=== PATIENT | male | born 1950 | race American Indian/Alaskan Native ===

== ENCOUNTER 2018-11-20 16:27 | Inpatient (IN) | payer MEDICARE ==
[2018-11-20] MEDS ORDERED: NACL 0.9% 500 ML 500 ML IV ONE (16:31)
--- NOTE | 2018-11-20 16:32 | Emergency Department Report ---
ED Neuro Deficit HPI - General Chief Complaint: Neuro Symptoms/Deficit Stated Complaint: NEURO ISSUES Time Seen by Provider: 11/20/18 16:29 Source: patient, EMS (verbal report received from EMS.EMS notes not available at time of chart dictation), RN notes reviewed Mode of arrival: Stretcher Limitations: No Limitations - History of Present Illness Initial Comments: This is a 68-year-old gentleman. This patient is not known to this provider previously. The patient does not know who his primary care doctor is. He does not know if he takes any long-term medications. The patient is brought to the hospital by emergency medical services as a possible code stroke. As per verbal report from EMS, they were contacted because the patient had altered mental status and lateralizing weakness. Symptoms included altered mental status, left-sided weakness. In addition, the patient was reportedly hypotensive with a blood pressure of the 90s in the fiel d. They report normal Accu-Chek. Upon arrival to the emergency room, the symptoms are resolved. The patient has no complaints at this time. He denies physical pain. He has no recollection of any these symptoms occurring. At this point in time, his is not available for collateral information or additional history. The patient does not recall the event -: Sudden Location: speech, left arm, left leg, altered Presenting Symptoms: Present: Altered Mental Status History of same: No Place: home Quality: other Improves With: other Worsens With: other Context: sudden onset, other (patient has no recollection of the symptoms, therefore, no exacerbating or relieving factors, radiation, or qualitative descriptors that he is able to recall) Associated Symptoms: confusion - Related Data Allergies/Adverse Reactions: Allergies Allergy/AdvReac Type Severity Reaction Status Date / Time No Known Allergies Allergy Unverified 11/20/18 16:31 ED Review of Systems ROS: Stated complaint: NEURO ISSUES Other details as noted in HPI Comment: Unobtainable due to pts medical conditions (patient has no recollection of the event) Constitutional: denies: fever Eyes: denies: eye discharge ENT: denies: epistaxis Respiratory: denies: cough Cardiovascular: denies: chest pain Gastrointestinal: denies: abdominal pain Genitourinary: denies: urgency Neurological: confusion ED Past Medical Hx - Past Medical History Previous Medical History?: No - Surgical History Past Surgical History?: No ED Neuro Physical Exam - General Limitations: No Limitations General appearance: alert, anxious Suspected Stroke: No - Head Head exam: Present: atraumatic, normocephalic - Eye Eye exam: Present: normal appearance, EOMI. Absent: nystagmus - ENT ENT exam: Present: normal exam, normal orophraynx, mucous membranes moist, normal external ear exam - Neck Neck exam: Present: normal inspection, full ROM. Absent: tenderness, meningismus - Respiratory Respiratory exam: Present: normal lung sounds bilaterally. Absent: respiratory distress - Cardiovascular Cardiovascular Exam: Present: regular rate, normal rhythm, normal heart sounds. Absent: bradycardia, tachycardia, irregular rhythm, systolic murmur, diastolic murmur, rubs, gallop - GI/Abdominal GI/Abdominal exam: Present: soft. Absent: distended, tenderness, guarding, rebound, rigid, pulsatile mass - Rectal Rectal exam: Present: deferred - Extremities Exam Extremities exam: Present: normal inspection, full ROM, other (2+ pulses noted in the bilateral upper, lower extremities. There is no long bony tenderness. The pelvis is stable. Muscular compartments are soft. There is no redness, pus, streaking or crepitus noted.). Absent: pedal edema, joint swelling, calf tenderness - Back Exam Back exam: Present: normal inspection, full ROM. Absent: tenderness, CVA tenderness (R), CVA tenderness (L), paraspinal tenderness, vertebral tenderness - Neurological Exam Neurological exam: Present: alert, other (Extraocular movements are intact bilaterally. There is no facial droop. The tongue is midline. Patient speaking in full complete sentences. There is no dysphonia. Hearing is grossly intact bilaterally. Shoulder shrug is intact bilaterally. 5/5 strength bilateral upper, lower extremities. Sensation is intact to light touch bilateral upper, lower extremities.). Absent: motor sensory deficit - NIHSS Assessment Interval: Baseline 1a. Level of Consciousness: alert/keenly responsive 1b. LOC Questions: answers both correctly 1c. LOC Commands: performs tasks correctly 2. Best Gaze: normal 3. Visual: no visual loss 4. Facial Palsy: normal symmetrical movement 5b. Motor Arm Right: no drift 5a. Motor Arm Left: no drift 6a. Motor Leg Left: no drift 6b. Motor Leg Right: no drift 7. Limb Ataxia: absent 8. Sensory: normal 9. Best Language: no aphasia 10. Dysarthria: normal 11. Extinction/Inattention: no abnormality Total Score: 0 Stroke Severity: No Stroke Symptoms - Psychiatric Psychiatric exam: Present: anxious - Skin Skin exam: Present: warm, dry, intact, normal color. Absent: rash ED Course Vital Signs 11/20/18 11/20/18 11/20/18 17:49 18:26 18:31 Temperature 98.0 F Pulse Rate 71 81 Respiratory 20 15 Rate Blood Pressure 113/54 Blood Pressure 127/62 [Right] O2 Sat by Pulse 100 100 100 Oximetry - Reevaluation(s) Reevaluation #1: 11/20/18 18:36 Differential diagnosis, including not limited to: Toxic encephalopathy, metabolic encephalopathy, stroke, TIA, dehydration, pneumonia, urinary tract infection Assessment and plan: 68-year-old gentleman, presenting with resolved left-sided weakness, resolved confusion, alert to name and location, follows commands, with a nonfocal neurologic examination. Does not meet TPa criteria at this time. P atient seen and evaluated by myself and stroke neurologist, Dr. Watson who also agrees independently. The patient's examination at this time is not consistent with a large vessel occlusion. He is awake and protecting his airway, and moving 4 extremities without difficulty. In addition, the patient is found to have renal insufficiency, of unknown chronicity. Elevated troponin reviewed and a ppreciated, the patient is not having chest pain, this is likely a type II troponin leak, likely secondary to renal insufficiency. Patient will be admitted to the medical service for expedited stroke workup, and further evaluation of renal insufficiency. Discussed with nephrology, Dr. Brito, who will follow in consultation. Extremities to the patient, who verbalized understanding, and is amenable to this plan of care. 11/20/18 18:38 11/20/18 18:39 Reevaluation #2: 11/20/18 18:41 Dr Deisy Arauz to admit - Lab Data Result diagrams: 11/20/18 17:17 11/20/18 17:17 Lab Results 11/20/18 11/20/18 11/20/18 Range/Units 17:17 17:17 17:17 WBC 6.9 (4.5-11.0) K/mm3 RBC 3.24 L (3.65-5.03) M/mm3 Hgb 10.2 L (11.8-15.2) gm/dl Hct 29.7 L (35.5-45.6) % MCV 92 (84-94) fl MCH 31 (28-32) pg MCHC 34 (32-34) % RDW 16.7 H (13.2-15.2) % Plt Count 190 (140-440) K/mm3 Lymph % (Auto) 18.2 (13.4-35.0) % [place] % (Auto) 6.0 (0.0-7.3) % Eos % (Auto) 7.2 H (0.0-4.3) % Baso % (Auto) 0.7 (0.0-1.8) % Lymph # 1.3 (1.2-5.4) K/mm3 Furnas # 0.4 (0.0-0.8) K/mm3 Eos # 0.5 H (0.0-0.4) K/mm3 Baso # 0.0 (0.0-0.1) K/mm3 Seg Neutrophils % 67.9 (40.0-70.0) % Seg Neutrophils # 4.7 (1.8-7.7) K/mm3 PT 13.6 (12.2-14.9) Sec. INR 1.07 (0.87-1.13) APTT 29.9 (24.2-36.6) Sec. Thrombin Time 15.3 (15.1-19.6) Sec. Sodium 138 (137-145) mmol/L Potassium 4.6 (3.6-5.0) mmol/L Chloride 107.6 H (98-107) mmol/L Carbon Dioxide 17 L (22-30) mmol/L Anion Gap 18 mmol/L BUN 47 H (9-20) mg/dL Creatinine 7.4 H (0.8-1.5) mg/dL Estimated GFR 9 ml/min BUN/Creatinine Ratio 6 % Glucose 130 H (75-100) mg/dL POC Glucose (70-105) Lactic Acid (0.7-2.0) mmol/L Calcium 9.4 (8.4-10.2) mg/dL Total Bilirubin 0.30 (0.1-1.2) mg/dL AST 9 (5-40) units/L ALT 6 L (7-56) units/L Alkaline Phosphatase 60 (35-129) units/L Total Creatine Kinase 100 (55-170) units/L CK-MB (CK-2) 4.9 H (0.0-4.0) ng/mL CK-MB (CK-2) Rel Index 4.9 H (0-4) Troponin T 0.079 H (0.00-0.029) ng/mL Total Protein 7.0 (6.3-8.2) g/dL Albumin 3.9 (3.9-5) g/dL Albumin/Globulin Ratio 1.3 % Salicylates (2.8-20.0) mg/dL Acetaminophen (10.0-30.0) ug/mL Plasma/Serum Alcohol (0-0.07) % 11/20/18 11/20/18 11/20/18 Range/Units 17:17 17:17 17:17 WBC (4.5-11.0) K/mm3 RBC (3.65-5.03) M/mm3 Hgb (11.8-15.2) gm/dl Hct (35.5-45.6) % MCV (84-94) fl MCH (28-32) pg MCHC (32-34) % RDW (13.2-15.2) % Plt Count (140-440) K/mm3 Lymph % (Auto) (13.4-35.0) % Furn[place] % (Auto) (0.0-7.3) % Eos % (Auto) (0.0-4.3) % Baso % (Auto) (0.0-1.8) % Lymph # (1.2-5.4) K/mm3 Furn[place] # (0.0-0.8) K/mm3 Eos # (0.0-0.4) K/mm3 Baso # (0.0-0.1) K/mm3 Seg Neutrophils % (40.0-70.0) % Seg Neutrophils # (1.8-7.7) K/mm3 PT (12.2-14.9) Sec. INR (0.87-1.13) APTT (24.2-36.6) Sec. Thrombin Time (15.1-19.6) Sec. Sodium (137-145) mmol/L Potassium (3.6-5.0) mmol/L Chloride (98-107) mmol/L Carbon Dioxide (22-30) mmol/L Anion Gap mmol/L BUN (9-20) mg/dL Creatinine (0.8-1.5) mg/dL Estimated GFR ml/min BUN/Creatinine Ratio % Glucose (75-100) mg/dL POC Glucose (70-105) Lactic Acid 1.10 (0.7-2.0) mmol/L Calcium (8.4-10.2) mg/dL Total Bilirubin (0.1-1.2) mg/dL AST (5-40) units/L ALT (7-56) units/L Alkaline Phosphatase (35-129) units/L Total Creatine Kinase (55-170) units/L CK-MB (CK-2) (0.0-4.0) ng/mL CK-MB (CK-2) Rel Index (0-4) Troponin T (0.00-0.029) ng/mL Total Protein (6.3-8.2) g/dL Albumin (3.9-5) g/dL Albumin/Globulin Ratio % Salicylates < 0.3 L (2.8-20.0) mg/dL Acetaminophen < 5.0 L (10.0-30.0) ug/mL Plasma/Serum Alcohol (0-0.07) % 11/20/18 11/20/18 Range/Units 17:17 17:37 WBC (4.5-11.0) K/mm3 RBC (3.65-5.03) M/mm3 Hgb (11.8-15.2) gm/dl Hct (35.5-45.6) % MCV (84-94) fl MCH (28-32) pg MCHC (32-34) % RDW (13.2-15.2) % Plt Count (140-440) K/mm3 Lymph % (Auto) (13.4-35.0) % [place] % (Auto) (0.0-7.3) % Eos % (Auto) (0.0-4.3) % Baso % (Auto) (0.0-1.8) % Lymph # (1.2-5.4) K/mm3 Furn[place] # (0.0-0.8) K/mm3 Eos # (0.0-0.4) K/mm3 Baso # (0.0-0.1) K/mm3 Seg Neutrophils % (40.0-70.0) % Seg Neutrophils # (1.8-7.7) K/mm3 PT (12.2-14.9) Sec. INR (0.87-1.13) APTT (24.2-36.6) Sec. Thrombin Time (15.1-19.6) Sec. Sodium (137-145) mmol/L Potassium (3.6-5.0) mmol/L Chloride (98-107) mmol/L Carbon Dioxide (22-30) mmol/L Anion Gap mmol/L BUN (9-20) mg/dL Creatinine (0.8-1.5) mg/dL Estimated GFR ml/min BUN/Creatinine Ratio % Glucose (75-100) mg/dL POC Glucose 136 H (70-105) Lactic Acid (0.7-2.0) mmol/L Calcium (8.4-10.2) mg/dL Total Bilirubin (0.1-1.2) mg/dL AST (5-40) units/L ALT (7-56) units/L Alkaline Phosphatase (35-129) units/L Total Creatine Kinase (55-170) units/L CK-MB (CK-2) (0.0-4.0) ng/mL CK-MB (CK-2) Rel Index (0-4) Troponin T (0.00-0.029) ng/mL Total Protein (6.3-8.2) g/dL Albumin (3.9-5) g/dL Albumin/Globulin Ratio % Salicylates (2.8-20.0) mg/dL Acetaminophen (10.0-30.0) ug/mL Plasma/Serum Alcohol < 0.01 (0-0.07) % - EKG Data -: EKG Interpreted by Sc EKG shows normal: sinus rhythm Rate: normal When compared to previous EKG there are: previous EKG unavailable 11/20/18 18:38 There is no prior EKG available for comparison. This is a normal sinus rhythm, 70 bpm, GA interval prolonged, QTC prolonged, left ventricular hypertrophy, poor R progression, left axis deviation, left anterior fascicular block, the EKG is abnormal, the EKG is not consistent with ST elevation myocardial infarction. - Radiology Data Radiology results: report reviewed, image reviewed X-ray of the chest is negative for acute traumatic disease. Noncontrast CT scan of the brain is negative for acute disease. - Core Measures Measure Exclusions: not indicated - Thrombolytic Inclusion/Exclusion Thrombolytic Contraindications: Rapidily Improving s/s Critical Care Time: No Critical care attestation.: If time is entered above; I have spent that time in minutes in the direct care of this critically ill patient, excluding procedure time. ED Disposition Clinical Impression: Stroke (cerebrum) Qualifiers: CVA mechanism: unspecified Qualified Code(s): I63.9 - Cerebral infarction, unspecified Renal failure Qualifiers: Renal failure chronicity: unspecified chronicity Qualified Code(s): N19 - Unspecified kidney failure Disposition: OP ADMIT IP TO THIS HOSP Is pt being admited?: Yes Does the pt Need Aspirin: Yes Condition: Serious
--- NOTE | 2018-11-20 16:58 | Cat Scan Report ---
CT head/brain wo con INDICATION: Stroke symptoms. TECHNIQUE: Routine CT head without contrast. All CT scans at this location are performed using CT dos e reduction for ALARA by means of automated exposure control. COMPARISON: None. FINDINGS: BRAIN / INTRACRANIAL CONTENTS: No acute hemorrhage, mass effect, midline shift, or hydrocephalus. No appreciable acute large territorial or lacunar infarct. There are multiple small chronic-appearing in farcts in the bilateral basal ganglia as well as moderate microvascular angiopathic change in the jaime p cerebral white matter. ORBITS: No significant abnormality of visualized orbits. SINUSES / MASTOIDS: No significant abnormality of visualized sinuses and mastoid air cells. ADDITIONAL FINDINGS: None. IMPRESSION: 1. No acute intracranial abnormality. 2. Multiple chronic appearing lacunar infarcts in the basal ganglia. CRITICAL RESULT: Time of Discovery: 3:52 PM Time of Communication: 3:53 PM Central time Licensed Practitioner Receiving Report: Dr. Romero Read Back Performed: Yes. Signer Name: Jaylen Abbasi MD Signed: 11/20/2018 4:53 PM Workstation Name: [id number]
--- NOTE | 2018-11-20 17:12 | Emergency Department Report ---
ED Neuro Deficit HPI - General Chief Complaint: Neuro Symptoms/Deficit Stated Complaint: NEURO ISSUES Time Seen by Provider: 11/20/18 16:29 Source: patient, EMS Mode of arrival: Stretcher Limitations: No Limitations - History of Present Illness Initial Comments: [facility] Tele[facility]urology [facility] The patient was informed the neurology consult would happen via TeleHealth by way of interactive audio and visual telecommunications and consented to receiving care in this manner for acute stroke protocol. DATE: Nov 20 2018 Impression: Left sided hemiparesis confusion Not a tpa candidate due to: Minor nondisabling symptoms at this point Symptoms (not) consistent with LVO therefore no role for KAYA at the moment, however with rapidly improving symptoms that were so drastic to recommend CTA head and neck to exclude unlikely possibility of large vessel occlusion if no large vessel occlusion is seen of course recommend aspirin admission for stroke/seizure workup. It is unusual that his blood pressure was somewhat low in the 90s systolic range on arrival. He is not complaining of any chest pain and has intact pulses however Differential Diagnosis: 1. Cardioembolic stroke 2. Small vessel disease/lacune 3. Thromboembolic, [id number] mechanism 4. Hypercoagulable state-related infarct 5. Transient ischemic attack 6. Thrombotic mechanism, large artery disease Comments: Last known normal 15:50 per initial report family not yet arrived Door time 16:27 [facility] contacted: 16:29 [facility] at bedside: 16:37 NIHSS assessment time:16:41 Recommendations: - stroke /seizure workup - given rapid resolution of severe symptoms recommend cta h/n to exclude good collateral flow with LVO given still subtle left sided arm drift Inpatient neurology consultation Inpatient stroke evaluation as per Neurology/ Internal Medicine Discussed with ED MD Please call with questions CC left-sided weakness History of Present Illness Patient is a 68-year-old gentleman with a history of high blood pressure no other health issues who today per report was in his usual state of health until approximately 15:50. Apparently someone at his house called 911 because he seemed confused with left-sided weakness of the arm and leg. When EMS arrived they said he was completely flaccid on the left side and that his blood pressure was 90/40. There was no report of loss of consciousness. He takes no blood thinners and has no history of other conditions. The patient himself was not really aware of much in the way of symptoms. Unfortunately family has not yet arrived at bedside. But pressures now somewhat improved at 110 systolic with most of his symptoms resolved. He denies any headache chest pain or shortness of breath Diagnostic: CT head without contrast no acute changes Exam: 1a- LOC: Keenly responsive - =0 1b- LOC questions: Answers both questions correctly - 0 1c- LOC commands- Performs both tasks correctly- 0 2- Gaze: Normal; no gaze paresis or gaze deviation - 0 3- Visual [place]: normal, no Visual field deficit - 0 4- Facial movements: no facial palsy - 0 5- Upper limb motor -trace L upper extremity drift but no weakness on formal manual testing=1 6- Lower limb motor - no drift - 0 7- Limb Coordination: absent ataxia - 0 8- Sensory : no sensory loss - 0 9- Language - No aphasia - 0 10- Speech - No dysarthria -0 11- Neglect / Extinction - none found -0 NIHSS score 1 Medical Decision Making: - Extensive number of diagnosis or management options are considered above. - Extensive amount of complex data reviewed. - High risk of complication and/or morbidity or mortality are associated with differential diagnostic considerations above. - There may be Uncertain outcome and increased probability of prolonged fu nctional impairment or high probability of severe prolonged functional impairment associated with some of these differential diagnosis. Medical Data Reviewed: 1.Data reviewed include clinical labs, radiology, Medical Tests; 2.Tests results discussed w/performing or interpreting physician; 3.Obtaining/reviewing old medical records; 4.Obtaining case history from another source; 5.Independent review of image, tracing or specimen. Patient was informed the Neurology Consult would happen via telehealth (remote video) and consented to receiving care in this manner. -: Sudden - Related Data Allergies/Adverse Reactions: Allergies Allergy/AdvReac Type Severity Reaction Status Date / Time No Known Allergies Allergy Unverified 11/20/18 16:31 ED Review of Systems ROS: Stated complaint: NEURO ISSUES Other details as noted in HPI ED Past Medical Hx - Past Medical History Previous Medical History?: No - Surgical History Past Surgical History?: No ED Neuro Physical Exam - General Limitations: No Limitations Suspected Stroke: Yes - NIHSS Assessment Interval: Baseline 1a. Level of Consciousness: alert/keenly responsive 1b. LOC Questions: answers both correctly 1c. LOC Commands: performs tasks correctly 2. Best Gaze: normal 3. Visual: no visual loss 4. Facial Palsy: normal symmetrical movement 5b. Motor Arm Right: no drift 5a. Motor Arm Left: drift 6a. Motor Leg Left: no drift 6b. Motor Leg Right: no drift 7. Limb Ataxia: absent 8. Sensory: normal 9. Best Language: no aphasia 10. Dysarthria: normal 11. Extinction/Inattention: no abnormality Total Score: 1 Stroke Severity: Minor Stroke Critical care attestation.: If time is entered above; I have spent that time in minutes in the direct care of this critically ill patient, excluding procedure time. ED Disposition Clinical Impression: Stroke (cerebrum) Qualifiers: CVA mechanism: unspecified Qualified Code(s): I63.9 - Cerebral infarction, unspecified Disposition: DC-09 OP ADMIT IP TO THIS HOSP Is pt being admited?: Yes Does the pt Need Aspirin: Yes Condition: Stable
[2018-11-20 17:39] LABS: Basophils % (Auto) 0.7 % (0.0-1.8); Eosinophils # (Auto) 0.5 K/mm3 (0.0-0.4); Eosinophils % (Auto) 7.2 % (0.0-4.3); Hematocrit 29.7 % (35.5-45.6); Hemoglobin 10.2 gm/dl (11.8-15.2); Lymphocytes # (Auto) 1.3 K/mm3 (1.2-5.4); Lymphocytes % (Auto) 18.2 % (13.4-35.0); Mean Corpuscular HGB Conc 34 % (32-34); Mean Corpuscular Volume 92 fl (84-94); Monocytes # (Auto) 0.4 K/mm3 (0.0-0.8); Platelet Count 190 K/mm3 (140-440); Red Blood Count 3.24 M/mm3 (3.65-5.03); Red Cell Distribution Width 16.7 % (13.2-15.2)
--- NOTE | 2018-11-20 17:46 | XRay Report ---
CHEST 1 VIEW INDICATION / CLINICAL INFORMATION: weak ams hypotension. COMPARISON: None available. FINDINGS: SUPPORT DEVICES: None. HEART / MEDIASTINUM: Cardiomegaly LUNGS / PLEURA: Nodule in the right lower thorax laterally No pneumothorax. ADDITIONAL FINDINGS: No significant additional findings. IMPRESSION: Cardiomegaly. There is a small nodule in the right lower lung laterally Signer Name: Karel Mata MD FACDeisy Signed: 11/20/2018 5:41 PM Workstation Name: [id number]
[2018-11-20 18:04] LABS: Creatine Kinase MB 4.9 ng/mL (0.0-4.0)
[2018-11-20 18:05] LABS: Albumin 3.9 g/dL (3.9-5); Calcium 9.4 mg/dL (8.4-10.2)
[2018-11-20 18:13] LABS: INR 1.07 (0.87-1.13); Partial Thromboplastin Time 29.9 Sec. (24.2-36.6); Thrombin Time 15.3 Sec. (15.1-19.6)
[2018-11-20] MEDS ORDERED: BABY ASPIRIN PO ONE (18:40)
[2018-11-20 19:06] LABS: Chol/HDL Ratio 3.03 %
[2018-11-20] MEDS ORDERED: DULCOLAX PR PRN (20:41)
[2018-11-20] MEDS ORDERED: ZOFRAN IV PRN (20:41)
[2018-11-20] MEDS ORDERED: PROVENTIL IH PRN (20:41)
[2018-11-20] MEDS ORDERED: PHENERGAN PR PRN (20:41)
[2018-11-20] MEDS ORDERED: MILK OF MAGNESIA PO PRN (20:41)
[2018-11-20] MEDS ORDERED: TYLENOL PO PRN (20:41)
--- NOTE | 2018-11-20 20:41 | History and Physical Report ---
History of Present Illness Chief complaint: I felt funny History of present illness: 68 YO Male with No PMH presents to ED for evaluation. Pt is confused and unable to provide detailed history. Pt history taken from EMS, ED staff, and . As per , the patient was in his usual state on health today. Pt was found by his to have confusion, difficulty speaking, and Left sided weakness. EMS notified,and upon arrival the patient was found to have a neurologic deficit. A code stroke was called and the patient was transported to [facility]. Pt seen and evaluated in ED and found to have symptoms consistent with CVA. Teleneurology consulted. Pt deemed not to be a candidate for TPA. Pt admitted to telemetry and initiated on CVA protocol. Pt also found to have RUTH and Nephrology team consulted in ED. No prior admission for review. No medication listed for reconciliation at time of admission. No further history obtainable. Pt is confused at time of exam, but has positive gag reflex, and is able to protect his airway. Past History Past Medical History: No medical history, other (reviewed) Past Surgical History: No surgical history, Other (reviewed) Social history: , lives with family. denies: smoking, alcohol abuse, prescription drug abuse Family history: no significant family history (reviewed) Medications and Allergies Allergies Allergy/AdvReac Type Severity Reaction Status Date / Time No Known Allergies Allergy Unverified 11/20/18 16:31 Home Medications Medication Instructions Recorded Confirmed Last Taken Type No Known Home Medications [No 11/20/18 11/20/18 Unknown History Reported Home Medications] Review of Systems ROS unobtainable: due to mental status Exam - Constitutional Vitals: Temp Pulse Resp BP Pulse Ox 97.9 F 86 14 101/58 98 11/20/18 19:10 11/20/18 19:10 11/20/18 19:10 11/20/18 19:10 11/20/18 19:10 General appearance: Present: mild distress - EENT Eyes: Present: PERRL ENT: hearing intact, clear oral mucosa - Neck Neck: Present: supple, normal ROM - Respiratory Respiratory effort: normal Respiratory: bilateral: CTA - Cardiovascular Heart Sounds: Present: S1 & S2. Absent: rub, click - Extremities Extremities: pulses symmetrical, No edema Peripheral Pulses: within normal limits - Abdominal General gastrointestinal: Present: soft, non-tender, non-distended, normal bowel sounds Male genitourinary: Present: normal - Integumentary Integumentary: Present: clear, warm, dry - Musculoskeletal Musculoskeletal: left sided weakness - Psychiatric Psychiatric: no appropriate mood/affect, no intact judgment & insight, no memory intact - Neurologic Neurologic: CNII-XII intact, moves all extremities Results - Labs CBC & Chem 7: 11/20/18 17:17 11/20/18 17:17 Labs: Abnormal lab results 11/20/18 11/20/18 11/20/18 Range/Units 17:17 17:17 17:17 RBC 3.24 L (3.65-5.03) M/mm3 Hgb 10.2 L (11.8-15.2) gm/dl Hct 29.7 L (35.5-45.6) % RDW 16.7 H (13.2-15.2) % Eos % (Auto) 7.2 H (0.0-4.3) % Eos # 0.5 H (0.0-0.4) K/mm3 Chloride 107.6 H (98-107) mmol/L Carbon Dioxide 17 L (22-30) mmol/L BUN 47 H (9-20) mg/dL Creatinine 7.4 H (0.8-1.5) mg/dL Glucose 130 H (75-100) mg/dL POC Glucose (70-105) ALT 6 L (7-56) units/L CK-MB (CK-2) 4.9 H (0.0-4.0) ng/mL CK-MB (CK-2) Rel Index 4.9 H (0-4) Troponin T 0.079 H (0.00-0.029) ng/mL Salicylates < 0.3 L (2.8-20.0) mg/dL Acetaminophen (10.0-30.0) ug/mL 11/20/18 11/20/18 Range/Units 17:17 17:37 RBC (3.65-5.03) M/mm3 Hgb (11.8-15.2) gm/dl Hct (35.5-45.6) % RDW (13.2-15.2) % Eos % (Auto) (0.0-4.3) % Eos # (0.0-0.4) K/mm3 Chloride (98-107) mmol/L Carbon Dioxide (22-30) mmol/L BUN (9-20) mg/dL Creatinine (0.8-1.5) mg/dL Glucose (75-100) mg/dL POC Glucose 136 H (70-105) ALT (7-56) units/L CK-MB (CK-2) (0.0-4.0) ng/mL CK-MB (CK-2) Rel Index (0-4) Troponin T (0.00-0.029) ng/mL Salicylates (2.8-20.0) mg/dL Acetaminophen < 5.0 L (10.0-30.0) ug/mL Assessment and Plan - Patient Problems (1) CVA (cerebral vascular accident) Status: Acute Plan to address problem: CT Head,Neuro check, PT/OT/Speech therapy, Neuro Check, Seizure precautions, lipid panel, statin therapy, antiplatelet therapy, Echo, Carotid Doppler, neurol ogy consulted. (2) RTUH (acute kidney injury) Status: Acute Plan to address problem: nephrology consulted, urine electrolytes, monitor uop q shift, renal ultrasound (3) Encephalopathy Status: Acute Plan to address problem: CT Head, neuro check, seizure precautions, thyroid panel (4) DVT prophylaxis Status: Acute Plan to address problem: SCD to BLE while in bed,
[2018-11-21 00:37] LABS: Bacteria,Urine 1+ /HPF (Negative); Bilirubin,Urine NEG (Negative); Blood,Urine NEG (Negative); Color,Urine Yellow (Yellow); Mucus,Urine FEW /HPF; Urobilinogen,Urine < 2.0 mg/dL (<2.0); WBC,Urine < 1.0 /HPF (0.0-6.0)
[2018-11-21 00:39] LABS: Creatinine,Urine 167.3 mg/dL (0.1-20.0)
--- NOTE | 2018-11-21 08:08 | Consultation ---
History of Present Illness - Reason for Consult Consult date: 11/21/18 acute renal failure Requesting physician: EDITA ZARATE - History of Present Illness This is a 68 yo AAM with no significant PMH who BIBEMS to [facility] ED for evaluation of confusion and difficulty speaking. As per , the patient was in his usual state on health until yesterday AM, however in PM noticed change of pt's mental status and slurred speech along with left sided weakness. EMS not ified,and upon arrival the patient was found to have a neurologic deficit. A code stroke was called and the patient was transported to [facility]. Pt seen and evaluated in ED and found to have symptoms consistent with CVA. Teleneurology wasconsulted. Pt deemed not to be a candidate for TPA. Pt admitted to telemetry and initiated on CVA protocol. labs showed significantly elevated BUN/Cr at 47/7.4mg/dl for which renal consult is requested. Pt seen and examined this AM at bedside, he is more awake, alert, denies CP, palpitations, SOB, fever, chills, n/v/d, dysuria, abd pain. pt is not aware of any previous renal disease, denies recent NSAIDs use or IV contrast exposure. Past History Past Medical History: No medical history, other (reviewed) Past Surgical History: No surgical history, Other (reviewed) Social history: , lives with family. denies: smoking, alcohol abuse, prescription drug abuse Family history: no significant family history (reviewed) Medications and Allergies Allergies Allergy/AdvReac Type Severity Reaction Status Date / Time No Known Allergies Allergy Unverified 11/20/18 16:31 Home Medications Medication Instructions Recorded Confirmed Last Taken Type No Known Home Medications [No 11/20/18 11/20/18 Unknown History Reported Home Medications] Active Meds: Active Medications Acetaminophen (Tylenol) 650 mg PO Q4H PRN PRN Reason: Pain, Mild (1-3) Albuterol (Proventil) 2.5 mg IH Q3HRT PRN PRN Reason: Shortness Of Breath Aspirin (Aspirin) 325 mg PO QDAY BECKIE Atorvastatin Calcium (Lipitor) 40 mg PO QHS [facility] Last Admin: 11/21/18 01:07 Dose: 40 mg Documented by: Bisacodyl (Dulcolax) 10 mg [place] QDAY PRN PRN Reason: Constipation Magnesium Hydroxide (Milk Of Magnesia) 30 ml PO Q4H PRN PRN Reason: Constipation Metoclopramide HCl (Reglan) 10 mg PO Q6H PRN PRN Reason: Nausea And Vomiting Ondansetron HCl (Zofran) 4 mg IV Q8H PRN PRN Reason: Nausea And Vomiting Pneumococcal Polyvalent Vaccine (Pneumovax 23) 0.5 ml IM .ONCE ONE Stop: 11/21/18 12:01 Promethazine HCl (Phenergan) 25 mg [place] Q6H PRN PRN Reason: Nausea And Vomiting Sodium Chloride (Sodium Chloride Flush Syringe 10 Ml) 10 ml IV PRN PRN PRN Reason: LINE FLUSH Review of Systems All systems: negative Constitutional: fatigue, weakness Neurological: weakness, change in speech, change in mentation Exam - Vital Signs Vital signs: Vital Signs Pulse Resp BP Pulse Ox 71 20 113/54 100 11/20/18 17:49 11/20/18 17:49 11/20/18 17:49 11/20/18 17:49 - General Appearance General appearance: well-developed, well-nourished, appears stated age EENT: ATNC, PERRL, mucous membranes moist Neck: Present: neck supple Respiratory: Clear to Ascultation Heart: regular, S1S2 Gastrointestinal: Present: normoactive bowel sounds Integumentary: no rash, other (no edema ) Neurologic: no focal deficit, alert and oriented x3, strength 5/5, CN 3-12 intact Psychiatric: mood/affect appropriate, cooperative Results - Lab Results 11/20/18 17:17 11/20/18 17:17 Most recent lab results Calcium 9.4 mg/dL (8.4-10.2) 11/20/18 17:17 167.3 mg/dL (0.1-20.0) H 11/20/18 23:48 36 mmol/L 11/20/18 23:48 Laboratory Tests 11/20/18 11/20/18 11/20/18 17:17 17:17 17:17 Triglycerides 63 Cholesterol 161 LDL Cholesterol Direct 104 HDL Cholesterol 53 Cholesterol/HDL Ratio 3.03 Urine Color Urine Turbidity Urine pH Ur Specific [place] Urine Protein Urine Glucose (UA) Urine Ketones Urine Blood Urine Nitrite Urine Bilirubin Urine Urobilinogen Ur Leukocyte Esterase Urine WBC (Auto) Urine RBC (Auto) U Epithel Cells (Auto) Urine Bacteria (Auto) Urine Mucus Urine Creatinine Urine Sodium Salicylates < 0.3 L Acetaminophen < 5.0 L Plasma/Serum Alcohol 11/20/18 11/20/18 11/20/18 17:17 23:48 23:48 Triglycerides Cholesterol LDL Cholesterol Direct HDL Cholesterol Cholesterol/HDL Ratio Urine Color Yellow Urine Turbidity Clear Urine pH 5.0 Ur Specific [place] 1.012 Urine Protein 30 mg/dl Urine Glucose (UA) 50 Urine Ketones Neg Urine Blood Neg Urine Nitrite Neg Urine Bilirubin Neg Urine Urobilinogen < 2.0 Ur Leukocyte Esterase Neg Urine WBC (Auto) < 1.0 Urine RBC (Auto) 3.0 U Epithel Cells (Auto) < 1.0 Urine Bacteria (Auto) 1+ Urine Mucus Few Urine Creatinine 167.3 H Urine Sodium 36 Salicylates Acetaminophen Plasma/Serum Alcohol < 0.01 Assessment and Plan - Patient Problems (1) RUTH (acute kidney injury) Current Visit: No Status: Acute Plan to address problem: suspect acute pre-renal azotemia, UA shows no evidence of hematuria, only mild proteinuria. check urine protein/cr ratio. unclear whether patient has underlying CKD. Obtain renal US to assess kidney size, structural abnormalities. avoid nephrotoxins, NSAIDs, IV contrast. pt remains non-oliguric, currently without acute indication for renal replacement therapy. (2) CVA (cerebral vascular accident) Current Visit: No Status: Acute Plan to address problem: initial CT head showed no acute findings, however multiple chronic appearing lacunar infarcts in the basal ganglia reported. (3) Encephalopathy Current Visit: No Status: Acute Plan to address problem: improving
[2018-11-21] MEDS: ASPIRIN PO SCH ×2 (11:29→12:16)
[2018-11-21] MEDS ORDERED: PNEUMOVAX 23 IM ONE (12:00)
--- NOTE | 2018-11-21 12:57 | Progress Note ---
Subjective Date of service: 11/21/18 Interval history: patient seen and evaluated she is very confused suspect metablic factors prwesently has memory loss and VT shows severe atrohpy Objective - Vital Sign Vital Signs - 12hr 11/21/18 11/21/18 11/21/18 04:18 04:20 07:50 Temperature 98.5 F 98.4 F Pulse Rate 71 71 Respiratory 18 16 Rate Blood Pressure 146/73 151/78 O2 Sat by Pulse 99 100 Oximetry 11/21/18 10:00 Temperature Pulse Rate 76 Respiratory Rate Blood Pressure O2 Sat by Pulse Oximetry - Laboratory Findings CBC and BMP: 11/20/18 17:17 11/20/18 17:17 Abnormal Lab Findings: Abnormal Labs 11/20/18 11/20/18 11/20/18 17:17 17:17 17:17 RBC 3.24 L Hgb 10.2 L Hct 29.7 L RDW 16.7 H Eos % (Auto) 7.2 H Eos # 0.5 H Chloride 107.6 H Carbon Dioxide 17 L BUN 47 H Creatinine 7.4 H Glucose 130 H POC Glucose ALT 6 L CK-MB (CK-2) 4.9 H CK-MB (CK-2) Rel Index 4.9 H Troponin T 0.079 H Urine Creatinine Salicylates < 0.3 L Acetaminophen 11/20/18 11/20/18 11/20/18 17:17 17:37 23:48 RBC Hgb Hct RDW Eos % (Auto) Eos # Chloride Carbon Dioxide BUN Creatinine Glucose POC Glucose 136 H ALT CK-MB (CK-2) CK-MB (CK-2) Rel Index Troponin T Urine Creatinine 167.3 H Salicylates Acetaminophen < 5.0 L
--- NOTE | 2018-11-21 13:06 | Progress Note ---
Assessment and Plan Assessment and plan: Patient is 68 yo man without chronic known medical problems who presents to [facility] ED with AMS. As per , the patient had confusion, difficulty speaking, and Left sided weakness. EMS notified,and upon arrival the patient was found to have a neurologic deficit. A code stroke was called and the patient was transported to [facility]. Pt seen and evaluated in ED and found to have symptoms consistent with CVA. Teleneurology consulted. Pt deemed not to be a candidate for TPA. Pt admitted to telemetry and initiated on CVA protocol. Pt also found to have RUTH and Nephrology team consulted in ED. No prior admission for review. No medication listed for reconciliation at time of admission. No further history obtainable. Pt is confused at time of exam, but has positive gag reflex, and is able to protect his airway. -CVA (cerebral vascular accident) Status: Acute Plan to address problem: CT Head,Neuro check, PT/OT/Speech therapy, Neuro Check, Seizure precautions, lipid panel, statin therapy, antiplatelet therapy, Echo, Carotid Doppler, neurology consulted. - RUTH (acute kidney injury) Status: Acute Plan to address problem: vasomotor nephropathy+atn nephrology consulted, urine electrolytes, monitor uop q shift, renal ultrasound -Acute metabolic Encephalopathy Status: Acute Plan to address problem: CT Head, neuro check, seizure precautions, thyroid panel -Elevated troponin repeat, suspect related to Cr of 7.4 -DVT prophylaxis Status: Acute Plan to address problem: SCD to BLE while in bed, renal u/s pending MRI ordered follow up repeat troponin History Interval history: Patient was seen and examined. Follow-up on current diagnosis of AMS. No overnight events reported to me. Patient denies any chest pain, shortness breath, nausea/vomiting or severe headaches. Imaging, nursing note, chart, labs and old chart reviewed. Discussed with patient. Hospitalist Physical - Physical exam Narrative exam: Gen: WDWN, NAD, Awake, Alert, Orientated x 1 HEENT: NCAT, EOMI, PERRL, OP Clear Neck: supple, no adenopathy, no thyromegaly, no JVD CVS/Heart: RRR, normal S1S2, pulses present bilaterally Chest/Lungs: CTA B, Symmetrical chest expansion, good air entry bilaterally GI/Abdomen: soft, NTND, good bowel sounds, no guarding or rebound /Bladder: no suprapubic tenderness, no CVA or paraspinal tenderness Extermity/Skin: no c/c/e, no obvious rash MSK: FROM x 4 Neuro: CN 2-12 grossly intact, no new focal deficits Psych: calm - Constitutional Vitals: Temp Pulse Resp BP Pulse Ox 98.4 F 76 16 151/78 100 11/21/18 07:50 11/21/18 10:00 11/21/18 07:50 11/21/18 07:50 11/21/18 07:50 Results - Labs CBC & Chem 7: 11/20/18 17:17 11/20/18 17:17 Labs: Laboratory Last Values WBC 6.9 K/mm3 (4.5-11.0) 11/20/18 17:17 RBC 3.24 M/mm3 (3.65-5.03) L 11/20/18 17:17 Hgb 10.2 gm/dl (11.8-15.2) L 11/20/18 17:17 Hct 29.7 % (35.5-45.6) L 11/20/18 17:17 MCV 92 fl (84-94) 11/20/18 17:17 MCH 31 pg (28-32) 11/20/18 17:17 MCHC 34 % (32-34) 11/20/18 17:17 RDW 16.7 % (13.2-15.2) H 11/20/18 17:17 Plt Count 190 K/mm3 (140-440) 11/20/18 17:17 Lymph % (Auto) 18.2 % (13.4-35.0) 11/20/18 17:17 [place] % (Auto) 6.0 % (0.0-7.3) 11/20/18 17:17 Eos % (Auto) 7.2 % (0.0-4.3) H 11/20/18 17:17 Baso % (Auto) 0.7 % (0.0-1.8) 11/20/18 17:17 Lymph # 1.3 K/mm3 (1.2-5.4) 11/20/18 17:17 [place] # 0.4 K/mm3 (0.0-0.8) 11/20/18 17:17 Eos # 0.5 K/mm3 (0.0-0.4) H 11/20/18 17:17 Baso # 0.0 K/mm3 (0.0-0.1) 11/20/18 17:17 Seg Neutrophils % 67.9 % (40.0-70.0) 11/20/18 17:17 Seg Neutrophils # 4.7 K/mm3 (1.8-7.7) 11/20/18 17:17 PT 13.6 Sec. (12.2-14.9) 11/20/18 17:17 INR 1.07 (0.87-1.13) 11/20/18 17:17 APTT 29.9 Sec. (24.2-36.6) 11/20/18 17:17 15.3 Sec. (15.1-19.6) 11/20/18 17:17 Sodium 138 mmol/L (137-145) 11/20/18 17:17 Potassium 4.6 mmol/L (3.6-5.0) 11/20/18 17:17 Chloride 107.6 mmol/L (98-107) H 11/20/18 17:17 Carbon Dioxide 17 mmol/L (22-30) L 11/20/18 17:17 18 mmol/L 11/20/18 17:17 BUN 47 mg/dL (9-20) H 11/20/18 17:17 7.4 mg/dL (0.8-1.5) H 11/20/18 17:17 Estimated GFR 9 ml/min 11/20/18 17:17 6 % 11/20/18 17:17 Glucose 130 mg/dL (75-100) H 11/20/18 17:17 POC Glucose 136 (70-105) H 11/20/18 17:37 Lactic Acid 1.10 mmol/L (0.7-2.0) 11/20/18 17:17 Calcium 9.4 mg/dL (8.4-10.2) 11/20/18 17:17 0.30 mg/dL (0.1-1.2) 11/20/18 17:17 AST 9 units/L (5-40) 11/20/18 17:17 ALT 6 units/L (7-56) L 11/20/18 17:17 60 units/L (35-129) 11/20/18 17:17 100 units/L (55-170) 11/20/18 17:17 CK-MB (CK-2) 4.9 ng/mL (0.0-4.0) H 11/20/18 17:17 CK-MB (CK-2) Rel Index 4.9 (0-4) H 11/20/18 17:17 0.079 ng/mL (0.00-0.029) H 11/20/18 17:17 7.0 g/dL (6.3-8.2) 11/20/18 17:17 3.9 g/dL (3.9-5) 11/20/18 17:17 1.3 % 11/20/18 17:17 Triglycerides 63 mg/dL (2-149) 11/20/18 17:17 Cholesterol 161 mg/dL (50-199) 11/20/18 17:17 104 mg/dL (50-130) 11/20/18 17:17 53 mg/dL (40-59) 11/20/18 17:17 3.03 % 11/20/18 17:17 TSH 2.960 mlU/mL (0.270-4.200) 11/20/18 Unknown Yellow (Yellow) 11/20/18 23:48 Clear (Clear) 11/20/18 23:48 5.0 (5.0-7.0) 11/20/18 23:48 Ur Specific [place] 1.012 (1.003-1.030) 11/20/18 23:48 30 mg/dl mg/dL (Negative) 11/20/18 23:48 50 mg/dL (Negative) 11/20/18 23:48 Neg mg/dL (Negative) 11/20/18 23:48 Neg (Negative) 11/20/18 23:48 Neg (Negative) 11/20/18 23:48 Neg (Negative) 11/20/18 23:48 < 2.0 mg/dL (<2.0) 11/20/18 23:48 Ur Leukocyte Esterase Neg (Negative) 11/20/18 23:48 < 1.0 /HPF (0.0-6.0) 11/20/18 23:48 3.0 /HPF (0.0-6.0) 11/20/18 23:48 U Epithel Cells (Auto) < 1.0 /HPF (0-13.0) 11/20/18 23:48 1+ /HPF (Negative) 11/20/18 23:48 Few /HPF 11/20/18 23:48 167.3 mg/dL (0.1-20.0) H 11/20/18 23:48 36 mmol/L 11/20/18 23:48 Salicylates < 0.3 mg/dL (2.8-20.0) L 11/20/18 17:17 Acetaminophen < 5.0 ug/mL (10.0-30.0) L 11/20/18 17:17 Plasma/Serum Alcohol < 0.01 % (0-0.07) 11/20/18 17:17 Active Medications - Current Medications Current Medications: Generic Name Dose Route Start Last Admin Trade Name Freq PRN Reason Stop Dose Admin Acetaminophen 650 mg 11/20/18 20:41 Tylenol PO Q4H PRN Pain, Mild (1-3) Albuterol 2.5 mg 11/20/18 20:41 Proventil IH Q3HRT PRN Shortness Of Breath Aspirin 325 mg 11/21/18 10:00 11/21/18 12:16 Aspirin PO 325 mg QDAY BECKIE Administration Atorvastatin Calcium 40 mg 11/20/18 22:00 11/21/18 01:07 Lipitor PO 40 mg QHS BECKIE Administration Bisacodyl 10 mg 11/20/18 20:41 Dulcolax MD QDAY PRN Constipation Magnesium Hydroxide 30 ml 11/20/18 20:41 Milk Of Magnesia PO Q4H PRN Constipation Metoclopramide HCl 10 mg 11/20/18 20:41 Reglan PO Q6H PRN Nausea And Vomiting Ondansetron HCl 4 mg 11/20/18 20:41 Zofran IV Q8H PRN Nausea And Vomiting Promethazine HCl 25 mg 11/20/18 20:41 Phenergan MD Q6H PRN Nausea And Vomiting Sodium Chloride 10 ml 11/20/18 20:41 Sodium Chloride Flush Syringe 10 Ml IV PRN PRN LINE FLUSH
--- NOTE | 2018-11-21 13:07 | Vascular Lab Report ---
VL carotid duplex BILAT INDICATION / CLINICAL INFORMATION: stroke. Doppler ultrasound and spectral analysis was performed on both carotid arteries COMPARISON: None available. FINDINGS: Minimal plaque is seen bilaterally. Peak systolic velocity is 88 on the right and 102 on the left. En d-diastolic velocity is 27 on the right and 25 on the left. Systolic velocity ratio is 1.1 on the rig ht and 1.0 on the left. Antegrade flow is seen in both vertebral arteries. IMPRESSION: 20-30% stenosis of both internal carotid arteries based on velocity criteria similar to the NASCET cr iteria. No hemodynamically significant stenosis. Signer Name: Karel Mata MD FACR Signed: 11/21/2018 1:03 PM Workstation Name: [id number]
--- NOTE | 2018-11-21 13:33 | Ultrasound Report ---
ULTRASOUND RENAL INDICATION / CLINICAL INFORMATION: Acute renal failure. COMPARISON: None available. FINDINGS: RIGHT KIDNEY: Length = 9 cm. LEFT KIDNEY: Length = 9 cm. URINARY BLADDER: No significant abnormality. FREE FLUID: None. Echogenic kidneys. IMPRESSION: Echogenic kidneys consistent with medical renal disease. No hydronephrosis. Signer Name: Tyson Wan MD Signed: 11/21/2018 1:29 PM Workstation Name: [id number]
[2018-11-21 20:23] LABS: Creatinine,Urine 96.4 mg/dL (0.1-20.0)
--- NOTE | 2018-11-22 11:02 | Progress Note ---
Assessment and Plan Assessment and plan: Patient is 68 yo man without chronic known medical problems who presents to [facility] ED with AMS. As per , the patient had confusion, difficulty speaking, and Left sided weakness. EMS notified,and upon arrival the patient was found to have a neurologic deficit. A code stroke was called and the patient was transported to [facility]. Pt seen and evaluated in ED and found to have symptoms consistent with CVA. Teleneurology consulted. Pt deemed not to be a candidate for TPA. Pt admitted to telemetry and initiated on CVA protocol. Pt also found to have RUTH and Nephrology team consulted in ED. No prior admission for review. No medication listed for reconciliation at time of admission. No further history obtainable. Pt is confused at time of exam, but has positive gag reflex, and is able to protect his airway. MRI: 1. Evidence of multiple remote hypertensive microhemorrhages. 2. Evidence of multiple remote small deep infarctions. 3. Evidence of remote hemorrhagic infarction involving the left occipital lobe. 4. 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 5. No indication of acute infarction or recent hemorrhage is identified. -CVA (cerebral vascular accident) CT Head,Neuro check, PT/OT/Speech therapy, Neuro Check, Seizure precautions, lipid panel, statin therapy, antiplatelet therapy, Echo, Carotid Doppler, neurology consulted. workup including MRI-No acute stroke but multiple remote hypertensive microhemorrhages, and remote hemorrhagic Infarction involving the left occipital lobe Neurology is of opinion that this is metabolic in nature - RUTH (acute kidney injury) secondary to vasomotor nephropathy+atn nephrology consulted, urine electrolytes, monitor uop q shift, renal ultrasound -Metabolic Acidosis likely progression of disease. -Acute metabolic Encephalopathy CT Head, neuro check, seizure precautions, thyroid panel -[place] type 2 repeat, suspect related to Cr of 7.4 -DVT prophylaxis SCD to BLE while in bed, History Interval history: Patient seen and examined. No complaints at this time. Hospitalist Physical - Physical exam Narrative exam: Gen: WDWN, NAD, Awake, Alert, Orientated x 2 HEENT: NCAT, EOMI, PERRL, OP Clear Neck: supple, no adenopathy, no thyromegaly, no JVD CVS/Heart: RRR, normal S1S2, pulses present bilaterally Chest/Lungs: CTA B, Symmetrical chest expansion, good air entry bilaterally GI/Abdomen: soft, NTND, good bowel sounds, no guarding or rebound /Bladder: no suprapubic tenderness, no CVA or paraspinal tenderness Extermity/Skin: no c/c/e, no obvious rash MSK: FROM x 4 Neuro: CN 2-12 grossly intact, no new focal deficits Psych: calm - Constitutional Vitals: Temp Pulse Resp BP Pulse Ox 98.6 F 83 18 163/92 99 11/22/18 05:26 11/22/18 05:25 11/22/18 05:25 11/22/18 05:25 11/22/18 05:25 General appearance: Present: mild distress Results - Labs CBC & Chem 7: 11/23/18 04:57 11/23/18 04:57 Labs: Laboratory Last Values WBC 6.9 K/mm3 (4.5-11.0) 11/20/18 17:17 RBC 3.24 M/mm3 (3.65-5.03) L 11/20/18 17:17 Hgb 10.2 gm/dl (11.8-15.2) L 11/20/18 17:17 Hct 29.7 % (35.5-45.6) L 11/20/18 17:17 MCV 92 fl (84-94) 11/20/18 17:17 MCH 31 pg (28-32) 11/20/18 17:17 MCHC 34 % (32-34) 11/20/18 17:17 RDW 16.7 % (13.2-15.2) H 11/20/18 17:17 Plt Count 190 K/mm3 (140-440) 11/20/18 17:17 Lymph % (Auto) 18.2 % (13.4-35.0) 11/20/18 17:17 [place] % (Auto) 6.0 % (0.0-7.3) 11/20/18 17:17 Eos % (Auto) 7.2 % (0.0-4.3) H 11/20/18 17:17 Baso % (Auto) 0.7 % (0.0-1.8) 11/20/18 17:17 Lymph # 1.3 K/mm3 (1.2-5.4) 11/20/18 17:17 [place] # 0.4 K/mm3 (0.0-0.8) 11/20/18 17:17 Eos # 0.5 K/mm3 (0.0-0.4) H 11/20/18 17:17 Baso # 0.0 K/mm3 (0.0-0.1) 11/20/18 17:17 Seg Neutrophils % 67.9 % (40.0-70.0) 11/20/18 17:17 Seg Neutrophils # 4.7 K/mm3 (1.8-7.7) 11/20/18 17:17 PT 13.6 Sec. (12.2-14.9) 11/20/18 17:17 INR 1.07 (0.87-1.13) 11/20/18 17:17 APTT 29.9 Sec. (24.2-36.6) 11/20/18 17:17 15.3 Sec. (15.1-19.6) 11/20/18 17:17 Sodium 138 mmol/L (137-145) 11/20/18 17:17 Potassium 4.6 mmol/L (3.6-5.0) 11/20/18 17:17 Chloride 107.6 mmol/L (98-107) H 11/20/18 17:17 Carbon Dioxide 17 mmol/L (22-30) L 11/20/18 17:17 18 mmol/L 11/20/18 17:17 BUN 47 mg/dL (9-20) H 11/20/18 17:17 7.4 mg/dL (0.8-1.5) H 11/20/18 17:17 Estimated GFR 9 ml/min 11/20/18 17:17 6 % 11/20/18 17:17 Glucose 130 mg/dL (75-100) H 11/20/18 17:17 POC Glucose 136 (70-105) H 11/20/18 17:37 Lactic Acid 1.10 mmol/L (0.7-2.0) 11/20/18 17:17 Calcium 9.4 mg/dL (8.4-10.2) 11/20/18 17:17 0.30 mg/dL (0.1-1.2) 11/20/18 17:17 AST 9 units/L (5-40) 11/20/18 17:17 ALT 6 units/L (7-56) L 11/20/18 17:17 60 units/L (35-129) 11/20/18 17:17 100 units/L (55-170) 11/20/18 17:17 CK-MB (CK-2) 4.9 ng/mL (0.0-4.0) H 11/20/18 17:17 CK-MB (CK-2) Rel Index 4.9 (0-4) H 11/20/18 17:17 0.072 ng/mL (0.00-0.029) H 11/22/18 00:59 7.0 g/dL (6.3-8.2) 11/20/18 17:17 3.9 g/dL (3.9-5) 11/20/18 17:17 1.3 % 11/20/18 17:17 Triglycerides 63 mg/dL (2-149) 11/20/18 17:17 Cholesterol 161 mg/dL (50-199) 11/20/18 17:17 104 mg/dL (50-130) 11/20/18 17:17 53 mg/dL (40-59) 11/20/18 17:17 3.03 % 11/20/18 17:17 TSH 2.960 mlU/mL (0.270-4.200) 11/20/18 Unknown Yellow (Yellow) 11/20/18 23:48 Clear (Clear) 11/20/18 23:48 5.0 (5.0-7.0) 11/20/18 23:48 Ur Specific [place] 1.012 (1.003-1.030) 11/20/18 23:48 30 mg/dl mg/dL (Negative) 11/20/18 23:48 50 mg/dL (Negative) 11/20/18 23:48 Neg mg/dL (Negative) 11/20/18 23:48 Neg (Negative) 11/20/18 23:48 Neg (Negative) 11/20/18 23:48 Neg (Negative) 11/20/18 23:48 < 2.0 mg/dL (<2.0) 11/20/18 23:48 Ur Leukocyte Esterase Neg (Negative) 11/20/18 23:48 < 1.0 /HPF (0.0-6.0) 11/20/18 23:48 3.0 /HPF (0.0-6.0) 11/20/18 23:48 U Epithel Cells (Auto) < 1.0 /HPF (0-13.0) 11/20/18 23:48 1+ /HPF (Negative) 11/20/18 23:48 Few /HPF 11/20/18 23:48 96.4 mg/dL (0.1-20.0) H 11/21/18 19:30 36 mmol/L 11/20/18 23:48 < 4 mg/dL (5-11.8) L 11/21/18 19:30 Salicylates < 0.3 mg/dL (2.8-20.0) L 11/20/18 17:17 Acetaminophen < 5.0 ug/mL (10.0-30.0) L 11/20/18 17:17 Plasma/Serum Alcohol < 0.01 % (0-0.07) 11/20/18 17:17 Active Medications - Current Medications Current Medications: Generic Name Dose Route Start Last Admin Trade Name Freq PRN Reason Stop Dose Admin Acetaminophen 650 mg 11/20/18 20:41 Tylenol PO Q4H PRN Pain, Mild (1-3) Albuterol 2.5 mg 11/20/18 20:41 Proventil IH Q3HRT PRN Shortness Of Breath Aspirin 325 mg 11/21/18 10:00 11/21/18 12:16 Aspirin PO 325 mg QDAY [facility] Administration Atorvastatin Calcium 40 mg 11/20/18 22:00 11/21/18 21:50 Lipitor PO Not Given QHS [facility] Bisacodyl 10 mg 11/20/18 20:41 Dulcolax [place] QDAY PRN Constipation Magnesium Hydroxide 30 ml 11/20/18 20:41 Milk Of Magnesia PO Q4H PRN Constipation Metoclopramide HCl 10 mg 11/20/18 20:41 Reglan PO Q6H PRN Nausea And Vomiting Ondansetron HCl 4 mg 11/20/18 20:41 Zofran IV Q8H PRN Nausea And Vomiting Promethazine HCl 25 mg 11/20/18 20:41 Phenergan LA Q6H PRN Nausea And Vomiting Sodium Chloride 10 ml 11/20/18 20:41 Sodium Chloride Flush Syringe 10 Ml IV PRN PRN LINE FLUSH
--- NOTE | 2018-11-22 11:24 | Magnetic Resonance Report ---
MRI BRAIN WITHOUT CONTRAST INDICATION / CLINICAL INFORMATION: Cerebrovascular accident with right-sided weakness and altered mental status. TECHNIQUE: Multiplanar, multisequence MR images of the brain were obtained. COMPARISON: Head CT 11/20/2018. FINDINGS: BRAIN / INTRACRANIAL CONTENTS: Age-related parenchymal volume loss is demonstrated. Dilatation of the cortical sulci and ventricular system is noted. These changes are greater than expected for the cayla ent's age of 68 years. Multiple remote small deep infarctions are identified. These are present withi n the billy left thalamus and bilateral gangliocapsular regions. There is evidence of remote cortical infarction involving the inferior surface of the left occipital lobe. Multiple remote microhemorrhage s are observed in a pattern consistent with hypertensive microhemorrhage. Periventricular and deep wh ite matter hyperintensities noted consistent with age-related microvascular ischemic changes. Dilated perivascular spaces are observed in a bilateral gangliocapsular distribution. There is no mass effec t. No evidence of recent intracranial hemorrhage or extra-axial fluid collection is seen. There is no indication of remote cortical infarction. Diffusion weighted scans are negative. There is no indicat ion of acute ischemic injury. The brainstem and cerebellum have an unremarkable appearance. CRANIOCERVICAL JUNCTION: No abnormalities are identified at the craniocervical junction. VASCULAR FLOW-VOIDS: Flow voids are present within the major intracranial vessels. There is marked di latation of the supraclinoid segment of the left internal carotid artery. This may be secondary to do lichoectasia versus fusiform aneurysm. ORBITS: The orbits have an unremarkable appearance. SINUSES / MASTOIDS: There is no indication of inflammatory disease in the paranasal sinuses or mastoi d air cells. IMPRESSION: 1. Evidence of multiple remote hypertensive microhemorrhages. 2. Evidence of multiple remote small deep infarctions. 3. Evidence of remote hemorrhagic infarction involving the left occipital lobe. 4. 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 5. No indication of acute infarction or recent hemorrhage is identified. Signer Name: Boom Gong MD Signed: 11/22/2018 11:20 AM Workstation Name: [id number]
[2018-11-22] MEDS: ASPIRIN PO SCH (11:38)
[2018-11-22 12:00] LABS: Albumin 4.1 g/dL (3.9-5); Calcium 9.6 mg/dL (8.4-10.2)
[2018-11-22] MEDS ORDERED: APRESOLINE IV PRN (12:26)
--- NOTE | 2018-11-22 12:42 | Progress Note ---
Assessment and Plan - Patient Problems (1) RUTH (acute kidney injury) Current Visit: No Status: Acute Plan to address problem: suspect acute pre-renal azotemia, UA shows no evidence of hematuria, only mild proteinuria. urine protein/cr ratio was only < 40mg/g. Renal US showed significant b/l echogenic kidneys consistent with medical renal disease, suspect underlying CKD. avoid nephrotoxins, NSAIDs, IV contrast. pt remains non- oliguric, currently without acute indication for renal replacement therapy, however if no significant renal recovery seen, will need preparation for future HD. (2) CVA (cerebral vascular accident) Current Visit: No Status: Acute Plan to address problem: initial CT head showed no acute findings, however multiple chronic appearing lacunar infarcts in the basal ganglia reported. (3) Encephalopathy Current Visit: No Status: Acute Plan to address problem: improving (4) Anemia in chronic illness Current Visit: Yes Status: Acute Plan to address problem: check iron store/ferritin. Hb at target. Subjective Date of service: 11/22/18 Principal diagnosis: RUTH on CKD Interval history: Patient awake, alert, denies n/v/d, SOB, CP, palpitations, dysuria, abd pain. Objective - Vital Signs Vital signs: Vital Signs - 12hr 11/22/18 11/22/18 11/22/18 00:42 00:44 01:00 Temperature 98.2 F Pulse Rate 77 77 Respiratory 18 Rate Blood Pressure 159/67 O2 Sat by Pulse 100 Oximetry 11/22/18 11/22/18 05:25 05:26 Temperature 98.6 F Pulse Rate 83 Respiratory 18 Rate Blood Pressure 163/92 O2 Sat by Pulse 99 Oximetry - General Appearance General appearance: well-developed, well-nourished, appears stated age EENT: ATNC, PERRL, mucous membranes moist Neck: no JVD Respiratory: Present: Clear to Ascultation Cardiology: regular, S1S2 Gastrointestinal: normoactive bowel sounds Integumentary: no rash, other (no edema ) Neurologic: no focal deficit, alert and oriented x3, strength 5/5, CN 3-12 intact Psychiatric: mood/affect appropriate, cooperative - Lab 11/20/18 17:17 11/22/18 11:04 Most recent lab results Calcium 9.6 mg/dL (8.4-10.2) 11/22/18 11:04 96.4 mg/dL (0.1-20.0) H 11/21/18 19:30 36 mmol/L 11/20/18 23:48 < 4 mg/dL (5-11.8) L 11/21/18 19:30 Medications & Allergies - Medications Allergies/Adverse Reactions: Allergies No Known Allergies Allergy (Unverified 11/20/18 16:31) Home Medications: Home Medications Medication Instructions Recorded Confirmed Last Taken Type No Known Home Medications [No 11/20/18 11/20/18 Unknown History Reported Home Medications] Active Medications: Generic Name Dose Route Start Last Admin Trade Name Freq PRN Reason Stop Dose Admin Acetaminophen 650 mg 11/20/18 20:41 Tylenol PO Q4H PRN Pain, Mild (1-3) Albuterol 2.5 mg 11/20/18 20:41 Proventil IH Q3HRT PRN Shortness Of Breath Aspirin 325 mg 11/21/18 10:00 11/22/18 11:38 Aspirin PO 325 mg QDAY [facility] Administration Atorvastatin Calcium 40 mg 11/20/18 22:00 11/21/18 21:50 Lipitor PO Not Given QHS [facility] Bisacodyl 10 mg 11/20/18 20:41 Dulcolax ND QDAY PRN Constipation Hydralazine HCl 10 mg 11/22/18 12:26 Apresoline IV Q4HR PRN Hypertension Hydralazine HCl 50 mg 11/22/18 14:00 Apresoline PO Q8HR [facility] Magnesium Hydroxide 30 ml 11/20/18 20:41 Milk Of Magnesia PO Q4H PRN Constipation Metoclopramide HCl 10 mg 11/20/18 20:41 Reglan PO Q6H PRN Nausea And Vomiting Ondansetron HCl 4 mg 11/20/18 20:41 Zofran IV Q8H PRN Nausea And Vomiting Promethazine HCl 25 mg 11/20/18 20:41 Phenergan ND Q6H PRN Nausea And Vomiting Sodium Chloride 10 ml 11/20/18 20:41 Sodium Chloride Flush Syringe 10 Ml IV PRN PRN LINE FLUSH
[2018-11-22] MEDS: APRESOLINE PO SCH ×2 (16:00→21:28)
--- NOTE | 2018-11-22 17:23 | Progress Note ---
Subjective Date of service: 11/22/18 Principal diagnosis: RUTH on CKD Interval history: i checked the report of the MRI and as well reviewed the study myself there are no acute strokes however multiple old strokes are noted the vascular changes are chronic and not acute the other finding I will review further patien can not get contrast due to renal disorder Objective - Vital Sign Vital Signs - 12hr 11/22/18 11/22/18 11/22/18 05:25 05:26 10:00 Temperature 98.6 F Pulse Rate 83 62 Pulse Rate [ Apical] Pulse Rate [ Left Radial] Pulse Rate [ Right Radial] Respiratory 18 Rate Blood Pressure 163/92 Blood Pressure [Right] O2 Sat by Pulse 99 Oximetry 11/22/18 11/22/18 11/22/18 11:30 12:00 16:00 Temperature 98.2 F Pulse Rate 82 62 Pulse Rate [ 62 Apical] Pulse Rate [ 62 Left Radial] Pulse Rate [ 62 Right Radial] Respiratory 18 18 Rate Blood Pressure 161/76 Blood Pressure 131/64 [Right] O2 Sat by Pulse Oximetry - Laboratory Findings CBC and BMP: 11/20/18 17:17 11/22/18 11:04 Abnormal Lab Findings: Abnormal Labs 11/20/18 11/20/18 11/20/18 17:17 17:17 17:17 RBC 3.24 L Hgb 10.2 L Hct 29.7 L RDW 16.7 H Eos % (Auto) 7.2 H Eos # 0.5 H Chloride 107.6 H Carbon Dioxide 17 L BUN 47 H Creatinine 7.4 H Glucose 130 H POC Glucose ALT 6 L CK-MB (CK-2) 4.9 H CK-MB (CK-2) Rel Index 4.9 H Troponin T 0.079 H Urine Creatinine Urine Total Protein Salicylates < 0.3 L Acetaminophen 11/20/18 11/20/18 11/20/18 17:17 17:37 23:48 RBC Hgb Hct RDW Eos % (Auto) Eos # Chloride Carbon Dioxide BUN Creatinine Glucose POC Glucose 136 H ALT CK-MB (CK-2) CK-MB (CK-2) Rel Index Troponin T Urine Creatinine 167.3 H Urine Total Protein Salicylates Acetaminophen < 5.0 L 11/21/18 11/21/18 11/22/18 19:30 19:36 00:59 RBC Hgb Hct RDW Eos % (Auto) Eos # Chloride Carbon Dioxide BUN Creatinine Glucose POC Glucose ALT CK-MB (CK-2) CK-MB (CK-2) Rel Index Troponin T 0.077 H 0.072 H Urine Creatinine 96.4 H Urine Total Protein < 4 L Salicylates Acetaminophen 11/22/18 11:04 RBC Hgb Hct RDW Eos % (Auto) Eos # Chloride 107.9 H Carbon Dioxide 19 L BUN 45 H Creatinine 7.1 H Glucose 110 H POC Glucose ALT CK-MB (CK-2) CK-MB (CK-2) Rel Index Troponin T Urine Creatinine Urine Total Protein Salicylates Acetaminophen
[2018-11-22] MEDS: REGLAN PO PRN (21:28)
[2018-11-22] MEDS: SODIUM CHLORIDE FLUSH SYRINGE 10 ML IV PRN (21:29)
[2018-11-23] MEDS: APRESOLINE PO SCH ×3 (05:19→21:11)
[2018-11-23 05:49] LABS: Hematocrit 28.5 % (35.5-45.6); Hemoglobin 9.6 gm/dl (11.8-15.2); Mean Corpuscular HGB Conc 34 % (32-34); Mean Corpuscular Volume 93 fl (84-94); Platelet Count 187 K/mm3 (140-440); Red Blood Count 3.05 M/mm3 (3.65-5.03); Red Cell Distribution Width 16.6 % (13.2-15.2)
[2018-11-23 06:11] LABS: Calcium 8.9 mg/dL (8.4-10.2)
[2018-11-23] MEDS: ASPIRIN PO SCH (10:30)
[2018-11-23] MEDS ORDERED: NACL 0.9% 100 ML IV PRN (11:00)
[2018-11-23] MEDS ORDERED: PROCRIT SUB-Q SCH (11:00)
--- NOTE | 2018-11-23 11:07 | Progress Note ---
Assessment and Plan - Patient Problems (1) RUTH (acute kidney injury) Current Visit: No Status: Acute Plan to address problem: suspect acute pre-renal azotemia, UA shows no evidence of hematuria, only mild proteinuria. urine protein/cr ratio was only < 40mg/g. Renal US showed significant b/l echogenic kidneys consistent with medical renal disease, suspect underlying CKD. avoid nephrotoxins, NSAIDs, IV contrast. pt remains non- oliguric, however now developing worsening metabolic acidosis and mild uremic symptoms. discussed indication, benefits and risks of HD, patient understands and agrees to temporary HD. IR consulted for vascath placement. will arrange for HD today, tomorrow AM for correction of metabolic acidosis and solute clearance. (2) CVA (cerebral vascular accident) Current Visit: No Status: Acute Plan to address problem: initial CT head showed no acute findings, however multiple chronic appearing lacunar infarcts in the basal ganglia reported. (3) Encephalopathy Current Visit: No Status: Acute Plan to address problem: improving (4) Anemia in chronic illness Current Visit: Yes Status: Acute Plan to address problem: start EPO Subjective Date of service: 11/23/18 Principal diagnosis: RUTH on CKD Interval history: Patient awake, alert,denies SOB, CP, palpitations, dysuria, abd pain. however reporting generalized weakness, nausea Objective - Vital Signs Vital signs: Vital Signs - 12hr 11/23/18 11/23/18 11/23/18 01:07 01:08 04:00 Temperature 98.2 F Pulse Rate 99 H 45 L Respiratory 18 Rate Blood Pressure 151/70 O2 Sat by Pulse 100 Oximetry 11/23/18 11/23/18 11/23/18 05:03 05:05 05:19 Temperature 98.7 F Pulse Rate 88 45 L Respiratory 18 Rate Blood Pressure 144/80 158/82 O2 Sat by Pulse 100 Oximetry - General Appearance General appearance: well-developed, well-nourished, appears stated age EENT: ATNC, PERRL, mucous membranes moist Neck: no JVD Respiratory: Present: Clear to Ascultation Cardiology: regular, S1S2 Gastrointestinal: normoactive bowel sounds Integumentary: no rash, other (no edema ) Neurologic: no focal deficit, alert and oriented x3, strength 5/5, CN 3-12 intact Psychiatric: mood/affect appropriate, cooperative - Lab 11/23/18 04:57 11/23/18 04:57 Most recent lab results Calcium 8.9 mg/dL (8.4-10.2) 11/23/18 04:57 96.4 mg/dL (0.1-20.0) H 11/21/18 19:30 36 mmol/L 11/20/18 23:48 < 4 mg/dL (5-11.8) L 11/21/18 19:30 Medications & Allergies - Medications Allergies/Adverse Reactions: Allergies No Known Allergies Allergy (Unverified 11/20/18 16:31) Home Medications: Home Medications Medication Instructions Recorded Confirmed Last Taken Type No Known Home Medications [No 11/20/18 11/20/18 Unknown History Reported Home Medications] Active Medications: Generic Name Dose Route Start Last Admin Trade Name Freq PRN Reason Stop Dose Admin Acetaminophen 650 mg 11/20/18 20:41 Tylenol PO Q4H PRN Pain, Mild (1-3) Albuterol 2.5 mg 11/20/18 20:41 Proventil IH Q3HRT PRN Shortness Of Breath Aspirin 325 mg 11/21/18 10:00 11/23/18 10:30 Aspirin PO 325 mg QDAY [facility] Administration Atorvastatin Calcium 40 mg 11/20/18 22:00 11/22/18 21:28 Lipitor PO 40 mg QHS [facility] Administration Bisacodyl 10 mg 11/20/18 20:41 Dulcolax [place] QDAY PRN Constipation Epoetin Blayne 10,000 unit 11/23/18 11:00 Procrit SUB-Q NINO BEC[facility] Hydralazine HCl 10 mg 11/22/18 12:26 Apresoline IV Q4HR PRN Hypertension Hydralazine HCl 50 mg 11/22/18 14:00 11/23/18 05:19 Apresoline PO 50 mg Q8HR [facility] Administration Sodium Chloride 100 mls @ 999 mls/hr 11/23/18 11:00 Nacl 0.9% IV NINO PRN Hypotension Magnesium Hydroxide 30 ml 11/20/18 20:41 Milk Of Magnesia PO Q4H PRN Constipation Metoclopramide HCl 10 mg 11/20/18 20:41 11/22/18 21:28 Reglan PO 10 mg Q6H PRN Administration Nausea And Vomiting Ondansetron HCl 4 mg 11/20/18 20:41 Zofran IV Q8H PRN Nausea And Vomiting Promethazine HCl 25 mg 11/20/18 20:41 Phenergan [place] Q6H PRN Nausea And Vomiting Sodium Chloride 10 ml 11/20/18 20:41 11/22/18 21:29 Sodium Chloride Flush Syringe 10 Ml IV 10 ml PRN PRN Administration LINE FLUSH
--- NOTE | 2018-11-23 11:57 | Progress Note ---
Subjective Date of service: 11/23/18 Principal diagnosis: RUTH on CKD Interval history: see prior notye on the CY and MRI review repeat opinion recommend no contrast MRI ie renal problems Objective - Vital Sign Vital Signs - 12hr 11/23/18 11/23/18 11/23/18 01:07 01:08 04:00 Temperature 98.2 F Pulse Rate 99 H 45 L Respiratory 18 Rate Blood Pressure 151/70 O2 Sat by Pulse 100 Oximetry 11/23/18 11/23/18 11/23/18 05:03 05:05 05:19 Temperature 98.7 F Pulse Rate 88 45 L Respiratory 18 Rate Blood Pressure 144/80 158/82 O2 Sat by Pulse 100 Oximetry 11/23/18 09:42 Temperature 98.7 F Pulse Rate 93 H Respiratory 16 Rate Blood Pressure 140/83 O2 Sat by Pulse 100 Oximetry - Laboratory Findings CBC and BMP: 11/23/18 04:57 11/23/18 04:57 Abnormal Lab Findings: Abnormal Labs 11/20/18 11/20/18 11/20/18 17:17 17:17 17:17 RBC 3.24 L Hgb 10.2 L Hct 29.7 L RDW 16.7 H Eos % (Auto) 7.2 H Eos # 0.5 H Chloride 107.6 H Carbon Dioxide 17 L BUN 47 H Creatinine 7.4 H Glucose 130 H POC Glucose ALT 6 L CK-MB (CK-2) 4.9 H CK-MB (CK-2) Rel Index 4.9 H Troponin T 0.079 H Urine Creatinine Urine Total Protein Salicylates < 0.3 L Acetaminophen 11/20/18 11/20/18 11/20/18 17:17 17:37 23:48 RBC Hgb Hct RDW Eos % (Auto) Eos # Chloride Carbon Dioxide BUN Creatinine Glucose POC Glucose 136 H ALT CK-MB (CK-2) CK-MB (CK-2) Rel Index Troponin T Urine Creatinine 167.3 H Urine Total Protein Salicylates Acetaminophen < 5.0 L 11/21/18 11/21/18 11/22/18 19:30 19:36 00:59 RBC Hgb Hct RDW Eos % (Auto) Eos # Chloride Carbon Dioxide BUN Creatinine Glucose POC Glucose ALT CK-MB (CK-2) CK-MB (CK-2) Rel Index Troponin T 0.077 H 0.072 H Urine Creatinine 96.4 H Urine Total Protein < 4 L Salicylates Acetaminophen 11/22/18 11/23/18 11/23/18 11:04 04:57 04:57 RBC 3.05 L Hgb 9.6 L Hct 28.5 L RDW 16.6 H Eos % (Auto) Eos # Chloride 107.9 H 108.1 H Carbon Dioxide 19 L 16 L BUN 45 H 46 H Creatinine 7.1 H 6.7 H Glucose 110 H 102 H POC Glucose ALT CK-MB (CK-2) CK-MB (CK-2) Rel Index Troponin T Urine Creatinine Urine Total Protein Salicylates Acetaminophen
[2018-11-23 13:13] LABS: Hepatitis B Surface Antigen Non-Reactive (Negative); Hepatitis C Virus Antibody Non-Reactive (NonReactive)
[2018-11-23] MEDS ORDERED: NACL 0.9% 250ML 250 ML ONE (14:38)
[2018-11-23] MEDS ORDERED: HEPARIN/NS 5000 UNIT/500ML(CATH LAB) 500 ML IR ONE (14:38)
[2018-11-23] MEDS: SUBLIMAZE ONE ×2 (14:58→15:03)
[2018-11-23] MEDS: VERSED ONE ×2 (14:59→15:03)
[2018-11-23] MEDS: XYLOCAINE 1%/ EPI 1:100,000 INFILTRATI ONE ×2 (14:59→15:04)
[2018-11-23] MEDS: HEPARIN 10,000 UNITS/10 ML ONE ×4 (15:04→15:16)
--- NOTE | 2018-11-23 15:57 | Progress Note ---
Assessment and Plan Assessment and plan: Patient is 68 yo man without chronic known medical problems who presents to [facility] ED with AMS. As per , the patient had confusion, difficulty speaking, and Left sided weakness. EMS notified,and upon arrival the patient was found to have a neurologic deficit. A code stroke was called and the patient was transported to [facility]. Pt seen and evaluated in ED and found to have symptoms consistent with CVA. Teleneurology consulted. Pt deemed not to be a candidate for TPA. Pt admitted to telemetry and initiated on CVA protocol. Pt also found to have RUTH and Nephrology team consulted in ED. No prior admission for review. No medication listed for reconciliation at time of admission. No further history obtainable. Pt is confused at time of exam, but has positive gag reflex, and is able to protect his airway. MRI: 1. Evidence of multiple remote hypertensive microhemorrhages. 2. Evidence of multiple remote small deep infarctions. 3. Evidence of remote hemorrhagic infarction involving the left occipital lobe. 4. 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 5. No indication of acute infarction or recent hemorrhage is identified. -CVA (cerebral vascular accident) CT Head,Neuro check, PT/OT/Speech therapy, Neuro Check, Seizure precautions, lipid panel, statin therapy, antiplatelet therapy, Echo, Carotid Doppler, neurology consulted. workup including MRI-No acute stroke but multiple remote hypertensive microhemorrhages, and remote hemorrhagic Infarction involving the left occipital lobe Neurology is of opinion that this is metabolic in nature ASA and Statin - RUTH (acute kidney injury) secondary to vasomotor nephropathy+atn nephrology consulted, urine electrolytes, monitor uop q shift, renal ultrasound vascular consulted and patient to get vascath then dialysis today -Hypertension Continue management. -Metabolic Acidosis likely progression of disease. -Acute metabolic Encephalopathy CT Head, neuro check, seizure precautions, thyroid panel -ND type 2 repeat, suspect related to Cr of 7.4 -DVT prophylaxis SCD to BLE while in bed, Discussed with Vascular and Methods And Procedures Analyst. History Interval history: Patient seen and examined. No complaints at this time. Hospitalist Physical - Physical exam Narrative exam: Gen: WDWN, NAD, Awake, Alert, Orientated x 3 HEENT: NCAT, EOMI, PERRL, OP Clear Neck: supple, no adenopathy, no thyromegaly, no JVD CVS/Heart: RRR, normal S1S2, pulses present bilaterally Chest/Lungs: CTA B, Symmetrical chest expansion, good air entry bilaterally GI/Abdomen: soft, NTND, good bowel sounds, no guarding or rebound /Bladder: no suprapubic tenderness, no CVA or paraspinal tenderness Extermity/Skin: no c/c/e, no obvious rash MSK: FROM x 4 Neuro: CN 2-12 grossly intact, no new focal deficits Psych: calm - Constitutional Vitals: Temp Pulse Resp BP Pulse Ox 98.7 F 93 H 16 140/83 100 11/23/18 09:42 11/23/18 12:00 11/23/18 09:42 11/23/18 09:42 11/23/18 09:42 General appearance: Present: mild distress Results - Labs CBC & Chem 7: 11/23/18 04:57 11/23/18 04:57 Labs: Laboratory Last Values WBC 5.9 K/mm3 (4.5-11.0) 11/23/18 04:57 RBC 3.05 M/mm3 (3.65-5.03) L 11/23/18 04:57 Hgb 9.6 gm/dl (11.8-15.2) L 11/23/18 04:57 Hct 28.5 % (35.5-45.6) L 11/23/18 04:57 MCV 93 fl (84-94) 11/23/18 04:57 MCH 32 pg (28-32) 11/23/18 04:57 MCHC 34 % (32-34) 11/23/18 04:57 RDW 16.6 % (13.2-15.2) H 11/23/18 04:57 Plt Count 187 K/mm3 (140-440) 11/23/18 04:57 Lymph % (Auto) 18.2 % (13.4-35.0) 11/20/18 17:17 [place] % (Auto) 6.0 % (0.0-7.3) 11/20/18 17:17 Eos % (Auto) 7.2 % (0.0-4.3) H 11/20/18 17:17 Baso % (Auto) 0.7 % (0.0-1.8) 11/20/18 17:17 Lymph # 1.3 K/mm3 (1.2-5.4) 11/20/18 17:17 [place] # 0.4 K/mm3 (0.0-0.8) 11/20/18 17:17 Eos # 0.5 K/mm3 (0.0-0.4) H 11/20/18 17:17 Baso # 0.0 K/mm3 (0.0-0.1) 11/20/18 17:17 Seg Neutrophils % 67.9 % (40.0-70.0) 11/20/18 17:17 Seg Neutrophils # 4.7 K/mm3 (1.8-7.7) 11/20/18 17:17 PT 13.6 Sec. (12.2-14.9) 11/20/18 17:17 INR 1.07 (0.87-1.13) 11/20/18 17:17 APTT 29.9 Sec. (24.2-36.6) 11/20/18 17:17 15.3 Sec. (15.1-19.6) 11/20/18 17:17 Sodium 139 mmol/L (137-145) 11/23/18 04:57 Potassium 4.2 mmol/L (3.6-5.0) 11/23/18 04:57 Chloride 108.1 mmol/L (98-107) H 11/23/18 04:57 Carbon Dioxide 16 mmol/L (22-30) L 11/23/18 04:57 19 mmol/L 11/23/18 04:57 BUN 46 mg/dL (9-20) H 11/23/18 04:57 6.7 mg/dL (0.8-1.5) H 11/23/18 04:57 Estimated GFR 10 ml/min 11/23/18 04:57 7 % 11/23/18 04:57 Glucose 102 mg/dL (75-100) H 11/23/18 04:57 POC Glucose 136 (70-105) H 11/20/18 17:37 Lactic Acid 1.10 mmol/L (0.7-2.0) 11/20/18 17:17 Calcium 8.9 mg/dL (8.4-10.2) 11/23/18 04:57 0.30 mg/dL (0.1-1.2) 11/22/18 11:04 AST 12 units/L (5-40) 11/22/18 11:04 ALT 7 units/L (7-56) 11/22/18 11:04 63 units/L (35-129) 11/22/18 11:04 100 units/L (55-170) 11/20/18 17:17 CK-MB (CK-2) 4.9 ng/mL (0.0-4.0) H 11/20/18 17:17 CK-MB (CK-2) Rel Index 4.9 (0-4) H 11/20/18 17:17 0.072 ng/mL (0.00-0.029) H 11/22/18 00:59 7.2 g/dL (6.3-8.2) 11/22/18 11:04 4.1 g/dL (3.9-5) 11/22/18 11:04 1.3 % 11/22/18 11:04 Triglycerides 63 mg/dL (2-149) 11/20/18 17:17 Cholesterol 161 mg/dL (50-199) 11/20/18 17:17 104 mg/dL (50-130) 11/20/18 17:17 53 mg/dL (40-59) 11/20/18 17:17 3.03 % 11/20/18 17:17 TSH 2.960 mlU/mL (0.270-4.200) 11/20/18 Unknown Yellow (Yellow) 11/20/18 23:48 Clear (Clear) 11/20/18 23:48 5.0 (5.0-7.0) 11/20/18 23:48 Ur Specific [place] 1.012 (1.003-1.030) 11/20/18 23:48 30 mg/dl mg/dL (Negative) 11/20/18 23:48 50 mg/dL (Negative) 11/20/18 23:48 Neg mg/dL (Negative) 11/20/18 23:48 Neg (Negative) 11/20/18 23:48 Neg (Negative) 11/20/18 23:48 Neg (Negative) 11/20/18 23:48 < 2.0 mg/dL (<2.0) 11/20/18 23:48 Ur Leukocyte Esterase Neg (Negative) 11/20/18 23:48 < 1.0 /HPF (0.0-6.0) 11/20/18 23:48 3.0 /HPF (0.0-6.0) 11/20/18 23:48 U Epithel Cells (Auto) < 1.0 /HPF (0-13.0) 11/20/18 23:48 1+ /HPF (Negative) 11/20/18 23:48 Few /HPF 11/20/18 23:48 96.4 mg/dL (0.1-20.0) H 11/21/18 19:30 36 mmol/L 11/20/18 23:48 < 4 mg/dL (5-11.8) L 11/21/18 19:30 Salicylates < 0.3 mg/dL (2.8-20.0) L 11/20/18 17:17 Acetaminophen < 5.0 ug/mL (10.0-30.0) L 11/20/18 17:17 Plasma/Serum Alcohol < 0.01 % (0-0.07) 11/20/18 17:17 Hepatitis A IgM Ab Non-reactive (NonReactive) 11/23/18 11:24 Hep Bs Antigen Non-reactive (Negative) 11/23/18 11:24 Hep B Core IgM Ab Non-reactive (NonReactive) 11/23/18 11:24 Non-reactive (NonReactive) 11/23/18 11:24 Active Medications - Current Medications Current Medications: Generic Name Dose Route Start Last Admin Trade Name Freq PRN Reason Stop Dose Admin Acetaminophen 650 mg 11/20/18 20:41 Tylenol PO Q4H PRN Pain, Mild (1-3) Albuterol 2.5 mg 11/20/18 20:41 Proventil IH Q3HRT PRN Shortness Of Breath Aspirin 325 mg 11/21/18 10:00 11/23/18 10:30 Aspirin PO 325 mg QDAY BECKIE Administration Atorvastatin Calcium 40 mg 11/20/18 22:00 11/22/18 21:28 Lipitor PO 40 mg QHS BECKIE Administration Bisacodyl 10 mg 11/20/18 20:41 Dulcolax AL QDAY PRN Constipation Epoetin Blayne 10,000 unit 11/23/18 11:00 Procrit SUB-Q NINO BECKIE Hydralazine HCl 10 mg 11/22/18 12:26 Apresoline IV Q4HR PRN Hypertension Hydralazine HCl 50 mg 11/22/18 14:00 11/23/18 05:19 Apresoline PO 50 mg Q8HR BECKIE Administration Sodium Chloride 100 mls @ 999 mls/hr 11/23/18 11:00 Nacl 0.9% IV NINO PRN Hypotension Magnesium Hydroxide 30 ml 11/20/18 20:41 Milk Of Magnesia PO Q4H PRN Constipation Metoclopramide HCl 10 mg 11/20/18 20:41 11/22/18 21:28 Reglan PO 10 mg Q6H PRN Administration Nausea And Vomiting Ondansetron HCl 4 mg 11/20/18 20:41 Zofran IV Q8H PRN Nausea And Vomiting Promethazine HCl 25 mg 11/20/18 20:41 Phenergan AL Q6H PRN Nausea And Vomiting Sodium Chloride 10 ml 11/20/18 20:41 11/22/18 21:29 Sodium Chloride Flush Syringe 10 Ml IV 10 ml PRN PRN Administration LINE FLUSH
--- NOTE | 2018-11-23 16:36 | Consultation ---
History of Present Illness - Reason for Consult Consult date: 11/23/18 Vas-Cath placement Requesting physician: TENZIN BENITEZ - History of Present Illness The patient is a 68-year-old male who presented to the emergency department with an acute CVA and renal failure. It is felt that his renal failure is a result of prerenal azotemia and that he will likely require hemodialysis for short period of time. His neurologic symptoms have resolved and he is now in need of a Vas-Cath for treatment of his renal failure. He has no other complaints at this time. Past History Past Medical History: No medical history, other (reviewed) Past Surgical History: No surgical history, Other (reviewed) Social history: , lives with family. denies: smoking, alcohol abuse, prescription drug abuse Family history: no significant family history (reviewed) Medications and Allergies Allergies Allergy/AdvReac Type Severity Reaction Status Date / Time No Known Allergies Allergy Unverified 11/20/18 16:31 Home Medications Medication Instructions Recorded Confirmed Last Taken Type No Known Home Medications [No 11/20/18 11/20/18 Unknown History Reported Home Medications] Active Meds: Active Medications Acetaminophen (Tylenol) 650 mg PO Q4H PRN PRN Reason: Pain, Mild (1-3) Albuterol (Proventil) 2.5 mg IH Q3HRT PRN PRN Reason: Shortness Of Breath Aspirin (Aspirin) 325 mg PO QDAY [facility] Last Admin: 11/23/18 10:30 Dose: 325 mg Documented by: Atorvastatin Calcium (Lipitor) 40 mg PO QHS [facility] Last Admin: 11/22/18 21:28 Dose: 40 mg Documented by: Bisacodyl (Dulcolax) 10 mg OK QDAY PRN PRN Reason: Constipation Epoetin Blayne (Procrit) 10,000 unit SUB-Q NINO [facility] Hydralazine HCl (Apresoline) 10 mg IV Q4HR PRN PRN Reason: Hypertension Hydralazine HCl (Apresoline) 50 mg PO Q8HR [facility] Last Admin: 11/23/18 05:19 Dose: 50 mg Documented by: Sodium Chloride (Nacl 0.9%) 100 mls @ 999 mls/hr IV NINO PRN PRN Reason: Hypotension Magnesium Hydroxide (Milk Of Magnesia) 30 ml PO Q4H PRN PRN Reason: Constipation Metoclopramide HCl (Reglan) 10 mg PO Q6H PRN PRN Reason: Nausea And Vomiting Last Admin: 11/22/18 21:28 Dose: 10 mg Documented by: Ondansetron HCl (Zofran) 4 mg IV Q8H PRN PRN Reason: Nausea And Vomiting Promethazine HCl (Phenergan) 25 mg OK Q6H PRN PRN Reason: Nausea And Vomiting Sodium Chloride (Sodium Chloride Flush Syringe 10 Ml) 10 ml IV PRN PRN PRN Reason: LINE FLUSH Last Admin: 11/22/18 21:29 Dose: 10 ml Documented by: Exam - Constitutional Vitals: Temp Pulse Resp BP Pulse Ox 98.7 F 93 H 16 140/83 100 11/23/18 09:42 11/23/18 12:00 11/23/18 09:42 11/23/18 09:42 11/23/18 09:42 General appearance: Present: no acute distress - EENT Eyes: Present: PERRL - Neck Neck: Present: supple - Respiratory Respiratory effort: normal - Cardiovascular Rhythm: regular - Extremities Extremities: no ischemia - Abdominal General gastrointestinal: Present: soft, non-tender - Psychiatric Psychiatric: appropriate mood/affect Results - Labs CBC & Chem 7: 11/23/18 04:57 11/23/18 04:57 Labs: Abnormal lab results 11/23/18 11/23/18 Range/Units 04:57 04:57 RBC 3.05 L (3.65-5.03) M/mm3 Hgb 9.6 L (11.8-15.2) gm/dl Hct 28.5 L (35.5-45.6) % RDW 16.6 H (13.2-15.2) % Chloride 108.1 H (98-107) mmol/L Carbon Dioxide 16 L (22-30) mmol/L BUN 46 H (9-20) mg/dL Creatinine 6.7 H (0.8-1.5) mg/dL Glucose 102 H (75-100) mg/dL Assessment and Plan 68-year-old male with renal failure believed to be secondary to prerenal azotemia in need of short-term hemodialysis. He needs a Vas-Cath for short-term dialysis. As discussed the risks, benefits, and alternative procedures for Vas- Cath placement. Will place a Vas-Cath today.
--- NOTE | 2018-11-23 16:42 | Operative Report ---
Operative Report Operative Report: Date of Procedure: 11/23/2018 Pre-operative Diagnosis: Renal Failure Post-operative Diagnosis: Same Procedure(s): 1. Ultrasound-Guided Access Right Internal Jugular Vein 2. Placement of 16 Cm Pre-Curved Vas-Cath 3. Radiologic Supervision with Interpretation Surgeon: Walter Parmar M.D. Promotion Writer: None Anesthesia: Local and IV sedation EBL: Minimal Counts: Correct Complications: None Condition: Stable Findings: Successful placement of right internal jugular Vas-Cath Specimen: None Indication: The patient is a 68-year-old male with history of renal failure who is in need of a Vas-Cath for temporary dialysis access. He has been given the risks, benefits, and alternative procedures and has consented to the procedure. Description of Procedure: The patient was brought to the hatchery laborer and laid in supine position. After timeout was performed he was sedated and his right neck and chest were prepped and draped in normal sterile fashion. Ultrasound was used to identify the right internal jugular vein and confirm patency. Once pain was confirmed overlying skin and soft tissue was anesthetized with lidocaine. A micropuncture needle was used ultrasound guidance and of the right internal jugular vein and a 0.018 wire was advanced into the inferior vena cava under fluoroscopy. The needle was removed and the micropuncture sheath was advanced over the wire by Seldinger technique. The inner dilator and wire were removed and a 0.035 J-wire was advanced into the inferior vena cava. The tract was serially dilated and the Vas-Cath was placed by Seldinger technique. Both ports were aspirated and flushed and primed with the appropriate amount of heparin. The catheter was s ecured in place with a 2-0 Ethilon in interrupted fashion. The catheter was then dressed with a sterile dressing. The final fluoroscopy demonstrated no evidence of pneumothorax and the tip of the catheter was in the right atrium. The patient tolerated the procedure well and was transported to the dialysis unit in stable condition.
[2018-11-23] MEDS ORDERED: NACL 0.9 (PRIMING MACHINE ONLY DIALYSIS) MC ONE (18:02)
[2018-11-23] MEDS: REGLAN PO PRN (21:12)
[2018-11-23] MEDS: SODIUM CHLORIDE FLUSH SYRINGE 10 ML IV PRN (21:12)
[2018-11-24] MEDS: APRESOLINE PO SCH ×3 (05:29→21:28)
--- NOTE | 2018-11-24 05:47 | Consultation ---
HISTORY OF PRESENT ILLNESS: This is a 68-year-old black ____ that presents to the Emergency Room of [facility] on 11/20/2018. On presentation to the Emergency Room, the patient initially complained of neurological problems with confusion, periods of disorientation, and alteration in mental status and left-sided weakness. The patient was reportedly hypotensive when the patient presented with a blood pressure of 90/____ in the field. Accu-Cheks were also obtained. The patient has a prior history of stroke and also from my understanding, had had problems with hypertension, which was poorly managed and the patient stated to me that they thought that they were developing kidney failure. When the patient initially was evaluated in the Emergency Department, the patient was alert, may have been having TIAs, toxic encephalopathy, and also had a creatinine, which is 7.6. The patient's examination was not compatible with large vessel occlusion. Initial creatinine was 7.4, hematocrit was 29.7, and the CT scan obtained in the ED showed evidence of a lacunar infarct, bilateral in the billy on the right side, also deep white matter infarcts, predominantly on the right and left side adjacent to the frontal horns of the anterior ventricle, the deep white matter of both occipital lobes, also the medial putamen on the left side, and also evidence of diffuse white matter disease over the hemispheres with primarily on inspection of the CT of strokes within the billy, which would be associated with the patient's symptoms of dizziness, as well the patient does also have moderate atrophy. Examination reveals the patient to be very confused, difficult to obtain history from, not terribly cooperative in terms of explaining the basis of symptoms. The patient is very slow to respond to questions, not very oriented, and somewhat confused when I speak to them. I did have the opportunity to review over the MRI scan. I do not see any marked abnormalities, except the chronic white matter disease, I do not see any acute strokes. There are large areas of loss of the deep white matter in the right and left cerebral hemisphere and the pontine lesions are quite noticeable and large in diameter, especially in the right mid billy, which would be certainly responsible for the patient's leg weakness. I otherwise see no other abnormalities that I would comment on, although from reviewing the report of the radiologist indicated that there is an enlargement of the internal carotid. I do not appreciate this so much myself and feel that this is not really worth pursuing with any imaging studies. It simply looks like an ectatic vessel from my direct review and certainly, I do not think the patient could have contrast. I believe we are dealing here with the pattern of acute stroke, cerebral atrophy, also multiple old strokes superimposed on a metabolic encephalopathy. JOB# [id number] GILL/VINAY
[2018-11-24] MEDS: ASPIRIN PO SCH (09:43)
[2018-11-24 10:16] LABS: Calcium 8.9 mg/dL (8.4-10.2)
[2018-11-24] MEDS ORDERED: ROCALTROL PO SCH (12:00)
[2018-11-24] MEDS ORDERED: NACL 0.9% 100 ML IV PRN (12:47)
--- NOTE | 2018-11-24 13:41 | Discharge Summary ---
Providers - Providers Date of Admission: 11/20/18 20:41 Attending physician: JACKSON DAN MD 11/20/18 Consult to Physician [CONS] Stat Comment: Consulting Provider: LEANN OAKES Physician Instructions: Reason For Exam: suspected stroke 11/20/18 18:12 Consult to Physician [CONS] Urgent Comment: Consulting Provider: TENZIN BENITEZ Physician Instructions: Reason For Exam: arf 11/20/18 20:41 Occupational Therapy Evaluate and Treat [CONS] Routine Comment: Reason For Exam: Neuro deficits Physical Therapy Evaluation and Treat [CONS] Routine Comment: Reason For Exam: Neuro deficits 11/21/18 07:52 Consult to Physician [CONS] Routine Comment: Consulting Provider: MIKEL BARRAZA Physician Instructions: Reason For Exam: cva 11/23/18 10:44 Consult to Interventional Radiology [CONS] Routine Consulting Provider: REJI BENITEZ Reason For Exam: vascath placement for initiation of HD Place consult to:: Dr. Benitez Notified:: Nelda FITZPATRICK Phone number called:: Was contact made?: Yes If yes, spoke with:: Richard-office Time called:: 11:22 11/23/18 10:57 Consult to Case Management [CONS] Routine Services Needed at Discharge: Spa Director/Finance Notified:: case management Additional Physician Instructions: outpatient dialysis 11/24/18 08:00 Consult to Physician [CONS] Stat Comment: Consulting Provider: RAMILA GAO Physician Instructions: PATIENT HAD 18 BEATS V-TACH Reason For Exam: ABNORMAL RHYTHMS Primary care physician: GENERATOR SWITCHBOARD OPERATOR Hospitalization Reason for admission: ams Condition: Stable Hospital course: Patient is 68 yo man without chronic known medical problems who presents to [facility] ED with AMS. As per , the patient had confusion, difficulty speaking, and Left sided weakness. EMS notified,and upon arrival the patient was found to have a neurologic deficit. A code stroke was called and the patient was transported to [facility]. Pt seen and evaluated in ED and found to have symptoms consistent with CVA. Teleneurology consulted. Pt deemed not to be a candidate for TPA. Pt admitted to telemetry and initiated on CVA protocol. Pt also found to have RUTH and Nephrology team consulted in ED. No prior admission for review. No medication listed for reconciliation at time of admission. No further history obtainable. Pt is confused at time of exam, but has positive gag reflex, and is able to protect his airway. MRI: 1. Evidence of multiple remote hypertensive microhemorrhages. 2. Evidence of multiple remote small deep infarctions. 3. Evidence of remote hemorrhagic infarction involving the left occipital lobe. 4. 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 5. No indication of acute infarction or recent hemorrhage is identified. Acute metabolic encephalopathy secondary to azotemia CVA (cerebral vascular accident) ruled out workup including MRI-No acute stroke but multiple remote hypertensive microhemorrhages, and remote hemorrhagic Infarction involving the left occipital lobe Neurology is of opinion that this is metabolic in nature ASA and Statin - RUTH (acute kidney injury) secondary to vasomotor nephropathy+atn Patient some temporally dialysis and is to follow with nephrology outpatient, vascath discontinued per Nephrology request -Hypertension -Metabolic Acidosis likely progression of disease. -TN type 2 r Disposition: DC-01 TO HOME OR SELFCARE Time spent for discharge: 35 mins Core Measure Documentation - Palliative Care Palliative Care/ Comfort Measures: Not Applicable - Core Measures Any of the following diagnoses?: none Exam - Physical Exam Narrative exam: Gen: WDWN, NAD, Awake, Alert, Orientated x 3 HEENT: NCAT, EOMI, PERRL, OP Clear Neck: supple, no adenopathy, no thyromegaly, no JVD CVS/Heart: RRR, normal S1S2, pulses present bilaterally Chest/Lungs: CTA B, Symmetrical chest expansion, good air entry bilaterally GI/Abdomen: soft, NTND, good bowel sounds, no guarding or rebound /Bladder: no suprapubic tenderness, no CVA or paraspinal tenderness Extermity/Skin: no c/c/e, no obvious rash MSK: FROM x 4 Neuro: CN 2-12 grossly intact, no new focal deficits Psych: calm - Constitutional Vitals: Temp Pulse Resp BP Pulse Ox 99.1 F 95 H 18 121/78 98 11/24/18 03:30 11/24/18 07:19 11/24/18 03:30 11/24/18 05:29 11/24/18 04:38 Plan Activity: advance as tolerated, fall precautions Diet: renal Special Instructions: record daily weights, record daily BP diary Follow up with: TENZIN BENITEZ MD [Staff Physician] - 7 Days PRIMARY CAREMD [Primary Care Provider] - 7 Days GROVER LOUIE MD [Staff Physician] - 7 Days MIKEL BARRAZA MD [Staff Physician] - 7 Days Forms: Discharge Signature Page Prescriptions: AtorvaSTATin [Lipitor] 40 mg PO QHS #30 tablet hydrALAZINE [Apresoline TAB] 50 mg PO Q8HR #120 tablet Aspirin 325 mg PO QDAY #30 tablet
--- NOTE | 2018-11-24 15:32 | Progress Note ---
Assessment and Plan - Patient Problems (1) RUTH (acute kidney injury) Current Visit: No Status: Acute Plan to address problem: suspect acute pre-renal azotemia, UA shows no evidence of hematuria, only mild proteinuria. urine protein/cr ratio was only < 40mg/g. Renal US showed significant b/l echogenic kidneys consistent with medical renal disease, suspect underlying CKD. avoid nephrotoxins, NSAIDs, IV contrast. pt remains non- oliguric, however now developing worsening metabolic acidosis and mild uremic symptoms. discussed indication, benefits and risks of HD, patient understands and agreed to temporary HD. First HD yesterday well tolerated, met acidosis corrected. 2nd HD today. pt is non-oliguric at present. Pt would be cleared for discharge from renal d stand point after HD today, with close outpatient RUTH/CKD follow up with me in 1 week. (2) CVA (cerebral vascular accident) Current Visit: No Status: Acute Plan to address problem: initial CT head showed no acute findings, however multiple chronic appearing lacunar infarcts in the basal ganglia reported. (3) Encephalopathy Current Visit: No Status: Acute Plan to address problem: improving (4) Anemia in chronic illness Current Visit: Yes Status: Acute Subjective Date of service: 11/24/18 Principal diagnosis: RUTH on CKD Interval history: Patient awake, alert,denies SOB, CP, palpitations, dysuria, abd pain, nausea, vomiting. Objective - Vital Signs Vital signs: Vital Signs - 12hr 11/24/18 11/24/18 11/24/18 04:38 05:29 07:19 Pulse Rate 99 H 99 H 95 H Blood Pressure 121/78 O2 Sat by Pulse 98 Oximetry - General Appearance General appearance: well-developed, well-nourished, appears stated age EENT: ATNC, PERRL, mucous membranes moist Neck: no JVD, other (no edema ) Respiratory: Present: Clear to Ascultation Cardiology: regular, S1S2 Gastrointestinal: normoactive bowel sounds Integumentary: no rash, other (no edema ) Neurologic: no focal deficit, alert and oriented x3, strength 5/5, CN 3-12 intact Psychiatric: mood/affect appropriate, cooperative - Lab 11/23/18 04:57 11/24/18 09:31 Most recent lab results Calcium 8.9 mg/dL (8.4-10.2) 11/24/18 09:31 96.4 mg/dL (0.1-20.0) H 11/21/18 19:30 36 mmol/L 11/20/18 23:48 < 4 mg/dL (5-11.8) L 11/21/18 19:30 Medications & Allergies - Medications Allergies/Adverse Reactions: Allergies No Known Allergies Allergy (Unverified 11/20/18 16:31) Home Medications: Home Medications Medication Instructions Recorded Confirmed Last Taken Type Aspirin 325 mg PO QDAY #30 tablet 11/24/18 Unknown Rx AtorvaSTATin [Lipitor] 40 mg PO QHS #30 tablet 11/24/18 Unknown Rx hydrALAZINE [Apresoline TAB] 50 mg PO Q8HR #120 tablet 11/24/18 Unknown Rx Active Medications: Generic Name Dose Route Start Last Admin Trade Name Freq PRN Reason Stop Dose Admin Acetaminophen 650 mg 11/20/18 20:41 Tylenol PO Q4H PRN Pain, Mild (1-3) Albuterol 2.5 mg 11/20/18 20:41 Proventil IH Q3HRT PRN Shortness Of Breath Aspirin 325 mg 11/21/18 10:00 11/24/18 09:43 Aspirin PO 325 mg QDAY BECKIE Administration Atorvastatin Calcium 40 mg 11/20/18 22:00 11/23/18 21:12 Lipitor PO 40 mg QHS BECKIE Administration Bisacodyl 10 mg 11/20/18 20:41 Dulcolax [place] QDAY PRN Constipation Calcitriol 0.25 mcg 11/24/18 12:00 11/24/18 13:59 Rocaltrol PO 0.25 mcg QDAY BECKIE Administration Epoetin Blayne 10,000 unit 11/23/18 11:00 Procrit SUB-Q NINO BECKIE Hydralazine HCl 10 mg 11/22/18 12:26 Apresoline IV Q4HR PRN Hypertension Hydralazine HCl 50 mg 11/22/18 14:00 11/24/18 13:59 Apresoline PO 50 mg Q8HR BECKIE Administration Sodium Chloride 100 mls @ 999 mls/hr 11/23/18 11:00 Nacl 0.9% IV NINO PRN Hypotension Sodium Chloride 100 mls @ 999 mls/hr 11/24/18 12:47 Nacl 0.9% IV NINO PRN Hypotension Magnesium Hydroxide 30 ml 11/20/18 20:41 Milk Of Magnesia PO Q4H PRN Constipation Metoclopramide HCl 10 mg 11/20/18 20:41 11/23/18 21:12 Reglan PO 10 mg Q6H PRN Administration Nausea And Vomiting Ondansetron HCl 4 mg 11/20/18 20:41 Zofran IV Q8H PRN Nausea And Vomiting Promethazine HCl 25 mg 11/20/18 20:41 Phenergan [place] Q6H PRN Nausea And Vomiting Sodium Chloride 10 ml 11/20/18 20:41 11/23/18 21:12 Sodium Chloride Flush Syringe 10 Ml IV 10 ml PRN PRN Administration LINE FLUSH
[2018-11-24] MEDS ORDERED: TRIPLE ANTIBIOTIC TP ONE ×2 (16:00→16:54)
[2018-11-24 17:29] VITALS: BP 129/71
[2018-11-24] MEDS: SODIUM CHLORIDE FLUSH SYRINGE 10 ML IV PRN (21:29)
== END 2018-11-25 00:17 | disposition home or self-care (01) | DRG 70 ==
LOC: ED 16:27 → 4A 20:41
PROVIDERS: ADMIT Internal Medicine; ATTEND Internal Medicine
PROC: 3E0234Z Introduction of Serum, Toxoid and Vaccine into Muscle, Percutaneous Approach (ICD-10-PCS; 2018-11-21)
PROC: 02H633Z Insertion of Infusion Device into Right Atrium, Percutaneous Approach (ICD-10-PCS; principal; 2018-11-23)
PROC: B2141ZZ Fluoroscopy of Right Heart using Low Osmolar Contrast (ICD-10-PCS; 2018-11-23)
PROC: B244YZZ Ultrasonography of Right Heart using Other Contrast (ICD-10-PCS; 2018-11-23)
PROC: 5A1D70Z Performance of Urinary Filtration, Intermittent, Less than 6 Hours Per Day (ICD-10-PCS; 2018-11-23)
PROC: 5A1D70Z Performance of Urinary Filtration, Intermittent, Less than 6 Hours Per Day (ICD-10-PCS; 2018-11-24)
DX: G93.41 Metabolic encephalopathy (principal); N17.0 Acute kidney failure with tubular necrosis; I21.A1 Myocardial infarction type 2; E87.2 Acidosis; D63.8 Anemia in other chronic diseases classified elsewhere; I10 Essential (primary) hypertension; Z23 Encounter for immunization
CPT/HCPCS: 36415; 36556; 70450; 70551; 71045; 76770; 80048; 80053; 80061; 80074; 80320; 81001; 82140; 82550; 82553; 82570; 82962; 83970; 84156; 84300; 84443; 84484; 85025; 85027; 85610; 85670; 85730; 87040; 90732; 93005; 93010; 93306; 93880; 96374; G0378; A6250; A9270-GY; C1752; G0480; J0885; J1644; J2250; J3010; J7030; J7040; J7050

== ENCOUNTER 2018-11-25 16:03 | Inpatient (IN) | payer MEDICARE ==
--- NOTE | 2018-11-25 16:40 | Emergency Department Report ---
ED Altered Mental Status HPI - General Chief Complaint: Altered Mental Status Stated Complaint: AMS Time Seen by Provider: 11/25/18 16:33 Source: EMS Mode of arrival: Stretcher Limitations: Altered Mental Status - History of Present Illness Initial Comments: pt is a 68-year-old male patient presents emergency room for altered mental status. Patient brought in by EMS. Report received from EMS. EMS states that the patient's family called EMS because he was not talking and not responding. When EMS arrived, EMS was able to get the patient talking but the patient was still somewhat lethargic. Patient's blood sugar 221 by EMS. Patient was just in the hospital and released this morning. Patient does not have a history of diabetes. At this time the patient is oriented to self and time and is oriented to situation and place MD Complaint: altered mental status, confusion, decreased responsiveness -: Sudden Severity: severe Consistency of Symptoms: waxing and waning, constant Associated Symptoms: denies other symptoms - Related Data Previous Rx's Medication Instructions Recorded Last Taken Type Aspirin 325 mg PO QDAY #30 tablet 11/24/18 Unknown Rx AtorvaSTATin [Lipitor] 40 mg PO QHS #30 tablet 11/24/18 Unknown Rx hydrALAZINE [Apresoline TAB] 50 mg PO Q8HR #120 tablet 11/24/18 Unknown Rx Allergies Allergy/AdvReac Type Severity Reaction Status Date / Time No Known Allergies Allergy Unverified 11/20/18 16:31 ED Review of Systems ROS: Stated complaint: AMS Other details as noted in HPI Comment: Unobtainable due to pts medical conditions ED Past Medical Hx - Past Medical History Previous Medical History?: Yes Hx Hypertension: Yes Hx Congestive Heart Failure: No Hx Diabetes: No Hx Renal Disease: No Hx Asthma: No Hx COPD: No - Surgical History Past Surgical History?: No - Family History Family history: no significant - Social History Smoking Status: Never Smoker Substance Use Type: None - Medications Home Medications: Home Medications Medication Instructions Recorded Confirmed Last Taken Type Aspirin 325 mg PO QDAY #30 tablet 11/24/18 Unknown Rx AtorvaSTATin [Lipitor] 40 mg PO QHS #30 tablet 11/24/18 Unknown Rx hydrALAZINE [Apresoline TAB] 50 mg PO Q8HR #120 tablet 11/24/18 Unknown Rx ED Physical Exam - General Limitations: Altered Mental Status General appearance: alert, in no apparent distress - Head Head exam: Present: atraumatic, normocephalic - Eye Eye exam: Present: normal appearance - ENT ENT exam: Present: mucous membranes moist - Neck Neck exam: Present: normal inspection - Respiratory Respiratory exam: Present: normal lung sounds bilaterally. Absent: respiratory distress - Cardiovascular Cardiovascular Exam: Present: regular rate, normal rhythm. Absent: systolic murmur, diastolic murmur, rubs, gallop - GI/Abdominal GI/Abdominal exam: Present: soft, normal bowel sounds - Rectal Rectal exam: Present: deferred - Extremities Exam Extremities exam: Present: normal inspection - Back Exam Back exam: Present: normal inspection - Neurological Exam Neurological exam: Present: alert, altered - Psychiatric Psychiatric exam: Present: normal affect, normal mood - Skin Skin exam: Present: warm, dry, intact, normal color. Absent: rash - Assessment Assessment Interval: Baseline - Level of Consciousness 1a. Level of Consciousness: alert/keenly responsive - LOC Questions 1b. LOC Questions: answers 1 question correctly - LOC Command 1c. LOC Commands: performs tasks correctly - Best Gaze 2. Best Gaze: normal - Visual 3. Visual: no visual loss - Facial Palsy 4. Facial Palsy: normal symmetrical movement - Motor Arm 5a. Motor Arm Left: no drift 5b. Motor Arm Right: no drift - Motor Leg 6a. Motor Leg Left: no drift 6b. Motor Leg Right: no drift - Limb Ataxia 7. Limb Ataxia: absent - Sensory 8. Sensory: normal - Best Language 9. Best Language: no aphasia - Dysarthria 10. Dysarthria: normal - Extinction and Inattention 11. Extinction/Inattention: no abnormality - Scoring Total Score: 1 Stroke Severity: Minor Stroke ED Course Vital Signs 11/25/18 11/25/18 11/25/18 16:17 16:29 16:30 Temperature 97.7 F Pulse Rate 86 82 82 Respiratory 15 16 13 Rate Blood Pressure 106/54 Blood Pressure 98/54 [Left] O2 Sat by Pulse 99 99 97 Oximetry 11/25/18 11/25/18 11/25/18 16:45 17:00 17:30 Temperature 97.9 F Pulse Rate 82 83 81 Respiratory 16 16 18 Rate Blood Pressure 98/54 106/54 98/54 Blood Pressure [Left] O2 Sat by Pulse 99 99 100 Oximetry 11/25/18 11/25/18 11/25/18 18:00 18:30 19:00 Temperature Pulse Rate 84 76 74 Respiratory 13 13 13 Rate Blood Pressure 98/54 98/54 98/54 Blood Pressure [Left] O2 Sat by Pulse 100 99 100 Oximetry 11/25/18 11/25/18 11/25/18 19:30 20:00 20:30 Temperature Pulse Rate 80 77 88 Respiratory 15 16 17 Rate Blood Pressure 98/54 109/56 128/56 Blood Pressure [Left] O2 Sat by Pulse 99 97 Oximetry 11/25/18 11/25/18 11/25/18 21:00 21:30 22:00 Temperature Pulse Rate 87 90 79 Respiratory 15 13 12 Rate Blood Pressure 128/56 125/75 126/67 Blood Pressure [Left] O2 Sat by Pulse 98 98 100 Oximetry 11/25/18 11/25/18 22:30 23:00 Temperature Pulse Rate 79 86 Respiratory 14 14 Rate Blood Pressure 123/70 111/72 Blood Pressure [Left] O2 Sat by Pulse 100 98 Oximetry - Reevaluation(s) Reevaluation #1: She admitted to the hospitalist service. 11/25/18 18:49 - Consultations Consultation #1: Hospitalist consultation for admission. Hospitalist to admit patient 11/25/18 18:49 - Lab Data Result diagrams: 11/25/18 17:05 11/25/18 17:05 Lab Results 11/25/18 11/25/18 11/25/18 Range/Units 17:05 17:05 17:05 WBC 6.4 (4.5-11.0) K/mm3 RBC 3.38 L (3.65-5.03) M/mm3 Hgb 10.4 L (11.8-15.2) gm/dl Hct 31.2 L (35.5-45.6) % MCV 92 (84-94) fl MCH 31 (28-32) pg MCHC 33 (32-34) % RDW 16.3 H (13.2-15.2) % Plt Count 166 (140-440) K/mm3 Lymph % (Auto) 14.0 (13.4-35.0) % [place] % (Auto) 4.7 (0.0-7.3) % Eos % (Auto) 7.4 H (0.0-4.3) % Baso % (Auto) 0.4 (0.0-1.8) % Lymph # 0.9 L (1.2-5.4) K/mm3 [place] # 0.3 (0.0-0.8) K/mm3 Eos # 0.5 H (0.0-0.4) K/mm3 Baso # 0.0 (0.0-0.1) K/mm3 Seg Neutrophils % 73.5 H (40.0-70.0) % Seg Neutrophils # 4.7 (1.8-7.7) K/mm3 VBG pH (7.320-7.420) Sodium 134 L (137-145) mmol/L Potassium 3.9 (3.6-5.0) mmol/L Chloride 98.4 (98-107) mmol/L Carbon Dioxide 23 (22-30) mmol/L Anion Gap 17 mmol/L BUN 30 H (9-20) mg/dL Creatinine 5.2 H (0.8-1.5) mg/dL Estimated GFR 13 ml/min BUN/Creatinine Ratio 6 % Glucose 233 H (75-100) mg/dL Lactic Acid 1.50 (0.7-2.0) mmol/L Calcium 8.8 (8.4-10.2) mg/dL Total Bilirubin 0.30 (0.1-1.2) mg/dL AST 16 (5-40) units/L ALT 7 (7-56) units/L Alkaline Phosphatase 56 (35-129) units/L Total Creatine Kinase 185 H (55-170) units/L Troponin T 0.151 H* D (0.00-0.029) ng/mL Total Protein 6.8 (6.3-8.2) g/dL Albumin 3.6 L (3.9-5) g/dL Albumin/Globulin Ratio 1.1 % Salicylates (2.8-20.0) mg/dL Acetaminophen (10.0-30.0) ug/mL Plasma/Serum Alcohol (0-0.07) % 11/25/18 11/25/18 11/25/18 Range/Units 17:05 17:05 17:05 WBC (4.5-11.0) K/mm3 RBC (3.65-5.03) M/mm3 Hgb (11.8-15.2) gm/dl Hct (35.5-45.6) % MCV (84-94) fl MCH (28-32) pg MCHC (32-34) % RDW (13.2-15.2) % Plt Count (140-440) K/mm3 Lymph % (Auto) (13.4-35.0) % [place] % (Auto) (0.0-7.3) % Eos % (Auto) (0.0-4.3) % Baso % (Auto) (0.0-1.8) % Lymph # (1.2-5.4) K/mm3 [place] # (0.0-0.8) K/mm3 Eos # (0.0-0.4) K/mm3 Baso # (0.0-0.1) K/mm3 Seg Neutrophils % (40.0-70.0) % Seg Neutrophils # (1.8-7.7) K/mm3 VBG pH (7.320-7.420) Sodium (137-145) mmol/L Potassium (3.6-5.0) mmol/L Chloride (98-107) mmol/L Carbon Dioxide (22-30) mmol/L Anion Gap mmol/L BUN (9-20) mg/dL Creatinine (0.8-1.5) mg/dL Estimated GFR ml/min BUN/Creatinine Ratio % Glucose (75-100) mg/dL Lactic Acid (0.7-2.0) mmol/L Calcium (8.4-10.2) mg/dL Total Bilirubin (0.1-1.2) mg/dL AST (5-40) units/L ALT (7-56) units/L Alkaline Phosphatase (35-129) units/L Total Creatine Kinase (55-170) units/L Troponin T (0.00-0.029) ng/mL Total Protein (6.3-8.2) g/dL Albumin (3.9-5) g/dL Albumin/Globulin Ratio % Salicylates < 0.3 L (2.8-20.0) mg/dL Acetaminophen < 5.0 L (10.0-30.0) ug/mL Plasma/Serum Alcohol < 0.01 (0-0.07) % 11/25/18 Range/Units 17:05 WBC (4.5-11.0) K/mm3 RBC (3.65-5.03) M/mm3 Hgb (11.8-15.2) gm/dl Hct (35.5-45.6) % MCV (84-94) fl MCH (28-32) pg MCHC (32-34) % RDW (13.2-15.2) % Plt Count (140-440) K/mm3 Lymph % (Auto) (13.4-35.0) % [place] % (Auto) (0.0-7.3) % Eos % (Auto) (0.0-4.3) % Baso % (Auto) (0.0-1.8) % Lymph # (1.2-5.4) K/mm3 [place] # (0.0-0.8) K/mm3 Eos # (0.0-0.4) K/mm3 Baso # (0.0-0.1) K/mm3 Seg Neutrophils % (40.0-70.0) % Seg Neutrophils # (1.8-7.7) K/mm3 VBG pH 7.374 (7.320-7.420) Sodium (137-145) mmol/L Potassium (3.6-5.0) mmol/L Chloride (98-107) mmol/L Carbon Dioxide (22-30) mmol/L Anion Gap mmol/L BUN (9-20) mg/dL Creatinine (0.8-1.5) mg/dL Estimated GFR ml/min BUN/Creatinine Ratio % Glucose (75-100) mg/dL Lactic Acid (0.7-2.0) mmol/L Calcium (8.4-10.2) mg/dL Total Bilirubin (0.1-1.2) mg/dL AST (5-40) units/L ALT (7-56) units/L Alkaline Phosphatase (35-129) units/L Total Creatine Kinase (55-170) units/L Troponin T (0.00-0.029) ng/mL Total Protein (6.3-8.2) g/dL Albumin (3.9-5) g/dL Albumin/Globulin Ratio % Salicylates (2.8-20.0) mg/dL Acetaminophen (10.0-30.0) ug/mL Plasma/Serum Alcohol (0-0.07) % - EKG Data -: EKG Interpreted by Ar EKG shows normal: sinus rhythm, axis, intervals, QRS complexes, ST-T waves Rate: normal - Radiology Data Radiology results: report reviewed CT head/brain wo con INDICATION: Altered Mental Status. TECHNIQUE: Routine CT head without contrast. Sagittal and coronal reformatted images were obtained. All CT scans at this location are performed using CT dose reduction for ALARA by means of automated exposure control. COMPARISON: MR scan of the brain from 11/22/[address] scan of the brain from November 20. FINDINGS: BRAIN / INTRACRANIAL CONTENTS: No acute hemorrhage, mass effect, midline shift, hydrocephalus, or acute, large territorial infarct. As seen in the previous imaging studies, periventricular low density areas are seen in both cerebral hemispheres probably due to subcortical arteriosclerosis. Chronic lacunae are seen in the basal ganglia bilaterally more on the left side. Chronic ischemic changes are seen in the right side of billy. I do not see focal lesion in the cerebellar hemispheres. 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 CRANIOCERVICAL JUNCTION: No significant abnormality. ORBITS: No significant abnormality of visualized orbits. SINUSES / MASTOIDS: No significant abnormality of the visualized paranasal sinuses or mastoid air cells. ADDITIONAL FINDINGS: None. IMPRESSION: I do not not see an acute parenchymal lesion in the brain. CT findings remain unchanged. - Medical Decision Making Patient is a 68-year-old male that presents to the ER with complaints of confusion, altered mental status and decreased responsiveness. Patient family called EMS. Patient is disoriented on exam. Patient's labs unremarkable except for anemia and abnormal chemistry and elevated troponin - Differential Diagnosis altered mental status, confusion, decreased responsiveness. Critical Care Time: Yes Critical care attestation.: If time is entered above; I have spent that time in minutes in the direct care of this critically ill patient, excluding procedure time. Critical Care Time: 35 minutes ED Disposition Clinical Impression: Decreased responsiveness, Confusion, Elevated troponin I level, Anemia in chronic illness Altered mental state Qualifiers: Altered mental status type: unspecified Qualified Code(s): R41.82 - Altered mental status, unspecified Renal failure Qualifiers: Renal failure chronicity: acute Acute renal failure type: unspecified Qualified Code(s): N17.9 - Acute kidney failure, unspecified Disposition: -09 OP ADMIT IP TO THIS HOSP Is pt being admited?: Yes Does the pt Need Aspirin: No Condition: Critical Time of Disposition: 18:49
[2018-11-25 17:35] LABS: Basophils % (Auto) 0.4 % (0.0-1.8); Eosinophils # (Auto) 0.5 K/mm3 (0.0-0.4); Eosinophils % (Auto) 7.4 % (0.0-4.3); Hematocrit 31.2 % (35.5-45.6); Hemoglobin 10.4 gm/dl (11.8-15.2); Lymphocytes # (Auto) 0.9 K/mm3 (1.2-5.4); Mean Corpuscular HGB Conc 33 % (32-34); Mean Corpuscular Volume 92 fl (84-94); Monocytes # (Auto) 0.3 K/mm3 (0.0-0.8); Monocytes % (Auto) 4.7 % (0.0-7.3); Platelet Count 166 K/mm3 (140-440); Red Blood Count 3.38 M/mm3 (3.65-5.03); Red Cell Distribution Width 16.3 % (13.2-15.2)
--- NOTE | 2018-11-25 17:45 | Cat Scan Report ---
CT head/brain wo con INDICATION: Altered Mental Status. TECHNIQUE: Routine CT head without contrast. Sagittal and coronal reformatted images were obtained. A ll CT scans at this location are performed using CT dose reduction for ALARA by means of automated ex posure control. COMPARISON: MR scan of the brain from 11/22/[address] scan of the brain from November 20 2018. FINDINGS: BRAIN / INTRACRANIAL CONTENTS: No acute hemorrhage, mass effect, midline shift, hydrocephalus, or acu te, large territorial infarct. As seen in the previous imaging studies, periventricular low density a reas are seen in both cerebral hemispheres probably due to subcortical arteriosclerosis. Chronic lacu efrem are seen in the basal ganglia bilaterally more on the left side. Chronic ischemic changes are seen in the right side of billy. I do not see focal lesion in the cerebel lar hemispheres. 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 CRANIOCERVICAL JUNCTION: No significant abnormality. ORBITS: No significant abnormality of visualized orbits. SINUSES / MASTOIDS: No significant abnormality of the visualized paranasal sinuses or mastoid air mike ls. ADDITIONAL FINDINGS: None. IMPRESSION: I do not not see an acute parenchymal lesion in the brain. CT findings remain unchanged. Signer Name: Isabelle Chowdhury MD Signed: 11/25/2018 5:40 PM Workstation Name: [id number]
[2018-11-25 18:56] LABS: Albumin 3.6 g/dL (3.9-5); Calcium 8.8 mg/dL (8.4-10.2)
[2018-11-25] MEDS ORDERED: D50W (25GM) Syringe IV PRN (23:02)
[2018-11-25 23:17] LABS: Bilirubin,Urine NEG (Negative); Blood,Urine NEG (Negative); Color,Urine Yellow (Yellow); RBC,Urine < 1.0 /HPF (0.0-6.0); Urobilinogen,Urine < 2.0 mg/dL (<2.0); WBC,Urine < 1.0 /HPF (0.0-6.0)
[2018-11-25] MEDS: HEPARIN SUB-Q SCH (23:21)
[2018-11-25 23:24] LABS: Amphetamine Screen,Urine PRESUMPTIVE NEGATIVE; Benzodiazepines Screen,Urine PRESUMPTIVE NEGATIVE; Cannabinoid Screen,Urine PRESUMPTIVE NEGATIVE; Cocaine Screen,Urine PRESUMPTIVE NEGATIVE; Methadone Screen,Urine PRESUMPTIVE NEGATIVE; Opiate Screen,Urine PRESUMPTIVE NEGATIVE
--- NOTE | 2018-11-26 04:13 | History and Physical Report ---
CHIEF COMPLAINT: Altered mental status. HISTORY OF PRESENTING ILLNESS: The patient is a 68-year-old male brought in by Emergency Room after family found him not to be responding and talking the way he usually behave . When EMS got to the patient's house, they got him to be talking with some lethargy. The patient's blood sugar was checked and was found to be 221. [facility] and then developed this change in mental status. There is no history of shortness of breath or cough. No history of chest pain, fever, chills, nausea or vomiting and the patient was not known to be diabetic before. PAST MEDICAL HISTORY: Pertinent for hypertension. Also, the patient said he has past history of end-stage renal disease. PAST SURGICAL HISTORY: Unremarkable. FAMILY HISTORY: Noncontributory. SOCIAL HISTORY: The patient does not smoke, does not drink alcohol and does not use illicit drugs. MEDICATIONS: The patient is on aspirin 325 mg by mouth daily, atorvastatin 40 mg by mouth at bedtime, hydralazine 50 mg by mouth every 8 hours. ALLERGIES: There are no known drug allergies. REVIEW OF SYSTEMS: CONSTITUTIONAL: There is no fever, no chills, no diaphoresis. HEENT: There is no headache or sore throat. CARDIOVASCULAR SYSTEM: There is no chest pain or orthopnea. RESPIRATORY SYSTEM: There is no shortness of breath or cough. GASTROINTESTINAL SYSTEM: There is no nausea, no vomiting, no abdominal pain, diarrhea or constipation. NEUROLOGICAL SYSTEM: Change in mental status noted, lethargy noted. MUSCULOSKELETAL SYSTEM: There is no joint pain or swelling. DERMATOLOGICAL SYSTEM: There is no skin rash or itching. GENITOURINARY SYSTEM: There is history of dysuria, but no hematuria or flank pain. Rest of system review is normal. PHYSICAL EXAMINATION: GENERAL: At the time of exam, the patient was found to be alert, oriented x 3 and not in acute distress. VITAL SIGNS: At the initial time of presentation showed temperature of 97.7 degrees Fahrenheit, pulse of 86, respirations 15, blood pressure 98/54, O2 sat of 99% on room air. HEENT: Showed pupils to be equal, round, reactive to light and accommodating. Extraocular muscles are intact. NECK: Supple with no JVD or carotid bruit. The patient has dressing on the right side of the neck. CARDIOVASCULAR SYSTEM: Showed normal first and second heart sounds with grade 3/6 systolic murmur at the apex. RESPIRATORY SYSTEM: Showed good air entry on both sides of the lungs with no abnormal breath sounds. GASTROINTESTINAL SYSTEM: Showed abdomen to be full, soft, nontender with no organomegaly or rigidity. NEUROLOGIC: Showed no focal deficit. MUSCULOSKELETAL SYSTEM: Showed no joint swelling or tenderness. DERMATOLOGICAL SKIN: Showed no skin rash. GENITOURINARY SYSTEM: Showed no costovertebral angle tenderness. PERTINENT LABORATORY DATA AND IMAGING STUDIES: The patient had CT of the head done without contrast that showed no acute intracranial abnormality. The patient's lab result shows CBC with normal white count, low hemoglobin of 10.4 and low hematocrit of 31.2 with normal MCV and CBC differential showing elevated eosinophil count of 7.4. The patient's chemistry showed low sodium of 134 with elevated BUN level of 30 and elevated creatinine level of 5.2 and high glucose level of 233. The patient's cardiac enzymes show elevated total CPK of 185 with elevated troponin level of 0.151. The patient's urinalysis showed yellow clear urine with elevated pH of 8.0, otherwise unremarkable. The patient's toxicology screen came back unremarkable. DIAGNOSES: 1. Altered mental status. 2. End-stage renal disease, on dialysis. 3. Elevated troponin level. 4. Hyperglycemia PLAN OF CARE: 1. The patient will be admitted to remote to medical/surgical [facility] on remote telemetry. 2. The patient will have serial cardiac enzymes involving troponin, total CK, and CK-MB checked every 6 hours x 2 more levels. 3. The patient will have Nephrology consult with Dr. Mckeon this morning because of renal failure. 4. The patient will be on Accu-Chek a.c. and at bedtime followed by low-dose sliding scale using regular insulin coverage. 5. The patient's diet will be consistent carbohydrate, low sodium diet. 6. The patient will be on aspirin 325 mg by mouth daily and will be on his home medications as shown in the medication reconciliation section. 7. The patient will have arterial blood gas done. 8. The patient will have Cardiology consult with Dr. Sheryl Paz because of elevated troponin. 9. The patient will be on his home medications as shown in the medication reconciliation section. JOB# [id number] [facility]
[2018-11-26] MEDS: APRESOLINE PO SCH ×3 (06:10→23:08)
[2018-11-26] MEDS: HumuLIN R SUB-Q SCH ×4 (08:08→23:08)
[2018-11-26] MEDS: ASPIRIN PO SCH (10:05)
[2018-11-26] MEDS: HEPARIN SUB-Q SCH ×2 (10:05→21:01)
--- NOTE | 2018-11-26 14:13 | Consultation ---
History of Present Illness Consult date: 11/26/18 Medications and Allergies Allergies Allergy/AdvReac Type Severity Reaction Status Date / Time No Known Allergies Allergy Unverified 11/20/18 16:31 Home Medications Medication Instructions Recorded Confirmed Last Taken Type Aspirin 325 mg PO QDAY #30 tablet 11/24/18 Unknown Rx AtorvaSTATin [Lipitor] 40 mg PO QHS #30 tablet 11/24/18 Unknown Rx hydrALAZINE [Apresoline TAB] 50 mg PO Q8HR #120 tablet 11/24/18 Unknown Rx Active Meds: Active Medications Aspirin (Aspirin) 325 mg PO QDAY [facility] Last Admin: 11/26/18 10:05 Dose: 325 mg Documented by: Atorvastatin Calcium (Lipitor) 40 mg PO QHS [facility] Dextrose (D50w (25gm) Syringe) 50 ml IV PRN PRN PRN Reason: Hypoglycemia Heparin Sodium (Porcine) (Heparin) 5,000 unit SUB-Q Q12HR [facility] Last Admin: 11/26/18 10:05 Dose: 5,000 unit Documented by: Hydralazine HCl (Apresoline) 50 mg PO Q8HR [facility] Last Admin: 11/26/18 06:10 Dose: 50 mg Documented by: Insulin Human Regular (Humulin R) 0 units SUB-Q [facility]; Protocol Last Admin: 11/26/18 08:08 Dose: Not Given Documented by: Insulin Human Regular [facility] R) [facility]; Protocol Physical Examination Vital Signs Pulse Resp Pulse Ox 86 15 99 11/25/18 16:17 11/25/18 16:17 11/25/18 16:17 Results 11/25/18 17:05 11/25/18 17:05 Cardiac Enzymes 11/25/18 11/26/18 Range/Units 17:05 08:42 AST 16 (5-40) units/L CK-MB (CK-2) 5.0 H (0.0-4.0) ng/mL CBC 11/25/18 Range/Units 17:05 WBC 6.4 (4.5-11.0) K/mm3 RBC 3.38 L (3.65-5.03) M/mm3 Hgb 10.4 L (11.8-15.2) gm/dl Hct 31.2 L (35.5-45.6) % Plt Count 166 (140-440) K/mm3 Lymph # 0.9 L (1.2-5.4) K/mm3 [place] # 0.3 (0.0-0.8) K/mm3 Eos # 0.5 H (0.0-0.4) K/mm3 Baso # 0.0 (0.0-0.1) K/mm3 Comprehensive Metabolic Panel 11/25/18 Range/Units 17:05 Sodium 134 L (137-145) mmol/L Potassium 3.9 (3.6-5.0) mmol/L Chloride 98.4 (98-107) mmol/L Carbon Dioxide 23 (22-30) mmol/L BUN 30 H (9-20) mg/dL Creatinine 5.2 H (0.8-1.5) mg/dL Glucose 233 H (75-100) mg/dL Calcium 8.8 (8.4-10.2) mg/dL AST 16 (5-40) units/L ALT 7 (7-56) units/L Alkaline Phosphatase 56 (35-129) units/L Total Protein 6.8 (6.3-8.2) g/dL Albumin 3.6 L (3.9-5) g/dL Assessment and Plan Detailed Cardiology consult dictated.
--- NOTE | 2018-11-26 14:43 | Consultation ---
History of Present Illness - Reason for Consult Consult date: 11/26/18 acute renal failure, chronic renal failure Requesting physician: SAM SANCHEZ - History of Present Illness 68-year-old male known to our group as he was seen by my colleague Dr. Brito during last admission. Patient was just discharged a couple of days ago. He was admitted with altered mental status. Was found confused at home. Blood sugar was 221 mg/dL. CT of the head did not show any acute stroke but he does have evidence of old cerebrovascular accidents. BUN/Creatinine were found to be quite elevated at 47/7.4 mg/dL. Patient received a couple of dialysis treatments and was discharged home without a dialysis catheter with plan for early follow-up in the office. Patient presents now because of confusion again at home. He has no recollection of what happened or how he got to the hospital. He felt he was doing well but does not know how he ended up back in the hospital. Apparently his friend found him confused and called the ambulance. BUN/creatinine are 30/5.2 mg/dL not significantly changed from his numbers on discharge. Past History Past Medical History: anemia, diabetes, hypertension, renal failure Past Surgical History: Other (Dialysis catheter placement) Social history: single, lives with family (lives with a lady friend), alcohol abuse (social), other (originally from [facility]. 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 denies: smoking, prescription drug abuse, IV drug use Family history: no significant family history, other (does not know the cause of of his parents 3 brothers and 2 sisters. One sibling is alive and he believes is in good health) Medications and Allergies Allergies Allergy/AdvReac Type Severity Reaction Status Date / Time No Known Allergies Allergy Unverified 11/20/18 16:31 Home Medications Medication Instructions Recorded Confirmed Last Taken Type Aspirin 325 mg PO QDAY #30 tablet 11/24/18 Unknown Rx AtorvaSTATin [Lipitor] 40 mg PO QHS #30 tablet 11/24/18 Unknown Rx hydrALAZINE [Apresoline TAB] 50 mg PO Q8HR #120 tablet 11/24/18 Unknown Rx Active Meds: Active Medications Aspirin (Aspirin) 325 mg PO QDAY [facility] Last Admin: 11/26/18 10:05 Dose: 325 mg Documented by: Atorvastatin Calcium (Lipitor) 40 mg PO QHS [facility] Dextrose (D50w (25gm) Syringe) 50 ml IV PRN PRN PRN Reason: Hypoglycemia Heparin Sodium (Porcine) (Heparin) 5,000 unit SUB-Q Q12HR [facility] Last Admin: 11/26/18 10:05 Dose: 5,000 unit Documented by: Hydralazine HCl (Apresoline) 50 mg PO Q8HR [facility] Last Admin: 11/26/18 14:32 Dose: 50 mg Documented by: Insulin Human Regular (Humulin R) 0 units SUB-Q [facility]; Protocol Last Admin: 11/26/18 12:30 Dose: Not Given Documented by: Insulin Human Regular (Humulin R) 0 units SUB-Q QHS [facility]; Protocol Review of Systems All systems: negative (Constitutional: no fever or chills. No anorexia or weight loss. HEENT: No sore throat or sinus drainage no hearing or vision impairment . Cardiovascular: No chest pain, shortness of breath, palpitations, lower extremity swelling or dizziness. Respiratory: No cough, sputum, shortness of breath, hemoptysis or wheezing. Gastrointestinal: No nausea, vomiting, diarrhea, abdominal pain, hematemesis or melena. Genitourinary: admits to urinary hesitancy and straining.No frequency urgency dysuria or hematuria. hematologic: No abnormal bleeding or bruising. Integumentary: Admits to itching but no rash. Neurological: No headache no focal weakness or numbness, no syncope or seizures. He has felt dizzy and has been sleeping a lot Musculoskeletal: No joint pains no stiffness. Psychiatry: no anxiety or depression) Exam - Vital Signs Vital signs: Vital Signs Pulse Resp Pulse Ox 86 15 99 11/25/18 16:17 11/25/18 16:17 11/25/18 16:17 - Physical Exam Narrative exam: Elderly male lying in bed in no acute distress HEENT: NCAT, pink oral mucous membrane Neck: Supple, no venous distention CVS: S1S2 RRR with systolic murmur, rub or gallop Chest: Clear to auscultation Abdomen: Protuberant, soft, nontender, no organomegaly, bowel sounds are present Extremities: No edema Genitourinary deferred Skin warm and dry, no rash Neuro: Awake, alert no focal deficits Results - Lab Results 11/25/18 17:05 11/25/18 17:05 Most recent lab results Calcium 8.8 mg/dL (8.4-10.2) 11/25/18 17:05 Assessment and Plan - Patient Problems (1) RUTH (acute kidney injury) Current Visit: No Status: Acute Plan to address problem: Unclear if patient has acute kidney injury or chronic kidney disease that has progressed to end-stage renal disease. Follow-up renal indices. If kidney function remains stable, will discharge tomorrow and follow up in the office. If however worsening, we need to resume dialysis on Wednesday and arrange for placement at the outpatient dialysis clinic. (2) Chronic kidney disease, unspecified Current Visit: Yes Status: Acute Plan to address problem: Chronic kidney disease presumably secondary to hypertensive nephrosclerosis. Stage unknown. Still unclear if patient has actually progressed to stage V. (3) Hypertensive chronic kidney disease with stage 1 through stage 4 chronic kidney disease, or unspecified chronic kidney disease Current Visit: Yes Status: Acute Plan to address problem: Follow blood pressure on current medications (4) Anemia in chronic kidney disease Current Visit: Yes Status: Acute Plan to address problem: Follow-up hemoglobin (5) CVA (cerebral vascular accident) Current Visit: No Status: Acute Plan to address problem: Old cerebrovascular accidents. Needs good blood pressure control (6) Encephalopathy Current Visit: No Status: Acute Plan to address problem: Mental status has improved back to baseline. (7) Type 2 diabetes mellitus with diabetic nephropathy Current Visit: Yes Status: Acute Plan to address problem: Follow-up blood sugar off of medications
--- NOTE | 2018-11-26 15:41 | Progress Note ---
Assessment and Plan Assessment and plan: 68-year-old man with known stage V chronic kidney disease who was brought to the hospital for decreased responsiveness. CKD stage V progressing to end-stage renal disease Nephrology input appreciated, patient will most likely need dialysis, we'll continue to monitor kidney function Acute metabolic encephalopathy due to uremia Patient is planned for dialysis, improving IV fluids Senile dementia Patient is forgetful, and does not remember previous admission for the same indication. Continue supportive care DVT prophylaxis heparin . History Interval history: Denies chest pain denies shortness of breath. Complaining of generalized weakness. Dizziness is resolving. He states that his head feels foggy. Denies abdominal pain nausea or vomiting Hospitalist Physical - Physical exam Narrative exam: 68-year-old man with history of dementia, chronic kidney disease stage V general.: Appears well, no distress, nontoxic HEENT: Moist mucous membranes, extraocular muscles intact, no lymphadenopathy Neck: supple Cardiac: S1-S2 heard Lungs: clear to auscultation bilaterally Abdomen: soft , nontender, nondistended, bowel sounds positive Extremities: no edema clubbing or cyanosis Skin: no rash or lesions Neurologic: no gross focal deficits patient seems to have forgotten about previous admission for same problem with his kidneys. But when probed further he states that he believes that he did have kidney problems. This is consistent with forgetfulness and senile dementia which was previously reported Psych: calm, and cooperative - Constitutional Vitals: Temp Pulse Resp BP Pulse Ox 98.8 F 76 18 138/78 98 11/26/18 13:24 11/26/18 14:32 11/26/18 13:24 11/26/18 14:32 11/26/18 13:24 Results - Labs CBC & Chem 7: 11/25/18 17:05 11/27/18 04:20 Labs: Laboratory Last Values WBC 6.4 K/mm3 (4.5-11.0) 11/25/18 17:05 RBC 3.38 M/mm3 (3.65-5.03) L 11/25/18 17:05 Hgb 10.4 gm/dl (11.8-15.2) L 11/25/18 17:05 Hct 31.2 % (35.5-45.6) L 11/25/18 17:05 MCV 92 fl (84-94) 11/25/18 17:05 MCH 31 pg (28-32) 11/25/18 17:05 MCHC 33 % (32-34) 11/25/18 17:05 RDW 16.3 % (13.2-15.2) H 11/25/18 17:05 Plt Count 166 K/mm3 (140-440) 11/25/18 17:05 Lymph % (Auto) 14.0 % (13.4-35.0) 11/25/18 17:05 [place] % (Auto) 4.7 % (0.0-7.3) 11/25/18 17:05 Eos % (Auto) 7.4 % (0.0-4.3) H 11/25/18 17:05 Baso % (Auto) 0.4 % (0.0-1.8) 11/25/18 17:05 Lymph # 0.9 K/mm3 (1.2-5.4) L 11/25/18 17:05 [place] # 0.3 K/mm3 (0.0-0.8) 11/25/18 17:05 Eos # 0.5 K/mm3 (0.0-0.4) H 11/25/18 17:05 Baso # 0.0 K/mm3 (0.0-0.1) 11/25/18 17:05 Seg Neutrophils % 73.5 % (40.0-70.0) H 11/25/18 17:05 Seg Neutrophils # 4.7 K/mm3 (1.8-7.7) 11/25/18 17:05 VBG pH 7.374 (7.320-7.420) 11/25/18 17:05 Sodium 134 mmol/L (137-145) L 11/25/18 17:05 Potassium 3.9 mmol/L (3.6-5.0) 11/25/18 17:05 Chloride 98.4 mmol/L (98-107) 11/25/18 17:05 Carbon Dioxide 23 mmol/L (22-30) 11/25/18 17:05 17 mmol/L 11/25/18 17:05 BUN 30 mg/dL (9-20) H 11/25/18 17:05 5.2 mg/dL (0.8-1.5) H 11/25/18 17:05 Estimated GFR 13 ml/min 09/06/19 17:05 6 % 11/25/18 17:05 Glucose 233 mg/dL (75-100) H 11/25/18 17:05 POC Glucose 116 (70-105) H 11/26/18 12:11 Lactic Acid 1.50 mmol/L (0.7-2.0) 11/25/18 17:05 Calcium 8.8 mg/dL (8.4-10.2) 11/25/18 17:05 0.30 mg/dL (0.1-1.2) 11/25/18 17:05 AST 16 units/L (5-40) 11/25/18 17:05 ALT 7 units/L (7-56) 11/25/18 17:05 56 units/L (35-129) 11/25/18 17:05 164 units/L (55-170) 11/26/18 08:42 CK-MB (CK-2) 5.0 ng/mL (0.0-4.0) H 11/26/18 08:42 CK-MB (CK-2) Rel Index 3.0 (0-4) 11/26/18 08:42 0.167 ng/mL (0.00-0.029) H* 11/26/18 08:42 6.8 g/dL (6.3-8.2) 11/25/18 17:05 3.6 g/dL (3.9-5) L 11/25/18 17:05 1.1 % 11/25/18 17:05 Yellow (Yellow) 11/25/18 23:00 Clear (Clear) 11/25/18 23:00 8.0 (5.0-7.0) H 11/25/18 23:00 Ur Specific [place] 1.010 (1.003-1.030) 11/25/18 23:00 100 mg/dl mg/dL (Negative) 11/25/18 23:00 50 mg/dL (Negative) 11/25/18 23:00 Neg mg/dL (Negative) 11/25/18 23:00 Neg (Negative) 11/25/18 23:00 Neg (Negative) 11/25/18 23:00 Neg (Negative) 11/25/18 23:00 < 2.0 mg/dL (<2.0) 11/25/18 23:00 Ur Leukocyte Esterase Neg (Negative) 11/25/18 23:00 < 1.0 /HPF (0.0-6.0) 11/25/18 23:00 < 1.0 /HPF (0.0-6.0) 11/25/18 23:00 Salicylates < 0.3 mg/dL (2.8-20.0) L 11/25/18 17:05 Presumptive negative 11/25/18 23:00 Presumptive negative 11/25/18 23:00 Acetaminophen < 5.0 ug/mL (10.0-30.0) L 11/25/18 17:05 Ur Barbiturates Screen Presumptive negative 11/25/18 23:00 Ur Phencyclidine Scrn Presumptive negative 11/25/18 23:00 Ur Amphetamines Screen Presumptive negative 11/25/18 23:00 U Benzodiazepines Scrn Presumptive negative 11/25/18 23:00 Presumptive negative 11/25/18 23:00 U Marijuana (THC) Screen Presumptive negative 11/25/18 23:00 Disclamer 11/25/18 23:00 Plasma/Serum Alcohol < 0.01 % (0-0.07) 11/25/18 17:05 Active Medications - Current Medications Current Medications: Generic Name Dose Route Start Last Admin Trade Name Freq PRN Reason Stop Dose Admin Aspirin 325 mg 11/26/18 10:00 11/26/18 10:05 Aspirin PO 325 mg QDAY [facility] Administration Atorvastatin Calcium 40 mg 11/26/18 22:00 Lipitor PO QHS [facility] Dextrose 50 ml 11/25/18 23:02 D50w (25gm) Syringe IV PRN PRN Hypoglycemia Heparin Sodium (Porcine) 5,000 unit 11/25/18 23:00 11/26/18 10:05 Heparin SUB-Q 5,000 unit Q12HR [facility] Administration Hydralazine HCl 50 mg 11/26/18 06:00 11/26/18 14:32 Apresoline PO 50 mg Q8HR [facility] Administration Insulin Human Regular 0 units 11/26/18 07:30 11/26/18 12:30 Humulin R SUB-Q Not Given [facility] Protocol Insulin Human Regular 0 units 11/26/18 22:00 [facility] Nutrition/Malnutrition Assess - Dietary Evaluation Nutrition/Malnutrition Findings: Nutrition Notes Start: 11/26/18 10:13 Freq: Status: Active Protocol: Document 11/26/18 10:13 LM (Rec: 11/26/18 10:48 LM [id number]) Nutrition Notes Need for Assessment 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 Noticed pt did not eat breakfast. Pt stated he was going to eat his breakfast. Pt stated he has noticed he has lost wt but did not know how much or time frame of wt loss. Pt also did not know his UBW. Burn Absent Trauma Absent Minimum of two criteria No #1 Nutrition Diagnosis Predicted suboptimal energy intake Etiology Chronic illness, AMS As Evidenced by Signs and Symptoms Pt statement of having wt loss , pt not eating breakfast, BMI of 21.7 Is patient on ventilator? No Is Patient Ambulatory and/or Out of Bed Yes REE-([place]-ambulatory/OOB) [ 2000.375 NUTR.MSJOOB] Kcal/Kg value to use for calculation 35 Approximate Energy Requirements Using 2540 kcal/Kg Calculation Used for Recommendations Kcal/kg Additional Notes Protein needs: 73-94g (1-1.3 g /kg) Fluids: 1 ml/kcal or per MD Nutrition Intervention Change Diet Order: Consistent CHO/renal Goal #1 Meet at least 75% of energy and protein needs Anticipated Discharge Needs: Renal diet Follow-Up By: 11/28/18 Additional Comments F/U for PO intakes, need for ONS
--- NOTE | 2018-11-26 16:46 | XRay Report ---
CHEST 1 VIEW, 11/26/2018 4:06 PM INDICATION: Confusion. Altered mental status. COMPARISON: Chest radiograph, 11/20/2018 FINDINGS: SUPPORT DEVICES: None HEART: The cardiac silhouette is moderately enlarged. Pulmonary vascularity appears within normal house its. LUNGS/PLEURA: There is no focal airspace disease or significant pleural effusion. The previously note d nodule in the right midlung is not well visualized on today's study. ADDITIONAL FINDINGS: No additional acute findings. IMPRESSION: 1. Stable enlargement of the cardiac silhouette. Signer Name: Ema Barcenas MD Signed: 11/26/2018 4:41 PM Workstation Name: [id number]
[2018-11-26] MEDS: NACL 0.9% 1000 ML 1,000 ML IV SCH (17:52)
--- NOTE | 2018-11-27 05:37 | Consultation ---
CARDIOLOGY CONSULTATION REPORT REFERRING PHYSICIAN: Iván Montana MD, hospitalist. SE[facility] Dear Dr. Montana, Thanks for this consult. HISTORY OF PRESENT ILLNESS: A 68-year-old pleasant -[place] gentleman with a history of multiple medical problems of hypertension, hypercholesterolemia, end-stage renal disease who was admitted with a history of altered mental status yesterday evening. The patient was apparently found unresponsive at home. When EMS went there, he started talking, but he was confused. He did not have any weakness of the arm or leg. He did not have any difficulty in swallowing or difficulty in speaking. Gradually, his mental status improved and when I was talking to him, he was totally alert and oriented x 3. His troponins were minimally increased to 0.151 and 0.167. This is most likely secondary to his chronic kidney disease. He also had hyperglycemia with a glucose of 221 and most recent glucose level is 116 (he is not a known diabetic). Internal jugular Perm-A-Cath was placed by Vascular Surgery for hemodialysis. The patient did not have any chest pain or shortness of breath. No history of nausea, vomiting or palpitations. The patient was discharged to home after detailed neurological workup yesterday morning. His carotid Doppler done on 11/20/2018 revealed mild disease (20-30%) bilaterally. His echocardiogram done on 11/20/2018 revealed LVEF of 50-55%, grade 1 diastolic left ventricular dysfunction, severe left atrial enlargement, [id number] aortic stenosis with mean gradient of 27 mmHg and aortic valve area of 1.73 cm2 and [id number] aortic regurgitation. Mild mitral regurgitation was also seen. His urine drug screen was negative. His chest x-ray revealed small nodule in the right lower lobe region. 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 PAST MEDICAL HISTORY: History of multiple medical problems as described above, history of recent admission in this hospital, discharged on 11/25/2018. No history of CAD or myocardial infarction in the past. SOCIAL HISTORY: Not a smoker, not an alcoholic, no history of drug abuse. FAMILY HISTORY: Negative for premature coronary artery disease. ADDENDUM: The patient was diagnosed as having had a minor stroke. MEDICATIONS: Aspirin 325 mg p.o. daily, atorvastatin 40 mg p.o. daily, subcutaneous heparin 5000 units b.i.d., hydralazine 50 mg p.o. 3 times daily, regular human insulin as per sliding scale. REVIEW OF SYSTEMS: CARDIOVASCULAR: As described in the history. RENAL: As described in the history. PULMONARY: Negative. NEUROLOGICAL: As described in the history. BONE AND JOINTS: Negative. HEMATOPOIETIC SYSTEM: Mild anemia. METABOLISM AND ENDOCRINOLOGY: Hyperglycemia during this admission. Review of rest of the 10 systems is negative. PHYSICAL EXAMINATION: GENERAL: A 68-year-old pleasant -[place] gentleman, alert and oriented x 3. VITAL SIGNS: He is afebrile, pulse 80 per minute and regular, respirations 16 per minute, blood pressure 129/75 mmHg. NECK: Supple, no JVD, no bruit, no thyromegaly. HEART: PMI shifted laterally and is heaving in nature, no palpable thrills. Auscultation of heart reveals S1, S2 heard. Grade 3/6 harsh ejection systolic murmur is heard, more prominently over the base and also close to the left lower border of the sternum. Same murmur is heard over the apex and also over the carotids. No gallops. No rub. EXTREMITIES: Peripheral pulses felt. No edema. LUNGS: Bilateral air entry good and equal. No bronchial breathing. No wheezing. ABDOMEN: Soft, benign. No organomegaly. SKIN: Negative. BONE AND JOINTS: Negative. LABORATORY DATA: WBC, platelet count normal. Hemoglobin and hematocrit 10.4 and 31.2 respectively. BUN 30, creatinine 5.2, sodium 134, potassium 3.9, chloride 98, CO2 23. Serum troponins mildly increased at 0.151 and 0.167. Chest x-ray findings as described above. EKG, normal sinus rhythm, left ventricular hypertrophy with repolarization changes, possible inferolateral ischemia. Echocardiogram findings as described in the history. IMPRESSION: 1. Altered mental status that is improved now -- the patient has had a minor stroke. 2. History of hypertension and hypercholesterolemia. 3. [id number] aortic stenosis and [id number]-vj-brhioryh aortic regurgitation by echocardiogram with low normal left ventricular systolic function and evidence of grade 1 diastolic left ventricular dysfunction. 4. End-stage renal disease, awaiting hemodialysis. 5. Mild hyperglycemia of new onset that is improving. 6. Mild anemia. RECOMMENDATIONS: 1. To continue present management. 2. Follow up with contract loader. 3. We will continue to follow. Thanking again. Yours Sincerely, JOB# [id number] STEPHANIE/VINAY KEMP
[2018-11-27 06:09] LABS: Calcium 8.9 mg/dL (8.4-10.2)
[2018-11-27] MEDS: NACL 0.9% 1000 ML 1,000 ML IV SCH (06:47)
[2018-11-27] MEDS: APRESOLINE PO SCH ×3 (06:49→22:32)
[2018-11-27] MEDS: HumuLIN R SUB-Q SCH ×4 (08:30→21:17)
--- NOTE | 2018-11-27 10:52 | Progress Note ---
Assessment and Plan - Patient Problems (1) RUTH (acute kidney injury) Current Visit: No Status: Acute Plan to address problem: Patient may well have chronic kidney disease that has progressed to end-stage renal disease. Kidney indices are worsening. We need to resume dialysis on Wednesday and arrange for placement at the outpatient dialysis clinic. Consult vascular for permacath placement tomorrow (2) Chronic kidney disease, unspecified Current Visit: Yes Status: Acute Plan to address problem: Chronic kidney disease presumably secondary to hypertensive nephrosclerosis. Stage unknown. It appears patient may well have chronic kidney disease which santiago s progressed to stage V. (3) Hypertensive chronic kidney disease with stage 1 through stage 4 chronic kidney disease, or unspecified chronic kidney disease Current Visit: Yes Status: Acute Plan to address problem: Follow blood pressure on current medications (4) Anemia in chronic kidney disease Current Visit: Yes Status: Acute Plan to address problem: Follow-up hemoglobin (5) CVA (cerebral vascular accident) Current Visit: No Status: Acute Plan to address problem: Old cerebrovascular accidents. Needs good blood pressure control (6) Encephalopathy Current Visit: No Status: Acute Plan to address problem: Mental status has improved back to baseline. (7) Type 2 diabetes mellitus with diabetic nephropathy Current Visit: Yes Status: Acute Plan to address problem: Follow-up blood sugar off of medications Subjective Date of service: 11/27/18 Principal diagnosis: ? CKD progressing to end-stage renal disease Interval history: Patient seen lying in bed. He has no complaints. No nausea or vomiting. No shortness of breath or chest pain Objective - Exam Narrative Exam: Elderly male lying in bed in no acute distress HEENT: NCAT, pink oral mucous membrane Neck: Supple, no venous distention CVS: S1S2 RRR with systolic murmur, No rub or gallop Chest: Clear to auscultation Abdomen: Protuberant, soft, nontender, no organomegaly, bowel sounds are present Extremities: No edema Genitourinary deferred Skin warm and dry, no rash Neuro: Awake, alert no focal deficits - Vital Signs Vital signs: Vital Signs - 12hr 11/26/18 11/27/18 11/27/18 23:08 02:23 06:49 Temperature 98.8 F Pulse Rate 89 41 L 41 L Respiratory 18 Rate Blood Pressure 112/61 149/64 148/64 O2 Sat by Pulse 98 Oximetry 11/27/18 11/27/18 07:46 08:03 Temperature 97.9 F Pulse Rate 74 Respiratory 18 20 Rate Blood Pressure 148/51 O2 Sat by Pulse 100 Oximetry - Lab 11/25/18 17:05 11/27/18 04:20 Most recent lab results Calcium 8.9 mg/dL (8.4-10.2) 11/27/18 04:20 Medications & Allergies - Medications Allergies/Adverse Reactions: Allergies No Known Allergies Allergy (Unverified 11/20/18 16:31) Home Medications: Home Medications Medication Instructions Recorded Confirmed Last Taken Type Aspirin 325 mg PO QDAY #30 tablet 11/24/18 Unknown Rx AtorvaSTATin [Lipitor] 40 mg PO QHS #30 tablet 11/24/18 Unknown Rx hydrALAZINE [Apresoline TAB] 50 mg PO Q8HR #120 tablet 11/24/18 Unknown Rx Active Medications: Generic Name Dose Route Start Last Admin Trade Name Freq PRN Reason Stop Dose Admin Aspirin 325 mg 11/26/18 10:00 11/26/18 10:05 Aspirin PO 325 mg QDAY BECKIE Administration Atorvastatin Calcium 40 mg 11/26/18 22:00 11/26/18 21:01 Lipitor PO 40 mg QHS BECKIE Administration Dextrose 50 ml 11/25/18 23:02 D50w (25gm) Syringe IV PRN PRN Hypoglycemia Heparin Sodium (Porcine) 5,000 unit 11/25/18 23:00 11/26/18 21:01 Heparin SUB-Q 5,000 unit Q12HR BECKIE Administration Hydralazine HCl 50 mg 11/26/18 06:00 11/27/18 06:49 Apresoline PO Not Given Q8HR BECKIE Sodium Chloride 1,000 mls @ 75 mls/hr 11/26/18 17:00 11/27/18 06:47 Nacl 0.9% 1000 Ml IV 75 mls/hr DIRECT BECKIE Administration Insulin Human Regular 0 units 11/26/18 07:30 11/26/18 17:00 Humulin R SUB-Q Not Given AC [facility] Protocol Insulin Human Regular 0 units 11/26/18 22:00 11/26/18 23:08 Humulin R SUB-Q Not Given QHS [facility] Protocol
[2018-11-27] MEDS: HEPARIN SUB-Q SCH ×2 (10:53→22:32)
[2018-11-27] MEDS: ASPIRIN PO SCH (10:53)
[2018-11-27] MEDS ORDERED: NACL 0.9% 100 ML IV PRN (10:57)
--- NOTE | 2018-11-27 12:15 | Event Note ---
Date: 11/27/[address] Mar for permcath placement. NPO after MN. Plan for permcath tomorrow.
--- NOTE | 2018-11-27 13:30 | Consultation ---
History of Present Illness - Reason for Consult Consult date: 11/28/18 Permcath - History of Present Illness 68-year-old male just discharged a couple of days ago. He was admitted with altered mental status. Was found confused at home. Blood sugar was 221 mg/dL. CT of the head did not show any acute stroke but he does have evidence of old cerebrovascular accidents. BUN/Creatinine were found to be quite elevated at 47/7.4 mg/dL. Patient received a couple of dialysis treatments and was discharged home without a dialysis catheter with plan for early follow-up in the office. Patient presents now because of confusion again at home. He has no recollection of what happened or how he got to the hospital. He felt he was doing well but does not know how he ended up back in the hospital. Apparently his friend found him confused and called the ambulance. BUN/creatinine are 30/5.2 mg/dL not significantly changed from his numbers on discharge. Vascular consultation for PermCath placement. Explained differences between peritoneal and hemodialysis. Explained difference between fistula graft. Discussed avoiding venipuncture, IV, or blood pressure cuff of left upper extremity. Past History Past Medical History: anemia, diabetes, hypertension, renal failure Past Surgical History: Other (Dialysis catheter placement) Social history: single, lives with family (lives with a lady friend), alcohol abuse (social), other (originally from [facility]. 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 denies: smoking, prescription drug abuse, IV drug use Family history: no significant family history, other (does not know the cause of of his parents 3 brothers and 2 sisters. One sibling is alive and he believes is in good health) Medications and Allergies Allergies Allergy/AdvReac Type Severity Reaction Status Date / Time No Known Allergies Allergy Unverified 11/20/18 16:31 Home Medications Medication Instructions Recorded Confirmed Last Taken Type Aspirin 325 mg PO QDAY #30 tablet 11/24/18 Unknown Rx AtorvaSTATin [Lipitor] 40 mg PO QHS #30 tablet 11/24/18 Unknown Rx hydrALAZINE [Apresoline TAB] 50 mg PO Q8HR #120 tablet 11/24/18 Unknown Rx Active Meds: Active Medications Aspirin (Aspirin) 325 mg PO QDAY BECKIE Last Admin: 11/27/18 10:53 Dose: 325 mg Documented by: Atorvastatin Calcium (Lipitor) 40 mg PO QHS BECKIE Last Admin: 11/26/18 21:01 Dose: 40 mg Documented by: Dextrose (D50w (25gm) Syringe) 50 ml IV PRN PRN PRN Reason: Hypoglycemia Epoetin Blayne (Procrit) 10,000 unit IV NINO PRN PRN Reason: hemodialysis Heparin Sodium (Porcine) (Heparin) 5,000 unit SUB-Q Q12HR BECKIE Last Admin: 11/27/18 10:53 Dose: 5,000 unit Documented by: Hydralazine HCl (Apresoline) 50 mg PO Q8HR BECKIE Last Admin: 11/27/18 06:49 Dose: Not Given Documented by: Sodium Chloride (Nacl 0.9% 1000 Ml) 1,000 mls @ 75 mls/hr IV DIRECT BECKIE Last Admin: 11/27/18 06:47 Dose: 75 mls/hr Documented by: Sodium Chloride (Nacl 0.9%) 100 mls @ 999 mls/hr IV NINO PRN PRN Reason: Hypotension Insulin Human Regular (Humulin R) 0 units SUB-Q [facility]; Protocol Last Admin: 11/27/18 08:30 Dose: Not Given Documented by: [facility]ulin Human Regular ([facility]) [facility]; Protocol Last Admin: 11/26/18 23:08 Dose: Not Given Documented by: Review of Systems All systems: negative (see HPI) Exam - Constitutional Vitals: Temp Pulse Resp BP Pulse Ox 97.9 F 74 20 148/51 100 11/27/18 07:46 11/27/18 07:46 11/27/18 08:03 11/27/18 07:46 11/27/18 07:46 General appearance: Present: no acute distress - EENT Eyes: Present: EOM intact ENT: hearing intact - Respiratory Respiratory effort: normal - Extremities Extremities: normal temperature, normal color - Psychiatric Psychiatric: appropriate mood/affect, cooperative Results - Labs CBC & Chem 7: 11/25/18 17:05 11/27/18 04:20 Labs: Abnormal lab results 11/26/18 11/27/18 Range/Units 16:41 04:20 BUN 37 H (9-20) mg/dL Creatinine 6.4 H (0.8-1.5) mg/dL POC Glucose 122 H (70-105) Assessment and Plan 68-year-old male with end-stage renal seeing who requires hemodialysis access. Ordered vein mapping. Avoid left upper extremity for IVs, venipunctures, and blood pressure cuff. Discussed with patient. Plan for PermCath placement tomorrow.
--- NOTE | 2018-11-27 15:34 | Progress Note ---
Assessment and Plan The patient's cardiac status is stable. Continue current management. Nephrology recommendations noted. Patient to undergo permanent dialysis catheter placement on 11/28/18 f/b dialysis as managed by nephrology. The patient has been seen in conjunction with Dr. Dickson, who agrees with the assessment and plan. - Patient Problems (1) ESRD (end stage renal disease) Current Visit: Yes Status: Acute Plan to address problem: Dialysis to be initiated this week (2) Anemia in chronic kidney disease Current Visit: Yes Status: Chronic (3) Altered mental state Current Visit: Yes Status: Resolved Qualifiers: Altered mental status type: unspecified Qualified Code(s): R41.82 - Altered mental status, unspecified (4) Elevated troponin I level Current Visit: Yes Status: Acute Plan to address problem: Type II (5) Type 2 diabetes mellitus with diabetic nephropathy Current Visit: Yes Status: Chronic (6) Hypertension Current Visit: Yes Status: Chronic Subjective Date of service: 11/27/18 Principal diagnosis: ? CKD progressing to end-stage renal disease Interval history: Patient is lying in bed in NAD. No cardiac complaints. Telemetry reviewed - SR in 80s. Objective Last Vital Signs Temp 97.9 F 11/27/18 07:46 Pulse 81 11/27/18 13:52 Resp 20 11/27/18 08:03 BP 135/81 11/27/18 13:52 Pulse Ox 98 11/27/18 13:52 - Physical Examination General: No Apparent Distress HEENT: Positive: PERRL Neck: Positive: neck supple Cardiac: Positive: Reg Rate and Rhythm Lungs: Positive: Normal Exam Neuro: Positive: Grossly Intact Abdomen: Positive: Unremarkable /Rectal: Other (deferred) Skin: Positive: Clear Musculoskeletal: No Pain Extremities: Present: normal - Labs and Meds Comprehensive Metabolic Panel 11/27/18 Range/Units 04:20 Sodium 138 (137-145) mmol/L Potassium 3.6 (3.6-5.0) mmol/L Chloride 101.8 (98-107) mmol/L Carbon Dioxide 25 (22-30) mmol/L BUN 37 H (9-20) mg/dL Creatinine 6.4 H (0.8-1.5) mg/dL Glucose 83 (75-100) mg/dL Calcium 8.9 (8.4-10.2) mg/dL - Imaging and Cardiology Echo: report reviewed (11/20/18: EF 50-55%, grade 1 LV diastolic dysfunction, severe LAE, mild-mod , mild-mod TR, mild MR) - Telemetry EKG Rhythm: Sinus Rhythm
[2018-11-27] MEDS: TYLENOL PO PRN (17:14)
--- NOTE | 2018-11-27 17:54 | Progress Note ---
Assessment and Plan Assessment and plan: 68-year-old man with known stage V chronic kidney disease who was brought to the hospital for decreased responsiveness. CKD stage V progressing to end-stage renal disease Nephrology input appreciated,Kidney function is worsening. For Vas-Cath tomorrow followed by dialysis. Acute metabolic encephalopathy due to uremia Patient is planned for dialysis, Mentation is improving Senile dementia Patient is forgetful, and does not remember previous admission for the same indication. Continue supportive care DVT prophylaxis heparin . History Interval history: Denies chest pain denies shortness of breath. Complaining of generalized w eakness. Dizziness is resolving. He states that his head feels foggy. Denies abdominal pain nausea or vomiting Hospitalist Physical - Physical exam Narrative exam: 68-year-old man with history of dementia, chronic kidney disease stage V general.: Appears well, no distress, nontoxic HEENT: Moist mucous membranes, extraocular muscles intact, no lymphadenopathy Neck: supple Cardiac: S1-S2 heard Lungs: clear to auscultation bilaterally Abdomen: soft , nontender, nondistended, bowel sounds positive Extremities: no edema clubbing or cyanosis Skin: no rash or lesions Neurologic: no gross focal deficits patient seems to have forgotten about previous admission for same problem with his kidneys. But when probed further he states that he believes that he did have kidney problems. This is consistent with forgetfulness and senile dementia which was previously reported Psych: calm, and cooperative - Constitutional Vitals: Temp Pulse Resp BP Pulse Ox 97.9 F 81 20 135/81 98 11/27/18 07:46 11/27/18 15:00 11/27/18 17:14 11/27/18 15:00 11/27/18 13:52 Results - Labs CBC & Chem 7: 11/25/18 17:05 11/27/18 04:20 Labs: Laboratory Last Values WBC 6.4 K/mm3 (4.5-11.0) 11/25/18 17:05 RBC 3.38 M/mm3 (3.65-5.03) L 11/25/18 17:05 Hgb 10.4 gm/dl (11.8-15.2) L 11/25/18 17:05 Hct 31.2 % (35.5-45.6) L 11/25/18 17:05 MCV 92 fl (84-94) 11/25/18 17:05 MCH 31 pg (28-32) 11/25/18 17:05 MCHC 33 % (32-34) 11/25/18 17:05 RDW 16.3 % (13.2-15.2) H 11/25/18 17:05 Plt Count 166 K/mm3 (140-440) 11/25/18 17:05 Lymph % (Auto) 14.0 % (13.4-35.0) 11/25/18 17:05 [place] % (Auto) 4.7 % (0.0-7.3) 11/25/18 17:05 Eos % (Auto) 7.4 % (0.0-4.3) H 11/25/18 17:05 Baso % (Auto) 0.4 % (0.0-1.8) 11/25/18 17:05 Lymph # 0.9 K/mm3 (1.2-5.4) L 11/25/18 17:05 [place] # 0.3 K/mm3 (0.0-0.8) 11/25/18 17:05 Eos # 0.5 K/mm3 (0.0-0.4) H 11/25/18 17:05 Baso # 0.0 K/mm3 (0.0-0.1) 11/25/18 17:05 Seg Neutrophils % 73.5 % (40.0-70.0) H 11/25/18 17:05 Seg Neutrophils # 4.7 K/mm3 (1.8-7.7) 11/25/18 17:05 VBG pH 7.374 (7.320-7.420) 11/25/18 17:05 Sodium 138 mmol/L (137-145) 11/27/18 04:20 Potassium 3.6 mmol/L (3.6-5.0) 11/27/18 04:20 Chloride 101.8 mmol/L (98-107) 11/27/18 04:20 Carbon Dioxide 25 mmol/L (22-30) 11/27/18 04:20 15 mmol/L 11/27/18 04:20 BUN 37 mg/dL (9-20) H 11/27/18 04:20 6.4 mg/dL (0.8-1.5) H 11/27/18 04:20 Estimated GFR 11 ml/min 11/27/18 04:20 6 % 11/27/18 04:20 Glucose 83 mg/dL (75-100) 11/27/18 04:20 POC Glucose 106 (70-105) H 11/27/18 16:31 4.7 % (4-6) 11/26/18 15:55 Lactic Acid 1.50 mmol/L (0.7-2.0) 11/25/18 17:05 Calcium 8.9 mg/dL (8.4-10.2) 11/27/18 04:20 0.30 mg/dL (0.1-1.2) 11/25/18 17:05 AST 16 units/L (5-40) 11/25/18 17:05 ALT 7 units/L (7-56) 11/25/18 17:05 56 units/L (35-129) 11/25/18 17:05 164 units/L (55-170) 11/26/18 08:42 CK-MB (CK-2) 5.0 ng/mL (0.0-4.0) H 11/26/18 08:42 CK-MB (CK-2) Rel Index 3.0 (0-4) 11/26/18 08:42 0.167 ng/mL (0.00-0.029) H* 11/26/18 08:42 6.8 g/dL (6.3-8.2) 11/25/18 17:05 3.6 g/dL (3.9-5) L 11/25/18 17:05 1.1 % 11/25/18 17:05 Yellow (Yellow) 11/25/18 23:00 Clear (Clear) 11/25/18 23:00 8.0 (5.0-7.0) H 11/25/18 23:00 Ur Specific [place] 1.010 (1.003-1.030) 11/25/18 23:00 100 mg/dl mg/dL (Negative) 11/25/18 23:00 50 mg/dL (Negative) 11/25/18 23:00 Neg mg/dL (Negative) 11/25/18 23:00 Neg (Negative) 11/25/18 23:00 Neg (Negative) 11/25/18 23:00 Neg (Negative) 11/25/18 23:00 < 2.0 mg/dL (<2.0) 11/25/18 23:00 Ur Leukocyte Esterase Neg (Negative) 11/25/18 23:00 < 1.0 /HPF (0.0-6.0) 11/25/18 23:00 < 1.0 /HPF (0.0-6.0) 11/25/18 23:00 Salicylates < 0.3 mg/dL (2.8-20.0) L 11/25/18 17:05 Presumptive negative 11/25/18 23:00 Presumptive negative 11/25/18 23:00 Acetaminophen < 5.0 ug/mL (10.0-30.0) L 11/25/18 17:05 Ur Barbiturates Screen Presumptive negative 11/25/18 23:00 Ur Phencyclidine Scrn Presumptive negative 11/25/18 23:00 Ur Amphetamines Screen Presumptive negative 11/25/18 23:00 U Benzodiazepines Scrn Presumptive negative 11/25/18 23:00 Presumptive negative 11/25/18 23:00 U Marijuana (THC) Screen Presumptive negative 11/25/18 23:00 Disclamer 11/25/18 23:00 Plasma/Serum Alcohol < 0.01 % (0-0.07) 11/25/18 17:05 Active Medications - Current Medications Current Medications: Generic Name Dose Route Start Last Admin Trade Name Freq PRN Reason Stop Dose Admin Acetaminophen 650 mg 11/27/18 16:36 11/27/18 17:14 Tylenol PO 650 mg Q4H PRN Administration Pain, Mild (1-3) Aspirin 325 mg 11/26/18 10:00 11/27/18 10:53 Aspirin PO 325 mg QDAY BECKIE Administration Atorvastatin Calcium 40 mg 11/26/18 22:00 11/26/18 21:01 Lipitor PO 40 mg QHS BECKIE Administration Dextrose 50 ml 11/25/18 23:02 D50w (25gm) Syringe IV PRN PRN Hypoglycemia Epoetin Blayne 10,000 unit 11/27/18 10:57 Procrit IV NINO PRN hemodialysis Heparin Sodium (Porcine) 5,000 unit 11/25/18 23:00 11/27/18 10:53 Heparin SUB-Q 5,000 unit Q12HR BECKIE Administration Hydralazine HCl 50 mg 11/26/18 06:00 11/27/18 15:00 Apresoline PO 50 mg Q8HR BECKIE Administration Sodium Chloride 1,000 mls @ 75 mls/hr 11/26/18 17:00 11/27/18 06:47 Nacl 0.9% 1000 Ml IV 75 mls/hr DIRECT BECKIE Administration Sodium Chloride 100 mls @ 999 mls/hr 11/27/18 10:57 Nacl 0.9% IV NINO PRN Hypotension Insulin Human Regular 0 units 11/26/18 07:30 11/27/18 17:16 Humulin R SUB-Q Not Given AC [facility] Protocol Insulin Human Regular 0 units 11/26/18 22:00 11/26/18 23:08 Humulin R SUB-Q Not Given QHS [facility] Protocol Nutrition/Malnutrition Assess - Dietary Evaluation Nutrition/Malnutrition Findings: Nutrition Notes Start: 11/26/18 10:13 Freq: Status: Active Protocol: Document 11/26/18 10:13 LM (Rec: 11/26/18 10:48 LM [email or web address]) Nutrition Notes Need for Assessment generated from: cyber incident analyst,MST Initial or Follow up Assessment Current Diagnosis Acute Kidney Injury, Hypertension,Stroke Other Pertinent Diagnosis AMS Current Diet Consistent CHO/low sodium Labs/Tests Na 134 BUN 30 Cr 4.2 BG 233 Pertinent Medications Reviewed Height 6 ft Weight 72.575 kg [place] Body Weight (kg) 80.90 BMI 21.7 Subjective/Other Information RN screen for MST. 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 Noticed pt did not eat breakfast. Pt stated he was going to eat his breakfast. Pt stated he has noticed he has lost wt but did not know how much or time frame of wt loss. Pt also did not know his UBW. Burn Absent Trauma Absent Minimum of two criteria No #1 Nutrition Diagnosis Predicted suboptimal energy intake Etiology Chronic illness, AMS As Evidenced by Signs and Symptoms Pt statement of having wt loss , pt not eating breakfast, BMI of 21.7 Is patient on ventilator? No Is Patient Ambulatory and/or Out of Bed Yes REE-([place]-ambulatory/OOB) [ 2000.375 NUTR.[id number]] Kcal/Kg value to use for calculation 35 Approximate Energy Requirements Using 2540 kcal/Kg Calculation Used for Recommendations Kcal/kg Additional Notes Protein needs: 73-94g (1-1.3 g /kg) Fluids: 1 ml/kcal or per MD Nutrition Intervention Change Diet Order: Consistent CHO/renal Goal #1 Meet at least 75% of energy and protein needs Anticipated Discharge Needs: Renal diet Follow-Up By: 11/28/18 Additional Comments F/U for PO intakes, need for ONS
[2018-11-27] MEDS ORDERED: SENOKOT S PO PRN (19:04)
[2018-11-27] MEDS ORDERED: GLYCERIN ADULT 2 GM PR PRN (19:04)
[2018-11-27] MEDS ORDERED: MIRALAX 3350 PO PRN (19:04)
[2018-11-28] MEDS: APRESOLINE PO SCH ×3 (05:36→22:19)
[2018-11-28] MEDS: HumuLIN R SUB-Q SCH ×4 (07:30→22:11)
--- NOTE | 2018-11-28 07:36 | Progress Note ---
Assessment and Plan Assessment and plan: 68-year-old man with known stage V chronic kidney disease who was brought to the hospital for decreased responsiveness. CKD stage V progressing to end-stage renal disease Nephrology input appreciated,Kidney function is worsening. For Vas-Cath Today followed by dialysis. Acute metabolic encephalopathy due to uremia Patient is planned for dialysis, Mentation is improving Senile dementia Patient is forgetful, and does not remember previous admission for the same indication. Continue supportive care DVT prophylaxis heparin .Disposition will need dialysis chair time set up prior to discharge History Interval history: Denies chest pain denies shortness of breath. Complaining of generalized weakness. Dizziness is resolving. He states that his head feels foggy. Denies abdominal pain nausea or vomiting Hospitalist Physical - Physical exam Narrative exam: 68-year-old man with history of dementia, chronic kidney disease stage V general.: Appears well, no distress, nontoxic HEENT: Moist mucous membranes, extraocular muscles intact, no lymphadenopathy Neck: supple Cardiac: S1-S2 heard Lungs: clear to auscultation bilaterally Abdomen: soft , nontender, nondistended, bowel sounds positive Extremities: no edema clubbing or cyanosis Skin: no rash or lesions Neurologic: no gross focal deficits patient seems to have forgotten about previous admission for same problem with his kidneys. But when probed further he states that he believes that he did have kidney problems. This is consistent with forgetfulness and senile dementia which was previously reported Psych: calm, and cooperative - Constitutional Vitals: Temp Pulse Resp BP Pulse Ox 98.1 F 73 20 136/73 98 11/28/18 07:08 11/28/18 07:08 11/28/18 07:08 11/28/18 07:08 11/28/18 07:08 Results - Labs CBC & Chem 7: 11/25/18 17:05 11/27/18 04:20 Labs: Laboratory Last Values WBC 6.4 K/mm3 (4.5-11.0) 11/25/18 17:05 RBC 3.38 M/mm3 (3.65-5.03) L 11/25/18 17:05 Hgb 10.4 gm/dl (11.8-15.2) L 11/25/18 17:05 Hct 31.2 % (35.5-45.6) L 11/25/18 17:05 MCV 92 fl (84-94) 11/25/18 17:05 MCH 31 pg (28-32) 11/25/18 17:05 MCHC 33 % (32-34) 11/25/18 17:05 RDW 16.3 % (13.2-15.2) H 11/25/18 17:05 Plt Count 166 K/mm3 (140-440) 11/25/18 17:05 Lymph % (Auto) 14.0 % (13.4-35.0) 11/25/18 17:05 Ogle % (Auto) 4.7 % (0.0-7.3) 11/25/18 17:05 Eos % (Auto) 7.4 % (0.0-4.3) H 11/25/18 17:05 Baso % (Auto) 0.4 % (0.0-1.8) 11/25/18 17:05 Lymph # 0.9 K/mm3 (1.2-5.4) L 11/25/18 17:05 Ogle # 0.3 K/mm3 (0.0-0.8) 11/25/18 17:05 Eos # 0.5 K/mm3 (0.0-0.4) H 11/25/18 17:05 Baso # 0.0 K/mm3 (0.0-0.1) 11/25/18 17:05 Seg Neutrophils % 73.5 % (40.0-70.0) H 11/25/18 17:05 Seg Neutrophils # 4.7 K/mm3 (1.8-7.7) 11/25/18 17:05 VBG pH 7.374 (7.320-7.420) 11/25/18 17:05 Sodium 138 mmol/L (137-145) 11/27/18 04:20 Potassium 3.6 mmol/L (3.6-5.0) 11/27/18 04:20 Chloride 101.8 mmol/L (98-107) 11/27/18 04:20 Carbon Dioxide 25 mmol/L (22-30) 11/27/18 04:20 15 mmol/L 11/27/18 04:20 BUN 37 mg/dL (9-20) H 11/27/18 04:20 6.4 mg/dL (0.8-1.5) H 11/27/18 04:20 Estimated GFR 11 ml/min 11/27/18 04:20 6 % 11/27/18 04:20 Glucose 83 mg/dL (75-100) 11/27/18 04:20 POC Glucose 83 (70-105) 11/28/18 07:17 4.7 % (4-6) 11/26/18 15:55 Lactic Acid 1.50 mmol/L (0.7-2.0) 11/25/18 17:05 Calcium 8.9 mg/dL (8.4-10.2) 11/27/18 04:20 0.30 mg/dL (0.1-1.2) 11/25/18 17:05 AST 16 units/L (5-40) 11/25/18 17:05 ALT 7 units/L (7-56) 11/25/18 17:05 56 units/L (35-129) 11/25/18 17:05 164 units/L (55-170) 11/26/18 08:42 CK-MB (CK-2) 5.0 ng/mL (0.0-4.0) H 11/26/18 08:42 CK-MB (CK-2) Rel Index 3.0 (0-4) 11/26/18 08:42 0.167 ng/mL (0.00-0.029) H* 11/26/18 08:42 6.8 g/dL (6.3-8.2) 11/25/18 17:05 3.6 g/dL (3.9-5) L 11/25/18 17:05 1.1 % 11/25/18 17:05 Yellow (Yellow) 11/25/18 23:00 Clear (Clear) 11/25/18 23:00 8.0 (5.0-7.0) H 11/25/18 23:00 Ur Specific [place] 1.010 (1.003-1.030) 11/25/18 23:00 100 mg/dl mg/dL (Negative) 11/25/18 23:00 50 mg/dL (Negative) 11/25/18 23:00 Neg mg/dL (Negative) 11/25/18 23:00 Neg (Negative) 11/25/18 23:00 Neg (Negative) 11/25/18 23:00 Neg (Negative) 11/25/18 23:00 < 2.0 mg/dL (<2.0) 11/25/18 23:00 Ur Leukocyte Esterase Neg (Negative) 11/25/18 23:00 < 1.0 /HPF (0.0-6.0) 11/25/18 23:00 < 1.0 /HPF (0.0-6.0) 11/25/18 23:00 Salicylates < 0.3 mg/dL (2.8-20.0) L 11/25/18 17:05 Presumptive negative 11/25/18 23:00 Presumptive negative 11/25/18 23:00 Acetaminophen < 5.0 ug/mL (10.0-30.0) L 11/25/18 17:05 Ur Barbiturates Screen Presumptive negative 11/25/18 23:00 Ur Phencyclidine Scrn Presumptive negative 11/25/18 23:00 Ur Amphetamines Screen Presumptive negative 11/25/18 23:00 U Benzodiazepines Scrn Presumptive negative 11/25/18 23:00 Presumptive negative 11/25/18 23:00 U Marijuana (THC) Screen Presumptive negative 11/25/18 23:00 Disclamer 11/25/18 23:00 Plasma/Serum Alcohol < 0.01 % (0-0.07) 11/25/18 17:05 Active Medications - Current Medications Current Medications: Generic Name Dose Route Start Last Admin Trade Name Freq PRN Reason Stop Dose Admin Acetaminophen 650 mg 11/27/18 16:36 11/27/18 17:14 Tylenol PO 650 mg Q4H PRN Administration Pain, Mild (1-3) Aspirin 325 mg 11/26/18 10:00 11/27/18 10:53 Aspirin PO 325 mg QDAY BECKIE Administration Atorvastatin Calcium 40 mg 11/26/18 22:00 11/27/18 22:32 Lipitor PO 40 mg QHS BECKIE Administration Dextrose 50 ml 11/25/18 23:02 D50w (25gm) Syringe IV PRN PRN Hypoglycemia Epoetin Blayne 10,000 unit 11/27/18 10:57 Procrit IV NINO PRN hemodialysis Glycerin 1 supp 11/27/18 19:04 Glycerin Adult 2 Gm [place] QDAY PRN Constipation Heparin Sodium (Porcine) 5,000 unit 11/25/18 23:00 11/27/18 22:32 Heparin SUB-Q 5,000 unit Q12HR BECKIE Administration Hydralazine HCl 50 mg 11/26/18 06:00 11/28/18 05:36 Apresoline PO Not Given Q8HR BECKIE Sodium Chloride 1,000 mls @ 75 mls/hr 11/26/18 17:00 11/27/18 06:47 Nacl 0.9% 1000 Ml IV 75 mls/hr DIRECT BECKIE Administration Sodium Chloride 100 mls @ 999 mls/hr 11/27/18 10:57 Nacl 0.9% IV NINO PRN Hypotension Insulin Human Regular 0 units 11/26/18 07:30 11/27/18 17:16 Humulin R SUB-Q Not Given AC [facility] Protocol Insulin Human Regular 0 units 11/26/18 22:00 11/27/18 21:17 Humulin R SUB-Q Not Given QHS [facility] Protocol Polyethylene Glycol 17 gm 11/27/18 19:04 11/27/18 20:14 Miralax 3350 PO 17 gm BID PRN Administration Constipation Senna/Docusate Sodium 2 tab 11/27/18 19:04 Senokot S PO Q12H PRN Laxative Effect Nutrition/Malnutrition Assess - Dietary Evaluation Nutrition/Malnutrition Findings: Nutrition Notes Start: 11/26/18 10:13 Freq: Status: Active Protocol: Document 11/26/18 10:13 LM (Rec: 11/26/18 10:48 LM [id number]) Nutrition Notes 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 Noticed pt did not eat breakfast. Pt stated he was going to eat his breakfast. Pt stated he has noticed he has lost wt but did not know how much or time frame of wt loss. Pt also did not know his UBW. Burn Absent Trauma Absent Minimum of two criteria No #1 Nutrition Diagnosis Predicted suboptimal energy intake Etiology Chronic illness, AMS As Evidenced by Signs and Symptoms Pt statement of having wt loss , pt not eating breakfast, BMI of 21.7 Is patient on ventilator? No Is Patient Ambulatory and/or Out of Bed Yes REE-([place]-St. Jeor-ambulatory/OOB) [ 2000.375 NUTR.MSJOOB] Kcal/Kg value to use for calculation 35 Approximate Energy Requirements Using 2540 kcal/Kg Calculation Used for Recommendations Kcal/kg Additional Notes Protein needs: 73-94g (1-1.3 g /kg) Fluids: 1 ml/kcal or per MD Nutrition Intervention Change Diet Order: Consistent CHO/renal Goal #1 Meet at least 75% of energy and protein needs Anticipated Discharge Needs: Renal diet Follow-Up By: 11/28/18 Additional Comments F/U for PO intakes, need for ONS
--- NOTE | 2018-11-28 07:53 | Progress Note ---
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 Will plan for permcath placement at this time, and also work on outpatient HD placement. (2) Hypertensive chronic kidney disease with stage 1 through stage 4 chronic kidney disease, or unspecified chronic kidney disease Current Visit: Yes Status: Chronic Plan to address problem: Continue on current regimen and closely monitor. (3) Type 2 diabetes mellitus with diabetic nephropathy Current Visit: Yes Status: Chronic Plan to address problem: DM management per primary attending. (4) Anemia in chronic illness Current Visit: Yes Status: Acute Plan to address problem: Monitor [facility] with HD to maintain within goal of 10-11.5. (5) Encephalopathy Current Visit: No Status: Acute Plan to address problem: Improved at this time back to baseline. Subjective Date of service: 11/28/18 Principal diagnosis: ? CKD progressing to end-stage renal disease Interval history: Pending permcath placement today. Plan for HD after procedure. Will work on outpatient placement. Objective - Vital Signs Vital signs: Vital Signs - 12hr 11/27/18 11/28/18 11/28/18 23:00 02:15 06:38 Temperature 98.8 F Pulse Rate 77 79 Pulse Rate [ 54 L Right Brachial] Respiratory 18 18 Rate Blood Pressure 136/65 O2 Sat by Pulse 94 96 Oximetry 11/28/18 07:08 Temperature 98.1 F Pulse Rate 73 Pulse Rate [ Right Brachial] Respiratory 20 Rate Blood Pressure 136/73 O2 Sat by Pulse 98 Oximetry - General Appearance General appearance: well-developed, well-nourished, appears stated age EENT: ATNC, PERRL Neck: no JVD, no thyromegaly Respiratory: Present: Clear to Ascultation, Normal Exam Cardiology: regular, S1S2 Gastrointestinal: normal, normoactive bowel sounds Integumentary: no rash, warm and dry Neurologic: no focal deficit, no asterixis, alert and oriented x3 Musculoskeletal: other (-edema ) Psychiatric: mood/affect appropriate, cooperative - Lab 11/25/18 17:05 11/27/18 04:20 Most recent lab results Calcium 8.9 mg/dL (8.4-10.2) 11/27/18 04:20 - Allied health notes Allied health notes reviewed: nursing Medications & Allergies - Medications Allergies/Adverse Reactions: Allergies No Known Allergies Allergy (Unverified 11/20/18 16:31) Home Medications: Home Medications Medication Instructions Recorded Confirmed Last Taken Type Aspirin 325 mg PO QDAY #30 tablet 11/24/18 Unknown Rx AtorvaSTATin [Lipitor] 40 mg PO QHS #30 tablet 11/24/18 Unknown Rx hydrALAZINE [Apresoline TAB] 50 mg PO Q8HR #120 tablet 11/24/18 Unknown Rx Active Medications: Generic Name Dose Route Start Last Admin Trade Name Freq PRN Reason Stop Dose Admin Acetaminophen 650 mg 11/27/18 16:36 11/27/18 17:14 Tylenol PO 650 mg Q4H PRN Administration Pain, Mild (1-3) Aspirin 325 mg 11/26/18 10:00 11/27/18 10:53 Aspirin PO 325 mg QDAY BECKIE Administration Atorvastatin Calcium 40 mg 11/26/18 22:00 11/27/18 22:32 Lipitor PO 40 mg QHS BECKIE Administration Dextrose 50 ml 11/25/18 23:02 D50w (25gm) Syringe IV PRN PRN Hypoglycemia Epoetin Blayne 10,000 unit 11/27/18 10:57 Procrit IV NINO PRN hemodialysis Glycerin 1 supp 11/27/18 19:04 Glycerin Adult 2 Gm [place] QDAY PRN Constipation Heparin Sodium (Porcine) 5,000 unit 11/25/18 23:00 11/27/18 22:32 Heparin SUB-Q 5,000 unit Q12HR BECKIE Administration Hydralazine HCl 50 mg 11/26/18 06:00 11/28/18 05:36 Apresoline PO Not Given Q8HR [facility] Sodium Chloride 1,000 mls @ 75 mls/hr 11/26/18 17:00 11/27/18 06:47 Nacl 0.9% 1000 Ml IV 75 mls/hr DIRECT BECKIE Administration Sodium Chloride 100 mls @ 999 mls/hr 11/27/18 10:57 Nacl 0.9% IV NINO PRN Hypotension Insulin Human Regular 0 units 11/26/18 07:30 11/27/18 17:16 Humulin R SUB-Q Not Given AC [facility] Protocol Insulin Human Regular 0 units 11/26/18 22:00 11/27/18 21:17 Humulin R SUB-Q Not Given QHS [facility] Protocol Polyethylene Glycol 17 gm 11/27/18 19:04 11/27/18 20:14 Miralax 3350 PO 17 gm BID PRN Administration Constipation Senna/Docusate Sodium 2 tab 11/27/18 19:04 Senokot S PO Q12H PRN Laxative Effect
[2018-11-28] MEDS ORDERED: HEPARIN/NS 5000 UNIT/500ML(CATH LAB) 500 ML IR ONE (08:16)
[2018-11-28] MEDS ORDERED: NACL 0.9% 250ML 250 ML ONE (08:17)
[2018-11-28] MEDS: VERSED ONE ×2 (08:54→09:08)
[2018-11-28] MEDS: SUBLIMAZE ONE ×2 (08:55→09:08)
[2018-11-28] MEDS: XYLOCAINE 2% INFILTRATI ONE ×2 (08:55→09:11)
[2018-11-28] MEDS: HEPARIN 10,000 UNITS/10 ML ONE ×4 (09:01→09:24)
[2018-11-28] MEDS: HEPARIN SUB-Q SCH ×2 (10:00→22:19)
--- NOTE | 2018-11-28 10:05 | Vascular Lab Report ---
DOPPLER ULTRASOUND UPPER EXTREMITY VENOUS MAPPING, BILATERAL INDICATION / CLINICAL INFORMATION: Bilateral upper extremity vein mapping for AV access, history of diabetes, end-stage renal disease, h ypertension. TECHNIQUE: Grayscale, color and spectral Doppler imaging of the venous system of the right and left upper extrem ities was performed. COMPARISON: None available. FINDINGS: RIGHT UPPER EXTREMITY: Subclavian Vein: Patent. Axillary Vein: Patent. Cephalic Vein (Diameter, in mm): - Upper Arm: 2.7 - Mid Arm: 2.2 - Antecubital: 1.9. Superficial venous thrombosis is noted in the right cephalic vein at the antecubi re fossa. - Upper Forearm: 2.9 - Mid Forearm: 1.3 - Wrist: 1.0 Basilic Vein (Diameter, in mm): - Upper Arm: 5.8 - Mid Arm: 3.3 - Antecubital: 2.6 - Upper Forearm: 2.2 - Mid Forearm: 1.4 - Wrist: 1.4 Brachial Artery PSV: 96 cm/s Radial Artery (Diameter, in mm): 3.6 LEFT UPPER EXTREMITY: Subclavian Vein: Patent. Axillary Vein: Patent. Cephalic Vein (Diameter, in mm): - Upper Arm: 2.5. Thrombosed. - Mid Arm: 3.0. Thrombosed. - Antecubital: 4.7. Thrombosed. - Upper Forearm: 0.9 - Mid Forearm: 1.3 - Wrist: 0.9 Basilic Vein (Diameter, in mm): - Upper Arm: 3.9 - Mid Arm: 2.8 - Antecubital: 2.3 - Upper Forearm: 2.0 - Mid Forearm: 1.5 - Wrist: 1.4 Brachial Artery PSV : 75 cm/s Radial Artery (Diameter, in mm): 3.2 Additional Findings: None. IMPRESSION: 1. Superficial venous thrombosis is noted in the right cephalic vein at the antecubital fossa and in the left cephalic vein from the proximal biceps to the antecubital fossa. 2. Upper extremity venous mapping as above. Signer Name: Brandon Walker Jr, MD Signed: 11/28/2018 10:00 AM Workstation Name: [id number]
--- NOTE | 2018-11-28 11:28 | Post Operative Note ---
Date of procedure: 11/28/18 Pre-op diagnosis: ESRD Post-op diagnosis: same Procedure: Permcath placement Anesthesia: local (w/ conscious sedation) Surgeon: REJI VÁZQUEZ Estimated blood loss: minimal Condition: stable Disposition: floor
[2018-11-28] MEDS: PROCRIT IV PRN (12:45)
[2018-11-28] MEDS ORDERED: NACL 0.9 (PRIMING MACHINE ONLY DIALYSIS) MC ONE ×2 (12:45→23:25)
--- NOTE | 2018-11-28 15:16 | Operative Report ---
Operative Report Operative Report: EXAM: 1. Ultrasound-guided puncture of the right internal jugular vein 2. Fluoroscopic-guided placement of a right internal jugular tunneled cuffed hemodialysis catheter. DATE: 11/28/18 INDICATION: ESRD requiring hemodialysis access. MEDICATIONS: Please see nursing report for full details. DEVICES: 27 cm tip to cuff 15 Fr dual lumen hemodialysis catheter HOUSE BUILDER: REJI VÁZQUEZ MD CONTRAST: None PROCEDURE: The risks, benefits, and alternatives were discussed and informed consent was obtained. The patient was transported to the angiography suite in satisfactory/stable condition and was transported onto the angiography table. The patient's right internal jugular vein was assessed with ultrasound and determined to be patent prior to procedure. The patient was prepped and draped in a sterile fashion. The puncture site was anesthetized. Under sonographic guidance, the right internal jugular vein was punctured with a 21-gauge micropuncture needle and a 0.018 inch wire was advanced into the inferior vena cava. The micropuncture needle was exchanged for a transitional dilator and the wire was retracted into the right atrium to santiago intravascular distance. The wire and inner dilator were removed. 0.035 inch wire was advanced through the transitional dilator into the inferior vena cava. A suitable exit site was identified on the patient's chest inferior and lateral to the venotomy. The site was anesthetized with local anesthetic and the track was anesthetized. Dermatotomy was made. The PermCath was attached to the tunneling device and tunneled between the dermatotomy to the venotomy. Over the 0.035 inch wire, serial dilatation was performed with ultimate placement of a peel-away sheath. The catheter was advanced through the peel- away sheath after the wire was removed and positioned centrally under fluoroscopic guidance. The peel-away sheath was removed. 4-0 Vicryl suture was used to close the venotomy and Dermabond was then applied. 2-0 Ethilon suture was used to secure the catheter at the dermatotomy. The catheter was charged with heparin 1000 units per mL of space. Sterile dressing and Biopatch applied. The patient was transferred from the angiography suite back to the floor in stable condition. FINDINGS: 1. Excellent flow was obtained through the dialysis catheter with 20 mL syringes. 2. The catheter tip is in the right atrium. IMPRESSION: 1. Successful ultrasound and fluoroscopically guided placement of a right internal jugular tunneled cuffed hemodialysis catheter.
[2018-11-28] MEDS: ASPIRIN PO SCH (15:17)
[2018-11-28] MEDS: TYLENOL PO PRN ×2 (15:17→22:19)
[2018-11-29] MEDS: APRESOLINE PO SCH ×3 (06:35→21:04)
[2018-11-29] MEDS: HumuLIN R SUB-Q SCH ×4 (07:30→22:38)
--- NOTE | 2018-11-29 08:18 | Progress Note ---
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 s/p permcath placement at this time and will continue on MWF HD schedule as an inpatient;need to have CM work on outpatient HD placement. (2) Hypertensive chronic kidney disease with stage 1 through stage 4 chronic kidney disease, or unspecified chronic kidney disease Current Visit: Yes Status: Chronic Plan to address problem: Continue on current regimen and closely monitor. (3) Type 2 diabetes mellitus with diabetic nephropathy Current Visit: Yes Status: Chronic Plan to address problem: DM management per primary attending. (4) Anemia in chronic illness Current Visit: Yes Status: Acute Plan to address problem: Monitor H/[facility] with HD to maintain within goal of 10-11.5. (5) Encephalopathy Current Visit: No Status: Acute Plan to address problem: Improved at this time back to baseline. Subjective Date of service: 11/29/18 Principal diagnosis: ? CKD progressing to end-stage renal disease Interval history: s/p permcath placement. Tolerated HD well without any issues. Objective - Vital Signs Vital signs: Vital Signs - 12hr 11/28/18 11/28/18 11/29/18 22:03 22:19 01:09 Temperature Pulse Rate 78 87 Respiratory 20 Rate Blood Pressure 152/82 O2 Sat by Pulse Oximetry 11/29/18 11/29/18 11/29/18 02:26 06:35 07:22 Temperature 98.5 F 98.8 F Pulse Rate 82 79 Respiratory 18 20 Rate Blood Pressure 138/74 138/74 138/72 O2 Sat by Pulse 98 96 Oximetry - General Appearance General appearance: well-developed, well-nourished, appears stated age EENT: ATNC, PERRL Neck: no JVD, no thyromegaly, no carotid bruit Respiratory: Present: Clear to Ascultation, Normal Exam Cardiology: regular, S1S2 Gastrointestinal: normal, normoactive bowel sounds Integumentary: no rash, warm and dry Neurologic: no focal deficit, no asterixis, alert and oriented x3 Musculoskeletal: deferred Psychiatric: mood/affect appropriate, cooperative - Lab 11/25/18 17:05 11/27/18 04:20 Most recent lab results Calcium 8.9 mg/dL (8.4-10.2) 11/27/18 04:20 - Allied health notes Allied health notes reviewed: nursing Medications & Allergies - Medications Allergies/Adverse Reactions: Allergies No Known Allergies Allergy (Unverified 11/20/18 16:31) Home Medications: Home Medications Medication Instructions Recorded Confirmed Last Taken Type Aspirin 325 mg PO QDAY #30 tablet 11/24/18 11/28/18 Unknown Rx AtorvaSTATin [Lipitor] 40 mg PO QHS #30 tablet 11/24/18 11/28/18 Unknown Rx hydrALAZINE [Apresoline TAB] 50 mg PO Q8HR #120 tablet 11/24/18 11/28/18 Unknown Rx Active Medications: Generic Name Dose Route Start Last Admin Trade Name Freq PRN Reason Stop Dose Admin Acetaminophen 650 mg 11/27/18 16:36 11/28/18 22:19 Tylenol PO 650 mg Q4H PRN Administration Pain, Mild (1-3) Aspirin 325 mg 11/26/18 10:00 11/28/18 15:17 Aspirin PO 325 mg QDAY BECKIE Administration Atorvastatin Calcium 40 mg 11/26/18 22:00 11/28/18 22:19 Lipitor PO 40 mg QHS BECKIE Administration Dextrose 50 ml 11/25/18 23:02 D50w (25gm) Syringe IV PRN PRN Hypoglycemia Epoetin Blayne 10,000 unit 11/27/18 10:57 11/28/18 12:45 Procrit IV 10,000 unit NINO PRN Administration hemodialysis Glycerin 1 supp 11/27/18 19:04 Glycerin Adult 2 Gm [place] QDAY PRN Constipation Heparin Sodium (Porcine) 5,000 unit 11/25/18 23:00 11/28/18 22:19 Heparin SUB-Q 5,000 unit Q12HR [facility] Administration Hydralazine HCl 50 mg 11/26/18 06:00 11/29/18 06:35 Apresoline PO 50 mg Q8HR [facility] Administration Sodium Chloride 1,000 mls @ 75 mls/hr 11/26/18 17:00 11/27/18 06:47 Nacl 0.9% 1000 Ml IV 75 mls/hr DIRECT BECKIE Administration Sodium Chloride 100 mls @ 999 mls/hr 11/27/18 10:57 Nacl 0.9% IV NINO PRN Hypotension Insulin Human Regular 0 units 11/26/18 07:30 11/28/18 18:03 Humulin R SUB-Q Not Given AC [facility] Protocol Insulin Human Regular 0 units 11/26/18 22:00 11/28/18 22:11 [facility] Polyethylene Glycol 17 gm 11/27/18 19:04 11/27/18 20:14 Miralax 3350 PO 17 gm BID PRN Administration Constipation Senna/Docusate Sodium 2 tab 11/27/18 19:04 Senokot S PO Q12H PRN Laxative Effect
[2018-11-29] MEDS: ASPIRIN PO SCH (09:27)
[2018-11-29] MEDS: HEPARIN SUB-Q SCH ×2 (09:28→21:04)
--- NOTE | 2018-11-29 12:05 | Progress Note ---
Assessment and Plan Pt denies any occurrence of chest pain, ECG with no acute ischemic changes, elevated Maycol appear c/w NSTEMI type II. ECG is abnormal. No prior ischemic evaluation. Will plan for lexiscan MPI stress test in AM. NPO after MN. Pt noted to have mild-mod and AR. Will plan to monitor closely as OP. The patient has been seen in conjunction with Dr. Eliot Friedman who agrees with the assessment and plan of care. - Patient Problems (1) NSTEMI (non-ST elevated myocardial infarction) Current Visit: Yes Status: Acute Plan to address problem: suspect type II (2) ESRD (end stage renal disease) Current Visit: Yes Status: Chronic (3) Altered mental state Current Visit: Yes Status: Resolved Qualifiers: Altered mental status type: unspecified Qualified Code(s): R41.82 - Altered mental status, unspecified (4) Anemia Current Visit: Yes Status: Acute (5) Hypertension Current Visit: Yes Status: Chronic (6) Diabetes Current Visit: Yes Status: Chronic (7) Aortic stenosis Current Visit: Yes Status: Chronic Plan to address problem: mild to moderate (8) Aortic regurgitation Current Visit: Yes Status: Chronic Plan to address problem: mild to moderate Subjective Date of service: 11/29/18 Principal diagnosis: ? CKD progressing to end-stage renal disease Interval history: pt resting in bed, no current cardiac complaints. in SR on tele. Objective Last Vital Signs Temp 98.8 F 11/29/18 07:22 Pulse 79 11/29/18 10:00 Resp 20 11/29/18 07:22 BP 138/72 11/29/18 07:22 Pulse Ox 96 11/29/18 07:22 - Physical Examination General: No Apparent Distress HEENT: Positive: PERRL Neck: Positive: neck supple Cardiac: Positive: Reg Rate and Rhythm, S1/S2 Lungs: Positive: Decreased Breath Sounds Neuro: Positive: Grossly Intact Abdomen: Positive: Unremarkable /Rectal: Other (deferred) Skin: Positive: Clear Musculoskeletal: No Pain Extremities: Present: normal - Imaging and Cardiology Echo: report reviewed (11/20/18: EF 50-55%, grade 1 LV diastolic dysfunction, severe LAE, mild-mod , mild-mod TR, mild MR) - Telemetry EKG Rhythm: Sinus Rhythm - Allied health notes Allied health notes reviewed: nursing
--- NOTE | 2018-11-29 14:07 | Vascular Lab Report ---
RIGHT UPPER EXTREMITY VENOUS DOPPLER ULTRASOUND HISTORY: Neck pain COMPARISON: None. TECHNIQUE: Grayscale, color and spectral Doppler imaging of the venous system of the right upper extr emity was performed. FINDINGS: Internal Jugular Vein: Normal grayscale appearance and flow. Subclavian Vein: Normal grayscale appearance and flow. Axillary Vein: Normal venous flow, compressibility and augmentation. Brachial vein: Normal venous flow, compressibility and augmentation. Basilic vein: Normal venous flow, compressibility and augmentation. Cephalic vein: Partially occluding superficial venous thrombosis is noted cephalic vein at the level of the antecubital fossa. Additional Findings: None. IMPRESSION: No evidence for DVT. Partially occluding superficial venous thrombosis in the cephalic vein. Signer Name: Brandon Walkre Jr, MD Signed: 11/29/2018 2:02 PM Workstation Name: [id number]
--- NOTE | 2018-11-29 15:44 | Progress Note ---
Assessment and Plan Assessment and plan: Patient is a 68-year-old man with known stage V chronic kidney disease who was brought to the hospital for decreased responsiveness. Acute metabolic encephalopathy due to uremia-Patient is planned for dialysis, Mentation is improving CKD stage V progressing to ESRD-Nephrology input appreciated,Kidney function is worsening. s/p VasCath followed by dialysis. Senile dementia-Patient is forgetful, and does not remember previous admission for the same indication. Continue supportive care NSTEMI (non-ST elevated myocardial infarction) type 2: stress test in Am AOCD: monitor CBC closely DVT prophylaxis heparin Disposition, will need dialysis chair time set up prior to discharge History Interval history: Patient was seen and examined. Follow-up on current diagnosis of AMS. No overnig ht events reported to me. Patient denies any chest pain, shortness breath, nausea/vomiting or severe headaches. Imaging, nursing note, chart, labs and old chart reviewed. Discussed with patient. His only compliant is that the right vas-cath is causing neck pains Hospitalist Physical - Physical exam Narrative exam: Gen: WDWN, NAD, Awake, Alert, Orientated x 2 HEENT: NCAT, EOMI, PERRL, OP Clear Neck: supple, no adenopathy, no thyromegaly, no JVD CVS/Heart: RRR, normal S1S2, pulses present bilaterally Chest/Lungs: CTA B, Symmetrical chest expansion, good air entry bilaterally GI/Abdomen: soft, NTND, good bowel sounds, no guarding or rebound /Bladder: no suprapubic tenderness, no CVA or paraspinal tenderness Extermity/Skin: no c/c/e, no obvious rash MSK: FROM x 4 Neuro: CN 2-12 grossly intact, no new focal deficits Psych: calm - Constitutional Vitals: Temp Pulse Resp BP Pulse Ox 98.8 F 78 20 145/77 99 11/29/18 13:30 11/29/18 13:30 11/29/18 13:30 11/29/18 13:30 11/29/18 13:30 General appearance: Present: no acute distress Results - Labs CBC & Chem 7: 11/25/18 17:05 11/27/18 04:20 Labs: Laboratory Last Values WBC 6.4 K/mm3 (4.5-11.0) 11/25/18 17:05 RBC 3.38 M/mm3 (3.65-5.03) L 11/25/18 17:05 Hgb 10.4 gm/dl (11.8-15.2) L 11/25/18 17:05 Hct 31.2 % (35.5-45.6) L 11/25/18 17:05 MCV 92 fl (84-94) 11/25/18 17:05 MCH 31 pg (28-32) 11/25/18 17:05 MCHC 33 % (32-34) 11/25/18 17:05 RDW 16.3 % (13.2-15.2) H 11/25/18 17:05 Plt Count 166 K/mm3 (140-440) 11/25/18 17:05 Lymph % (Auto) 14.0 % (13.4-35.0) 11/25/18 17:05 [place] % (Auto) 4.7 % (0.0-7.3) 11/25/18 17:05 Eos % (Auto) 7.4 % (0.0-4.3) H 11/25/18 17:05 Baso % (Auto) 0.4 % (0.0-1.8) 11/25/18 17:05 Lymph # 0.9 K/mm3 (1.2-5.4) L 11/25/18 17:05 [place] # 0.3 K/mm3 (0.0-0.8) 11/25/18 17:05 Eos # 0.5 K/mm3 (0.0-0.4) H 11/25/18 17:05 Baso # 0.0 K/mm3 (0.0-0.1) 11/25/18 17:05 Seg Neutrophils % 73.5 % (40.0-70.0) H 11/25/18 17:05 Seg Neutrophils # 4.7 K/mm3 (1.8-7.7) 11/25/18 17:05 VBG pH 7.374 (7.320-7.420) 11/25/18 17:05 Sodium 138 mmol/L (137-145) 11/27/18 04:20 Potassium 3.6 mmol/L (3.6-5.0) 11/27/18 04:20 Chloride 101.8 mmol/L (98-107) 11/27/18 04:20 Carbon Dioxide 25 mmol/L (22-30) 11/27/18 04:20 15 mmol/L 11/27/18 04:20 BUN 37 mg/dL (9-20) H 11/27/18 04:20 6.4 mg/dL (0.8-1.5) H 11/27/18 04:20 Estimated GFR 11 ml/min 11/27/18 04:20 6 % 11/27/18 04:20 Glucose 83 mg/dL (75-100) 11/27/18 04:20 POC Glucose 80 (70-105) 11/29/18 11:25 4.7 % (4-6) 11/26/18 15:55 Lactic Acid 1.50 mmol/L (0.7-2.0) 11/25/18 17:05 Calcium 8.9 mg/dL (8.4-10.2) 11/27/18 04:20 0.30 mg/dL (0.1-1.2) 11/25/18 17:05 AST 16 units/L (5-40) 11/25/18 17:05 ALT 7 units/L (7-56) 11/25/18 17:05 56 units/L (35-129) 11/25/18 17:05 164 units/L (55-170) 11/26/18 08:42 CK-MB (CK-2) 5.0 ng/mL (0.0-4.0) H 11/26/18 08:42 CK-MB (CK-2) Rel Index 3.0 (0-4) 11/26/18 08:42 0.167 ng/mL (0.00-0.029) H* 11/26/18 08:42 6.8 g/dL (6.3-8.2) 11/25/18 17:05 3.6 g/dL (3.9-5) L 11/25/18 17:05 1.1 % 11/25/18 17:05 Yellow (Yellow) 11/25/18 23:00 Clear (Clear) 11/25/18 23:00 8.0 (5.0-7.0) H 11/25/18 23:00 Ur Specific [place] 1.010 (1.003-1.030) 11/25/18 23:00 100 mg/dl mg/dL (Negative) 11/25/18 23:00 50 mg/dL (Negative) 11/25/18 23:00 Neg mg/dL (Negative) 11/25/18 23:00 Neg (Negative) 11/25/18 23:00 Neg (Negative) 11/25/18 23:00 Neg (Negative) 11/25/18 23:00 < 2.0 mg/dL (<2.0) 11/25/18 23:00 Ur Leukocyte Esterase Neg (Negative) 11/25/18 23:00 < 1.0 /HPF (0.0-6.0) 11/25/18 23:00 < 1.0 /HPF (0.0-6.0) 11/25/18 23:00 Salicylates < 0.3 mg/dL (2.8-20.0) L 11/25/18 17:05 Presumptive negative 11/25/18 23:00 Presumptive negative 11/25/18 23:00 Acetaminophen < 5.0 ug/mL (10.0-30.0) L 11/25/18 17:05 Ur Barbiturates Screen Presumptive negative 11/25/18 23:00 Ur Phencyclidine Scrn Presumptive negative 11/25/18 23:00 Ur Amphetamines Screen Presumptive negative 11/25/18 23:00 U Benzodiazepines Scrn Presumptive negative 11/25/18 23:00 Presumptive negative 11/25/18 23:00 U Marijuana (THC) Screen Presumptive negative 11/25/18 23:00 Disclamer 11/25/18 23:00 Plasma/Serum Alcohol < 0.01 % (0-0.07) 11/25/18 17:05 Active Medications - Current Medications Current Medications: Generic Name Dose Route Start Last Admin Trade Name Freq PRN Reason Stop Dose Admin Acetaminophen 650 mg 11/27/18 16:36 11/28/18 22:19 Tylenol PO 650 mg Q4H PRN Administration Pain, Mild (1-3) Aspirin 325 mg 11/26/18 10:00 11/29/18 09:27 Aspirin PO 325 mg QDAY BECKIE Administration Atorvastatin Calcium 40 mg 11/26/18 22:00 11/28/18 22:19 Lipitor PO 40 mg QHS BECKIE Administration Dextrose 50 ml 11/25/18 23:02 D50w (25gm) Syringe IV PRN PRN Hypoglycemia Epoetin Blayne 10,000 unit 11/27/18 10:57 11/28/18 12:45 Procrit IV 10,000 unit NINO PRN Administration hemodialysis Glycerin 1 supp 11/27/18 19:04 Glycerin Adult 2 Gm MN QDAY PRN Constipation Heparin Sodium (Porcine) 5,000 unit 11/25/18 23:00 11/29/18 09:28 Heparin SUB-Q 5,000 unit Q12HR BECKIE Administration Hydralazine HCl 50 mg 11/26/18 06:00 11/29/18 13:52 Apresoline PO 50 mg Q8HR BECKIE Administration Sodium Chloride 1,000 mls @ 75 mls/hr 11/26/18 17:00 11/27/18 06:47 Nacl 0.9% 1000 Ml IV 75 mls/hr DIRECT BECKIE Administration Sodium Chloride 100 mls @ 999 mls/hr 11/27/18 10:57 Nacl 0.9% IV NINO PRN Hypotension Insulin Human Regular 0 units 11/26/18 07:30 11/29/18 11:43 Humulin R SUB-Q Not Given AC [facility] Protocol Insulin Human Regular 0 units 11/26/18 22:00 11/28/18 22:11 [facility] Polyethylene Glycol 17 gm 11/27/18 19:04 11/27/18 20:14 Miralax 3350 PO 17 gm BID PRN Administration Constipation Senna/Docusate Sodium 2 tab 11/27/18 19:04 Senokot S PO Q12H PRN Laxative Effect Nutrition/Malnutrition Assess - Dietary Evaluation Nutrition/Malnutrition Findings: Nutrition Notes Start: 11/26/18 10:13 Freq: Status: Active Protocol: Document 11/29/18 10:15 DW (Rec: 11/29/18 10:53 DW [id number]) Co-Sign 11/29/18 10:15 LP Nutrition Notes Initial or Follow up Reassessment Current Diagnosis Acute Kidney Injury, Hypertension,Stroke Other Pertinent Diagnosis AMS Current Diet Renal Labs/Tests Reviewed Pertinent Medications Reviewed Height 6 ft Weight 72.575 kg [place] Body Weight (kg) 80.90 BMI 21.7 Subjective/Other Information Pt stated he has been eating good and appetite is better. Pt he is eating 100% of his meals. Breakfast had not eaten before visit but pt stated he would eat it later when he was hungry. Percent of energy/protein needs met: 84%/100% Burn Absent Trauma Absent #1 Nutrition Diagnosis Predicted suboptimal energy intake As Evidenced by Signs and Symptoms Pt is consuming 100% of his meals and improved appetite Diagnosis Progress(for reassessment Resolved documentation) Is patient on ventilator? No Is Patient Ambulatory and/or Out of Bed Yes REE-([place]-[facility]-ambulatory/OOB) [ 2000.375 NUTR.MSJOOB] Kcal/Kg value to use for calculation 35 Approximate Energy Requirements Using 2540 kcal/Kg Calculation Used for Recommendations Kcal/kg Additional Notes Protein needs: 73-94g (1-1.3 g /kg) Fluids: 1 ml/kcal or per MD Nutrition Intervention Change Diet Order: Renal Goal #1 Continue to meet atleast 75% of energy and PRO needs Anticipated Discharge Needs: Renal diet Follow-Up By: 12/06/18 Additional Comments FU for stable intake
[2018-11-29] MEDS ORDERED: NORCO 5/325 PO PRN (17:30)
--- NOTE | 2018-11-29 17:30 | Event Note ---
Date: 11/29/18 Mild right posterior neck and anterior neck pain. DVT study negative for IJ DVT. Pain improving. No issues with movement of neck. Should improve over next 2-4 days. Recommend [place].
[2018-11-30 06:13] LABS: Hemoglobin 9.5 gm/dl (11.8-15.2); Mean Corpuscular HGB Conc 34 % (32-34); Mean Corpuscular Volume 92 fl (84-94); Platelet Count 185 K/mm3 (140-440); Red Blood Count 3.03 M/mm3 (3.65-5.03); Red Cell Distribution Width 15.8 % (13.2-15.2)
[2018-11-30 06:36] LABS: Calcium 8.9 mg/dL (8.4-10.2)
[2018-11-30] MEDS: APRESOLINE PO SCH ×3 (06:36→21:27)
[2018-11-30] MEDS ORDERED: LEXISCAN IV ONE (07:00)
[2018-11-30] MEDS: NACL 0.9% 1000 ML 1,000 ML IV SCH ×2 (07:30→18:25)
[2018-11-30] MEDS: HumuLIN R SUB-Q SCH ×4 (08:37→21:27)
--- NOTE | 2018-11-30 10:18 | Progress Note ---
Assessment and Plan S/p lexiscan MPI stress test this AM which was negative. Pt noted to have mild-mod and AR. Will plan to monitor closely as OP. Currently stable cardiac status. Pt may discharge home from cardiology standpoint. Follow up in our [place] office with Dr. Dickson on 12/21/2018 @ 10:30AM. The patient has been seen in conjunction with Dr. Eliot Friedman who agrees with the assessment and plan of care. - Patient Problems (1) NSTEMI (non-ST elevated myocardial infarction) Current Visit: Yes Status: Acute Plan to address problem: type II (2) ESRD (end stage renal disease) Current Visit: Yes Status: Chronic (3) Altered mental state Current Visit: Yes Status: Resolved Qualifiers: Altered mental status type: unspecified Qualified Code(s): R41.82 - Altered mental status, unspecified (4) Anemia Current Visit: Yes Status: Acute (5) Hypertension Current Visit: Yes Status: Chronic (6) Diabetes Current Visit: Yes Status: Chronic (7) Aortic stenosis Current Visit: Yes Status: Chronic (8) Aortic regurgitation Current Visit: Yes Status: Chronic Subjective Date of service: 11/30/18 Principal diagnosis: ? CKD progressing to end-stage renal disease Interval history: pt for stress test, no current cardiac complaints. in SR on tele. Objective Last Vital Signs Temp 98.9 F 11/30/18 07:23 Pulse 91 H 11/30/18 07:23 Resp 18 11/30/18 07:23 BP 145/76 11/30/18 09:02 Pulse Ox 98 11/30/18 07:23 - Physical Examination General: No Apparent Distress HEENT: Positive: PERRL Neck: Positive: neck supple Cardiac: Positive: Reg Rate and Rhythm, S1/S2, Systolic Murmur Lungs: Positive: Decreased Breath Sounds Neuro: Positive: Grossly Intact Abdomen: Positive: Unremarkable /Rectal: Other (deferred) Skin: Positive: Clear Musculoskeletal: No Pain Extremities: Present: normal - Labs and Meds CBC 11/30/18 Range/Units 05:32 WBC 5.6 (4.5-11.0) K/mm3 RBC 3.03 L (3.65-5.03) M/mm3 Hgb 9.5 L (11.8-15.2) gm/dl Hct 28.0 L (35.5-45.6) % Plt Count 185 (140-440) K/mm3 Comprehensive Metabolic Panel 11/30/18 Range/Units 05:32 Sodium 138 (137-145) mmol/L Potassium 3.7 (3.6-5.0) mmol/L Chloride 101.0 (98-107) mmol/L Carbon Dioxide 24 (22-30) mmol/L BUN 26 H (9-20) mg/dL Creatinine 5.7 H (0.8-1.5) mg/dL Glucose 84 (75-100) mg/dL Calcium 8.9 (8.4-10.2) mg/dL - Imaging and Cardiology Echo: report reviewed (11/20/18: EF 50-55%, grade 1 LV diastolic dysfunction, severe LAE, mild-mod , mild-mod TR, mild MR) - Allied health notes Allied health notes reviewed: nursing
[2018-11-30] MEDS ORDERED: NACL 0.9 (PRIMING MACHINE ONLY DIALYSIS) MC ONE (13:29)
[2018-11-30] MEDS: HEPARIN SUB-Q SCH ×2 (13:30→21:27)
[2018-11-30] MEDS: PROCRIT IV PRN (13:30)
--- NOTE | 2018-11-30 14:03 | Progress Note ---
Assessment and Plan Assessment and plan: Patient is a 68-year-old man with known stage V chronic kidney disease who was brought to the hospital for decreased responsiveness. Acute metabolic encephalopathy due to uremia-Patient is planned for dialysis, Mentation is improving CKD stage V progressing to ESRD-Nephrology input appreciated,Kidney function is worsening. s/p VasCath followed by dialysis. Senile dementia-Patient is forgetful, and does not remember previous admission for the same indication. Continue supportive care NSTEMI (non-ST elevated myocardial infarction) type 2: stress test negative 11/30/18 AOCD: monitor CBC closely DVT prophylaxis heparin Disposition, continue inpatient care, awaiting hemodialysis chair time set up History Interval history: Patient was seen and examined. Follow-up on current diagnosis of AMS. No overnight events reported to me. Patient denies any chest pain, shortness breath, nausea/vomiting or severe headaches. Imaging, nursing note, chart, labs and old chart reviewed. Discussed with patient. His only compliant is that the right vas-cath is causing neck pains Hospitalist Physical - Physical exam Narrative exam: Gen: WDWN, NAD, Awake, Alert, Orientated x 3 HEENT: NCAT, EOMI, PERRL, OP Clear Neck: supple, no adenopathy, no thyromegaly, no JVD CVS/Heart: RRR, normal S1S2, pulses present bilaterally Chest/Lungs: CTA B, Symmetrical chest expansion, good air entry bilaterally GI/Abdomen: soft, NTND, good bowel sounds, no guarding or rebound /Bladder: no suprapubic tenderness, no CVA or paraspinal tenderness Extermity/Skin: no c/c/e, no obvious rash MSK: FROM x 4 Neuro: CN 2-12 grossly intact, no new focal deficits Psych: calm - Constitutional Vitals: Temp Pulse Resp BP Pulse Ox 98.9 F 91 H 18 145/76 98 11/30/18 07:23 11/30/18 07:23 11/30/18 07:23 11/30/18 09:02 11/30/18 07:23 General appearance: Present: no acute distress Results - Labs CBC & Chem 7: 11/30/18 05:32 11/30/18 05:32 Labs: Laboratory Last Values WBC 5.6 K/mm3 (4.5-11.0) 11/30/18 05:32 RBC 3.03 M/mm3 (3.65-5.03) L 11/30/18 05:32 Hgb 9.5 gm/dl (11.8-15.2) L 11/30/18 05:32 Hct 28.0 % (35.5-45.6) L 11/30/18 05:32 MCV 92 fl (84-94) 11/30/18 05:32 MCH 31 pg (28-32) 11/30/18 05:32 MCHC 34 % (32-34) 11/30/18 05:32 RDW 15.8 % (13.2-15.2) H 11/30/18 05:32 Plt Count 185 K/mm3 (140-440) 11/30/18 05:32 Lymph % (Auto) 14.0 % (13.4-35.0) 11/25/18 17:05 [place] % (Auto) 4.7 % (0.0-7.3) 11/25/18 17:05 Eos % (Auto) 7.4 % (0.0-4.3) H 11/25/18 17:05 Baso % (Auto) 0.4 % (0.0-1.8) 11/25/18 17:05 Lymph # 0.9 K/mm3 (1.2-5.4) L 11/25/18 17:05 [place] # 0.3 K/mm3 (0.0-0.8) 11/25/18 17:05 Eos # 0.5 K/mm3 (0.0-0.4) H 11/25/18 17:05 Baso # 0.0 K/mm3 (0.0-0.1) 11/25/18 17:05 Seg Neutrophils % 73.5 % (40.0-70.0) H 11/25/18 17:05 Seg Neutrophils # 4.7 K/mm3 (1.8-7.7) 11/25/18 17:05 VBG pH 7.374 (7.320-7.420) 11/25/18 17:05 Sodium 138 mmol/L (137-145) 11/30/18 05:32 Potassium 3.7 mmol/L (3.6-5.0) 11/30/18 05:32 Chloride 101.0 mmol/L (98-107) 11/30/18 05:32 Carbon Dioxide 24 mmol/L (22-30) 11/30/18 05:32 17 mmol/L 11/30/18 05:32 BUN 26 mg/dL (9-20) H 11/30/18 05:32 5.7 mg/dL (0.8-1.5) H 11/30/18 05:32 Estimated GFR 12 ml/min 11/30/18 05:32 5 % 11/30/18 05:32 Glucose 84 mg/dL (75-100) 11/30/18 05:32 POC Glucose 80 (70-105) 11/30/18 07:33 4.7 % (4-6) 11/26/18 15:55 Lactic Acid 1.50 mmol/L (0.7-2.0) 11/25/18 17:05 Calcium 8.9 mg/dL (8.4-10.2) 11/30/18 05:32 0.30 mg/dL (0.1-1.2) 11/25/18 17:05 AST 16 units/L (5-40) 11/25/18 17:05 ALT 7 units/L (7-56) 11/25/18 17:05 56 units/L (35-129) 11/25/18 17:05 164 units/L (55-170) 11/26/18 08:42 CK-MB (CK-2) 5.0 ng/mL (0.0-4.0) H 11/26/18 08:42 CK-MB (CK-2) Rel Index 3.0 (0-4) 11/26/18 08:42 0.167 ng/mL (0.00-0.029) H* 11/26/18 08:42 6.8 g/dL (6.3-8.2) 11/25/18 17:05 3.6 g/dL (3.9-5) L 11/25/18 17:05 1.1 % 11/25/18 17:05 Yellow (Yellow) 11/25/18 23:00 Clear (Clear) 11/25/18 23:00 8.0 (5.0-7.0) H 11/25/18 23:00 Ur Specific [place] 1.010 (1.003-1.030) 11/25/18 23:00 100 mg/dl mg/dL (Negative) 11/25/18 23:00 50 mg/dL (Negative) 11/25/18 23:00 Neg mg/dL (Negative) 11/25/18 23:00 Neg (Negative) 11/25/18 23:00 Neg (Negative) 11/25/18 23:00 Neg (Negative) 11/25/18 23:00 < 2.0 mg/dL (<2.0) 11/25/18 23:00 Ur Leukocyte Esterase Neg (Negative) 11/25/18 23:00 < 1.0 /HPF (0.0-6.0) 11/25/18 23:00 < 1.0 /HPF (0.0-6.0) 11/25/18 23:00 Salicylates < 0.3 mg/dL (2.8-20.0) L 11/25/18 17:05 Presumptive negative 11/25/18 23:00 Presumptive negative 11/25/18 23:00 Acetaminophen < 5.0 ug/mL (10.0-30.0) L 11/25/18 17:05 Ur Barbiturates Screen Presumptive negative 11/25/18 23:00 Ur Phencyclidine Scrn Presumptive negative 11/25/18 23:00 Ur Amphetamines Screen Presumptive negative 11/25/18 23:00 U Benzodiazepines Scrn Presumptive negative 11/25/18 23:00 Presumptive negative 11/25/18 23:00 U Marijuana (THC) Screen Presumptive negative 11/25/18 23:00 Disclamer 11/25/18 23:00 Plasma/Serum Alcohol < 0.01 % (0-0.07) 11/25/18 17:05 Active Medications - Current Medications Current Medications: Generic Name Dose Route Start Last Admin Trade Name Freq PRN Reason Stop Dose Admin Acetaminophen 650 mg 11/27/18 16:36 11/28/18 22:19 Tylenol PO 650 mg Q4H PRN Administration Pain, Mild (1-3) Acetaminophen/Hydrocodone Bitart 1 each 11/29/18 17:30 [place] 5/325 PO Q6H PRN Pain, Moderate (4-6) Aspirin 325 mg 11/26/18 10:00 11/29/18 09:27 Aspirin PO 325 mg QDAY BECKIE Administration Atorvastatin Calcium 40 mg 11/26/18 22:00 11/29/18 21:04 Lipitor PO 40 mg QHS BECKIE Administration Dextrose 50 ml 11/25/18 23:02 D50w (25gm) Syringe IV PRN PRN Hypoglycemia Epoetin Blayne 10,000 unit 11/27/18 10:57 11/28/18 12:45 Procrit IV 10,000 unit NINO PRN Administration hemodialysis Glycerin 1 supp 11/27/18 19:04 Glycerin Adult 2 Gm CO QDAY PRN Constipation Heparin Sodium (Porcine) 5,000 unit 11/25/18 23:00 11/30/18 13:30 Heparin SUB-Q Not Given Q12HR BECKIE Hydralazine HCl 50 mg 11/26/18 06:00 11/30/18 06:36 Apresoline PO 50 mg Q8HR BECKIE Administration Sodium Chloride 1,000 mls @ 75 mls/hr 11/26/18 17:00 11/27/18 06:47 Nacl 0.9% 1000 Ml IV 75 mls/hr DIRECT BECKIE Administration Sodium Chloride 100 mls @ 999 mls/hr 11/27/18 10:57 Nacl 0.9% IV NINO PRN Hypotension Insulin Human Regular 0 units 11/26/18 07:30 11/30/18 13:29 Humulin R SUB-Q Not Given AC [facility] Protocol Insulin Human Regular 0 units 11/26/18 22:00 11/29/18 22:38 Humulin R SUB-Q Not Given QHS [facility] Protocol Polyethylene Glycol 17 gm 11/27/18 19:04 11/27/18 20:14 Miralax 3350 PO 17 gm BID PRN Administration Constipation Senna/Docusate Sodium 2 tab 11/27/18 19:04 Senokot S PO Q12H PRN Laxative Effect Nutrition/Malnutrition Assess - Dietary Evaluation Nutrition/Malnutrition Findings: Nutrition Notes Start: 11/26/18 10:13 Freq: Status: Active Protocol: Document 11/29/18 10:15 DW (Rec: 11/29/18 10:53 DW [id number]) Co-Sign 11/29/18 10:15 LP Nutrition Notes Initial or Follow up Reassessment Current Diagnosis Acute Kidney Injury, Hypertension,Stroke Other Pertinent Diagnosis AMS Current Diet Renal Labs/Tests Reviewed Pertinent Medications Reviewed Height 6 ft Weight 72.575 kg [place] Body Weight (kg) 80.90 BMI 21.7 Subjective/Other Information Pt stated he has been eating good and appetite is better. Pt he is eating 100% of his meals. Breakfast had not eaten before visit but pt stated he would eat it later when he was hungry. Percent of energy/protein needs met: 84%/100% Burn Absent Trauma Absent #1 Nutrition Diagnosis Predicted suboptimal energy intake As Evidenced by Signs and Symptoms Pt is consuming 100% of his meals and improved appetite Diagnosis Progress(for reassessment Resolved documentation) Is patient on ventilator? No Is Patient Ambulatory and/or Out of Bed Yes REE-([facility]-ambulatory/OOB) [ 2000.375 NUTR.MSJOOB] Kcal/Kg value to use for calculation 35 Approximate Energy Requirements Using 2540 kcal/Kg Calculation Used for Recommendations Kcal/kg Additional Notes Protein needs: 73-94g (1-1.3 g /kg) Fluids: 1 ml/kcal or per MD Nutrition Intervention Change Diet Order: Renal Goal #1 Continue to meet atleast 75% of energy and PRO needs Anticipated Discharge Needs: Renal diet Follow-Up By: 12/06/18 Additional Comments FU for stable intake
[2018-11-30] MEDS: ASPIRIN PO SCH (14:04)
--- NOTE | 2018-12-01 02:40 | Treadmill Report ---
NUCLEAR STRESS TEST PROTOCOL: The patient was brought to the stress lab in a postabsorptive state, given 10 mCi of technetium-99m at rest. The patient underwent rest imaging. The patient underwent Lexiscan stress test. At peak stress, the patient was given 26 mCi of technetium 99m. Shortly thereafter, the patient underwent stress imaging. Raw imaging reveals mild GI artifact, no significant motion artifact. SPECT imaging examined carefully in horizontal long axis, vertical long axis, and short axis views. There is normal homogeneous uptake of radioisotope in all reported segments. No evidence of significant fixed or reversible perfusion defects suggestive of prior infarction or ischemia. Gated wall motion grossly reveals normal systolic thickening, estimated ejection fraction of 50%. No TID. CONCLUSIONS: 1. Normal myocardial perfusion scan without evidence of active ischemia or prior infarction. 2. Normal left ventricular systolic performance without evidence of transient ischemic dilatation or stress-induced segmental wall motion abnormalities. 3. Normal Lexiscan stress test without evidence of diagnostic ST changes, arrhythmias or chest pain during stress or recovery. JOB# [id number]
[2018-12-01] MEDS: APRESOLINE PO SCH ×3 (06:14→21:25)
[2018-12-01] MEDS: NACL 0.9% 1000 ML 1,000 ML IV SCH ×2 (06:14→19:38)
[2018-12-01] MEDS: HEPARIN SUB-Q SCH ×2 (10:20→21:28)
[2018-12-01] MEDS: ASPIRIN PO SCH (10:20)
[2018-12-01] MEDS: HumuLIN R SUB-Q SCH ×4 (10:23→21:34)
--- NOTE | 2018-12-01 14:02 | Progress Note ---
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 s/p permcath placement at this time and will continue on MWF HD schedule as an inpatient; per CM notes, he has been set up for outpatient HD at [facility] with first session on Wednesday. From a nephrology standpoint patient is stable for DC. (2) Hypertensive chronic kidney disease with stage 1 through stage 4 chronic kidney disease, or unspecified chronic kidney disease Current Visit: Yes Status: Chronic Plan to address problem: Continue on current regimen and closely monitor. (3) Type 2 diabetes mellitus with diabetic nephropathy Current Visit: Yes Status: Chronic Plan to address problem: DM management per primary attending. (4) Anemia in chronic illness Current Visit: Yes Status: Acute Plan to address problem: Monitor H/H. BRIDGET with HD to maintain within goal of 10-11.5. (5) Encephalopathy Current Visit: No Status: Acute Plan to address problem: Improved at this time back to baseline. Subjective Date of service: 12/01/18 Principal diagnosis: ? CKD progressing to end-stage renal disease Interval history: No acute issues, stress test was negative per cardiology note. CM has confirmed per their notes that patient will be starting at [facility] on Wednesday. Patient tolerated HD well yesterday without any significant issues. Objective - Vital Signs Vital signs: Vital Signs - 12hr 12/01/18 12/01/18 12/01/18 02:09 06:14 07:34 Temperature 98.3 F Pulse Rate 81 83 Pulse Rate [ 90 Right Brachial] Respiratory 18 Rate Blood Pressure 161/84 146/78 O2 Sat by Pulse 99 Oximetry - General Appearance General appearance: well-developed, well-nourished, appears stated age EENT: ATNC, PERRL Neck: no JVD, no thyromegaly Respiratory: Present: Clear to Ascultation Cardiology: regular, S1S2 Gastrointestinal: normal, normoactive bowel sounds Integumentary: no rash, warm and dry Neurologic: no focal deficit, no asterixis, alert and oriented x3 Psychiatric: mood/affect appropriate, cooperative - Lab 11/30/18 05:32 11/30/18 05:32 Most recent lab results Calcium 8.9 mg/dL (8.4-10.2) 11/30/18 05:32 Medications & Allergies - Medications Allergies/Adverse Reactions: Allergies No Known Allergies Allergy (Unverified 11/20/18 16:31) Home Medications: Home Medications Medication Instructions Recorded Confirmed Last Taken Type Aspirin 325 mg PO QDAY #30 tablet 11/24/18 11/28/18 Unknown Rx AtorvaSTATin [Lipitor] 40 mg PO QHS #30 tablet 11/24/18 11/28/18 Unknown Rx hydrALAZINE [Apresoline TAB] 50 mg PO Q8HR #120 tablet 11/24/18 11/28/18 Unknown Rx Active Medications: Generic Name Dose Route Start Last Admin Trade Name Freq PRN Reason Stop Dose Admin Acetaminophen 650 mg 11/27/18 16:36 11/28/18 22:19 Tylenol PO 650 mg Q4H PRN Administration Pain, Mild (1-3) Acetaminophen/Hydrocodone Bitart 1 each 11/29/18 17:30 [place] 5/325 PO Q6H PRN Pain, Moderate (4-6) Aspirin 325 mg 11/26/18 10:00 12/01/18 10:20 Aspirin PO 325 mg QDAY BECKIE Administration Atorvastatin Calcium 40 mg 11/26/18 22:00 11/30/18 21:27 Lipitor PO 40 mg QHS BECKIE Administration Dextrose 50 ml 11/25/18 23:02 D50w (25gm) Syringe IV PRN PRN Hypoglycemia Epoetin Blayne 10,000 unit 11/27/18 10:57 11/30/18 13:30 Procrit IV 10,000 unit NINO PRN Administration hemodialysis Glycerin 1 supp 11/27/18 19:04 Glycerin Adult 2 Gm VT QDAY PRN Constipation Heparin Sodium (Porcine) 5,000 unit 11/25/18 23:00 12/01/18 10:20 Heparin SUB-Q 5,000 unit Q12HR BECKIE Administration Hydralazine HCl 50 mg 11/26/18 06:00 12/01/18 06:14 Apresoline PO 50 mg Q8HR BECKIE Administration Sodium Chloride 1,000 mls @ 75 mls/hr 11/26/18 17:00 12/01/18 06:14 Nacl 0.9% 1000 Ml IV 75 mls/hr DIRECT BECKIE Administration Sodium Chloride 100 mls @ 999 mls/hr 11/27/18 10:57 Nacl 0.9% IV NINO PRN Hypotension Insulin Human Regular 0 units 11/26/18 07:30 12/01/18 10:23 Humulin R SUB-Q Not Given AC [facility] Protocol Insulin Human Regular 0 units 11/26/18 22:00 11/30/18 21:27 [facility]Q [facility] Polyethylene Glycol 17 gm 11/27/18 19:04 11/27/18 20:14 Miralax 3350 PO 17 gm BID PRN Administration Constipation Senna/Docusate Sodium 2 tab 11/27/18 19:04 Senokot S PO Q12H PRN Laxative Effect
--- NOTE | 2018-12-01 15:50 | Progress Note ---
Assessment and Plan Assessment and plan: Patient is a 68-year-old man with known stage V chronic kidney disease who was brought to the hospital for decreased responsiveness. Acute metabolic encephalopathy due to uremia-Patient is planned for dialysis, Mentation is improving CKD stage V progressing to ESRD-Nephrology input appreciated,Kidney function is worsening. s/p PermaCath followed by hemodialysis. Senile dementia-Patient is forgetful, and does not remember previous admission for the same indication. Continue supportive care NSTEMI (non-ST elevated myocardial infarction) type 2: stress test negative 11/30/18 AOCD: monitor CBC closely DVT prophylaxis heparin Neck pains at insertation for Permacath: I had Dr. Field come and evaluated at bedside Disposition, continue inpatient care, awaiting hemodialysis chair time set up==>Chair time at [facility] on Wednesday at 11:15am, will discharge tomorrow after hemodialysis History Interval history: Patient was seen and examined. Follow-up on current diagnosis of AMS. No overnight events reported to me. Patient denies any chest pain, shortness breath, nausea/vomiting or severe headaches. Imaging, nursing note, chart, labs and old chart reviewed. Discussed with patient. His only compliant is that the right vas-cath is causing neck pains Hospitalist Physical - Physical exam Narrative exam: Gen: WDWN, NAD, Awake, Alert, Orientated x 3 HEENT: NCAT, EOMI, PERRL, OP Clear Neck: supple, no adenopathy, no thyromegaly, no JVD CVS/Heart: RRR, normal S1S2, pulses present bilaterally Chest/Lungs: CTA B, Symmetrical chest expansion, good air entry bilaterally GI/Abdomen: soft, NTND, good bowel sounds, no guarding or rebound /Bladder: no suprapubic tenderness, no CVA or paraspinal tenderness Extermity/Skin: no c/c/e, no obvious rash MSK: FROM x 4 Neuro: CN 2-12 grossly intact, no new focal deficits Psych: calm - Constitutional Vitals: Temp Pulse Resp BP Pulse Ox 98.6 F 80 20 151/78 99 12/01/18 13:25 12/01/18 13:25 12/01/18 13:25 12/01/18 13:25 12/01/18 13:25 General appearance: Present: no acute distress Results - Labs CBC & Chem 7: 11/30/18 05:32 11/30/18 05:32 Labs: Laboratory Last Values WBC 5.6 K/mm3 (4.5-11.0) 11/30/18 05:32 RBC 3.03 M/mm3 (3.65-5.03) L 11/30/18 05:32 Hgb 9.5 gm/dl (11.8-15.2) L 11/30/18 05:32 Hct 28.0 % (35.5-45.6) L 11/30/18 05:32 MCV 92 fl (84-94) 11/30/18 05:32 MCH 31 pg (28-32) 11/30/18 05:32 MCHC 34 % (32-34) 11/30/18 05:32 RDW 15.8 % (13.2-15.2) H 11/30/18 05:32 Plt Count 185 K/mm3 (140-440) 11/30/18 05:32 Lymph % (Auto) 14.0 % (13.4-35.0) 11/25/18 17:05 [place] % (Auto) 4.7 % (0.0-7.3) 11/25/18 17:05 Eos % (Auto) 7.4 % (0.0-4.3) H 11/25/18 17:05 Baso % (Auto) 0.4 % (0.0-1.8) 11/25/18 17:05 Lymph # 0.9 K/mm3 (1.2-5.4) L 11/25/18 17:05 [place] # 0.3 K/mm3 (0.0-0.8) 11/25/18 17:05 Eos # 0.5 K/mm3 (0.0-0.4) H 11/25/18 17:05 Baso # 0.0 K/mm3 (0.0-0.1) 11/25/18 17:05 Seg Neutrophils % 73.5 % (40.0-70.0) H 11/25/18 17:05 Seg Neutrophils # 4.7 K/mm3 (1.8-7.7) 11/25/18 17:05 VBG pH 7.374 (7.320-7.420) 11/25/18 17:05 Sodium 138 mmol/L (137-145) 11/30/18 05:32 Potassium 3.7 mmol/L (3.6-5.0) 11/30/18 05:32 Chloride 101.0 mmol/L (98-107) 11/30/18 05:32 Carbon Dioxide 24 mmol/L (22-30) 11/30/18 05:32 17 mmol/L 11/30/18 05:32 BUN 26 mg/dL (9-20) H 11/30/18 05:32 5.7 mg/dL (0.8-1.5) H 11/30/18 05:32 Estimated GFR 12 ml/min 11/30/18 05:32 5 % 11/30/18 05:32 Glucose 84 mg/dL (75-100) 11/30/18 05:32 POC Glucose 106 (70-105) H 12/01/18 11:41 4.7 % (4-6) 11/26/18 15:55 Lactic Acid 1.50 mmol/L (0.7-2.0) 11/25/18 17:05 Calcium 8.9 mg/dL (8.4-10.2) 11/30/18 05:32 0.30 mg/dL (0.1-1.2) 11/25/18 17:05 AST 16 units/L (5-40) 11/25/18 17:05 ALT 7 units/L (7-56) 11/25/18 17:05 56 units/L (35-129) 11/25/18 17:05 164 units/L (55-170) 11/26/18 08:42 CK-MB (CK-2) 5.0 ng/mL (0.0-4.0) H 11/26/18 08:42 CK-MB (CK-2) Rel Index 3.0 (0-4) 11/26/18 08:42 0.167 ng/mL (0.00-0.029) H* 11/26/18 08:42 6.8 g/dL (6.3-8.2) 11/25/18 17:05 3.6 g/dL (3.9-5) L 11/25/18 17:05 1.1 % 11/25/18 17:05 Yellow (Yellow) 11/25/18 23:00 Clear (Clear) 11/25/18 23:00 8.0 (5.0-7.0) H 11/25/18 23:00 Ur Specific [place] 1.010 (1.003-1.030) 11/25/18 23:00 100 mg/dl mg/dL (Negative) 11/25/18 23:00 50 mg/dL (Negative) 11/25/18 23:00 Neg mg/dL (Negative) 11/25/18 23:00 Neg (Negative) 11/25/18 23:00 Neg (Negative) 11/25/18 23:00 Neg (Negative) 11/25/18 23:00 < 2.0 mg/dL (<2.0) 11/25/18 23:00 Ur Leukocyte Esterase Neg (Negative) 11/25/18 23:00 < 1.0 /HPF (0.0-6.0) 11/25/18 23:00 < 1.0 /HPF (0.0-6.0) 11/25/18 23:00 Salicylates < 0.3 mg/dL (2.8-20.0) L 11/25/18 17:05 Presumptive negative 11/25/18 23:00 Presumptive negative 11/25/18 23:00 Acetaminophen < 5.0 ug/mL (10.0-30.0) L 11/25/18 17:05 Ur Barbiturates Screen Presumptive negative 11/25/18 23:00 Ur Phencyclidine Scrn Presumptive negative 11/25/18 23:00 Ur Amphetamines Screen Presumptive negative 11/25/18 23:00 U Benzodiazepines Scrn Presumptive negative 11/25/18 23:00 Presumptive negative 11/25/18 23:00 U Marijuana (THC) Screen Presumptive negative 11/25/18 23:00 Disclamer 11/25/18 23:00 Plasma/Serum Alcohol < 0.01 % (0-0.07) 11/25/18 17:05 Active Medications - Current Medications Current Medications: Generic Name Dose Route Start Last Admin Trade Name Freq PRN Reason Stop Dose Admin Acetaminophen 650 mg 11/27/18 16:36 11/28/18 22:19 Tylenol PO 650 mg Q4H PRN Administration Pain, Mild (1-3) Acetaminophen/Hydrocodone Bitart 1 each 11/29/18 17:30 [place] 5/325 PO Q6H PRN Pain, Moderate (4-6) Aspirin 325 mg 11/26/18 10:00 12/01/18 10:20 Aspirin PO 325 mg QDAY BECKIE Administration Atorvastatin Calcium 40 mg 11/26/18 22:00 11/30/18 21:27 Lipitor PO 40 mg QHS BECKIE Administration Dextrose 50 ml 11/25/18 23:02 D50w (25gm) Syringe IV PRN PRN Hypoglycemia Epoetin Blayne 10,000 unit 11/27/18 10:57 11/30/18 13:30 Procrit IV 10,000 unit NINO PRN Administration hemodialysis Glycerin 1 supp 11/27/18 19:04 Glycerin Adult 2 Gm TX QDAY PRN Constipation Heparin Sodium (Porcine) 5,000 unit 11/25/18 23:00 12/01/18 10:20 Heparin SUB-Q 5,000 unit Q12HR BECKIE Administration Hydralazine HCl 50 mg 11/26/18 06:00 12/01/18 15:07 Apresoline PO 50 mg Q8HR BECKIE Administration Sodium Chloride 1,000 mls @ 75 mls/hr 11/26/18 17:00 12/01/18 06:14 Nacl 0.9% 1000 Ml IV 75 mls/hr DIRECT BECKIE Administration Sodium Chloride 100 mls @ 999 mls/hr 11/27/18 10:57 Nacl 0.9% IV NINO PRN Hypotension Insulin Human Regular 0 units 11/26/18 07:30 12/01/18 15:09 Humulin R SUB-Q Not Given AC [facility] Protocol Insulin Human Regular 0 units 11/26/18 22:00 11/30/18 21:27 Humulin R SUB-Q Not Given QHS [facility] Protocol Polyethylene Glycol 17 gm 11/27/18 19:04 11/27/18 20:14 Miralax 3350 PO 17 gm BID PRN Administration Constipation Senna/Docusate Sodium 2 tab 11/27/18 19:04 Senokot S PO Q12H PRN Laxative Effect Nutrition/Malnutrition Assess - Dietary Evaluation Nutrition/Malnutrition Findings: Nutrition Notes Start: 11/26/18 10:13 Freq: Status: Active Protocol: Document 11/29/18 10:15 DW (Rec: 11/29/18 10:53 DW [id number]) Co-Sign 11/29/18 10:15 LP Nutrition Notes Initial or Follow up Reassessment Current Diagnosis Acute Kidney Injury, Hypertension,Stroke Other Pertinent Diagnosis AMS Current Diet Renal Labs/Tests Reviewed Pertinent Medications Reviewed Height 6 ft Weight 72.575 kg [place] Body Weight (kg) 80.90 BMI 21.7 Subjective/Other Information Pt stated he has been eating good and appetite is better. Pt he is eating 100% of his meals. Breakfast had not eaten before visit but pt stated he would eat it later when he was hungry. Percent of energy/protein needs met: 84%/100% Burn Absent Trauma Absent #1 Nutrition Diagnosis Predicted suboptimal energy intake As Evidenced by Signs and Symptoms Pt is consuming 100% of his meals and improved appetite Diagnosis Progress(for reassessment Resolved documentation) Is patient on ventilator? No Is Patient Ambulatory and/or Out of Bed Yes REE-([place]-ambulatory/OOB) [ 2000.375 NUTR.[id number]] Kcal/Kg value to use for calculation 35 Approximate Energy Requirements Using 2540 kcal/Kg Calculation Used for Recommendations Kcal/kg Additional Notes Protein needs: 73-94g (1-1.3 g /kg) Fluids: 1 ml/kcal or per MD Nutrition Intervention Change Diet Order: Renal Goal #1 Continue to meet atleast 75% of energy and PRO needs Anticipated Discharge Needs: Renal diet Follow-Up By: 12/06/18 Additional Comments FU for stable intake
[2018-12-02] MEDS: APRESOLINE PO SCH ×2 (05:34→13:22)
[2018-12-02] MEDS: NACL 0.9% 1000 ML 1,000 ML IV SCH (07:29)
[2018-12-02] MEDS: HumuLIN R SUB-Q SCH ×3 (07:41→17:22)
[2018-12-02] MEDS: HEPARIN SUB-Q SCH (10:00)
[2018-12-02] MEDS: PROCRIT IV PRN (11:53)
[2018-12-02 13:20] VITALS: BP 141/80
[2018-12-02] MEDS: ASPIRIN PO SCH (13:21)
--- NOTE | 2018-12-02 13:46 | Discharge Summary ---
Providers - Providers Date of Admission: 11/25/18 22:52 Date of discharge: 12/02/18 Attending physician: JAGDEEP MCKINNEY 11/26/18 10:40 Consult to Physician [CONS] Routine Comment: Consulting Provider: TENZIN BNEITEZ Physician Instructions: Reason For Exam: ESRD ON DIALYSIS 11/26/18 11:25 Consult to Physician [CONS] Routine Comment: Consulting Provider: GROVER LOUIE Physician Instructions: Reason For Exam: elevated trop 11/27/18 10:56 Consult to Case Management [CONS] Routine Services Needed at Discharge: Other Notified:: ESTEFANIA Comment:: arrange outpatient dialysis at [facility] Consult to Physician [CONS] Routine Comment: Consulting Provider: REJI VÁZQUEZ Physician Instructions: Reason For Exam: CKD progressing to ESRD. Needs Permacath Primary care physician: STEEL SASH ERECTOR Hospitalization Condition: Stable Hospital course: Patient is a 68-year-old man with known stage V chronic kidney disease who was brought to the hospital for decreased responsiveness. Acute metabolic encephalopathy due to uremia-Patient is planned for dialysis, Mentation is improving CKD stage V progressing to ESRD-Nephrology input appreciated,Kidney function is worsening. s/p PermaCath followed by hemodialysis. Senile dementia-mild NSTEMI (non-ST elevated myocardial infarction) type 2: stress test negative 11/30/18 AOCD: monitor CBC closely DVT prophylaxis heparin Neck pains at insertation for Permacath: I had Dr. Field come and evaluated at bedside Disposition, continue inpatient care, awaiting hemodialysis chair time set up==>Chair time at [facility] on Wednesday at 11:15am, will discharge tomorrow after hemodialysis Disposition: CA-01 TO HOME OR SELFCARE Time spent for discharge: 35 minutes Core Measure Documentation - Palliative Care Palliative Care/ Comfort Measures: Not Applicable - Core Measures Any of the following diagnoses?: none - VTE Discharge Requirements Deep Vein Thrombosis/Pulmonary Embolism Present on Admission: No Has pt received <5 days of overlap therapy or INR<2.0: No Anticoagulant overlap therapy prescribed at discharge: No Contraindication No Overlap Therapy order at DC: Not Indicated Exam - Physical Exam Narrative exam: Gen: WDWN, NAD, Awake, Alert, Orientated x 3 HEENT: NCAT, EOMI, PERRL, OP Clear Neck: supple, no adenopathy, no thyromegaly, no JVD CVS/Heart: RRR, normal S1S2, pulses present bilaterally Chest/Lungs: CTA B, Symmetrical chest expansion, good air entry bilaterally GI/Abdomen: soft, NTND, good bowel sounds, no guarding or rebound /Bladder: no suprapubic tenderness, no CVA or paraspinal tenderness Extermity/Skin: no c/c/e, no obvious rash MSK: FROM x 4 Neuro: CN 2-12 grossly intact, no new focal deficits Psych: calm - Constitutional Vitals: Temp Pulse Resp BP Pulse Ox 98.8 F 91 H 18 141/80 100 12/02/18 13:18 12/02/18 13:18 12/02/18 13:18 12/02/18 13:18 12/02/18 13:18 Plan Activity: up only with assistance, fall precautions, other (no strenous activity unless cleared by PCP or Principal Systems Engineer) Diet: renal Special Instructions: record daily weights Additional Instructions: Report to [facility] on Wednesday at 11:15am Follow up with: LUIS SWARTZ MD [Staff Physician] - 7 Days (Follow up in our [place] office with Dr. Dickson on 12/21/2018 @ 10:30AM. ) [facility] MD RAI [Referring] - 3-5 Days TENZIN BENITEZ MD [Staff Physician] - 7 Days REJI VÁZQUEZ MD [Staff Physician] - 7 Days Prescriptions: AtorvaSTATin [Lipitor] 40 mg PO QHS #30 tablet hydrALAZINE [Apresoline TAB] 2 tab PO TID #120 tablet Aspirin 325 mg PO QDAY #30 tablet Polyethylene Glycol 3350 [Miralax 3350] 17 gm PO QDAY PRN #30 powd.pack PRN Reason: Constipation HYDROcodone/APAP 5-325 [[place] 5-325 mg TAB] 1 each PO Q6H PRN #8 tablet PRN Reason: Pain , Severe (7-10)
--- NOTE | 2018-12-02 14:42 | Progress Note ---
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 s/p permcath placement at this time and will continue on MWF HD schedule as an inpatient; per CM notes, he has been set up for outpatient HD at [facility] with first session on Wednesday. From a nephrology standpoint patient is stable for DC. (2) Hypertensive chronic kidney disease with stage 1 through stage 4 chronic kidney disease, or unspecified chronic kidney disease Current Visit: Yes Status: Chronic Plan to address problem: Continue on current regimen and closely monitor. (3) Type 2 diabetes mellitus with diabetic nephropathy Current Visit: Yes Status: Chronic Plan to address problem: DM management per primary attending. (4) Anemia in chronic illness Current Visit: Yes Status: Acute Plan to address problem: Monitor H/H. BRIDGET with HD to maintain within goal of 10-11.5. (5) Encephalopathy Current Visit: No Status: Acute Plan to address problem: Improved at this time back to baseline. Subjective Date of service: 12/02/18 Principal diagnosis: ? CKD progressing to end-stage renal disease Interval history: Tolerated HD today without any issues. Pending transportation for discharge today. Will follow up at [facility] on Wednesday. Objective - Vital Signs Vital signs: Vital Signs - 12hr 12/02/18 12/02/18 12/02/18 05:34 07:13 08:06 Temperature 98.6 F Pulse Rate 85 94 H Respiratory 18 16 Rate Blood Pressure 155/79 142/59 O2 Sat by Pulse 98 Oximetry 12/02/18 12/02/18 12/02/18 09:10 09:13 09:15 Temperature 98.6 F Pulse Rate 101 H 77 78 Respiratory 16 Rate Blood Pressure 143/80 150/78 151/80 O2 Sat by Pulse Oximetry 12/02/18 12/02/18 12/02/18 09:30 09:45 10:00 Temperature Pulse Rate 98 H 94 H 95 H Respiratory Rate Blood Pressure 134/76 142/79 151/81 O2 Sat by Pulse Oximetry 12/02/18 12/02/18 12/02/18 10:15 10:30 10:45 Temperature Pulse Rate 90 90 90 Respiratory Rate Blood Pressure 142/79 147/78 154/83 O2 Sat by Pulse Oximetry 12/02/18 12/02/18 12/02/18 11:00 11:15 11:30 Temperature Pulse Rate 90 83 84 Respiratory Rate Blood Pressure 141/73 142/78 141/80 O2 Sat by Pulse Oximetry 12/02/18 12/02/18 12/02/18 11:45 12:00 13:18 Temperature 98.8 F Pulse Rate 81 84 91 H Respiratory 18 Rate Blood Pressure 157/85 165/90 141/80 O2 Sat by Pulse 100 Oximetry - General Appearance General appearance: well-developed, well-nourished, appears stated age EENT: ATNC, PERRL Neck: no JVD, no thyromegaly Respiratory: Present: Clear to Ascultation Cardiology: regular, S1S2 Gastrointestinal: normal, normoactive bowel sounds Integumentary: no rash, warm and dry Neurologic: no focal deficit, no asterixis, alert and oriented x3 Musculoskeletal: other (-edema ) Psychiatric: mood/affect appropriate, cooperative - Lab 11/30/18 05:32 11/30/18 05:32 Most recent lab results Calcium 8.9 mg/dL (8.4-10.2) 11/30/18 05:32 - Allied health notes Allied health notes reviewed: nursing Medications & Allergies - Medications Allergies/Adverse Reactions: Allergies No Known Allergies Allergy (Unverified 11/20/18 16:31) Home Medications: Home Medications Medication Instructions Recorded Confirmed Last Taken Type Acetaminophen [Acetaminophen TAB] 1 tab PO Q4H PRN #15 tablet 12/02/18 Unknown Rx Aspirin 325 mg PO QDAY #30 tablet 12/02/18 Unknown Rx AtorvaSTATin [Lipitor] 40 mg PO QHS #30 tablet 12/02/18 Unknown Rx Epoetin Blayne 10,000 Unit [Procrit] 10,000 unit IV NINO PRN #1 vial 12/02/18 U nknown Rx HYDROcodone/APAP 5-325 [[place] 1 each PO Q6H PRN #8 tablet 12/02/18 Unknown Rx 5-325 mg TAB] Polyethylene Glycol 3350 [Miralax 17 gm PO QDAY PRN #30 powd.pack 12/02/18 Unknown Rx 3350] hydrALAZINE [Apresoline TAB] 2 tab PO TID #120 tablet 12/02/18 Unknown Rx Active Medications: Generic Name Dose Route Start Last Admin Trade Name Freq PRN Reason Stop Dose Admin Acetaminophen 650 mg 11/27/18 16:36 11/28/18 22:19 Tylenol PO 650 mg Q4H PRN Administration Pain, Mild (1-3) Acetaminophen/Hydrocodone Bitart 1 each 11/29/18 17:30 [place] 5/325 PO Q6H PRN Pain, Moderate (4-6) Aspirin 325 mg 11/26/18 10:00 12/02/18 13:21 Aspirin PO 325 mg QDAY BECKIE Administration Atorvastatin Calcium 40 mg 11/26/18 22:00 12/01/18 21:15 Lipitor PO 40 mg QHS BECKIE Administration Dextrose 50 ml 11/25/18 23:02 D50w (25gm) Syringe IV PRN PRN Hypoglycemia Epoetin Blay[place] 10,000 unit 11/27/18 10:57 12/02/18 11:53 Procrit IV 10,000 unit NINO PRN Administration hemodialysis Glycerin 1 supp 11/27/18 19:04 Glycerin Adult 2 Gm MT QDAY PRN Constipation Heparin Sodium (Porcine) 5,000 unit 11/25/18 23:00 12/02/18 10:00 Heparin SUB-Q Not Given Q12HR BECKIE Hydralazine HCl 50 mg 11/26/18 06:00 12/02/18 13:22 Apresoline PO 50 mg Q8HR BECKIE Administration Sodium Chloride 1,000 mls @ 75 mls/hr 11/26/18 17:00 12/02/18 07:29 Nacl 0.9% 1000 Ml IV 75 mls/hr DIRECT BECKIE Administration Sodium Chloride 100 mls @ 999 mls/hr 11/27/18 10:57 Nacl 0.9% IV NINO PRN Hypotension Insulin Human Regular 0 units 11/26/18 07:30 12/02/18 13:14 Humulin R SUB-Q Not Given AC [facility] Protocol Insulin Human Regular 0 units 11/26/18 22:00 12/01/18 21:34 Humulin R SUB-Q Not Given QHS [facility] Protocol Polyethylene Glycol 17 gm 11/27/18 19:04 11/27/18 20:14 Miralax 3350 PO 17 gm BID PRN Administration Constipation Senna/Docusate Sodium 2 tab 11/27/18 19:04 Senokot S PO Q12H PRN Laxative Effect
[2018-12-02] MEDS ORDERED: NACL 0.9 (PRIMING MACHINE ONLY DIALYSIS) MC ONE (21:39)
== END 2018-12-02 19:40 | disposition home or self-care (01) | DRG 673 ==
LOC: ED 16:03 → 2B-ACE 22:52
PROVIDERS: ADMIT Internal Medicine; ATTEND Internal Medicine
PROC: 0JH63XZ Insertion of Tunneled Vascular Access Device into Chest Subcutaneous Tissue and Fascia, Percutaneous Approach (ICD-10-PCS; principal; 2018-11-28)
PROC: 02H633Z Insertion of Infusion Device into Right Atrium, Percutaneous Approach (ICD-10-PCS; 2018-11-28)
PROC: B2141ZZ Fluoroscopy of Right Heart using Low Osmolar Contrast (ICD-10-PCS; 2018-11-28)
PROC: B244ZZZ Ultrasonography of Right Heart (ICD-10-PCS; 2018-11-28)
PROC: 5A1D70Z Performance of Urinary Filtration, Intermittent, Less than 6 Hours Per Day (ICD-10-PCS; 2018-11-28)
PROC: 5A1D70Z Performance of Urinary Filtration, Intermittent, Less than 6 Hours Per Day (ICD-10-PCS; 2018-11-30)
PROC: 5A1D70Z Performance of Urinary Filtration, Intermittent, Less than 6 Hours Per Day (ICD-10-PCS; 2018-12-02)
DX: N17.9 Acute kidney failure, unspecified (principal); G93.41 Metabolic encephalopathy; I21.A1 Myocardial infarction type 2; I12.0 Hypertensive chronic kidney disease with stage 5 chronic kidney disease or end stage renal disease; N18.6 End stage renal disease; F10.10 Alcohol abuse, uncomplicated; Y90.9 Presence of alcohol in blood, level not specified; E78.00 Pure hypercholesterolemia, unspecified; I35.1 Nonrheumatic aortic (valve) insufficiency; F03.90 Unspecified dementia, unspecified severity, without behavioral disturbance, psychotic disturbance, mood disturbance, and anxiety; E11.22 Type 2 diabetes mellitus with diabetic chronic kidney disease; D63.1 Anemia in chronic kidney disease; E11.21 Type 2 diabetes mellitus with diabetic nephropathy; E11.65 Type 2 diabetes mellitus with hyperglycemia; Z99.2 Dependence on renal dialysis; Z79.82 Long term (current) use of aspirin; Z86.73 Personal history of transient ischemic attack (TIA), and cerebral infarction without residual deficits; M54.2 Cervicalgia; Z79.84 Long term (current) use of oral hypoglycemic drugs
CPT/HCPCS: 36415; 36558; 70450; 71045; 77001; 78452; 80048; 80053; 80307; 80320; 81001; 82140; 82550; 82553; 82805; 82962; 83036; 84484; 85025; 85027; 93005; 93010; 93017; 93970; G0378; A9270-GY; A9502; C1750; G0480; J0885; J1644; J1815; J2250; J2785; J3010; J7030; J7050

== ENCOUNTER 2020-01-08 15:38 | Emergency (ER) | payer MEDICARE ==
[2020-01-08 16:19] VITALS: BP 149/77
[2020-01-08] MEDS ORDERED: DEXTROSE 50% IN WATER (25GM) 50 ML VIAL IV PRN (16:38)
--- NOTE | 2020-01-08 16:39 | Emergency Department Report ---
ED General Adult HPI - General Chief complaint: Hypoglycemia Stated complaint: HYPERGYLCEMIA PUI?: No Time Seen by Provider: 01/08/20 16:14 Source: patient, EMS (EMS documentation not available at time of chart dictation), RN notes reviewed, old records reviewed Mode of arrival: Stretcher Limitations: Other (Patient is a poor historian) - History of Present Illness Initial comments: The patient was evaluated in the emergency department for symptoms described in the history of present illness. He/she was evaluated in the context of the global COVID-19 pandemic, which necessitated consideration that the patient might be at risk for infection with the virus that causes COVID-19. Institutional protocols and algorithms that pertain to the evaluation of patients at risk for COVID-19 are in a state of rapid change based on information released by regulatory bodies including the CDC and federal and state organizations. These policies and algorithms were followed during the patient's care in the emergency department. Please note that these policies, procedures and recommendations changed on a rapid basis. This is a 69-year-old gentleman. 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 It is not known if this was symptomatic, and he was thus referred to the emergency room. The patient himself denies physical pain. He denies headache, neck pain, chest pain, abdominal pain, shortness of breath, nausea, vomiting and diarrhea. He endorses chronic dysuria. He denies testicular pain. He has no complaints at this time. He is asking to be discharged. 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 Simmons. -: Sudden Severity scale (0 -10): 0 Consistency: now resolved Improves with: none Worsens with: none - Related Data Home Medications Medication Instructions Recorded Confirmed Last Taken Ferric Citrate (Nf) [Auryxia] 420 mg PO TID 01/08/20 01/08/20 01/08/20 Previous Rx's Medication Instructions Recorded Last Taken Type Aspirin 325 mg PO QDAY #30 tablet 12/02/18 01/08/20 Rx AtorvaSTATin [Lipitor] 40 mg PO QHS #30 tablet 12/02/18 01/07/20 Rx Epoetin Blayne 10,000 Unit [Procrit] 10,000 unit IV NINO PRN #1 vial 12/02/18 11/20/19 10:00 Rx hydrALAZINE [Apresoline TAB] 2 tab PO TID #120 tablet 12/02/18 11/20/19 14:00 Rx HYDROcodone/APAP 5-325 [[place] 1 each PO Q6H PRN tablet 11/22/19 Unknown Rx 5-325 mg TAB] polyethylene glycoL 3350 [Miralax 17 gm PO QDAY PRN #30 powd.pack 11/22/19 Unknown Rx 3350] Allergies Allergy/AdvReac Type Severity Reaction Status Date / Time No Known Allergies Allergy Unverified 11/20/18 16:31 ED Review of Systems ROS: Stated complaint: HYPERGYLCEMIA Other details as noted in HPI Constitutional: denies: fever Eyes: denies: eye discharge ENT: denies: epistaxis Respiratory: denies: cough Cardiovascular: denies: chest pain Gastrointestinal: denies: abdominal pain Genitourinary: dysuria Musculoskeletal: denies: back pain Neurological: denies: weakness ED Past Medical Hx - Past Medical History Previous Medical History?: Yes Hx Hypertension: Yes Hx Congestive Heart Failure: No Hx Diabetes: No Hx Renal Disease: Yes (MWF) Hx Asthma: No Hx COPD: No - Surgical History Past Surgical History?: Yes Additional Surgical History: Left upper arm fistula. - Social History Smoking Status: Unknown if ever smoked Substance Use Type: None - Medications Home Medications: Home Medications Medication Instructions Recorded Confirmed Last Taken Type Aspirin 325 mg PO QDAY #30 tablet 12/02/18 01/08/20 01/08/20 Rx AtorvaSTATin [Lipitor] 40 mg PO QHS #30 tablet 12/02/18 01/08/20 01/07/20 Rx Epoetin Blayne 10,000 Unit [Procrit] 10,000 unit IV NINO PRN #1 vial 12/02/18 01/08/20 11/20/19 10:00 Rx hydrALAZINE [Apresoline TAB] 2 tab PO TID #120 tablet 12/02/18 01/08/20 11/20/19 14:00 Rx HYDROcodone/APAP 5-325 [[place] 1 each PO Q6H PRN tablet 11/22/19 01/08/20 Unknown Rx 5-325 mg TAB] polyethylene glycoL 3350 [Miralax 17 gm PO QDAY PRN #30 powd.pack 11/22/1912/20 Unknown Rx 3350] Ferric Citrate (Nf) [Auryxia] 420 mg PO TID 01/08/20 01/08/20 01/08/20 History ED Physical Exam - General Limitations: Other (Patient is a poor historian) General appearance: alert, in no apparent distress - Head Head exam: Present: atraumatic, normocephalic - Eye Eye exam: Present: normal appearance, EOMI. Absent: nystagmus - ENT ENT exam: Present: normal exam, normal orophraynx, mucous membranes moist, normal external ear exam - Neck Neck exam: Present: normal inspection, full ROM. Absent: tenderness, meningism us - Respiratory Respiratory exam: Present: normal lung sounds bilaterally. Absent: respiratory distress, wheezes, rales, rhonchi, stridor, decreased breath sounds - Cardiovascular Cardiovascular Exam: Present: regular rate, normal rhythm, systolic murmur (2 out of 6 systolic murmur, heard best at right and left second intercostal space). Absent: bradycardia, tachycardia, irregular rhythm, diastolic murmur, rubs, gallop - GI/Abdominal GI/Abdominal exam: Present: soft. Absent: distended, tenderness, guarding, rebound, rigid, pulsatile mass - Rectal Rectal exam: Present: deferred - Extremities Exam Extremities exam: Present: normal inspection (There is a left upper extremity fistula, without redness, pus or streaking), full ROM, other (2+ pulses noted in the bilateral upper and lower extremities. There is no palpable cord. negative Homans sign. Muscular compartments are soft. The pelvis is stable.). Absent: pedal edema, calf tenderness - Back Exam Back exam: Present: normal inspection, full ROM. Absent: tenderness, CVA tenderness (R), CVA tenderness (L), paraspinal tenderness, vertebral tenderness - Neurological Exam Neurological exam: Present: altered, other (No facial droop. Tongue midline. Extraocular movements intact bilaterally. Facial sensation intact to light touch in V1, V2, V3 distribution bilaterally. 5 and a 5 strength in 4 extremities. Sensation intact to light touch in 4 extremities.) - Psychiatric Psychiatric exam: Present: flat affect - Skin Skin exam: Present: warm, dry, intact, normal color. Absent: rash ED Course Vital Signs 01/08/20 01/08/20 16:19 17:16 Temperature 98.7 F 98.7 F Pulse Rate 91 H Respiratory 16 Rate Blood Pressure 149/77 [Right] O2 Sat by Pulse 97 Oximetry - Reevaluation(s) Reevaluation #1: 01/08/20 17:05 Differential diagnosis, including but limited to: Hypoglycemia, now resolved, pneumonia, urinary tract infection, thyroid derangement, electrolyte randell angement, machine error Assessment and plan: 69-year-old gentleman, with no acute complaints, who as per review of prior medications, does not appear to be in any diabetic medications, presenting with resolved hypoglycemia. Check appropriate laboratory studies, urinalysis, x-ray the chest, EKG, we have requested that nursing team reconcile medications, reassess. Place patient on Accu-Cheks, administer glucose as needed. Reassess after data points have resulted Reevaluation #2: 01/08/20 18:26 Patient reassessed multiple times. He is in no acute distress. Patient is refusing/requiring straight catheterization for urinalysis. He has not been able to produce a urine sample on his own. He is asking to go home. I explained to the patient multiple times that a urinalysis is recommended to assess for urinary tract infection/bacteriuria, though which may be potentially causative factor in his history of hypoglycemia. He is adamantly refusing catheterization. At this moment, patient presents as alert and oriented, clinically sober, exhibiting decision-making capacity and free from distracting injury. Risks of leaving without a complete evaluation/urinalysis are discussed with the patient, with nurse Gloria Leiva present. Specifically explained to the patient that he risks , disability, paralysis, permanent loss of quality of life/recurrent hypoglycemia. Patient understands that he may return to the emergency room right away if and when he changes his mind 01/08/20 18:27 ED Medical Decision Making - Lab Data Result diagrams: 01/08/20 16:47 01/08/20 16:47 Vital Signs 01/08/20 16:19 Temperature 98.7 F Pulse Rate 91 H Respiratory 16 Rate Blood Pressure 149/77 [Right] O2 Sat by Pulse 97 Oximetry - EKG Data -: EKG Interpreted by Ga EKG shows normal: sinus rhythm Rate: normal - EKG Data 01/08/20 17:25 Sinus rhythm, 92 bpm, there is a left axis deviation, there are premature atrial complexes. There is a first-degree AV block, borderline prolonged QRS, left anterior fascicular block, motion artifact, no endorsement of chest pain. The EKG is abnormal. The EKG is not a STEMI. The EKG today is unchanged from prior EKG from October 2019 - Radiology Data Radiology results: pending, report reviewed Print Report Referring Physician: EDITA ZARATE Patient Name: WILLY RUTH Date of : 1950 Sex: Male Report Date: 2020-01-08 Report Status: Finalized Findings [facility] [address] [place] [address] XRay Report Signed Patient: WILLY RUTH MR#: [id number] : 1950 Acct:[id number] Age/Sex: 69 / M ADM Date: 01/08/20 Loc: ED Attending Dr: Ordering Physician: EDITA ZARATE MD Date of Service: 01/08/20 Procedure(s): XR chest 1V ap Accession Number(s): [id number] cc: EDITA ZARATE MD Fluoro Time In Minutes: CHEST 1 VIEW 01/08/2020 3:54 PM INDICATION / CLINICAL INFORMATION: Hypoglycemia. Evaluate for pneumonia/infiltrate. COMPARISON: Chest one view from 11/20/2019. FINDINGS: SUPPORT DEVICES: None. HEART / MEDIASTINUM: The cardiac silhouette is larger with similar aortic atherosclerosis. LUNGS / PLEURA: No significant pulmonary or pleural abnormality. No pneumothorax. ADDITIONAL FINDINGS: No significant additional findings. IMPRESSION: 1. No radiographic evidence of pneumonia/other acute infiltrative process. 2. Interval enlargement of the cardiac silhouette. Signer Name: Timmy Mccann MD Signed: 01/08/2020 4:59 PM Workstation Name: [id number] Transcribed By: [place] Dictated By: Timmy Mccann MD Electronically Authenticated By: Timmy Mccann MD Signed Date/Time: 01/08/201658 DD/ 57 Critical care attestation.: If time is entered above; I have spent that time in minutes in the direct care of this critically ill patient, excluding procedure time. ED Disposition Clinical Impression: ESRD (end stage renal disease), History of hypoglycemia Disposition: DC-07 LEFT AGAINST MED ADVICE Is pt being admited?: No Does the pt Need Aspirin: No Condition: Stable Additional Instructions: As we discussed, you have left the hospital/emergency room AGAINST MEDICAL ADVICE. By leaving, you risked , disability, paralysis, permanent loss of quality of life. The ER is open 24 hours a day, 7 days a week. It never closes. Please return to the emergency room right away if and when you change your mind. If you decide not to return to the emergency room, please follow-up with the listed physician referrals as soon as possible. Recommend that patient avoid medications that would lower blood sugar level. Please make certain to eat at least 3-5 meals every day, in accordance with a diabetic appropriate salt limited diet. Referrals: PRIMARY CARE, [Primary Care Provider] - 3-5 Days ALETHA SIMMONS DO [Staff Physician] - [facility]
[2020-01-08 17:04] LABS: Hematocrit 32.8 % (35.5-45.6); Hemoglobin 11.2 gm/dl (11.8-15.2); Mean Corpuscular HGB Conc 34 % (32-34); Mean Corpuscular Volume 99 fl (84-94); Platelet Count 225 K/mm3 (140-440); Red Blood Count 3.32 M/mm3 (3.65-5.03); Red Cell Distribution Width 17.6 % (13.2-15.2)
--- NOTE | 2020-01-08 17:05 | XRay Report ---
CHEST 1 VIEW 01/08/2020 3:54 PM INDICATION / CLINICAL INFORMATION: Hypoglycemia. Evaluate for pneumonia/infiltrate. COMPARISON: Chest one view from 11/20/2019. FINDINGS: SUPPORT DEVICES: None. HEART / MEDIASTINUM: The cardiac silhouette is larger with similar aortic atherosclerosis. LUNGS / PLEURA: No significant pulmonary or pleural abnormality. No pneumothorax. ADDITIONAL FINDINGS: No significant additional findings. IMPRESSION: 1. No radiographic evidence of pneumonia/other acute infiltrative process. 2. Interval enlargement of the cardiac silhouette. Signer Name: Timmy Mccann MD Signed: 01/08/2020 4:59 PM Workstation Name: [id number]
[2020-01-08 17:22] LABS: Calcium 9.6 mg/dL (8.4-10.2)
[2020-01-08 18:47] LABS: Color,Urine TNR (Yellow)
[2020-01-08 18:48] LABS: Bilirubin,Urine TNR (Negative); Blood,Urine TNR (Negative); Ictotest,Urine TNR (Negative); PH,Urine TNR (5.0-7.0); Protein,Urine TNR mg/dL (Negative); RBC,Urine TNR /HPF (0.0-6.0); Urobilinogen,Urine TNR mg/dL (<2.0)
[2020-01-08 18:49] LABS: Amorphous Crystals,Urine TNR; Bacteria,Urine TNR /HPF (Negative); Broad Casts,Urine TNR /LPF; Calcium Carbonate Crystals,Ur TNR; Calcium Oxalate Crystals,Urine TNR; Calcium Phosphate Crystals,Ur TNR; Cystine Crystals,Urine TNR; Epithelial Casts,Urine TNR /HPF; Fatty Casts,Urine TNR /LPF; Granular Casts,Urine TNR /LPF; Hyaline Casts,Urine TNR /LPF; Mucus,Urine TNR /HPF; Other Casts,Urine TNR /LPF; Other Crystals,Urine TNR; Red Blood Cell Casts,Urine TNR /LPF; Renal Epithelial Cells,Urine TNR /LPF; Sperm,Urine TNR /HPF (NP); Trichomonas,Urine TNR /HPF; Triple Phosphate Crystal,Urine TNR; Tyrosine Crystal,Urine TNR; WBC,Urine TNR /HPF (0.0-6.0); White Blood Cell Casts,Urine TNR /LPF
== END 2020-01-08 20:35 | disposition left against medical advice (07) ==
LOC: ED 15:38
DX: I12.0 Hypertensive chronic kidney disease with stage 5 chronic kidney disease or end stage renal disease (principal); N18.6 End stage renal disease; Z79.899 Other long term (current) drug therapy; Z98.890 Other specified postprocedural states; Z86.39 Personal history of other endocrine, nutritional and metabolic disease
CPT/HCPCS: 36415; 71045; 80048; 80320; 81001; 82550; 82962; 83735; 84443; 85027; 93005; G0480

== ENCOUNTER 2020-07-12 16:06 | Inpatient (IN) | payer MEDICARE ==
--- NOTE | 2020-07-12 21:08 | Emergency Department Report ---
ED General Adult HPI - General Chief complaint: Altered Mental Status Stated complaint: AMS Time Seen by Provider: 07/12/20 19:56 Source: EMS Mode of arrival: Stretcher Limitations: No Limitations - History of Present Illness Initial comments: Patient presents to the emergency department via EMS after dialysis. The patient presents to the emergency department for altered mental status. The patient is very pleasant and conversational on initial evaluation but is confused to person, place, time. -: Sudden Severity scale (0 -10): 0 Consistency: constant Improves with: none Worsens with: none Associated Symptoms: denies other symptoms Treatments Prior to Arrival: none - Related Data Previous Rx's Medication Instructions Recorded Last Taken Type Epoetin Blayne 10,000 Unit [Procrit] 10,000 unit IV NINO PRN #1 vial 12/02/18 11/20/19 10:00 Rx HYDROcodone/APAP 5-325 [[place] 1 each PO Q6H PRN tablet 11/22/19 Unknown Rx 5-325 mg TAB] polyethylene glycoL 3350 [Miralax 17 gm PO QDAY PRN #30 powd.pack 11/22/19 Unknown Rx 3350] Acetaminophen [Acetaminophen TAB] 650 mg PO Q4H PRN tablet 02/08/20 Unknown Rx Aspirin 325 mg PO QDAY #30 tablet 02/08/20 Unknown Rx AtorvaSTATin [Lipitor] 40 mg PO QHS #30 tablet 02/08/20 Unknown Rx Ferric Citrate (Nf) [Auryxia] 420 mg PO TID #90 tab 02/08/20 Unknown Rx Metoprolol [Lopressor TAB] 100 mg PO BID #120 tablet 02/08/20 Unknown Rx amLODIPine 5 mg PO QDAY #30 tablet 02/08/20 Unknown Rx hydrALAZINE [Apresoline TAB] 50 tab PO TID #180 tablet 02/08/20 Unknown Rx Allergies Allergy/AdvReac Type Severity Reaction Status Date / Time No Known Allergies Allergy Unverified 11/20/18 16:31 ED Review of Systems ROS: Stated complaint: AMS Other details as noted in HPI Comment: Unobtainable due to pts medical conditions ED Past Medical Hx - Past Medical History Previous Medical History?: Yes Hx Hypertension: Yes Hx Renal Disease: Yes (MWF) - Surgical History Past Surgical History?: Yes Additional Surgical History: Left upper arm fistula. - Social History Smoking Status: Never Smoker - Medications Home Medications: Home Medications Medication Instructions Recorded Confirmed Last Taken Type Epoetin Blayne 10,000 Unit [Procrit] 10,000 unit IV NINO PRN #1 vial 12/02/18 02/05/20 11/20/19 10:00 Rx HYDROcodone/APAP 5-325 [[place] 1 each PO Q6H PRN tablet 11/22/19 02/05/20 Unknown Rx 5-325 mg TAB] polyethylene glycoL 3350 [Miralax 17 gm PO QDAY PRN #30 powd.pack 11/22/19 02/05/20 Unknown Rx 3350] Acetaminophen [Acetaminophen TAB] 650 mg PO Q4H PRN tablet 02/08/20 Unknown Rx Aspirin 325 mg PO QDAY #30 tablet 02/08/20 Unknown Rx AtorvaSTATin [Lipitor] 40 mg PO QHS #30 tablet 02/08/20 Unknown Rx Ferric Citrate (Nf) [Auryxia] 420 mg PO TID #90 tab 02/08/20 Unknown Rx Metoprolol [Lopressor TAB] 100 mg PO BID #120 tablet 02/08/20 Unknown Rx amLODIPine 5 mg PO QDAY #30 tablet 02/08/20 Unknown Rx hydrALAZINE [Apresoline TAB] 50 tab PO TID #180 tablet 02/08/20 Unknown Rx ED Physical Exam - General Limitations: No Limitations General appearance: alert, in no apparent distress, other (Confused/altered) - Head Head exam: Present: atraumatic, normocephalic - Eye Eye exam: Present: normal appearance - ENT ENT exam: Present: mucous membranes moist - Neck Neck exam: Present: normal inspection - Respiratory Respiratory exam: Present: normal lung sounds bilaterally. Absent: respiratory distress - Cardiovascular Cardiovascular Exam: Present: normal rhythm, tachycardia. Absent: systolic murmur, diastolic murmur, rubs, gallop - GI/Abdominal GI/Abdominal exam: Present: soft, normal bowel sounds. Absent: distended, tenderness - Rectal Rectal exam: Present: deferred - Extremities Exam Extremities exam: Present: normal inspection - Back Exam Back exam: Present: normal inspection - Neurological Exam Neurological exam: Present: altered - Psychiatric Psychiatric exam: Present: other (Not able to assess due to the patient's condition) - Skin Skin exam: Present: warm, dry, intact, normal color. Absent: rash ED Course Vital Signs 04/23/21 04/23/21 04/23/21 19:26 19:29 19:30 Temperature 98 F Pulse Rate 99 H 115 H 106 H Respiratory 25 H 18 17 Rate Blood Pressure 168/111 168/111 O2 Sat by Pulse 96 99 95 Oximetry 07/12/20 07/12/20 07/12/20 20:00 20:30 21:00 Temperature Pulse Rate 107 H 102 H 99 H Respiratory 22 17 19 Rate Blood Pressure 175/106 164/112 168/104 O2 Sat by Pulse 97 97 99 Oximetry 07/12/20 07/12/20 07/12/20 21:34 22:00 22:30 Temperature Pulse Rate 104 H 98 H 101 H Respiratory 23 21 20 Rate Blood Pressure O2 Sat by Pulse 96 96 96 Oximetry 07/12/20 07/13/20 07/13/20 23:30 00:30 01:30 Temperature Pulse Rate 101 H 121 H 128 H Respiratory 25 H 22 24 Rate Blood Pressure O2 Sat by Pulse 94 96 97 Oximetry ED Medical Decision Making - Lab Data Result diagrams: 07/12/20 21:14 07/12/20 21:14 Lab Results 07/12/20 07/12/20 07/12/20 Range/Units 21:14 21:14 21:14 WBC 4.0 L (4.5-11.0) K/mm3 RBC 3.62 L (3.65-5.03) M/mm3 Hgb 12.7 (11.8-15.2) gm/dl Hct 37.4 (35.5-45.6) % MCV 103 H (84-94) fl MCH 35 H (28-32) pg MCHC 34 (32-34) % RDW 17.2 H (13.2-15.2) % Plt Count 114 L (140-440) K/mm3 Lymph % (Auto) 37.5 H (13.4-35.0) % [place] % (Auto) 8.9 H (0.0-7.3) % Eos % (Auto) 9.6 H (0.0-4.3) % Baso % (Auto) 0.7 (0.0-1.8) % Lymph # (Auto) 1.5 (1.2-5.4) K/mm3 [place] # (Auto) 0.4 (0.0-0.8) K/mm3 Eos # (Auto) 0.4 (0.0-0.4) K/mm3 Baso # (Auto) 0.0 (0.0-0.1) K/mm3 Seg Neutrophils % 43.3 (40.0-70.0) % Seg Neutrophils # 1.8 (1.8-7.7) K/mm3 PT 13.9 (12.2-14.9) Sec. INR 1.09 (0.87-1.13) APTT 28.9 (24.2-36.6) Sec. Sodium 134 L (137-145) mmol/L Potassium 3.6 (3.6-5.0) mmol/L Chloride 92.7 L (98-107) mmol/L Carbon Dioxide 32 H (22-30) mmol/L Anion Gap 13 mmol/L BUN 18 (9-20) mg/dL Creatinine 5.3 H (0.8-1.3) mg/dL Estimated GFR 13 ml/min BUN/Creatinine Ratio 3 % Glucose 101 H (75-100) mg/dL Lactic Acid (0.7-2.0) mmol/L Calcium 9.1 (8.4-10.2) mg/dL Total Bilirubin 0.50 (0.1-1.2) mg/dL AST 12 (5-40) units/L ALT 12 (7-56) units/L Alkaline Phosphatase 42 (35-129) units/L Ammonia (25-60) umol/L Troponin T 0.169 H* (0.00-0.029) ng/mL Total Protein 7.2 (6.3-8.2) g/dL Albumin 3.9 (3.9-5) g/dL Albumin/Globulin Ratio 1.2 % Triglycerides 56 (2-149) mg/dL Cholesterol 128 (50-199) mg/dL LDL Cholesterol Direct 64 (50-130) mg/dL HDL Cholesterol 54 (40-59) mg/dL Cholesterol/HDL Ratio 2.37 % Salicylates (2.8-20.0) mg/dL Acetaminophen (10.0-30.0) ug/mL Plasma/Serum Alcohol (0-0.07) % 07/12/20 07/12/20 07/12/20 Range/Units 21:14 21:14 21:14 WBC (4.5-11.0) K/mm3 RBC (3.65-5.03) M/mm3 Hgb (11.8-15.2) gm/dl Hct (35.5-45.6) % MCV (84-94) fl MCH (28-32) pg MCHC (32-34) % RDW (13.2-15.2) % Plt Count (140-440) K/mm3 Lymph % (Auto) (13.4-35.0) % [place] % (Auto) (0.0-7.3) % Eos % (Auto) (0.0-4.3) % Baso % (Auto) (0.0-1.8) % Lymph # (Auto) (1.2-5.4) K/mm3 [place] # (Auto) (0.0-0.8) K/mm3 Eos # (Auto) (0.0-0.4) K/mm3 Baso # (Auto) (0.0-0.1) K/mm3 Seg Neutrophils % (40.0-70.0) % Seg Neutrophils # (1.8-7.7) K/mm3 PT (12.2-14.9) Sec. INR (0.87-1.13) APTT (24.2-36.6) Sec. Sodium (137-145) mmol/L Potassium (3.6-5.0) mmol/L Chloride (98-107) mmol/L Carbon Dioxide (22-30) mmol/L Anion Gap mmol/L BUN (9-20) mg/dL Creatinine (0.8-1.3) mg/dL Estimated GFR ml/min BUN/Creatinine Ratio % Glucose (75-100) mg/dL Lactic Acid 0.90 (0.7-2.0) mmol/L Calcium (8.4-10.2) mg/dL Total Bilirubin (0.1-1.2) mg/dL AST (5-40) units/L ALT (7-56) units/L Alkaline Phosphatase (35-129) units/L Ammonia 14.0 L (25-60) umol/L Troponin T (0.00-0.029) ng/mL Total Protein (6.3-8.2) g/dL Albumin (3.9-5) g/dL Albumin/Globulin Ratio % Triglycerides (2-149) mg/dL Cholesterol (50-199) mg/dL LDL Cholesterol Direct (50-130) mg/dL HDL Cholesterol (40-59) mg/dL Cholesterol/HDL Ratio % Salicylates < 0.3 L (2.8-20.0) mg/dL Acetaminophen (10.0-30.0) ug/mL Plasma/Serum Alcohol (0-0.07) % 07/12/20 07/12/20 07/12/20 Range/Units 21:14 21:14 23:20 WBC (4.5-11.0) K/mm3 RBC (3.65-5.03) M/mm3 Hgb (11.8-15.2) gm/dl Hct (35.5-45.6) % MCV (84-94) fl MCH (28-32) pg MCHC (32-34) % RDW (13.2-15.2) % Plt Count (140-440) K/mm3 Lymph % (Auto) (13.4-35.0) % [place] % (Auto) (0.0-7.3) % Eos % (Auto) (0.0-4.3) % Baso % (Auto) (0.0-1.8) % Lymph # (Auto) (1.2-5.4) K/mm3 [place] # (Auto) (0.0-0.8) K/mm3 Eos # (Auto) (0.0-0.4) K/mm3 Baso # (Auto) (0.0-0.1) K/mm3 Seg Neutrophils % (40.0-70.0) % Seg Neutrophils # (1.8-7.7) K/mm3 PT (12.2-14.9) Sec. INR (0.87-1.13) APTT (24.2-36.6) Sec. Sodium (137-145) mmol/L Potassium (3.6-5.0) mmol/L Chloride (98-107) mmol/L Carbon Dioxide (22-30) mmol/L Anion Gap mmol/L BUN (9-20) mg/dL Creatinine (0.8-1.3) mg/dL Estimated GFR ml/min BUN/Creatinine Ratio % Glucose (75-100) mg/dL Lactic Acid (0.7-2.0) mmol/L Calcium (8.4-10.2) mg/dL Total Bilirubin (0.1-1.2) mg/dL AST (5-40) units/L ALT (7-56) units/L Alkaline Phosphatase (35-129) units/L Ammonia (25-60) umol/L Troponin T 0.185 H* (0.00-0.029) ng/mL Total Protein (6.3-8.2) g/dL Albumin (3.9-5) g/dL Albumin/Globulin Ratio % Triglycerides (2-149) mg/dL Cholesterol (50-199) mg/dL LDL Cholesterol Direct (50-130) mg/dL HDL Cholesterol (40-59) mg/dL Cholesterol/HDL Ratio % Salicylates (2.8-20.0) mg/dL Acetaminophen 5.0 L (10.0-30.0) ug/mL Plasma/Serum Alcohol < 0.01 (0-0.07) % - EKG Data -: EKG Interpreted by Me Rate: tachycardia - EKG Data Interpretation: other (afib) - Radiology Data Radiology results: report reviewed - Medical Decision Making Patient's troponin is slightly elevated. Troponins from prior visits are consistent with the troponin today. Elevated troponin level secondary to the patient's end-stage renal disease and decreased clearance of troponin secondary to renal disease. Multiple repeat evaluations of the patient is unable to oriented self to person, place, time and is severely confused and speaking to other people in the room that are present. Critical care attestation.: If time is entered above; I have spent that time in minutes in the direct care of this critically ill patient, excluding procedure time. ED Disposition Clinical Impression: Altered mental status, Elevated troponin Disposition: DC-09 OP ADMIT IP TO THIS HOSP Is pt being admited?: Yes Does the pt Need Aspirin: Yes Condition: Fair Referrals: PRIMARY CARE, [Primary Care Provider] - 3-5 Days
--- NOTE | 2020-07-12 21:30 | XRay Report ---
XR chest 1V ap INDICATION / CLINICAL INFORMATION: Altered Mental Status COMPARISON: 02/07/2020 FINDINGS: SUPPORT DEVICES: None. HEART / MEDIASTINUM: Cardiac silhouette is enlarged. LUNGS / PLEURA: Blunting the costophrenic sulci with pleural stripe thickening. Interlobular septal t hickening. Left greater than right basilar opacities most likely atelectasis. No pneumothorax. ADDITIONAL FINDINGS: No significant additional findings. IMPRESSION: 1. Cardiomegaly with interstitial edema and pleural effusions. Signer Name: Corky Espinoza MD Signed: 07/12/2020 9:26 PM Workstation Name: [id number]
[2020-07-12 21:31] LABS: Basophils % (Auto) 0.7 % (0.0-1.8); Eosinophils # (Auto) 0.4 K/mm3 (0.0-0.4); Eosinophils % (Auto) 9.6 % (0.0-4.3); Hematocrit 37.4 % (35.5-45.6); Hemoglobin 12.7 gm/dl (11.8-15.2); Lymphocytes # (Auto) 1.5 K/mm3 (1.2-5.4); Lymphocytes % (Auto) 37.5 % (13.4-35.0); Mean Corpuscular HGB Conc 34 % (32-34); Mean Corpuscular Volume 103 fl (84-94); Monocytes # (Auto) 0.4 K/mm3 (0.0-0.8); Monocytes % (Auto) 8.9 % (0.0-7.3); Platelet Count 114 K/mm3 (140-440); Red Blood Count 3.62 M/mm3 (3.65-5.03); Red Cell Distribution Width 17.2 % (13.2-15.2)
[2020-07-12 21:42] LABS: INR 1.09 (0.87-1.13); Partial Thromboplastin Time 28.9 Sec. (24.2-36.6)
[2020-07-12 21:50] LABS: Albumin 3.9 g/dL (3.9-5); Calcium 9.1 mg/dL (8.4-10.2)
--- NOTE | 2020-07-12 21:52 | Cat Scan Report ---
NONENHANCED CT SCAN OF THE HEAD: INDICATION / CLINICAL INFORMATION: 70 years Male; Altered Mental Status. TECHNIQUE: Routine CT head without contrast. All CT scans at this location are performed using CT dos e reduction for ALARA by means of automated exposure control. COMPARISON: CT scan of the head from 02/08/2020 FINDINGS: BRAIN / INTRACRANIAL CONTENTS: No acute hemorrhage, mass effect, midline shift, hydrocephalus, or acu te, large territorial infarct. Periventricular confluent white matter low attenuation due to chronic small vessel disease; chronic lacunae in the left thalamus and both corpus stratum; chronic changes i n the billy due to chronic small vessel disease in the colon mild cortical involution; moderate volume loss in the hippocampi CRANIOCERVICAL JUNCTION: No significant abnormality. ORBITS: No significant abnormality of visualized orbits. SINUSES / MASTOIDS: No significant abnormality of the visualized paranasal sinuses or mastoid air mike ls. 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
[2020-07-12 22:06] LABS: Chol/HDL Ratio 2.37 %
[2020-07-13] MEDS ORDERED: ASPIRIN 81 MG TAB CHEW PO ONE (00:50)
[2020-07-13] MEDS ORDERED: ACETAMINOPHEN 325 MG TAB PO PRN ×2 (02:19→02:20)
[2020-07-13] MEDS ORDERED: EPOETIN ALFA IV PRN (02:19)
[2020-07-13] MEDS ORDERED: POLYETHYLENE GLYCOL 3350 17 GM POWDER PO PRN (02:19)
[2020-07-13] MEDS ORDERED: ONDANSETRON 4 MG/2 ML INJ IV PRN (02:20)
[2020-07-13] MEDS ORDERED: hydrALAZINE 20 MG/1 ML INJ IV PRN ×2 (02:21→14:40)
--- NOTE | 2020-07-13 02:26 | History and Physical Report ---
History of Present Illness Date of examination: 07/13/20 Date of admission: 07/13/20 01:51 Chief complaint: Altered mental status History of present illness: 70 years old male with history of hypertension and decisional disease on hemodialysis Wednesday and Wednesday was brought to the emergency department via EMS after dialysis for altered mental status. The patient is very pleasant and conversational on initial evaluation but is confused to person, place, time. Initial CT scan shows no acute intracranial abnormality. Patient ammonia is 14.2 and troponin is 0.169 Past History Past Medical History: hypertension, renal failure Medications and Allergies Allergies Allergy/AdvReac Type Severity Reaction Status Date / Time No Known Allergies Allergy Unverified 11/20/18 16:31 Home Medications Medication Instructions Recorded Confirmed Last Taken Type Epoetin Blayne 10,000 Unit [Procrit] 10,000 unit IV NINO PRN #1 vial 12/02/18 02/05/20 11/20/19 10:00 Rx HYDROcodone/APAP 5-325 [[place] 1 each PO Q6H PRN tablet 11/22/19 02/05/20 Unknown Rx 5-325 mg TAB] polyethylene glycoL 3350 [Miralax 17 gm PO QDAY PRN #30 powd.pack 11/22/19 02/05/20 Unknown Rx 3350] Acetaminophen [Acetaminophen TAB] 650 mg PO Q4H PRN tablet 02/08/20 Unknown Rx Aspirin 325 mg PO QDAY #30 tablet 02/08/20 Unknown Rx AtorvaSTATin [Lipitor] 40 mg PO QHS #30 tablet 02/08/20 Unknown Rx Ferric Citrate (Nf) [Auryxia] 420 mg PO TID #90 tab 02/08/20 Unknown Rx Metoprolol [Lopressor TAB] 100 mg PO BID #120 tablet 02/08/20 Unknown Rx amLODIPine 5 mg PO QDAY #30 tablet 02/08/20 Unknown Rx hydrALAZINE [Apresoline TAB] 50 tab PO TID #180 tablet 02/08/20 Unknown Rx Review of Systems Constitutional: other (Altered mental status) Neurological: change in mentation Exam - Constitutional Vitals: Temp Pulse Resp BP Pulse Ox 98 F 128 H 24 168/104 97 07/12/20 19:29 07/13/20 01:30 07/13/20 01:30 07/12/20 21:00 07/13/20 01:30 General appearance: Present: no acute distress, well-nourished - EENT Eyes: Present: PERRL ENT: hearing intact, clear oral mucosa - Neck Neck: Present: supple, normal ROM - Respiratory Respiratory effort: normal Respiratory: bilateral: CTA - Cardiovascular Heart Sounds: Present: S1 & S2. Absent: rub, click - Extremities Extremities: pulses symmetrical, No edema Peripheral Pulses: within normal limits - Abdominal General gastrointestinal: Present: soft, non-tender, non-distended, normal bowel sounds Male genitourinary: Present: normal - Integumentary Integumentary: Present: clear, warm, dry - Musculoskeletal Musculoskeletal: gait normal, strength equal bilaterally - Psychiatric Psychiatric: appropriate mood/affect, intact judgment & insight - Neurologic Neurologic: CNII-XII intact, moves all extremities, other (Patient is awake but not oriented. Confused) HEART Score - HEART Score Age: > 65 Risk factors: 1-2 risk factors Troponin: Troponin T 0.185 ng/mL (0.00-0.029) H* 07/12/20 23:20 Troponin: 1-3x normal limit Results - Labs CBC & Chem 7: 07/12/20 21:14 07/12/20 21:14 Labs: Laboratory Last Values WBC 4.0 K/mm3 (4.5-11.0) L 07/12/20 21:14 RBC 3.62 M/mm3 (3.65-5.03) L 07/12/20 21:14 Hgb 12.7 gm/dl (11.8-15.2) 07/12/20 21:14 Hct 37.4 % (35.5-45.6) 07/12/20 21:14 MCV 103 fl (84-94) H 07/12/20 21:14 MCH 35 pg (28-32) H 07/12/20 21:14 MCHC 34 % (32-34) 07/12/20 21:14 RDW 17.2 % (13.2-15.2) H 07/12/20 21:14 Plt Count 114 K/mm3 (140-440) L 07/12/20 21:14 Lymph % (Auto) 37.5 % (13.4-35.0) H 07/12/20 21:14 [place] % (Auto) 8.9 % (0.0-7.3) H 07/12/20 21:14 Eos % (Auto) 9.6 % (0.0-4.3) H 07/12/20 21:14 Baso % (Auto) 0.7 % (0.0-1.8) 07/12/20 21:14 Lymph # (Auto) 1.5 K/mm3 (1.2-5.4) 07/12/20 21:14 [place] # (Auto) 0.4 K/mm3 (0.0-0.8) 07/12/20 21:14 Eos # (Auto) 0.4 K/mm3 (0.0-0.4) 07/12/20 21:14 Baso # (Auto) 0.0 K/mm3 (0.0-0.1) 07/12/20 21:14 Seg Neutrophils % 43.3 % (40.0-70.0) 07/12/20 21:14 Seg Neutrophils # 1.8 K/mm3 (1.8-7.7) 07/12/20 21:14 PT 13.9 Sec. (12.2-14.9) 07/12/20 21:14 INR 1.09 (0.87-1.13) 07/12/20 21:14 APTT 28.9 Sec. (24.2-36.6) 07/12/20 21:14 Sodium 134 mmol/L (137-145) L 07/12/20 21:14 Potassium 3.6 mmol/L (3.6-5.0) 07/12/20 21:14 Chloride 92.7 mmol/L (98-107) L 07/12/20 21:14 Carbon Dioxide 32 mmol/L (22-30) H 07/12/20 21:14 Anion Gap 13 mmol/L 07/12/20 21:14 BUN 18 mg/dL (9-20) 07/12/20 21:14 Creatinine 5.3 mg/dL (0.8-1.3) H 07/12/20 21:14 Estimated GFR 13 ml/min 07/12/20 21:14 BUN/Creatinine Ratio 3 % 07/12/20 21:14 Glucose 101 mg/dL (75-100) H 07/12/20 21:14 Lactic Acid 0.90 mmol/L (0.7-2.0) 07/12/20 21:14 Calcium 9.1 mg/dL (8.4-10.2) 07/12/20 21:14 Total Bilirubin 0.50 mg/dL (0.1-1.2) 07/12/20 21:14 AST 12 units/L (5-40) 07/12/20 21:14 ALT 12 units/L (7-56) 07/12/20 21:14 Alkaline Phosphatase 42 units/L (35-129) 07/12/20 21:14 Ammonia 14.0 umol/L (25-60) L 07/12/20 21:14 Troponin T 0.185 ng/mL (0.00-0.029) H* 07/12/20 23:20 Total Protein 7.2 g/dL (6.3-8.2) 07/12/20 21:14 Albumin 3.9 g/dL (3.9-5) 07/12/20 21:14 Albumin/Globulin Ratio 1.2 % 07/12/20 21:14 Triglycerides 56 mg/dL (2-149) 07/12/20 21:14 Cholesterol 128 mg/dL (50-199) 07/12/20 21:14 LDL Cholesterol Direct 64 mg/dL (50-130) 07/12/20 21:14 HDL Cholesterol 54 mg/dL (40-59) 07/12/20 21:14 Cholesterol/HDL Ratio 2.37 % 07/12/20 21:14 Salicylates < 0.3 mg/dL (2.8-20.0) L 07/12/20 21:14 Acetaminophen 5.0 ug/mL (10.0-30.0) L 07/12/20 21:14 Plasma/Serum Alcohol < 0.01 % (0-0.07) 07/12/20 21:14 - Imaging and Cardiology Chest x-ray: image reviewed CT Scan - head: image reviewed Assessment and Plan VTE prophylaxis?: Chemical Plan of care discussed with patient/family: Yes - Patient Problems (1) Acute metabolic encephalopathy Current Visit: Yes Status: Acute Plan to address problem: Admit the patient to the medical floor telemetry. Oxygen via nasal cannula 3 L/min. MRI of the brain without contrast. We will recheck CBC BMP in the morning. We will monitor the patient closely. If needed will consult neurology (2) NSTEMI (non-ST elevated myocardial infarction) Current Visit: No Status: Acute Plan to address problem: Aspirin 325 mg p.o. daily. Lipitor 40 mg p.o. daily. We will do the serial cardiac enzyme. Echocardiogram. Elevated troponin could be secondary to renal failure. If needed will consult cardiology (3) ESRD on dialysis Current Visit: No Status: Chronic Plan to address problem: Patient had just finished dialysis today. We will continue the hemodialysis. Will consult nephrology for evaluation (4) Hypertension Current Visit: No Status: Chronic Plan to address problem: Amlodipine 5 mg p.o. daily, hydralazine 10 mg IV every 6 hours as needed. We will monitor the blood pressure closely (5) DVT prophylaxis Current Visit: No Status: Acute Plan to address problem: Heparin 5000 units subcu every 8 hours. Protonix 40 mg p.o. daily. Patient is a full code
[2020-07-13] MEDS ORDERED: EPOETIN ALFA-EPBX 10,000 UNIT/1 ML VIAL IV PRN (02:29)
[2020-07-13] MEDS: HEPARIN 5,000 UNIT/1 ML VIAL SUB-Q SCH ×5 (05:01→22:15)
[2020-07-13] MEDS ORDERED: IRON PO SCH (08:00)
[2020-07-13] MEDS ORDERED: FERRIC CITRATE 210 MG PO SCH (08:00)
[2020-07-13] MEDS: hydrALAZINE 25 MG TAB PO SCH ×3 (09:06→22:15)
[2020-07-13] MEDS ORDERED: FAMOTIDINE 20 MG TAB PO SCH (10:00)
--- NOTE | 2020-07-13 10:32 | Event Note ---
Date: 07/13/20 Patient with significant past medical history of hypertension ,dyslipidemia , end-stage renal disease on hemodialysis was admitted early this morning with altered level of consciousness. Patient's work-up is in progress. Also has chronic elevated troponins, secondary to non-ST elevation NE type II due to ESRD Continue current management, will follow pending work-up. Plan of care reviewed with the patient and his nurse
[2020-07-13] MEDS: amLODIPine 5 MG TAB PO SCH (10:33)
[2020-07-13] MEDS: ASPIRIN 325 MG TAB PO SCH (10:33)
[2020-07-13] MEDS: METOPROLOL TARTRATE 100 MG TAB PO SCH ×2 (10:33→21:11)
[2020-07-13] MEDS: FAMOTIDINE 10 MG TAB PO SCH ×3 (10:33→22:15)
[2020-07-13] MEDS: IPRATROPIUM/ALBUTEROL SULFATE 3 ML AMPUL.NEB IH SCH ×2 (11:08→20:56)
--- NOTE | 2020-07-13 17:44 | Consultation ---
History of Present Illness - Reason for Consult Consult date: 07/13/20 acute renal failure Past History Past Medical History: hypertension, renal failure Medications and Allergies Allergies Allergy/AdvReac Type Severity Reaction Status Date / Time No Known Allergies Allergy Unverified 11/20/18 16:31 Home Medications Medication Instructions Recorded Confirmed Last Taken Type Epoetin Blayne 10,000 Unit [Procrit] 10,000 unit IV NINO PRN #1 vial 12/02/18 02/05/20 11/20/19 10:00 Rx HYDROcodone/APAP 5-325 [[place] 1 each PO Q6H PRN tablet 11/22/19 02/05/20 Unknown Rx 5-325 mg TAB] polyethylene glycoL 3350 [Miralax 17 gm PO QDAY PRN #30 powd.pack 11/22/19 02/05/20 Unknown Rx 3350] Acetaminophen [Acetaminophen TAB] 650 mg PO Q4H PRN tablet 02/08/20 Unknown Rx Aspirin 325 mg PO QDAY #30 tablet 02/08/20 Unknown Rx AtorvaSTATin [Lipitor] 40 mg PO QHS #30 tablet 02/08/20 Unknown Rx Ferric Citrate (Nf) [Auryxia] 420 mg PO TID #90 tab 02/08/20 Unknown Rx Metoprolol [Lopressor TAB] 100 mg PO BID #120 tablet 02/08/20 Unknown Rx amLODIPine 5 mg PO QDAY #30 tablet 02/08/20 Unknown Rx hydrALAZINE [Apresoline TAB] 50 tab PO TID #180 tablet 02/08/20 Unknown Rx Active Meds: Active Medications Acetaminophen (Acetaminophen 325 Mg Tab) 650 mg PO Q4H PRN PRN Reason: Pain MILD(1-3)/Fever >100.5/RUIZ Albuterol/Ipratropium (Ipratropium/Albuterol Sulfate 3 Ml Ampul.Neb) 1 ampul IH Q6HRT [facility] Last Admin: 07/13/20 11:08 Dose: 1 ampul Documented by: Amlodipine Besylate (Amlodipine 5 Mg Tab) 5 mg PO QDAY [facility] Last Admin: 07/13/20 10:33 Dose: 5 mg Documented by: Aspirin (Aspirin 325 Mg Tab) 325 mg PO QDAY [facility] Last Admin: 07/13/20 10:33 Dose: 325 mg Documented by: Atorvastatin Calcium (Atorvastatin 40 Mg Tab) 40 mg PO QHS [facility] Famotidine (Famotidine 10 Mg Tab) 10 mg PO BID [facility] Last Admin: 07/13/20 10:33 Dose: 10 mg Documented by: Heparin Sodium (Porcine) (Heparin 5,000 Unit/1 Ml Vial) 5,000 unit SUB-Q Q8HR [facility] Last Admin: 07/13/20 15:38 Dose: Not Given Documented by: Hydralazine HCl (Hydralazine 25 Mg Tab) 50 mg PO TID [facility] Last Admin: 07/13/20 15:21 Dose: 50 mg Documented by: Hydralazine HCl (Hydralazine 20 Mg/1 Ml Inj) 10 mg IV Q4H PRN PRN Reason: ELEVATED BP Metoprolol Tartrate (Metoprolol Tartrate 100 Mg Tab) 100 mg PO BID [facility] Last Admin: 07/13/20 10:33 Dose: 100 mg Documented by: Miscellaneous Medication (Ferric Citrate (Nf)) 420 mg PO TID [facility] Ondansetron HCl (Ondansetron 4 Mg/2 Ml Inj) 4 mg IV Q8H PRN PRN Reason: Nausea And Vomiting Polyethylene Glycol (Polyethylene Glycol 3350 17 Gm Powder) 17 gm PO QDAY PRN PRN Reason: Constipation Sodium Chloride (Sodium Chloride 0.9% 10 Ml Flush Syringe) 10 ml IV BID [facility] Last Admin: 07/13/20 10:33 Dose: 10 ml Documented by: Sodium Chloride (Sodium Chloride 0.9% 10 Ml Flush Syringe) 10 ml IV PRN PRN PRN Reason: LINE FLUSH Exam - Vital Signs Vital signs: Vital Signs Pulse Resp Pulse Ox 99 H 25 H 96 07/12/20 19:26 07/12/20 19:26 07/12/20 19:26 Results - Lab Results 07/12/20 21:14 07/12/20 21:14 Most recent lab results Calcium 9.1 mg/dL (8.4-10.2) 07/12/20 21:14
--- NOTE | 2020-07-13 17:50 | Event Note ---
Date: 07/13/20 Per reviewe of records, patient is followed by Dr. Maravilla/Dr. Brito. Will reassign consult.
[2020-07-14 05:43] LABS: Eosinophils # (Auto) 0.5 K/mm3 (0.0-0.4); Eosinophils % (Auto) 11.6 % (0.0-4.3); Hematocrit 38.7 % (35.5-45.6); Hemoglobin 12.8 gm/dl (11.8-15.2); Lymphocytes # (Auto) 1.6 K/mm3 (1.2-5.4); Lymphocytes % (Auto) 34.1 % (13.4-35.0); Mean Corpuscular HGB Conc 33 % (32-34); Mean Corpuscular Volume 104 fl (84-94); Monocytes # (Auto) 0.5 K/mm3 (0.0-0.8); Monocytes % (Auto) 11.8 % (0.0-7.3); Platelet Count 118 K/mm3 (140-440); Red Blood Count 3.72 M/mm3 (3.65-5.03); Red Cell Distribution Width 17.3 % (13.2-15.2)
[2020-07-14] MEDS: HEPARIN 5,000 UNIT/1 ML VIAL SUB-Q SCH ×3 (05:58→21:00)
[2020-07-14 06:00] LABS: Calcium 9.8 mg/dL (8.4-10.2)
[2020-07-14] MEDS: ASPIRIN 325 MG TAB PO SCH (09:43)
[2020-07-14] MEDS: METOPROLOL TARTRATE 100 MG TAB PO SCH (09:43)
[2020-07-14] MEDS: amLODIPine 5 MG TAB PO SCH (09:43)
[2020-07-14] MEDS: FAMOTIDINE 10 MG TAB PO SCH ×2 (09:43→21:00)
[2020-07-14] MEDS: hydrALAZINE 25 MG TAB PO SCH ×3 (09:43→19:40)
[2020-07-14] MEDS: IPRATROPIUM/ALBUTEROL SULFATE 3 ML AMPUL.NEB IH SCH ×5 (10:43→21:10)
--- NOTE | 2020-07-14 11:27 | Consultation ---
History of Present Illness - Reason for Consult Consult date: 07/14/20 end stage renal disease - History of Present Illness 70 y/o male with PMHx significant for ESRD in the setting of HTN, on MWF HD schedule as an outpatient at [facility], presented to the ED secondary to worsening mentation post dialysis treatment. Patient remains confused this am and is a poor historian. Per charts, it seems that he had been post HD treatment on Wednesday. A different nephrology group was inadvertently consulted, however has been changed at this time. Had CT head done without any acute abnormalities. Pending MRI of the brain. Had ECHO done last night per nursing staff. Pending report at this time. Nephrology consulted for chronic HD needs. Past History Past Medical History: hypertension, renal failure Medications and Allergies Allergies Allergy/AdvReac Type Severity Reaction Status Date / Time No Known Allergies Allergy Unverified 11/20/18 16:31 Home Medications Medication Instructions Recorded Confirmed Last Taken Type Epoetin Blayne 10,000 Unit [Procrit] 10,000 unit IV NINO PRN #1 vial 12/02/18 02/05/20 11/20/19 10:00 Rx HYDROcodone/APAP 5-325 [[place] 1 each PO Q6H PRN tablet 11/22/19 02/05/20 Unknown Rx 5-325 mg TAB] polyethylene glycoL 3350 [Miralax 17 gm PO QDAY PRN #30 powd.pack 11/22/19 02/05/20 Unknown Rx 3350] Acetaminophen [Acetaminophen TAB] 650 mg PO Q4H PRN tablet 02/08/20 Unknown Rx Aspirin 325 mg PO QDAY #30 tablet 02/08/20 Unknown Rx AtorvaSTATin [Lipitor] 40 mg PO QHS #30 tablet 02/08/20 Unknown Rx Ferric Citrate (Nf) [Auryxia] 420 mg PO TID #90 tab 02/08/20 Unknown Rx Metoprolol [Lopressor TAB] 100 mg PO BID #120 tablet 02/08/20 Unknown Rx amLODIPine 5 mg PO QDAY #30 tablet 02/08/20 Unknown Rx hydrALAZINE [Apresoline TAB] 50 tab PO TID #180 tablet 02/08/20 Unknown Rx Active Meds: Active Medications Acetaminophen (Acetaminophen 325 Mg Tab) 650 mg PO Q4H PRN PRN Reason: Pain MILD(1-3)/Fever >100.5/RUIZ Albuterol/Ipratropium (Ipratropium/Albuterol Sulfate 3 Ml Ampul.Neb) 1 ampul IH Q6HRT [facility] Last Admin: 07/14/20 10:43 Dose: 1 ampul Documented by: Amlodipine Besylate (Amlodipine 5 Mg Tab) 5 mg PO QDAY [facility] Last Admin: 07/14/20 09:43 Dose: 5 mg Documented by: Aspirin (Aspirin 325 Mg Tab) 325 mg PO QDAY [facility] Last Admin: 07/14/20 09:43 Dose: 325 mg Documented by: Atorvastatin Calcium (Atorvastatin 40 Mg Tab) 40 mg PO QHS [facility] Last Admin: 07/13/20 22:12 Dose: 40 mg Documented by: Famotidine (Famotidine 10 Mg Tab) 10 mg PO BID [facility] Last Admin: 07/14/20 09:43 Dose: 10 mg Documented by: Heparin Sodium (Porcine) (Heparin 5,000 Unit/1 Ml Vial) 5,000 unit SUB-Q Q8HR [facility] Last Admin: 07/14/20 05:58 Dose: Not Given Documented by: Hydralazine HCl (Hydralazine 25 Mg Tab) 50 mg PO TID [facility] Last Admin: 07/14/20 09:43 Dose: 50 mg Documented by: Hydralazine HCl (Hydralazine 20 Mg/1 Ml Inj) 10 mg IV Q4H PRN PRN Reason: ELEVATED BP Last Admin: 07/14/20 06:13 Dose: 10 mg Documented by: Metoprolol Tartrate (Metoprolol Tartrate 100 Mg Tab) 100 mg PO BID [facility] Last Admin: 07/14/20 09:43 Dose: Not Given Documented by: Miscellaneous Medication (Ferric Citrate (Nf)) 420 mg PO TID [facility] Ondansetron HCl (Ondansetron 4 Mg/2 Ml Inj) 4 mg IV Q8H PRN PRN Reason: Nausea And Vomiting Polyethylene Glycol (Polyethylene Glycol 3350 17 Gm Powder) 17 gm PO QDAY PRN PRN Reason: Constipation Sodium Chloride (Sodium Chloride 0.9% 10 Ml Flush Syringe) 10 ml IV BID [facility] Last Admin: 07/14/20 09:44 Dose: 10 ml Documented by: Sodium Chloride (Sodium Chloride 0.9% 10 Ml Flush Syringe) 10 ml IV PRN PRN PRN Reason: LINE FLUSH Review of Systems ROS unobtainable: due to mental status Exam - Vital Signs Vital signs: Vital Signs Pulse Resp Pulse Ox 99 H 25 H 96 07/12/20 19:26 07/12/20 19:26 07/12/20 19:26 - General Appearance General appearance: well-developed, appears stated age EENT: ATNC Neck: Present: neck supple Respiratory: Wheezes Heart: regular Gastrointestinal: Present: normal Integumentary: warm and dry Neurologic: other (flat affect, not answering questions or engaging in conversation. ) Psychiatric: cooperative Results - Lab Results 07/14/20 04:23 07/14/20 04:23 Most recent lab results Calcium 9.8 mg/dL (8.4-10.2) 07/14/20 04:23 Assessment and Plan - Patient Problems (1) Acute metabolic encephalopathy Current Visit: Yes Status: Acute Plan to address problem: Unclear etiology at this point. Don't believe its related to uremia as he seems to have been appropriately dialyzed as an outpatient. Pending MRI of the brain and possible neurological workup. Will monitor closely. (2) ESRD (end stage renal disease) Current Visit: No Status: Chronic Plan to address problem: Will place on MWF HD schedule. No acute indications for hemodialysis today. (3) Hypertensive chronic kidney disease with stage 5 chronic kidney disease or end stage renal disease Current Visit: No Status: Chronic Plan to address problem: Monitor with current regimen. Secondary to increased agitation, he had refused medications last night. More calm and pleasant this am despite being confused. Anticipate improvement in blood pressure readings with administration of oral regimen. (4) Other fluid overload Current Visit: No Status: Chronic Plan to address problem: Plan for optimization of fluid status with HD. He has been on room air however, and has been having adequate O2 saturation. Chest Xray was concerning for mild pulmonary edema. (5) Anemia in chronic kidney disease Current Visit: No Status: Chronic Plan to address problem: No acute indications for BRIDGET therapy as his H/H levels are at goal.
[2020-07-14] MEDS ORDERED: POTASSIUM CHLORIDE ER 10 MEQ TAB PO NR (12:15)
--- NOTE | 2020-07-14 12:21 | Progress Note ---
Assessment and Plan Assessment and plan: -- Acute metabolic encephalopathy Current Visit: Yes Status: Acute Plan to address problem: CT head without contrast no acute abnormality MRI another neuro work-up is in progress Neurochecks and supportive care Neurology consult if needed --NSTEMI (non-ST elevated myocardial infarction) type II Current Visit: No Status: Acute Plan to address problem: In the setting of end-stage renal disease Chronic elevation of troponins Echo; EF 40 to 45% -- ESRD on dialysis Current Visit: No Status: Chronic Plan to address problem: Hemodialysis per schedule --Hypertension Current Visit: No Status: Chronic Plan to address problem: Continue current antihypertensives As needed hydralazine --GERD; Current Visit: No Status: Chronic Plan to address problem: Protonix 40 mg p.o. daily. --Full CODE STATUS -- DVT prophylaxis Current Visit: No Status: Acute Plan to address problem: Heparin 5000 units subcu every 8 hours. Closely monitor the patient and adjust management as needed Plan of care reviewed with the patient and his nurse Follow pending neuro work-up 07/14; patient still lethargic and confused, sometimes Responds to simple questions appropriately Neuro work-up in progress Consult neurology when service available tomorrow History Interval history: I have seen and examined the patient at the bedside today Patient is slightly lethargic, confused, minimal communication Denies any chest pain or shortness of breath Vital signs reviewed Hospitalist Physical - Constitutional Vitals: Temp Pulse Resp BP Pulse Ox 97.9 F 89 18 160/100 100 07/14/20 03:30 07/14/20 08:00 07/14/20 08:00 07/14/20 06:13 07/14/20 03:30 General appearance: Present: no acute distress, well-nourished - EENT Eyes: Present: PERRL, EOM intact - Neck Neck: Present: supple, normal ROM - Respiratory Respiratory effort: normal Respiratory: bilateral: diminished, negative: rales, rhonchi, wheezing - Cardiovascular Rhythm: regular Heart Sounds: Present: S1 & S2 - Extremities Extremities: no ischemia, No edema - Abdominal General gastrointestinal: soft, non-tender, non-distended, normal bowel sounds - Integumentary Integumentary: Present: clear, warm - Psychiatric Psychiatric: appropriate mood/affect, other (Confused) - Neurologic Neurologic: CNII-XII intact, moves all extremities HEART Score - HEART Score Age: > 65 Risk factors: 1-2 risk factors Troponin: Troponin T 0.185 ng/mL (0.00-0.029) H* 07/12/20 23:20 Troponin: 1-3x normal limit Results - Labs CBC & Chem 7: 07/14/20 04:23 07/14/20 04:23 Labs: Laboratory Last Values WBC 4.6 K/mm3 (4.5-11.0) 07/14/20 04:23 RBC 3.72 M/mm3 (3.65-5.03) 07/14/20 04:23 Hgb 12.8 gm/dl (11.8-15.2) 07/14/20 04:23 Hct 38.7 % (35.5-45.6) 07/14/20 04:23 MCV 104 fl (84-94) H 07/14/20 04:23 MCH 35 pg (28-32) H 07/14/20 04:23 MCHC 33 % (32-34) 07/14/20 04:23 RDW 17.3 % (13.2-15.2) H 07/14/20 04:23 Plt Count 118 K/mm3 (140-440) L 07/14/20 04:23 Lymph % (Auto) 34.1 % (13.4-35.0) 07/14/20 04:23 [place] % (Auto) 11.8 % (0.0-7.3) H 07/14/20 04:23 Eos % (Auto) 11.6 % (0.0-4.3) H 07/14/20 04:23 Baso % (Auto) 1.0 % (0.0-1.8) 07/14/20 04:23 Lymph # (Auto) 1.6 K/mm3 (1.2-5.4) 07/14/20 04:23 [place] # (Auto) 0.5 K/mm3 (0.0-0.8) 07/14/20 04:23 Eos # (Auto) 0.5 K/mm3 (0.0-0.4) H 07/14/20 04:23 Baso # (Auto) 0.0 K/mm3 (0.0-0.1) 07/14/20 04:23 Seg Neutrophils % 41.5 % (40.0-70.0) 07/14/20 04:23 Seg Neutrophils # 1.9 K/mm3 (1.8-7.7) 07/14/20 04:23 PT 13.9 Sec. (12.2-14.9) 07/12/20 21:14 INR 1.09 (0.87-1.13) 07/12/20 21:14 APTT 28.9 Sec. (24.2-36.6) 07/12/20 21:14 Sodium 139 mmol/L (137-145) 07/14/20 04:23 Potassium 3.5 mmol/L (3.6-5.0) L 07/14/20 04:23 Chloride 96.5 mmol/L (98-107) L 07/14/20 04:23 Carbon Dioxide 29 mmol/L (22-30) 07/14/20 04:23 Anion Gap 17 mmol/L 07/14/20 04:23 BUN 29 mg/dL (9-20) H 07/14/20 04:23 Creatinine 7.2 mg/dL (0.8-1.3) H 07/14/20 04:23 Estimated GFR 9 ml/min 07/14/20 04:23 BUN/Creatinine Ratio 4 % 07/14/20 04:23 Glucose 69 mg/dL (75-100) L 07/14/20 04:23 Lactic Acid 0.90 mmol/L (0.7-2.0) 07/12/20 21:14 Calcium 9.8 mg/dL (8.4-10.2) 07/14/20 04:23 Total Bilirubin 0.50 mg/dL (0.1-1.2) 07/12/20 21:14 AST 12 units/L (5-40) 07/12/20 21:14 ALT 12 units/L (7-56) 07/12/20 21:14 Alkaline Phosphatase 42 units/L (35-129) 07/12/20 21:14 Ammonia 14.0 umol/L (25-60) L 07/12/20 21:14 Troponin T 0.185 ng/mL (0.00-0.029) H* 07/12/20 23:20 Total Protein 7.2 g/dL (6.3-8.2) 07/12/20 21:14 Albumin 3.9 g/dL (3.9-5) 07/12/20 21:14 Albumin/Globulin Ratio 1.2 % 07/12/20 21:14 Triglycerides 56 mg/dL (2-149) 07/12/20 21:14 Cholesterol 128 mg/dL (50-199) 07/12/20 21:14 LDL Cholesterol Direct 64 mg/dL (50-130) 07/12/20 21:14 HDL Cholesterol 54 mg/dL (40-59) 07/12/20 21:14 Cholesterol/HDL Ratio 2.37 % 07/12/20 21:14 Salicylates < 0.3 mg/dL (2.8-20.0) L 07/12/20 21:14 Acetaminophen 5.0 ug/mL (10.0-30.0) L 07/12/20 21:14 Plasma/Serum Alcohol < 0.01 % (0-0.07) 07/12/20 21:14 David/IV: Voiding Method Toilet Active Medications - Current Medications Current Medications: Generic Name Dose Route Start Last Admin Trade Name Freq PRN Reason Stop Dose Admin Acetaminophen 650 mg 07/13/20 02:20 Acetaminophen 325 Mg Tab PO Q4H PRN Pain MILD(1-3)/Fever >100.5/RUIZ Albuterol/Ipratropium 1 ampul 07/13/20 08:00 07/14/20 10:43 Ipratropium/Albuterol Sulfate 3 Ml Ampul.Neb IH 1 ampul Q6HRT [facility] Administration Amlodipine Besylate 5 mg 07/13/20 10:00 07/14/20 09:43 Amlodipine 5 Mg Tab PO 5 mg QDAY [facility] Administration Aspirin 325 mg 07/13/20 10:00 07/14/20 09:43 Aspirin 325 Mg Tab PO 325 mg QDAY [facility] Administration Atorvastatin Calcium 40 mg 07/13/20 22:00 07/13/20 22:12 Atorvastatin 40 Mg Tab PO 40 mg QHS [facility] Administration Famotidine 10 mg 07/13/20 10:00 07/14/20 09:43 Famotidine 10 Mg Tab PO 10 mg BID [facility] Administration Heparin Sodium (Porcine) 5,000 unit 07/13/20 06:00 07/14/20 05:58 Heparin 5,000 Unit/1 Ml Vial SUB-Q Not Given Q8HR [facility] Hydralazine HCl 50 mg 07/13/20 08:00 07/14/20 09:43 Hydralazine 25 Mg Tab PO 50 mg TID [facility] Administration Hydralazine HCl 10 mg 07/13/20 14:40 07/14/20 06:13 Hydralazine 20 Mg/1 Ml Inj IV 10 mg Q4H PRN Administration ELEVATED BP Metoprolol Tartrate 25 mg 07/14/20 22:00 Metoprolol Tartrate 25 Mg Tab PO BID [facility] Miscellaneous Medication 420 mg 07/13/20 08:00 Ferric Citrate (Nf) PO TID [facility] Ondansetron HCl 4 mg 07/13/20 02:20 Ondansetron 4 Mg/2 Ml Inj IV Q8H PRN Nausea And Vomiting Polyethylene Glycol 17 gm 07/13/20 02:19 Polyethylene Glycol 3350 17 Gm Powder PO QDAY PRN Constipation Sodium Chloride 10 ml 07/13/20 10:00 07/14/20 09:44 Sodium Chloride 0.9% 10 Ml Flush Syringe IV 10 ml BID [facility] Administration Sodium Chloride 10 ml 07/13/20 02:20 Sodium Chloride 0.9% 10 Ml Flush Syringe IV PRN PRN LINE FLUSH
[2020-07-14] MEDS: METOPROLOL TARTRATE 25 MG TAB PO SCH (21:00)
[2020-07-15] MEDS: IPRATROPIUM/ALBUTEROL SULFATE 3 ML AMPUL.NEB IH SCH ×5 (02:01→21:56)
[2020-07-15] MEDS: HEPARIN 5,000 UNIT/1 ML VIAL SUB-Q SCH ×3 (05:11→22:54)
[2020-07-15 06:47] LABS: Hepatitis B Surface Antigen Non-Reactive (Negative); Hepatitis C Virus Antibody Non-Reactive (NonReactive)
[2020-07-15] MEDS: amLODIPine 5 MG TAB PO SCH (10:19)
[2020-07-15] MEDS: METOPROLOL TARTRATE 25 MG TAB PO SCH ×2 (10:19→22:53)
[2020-07-15] MEDS: ASPIRIN 325 MG TAB PO SCH (10:19)
[2020-07-15] MEDS: FAMOTIDINE 10 MG TAB PO SCH ×2 (10:19→22:54)
[2020-07-15] MEDS: hydrALAZINE 25 MG TAB PO SCH ×3 (10:19→22:54)
--- NOTE | 2020-07-15 10:31 | Electrocardiograph Report ---
[facility] Test Date: 2020-07-13 Test Time: 01:24:25 Pat Name: WILLY RUTH Department: Room: [facility] Gender: M Data Management Manager: ALISON : 1950 Requested By: BREA ORO Order Number: [id number] Reading MD: Saul Watts Measurements Intervals [place] Rate: 104 P: VT: QRS: 46 QRSD: 117 T: 243 QT: 377 QTc: 496 Interpretive Statements Atrial flutter/afib LVH with secondary repolarization abnormality No previous ECG available for comparison Electronically Signed On 07-15-2020 10:31:11 EDT by Saul Watts
--- NOTE | 2020-07-15 10:31 | Progress Note ---
Assessment and Plan - Patient Problems (1) Altered mental state Current Visit: Yes Status: Acute Plan to address problem: Mental status is altered. This is of recent onset. CT head was nondiagnostic. Will get MRI of the brain. Consider neurology evaluation (2) ESRD (end stage renal disease) Current Visit: No Status: Chronic Plan to address problem: Hemodialysis on a Wednesday, Wednesday and Wednesday schedule. (3) Hypertensive chronic kidney disease with stage 5 chronic kidney disease or end stage renal disease Current Visit: No Status: Chronic Plan to address problem: Follow-up blood pressure on current medications (4) Other fluid overload Current Visit: No Status: Chronic Plan to address problem: Fluid removal on dialysis and then reevaluate Subjective Date of service: 07/15/20 Principal diagnosis: End-stage renal disease with altered mental status Interval history: Patient seen lying in bed. He has no new complaints. He knows he is in the hospital but not sure which one. He does not know the month, date or year. Objective - Exam Narrative Exam: Elderly -[place]ian male lying in bed in no acute distress HEENT: NCAT, Neck: Supple, no venous distention CVS: S1S2 RRR with no murmur, rub or gallop Chest: Clear to auscultation Abdomen: Protuberant, soft, nontender, no organomegaly, bowel sounds are present Extremities: No edema Neuro: Awake, alert no focal deficits, memory impairment - Vital Signs Vital signs: Vital Signs - 12hr 07/15/20 05:54 Temperature 98.6 F Pulse Rate 104 H Respiratory 20 Rate Blood Pressure 156/92 O2 Sat by Pulse 99 Oximetry - Lab 07/14/20 04:23 07/14/20 04:23 Most recent lab results Calcium 9.8 mg/dL (8.4-10.2) 07/14/20 04:23 Medications & Allergies - Medications Allergies/Adverse Reactions: Allergies No Known Allergies Allergy (Unverified 11/20/18 16:31) Home Medications: Home Medications Medication Instructions Recorded Confirmed Last Taken Type Epoetin Blayne 10,000 Unit [Procrit] 10,000 unit IV NINO PRN #1 vial 12/02/18 02/05/20 11/20/19 10:00 Rx HYDROcodone/APAP 5-325 [[place]cdon[place] 1 each PO Q6H PRN tablet 11/22/19 02/05/20 Unknown Rx 5-325 mg TAB] polyethylene glycoL 3350 [Miralax 17 gm PO QDAY PRN #30 powd.pack 11/22/19 02/05/20 Unknown Rx 3350] Acetaminophen [Acetaminophen TAB] 650 mg PO Q4H PRN tablet 02/08/20 Unknown Rx Aspirin 325 mg PO QDAY #30 tablet 02/08/20 Unknown Rx AtorvaSTATin [Lipitor] 40 mg PO QHS #30 tablet 02/08/20 Unknown Rx Ferric Citrate (Nf) [Auryxia] 420 mg PO TID #90 tab 02/08/20 Unknown Rx Metoprolol [Lopressor TAB] 100 mg PO BID #120 tablet 02/08/20 Unknown Rx amLODIPine 5 mg PO QDAY #30 tablet 02/08/20 Unknown Rx hydrALAZINE [Apresoline TAB] 50 tab PO TID #180 tablet 02/08/20 Unknown Rx Active Medications: Generic Name Dose Route Start Last Admin Trade Name Freq PRN Reason Stop Dose Admin Acetaminophen 650 mg 07/13/20 02:20 Acetaminophen 325 Mg Tab PO Q4H PRN Pain MILD(1-3)/Fever >100.5/RUIZ Albuterol/Ipratropium 1 ampul 07/15/20 08:00 07/15/20 10:15 Ipratropium/Albuterol Sulfate 3 Ml Ampul.Neb IH Not Given TIDRT [facility] Amlodipine Besylate 5 mg 07/13/20 10:00 07/15/20 10:19 Amlodipine 5 Mg Tab PO Not Given QDAY [facility] Aspirin 325 mg 07/13/20 10:00 07/15/20 10:19 Aspirin 325 Mg Tab PO Not Given QDAY [facility] Atorvastatin Calcium 40 mg 07/13/20 22:00 07/14/20 21:00 Atorvastatin 40 Mg Tab PO 40 mg QHS [facility] Administration Famotidine 10 mg 07/13/20 10:00 07/15/20 10:19 Famotidine 10 Mg Tab PO Not Given BID [facility] Heparin Sodium (Porcine) 5,000 unit 07/13/20 06:00 07/15/20 05:11 Heparin 5,000 Unit/1 Ml Vial SUB-Q 5,000 unit Q8HR [facility] Administration Hydralazine HCl 50 mg 07/13/20 08:00 07/15/20 10:19 Hydralazine 25 Mg Tab PO Not Given TID [facility] Hydralazine HCl 10 mg 07/13/20 14:40 07/14/20 06:13 Hydralazine 20 Mg/1 Ml Inj IV 10 mg Q4H PRN Administration ELEVATED BP Metoprolol Tartrate 25 mg 07/14/20 22:00 07/15/20 10:19 Metoprolol Tartrate 25 Mg Tab PO Not Given BID [facility] Miscellaneous Medication 420 mg 07/13/20 08:00 Ferric Citrate (Nf) PO TID [facility] Ondansetron HCl 4 mg 07/13/20 02:20 Ondansetron 4 Mg/2 Ml Inj IV Q8H PRN Nausea And Vomiting Polyethylene Glycol 17 gm 07/13/20 02:19 Polyethylene Glycol 3350 17 Gm Powder PO QDAY PRN Constipation Sodium Chloride 10 ml 07/13/20 10:00 07/15/20 10:19 Sodium Chloride 0.9% 10 Ml Flush Syringe IV Not Given BID [facility] Sodium Chloride 10 ml 07/13/20 02:20 Sodium Chloride 0.9% 10 Ml Flush Syringe IV PRN PRN LINE FLUSH
--- NOTE | 2020-07-15 13:39 | Progress Note ---
Assessment and Plan Assessment and plan: -- Acute metabolic encephalopathy/rule out CVA Current Visit: Yes Status: Acute Plan to address problem: CT head without contrast no acute abnormality MRI anD other neuro work-up is in progress Carotid Doppler no hemodynamically significant stenosis Neurochecks and supportive care Continue aspirin and statin Neurology consulted --NSTEMI (non-ST elevated myocardial infarction) type II Current Visit: No Status: Acute Plan to address problem: In the setting of end-stage renal disease Chronic elevation of troponins Echo; EF 40 to 45% -- ESRD on dialysis Current Visit: No Status: Chronic Plan to address problem: Hemodialysis per schedule --Hypertension Current Visit: No Status: Chronic Plan to address problem: Continue current antihypertensives As needed hydralazine --GERD; Current Visit: No Status: Chronic Plan to address problem: Protonix 40 mg p.o. daily. --Full CODE STATUS -- DVT prophylaxis Current Visit: No Status: Acute Plan to address problem: Heparin 5000 units subcu every 8 hours. Closely monitor the patient and adjust management as needed Plan of care reviewed with the patient and his nurse Follow pending neuro work-up 07/14; patient still lethargic and confused, sometimes Responds to simple questions appropriately Neuro work-up in progress Consult neurology when service available tomorrow 07/15; patient received hemodialysis today, confused Slow speech, neuro work-up is in progress Pending MRI, carotid Doppler no hemodynamically significant stenosis Follow neuro consult Disposition physical therapy occupational therapy Discharge when medically stable History Interval history: I have seen and Seen and examined the patient at the bedside Patient's chart and medications reviewed No new events reported by the nursing staff Patient remains confused intermittently Vital signs noted Received hemodialysis today Hospitalist Physical - Constitutional Vitals: Temp Pulse Resp BP Pulse Ox 98.2 F 104 H 18 133/74 99 07/15/20 10:20 07/15/20 11:30 07/15/20 10:20 07/15/20 11:30 07/15/20 05:54 General appearance: Present: no acute distress, well-nourished - EENT Eyes: Present: PERRL, EOM intact - Neck Neck: Present: supple, normal ROM - Respiratory Respiratory effort: normal Respiratory: bilateral: diminished, negative: rales, rhonchi, wheezing - Cardiovascular Rhythm: regular Heart Sounds: Present: S1 & S2 - Extremities Extremities: no ischemia, No edema - Abdominal General gastrointestinal: soft, non-tender, non-distended, normal bowel sounds - Integumentary Integumentary: Present: clear, warm - Psychiatric Psychiatric: appropriate mood/affect, cooperative - Neurologic Neurologic: CNII-XII intact, moves all extremities HEART Score - HEART Score Age: > 65 Risk factors: 1-2 risk factors Troponin: Troponin T 0.185 ng/mL (0.00-0.029) H* 07/12/20 23:20 Troponin: 1-3x normal limit Results - Labs CBC & Chem 7: 07/14/20 04:23 07/14/20 04:23 Labs: Laboratory Last Values WBC 4.6 K/mm3 (4.5-11.0) 07/14/20 04:23 RBC 3.72 M/mm3 (3.65-5.03) 07/14/20 04:23 Hgb 12.8 gm/dl (11.8-15.2) 07/14/20 04:23 Hct 38.7 % (35.5-45.6) 07/14/20 04:23 MCV 104 fl (84-94) H 07/14/20 04:23 MCH 35 pg (28-32) H 07/14/20 04:23 MCHC 33 % (32-34) 07/14/20 04:23 RDW 17.3 % (13.2-15.2) H 07/14/20 04:23 Plt Count 118 K/mm3 (140-440) L 07/14/20 04:23 Lymph % (Auto) 34.1 % (13.4-35.0) 07/14/20 04:23 [place] % (Auto) 11.8 % (0.0-7.3) H 07/14/20 04:23 Eos % (Auto) 11.6 % (0.0-4.3) H 07/14/20 04:23 Baso % (Auto) 1.0 % (0.0-1.8) 07/14/20 04:23 Lymph # (Auto) 1.6 K/mm3 (1.2-5.4) 07/14/20 04:23 [place] # (Auto) 0.5 K/mm3 (0.0-0.8) 07/14/20 04:23 Eos # (Auto) 0.5 K/mm3 (0.0-0.4) H 07/14/20 04:23 Baso # (Auto) 0.0 K/mm3 (0.0-0.1) 07/14/20 04:23 Seg Neutrophils % 41.5 % (40.0-70.0) 07/14/20 04:23 Seg Neutrophils # 1.9 K/mm3 (1.8-7.7) 07/14/20 04:23 PT 13.9 Sec. (12.2-14.9) 07/12/20 21:14 INR 1.09 (0.87-1.13) 07/12/20 21:14 APTT 28.9 Sec. (24.2-36.6) 07/12/20 21:14 Sodium 139 mmol/L (137-145) 07/14/20 04:23 Potassium 3.5 mmol/L (3.6-5.0) L 07/14/20 04:23 Chloride 96.5 mmol/L (98-107) L 07/14/20 04:23 Carbon Dioxide 29 mmol/L (22-30) 07/14/20 04:23 Anion Gap 17 mmol/L 07/14/20 04:23 BUN 29 mg/dL (9-20) H 07/14/20 04:23 Creatinine 7.2 mg/dL (0.8-1.3) H 07/14/20 04:23 Estimated GFR 9 ml/min 07/14/20 04:23 BUN/Creatinine Ratio 4 % 07/14/20 04:23 Glucose 69 mg/dL (75-100) L 07/14/20 04:23 POC Glucose 122 mg/dL (70-105) H 07/14/20 22:07 Lactic Acid 0.90 mmol/L (0.7-2.0) 07/12/20 21:14 Calcium 9.8 mg/dL (8.4-10.2) 07/14/20 04:23 Total Bilirubin 0.50 mg/dL (0.1-1.2) 07/12/20 21:14 AST 12 units/L (5-40) 07/12/20 21:14 ALT 12 units/L (7-56) 07/12/20 21:14 Alkaline Phosphatase 42 units/L (35-129) 07/12/20 21:14 Ammonia 14.0 umol/L (25-60) L 07/12/20 21:14 Troponin T 0.185 ng/mL (0.00-0.029) H* 07/12/20 23:20 Total Protein 7.2 g/dL (6.3-8.2) 07/12/20 21:14 Albumin 3.9 g/dL (3.9-5) 07/12/20 21:14 Albumin/Globulin Ratio 1.2 % 07/12/20 21:14 Triglycerides 56 mg/dL (2-149) 07/12/20 21:14 Cholesterol 128 mg/dL (50-199) 07/12/20 21:14 LDL Cholesterol Direct 64 mg/dL (50-130) 07/12/20 21:14 HDL Cholesterol 54 mg/dL (40-59) 07/12/20 21:14 Cholesterol/HDL Ratio 2.37 % 07/12/20 21:14 Salicylates < 0.3 mg/dL (2.8-20.0) L 07/12/20 21:14 Acetaminophen 5.0 ug/mL (10.0-30.0) L 07/12/20 21:14 Plasma/Serum Alcohol < 0.01 % (0-0.07) 07/12/20 21:14 Hepatitis A IgM Ab Non-reactive (NonReactive) 07/15/20 04:22 Hep Bs Antigen Non-reactive (Negative) 07/15/20 04:22 Hep B Core IgM Ab Non-reactive (NonReactive) 07/15/20 04:22 Hepatitis C Antibody Non-reactive (NonReactive) 07/15/20 04:22 David/IV: Voiding Method Toilet Active Medications - Current Medications Current Medications: Generic Name Dose Route Start Last Admin Trade Name Freq PRN Reason Stop Dose Admin Acetaminophen 650 mg 07/13/20 02:20 Acetaminophen 325 Mg Tab PO Q4H PRN Pain MILD(1-3)/Fever >100.5/RUIZ Albuterol/Ipratropium 1 ampul 07/15/20 08:00 07/15/20 10:15 Ipratropium/Albuterol Sulfate 3 Ml Ampul.Neb IH Not Given TIDRT [facility] Amlodipine Besylate 5 mg 07/13/20 10:00 07/15/20 10:19 Amlodipine 5 Mg Tab PO Not Given QDAY [facility] Aspirin 325 mg 07/13/20 10:00 07/15/20 10:19 Aspirin 325 Mg Tab PO Not Given QDAY [facility] Atorvastatin Calcium 40 mg 07/13/20 22:00 07/14/20 21:00 Atorvastatin 40 Mg Tab PO 40 mg QHS [facility] Administration Famotidine 10 mg 07/13/20 10:00 07/15/20 10:19 Famotidine 10 Mg Tab PO Not Given BID [facility] Heparin Sodium (Porcine) 5,000 unit 07/13/20 06:00 07/15/20 05:11 Heparin 5,000 Unit/1 Ml Vial SUB-Q 5,000 unit Q8HR [facility] Administration Hydralazine HCl 50 mg 07/13/20 08:00 07/15/20 10:19 Hydralazine 25 Mg Tab PO Not Given TID [facility] Hydralazine HCl 10 mg 07/13/20 14:40 07/14/20 06:13 Hydralazine 20 Mg/1 Ml Inj IV 10 mg Q4H PRN Administration ELEVATED BP Metoprolol Tartrate 25 mg 07/14/20 22:00 07/15/20 10:19 Metoprolol Tartrate 25 Mg Tab PO Not Given BID [facility] Miscellaneous Medication 420 mg 07/13/20 08:00 Ferric Citrate (Nf) PO TID [facility] Ondansetron HCl 4 mg 07/13/20 02:20 Ondansetron 4 Mg/2 Ml Inj IV Q8H PRN Nausea And Vomiting Polyethylene Glycol 17 gm 07/13/20 02:19 Polyethylene Glycol 3350 17 Gm Powder PO QDAY PRN Constipation Sodium Chloride 10 ml 07/13/20 10:00 07/15/20 10:19 Sodium Chloride 0.9% 10 Ml Flush Syringe IV Not Given BID [facility] Sodium Chloride 10 ml 07/13/20 02:20 Sodium Chloride 0.9% 10 Ml Flush Syringe IV PRN PRN LINE FLUSH
--- NOTE | 2020-07-15 14:21 | Consultation ---
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 The patient is very pleasant and conversational on initial evaluation but is confused to person, place, time. Initial CT scan shows no acute intracranial abnormality. Patient ammonia is 14.2 and troponin is 0.169 Past History Past Medical History: hypertension, renal failure Past History Past Medical History: hypertension, renal failure Medications and Allergies Allergies Allergy/AdvReac Type Severity Reaction Status Date / Time No Known Allergies Allergy Unverified 11/20/18 16:31 Home Medications Medication Instructions Recorded Confirmed Last Taken Type Epoetin Blayne 10,000 Unit [Procrit] 10,000 unit IV NINO PRN #1 vial 12/02/18 02/05/20 11/20/19 10:00 Rx HYDROcodone/APAP 5-325 [[place] 1 each PO Q6H PRN tablet 11/22/19 02/05/20 Unknown Rx 5-325 mg TAB] polyethylene glycoL 3350 [Miralax 17 gm PO QDAY PRN #30 powd.pack 11/22/19 02/05/20 Unknown Rx 3350] Acetaminophen [Acetaminophen TAB] 650 mg PO Q4H PRN tablet 02/08/20 Unknown Rx Aspirin 325 mg PO QDAY #30 tablet 02/08/20 Unknown Rx AtorvaSTATin [Lipitor] 40 mg PO QHS #30 tablet 02/08/20 Unknown Rx Ferric Citrate (Nf) [Auryxia] 420 mg PO TID #90 tab 02/08/20 Unknown Rx Metoprolol [Lopressor TAB] 100 mg PO BID #120 tablet 02/08/20 Unknown Rx amLODIPine 5 mg PO QDAY #30 tablet 02/08/20 Unknown Rx hydrALAZINE [Apresoline TAB] 50 tab PO TID #180 tablet 02/08/20 Unknown Rx Active Meds: Active Medications Acetaminophen (Acetaminophen 325 Mg Tab) 650 mg PO Q4H PRN PRN Reason: Pain MILD(1-3)/Fever >100.5/RUIZ Albuterol/Ipratropium (Ipratropium/Albuterol Sulfate 3 Ml Ampul.Neb) 1 ampul IH TIDRT BECKIE Last Admin: 07/15/20 13:51 Dose: Not Given Documented by: Amlodipine Besylate (Amlodipine 5 Mg Tab) 5 mg PO QDAY [facility] Last Admin: 07/15/20 10:19 Dose: Not Given Documented by: Aspirin (Aspirin 325 Mg Tab) 325 mg PO QDAY [facility] Last Admin: 07/15/20 10:19 Dose: Not Given Documented by: Atorvastatin Calcium (Atorvastatin 40 Mg Tab) 40 mg PO QHS [facility] Last Admin: 07/14/20 21:00 Dose: 40 mg Documented by: Famotidine (Famotidine 10 Mg Tab) 10 mg PO BID [facility] Last Admin: 07/15/20 10:19 Dose: Not Given Documented by: Heparin Sodium (Porcine) (Heparin 5,000 Unit/1 Ml Vial) 5,000 unit SUB-Q Q8HR [facility] Last Admin: 07/15/20 05:11 Dose: 5,000 unit Documented by: Hydralazine HCl (Hydralazine 25 Mg Tab) 50 mg PO TID [facility] Last Admin: 07/15/20 10:19 Dose: Not Given Documented by: Hydralazine HCl (Hydralazine 20 Mg/1 Ml Inj) 10 mg IV Q4H PRN PRN Reason: ELEVATED BP Last Admin: 07/14/20 06:13 Dose: 10 mg Documented by: Metoprolol Tartrate (Metoprolol Tartrate 25 Mg Tab) 25 mg PO BID [facility] Last Admin: 07/15/20 10:19 Dose: Not Given Documented by: Miscellaneous Medication (Ferric Citrate (Nf)) 420 mg PO TID [facility] Ondansetron HCl (Ondansetron 4 Mg/2 Ml Inj) 4 mg IV Q8H PRN PRN Reason: Nausea And Vomiting Polyethylene Glycol (Polyethylene Glycol 3350 17 Gm Powder) 17 gm PO QDAY PRN PRN Reason: Constipation Sodium Chloride (Sodium Chloride 0.9% 10 Ml Flush Syringe) 10 ml IV BID [facility] Last Admin: 07/15/20 10:19 Dose: Not Given Documented by: Sodium Chloride (Sodium Chloride 0.9% 10 Ml Flush Syringe) 10 ml IV PRN PRN PRN Reason: LINE FLUSH Review of Systems ROS unobtainable: due to mental status Physical Examination - Vital Signs Vital Signs: Vital Signs Pulse Resp Pulse Ox 99 H 25 H 96 07/12/20 19:26 07/12/20 19:26 07/12/20 19:26 - Constitutional General appearance: comfortable - EENT EENT: Present: PERRL, mucous membranes moist, hearing intact - Respiratory Respiratory: Present: chest non-tender, lungs clear, rhonchi - Cardiovascular Cardiovascular: Present: normal S1, normal S2 Extremities: Present: no peripheral edema bilatateraly - Gastrointestinal Gastrointestinal: Present: soft, non-tender - Integumentary Integumentary: Present: normal - Neurologic Cranial nerve examination: PERRL, EOMI Speech examination: intact Sensorimotor examination: intact Detailed motor examination: grossly full strength in Reflexes: 1+: ankle, bicep, knee, tricep - Additional Exam Additional Exam: he is alert pleasant . disorioented to place and date , knows his name and birthdate , knows his original country from [place] but does not knows why he is here in hospital he follows simple command Results - Laboratory Findings CBC and BMP: 07/14/20 04:23 07/14/20 04:23 Abnormal Lab Findings: Abnormal Labs 07/12/20 07/12/20 07/12/20 21:14 21:14 21:14 WBC 4.0 L RBC 3.62 L MCV 103 H MCH 35 H RDW 17.2 H Plt Count 114 L Lymph % (Auto) 37.5 H [place] % (Auto) 8.9 H Eos % (Auto) 9.6 H Eos # (Auto) Sodium 134 L Potassium Chloride 92.7 L Carbon Dioxide 32 H BUN Creatinine 5.3 H Glucose 101 H POC Glucose Ammonia 14.0 L Troponin T 0.169 H* Salicylates Acetaminophen 07/12/20 07/12/20 07/12/20 21:14 21:14 23:20 WBC RBC MCV MCH RDW Plt Count Lymph % (Auto) [place] % (Auto) Eos % (Auto) Eos # (Auto) Sodium Potassium Chloride Carbon Dioxide BUN Creatinine Glucose POC Glucose Ammonia Troponin T 0.185 H* Salicylates < 0.3 L Acetaminophen 5.0 L 07/14/20 07/14/20 07/14/20 04:23 04:23 22:07 WBC RBC MCV 104 H MCH 35 H RDW 17.3 H Plt Count 118 L Lymph % (Auto) [place] % (Auto) 11.8 H Eos % (Auto) 11.6 H Eos # (Auto) 0.5 H Sodium Potassium 3.5 L Chloride 96.5 L Carbon Dioxide BUN 29 H Creatinine 7.2 H Glucose 69 L POC Glucose 122 H Ammonia Troponin T Salicylates Acetaminophen Assessment and Plan Assessment and Plan - Patient Problems (1) Acute metabolic encephalopathy - pt. is with possible underlying dementia base line is unknown no family is around -he is some what confused / and or with strange affect -Mri brain is pending -Ct brain is unremarkable -EEG ordered (2) NSTEMI (non-ST elevated myocardial infarction) -Aspirin 325 mg p.o. daily - Lipitor 40 mg p.o. daily. - Echocardiogram. - Elevated troponin could be secondary to renal failure. (3) ESRD on dialysis -Patient is on dialysis today. (4) Hypertension -Amlodipine 5 mg p.o. daily, - hydralazine 10 mg IV every 6 hours as needed. (5) DVT prophylaxis -Heparin 5000 units subcu every 8 hours. - Protonix 40 mg p.o. daily. --Patient is a full code will follow
--- NOTE | 2020-07-15 16:49 | Vascular Lab Report ---
DUPLEX DOPPLER ULTRASOUND CAROTID, BILATERAL INDICATION / CLINICAL INFORMATION: CVA work-up. COMPARISON: None available. FINDINGS: RIGHT CAROTID: Moderate plaque is seen in the carotid bulb - PLAQUE ESTIMATE (%): < 50% - CCA velocity: 54 cm/sec. - ICA peak systolic velocity: 59 cm/sec. - ICA/CCA PSV Ratio: 1.1 Right Vertebral Artery: Antegrade flow. LEFT CAROTID: [id number] plaque in the CCA - PLAQUE ESTIMATE: < 50% - CCA velocity: 59 cm/sec. - ICA peak systolic velocity: 58 cm/sec. - ICA/CCA PSV Ratio: 1. Left Vertebral Artery: Antegrade flow. IMPRESSION: 1. Right Internal Carotid Artery: Less than 50% diameter stenosis. 2. Left Internal Carotid Artery: Less than 50% diameter stenosis. Velocity criteria are extrapolated from diameter data as defined by the Society of Radiologists in [facility] Consensus Conference, Radiology 2003; 229;340-346. NO STENOSIS (NORMAL) * Plaque = none; ICA PSV < 125 cm/sec; ICA/CCA PSV Ratio < 2.0 <50% STENOSIS * Plaque < 50%; ICA PSV < 125 cm/sec; ICA/CCA PSV Ratio < 2.0 50-69% STENOSIS * Plaque > 50%; ICA PSV = 125-230 cm/sec; ICA/CCA PSV Ratio = 2.0-4.0 >70% BUT <100% STENOSIS * Plaque > 50%; ICA PSV > 230 cm/sec; ICA/CCA PSV Ratio > 4.0 NEAR OCCLUSION * Plaque = visible lumen; ICA PSV = high/low/none; ICA/CCA PSV Ratio = variable TOTAL OCCLUSION * Plaque = no lumen; ICA PSV = none; ICA/CCA PSV Ratio = N/A Signer Name: Randall Mills MD Signed: 07/15/2020 4:45 PM Workstation Name: [id number]
[2020-07-16] MEDS: HEPARIN 5,000 UNIT/1 ML VIAL SUB-Q SCH ×3 (06:04→23:06)
[2020-07-16] MEDS: IPRATROPIUM/ALBUTEROL SULFATE 3 ML AMPUL.NEB IH SCH ×3 (09:29→22:27)
[2020-07-16] MEDS: hydrALAZINE 25 MG TAB PO SCH ×3 (10:03→23:10)
[2020-07-16] MEDS: amLODIPine 5 MG TAB PO SCH (10:09)
[2020-07-16] MEDS: METOPROLOL TARTRATE 25 MG TAB PO SCH ×2 (10:09→23:05)
[2020-07-16] MEDS: FAMOTIDINE 10 MG TAB PO SCH ×2 (10:09→23:05)
[2020-07-16] MEDS: ASPIRIN 325 MG TAB PO SCH (10:09)
--- NOTE | 2020-07-16 11:25 | Progress Note ---
Assessment and Plan Assessment and Plan - Patient Problems (1) Acute metabolic encephalopathy - pt. is with possible underlying dementia base line is unknown no family is around pt. is getting slightly agitated , no sign of encephalopathy he is alert interactive -he is some what confused / and or with strange affect -Mri brain is pending -Ct brain is unremarkable -EEG diffuse slowing -- full report to follow -Carotid US is <50% bilateral (2) NSTEMI (non-ST elevated myocardial infarction) -Aspirin 325 mg p.o. daily - Lipitor 40 mg p.o. daily. - Echocardiogram. - Elevated troponin could be secondary to renal failure. (3) ESRD on dialysis -Patient is on dialysis today. (4) Hypertension -Amlodipine 5 mg p.o. daily, - hydralazine 10 mg IV every 6 hours as needed. (5) DVT prophylaxis -Heparin 5000 units subcu every 8 hours. - Protonix 40 mg p.o. daily. --Patient is a full code will follow as needed Subjective Date of service: 07/16/20 Principal diagnosis: End-stage renal disease with altered mental status Interval history: pt. slightly more awake responsive still with memory difficulty ,and is asking why I am here in the hospital Objective - Vital Sign Vital Signs - 12hr 07/16/20 07/16/20 07/16/20 05:36 09:30 09:33 Temperature 98.2 F Pulse Rate 105 H Pulse Rate [ 100 H Bilateral Throughout] Respiratory 18 Rate Respiratory 16 Rate [Bilateral Throughout] Blood Pressure 157/98 Blood Pressure [Right] O2 Sat by Pulse 96 97 Oximetry 07/16/20 07/16/20 10:09 10:11 Temperature 99.1 F Pulse Rate 130 H 130 H Pulse Rate [ Bilateral Throughout] Respiratory 20 Rate Respiratory Rate [Bilateral Throughout] Blood Pressure 141/92 Blood Pressure 141/92 [Right] O2 Sat by Pulse 96 Oximetry - General Apperance Constitutional: comfortable, other (getting slightly agitated ) - EENT EENT: PERRL, mucous membranes moist - Respiratory Respiratory: lungs clear, normal breath sounds, no respiratory distress - Cardiovascular Cardiovascular: regular rate, normal S1, normal S2 Extremities: no peripheral edema bilat, no clubbing, cyanosis - Gastrointestinal Gastrointestinal: normoactive bowel sounds - Integumentary Integumentary: normal - Neurologic Cranial nerve examination: PERRL, EOMI, V1/V2/V3 grossly intact, face symmetric, intact Speech examination: intact Detailed motor examination: grossly full strength in, other Detailed sensory examination: intact Reflex and gait examination: other (gait is not done) Reflexes: 1+: ankle, bicep, knee, tricep - Laboratory Findings CBC and BMP: 07/14/20 04:23 07/14/20 04:23 Abnormal Lab Findings: Abnormal Labs 07/12/20 07/12/20 07/12/20 21:14 21:14 21:14 WBC 4.0 L RBC 3.62 L MCV 103 H MCH 35 H RDW 17.2 H Plt Count 114 L Lymph % (Auto) 37.5 H [place] % (Auto) 8.9 H Eos % (Auto) 9.6 H Eos # (Auto) Sodium 134 L Potassium Chloride 92.7 L Carbon Dioxide 32 H BUN Creatinine 5.3 H Glucose 101 H POC Glucose Ammonia 14.0 L Troponin T 0.169 H* Salicylates Acetaminophen 07/12/20 07/12/20 07/12/20 21:14 21:14 23:20 WBC RBC MCV MCH RDW Plt Count Lymph % (Auto) [place] % (Auto) Eos % (Auto) Eos # (Auto) Sodium Potassium Chloride Carbon Dioxide BUN Creatinine Glucose POC Glucose Ammonia Troponin T 0.185 H* Salicylates < 0.3 L Acetaminophen 5.0 L 07/14/20 07/14/20 07/14/20 04:23 04:23 22:07 WBC RBC MCV 104 H MCH 35 H RDW 17.3 H Plt Count 118 L Lymph % (Auto) [place] % (Auto) 11.8 H Eos % (Auto) 11.6 H Eos # (Auto) 0.5 H Sodium Potassium 3.5 L Chloride 96.5 L Carbon Dioxide BUN 29 H Creatinine 7.2 H Glucose 69 L POC Glucose 122 H Ammonia Troponin T Salicylates Acetaminophen
[2020-07-16 11:46] LABS: Calcium 9.4 mg/dL (8.4-10.2)
--- NOTE | 2020-07-16 16:10 | Progress Note ---
Assessment and Plan -- Acute metabolic encephalopathy/rule out CVA CT head without contrast no acute abnormality MRI anD other neuro work-up is in progress Carotid Doppler no hemodynamically significant stenosis Neurochecks and supportive care Continue aspirin and statin Neurology consulted --NSTEMI (non-ST elevated myocardial infarction) type II In the setting of end-stage renal disease Chronic elevation of troponins Echo; EF 40 to 45%, continue aspirin And statin -- ESRD on dialysis Hemodialysis per schedule --Hypertension Continue current antihypertensives As needed hydralazine --GERD; Protonix 40 mg p.o. daily. --Full CODE STATUS -- DVT prophylaxis: Heparin 5000 units subcu every 8 hours. Closely monitor the patient and adjust management as needed Plan of care reviewed with the patient and his nurse Follow pending neuro work-up Daily clinical course: 07/14; patient still lethargic and confused, sometimes Responds to simple questions appropriately Neuro work-up in progress Consult neurology when service available tomorrow 07/15; patient received hemodialysis today, confused Slow speech, neuro work-up is in progress Pending MRI, carotid Doppler no hemodynamically significant stenosis Follow neuro consult 07/16: Pending brain MRI, patient tolerating diet. Pending PT recommendation. Neurology following, remains confused Disposition physical therapy occupational therapy Discharge when medically stable Hospitalist Physical General appearance: Present: no acute distress, well-nourished - EENT Eyes: Present: PERRL, EOM intact - Neck Neck: Present: supple, normal ROM - Respiratory Respiratory effort: normal Respiratory: bilateral: diminished, negative: rales, rhonchi, wheezing - Cardiovascular Rhythm: regular Heart Sounds: Present: S1 & S2 - Extremities Extremities: no ischemia, No edema - Abdominal General gastrointestinal: soft, non-tender, non-distended, normal bowel sounds - Integumentary Integumentary: Present: clear, warm - Psychiatric Psychiatric: appropriate mood/affect, cooperative - Neurologic Neurologic: CNII-XII intact, moves all extremities Subjective Date of service: 07/16/20 Principal diagnosis: End-stage renal disease with altered mental status Interval history: Patient seen and examined. Medical records and medication list reviewed. No acute event overnight noted by the RN. Patient denies any chest pain or difficulty breathing. Patient is tolerating diet. Patient remains pleasantly confused, vitals noted and discussed plan of care with nursing staff Pending MRI Objective - Constitutional Vitals: Vital Signs - 12hr 07/16/20 07/16/20 07/16/20 05:36 09:30 09:33 Temperature 98.2 F Pulse Rate 105 H Pulse Rate [ 100 H Bilateral Throughout] Respiratory 18 Rate Respiratory 16 Rate [Bilateral Throughout] Blood Pressure 157/98 Blood Pressure [Right] O2 Sat by Pulse 96 97 Oximetry 07/16/20 07/16/20 07/16/20 10:09 10:11 14:00 Temperature 99.1 F Pulse Rate 130 H 130 H Pulse Rate [ 94 H Bilateral Throughout] Respiratory 20 Rate Respiratory 20 Rate [Bilateral Throughout] Blood Pressure 141/92 Blood Pressure 141/92 [Right] O2 Sat by Pulse 96 Oximetry 07/16/20 15:06 Temperature Pulse Rate Pulse Rate [ Bilateral Throughout] Respiratory Rate Respiratory Rate [Bilateral Throughout] Blood Pressure 127/88 Blood Pressure [Right] O2 Sat by Pulse Oximetry - Labs CBC & Chem 7: 07/14/20 04:23 07/16/20 10:08 Labs: Abnormal lab results 07/16/20 Range/Units 10:08 Chloride 97.3 L (98-107) mmol/L BUN 25 H (9-20) mg/dL Creatinine 7.8 H (0.8-1.3) mg/dL Glucose 113 H (75-100) mg/dL HEART Score - HEART Score Age: > 65 Risk factors: 1-2 risk factors Troponin: Troponin T 0.185 ng/mL (0.00-0.029) H* 07/12/20 23:20 Troponin: 1-3x normal limit
--- NOTE | 2020-07-16 20:09 | Progress Note ---
Assessment and Plan - Patient Problems (1) Altered mental state Current Visit: Yes Status: Acute Plan to address problem: Mental status is altered. This is of recent onset. CT head was nondiagnostic. MRI of the brain is pending. Neurology input appreciated (2) ESRD (end stage renal disease) Current Visit: No Status: Chronic Plan to address problem: Hemodialysis on a Wednesday, Wednesday and Wednesday schedule. (3) Hypertensive chronic kidney disease with stage 5 chronic kidney disease or end stage renal disease Current Visit: No Status: Chronic Plan to address problem: Follow-up blood pressure on current medications (4) Other fluid overload Current Visit: No Status: Chronic Plan to address problem: Fluid removal on dialysis and then reevaluate Subjective Date of service: 07/16/20 Principal diagnosis: End-stage renal disease with altered mental status Interval history: Patient seen lying in bed. He has no new complaints. He knows he is in the hospital but still not sure which one. He still does not know the month, date or year. Objective - Exam Narrative Exam: Elderly -[place] male lying in bed in no acute distress HEENT: NCAT, Neck: Supple, no venous distention CVS: S1S2 RRR with no murmur, rub or gallop Chest: Clear to auscultation Abdomen: Protuberant, soft, nontender, no organomegaly, bowel sounds are present Extremities: No edema Neuro: Awake, alert no focal deficits, memory impairment - Vital Signs Vital signs: Vital Signs - 12hr 07/16/20 07/16/20 07/16/20 09:30 09:33 10:09 Temperature Pulse Rate 130 H Pulse Rate [ 100 H Bilateral Throughout] Respiratory Rate Respiratory 16 Rate [Bilateral Throughout] Blood Pressure 141/92 Blood Pressure [Right] O2 Sat by Pulse 97 Oximetry 07/16/20 07/16/20 07/16/20 10:11 14:00 15:06 Temperature 99.1 F Pulse Rate 130 H Pulse Rate [ 94 H Bilateral Throughout] Respiratory 20 Rate Respiratory 20 Rate [Bilateral Throughout] Blood Pressure 127/88 Blood Pressure 141/92 [Right] O2 Sat by Pulse 96 Oximetry - Lab 07/14/20 04:23 07/16/20 10:08 Most recent lab results Calcium 9.4 mg/dL (8.4-10.2) 07/16/20 10:08 Medications & Allergies - Medications Allergies/Adverse Reactions: Allergies No Known Allergies Allergy (Unverified 11/20/18 16:31) Home Medications: Home Medications Medication Instructions Recorded Confirmed Last Taken Type Epoetin Blayne 10,000 Unit [Procrit] 10,000 unit IV NINO PRN #1 vial 12/02/18 02/05/20 11/20/19 10:00 Rx HYDROcodone/APAP 5-325 [[place] 1 each PO Q6H PRN tablet 11/22/19 02/05/20 Unknown Rx 5-325 mg TAB] polyethylene glycoL 3350 [Miralax 17 gm PO QDAY PRN #30 powd.pack 11/22/19 02/05/20 Unknown Rx 3350] Acetaminophen [Acetaminophen TAB] 650 mg PO Q4H PRN tablet 02/08/20 Unknown Rx Aspirin 325 mg PO QDAY #30 tablet 02/08/20 Unknown Rx AtorvaSTATin [Lipitor] 40 mg PO QHS #30 tablet 02/08/20 Unknown Rx Ferric Citrate (Nf) [Auryxia] 420 mg PO TID #90 tab 02/08/20 Unknown Rx Metoprolol [Lopressor TAB] 100 mg PO BID #120 tablet 02/08/20 Unknown Rx amLODIPine 5 mg PO QDAY #30 tablet 02/08/20 Unknown Rx hydrALAZINE [Apresoline TAB] 50 tab PO TID #180 tablet 02/08/20 Unknown Rx Active Medications: Generic Name Dose Route Start Last Admin Trade Name Freq PRN Reason Stop Dose Admin Acetaminophen 650 mg 07/13/20 02:20 Acetaminophen 325 Mg Tab PO Q4H PRN Pain MILD(1-3)/Fever >100.5/RUIZ Albuterol/Ipratropium 1 ampul 07/15/20 08:00 07/16/20 15:18 Ipratropium/Albuterol Sulfate 3 Ml Ampul.Neb IH 1 ampul TIDRT BECKIE Administration Amlodipine Besylate 5 mg 07/13/20 10:00 07/16/20 10:09 Amlodipine 5 Mg Tab PO 5 mg QDAY BECKIE Administration Aspirin 325 mg 07/13/20 10:00 07/16/20 10:09 Aspirin 325 Mg Tab PO 325 mg QDAY BECKIE Administration Atorvastatin Calcium 40 mg 07/13/20 22:00 07/15/20 22:53 Atorvastatin 40 Mg Tab PO 40 mg QHS BECKIE Administration Famotidine 10 mg 07/13/20 10:00 07/16/20 10:09 Famotidine 10 Mg Tab PO 10 mg BID BECKIE Administration Heparin Sodium (Porcine) 5,000 unit 07/13/20 06:00 07/16/20 15:34 Heparin 5,000 Unit/1 Ml Vial SUB-Q 5,000 unit Q8HR BEC[facility]IE Administration Hydralazine HCl 50 mg 07/13/20 08:00 07/16/20 15:06 Hydralazine 25 Mg Tab PO Not Given TID BECKIE Hydralazine HCl 10 mg 07/13/20 14:40 07/14/20 06:13 Hydralazine 20 Mg/1 Ml Inj IV 10 mg Q4H PRN Administration ELEVATED BP Metoprolol Tartrate 25 mg 07/14/20 22:00 07/16/20 10:09 Metoprolol Tartrate 25 Mg Tab PO 25 mg BID [facility]EC[facility]IE Administration Miscellaneous Medication 420 mg 07/13/20 08:00 Ferric Citrate (Nf) PO TID [facility] Ondansetron HCl 4 mg 07/13/20 02:20 Ondansetron 4 Mg/2 Ml Inj IV Q8H PRN Nausea And Vomiting Polyethylene Glycol 17 gm 07/13/20 02:19 Polyethylene Glycol 3350 17 Gm Powder PO QDAY PRN Constipation Sodium Chloride 10 ml 07/13/20 10:00 07/16/20 13:41 Sodium Chloride 0.9% 10 Ml Flush Syringe IV Not Given BID BECKIE Sodium Chloride 10 ml 07/13/20 02:20 Sodium Chloride 0.9% 10 Ml Flush Syringe IV PRN PRN LINE FLUSH
[2020-07-17] MEDS: IPRATROPIUM/ALBUTEROL SULFATE 3 ML AMPUL.NEB IH SCH ×3 (08:05→21:13)
--- NOTE | 2020-07-17 08:58 | Electroencephalogram Report ---
Electroencephalogram EEG Date of exam: 07/16/20 History: confusion intermittent and or possible underlying dementia R/O Seizure Description: The waking background shows a poorly organization back ground 5-6 Hz with anterior rhythm is 3-4 low voltage no drowsiness or sleep is noted there is frequent eye opening and closure and musle artifact through out the recording No sleep is noted Throughout, the recording there are no epileptiform abnormalities, focal or lateralizing features, or significant interhemispheric findings. Interpretation: this is mildly abnormal record with diffuse back ground slowing in 5-6 Hznoted through out the awake record this finding is suggestive of encephalopathic process , toximetabolic and or drug effect can not be excluded Neuro degenerative disorder is a possibility Clincal correlation is in order
[2020-07-17] MEDS: HEPARIN 5,000 UNIT/1 ML VIAL SUB-Q SCH ×3 (09:47→22:11)
[2020-07-17] MEDS: FAMOTIDINE 10 MG TAB PO SCH ×2 (09:48→22:10)
[2020-07-17] MEDS: ASPIRIN 325 MG TAB PO SCH (09:49)
[2020-07-17] MEDS: METOPROLOL TARTRATE 25 MG TAB PO SCH (09:51)
[2020-07-17] MEDS: hydrALAZINE 25 MG TAB PO SCH ×3 (09:51→22:10)
[2020-07-17] MEDS: amLODIPine 5 MG TAB PO SCH (09:51)
[2020-07-17] MEDS ORDERED: METOPROLOL TARTRATE 25 MG TAB PO SCH (10:25)
--- NOTE | 2020-07-17 11:06 | Progress Note ---
Assessment and Plan - Patient Problems (1) Altered mental state Current Visit: Yes Status: Acute Plan to address problem: Mental status is altered. This is of recent onset. CT head was nondiagnostic. MRI of the brain could not be done. Consider doing contrast CT of the head if unable to verify history from family - they are in [facility]. (2) ESRD (end stage renal disease) Current Visit: No Status: Chronic Plan to address problem: Hemodialysis on a Wednesday, Wednesday and Wednesday schedule. (3) Hypertensive chronic kidney disease with stage 5 chronic kidney disease or end stage renal disease Current Visit: No Status: Chronic Plan to address problem: Follow-up blood pressure on current medications (4) Other fluid overload Current Visit: No Status: Chronic Plan to address problem: Fluid removal on dialysis and then reevaluate Subjective Date of service: 07/17/20 Principal diagnosis: End-stage renal disease with altered mental status Interval history: Patient seen lying in bed. He has no new complaints. He knows he is in the hospital but still not sure which one. He still does not know the month, date or year. I wrote on board in his room. MRI could not be done as she could not be verified. Patient's family is in [facility] Objective - Exam Narrative Exam: Elderly -[place] male lying in bed in no acute distress HEENT: NCAT, Neck: Supple, no venous distention CVS: S1S2 RRR with no murmur, rub or gallop Chest: Clear to auscultation Abdomen: Protuberant, soft, nontender, no organomegaly, bowel sounds are present Extremities: No edema Neuro: Awake, alert no focal deficits, memory impairment - Vital Signs Vital signs: Vital Signs - 12hr 07/16/20 07/17/20 07/17/20 23:45 05:45 09:51 Temperature 98.0 F 97.8 F Pulse Rate 98 H 99 H 99 H Respiratory 20 20 Rate Blood Pressure 142/100 168/102 168/102 O2 Sat by Pulse 97 98 Oximetry - Lab 07/14/20 04:23 07/16/20 10:08 Most recent lab results Calcium 9.4 mg/dL (8.4-10.2) 07/16/20 10:08 Medications & Allergies - Medications Allergies/Adverse Reactions: Allergies No Known Allergies Allergy (Unverified 11/20/18 16:31) Home Medications: Home Medications Medication Instructions Recorded Confirmed Last Taken Type Epoetin Blayne 10,000 Unit [Procrit] 10,000 unit IV NINO PRN #1 vial 12/02/1811/20/19 10:00 Rx HYDROcodone/APAP 5-325 [[place] 1 each PO Q6H PRN tablet 11/22/19 02/05/20 Unknown Rx 5-325 mg TAB] polyethylene glycoL 3350 [Miralax 17 gm PO QDAY PRN #30 powd.pack 11/22/19 02/05/20 Unknown Rx 3350] Acetaminophen [Acetaminophen TAB] 650 mg PO Q4H PRN tablet 02/08/20 Unknown Rx Aspirin 325 mg PO QDAY #30 tablet 02/08/20 Unknown Rx AtorvaSTATin [Lipitor] 40 mg PO QHS #30 tablet 02/08/20 Unknown Rx Ferric Citrate (Nf) [Auryxia] 420 mg PO TID #90 tab 02/08/20 Unknown Rx Metoprolol [Lopressor TAB] 100 mg PO BID #120 tablet 02/08/20 Unknown Rx amLODIPine 5 mg PO QDAY #30 tablet 02/08/20 Unknown Rx hydrALAZINE [Apresoline TAB] 50 tab PO TID #180 tablet 02/08/20 Unknown Rx Active Medications: Generic Name Dose Route Start Last Admin Trade Name Freq PRN Reason Stop Dose Admin Acetaminophen 650 mg 07/13/20 02:20 Acetaminophen 325 Mg Tab PO Q4H PRN Pain MILD(1-3)/Fever >100.5/RUIZ Albuterol/Ipratropium 1 ampul 07/15/20 08:00 07/17/20 08:05 Ipratropium/Albuterol Sulfate 3 Ml Ampul.Neb IH 1 ampul TIDRT BECKIE Administration Amlodipine Besylate 5 mg 07/13/20 10:00 07/17/20 09:51 Amlodipine 5 Mg Tab PO 5 mg QDAY BECKIE Administration Aspirin 325 mg 07/13/20 10:00 07/17/20 09:49 Aspirin 325 Mg Tab PO 325 mg QDAY BECKIE Administration Atorvastatin Calcium 40 mg 07/13/20 22:00 07/16/20 23:05 Atorvastatin 40 Mg Tab PO 40 mg QHS BECKIE Administration Famotidine 10 mg 07/13/20 10:00 07/17/20 09:48 Famotidine 10 Mg Tab PO 10 mg BID [facility] Administration Heparin Sodium (Porcine) 5,000 unit 07/13/20 06:00 07/17/20 09:47 Heparin 5,000 Unit/1 Ml Vial SUB-Q Not Given Q8HR [facility] Hydralazine HCl 50 mg 07/13/20 08:00 07/17/20 09:51 Hydralazine 25 Mg Tab PO 50 mg TID BECKIE Administration Hydralazine HCl 10 mg 07/13/20 14:40 07/14/20 06:13 Hydralazine 20 Mg/1 Ml Inj IV 10 mg Q4H PRN Administration ELEVATED BP Metoprolol Tartrate 50 mg 07/17/20 10:25 Metoprolol Tartrate 25 Mg Tab PO BID [facility] Miscellaneous Medication 420 mg 07/13/20 08:00 Ferric Citrate (Nf) PO TID [facility] Ondansetron HCl 4 mg 07/13/20 02:20 Ondansetron 4 Mg/2 Ml Inj IV Q8H PRN Nausea And Vomiting Polyethylene Glycol 17 gm 07/13/20 02:19 Polyethylene Glycol 3350 17 Gm Powder PO QDAY PRN Constipation Sodium Chloride 10 ml 07/13/20 10:00 07/16/20 23:06 Sodium Chloride 0.9% 10 Ml Flush Syringe IV 10 ml BID BECKIE Administration Sodium Chloride 10 ml 07/13/20 02:20 Sodium Chloride 0.9% 10 Ml Flush Syringe IV PRN PRN LINE FLUSH
[2020-07-17] MEDS ORDERED: METOPROLOL TARTRATE 25 MG TAB PO NR (11:15)
--- NOTE | 2020-07-17 14:48 | Progress Note ---
Assessment and Plan -- Acute metabolic encephalopathy CT head without contrast no acute abnormality MRI could not be done as history could not be verified Carotid Doppler no hemodynamically significant stenosis Neurochecks and supportive care Continue aspirin and statin Neurology consulted, EEG suggestive of diffuse encephalopathy Continue to provide supportive care and follow clinically --Dementia, history of Discussed with patient caregiver Ms. Melendez Patient does have history of dementia and apparently is becoming progressive Patient will need 12/10 supervision employment case manager consulted for placement --NSTEMI (non-ST elevated myocardial infarction) type II In the setting of end-stage renal disease Chronic elevation of troponins Echo; EF 40 to 45%, continue aspirin And statin -- ESRD on dialysis Hemodialysis per schedule --Hypertension Continue current antihypertensives As needed hydralazine --GERD; Protonix 40 mg p.o. daily. --Full CODE STATUS -- DVT prophylaxis: Heparin 5000 units subcu every 8 hours. Closely monitor the patient and adjust management as needed Plan of care reviewed with the patient and his nurse Follow pending neuro work-up Daily clinical course: 07/14; patient still lethargic and confused, sometimes Responds to simple questions appropriately Neuro work-up in progress Consult neurology when service available tomorrow 07/15; patient received hemodialysis today, confused Slow speech, neuro work-up is in progress Pending MRI, carotid Doppler no hemodynamically significant stenosis Follow neuro consult 07/16: Pending brain MRI, patient tolerating diet. Pending PT recommendation. Neurology following, remains confused 07/17: Canceled because history could not find. Called patient caregiver Mrs. Melendez phone #[phone]. According to the caregiver she is unable to take care of the patient as his dementia becoming progressive. Ms. Melendez requested placement for the patient for better care. Put a consult for the supportive employment case manager for placement. Disposition physical therapy occupational therapy Discharge when medically stable Hospitalist Physical General appearance: Present: no acute distress, well-nourished - EENT Eyes: Present: PERRL, EOM intact - Neck Neck: Present: supple, normal ROM - Respiratory Respiratory effort: normal Respiratory: bilateral: diminished, negative: rales, rhonchi, wheezing - Cardiovascular Rhythm: regular Heart Sounds: Present: S1 & S2 - Extremities Extremities: no ischemia, No edema - Abdominal General gastrointestinal: soft, non-tender, non-distended, normal bowel sounds - Integumentary Integumentary: Present: clear, warm - Psychiatric Psychiatric: appropriate mood/affect, cooperative - Neurologic Neurologic: CNII-XII intact, moves all extremities, oriented to person and place only Subjective Date of service: 07/17/20 Principal diagnosis: End-stage renal disease with altered mental status Interval history: Patient seen and examined. Medical records and medication list reviewed. No acute event overnight noted by the RN. Patient denies any chest pain or difficulty breathing. Patient is tolerating diet. Patient remains pleasantly confused, vitals noted and discussed plan of care with nursing staff Objective - Constitutional Vitals: Vital Signs - 12hr 07/17/20 07/17/20 07/17/20 05:45 08:10 09:51 Temperature 97.8 F Pulse Rate 99 H 99 H Pulse Rate [ 88 Bilateral Throughout] Respiratory 20 Rate Respiratory 18 Rate [Bilateral Throughout] Blood Pressure 168/102 168/102 O2 Sat by Pulse 98 Oximetry 07/17/20 07/17/20 07/17/20 10:00 13:10 13:55 Temperature Pulse Rate 99 H 99 H Pulse Rate [ Bilateral Throughout] Respiratory Rate Respiratory Rate [Bilateral Throughout] Blood Pressure 168/102 168/102 O2 Sat by Pulse 100 Oximetry - Labs CBC & Chem 7: 07/14/20 04:23 07/16/20 10:08 HEART Score - HEART Score Age: > 65 Risk factors: 1-2 risk factors Troponin: Troponin T 0.185 ng/mL (0.00-0.029) H* 07/12/20 23:20 Troponin: 1-3x normal limit
[2020-07-17] MEDS: METOPROLOL TARTRATE 50 MG TAB PO SCH (22:10)
[2020-07-18] MEDS: HEPARIN 5,000 UNIT/1 ML VIAL SUB-Q SCH ×2 (06:42→13:20)
--- NOTE | 2020-07-18 08:41 | Progress Note ---
Assessment and Plan - Patient Problems (1) Altered mental state Current Visit: Yes Status: Acute Plan to address problem: Mental status is altered. This is of recent onset. CT head was nondiagnostic. MRI of the brain could not be done. Consider doing contrast CT of the head if unable to verify history from family - they are in [facility]. (2) ESRD (end stage renal disease) Current Visit: No Status: Chronic Plan to address problem: Hemodialysis on a Wednesday, Wednesday and Wednesday schedule. (3) Hypertensive chronic kidney disease with stage 5 chronic kidney disease or end stage renal disease Current Visit: No Status: Chronic Plan to address problem: Follow-up blood pressure on current medications (4) Other fluid overload Current Visit: No Status: Chronic Plan to address problem: Improved with fluid removal on dialysis. Subjective Date of service: 07/18/20 Principal diagnosis: End-stage renal disease with altered mental status Interval history: Patient seen lying in bed. He has no new complaints. He knows he is in the hospital but still not sure which one. He still does not know the month, date or year. I wrote on board in his room yesterday but even then, today he still thought it was September and was unsure of the year. MRI could not be done as hi story could not be verified. Patient's family is in [place] [facility] Objective - Exam Narrative Exam: Elderly -[place]icar[place] male lying in bed in no acute distress HEENT: NCAT, Neck: Supple, no venous distention CVS: S1S2 RRR with no murmur, rub or gallop Chest: Clear to auscultation Abdomen: Protuberant, soft, nontender, no organomegaly, bowel sounds are present Extremities: No edema Neuro: Awake, alert no focal deficits, memory impairment - Vital Signs Vital signs: Vital Signs - 12hr 07/17/20 07/17/20 07/17/20 21:15 21:29 22:10 Temperature 97.9 F Pulse Rate 89 89 Pulse Rate [ 93 H Bilateral Throughout] Respiratory 20 Rate Respiratory 20 Rate [Bilateral Throughout] Blood Pressure 138/85 138/85 O2 Sat by Pulse 98 Oximetry - Lab 07/14/20 04:23 07/16/20 10:08 Most recent lab results Calcium 9.4 mg/dL (8.4-10.2) 07/16/20 10:08 Medications & Allergies - Medications Allergies/Adverse Reactions: Allergies No Known Allergies Allergy (Unverified 11/20/18 16:31) Home Medications: Home Medications Medication Instructions Recorded Confirmed Last Taken Type Epoetin Blayne 10,000 Unit [Procrit] 10,000 unit IV NINO PRN #1 vial 12/02/18 02/05/20 11/20/19 10:00 Rx HYDROcodone/APAP 5-325 [[place] 1 each PO Q6H PRN tablet 11/22/19 02/05/20 Unknown Rx 5-325 mg TAB] polyethylene glycoL 3350 [Miralax 17 gm PO QDAY PRN #30 powd.pack 11/22/19 02/05/20 Unknown Rx 3350] Acetaminophen [Acetaminophen TAB] 650 mg PO Q4H PRN tablet 02/08/20 Unknown Rx Aspirin 325 mg PO QDAY #30 tablet 02/08/20 Unknown Rx AtorvaSTATin [Lipitor] 40 mg PO QHS #30 tablet 02/08/20 Unknown Rx Ferric Citrate (Nf) [Auryxia] 420 mg PO TID #90 tab 02/08/20 Unknown Rx Metoprolol [Lopressor TAB] 100 mg PO BID #120 tablet 02/08/20 Unknown Rx amLODIPine 5 mg PO QDAY #30 tablet 02/08/20 Unknown Rx hydrALAZINE [Apresoline TAB] 50 tab PO TID #180 tablet 02/08/20 Unknown Rx Active Medications: Generic Name Dose Route Start Last Admin Trade Name Freq PRN Reason Stop Dose Admin Acetaminophen 650 mg 07/13/20 02:20 Acetaminophen 325 Mg Tab PO Q4H PRN Pain MILD(1-3)/Fever >100.5/RUIZ Albuterol/Ipratropium 1 ampul 07/15/20 08:00 07/17/20 21:13 Ipratropium/Albuterol Sulfate 3 Ml Ampul.Neb IH 1 ampul TIDRT BECKIE Administration Amlodipine Besylate 5 mg 07/13/20 10:00 07/17/20 09:51 Amlodipine 5 Mg Tab PO 5 mg QDAY BECKIE Administration Aspirin 325 mg 07/13/20 10:00 07/17/20 09:49 Aspirin 325 Mg Tab PO 325 mg QDAY BECKIE Administration Atorvastatin Calcium 40 mg 07/13/20 22:00 07/17/20 22:10 Atorvastatin 40 Mg Tab PO 40 mg QHS BECKIE Administration Famotidine 10 mg 07/13/20 10:00 07/17/20 22:10 Famotidine 10 Mg Tab PO 10 mg BID BECKIE Administration Heparin Sodium (Porcine) 5,000 unit 07/13/20 06:00 07/18/20 06:42 Heparin 5,000 Unit/1 Ml Vial SUB-Q Not Given Q8HR [facility] Hydralazine HCl 50 mg 07/13/20 08:00 07/17/20 22:10 Hydralazine 25 Mg Tab PO 50 mg TID BECKIE Administration Hydralazine HCl 10 mg 07/13/20 14:40 07/14/20 06:13 Hydralazine 20 Mg/1 Ml Inj IV 10 mg Q4H PRN Administration ELEVATED BP Metoprolol Tartrate 50 mg 07/17/20 22:00 07/17/20 22:10 Metoprolol Tartrate 50 Mg Tab PO 50 mg BID [facility] Administration Miscellaneous Medication 420 mg 07/13/20 08:00 Ferric Citrate (Nf) PO TID [facility] Ondansetron HCl 4 mg 07/13/20 02:20 Ondansetron 4 Mg/2 Ml Inj IV Q8H PRN Nausea And Vomiting Polyethylene Glycol 17 gm 07/13/20 02:19 Polyethylene Glycol 3350 17 Gm Powder PO QDAY PRN Constipation Sodium Chloride 10 ml 07/13/20 10:00 07/17/20 22:11 Sodium Chloride 0.9% 10 Ml Flush Syringe IV 10 ml BID BECKIE Administration Sodium Chloride 10 ml 07/13/20 02:20 Sodium Chloride 0.9% 10 Ml Flush Syringe IV PRN PRN LINE FLUSH
[2020-07-18] MEDS: IPRATROPIUM/ALBUTEROL SULFATE 3 ML AMPUL.NEB IH SCH ×2 (08:50→14:06)
[2020-07-18] MEDS: ASPIRIN 325 MG TAB PO SCH (09:49)
[2020-07-18] MEDS: hydrALAZINE 25 MG TAB PO SCH ×2 (09:49→13:19)
[2020-07-18] MEDS: FAMOTIDINE 10 MG TAB PO SCH (09:49)
[2020-07-18] MEDS: METOPROLOL TARTRATE 50 MG TAB PO SCH (09:50)
[2020-07-18] MEDS: amLODIPine 5 MG TAB PO SCH (09:50)
[2020-07-18 13:10] VITALS: BP 125/78
--- NOTE | 2020-07-18 14:51 | Discharge Summary ---
Providers - Providers Date of Admission: 07/15/20 13:38 Date of discharge: 07/18/20 Attending physician: VINAYAK CHESTER 07/13/20 02:29 Consult to Physician [CONS] Routine Comment: Consulting Provider: JOSELYN ESTRADA Physician Instructions: Reason For Exam: esrd 07/13/20 17:50 Consult to Physician [CONS] Routine Comment: Consulting Provider: ZACH FORMAN Physician Instructions: Reason For Exam: ESRD - established patient 07/15/20 11:11 Consult to Physician [CONS] Routine Comment: Consulting Provider: KALANI LEY Physician Instructions: Reason For Exam: Encephalopathy/neuro symptoms 07/16/20 07:57 Physical Therapy Evaluation and Treat [CONS] Routine Comment: Reason For Exam: Debility 07/16/20 11:09 Occupational Therapy Evaluate and Treat [CONS] Routine Comment: Reason For Exam: eval and treat 07/17/20 14:44 Consult to Case Management [CONS] Routine Services Needed at Discharge: Other Notified:: cm Additional Physician Instructions: placement Primary care physician: TECHNICAL SUPPORT COORDINATOR Hospitalization Condition: Fair Pertinent studies: Chest x-ray, head CT, carotid Doppler, 2D echo Hospital course: 70 y/o male with PMHx significant for ESRD in the setting of HTN, on MWF HD schedule as an outpatient at [facility], presented to the ED secondary to worsening mentation post dialysis treatment. Patient remains confused and is a poor historian. Per charts, it seems that he had been post HD treatment on Wednesday. Had CT head done without any acute abnormalities. Nephrology consulted for chronic HD needs. Neurology was consulted and recommended MRI brain and EEG. MRI could not be obtained as patient's history could not be verified, EEG showed findings for diffuse encephalopathy. Carotid Doppler showed less than 50% stenosis bilaterally, 2D echocardiogram showed EF 40 to 45%. Patient mental status improved to baseline. Had long discussion wi th the caregiver about patient's overall prognosis. Apparently patient is experiencing dementia for at least about a year now and it seems like his dementia might be progressing. Patient was evaluated by PT OT and recommended home health. Patient was discharged home with home health and [facility] nursing under supervision of his caregiver. Daily clinical course: 07/14; patient still lethargic and confused, sometimes Responds to simple questions appropriately Neuro work-up in progress Consult neurology when service available tomorrow 07/15; patient received hemodialysis today, confused Slow speech, neuro work-up is in progress Pending MRI, carotid Doppler no hemodynamically significant stenosis Follow neuro consult 07/16: Pending brain MRI, patient tolerating diet. Pending PT recommendation. Neurology following, remains confused 07/17: MRI Canceled because history could not be verified. Called patient caregiver Mrs. Melendez phone #[phone]. According to the caregiver she is unable to take care of the patient as his dementia becoming progressive. Ms. Melendez requested placement for the patient for better care. Put a consult for the bilingual case manager for placement. 07/18: Discussed with neuro and CM. Per neuro no additional workup needed. Patient at his baseline with progressive dementia. CM had further discussion with child care provider and patient will be discharge home with and half-way nursing for further assistance at home. Mx per problem list: -- Acute metabolic encephalopathy CT head without contrast no acute abnormality MRI could not be done as history could not be verified Carotid Doppler no hemodynamically significant stenosis Neurochecks and supportive care Continue aspirin and statin Neurology consulted, EEG suggestive of diffuse encephalopathy Continue to provide supportive care --Dementia, history of Discussed with patient caregiver Ms. Melendez Patient does have history of dementia and apparently is becoming progressive Patient will need 12/10 supervision --NSTEMI (non-ST elevated myocardial infarction) type II In the setting of end-stage renal disease Chronic elevation of troponins Echo; EF 40 to 45%, continue aspirin And statin --Chronic systolic CHF, EF 40 to 45% Continue aspirin and statin, volume control with hemodialysis -- ESRD on dialysis Hemodialysis per schedule --Hypertension Continue current antihypertensives --GERD; Protonix 40 mg p.o. daily. --Full CODE STATUS -- DVT prophylaxis: s/p Heparin 5000 units subcu every 8 hours. Disposition: - TO HOME OR SELFCARE Final Discharge Diagnosis (Prints w/discharge instructions): Acute metabolic encephalopathy, dementia, NSTEMI type II, end-stage renal disease on hemo dialysis, hypertension, GERD. Time spent for discharge: 34 minutes Core Measure Documentation - Palliative Care Palliative Care/ Comfort Measures: Not Applicable - Core Measures Any of the following diagnoses?: history only Exam - Physical Exam Narrative exam: General appearance: Present: no acute distress, well-nourished - EENT Eyes: Present: PERRL, EOM intact - Neck Neck: Present: supple, normal ROM - Respiratory Respiratory effort: normal Respiratory: bilateral: diminished, negative: rales, rhonchi, wheezing - Cardiovascular Rhythm: regular Heart Sounds: Present: S1 & S2 - Extremities Extremities: no ischemia, No edema - Abdominal General gastrointestinal: soft, non-tender, non-distended, normal bowel sounds - Integumentary Integumentary: Present: clear, warm - Psychiatric Psychiatric: appropriate mood/affect, cooperative - Neurologic Neurologic: CNII-XII intact, moves all extremities, oriented to person and place only - Constitutional Vitals: Temp Pulse Resp BP Pulse Ox 98.2 F 85 19 125/78 99 07/18/20 12:49 07/18/20 13:19 07/18/20 12:49 07/18/20 13:19 07/18/20 12:49 Plan Activity: fall precautions Weight Bearing Status: Weight Bear as Tolerated Diet: renal Special Instructions: restrict fluid intake to (1.2L per day), physical therapy, home health RN Follow up with: PRIMARY MD SHEILA [Primary Care Provider] - 3-5 Days JEFRY TY MD [Staff Physician] - 7 Days
== END 2020-07-18 20:25 | disposition home or self-care (01) | DRG 70 ==
LOC: ED 16:06 → 3A 07-13 01:51 → OBSVTOIN 07-15 13:38 → 3A 07-16 17:39
PROVIDERS: ADMIT Hospitalist; ATTEND Internal Medicine
PROC: 5A1D70Z Performance of Urinary Filtration, Intermittent, Less than 6 Hours Per Day (ICD-10-PCS; principal; 2020-07-15)
PROC: 5A1D70Z Performance of Urinary Filtration, Intermittent, Less than 6 Hours Per Day (ICD-10-PCS; 2020-07-17)
DX: G93.41 Metabolic encephalopathy (principal); I21.A1 Myocardial infarction type 2; N18.6 End stage renal disease; I12.0 Hypertensive chronic kidney disease with stage 5 chronic kidney disease or end stage renal disease; E78.5 Hyperlipidemia, unspecified; E87.70 Fluid overload, unspecified; K21.9 Gastro-esophageal reflux disease without esophagitis; F03.90 Unspecified dementia, unspecified severity, without behavioral disturbance, psychotic disturbance, mood disturbance, and anxiety; Z20.822 Contact with and (suspected) exposure to COVID-19; Z99.2 Dependence on renal dialysis
CPT/HCPCS: 36415; 70450; 71045; 80048; 80053; 80061; 80074; 80320; 82140; 82962; 84484; 85025; 85610; 85730; 93005; 93306; 93880; 94640; 95819; 96374; G0378; A9270-GY; G0480; J0360; J0885; J1644

== ENCOUNTER 2020-07-19 18:05 | Emergency (ER) | payer MEDICARE ==
--- NOTE | 2020-07-19 19:08 | Event Note ---
ED Screening Note ED Screening Note: hx of dementia advised by nursing staff that brought in by for AMS he has been evaluated several times for AMS he is able to tell me his name he denies any pain anywhere he denies any CP, SOB, abd pain pt is poor historian This initial assessment/diagnostic orders/clinical plan/treatment(s) is/are s ubject to change based on patients health status, clinical progression and re- assessment by fellow clinical providers in the ED. Further treatment and workup at subsequent clinical providers discretion. Patient/guardian urged not to elope from the ED as their condition may be serious if not clinically assessed and managed. Initial orders include: labs, EKG, UA
[2020-07-19 19:42] LABS: Basophils % (Auto) 0.6 % (0.0-1.8); Eosinophils # (Auto) 0.4 K/mm3 (0.0-0.4); Eosinophils % (Auto) 7.2 % (0.0-4.3); Hematocrit 37.5 % (35.5-45.6); Hemoglobin 12.4 gm/dl (11.8-15.2); Lymphocytes # (Auto) 1.2 K/mm3 (1.2-5.4); Lymphocytes % (Auto) 22.5 % (13.4-35.0); Mean Corpuscular HGB Conc 33 % (32-34); Mean Corpuscular Volume 106 fl (84-94); Monocytes # (Auto) 0.9 K/mm3 (0.0-0.8); Platelet Count 138 K/mm3 (140-440); Red Blood Count 3.53 M/mm3 (3.65-5.03); Red Cell Distribution Width 17.5 % (13.2-15.2)
[2020-07-19 20:05] LABS: Albumin 3.3 g/dL (3.9-5); Calcium 8.8 mg/dL (8.4-10.2)
--- NOTE | 2020-07-19 22:39 | Emergency Department Report ---
ED Altered Mental Status HPI - General Chief Complaint: Altered Mental Status Stated Complaint: NOT RESPONSIVE Time Seen by Provider: 07/19/20 19:06 Source: family Mode of arrival: Wheelchair Limitations: Physical Limitation - History of Present Illness Initial Comments: 70-year-old male, history of dementia, CVA, ESRD, diabetes, hypertension, CHF, presents to ED with altered mental status. Spoke with patient's caregiver, Nora, over the phone. She states patient was his normal self when she dropped him off for dialysis this morning. Ms. Melendez states that when she picked the patient up from dialysis, he would not speak to her. States he would only shake his head yes or no to her questions. She states he kept nodding off and falling asleep, so she decided to bring him to the ER. Ms. Melendez states this has happened multiple times in the past. Patient was just discharged on yesterday following an admission for altered mental status where he received a full work- up. Patient is currently awake and alert. I asked the patient if he knows where he is, patient responds, "I am in the hospital." When asked if he knows why he is here he states he does not know. When asked who the president is, patient responds Trump. At times but this is incorrect patient responds, "Why? Are you the president? Uh oh, are you mad because you are the president?" Discharge summary from yesterday shows that patient has progressing dementia. MD Complaint: decreased responsiveness -: This evening Severity: mild Associated Symptoms: denies: chest pain, headaches, nausea/vomiting, shortness of breath - Related Data Previous Rx's Medication Instructions Recorded Last Taken Type Epoetin Blayne 10,000 Unit [Procrit] 10,000 unit IV NINO PRN #1 vial 12/02/18 11/20/19 10:00 Rx HYDROcodone/APAP 5-325 [[place] 1 each PO Q6H PRN tablet 11/22/19 Unknown Rx 5-325 mg TAB] polyethylene glycoL 3350 [Miralax 17 gm PO QDAY PRN #30 powd.pack 11/22/19 Unknown Rx 3350] Acetaminophen [Acetaminophen TAB] 650 mg PO Q4H PRN tablet 02/08/20 Unknown Rx Aspirin 325 mg PO QDAY #30 tablet 02/08/20 Unknown Rx AtorvaSTATin [Lipitor] 40 mg PO QHS #30 tablet 02/08/20 Unknown Rx Ferric Citrate (Nf) [Auryxia] 420 mg PO TID #90 tab 02/08/20 Unknown Rx amLODIPine 5 mg PO QDAY #30 tablet 02/08/20 Unknown Rx hydrALAZINE [Apresoline TAB] 50 tab PO TID #180 tablet 02/08/20 Unknown Rx Metoprolol [Lopressor TAB] 50 mg PO BID tablet 07/18/20 Unknown Rx Allergies Allergy/AdvReac Type Severity Reaction Status Date / Time No Known Allergies Allergy Unverified 11/20/18 16:31 ED Review of Systems ROS: Stated complaint: NOT RESPONSIVE Other details as noted in HPI Comment: All other systems reviewed and negative Cardiovascular: denies: chest pain Gastrointestinal: denies: abdominal pain, vomiting Neurological: denies: headache ED Past Medical Hx - Past Medical History Previous Medical History?: Yes Hx Hypertension: Yes Hx Renal Disease: Yes (MWF) - Surgical History Past Surgical History?: Yes Additional Surgical History: Left upper arm fistula. - Social History Smoking Status: Never Smoker - Medications Home Medications: Home Medications Medication Instructions Recorded Confirmed Last Taken Type Epoetin Blayne 10,000 Unit [Procrit] 10,000 unit IV NINO PRN #1 vial 12/02/18 02/05/20 11/20/19 10:00 Rx HYDROcodone/APAP 5-325 [[place] 1 each PO Q6H PRN tablet 11/22/19 02/05/20 Unknown Rx 5-325 mg TAB] polyethylene glycoL 3350 [Miralax 17 gm PO QDAY PRN #30 powd.pack 11/22/19 02/05/20 Unknown Rx 3350] Acetaminophen [Acetaminophen TAB] 650 mg PO Q4H PRN tablet 02/08/20 Unknown Rx Aspirin 325 mg PO QDAY #30 tablet 02/08/20 Unknown Rx AtorvaSTATin [Lipitor] 40 mg PO QHS #30 tablet 02/08/20 Unknown Rx Ferric Citrate (Nf) [Auryxia] 420 mg PO TID #90 tab 02/08/20 Unknown Rx amLODIPine 5 mg PO QDAY #30 tablet 02/08/20 Unknown Rx hydrALAZINE [Apresoline TAB] 50 tab PO TID #180 tablet 02/08/20 Unknown Rx Metoprolol [Lopressor TAB] 50 mg PO BID tablet 07/18/20 Unknown Rx ED Physical Exam - General Limitations: Physical Limitation General appearance: alert, in no apparent distress - Head Head exam: Present: atraumatic, normocephalic - Eye Eye exam: Present: normal appearance, EOMI - ENT ENT exam: Present: mucous membranes moist - Neck Neck exam: Present: normal inspection - Respiratory Respiratory exam: Present: normal lung sounds bilaterally. Absent: respiratory distress - Cardiovascular Cardiovascular Exam: Present: regular rate, normal rhythm - GI/Abdominal GI/Abdominal exam: Present: soft. Absent: distended, tenderness - Extremities Exam Extremities exam: Present: normal inspection - Neurological Exam Neurological exam: Present: alert, CN II-XII intact. Absent: oriented X3 (oriented to person and self), motor sensory deficit - Psychiatric Psychiatric exam: Present: normal affect, normal mood - Skin Skin exam: Present: warm, dry, intact, normal color ED Course Vital Signs 07/19/20 07/19/20 07/19/20 18:37 22:16 22:17 Temperature 98.1 F Pulse Rate 99 H 90 109 H Respiratory 17 17 17 Rate Blood Pressure Blood Pressure 106/72 [Right] O2 Sat by Pulse 100 97 95 Oximetry 07/19/20 07/19/20 07/19/20 22:18 22:19 22:21 Temperature Pulse Rate 113 H 93 H 98 H Respiratory 15 19 15 Rate Blood Pressure 121/79 121/79 121/79 Blood Pressure [Right] O2 Sat by Pulse 98 97 97 Oximetry 07/19/20 07/19/20 07/19/20 22:23 22:25 22:27 Temperature Pulse Rate 105 H 93 H 92 H Respiratory 19 19 11 L Rate Blood Pressure 121/79 121/79 121/79 Blood Pressure [Right] O2 Sat by Pulse 97 97 96 Oximetry 07/19/20 07/19/20 07/19/20 22:29 22:30 22:31 Temperature Pulse Rate 89 106 H 87 Respiratory 17 18 18 Rate Blood Pressure 121/79 127/81 127/81 Blood Pressure [Right] O2 Sat by Pulse 97 99 96 Oximetry 07/19/20 07/19/20 07/19/20 22:33 22:35 22:37 Temperature Pulse Rate 93 H 105 H 87 Respiratory 21 18 18 Rate Blood Pressure 127/81 127/81 127/81 Blood Pressure [Right] O2 Sat by Pulse 96 95 97 Oximetry 07/19/20 07/19/20 07/19/20 22:39 22:41 22:43 Temperature Pulse Rate 97 H 112 H 107 H Respiratory 17 13 14 Rate Blood Pressure 127/81 127/81 127/81 Blood Pressure [Right] O2 Sat by Pulse 97 96 97 Oximetry 07/19/20 07/19/20 07/19/20 22:45 22:46 22:47 Temperature Pulse Rate 89 96 H 96 H Respiratory 15 12 16 Rate Blood Pressure 127/81 152/87 152/87 Blood Pressure [Right] O2 Sat by Pulse 97 98 97 Oximetry 07/19/20 07/19/20 07/19/20 22:49 22:51 22:53 Temperature Pulse Rate 97 H 92 H Respiratory 15 17 13 Rate Blood Pressure 152/87 152/87 152/87 Blood Pressure [Right] O2 Sat by Pulse 97 97 96 Oximetry 07/19/20 07/19/20 07/19/20 22:55 22:57 22:59 Temperature Pulse Rate 87 98 H Respiratory 16 17 15 Rate Blood Pressure 152/87 152/87 152/87 Blood Pressure [Right] O2 Sat by Pulse 96 97 96 Oximetry 07/19/20 07/19/20 07/19/20 23:00 23:01 23:03 Temperature Pulse Rate 93 H 86 88 Respiratory 16 15 17 Rate Blood Pressure 131/84 131/84 131/84 Blood Pressure [Right] O2 Sat by Pulse 97 97 97 Oximetry 07/19/20 07/19/20 07/19/20 23:05 23:07 23:09 Temperature Pulse Rate 90 93 H 86 Respiratory 16 17 16 Rate Blood Pressure 131/84 131/84 131/84 Blood Pressure [Right] O2 Sat by Pulse 97 97 96 Oximetry 07/19/20 07/19/20 07/19/20 23:11 23:13 23:15 Temperature Pulse Rate 91 H 91 H 86 Respiratory 15 12 18 Rate Blood Pressure 131/84 131/84 138/81 Blood Pressure [Right] O2 Sat by Pulse 97 98 97 Oximetry 07/19/20 07/19/20 07/19/20 23:17 23:19 23:21 Temperature Pulse Rate 87 87 92 H Respiratory 15 15 17 Rate Blood Pressure 138/81 138/81 138/81 Blood Pressure [Right] O2 Sat by Pulse 96 97 97 Oximetry 07/19/20 07/19/20 07/19/20 23:23 23:25 23:27 Temperature Pulse Rate 99 H 86 126 H Respiratory 22 16 22 Rate Blood Pressure 138/81 138/81 138/81 Blood Pressure [Right] O2 Sat by Pulse 95 99 95 Oximetry 07/19/20 07/19/20 07/19/20 23:29 23:30 23:31 Temperature Pulse Rate 119 H 129 H 86 Respiratory 24 18 19 Rate Blood Pressure 138/81 144/100 144/100 Blood Pressure [Right] O2 Sat by Pulse 97 100 98 Oximetry 07/19/20 07/19/20 07/19/20 23:33 23:35 23:37 Temperature Pulse Rate 96 H 107 H 89 Respiratory 18 23 15 Rate Blood Pressure 144/100 144/100 144/100 Blood Pressure [Right] O2 Sat by Pulse 97 93 98 Oximetry 07/19/20 07/19/20 07/19/20 23:39 23:41 23:43 Temperature Pulse Rate 99 H 93 H 95 H Respiratory 21 14 18 Rate Blood Pressure 144/100 144/100 144/100 Blood Pressure [Right] O2 Sat by Pulse 95 99 98 Oximetry 07/19/20 07/19/20 07/19/20 23:45 23:47 23:49 Temperature Pulse Rate 107 H 84 98 H Respiratory 25 H 13 21 Rate Blood Pressure 148/93 148/93 148/93 Blood Pressure [Right] O2 Sat by Pulse 95 99 94 Oximetry 07/19/20 07/19/20 07/19/20 23:51 23:53 23:55 Temperature Pulse Rate 86 93 H 105 H Respiratory 21 17 22 Rate Blood Pressure 148/93 148/93 148/93 Blood Pressure [Right] O2 Sat by Pulse 99 94 95 Oximetry - Lab Data Result diagrams: 07/19/20 19:16 07/19/20 22:39 Lab Results 07/19/20 07/19/20 07/19/20 Range/Units 19:16 19:16 22:39 WBC 5.5 (4.5-11.0) K/mm3 RBC 3.53 L (3.65-5.03) M/mm3 Hgb 12.4 (11.8-15.2) gm/dl Hct 37.5 (35.5-45.6) % MCV 106 H (84-94) fl MCH 35 H (28-32) pg MCHC 33 (32-34) % RDW 17.5 H (13.2-15.2) % Plt Count 138 L (140-440) K/mm3 Lymph % (Auto) 22.5 (13.4-35.0) % [place] % (Auto) 16.0 H (0.0-7.3) % Eos % (Auto) 7.2 H (0.0-4.3) % Baso % (Auto) 0.6 (0.0-1.8) % Lymph # (Auto) 1.2 (1.2-5.4) K/mm3 [place] # (Auto) 0.9 H (0.0-0.8) K/mm3 Eos # (Auto) 0.4 (0.0-0.4) K/mm3 Baso # (Auto) 0.0 (0.0-0.1) K/mm3 Seg Neutrophils % 53.7 (40.0-70.0) % Seg Neutrophils # 3.0 (1.8-7.7) K/mm3 Sodium 131 L D 140 D (137-145) mmol/L Potassium 3.9 (3.6-5.0) mmol/L Chloride 93.0 L (98-107) mmol/L Carbon Dioxide 27 (22-30) mmol/L Anion Gap 15 mmol/L BUN 17 (9-20) mg/dL Creatinine 5.6 H (0.8-1.3) mg/dL Estimated GFR 12 ml/min BUN/Creatinine Ratio 3 % Glucose 146 H (75-100) mg/dL Calcium 8.8 (8.4-10.2) mg/dL Magnesium 1.80 (1.7-2.3) mg/dL Total Bilirubin 0.30 (0.1-1.2) mg/dL AST 16 (5-40) units/L ALT 14 (7-56) units/L Alkaline Phosphatase 38 (35-129) units/L Total Creatine Kinase 69 (55-170) units/L Troponin T 0.175 H* (0.00-0.029) ng/mL Total Protein 6.7 (6.3-8.2) g/dL Albumin 3.3 L (3.9-5) g/dL Albumin/Globulin Ratio 1.0 % Plasma/Serum Alcohol (0-0.07) % 04/30/ Range/Units 22:39 WBC (4.5-11.0) K/mm3 RBC (3.65-5.03) M/mm3 Hgb (11.8-15.2) gm/dl Hct (35.5-45.6) % MCV (84-94) fl MCH (28-32) pg MCHC (32-34) % RDW (13.2-15.2) % Plt Count (140-440) K/mm3 Lymph % (Auto) (13.4-35.0) % [place] % (Auto) (0.0-7.3) % Eos % (Auto) (0.0-4.3) % Baso % (Auto) (0.0-1.8) % Lymph # (Auto) (1.2-5.4) K/mm3 [place] # (Auto) (0.0-0.8) K/mm3 Eos # (Auto) (0.0-0.4) K/mm3 Baso # (Auto) (0.0-0.1) K/mm3 Seg Neutrophils % (40.0-70.0) % Seg Neutrophils # (1.8-7.7) K/mm3 Sodium (137-145) mmol/L Potassium (3.6-5.0) mmol/L Chloride (98-107) mmol/L Carbon Dioxide (22-30) mmol/L Anion Gap mmol/L BUN (9-20) mg/dL Creatinine (0.8-1.3) mg/dL Estimated GFR ml/min BUN/Creatinine Ratio % Glucose (75-100) mg/dL Calcium (8.4-10.2) mg/dL Magnesium (1.7-2.3) mg/dL Total Bilirubin (0.1-1.2) mg/dL AST (5-40) units/L ALT (7-56) units/L Alkaline Phosphatase (35-129) units/L Total Creatine Kinase (55-170) units/L Troponin T (0.00-0.029) ng/mL Total Protein (6.3-8.2) g/dL Albumin (3.9-5) g/dL Albumin/Globulin Ratio % Plasma/Serum Alcohol < 0.01 (0-0.07) % - EKG Data -: EKG Interpreted by Me EKG shows normal: axis, QRS complexes, ST-T waves Rate: normal Interpretation: other (Atrial flutter) - Medical Decision Making 70-year-old male presents to ED with altered mental status per caregiver. Here in the ED, patient has been responsive. He is somewhat confused as far as the year and who is the current president, however patient apparently has a history of dementia. Patient was just discharged on yesterday following an admission for altered mental status. He had a complete work-up, including evaluation by neurology. Discharge summary states: "Apparently patient is experiencing dementia for at least about a year now and it seems like his dementia might be progressing. Patient was evaluated by PT OT and recommended home health. Patient was discharged home with home health and [facility] nursing under supervision of his caregiver." Work-up is unremarkable. Troponin is elevated, however patient has had chronically elevated troponins during all of his admissions. This is likely secondary to his renal failure. Initial chemistry had a sodium of 131, however this was repeated and found to be 140. Vital signs are stable. Patient will be discharged home at this time. Critical care attestation.: If time is entered above; I have spent that time in minutes in the direct care of this critically ill patient, excluding procedure time. ED Disposition Clinical Impression: Mental status change resolved, Dementia Disposition: DC-01 TO HOME OR SELFCARE Is pt being admited?: No Condition: Stable Instructions: Dementia Caregiver Guide, Dementia, [id number] Referrals: PRIMARY CARE, [Primary Care Provider] - 3-5 Days Time of Disposition: 00:17
[2020-07-20 01:04] VITALS: BP 146/86
== END 2020-07-20 01:11 | disposition home or self-care (01) ==
LOC: ED 18:05
DX: F03.90 Unspecified dementia, unspecified severity, without behavioral disturbance, psychotic disturbance, mood disturbance, and anxiety (principal); I10 Essential (primary) hypertension; Z98.890 Other specified postprocedural states; Z79.899 Other long term (current) drug therapy
CPT/HCPCS: 36415; 80053; 80320; 82550; 83735; 84295; 84484; 85025; 93005; G0480

== ENCOUNTER 2020-09-13 16:04 | Emergency (ER) | payer MEDICARE ==
--- NOTE | 2020-09-13 16:48 | Emergency Department Report ---
ED General Adult HPI - General Chief complaint: Fall Stated complaint: BACK AND HIP PAIN PUI?: No Time Seen by Provider: 09/13/20 16:30 Source: patient, EMS Mode of arrival: Stretcher Limitations: No Limitations - History of Present Illness Initial comments: Patient is a 70-year-old male who presents emergency room for a fall. Patient was at dialysis and slipped out of his wheelchair. Patient landed on his left side. Patient did not hit his head. Patient had no loss of consciousness. The dialysis nurse then called the family and the family wants the patient evaluated in the ER. EMS states the patient was ambulatory to the ambulance from the dialysis center. EMS states the patient has baseline mentation and did not hit his head. Patient's been acting normal. Patient's vital signs are stable. Patient denies pain. Patient is alert and oriented x2. Patient is disoriented to time. Patient answers some questions appropriately. Patient has history of dementia. Patient had full dialysis and tolerated dialysis without difficulty. Patient states he is feeling fine. Patient is ambulatory at this time. -: Sudden Severity scale (0 -10): 0 Consistency: constant Improves with: none Worsens with: none Associated Symptoms: denies other symptoms Treatments Prior to Arrival: none - Related Data Previous Rx's Medication Instructions Recorded Last Taken Type Epoetin Blayne 10,000 Unit [Procrit] 10,000 unit IV NINO PRN #1 vial 12/02/18 11/20/19 10:00 Rx HYDROcodone/APAP 5-325 [[place] 1 each PO Q6H PRN tablet 11/22/19 Unknown Rx 5-325 mg TAB] polyethylene glycoL 3350 [Miralax 17 gm PO QDAY PRN #30 powd.pack 11/22/19 Unknown Rx 3350] Acetaminophen [Acetaminophen TAB] 650 mg PO Q4H PRN tablet 02/08/20 Unknown Rx Aspirin 325 mg PO QDAY #30 tablet 02/08/20 Unknown Rx AtorvaSTATin [Lipitor] 40 mg PO QHS #30 tablet 02/08/20 Unknown Rx Ferric Citrate (Nf) [Auryxia] 420 mg PO TID #90 tab 02/08/20 Unknown Rx amLODIPine 5 mg PO QDAY #30 tablet 02/08/20 Unknown Rx hydrALAZINE [Apresoline TAB] 50 tab PO TID #180 tablet 02/08/20 Unknown Rx Metoprolol [Lopressor TAB] 50 mg PO BID tablet 07/18/20 Unknown Rx Allergies Allergy/AdvReac Type Severity Reaction Status Date / Time No Known Allergies Allergy Unverified 11/20/18 16:31 ED Review of Systems ROS: Stated complaint: BACK AND HIP PAIN Other details as noted in HPI Constitutional: denies: chills, fever Eyes: denies: eye pain, eye discharge, vision change ENT: denies: ear pain, throat pain Respiratory: denies: cough, shortness of breath, wheezing Cardiovascular: denies: chest pain, palpitations Endocrine: no symptoms reported Gastrointestinal: denies: abdominal pain, nausea, diarrhea Genitourinary: denies: urgency, dysuria Musculoskeletal: denies: back pain, joint swelling, arthralgia Skin: denies: rash, lesions Neurological: denies: headache, weakness, paresthesias Psychiatric: denies: anxiety, depression Hematological/Lymphatic: denies: easy bleeding, easy bruising ED Past Medical Hx - Past Medical History Previous Medical History?: Yes Hx Hypertension: Yes Hx Renal Disease: Yes (MWF) Hx Dementia: Yes - Surgical History Past Surgical History?: Yes Additional Surgical History: Left upper arm fistula. - Family History Family history: no significant - Social History Smoking Status: Never Smoker Substance Use Type: Alcohol - Medications Home Medications: Home Medications Medication Instructions Recorded Confirmed Last Taken Type Epoetin Blayne 10,000 Unit [Procrit] 10,000 unit IV NINO PRN #1 vial 12/02/18 02/05/20 11/20/19 10:00 Rx HYDROcodone/APAP 5-325 [[place] 1 each PO Q6H PRN tablet 11/22/19 02/05/20 Unknown Rx 5-325 mg TAB] polyethylene glycoL 3350 [Miralax 17 gm PO QDAY PRN #30 powd.pack 11/22/19 02/05/20 Unknown Rx 3350] Acetaminophen [Acetaminophen TAB] 650 mg PO Q4H PRN tablet 02/08/20 Unknown Rx Aspirin 325 mg PO QDAY #30 tablet 02/08/20 Unknown Rx AtorvaSTATin [Lipitor] 40 mg PO QHS #30 tablet 02/08/20 Unknown Rx Ferric Citrate (Nf) [Auryxia] 420 mg PO TID #90 tab 02/08/20 Unknown Rx amLODIPine 5 mg PO QDAY #30 tablet 02/08/20 Unknown Rx hydrALAZINE [Apresoline TAB] 50 tab PO TID #180 tablet 02/08/20 Unknown Rx Metoprolol [Lopressor TAB] 50 mg PO BID tablet 07/18/20 Unknown Rx ED Physical Exam - General Limitations: No Limitations General appearance: alert, in no apparent distress - Head Head exam: Present: atraumatic, normocephalic - Eye Eye exam: Present: normal appearance, PERRL Pupils: Present: normal accommodation - ENT ENT exam: Present: mucous membranes moist - Neck Neck exam: Present: normal inspection, full ROM. Absent: tenderness, meningismus - Respiratory Respiratory exam: Present: normal lung sounds bilaterally. Absent: respiratory distress, wheezes, rales - Cardiovascular Cardiovascular Exam: Present: regular rate, normal rhythm. Absent: systolic murmur, diastolic murmur, rubs, gallop - GI/Abdominal GI/Abdominal exam: Present: soft, normal bowel sounds. Absent: distended, tenderness, guarding - Rectal Rectal exam: Present: deferred - Extremities Exam Extremities exam: Present: normal inspection, full ROM, normal capillary refill. Absent: tenderness, calf tenderness - Back Exam Back exam: Present: normal inspection, full ROM. Absent: tenderness, CVA tenderness (R), CVA tenderness (L), muscle spasm, paraspinal tenderness, vertebral tenderness - Neurological Exam Neurological exam: Present: alert, oriented X3, CN II-XII intact, normal gait - Psychiatric Psychiatric exam: Present: normal affect, normal mood - Skin Skin exam: Present: warm, dry, intact, normal color. Absent: rash ED Course - Reevaluation(s) Reevaluation #1: Patient is medically cleared. Patient does not have any complaints nor neurologic findings. Patient is stable for discharge. Patient's family will be contacted by the nurse to pick the patient up. I discussed all results and clinical findings with patient. I discussed plan of care with patient. Patient agrees with plan of care. Patient is stable for discharge. Patient will be discharged home. Patient given discharge instructions. Patient voiced understanding of discharge instructions. 09/13/20 16:46 ED Medical Decision Making - Medical Decision Making Patient is a 70-year-old male who presents emergency room for a fall at dialysis. Patient received a full treatment. Patient slipped out of his wheelchair and fell to the left side of his body. Patient did not have any complaints. Patient was amatory at dialysis. Patient ambulated to the ambulance. Patient was brought in by EMS. Patient patient denying complaints. Patient denying pain. Patient had full medical exam. Patient's neurological exam is intact. Patient is a baseline mental status with his dementia. Patient answers most questions properly. Patient's not require any further emergency medical service. Patient does not require any further diagnostic. Patient not require any inpatient services. Patient is stable for discharge. Patient will be discharged home. Patient will be contacted to the patient. - Differential Diagnosis Fall, Critical care attestation.: If time is entered above; I have spent that time in minutes in the direct care of this critically ill patient, excluding procedure time. ED Disposition Clinical Impression: ESRD on dialysis Fall Qualifiers: Encounter type: initial encounter Qualified Code(s): W19.XXXA - Unspecified fall, initial encounter Disposition: DC-01 TO HOME OR SELFCARE Is pt being admited?: No Does the pt Need Aspirin: No Condition: Stable Instructions: Dialysis, Fall Prevention in the Home, Adult, [id number] Additional Instructions: Patient to follow-up with primary care in 2 to 3 days. Patient to follow-up with fan balancer in 2 to 3 days. Patient to continue dialysis schedule as directed by fan balancer. Patient to rest. Patient continue all medications. Patient to return to the ER if condition worsens, changes or new symptoms arise. Time of Disposition: 16:50
== END 2020-09-13 18:13 | disposition home or self-care (01) ==
LOC: ED 16:04
DX: I12.0 Hypertensive chronic kidney disease with stage 5 chronic kidney disease or end stage renal disease (principal); N18.6 End stage renal disease; F03.90 Unspecified dementia, unspecified severity, without behavioral disturbance, psychotic disturbance, mood disturbance, and anxiety; Z99.2 Dependence on renal dialysis; Z98.890 Other specified postprocedural states; Z79.899 Other long term (current) drug therapy; W19.XXXA Unspecified fall, initial encounter; Y93.89 Activity, other specified; Y92.89 Other specified places as the place of occurrence of the external cause; Y99.8 Other external cause status

== ENCOUNTER 2020-09-18 12:09 | Observation (INO) | payer MEDICARE ==
--- NOTE | 2020-09-18 12:40 | Emergency Department Report ---
HPI - General Chief Complaint: Extremity Problem,Nontraumatic Time Seen by Provider: 09/18/20 12:31 - HPI HPI: This is a 70-year-old male who presents to the emergency department via EMS from dialysis with concern for swelling of the left arm and possible infection around the access site of his fistula. The patient did not receive dialysis today because of this. Patient has a past medical history of hypertension, end-stage renal disease on hemodialysis on Wednesday/Wednesday/Wednesday, diabetes, and some history of dementia/encephalopathy. Patient is currently AAO x2 to person and place but not time. He denies any pain or any other physical complaints. 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 Simmons. Patient denies any fever, shortness of breath, chest pain. He denies any pain to the affected left arm. The patient did not take anything, nor receive anything, for his symptoms prior to presentation today. ED Past Medical Hx - Past Medical History Previous Medical History?: Yes Hx Hypertension: Yes Hx Renal Disease: Yes (MWF) Hx Dementia: Yes - Surgical History Additional Surgical History: Left upper arm fistula. - Social History Smoking Status: Never Smoker Substance Use Type: Alcohol - Medications Home Medications: Home Medications Medication Instructions Recorded Confirmed Last Taken Type Epoetin Blayne 10,000 Unit [Procrit] 10,000 unit IV NINO PRN #1 vial 12/02/18 02/05/20 11/20/19 10:00 Rx HYDROcodone/APAP 5-325 [[place] 1 each PO Q6H PRN tablet 11/22/19 02/05/20 Unknown Rx 5-325 mg TAB] polyethylene glycoL 3350 [Miralax 17 gm PO QDAY PRN #30 powd.pack 11/22/19 02/05/20 Unknown Rx 3350] Acetaminophen [Acetaminophen TAB] 650 mg PO Q4H PRN tablet 02/08/20 Unknown Rx Aspirin 325 mg PO QDAY #30 tablet 02/08/20 Unknown Rx AtorvaSTATin [Lipitor] 40 mg PO QHS #30 tablet 02/08/20 Unknown Rx Ferric Citrate (Nf) [Auryxia] 420 mg PO TID #90 tab 02/08/20 Unknown Rx amLODIPine 5 mg PO QDAY #30 tablet 02/08/20 Unknown Rx hydrALAZINE [Apresoline TAB] 50 tab PO TID #180 tablet 02/08/20 Unknown Rx Metoprolol [Lopressor TAB] 50 mg PO BID tablet 07/18/20 Unknown Rx ED Review of Systems ROS: Stated complaint: LEFT ARM INFECTION Other details as noted in HPI Comment: All other systems reviewed and negative Constitutional: denies: chills, fever Eyes: denies: eye pain, vision change ENT: denies: ear pain, throat pain Respiratory: denies: cough, shortness of breath Cardiovascular: denies: chest pain, palpitations Gastrointestinal: denies: abdominal pain, vomiting Musculoskeletal: joint swelling. denies: back pain Skin: other (ulcerations to the LUE around fistula). denies: rash Neurological: denies: headache, weakness Physical Exam - Physical Exam Vital Signs: Vital Signs 09/18/20 12:19 Temperature 98.2 F Pulse Rate 92 H Respiratory 16 Rate Blood Pressure 138/92 [Right] O2 Sat by Pulse 99 Oximetry Physical Exam: GENERAL: The patient is well-developed well-nourished. HENT: Normocephalic. Atraumatic. Patient has moist mucous membranes. EYES: Extraocular motions are intact. NECK: Supple. Trachea is midline. CHEST/LUNGS: Clear to auscultation. There is no respiratory distress noted. HEART/CARDIOVASCULAR: Regular. There is no tachycardia. There is no murmur. ABDOMEN: Abdomen is soft, nontender. Patient has normal bowel sounds. There is no abdominal distention. SKIN: Skin is warm and dry. There are some circular ulcerations and/or skin avulsions to the left upper arm, over the patient's fistula. NEURO: The patient is awake, alert, and cooperative. Normal speech. MUSCULOSKELETAL: There is no tenderness or deformity. There is no limitation range of motion. ED Course Vital Signs 09/18/20 12:19 Temperature 98.2 F Pulse Rate 92 H Respiratory 16 Rate Blood Pressure 138/92 [Right] O2 Sat by Pulse 99 Oximetry - Consultations Consultation #1: 09/18/20 18:[address] Maravilla, from the patient's nephrology service, regarding the patient's presentation from the dialysis clinic. Although Dr. Maravilla has not seen the patient yet, based on my description he is concerned that the ulcerations could be covering too much surface area for them to appropriately perform dialysis. However, after receiving the Doppler results showing concern for inflow stenosis of the fistula, he agrees that the patient should be admitted for further evaluation and they will consult on the patient. The patient does not require emergent dialysis this evening. ED Medical Decision Making - Lab Data Result diagrams: 09/18/20 12:59 09/18/20 12:59 Lab Results 09/18/20 09/18/20 Range/Units 12:59 12:59 WBC 5.3 (4.5-11.0) K/mm3 RBC 3.12 L (3.65-5.03) M/mm3 Hgb 11.4 L (11.8-15.2) gm/dl Hct 33.9 L (35.5-45.6) % MCV 109 H (84-94) fl MCH 36 H (28-32) pg MCHC 34 (32-34) % RDW 22.6 H (13.2-15.2) % Plt Count 174 (140-440) K/mm3 Lymph % (Auto) 27.6 (13.4-35.0) % [place] % (Auto) 11.7 H (0.0-7.3) % Eos % (Auto) 7.0 H (0.0-4.3) % Baso % (Auto) 0.7 (0.0-1.8) % Lymph # (Auto) 1.5 (1.2-5.4) K/mm3 [place] # (Auto) 0.6 (0.0-0.8) K/mm3 Eos # (Auto) 0.4 (0.0-0.4) K/mm3 Baso # (Auto) 0.0 (0.0-0.1) K/mm3 Seg Neutrophils % 53.0 (40.0-70.0) % Seg Neutrophils # 2.8 (1.8-7.7) K/mm3 Sodium 140 (137-145) mmol/L Potassium 4.3 (3.6-5.0) mmol/L Chloride 97.5 L (98-107) mmol/L Carbon Dioxide 32 H (22-30) mmol/L Anion Gap 15 mmol/L BUN 35 H (9-20) mg/dL Creatinine 7.8 H (0.8-1.3) mg/dL Estimated GFR 8 ml/min BUN/Creatinine Ratio 4 % Glucose 80 (75-100) mg/dL Calcium 10.2 (8.4-10.2) mg/dL Phosphorus 2.90 (2.5-4.5) mg/dL - Radiology Data Radiology results: report reviewed LEFT UPPER EXTREMITY VENOUS DOPPLER HISTORY: Upper extremity swelling. FINDINGS: Duplex Doppler evaluation of the venous system of the left upper extremity was performed with spectral waveform analysis. There is appropriate flow and compressibility without visualized thrombus. A left upper extremity AV fistula was patent. Elevated velocities are noted close to the inflow ranging from 4 92- 9 30 mL/min. IMPRESSION: 1. Negative for DVT. 2. Possible inflow stenosis at AV graft. - Medical Decision Making This patient presents to the emergency department from dialysis, without receiving dialysis, secondary to some ulceration seen to the left upper arm over the patient's AV fistula and they did not feel that they can perform dialysis because of this. The patient also presents with some swelling to the distal left upper extremity. On examination the patient does have some areas of skin avulsion versus ulceration over the fistula. Patient was sent for a venous Doppler ultrasound of the left upper extremity which did not show any evidence of DVT, but did show concern for some inflow stenosis of the fistula. Labs have been mostly unremarkable except for the renal insufficiency is consistent with his end-stage renal disease on hemodialysis. Nephrology has been contacted and consulted. The patient has been accepted for admission by the hospitalist, Dr. Fabian. Dr. Fabian says that he will potentially consult the vascular team regarding the Doppler findings of inflow stenosis of the fistula. Critical Care Time: No Critical care attestation.: If time is entered above; I have spent that time in minutes in the direct care of this critically ill patient, excluding procedure time. ED Disposition Clinical Impression: ESRD on hemodialysis Wound of left upper extremity Qualifiers: Encounter type: initial encounter Qualified Code(s): S41.102A - Unspecified open wound of left upper arm, initial encounter AV fistula stenosis Qualifiers: Encounter type: initial encounter Qualified Code(s): T82.858A - Stenosis of other vascular prosthetic devices, implants and grafts, initial encounter Hypertension Qualifiers: Hypertension type: essential hypertension Qualified Code(s): I10 - Essential (primary) hypertension Disposition: OP ADMIT IP TO THIS HOSP Is pt being admited?: Yes Condition: Fair Time of Disposition: 15:09
[2020-09-18 13:41] LABS: Basophils % (Auto) 0.7 % (0.0-1.8); Eosinophils # (Auto) 0.4 K/mm3 (0.0-0.4); Hematocrit 33.9 % (35.5-45.6); Hemoglobin 11.4 gm/dl (11.8-15.2); Lymphocytes # (Auto) 1.5 K/mm3 (1.2-5.4); Lymphocytes % (Auto) 27.6 % (13.4-35.0); Mean Corpuscular HGB Conc 34 % (32-34); Mean Corpuscular Volume 109 fl (84-94); Monocytes # (Auto) 0.6 K/mm3 (0.0-0.8); Monocytes % (Auto) 11.7 % (0.0-7.3); Platelet Count 174 K/mm3 (140-440); Red Blood Count 3.12 M/mm3 (3.65-5.03)
[2020-09-18 13:44] LABS: Calcium 10.2 mg/dL (8.4-10.2); Red Cell Distribution Width 22.6 % (13.2-15.2)
--- NOTE | 2020-09-18 14:29 | Vascular Lab Report ---
LEFT UPPER EXTREMITY VENOUS DOPPLER HISTORY: Upper extremity swelling. FINDINGS: Duplex Doppler evaluation of the venous system of the left upper extremity was performed wi th spectral waveform analysis. There is appropriate flow and compressibility without visualized thrombus. A left upper extremity AV fistula was patent. Elevated velocities are noted close to the inflow ranging from 4 92-9 30 mL/min. IMPRESSION: 1. Negative for DVT. 2. Possible inflow stenosis at AV graft. Signer Name: Binh Carrasco MD Signed: 09/18/2020 2:24 PM Workstation Name: [id number]
[2020-09-18 17:55] LABS: Hepatitis B Surface Antigen Non-Reactive (Negative); Hepatitis C Virus Antibody Non-Reactive (NonReactive)
[2020-09-18] MEDS ORDERED: POLYETHYLENE GLYCOL 3350 17 GM POWDER PO PRN (20:41)
[2020-09-18] MEDS ORDERED: ACETAMINOPHEN 325 MG TAB PO PRN ×2 (20:41)
[2020-09-18] MEDS ORDERED: METOCLOPRAMIDE 10 MG/2 ML INJ IV PRN (20:41)
[2020-09-18] MEDS ORDERED: ONDANSETRON 4 MG/2 ML INJ IV PRN (20:41)
[2020-09-18] MEDS ORDERED: MORPHINE 2 MG/1 ML INJ IV PRN (20:41)
[2020-09-18] MEDS ORDERED: HYDROcodone/ACETAMINOPHEN 5-325 MG TAB PO PRN (20:41)
--- NOTE | 2020-09-18 20:45 | History and Physical Report ---
History of Present Illness Date of examination: 09/18/20 Date of admission: 09/18/20 15:09 Chief complaint: Malfunctioning AV axis on the left arm History of present illness: 70-year-old male sent from the dialysis center for possible infection of the left AV fistula and malfunction. Patient did not receive his dialysis today. Patient is not short of breath. Patient follows with Dr. Simmons. No fever or chills. Pain in the left affected. No exposure to coronavirus. No shortness of breath or orthopnea. No chest pain. - Past Medical History Previous Medical History?: Yes --Hypertension: Yes --Renal Disease: Yes ([facility]) --Dementia: Yes - Surgical History Additional Surgical History: Left upper arm fistula. - Social History Smoking Status: Never Smoker Substance Use Type: Alcohol - Medications Home Medications: Home Medications Medication Instructions Recorded Confirmed Last Taken Type Epoetin Blayne 10,000 Unit [Procrit] 10,000 unit IV NINO PRN #1 vial 12/02/18 02/05/20 11/20/19 10:00 Rx HYDROcodone/APAP 5-325 [[place] 1 each PO Q6H PRN tablet 11/22/19 02/05/20 Unknown Rx 5-325 mg TAB] polyethylene glycoL 3350 [Miralax 17 gm PO QDAY PRN #30 powd.pack 11/22/19 02/05/20 Unknown Rx 3350] Acetaminophen [Acetaminophen TAB] 650 mg PO Q4H PRN tablet 02/08/20 Unknown Rx Aspirin 325 mg PO QDAY #30 tablet 02/08/20 Unknown Rx AtorvaSTATin [Lipitor] 40 mg PO QHS #30 tablet 02/08/20 Unknown Rx Ferric Citrate (Nf) [Auryxia] 420 mg PO TID #90 tab 02/08/20 Unknown Rx amLODIPine 5 mg PO QDAY #30 tablet 02/08/20 Unknown Rx hydrALAZINE [Apresoline TAB] 50 tab PO TID #180 tablet 02/08/20 Unknown Rx Metoprolol [Lopressor TAB] 50 mg PO BID tablet 07/18/20 Unknown Rx Review of Systems ROS: Stated complaint: LEFT ARM INFECTION Other details as noted in HPI Comment: All other systems reviewed and negative Constitutional: denies: chills, fever Eyes: denies: eye pain, vision change ENT: denies: ear pain, throat pain Respiratory: denies: cough, shortness of breath Cardiovascular: denies: chest pain, palpitations Gastrointestinal: denies: abdominal pain, vomiting Musculoskeletal: joint swelling. denies: back pain Skin: other (ulcerations to the LUE around fistula). denies: rash Neurological: denies: headache, weakness Medications and Allergies Allergies Allergy/AdvReac Type Severity Reaction Status Date / Time No Known Allergies Allergy Unverified 11/20/18 16:31 Home Medications Medication Instructions Recorded Confirmed Last Taken Type Epoetin Blayne 10,000 Unit [Procrit] 10,000 unit IV NINO PRN #1 vial 12/02/18 02/05/20 11/20/19 10:00 Rx HYDROcodone/APAP 5-325 [[place] 1 each PO Q6H PRN tablet 11/22/19 02/05/20 Unknown Rx 5-325 mg TAB] polyethylene glycoL 3350 [Miralax 17 gm PO QDAY PRN #30 powd.pack 11/22/19 02/05/20 Unknown Rx 3350] Acetaminophen [Acetaminophen TAB] 650 mg PO Q4H PRN tablet 02/08/20 Unknown Rx Aspirin 325 mg PO QDAY #30 tablet 02/08/20 Unknown Rx AtorvaSTATin [Lipitor] 40 mg PO QHS #30 tablet 02/08/20 Unknown Rx Ferric Citrate (Nf) [Auryxia] 420 mg PO TID #90 tab 02/08/20 Unknown Rx amLODIPine 5 mg PO QDAY #30 tablet 02/08/20 Unknown Rx hydrALAZINE [Apresoline TAB] 50 tab PO TID #180 tablet 02/08/20 Unknown Rx Metoprolol [Lopressor TAB] 50 mg PO BID tablet 07/18/20 Unknown Rx Exam - Constitutional Vitals: Temp Pulse Resp BP Pulse Ox 98.2 F 90 17 155/103 98 09/18/20 12:19 09/18/20 18:31 09/18/20 18:31 09/18/20 18:31 09/18/20 18:01 General appearance: Present: no acute distress, well-nourished - EENT Eyes: Present: PERRL ENT: hearing intact, clear oral mucosa - Neck Neck: Present: supple, normal ROM - Respiratory Respiratory effort: normal Respiratory: bilateral: CTA - Cardiovascular Heart rate: 78 Rhythm: regular Heart Sounds: Present: S1 & S2. Absent: rub, click - Extremities Extremities: no ischemia, pulses intact, pulses symmetrical, No edema, abnormal (Left AV fistula site warm to touch. Thrill present.) Extremity abnormal: other (Left AV fistula warm to touch. Thrill present.) Peripheral Pulses: within normal limits - Abdominal General gastrointestinal: Present: soft, non-tender, non-distended, normal bowel sounds Male genitourinary: Present: normal - Integumentary Integumentary: Present: clear, warm, dry - Musculoskeletal Musculoskeletal: gait normal, strength equal bilaterally - Psychiatric Psychiatric: appropriate mood/affect, intact judgment & insight - Neurologic Neurologic: CNII-XII intact, moves all extremities Results - Labs CBC & Chem 7: 09/18/20 12:59 09/18/20 12:59 Labs: Laboratory Last Values WBC 5.3 K/mm3 (4.5-11.0) 09/18/20 12:59 RBC 3.12 M/mm3 (3.65-5.03) L 09/18/20 12:59 Hgb 11.4 gm/dl (11.8-15.2) L 09/18/20 12:59 Hct 33.9 % (35.5-45.6) L 09/18/20 12:59 MCV 109 fl (84-94) H 09/18/20 12:59 MCH 36 pg (28-32) H 09/18/20 12:59 MCHC 34 % (32-34) 09/18/20 12:59 RDW 22.6 % (13.2-15.2) H 09/18/20 12:59 Plt Count 174 K/mm3 (140-440) 09/18/20 12:59 Lymph % (Auto) 27.6 % (13.4-35.0) 09/18/20 12:59 [place] % (Auto) 11.7 % (0.0-7.3) H 09/18/20 12:59 Eos % (Auto) 7.0 % (0.0-4.3) H 09/18/20 12:59 Baso % (Auto) 0.7 % (0.0-1.8) 09/18/20 12:59 Lymph # (Auto) 1.5 K/mm3 (1.2-5.4) 09/18/20 12:59 [place] # (Auto) 0.6 K/mm3 (0.0-0.8) 09/18/20 12:59 Eos # (Auto) 0.4 K/mm3 (0.0-0.4) 09/18/20 12:59 Baso # (Auto) 0.0 K/mm3 (0.0-0.1) 09/18/20 12:59 Seg Neutrophils % 53.0 % (40.0-70.0) 09/18/20 12:59 Seg Neutrophils # 2.8 K/mm3 (1.8-7.7) 09/18/20 12:59 Sodium 140 mmol/L (137-145) 09/18/20 12:59 Potassium 4.3 mmol/L (3.6-5.0) 09/18/20 12:59 Chloride 97.5 mmol/L (98-107) L 09/18/20 12:59 Carbon Dioxide 32 mmol/L (22-30) H 09/18/20 12:59 Anion Gap 15 mmol/L 09/18/20 12:59 BUN 35 mg/dL (9-20) H 09/18/20 12:59 Creatinine 7.8 mg/dL (0.8-1.3) H 09/18/20 12:59 Estimated GFR 8 ml/min 09/18/20 12:59 BUN/Creatinine Ratio 4 % 09/18/20 12:59 Glucose 80 mg/dL (75-100) 09/18/20 12:59 Calcium 10.2 mg/dL (8.4-10.2) 09/18/20 12:59 Phosphorus 2.90 mg/dL (2.5-4.5) 09/18/20 12:59 Hepatitis A IgM Ab Non-reactive (NonReactive) 09/18/20 17:19 Hep Bs Antigen Non-reactive (Negative) 09/18/20 17:19 Hep B Core IgM Ab Non-reactive (NonReactive) 09/18/20 17:19 Hepatitis C Antibody Non-reactive (NonReactive) 09/18/20 17:19 - Imaging and Cardiology EKG: report reviewed (Sinus rhythm no acute ST-T wave changes) Imaging and Cardiology: left upper extremity venous duplex scan Negative for DVT Possible inflow stenosis at AV graft Assessment and Plan Advance Directives: Yes (Full code) VTE prophylaxis?: Chemical Plan of care discussed with patient/family: Yes - Patient Problems (1) AV fistula stenosis Current Visit: Yes Status: Acute Qualifiers: Encounter type: initial encounter Qualified Code(s): T82.858A - Stenosis of other vascular prosthetic devices, implants and grafts, initial encounter Plan to address problem: Vascular surgery consulted Patient started on IV Unasyn (2) ESRD on hemodialysis Current Visit: Yes Status: Chronic Plan to address problem: Continue hemodialysis as per schedule (3) Hypertension Current Visit: Yes Status: Chronic Qualifiers: Hypertension type: essential hypertension Qualified Code(s): I10 - Essential (primary) hypertension Plan to address problem: Continue antihypertensives (4) Hyperlipidemia Current Visit: Yes Status: Chronic Qualifiers: Hyperlipidemia type: mixed hyperlipidemia Qualified Code(s): E78.2 - Mixed hyperlipidemia Plan to address problem: On statins (5) Anemia Current Visit: Yes Status: Chronic Qualifiers: Anemia type: unspecified type Qualified Code(s): D64.9 - Anemia, unspecified Plan to address problem: Anemia secondary to chronic kidney disease (6) DVT prophylaxis Current Visit: Yes Status: Acute Plan to address problem: On heparin and GI prophylaxis
[2020-09-18] MEDS: METOPROLOL TARTRATE 50 MG TAB PO SCH (21:56)
[2020-09-18] MEDS: FAMOTIDINE 10 MG TAB PO SCH (21:56)
[2020-09-18] MEDS: ASPIRIN 325 MG TAB PO SCH (21:56)
[2020-09-19] MEDS ORDERED: AMPICILLIN/SULBACTA 1.5GM/50ML 1.5 GM/50 ML BAG IV SCH (07:00)
[2020-09-19 07:54] LABS: Basophils % (Auto) 0.9 % (0.0-1.8); Eosinophils # (Auto) 0.5 K/mm3 (0.0-0.4); Eosinophils % (Auto) 9.7 % (0.0-4.3); Hematocrit 37.9 % (35.5-45.6); Hemoglobin 12.7 gm/dl (11.8-15.2); Lymphocytes # (Auto) 1.6 K/mm3 (1.2-5.4); Lymphocytes % (Auto) 30.2 % (13.4-35.0); Mean Corpuscular HGB Conc 33 % (32-34); Mean Corpuscular Volume 110 fl (84-94); Monocytes # (Auto) 0.5 K/mm3 (0.0-0.8); Monocytes % (Auto) 9.6 % (0.0-7.3); Red Blood Count 3.46 M/mm3 (3.65-5.03)
[2020-09-19 07:56] LABS: Red Cell Distribution Width 22.7 % (13.2-15.2)
[2020-09-19] MEDS ORDERED: FERRIC CITRATE 210 MG PO SCH (08:00)
[2020-09-19] MEDS ORDERED: IRON PO SCH (08:00)
[2020-09-19 08:17] LABS: Alanine Aminotransferase 34 units/L (7-56); Albumin 3.5 g/dL (3.9-5); Blood Urea Nitrogen 40 mg/dL (9-20)
[2020-09-19 08:28] LABS: BUN/Creatinine Ratio 5
[2020-09-19] MEDS ORDERED: MIDAZOLAM 2 MG/2 ML INJ ONE (08:30)
[2020-09-19] MEDS ORDERED: fentaNYL 100 MCG/2 ML INJ ONE (08:30)
--- NOTE | 2020-09-19 08:30 | Consultation ---
History of Present Illness - Reason for Consult Consult date: 09/19/20 Malfunctioning AV fistula - History of Present Illness Patient with a history of end-stage renal disease on hemodialysis currently through a left arm brachiocephalic fistula. Sent from dialysis for unknown reason. On examination, patient has some dry skin overlying the middle portion of the fistula with what appears to be areas of excoriation at the cannulation sites. No erythema or exudates. A palpable thrill is present. Patient has no complaints of any pain. He does however have left arm swelling. Past History Past Medical History: dialysis, ESRD Past Surgical History: Other (Left arm brachiocephalic fistula) Medications and Allergies Allergies Allergy/AdvReac Type Severity Reaction Status Date / Time No Known Allergies Allergy Unverified 11/20/18 16:31 Home Medications Medication Instructions Recorded Confirmed Last Taken Type Epoetin Blayne 10,000 Unit [Procrit] 10,000 unit IV NINO PRN #1 vial 12/02/18 02/05/20 11/20/19 10:00 Rx HYDROcodone/APAP 5-325 [[place] 1 each PO Q6H PRN tablet 11/22/19 02/05/20 Unknown Rx 5-325 mg TAB] polyethylene glycoL 3350 [Miralax 17 gm PO QDAY PRN #30 powd.pack 11/22/19 02/05/20 Unknown Rx 3350] Acetaminophen [Acetaminophen TAB] 650 mg PO Q4H PRN tablet 02/08/20 Unknown Rx Aspirin 325 mg PO QDAY #30 tablet 02/08/20 Unknown Rx AtorvaSTATin [Lipitor] 40 mg PO QHS #30 tablet 02/08/20 Unknown Rx Ferric Citrate (Nf) [Auryxia] 420 mg PO TID #90 tab 02/08/20 Unknown Rx amLODIPine 5 mg PO QDAY #30 tablet 02/08/20 Unknown Rx hydrALAZINE [Apresoline TAB] 50 tab PO TID #180 tablet 02/08/20 Unknown Rx Metoprolol [Lopressor TAB] 50 mg PO BID tablet 07/18/20 Unknown Rx Active Meds: Active Medications Acetaminophen (Acetaminophen 325 Mg Tab) 650 mg PO Q4H PRN PRN Reason: Pain MILD(1-3)/Fever >100.5/RUIZ Hydrocodone Bitart/Acetaminophen (Hydrocodone/Acetaminophen 5-325 Mg Tab) 1 each PO Q6H PRN PRN Reason: Pain , Severe (7-10) Amlodipine Besylate (Amlodipine 5 Mg Tab) 5 mg PO QDAY [facility] Aspirin (Aspirin 325 Mg Tab) 325 mg PO QDAY [facility] Last Admin: 09/18/20 21:56 Dose: 325 mg Documented by: Atorvastatin Calcium (Atorvastatin 40 Mg Tab) 40 mg PO QHS [facility] Last Admin: 09/18/20 21:56 Dose: 40 mg Documented by: Famotidine (Famotidine 10 Mg Tab) 10 mg PO BID [facility] Last Admin: 09/18/20 21:56 Dose: 10 mg Documented by: Hydralazine HCl (Hydralazine 25 Mg Tab) 50 mg PO TID [facility] Ampicillin Sodium/Sulbactam Sodium (Unasyn/Ns 3 Gm/100 Ml) 3 gm in 100 mls @ 200 mls/hr IV Q24H [facility] Ampicillin Sodium/Sulbactam Sodium (Unasyn/Ns 3 Gm/100 Ml) 3 gm in 100 mls @ 200 mls/hr IV ONCE ONE Stop: 09/19/20 09:29 Metoclopramide HCl (Metoclopramide 10 Mg/2 Ml Inj) 5 mg IV Q6H PRN PRN Reason: Nausea And Vomiting Metoprolol Tartrate (Metoprolol Tartrate 50 Mg Tab) 50 mg PO BID [facility] Last Admin: 09/18/20 21:56 Dose: 50 mg Documented by: Miscellaneous Medication (Ferric Citrate (Nf)) 420 mg PO TID [facility] Morphine Sulfate (Morphine 2 Mg/1 Ml Inj) 2 mg IV Q4H PRN PRN Reason: Pain, Moderate (4-6) Ondansetron HCl (Ondansetron 4 Mg/2 Ml Inj) 4 mg IV Q8H PRN PRN Reason: Nausea And Vomiting Polyethylene Glycol (Polyethylene Glycol 3350 17 Gm Powder) 17 gm PO QDAY PRN PRN Reason: Constipation Sodium Chloride (Sodium Chloride 0.9% 10 Ml Flush Syringe) 10 ml IV BID [facility] Last Admin: 09/18/20 21:56 Dose: 10 ml Documented by: Sodium Chloride (Sodium Chloride 0.9% 10 Ml Flush Syringe) 10 ml IV PRN PRN PRN Reason: LINE FLUSH Review of Systems ROS unobtainable: due to mental status Exam - Constitutional Vitals: Temp Pulse Resp BP Pulse Ox 97.3 F L 79 18 156/98 95 07/01/21 04:10 09/19/20 04:10 09/19/20 04:10 09/19/20 04:10 09/19/20 04:10 General appearance: Present: no acute distress - EENT Eyes: Present: EOM intact ENT: hearing intact - Neck Neck: Present: supple, normal ROM - Respiratory Respiratory effort: normal - Extremities Extremities: abnormal Extremity abnormal: edema (Left arm extending to hand) - Abdominal General gastrointestinal: Present: deferred Male genitourinary: Present: deferred - Rectal Rectal Exam: deferred - Psychiatric Psychiatric: cooperative Results - Labs CBC & Chem 7: 09/19/20 07:00 09/19/20 07:00 Labs: Abnormal lab results 09/18/20 09/18/20 09/19/20 Range/Units 12:59 12:59 07:00 RBC 3.12 L 3.46 L (3.65-5.03) M/mm3 Hgb 11.4 L (11.8-15.2) gm/dl Hct 33.9 L (35.5-45.6) % MCV 109 H 110 H (84-94) fl MCH 36 H 37 H (28-32) pg RDW 22.6 H 22.7 H (13.2-15.2) % [place] % (Auto) 11.7 H 9.6 H (0.0-7.3) % Eos % (Auto) 7.0 H 9.7 H (0.0-4.3) % Eos # (Auto) 0.5 H (0.0-0.4) K/mm3 Chloride 97.5 L (98-107) mmol/L Carbon Dioxide 32 H (22-30) mmol/L BUN 35 H (9-20) mg/dL Creatinine 7.8 H (0.8-1.3) mg/dL Glucose (75-100) mg/dL AST (5-40) units/L Albumin (3.9-5) g/dL 09/19/20 Range/Units 07:00 RBC (3.65-5.03) M/mm3 Hgb (11.8-15.2) gm/dl Hct (35.5-45.6) % MCV (84-94) fl MCH (28-32) pg RDW (13.2-15.2) % [place] % (Auto) (0.0-7.3) % Eos % (Auto) (0.0-4.3) % Eos # (Auto) (0.0-0.4) K/mm3 Chloride (98-107) mmol/L Carbon Dioxide (22-30) mmol/L BUN 40 H (9-20) mg/dL Creatinine (0.8-1.3) mg/dL Glucose 65 L (75-100) mg/dL AST 46 H (5-40) units/L Albumin 3.5 L (3.9-5) g/dL - Imaging and Cardiology Venous US: report reviewed, image reviewed Assessment and Plan Patient will be brought down to the Pharmacy Technician Assistant for a fistulogram. On his ult rasound there is a suggestion of inflow stenosis however, given his arm swelling would suspect more outflow stenosis. The patient's area of excoriation overlying the access site may require a cannulation at other sites. No overt signs of infection however.
[2020-09-19] MEDS ORDERED: HEPARIN 10,000 UNITS/10 ML VIAL ONE (08:31)
[2020-09-19] MEDS ORDERED: LIDOCAINE (2%) 20 MG/1 ML VIAL 20 ML MDV INFILTRATI ONE (08:31)
[2020-09-19] MEDS ORDERED: HEPARIN/NS 5000 UNIT/500ML 500 ML IR ONE (08:31)
[2020-09-19] MEDS ORDERED: SODIUM CHLORIDE 0.9% 100 ML IV PRN (08:48)
--- NOTE | 2020-09-19 08:55 | Consultation ---
History of Present Illness - Reason for Consult Consult date: 09/19/20 end stage renal disease Requesting physician: RDE MEJIA - History of Present Illness 70-year-old male who is known to me with history of hypertension, complicated by end-stage renal disease on hemodialysis on a Wednesday, Wednesday and Wednesday schedule. Patient has recently been diagnosed with dementia. He lives at an assisted living facility. Patient was taken to dialysis yesterday and they were unable to stick his AV fistula apparently because of rash over the site. Patient however had an ultrasound in ER which suggested inflow stenosis and so he was admitted for further management. He also has swelling of the left arm. He did not receive dialysis yesterday. Patient states he is here because "I am sick". He is really not able to give much of a history due to memory impairment. He has been seen by interventional radiologist this morning and is scheduled for fistulogram Past History Past Medical History: anemia, diabetes, dialysis, ESRD, hypertension Past Surgical History: Other (Left arm brachiocephalic fistula) Social history: other (Staying at an assisted living facility). denies: smoking, alcohol abuse, prescription drug abuse Family history: hypertension Medications and Allergies Allergies Allergy/AdvReac Type Severity Reaction Status Date / Time No Known Allergies Allergy Unverified 11/20/18 16:31 Home Medications Medication Instructions Recorded Confirmed Last Taken Type Epoetin Blayne 10,000 Unit [Procrit] 10,000 unit IV NINO PRN #1 vial 12/02/18 02/05/20 11/20/19 10:00 Rx HYDROcodone/APAP 5-325 [[place] 1 each PO Q6H PRN tablet 11/22/19 02/05/20 Unknown Rx 5-325 mg TAB] polyethylene glycoL 3350 [Miralax 17 gm PO QDAY PRN #30 powd.pack 11/22/19 02/05/20 Unknown Rx 3350] Acetaminophen [Acetaminophen TAB] 650 mg PO Q4H PRN tablet 02/08/20 Unknown Rx Aspirin 325 mg PO QDAY #30 tablet 02/08/20 Unknown Rx AtorvaSTATin [Lipitor] 40 mg PO QHS #30 tablet 02/08/20 Unknown Rx Ferric Citrate (Nf) [Auryxia] 420 mg PO TID #90 tab 02/08/20 Unknown Rx amLODIPine 5 mg PO QDAY #30 tablet 02/08/20 Unknown Rx hydrALAZINE [Apresoline TAB] 50 tab PO TID #180 tablet 02/08/20 Unknown Rx Metoprolol [Lopressor TAB] 50 mg PO BID tablet 07/18/20 Unknown Rx Active Meds: Active Medications Acetaminophen (Acetaminophen 325 Mg Tab) 650 mg PO Q4H PRN PRN Reason: Pain MILD(1-3)/Fever >100.5/RUIZ Hydrocodone Bitart/Acetaminophen (Hydrocodone/Acetaminophen 5-325 Mg Tab) 1 each PO Q6H PRN PRN Reason: Pain , Severe (7-10) Amlodipine Besylate (Amlodipine 5 Mg Tab) 5 mg PO QDAY [facility] Aspirin (Aspirin 325 Mg Tab) 325 mg PO QDAY [facility] Last Admin: 09/18/20 21:56 Dose: 325 mg Documented by: Atorvastatin Calcium (Atorvastatin 40 Mg Tab) 40 mg PO QHS [facility] Last Admin: 09/18/20 21:56 Dose: 40 mg Documented by: Famotidine (Famotidine 10 Mg Tab) 10 mg PO BID [facility] Last Admin: 09/18/20 21:56 Dose: 10 mg Documented by: Hydralazine HCl (Hydralazine 25 Mg Tab) 50 mg PO TID [facility] Ampicillin Sodium/Sulbactam Sodium (Unasyn/Ns 3 Gm/100 Ml) 3 gm in 100 mls @ 200 mls/hr IV Q24H [facility] Ampicillin Sodium/Sulbactam Sodium (Unasyn/Ns 3 Gm/100 Ml) 3 gm in 100 mls @ 200 mls/hr IV ONCE ONE Stop: 09/19/20 09:29 Sodium Chloride (Nacl 0.9%) 100 mls @ 999 mls/hr IV NINO PRN PRN Reason: Hypotension Metoclopramide HCl (Metoclopramide 10 Mg/2 Ml Inj) 5 mg IV Q6H PRN PRN Reason: Nausea And Vomiting Metoprolol Tartrate (Metoprolol Tartrate 50 Mg Tab) 50 mg PO BID [facility] Last Admin: 09/18/20 21:56 Dose: 50 mg Documented by: Miscellaneous Medication (Ferric Citrate (Nf)) 420 mg PO TID [facility] Morphine Sulfate (Morphine 2 Mg/1 Ml Inj) 2 mg IV Q4H PRN PRN Reason: Pain, Moderate (4-6) Ondansetron HCl (Ondansetron 4 Mg/2 Ml Inj) 4 mg IV Q8H PRN PRN Reason: Nausea And Vomiting Polyethylene Glycol (Polyethylene Glycol 3350 17 Gm Powder) 17 gm PO QDAY PRN PRN Reason: Constipation Sodium Chloride (Sodium Chloride 0.9% 10 Ml Flush Syringe) 10 ml IV BID [facility] Last Admin: 09/18/20 21:56 Dose: 10 ml Documented by: Sodium Chloride (Sodium Chloride 0.9% 10 Ml Flush Syringe) 10 ml IV PRN PRN PRN Reason: LINE FLUSH Review of Systems ROS unobtainable: due to mental status Exam - Vital Signs Vital signs: Vital Signs Temp Pulse Resp BP Pulse Ox 98.2 F 92 H 16 138/92 99 09/18/20 12:19 09/18/20 12:19 09/18/20 12:19 09/18/20 12:19 09/18/20 12:19 - Physical Exam Narrative exam: Middle-aged -Macedonian male lying in bed in no acute distress HEENT: NCAT, bilateral corneal opacities with arcus senilis Neck: Supple, no venous distention CVS: S1S2 RRR with no murmur, rub or gallop Chest: Clear to auscultation Abdomen: Protuberant, soft, nontender, no organomegaly, bowel sounds are present Extremities: No edema, mild swelling of his left upper extremity, left upper extremity AV fistula with overlying dry skin with lichenification and thickening of the skin with excoriations around previous puncture sites Neuro: Awake, alert no focal deficits Results - Lab Results 09/19/20 07:00 09/19/20 07:00 Most recent lab results Calcium 10.0 mg/dL (8.4-10.2) 09/19/20 07:00 Phosphorus 2.90 mg/dL (2.5-4.5) 09/18/20 12:59 Assessment and Plan - Patient Problems (1) AV fistula stenosis Current Visit: Yes Status: Acute Qualifiers: Encounter type: initial encounter Qualified Code(s): T82.858A - Stenosis of other vascular prosthetic devices, implants and grafts, initial encounter Plan to address problem: Patient is scheduled for a fistulogram this morning with possible angioplasty by interventional radiologist. (2) Wound of left upper extremity Current Visit: Yes Status: Acute Qualifiers: Encounter type: initial encounter Qualified Code(s): S41.102A - Unspecified open wound of left upper arm, initial encounter Plan to address problem: Dermatitis over the left upper extremity AV fistula with excoriations. Will discuss with interventional radiologist if it is okay to stick fistula with the overlying rash or to treat and rest the area which unfortunately would mean temporarily using a permacath. (3) ESRD on hemodialysis Current Visit: Yes Status: Chronic Plan to address problem: End-stage renal disease on hemodialysis on a Wednesday, Wednesday and Wednesday schedule. Did not receive dialysis yesterday. Electrolytes are stable. We will dialyze today after fistulogram. (4) Anemia in chronic kidney disease (CKD) Current Visit: No Status: Acute Plan to address problem: Hemoglobin at goal. Continue erythropoiesis stimulating agent per protocol at the outpatient dialysis clinic (5) Hypertensive chronic kidney disease with stage 5 chronic kidney disease or end stage renal disease Current Visit: No Status: Chronic Plan to address problem: Follow-up blood pressure on current medications (6) Dementia Current Visit: Yes Status: Acute Plan to address problem: Continue treatment (7) Type 2 diabetes mellitus with diabetic nephropathy Current Visit: No Status: Chronic Plan to address problem: Follow-up blood sugar on no medications. Blood sugar management by primary attending
[2020-09-19] MEDS ORDERED: SODIUM CHLORIDE 0.9% 500 ML 500 ML ONE (08:58)
[2020-09-19] MEDS ORDERED: AMPICILLIN/SULBACTA 3GM/100ML 3 GM/100 ML BAG IV ONE (09:00)
--- NOTE | 2020-09-19 09:34 | Operative Report ---
Operative Report Operative Report: Exam: Left upper extremity fistulogram with venoplasty Clinical indication: Patient with a history of a left arm brachiocephalic fistula with left arm swelling and areas of excoriation at the prior access sites. Date: 09/19/2020 Procedure: Following an explanation of the risks, benefits and alternatives; belgica baxter informed consent was obtained. The patient was brought to the angiographic suite and placed in supine position on the examination table. The patient had had a previous ultrasound which suggested some inflow stenosis. Ultrasound evaluation was also performed in the room. This demonstrates that the fistula maintains a distance of greater than 3 mm from the skin surface from the arterial anastomosis to the axilla. Some subcutaneous edema is present which may represent infiltration. The fistula has a easily palpable thrill. The patient's left upper arm was prepped and draped in the usual sterile fashion. 1% lidocaine was used for anesthesia. The fistula was cannulated just distal to the arterial anastomosis using a 7 cm 21-gauge needle. A 0.018 guidewire was advanced centrally. The needle was removed and a 7 [place] sheath and a microsheath placed over the guidewire and advanced into the fistula. The micro sheath and trocar were removed as well as the 018 guidewire. Contrast was injected through the sheath and imaging obtained at multiple locations throughout the peripheral and central veins. The cephalic arch demonstrates approximately 50% stenosis with collateral formation. The remaining imaged vessels appear to be widely patent. There is mild dilatation of the body of the fistula at the prior access sites. Venoplasty of the cephalic arch was then performed using an 8 mm x 40 mm balloon insufflated to nominal atmospheres of multiple locations. The balloon was then withdrawn proximally and attempts were made to evaluate the arterial inflow however, the inflow was so brisk that adequate imaging could not be obtained. There are several areas of small branch vessels that arise off the fistula however they do not appear to be significantly decreasing the fistula volume. At this point, the catheters, guidewires and sheaths were removed and hemostasis achieved using 3-0 Vicryl suture and manual compression. Dermabond and a sterile dressing were applied. The patient tolerated the procedure well. There were no immediate postprocedure complications. Only a minimal amount of sedation was utilized. Continuous cardiopulmonary monitoring was utilized. Impression: 1) Left upper extremity fistulogram demonstrating 50% stenosis in the cephalic arch. Ultrasound-guided evaluation of the fistula demonstrated that the fistula maintains a depth of 3 mm from the skin surface throughout the fistula from the arterial anastomosis to the axilla. 2) Venoplasty of the cephalic arch as described. 3) The patient has a significant amount of accessible fistula below the areas of prior access which have resulted in some skin excoriation. Would recommend cannulation below prior cannulation sites.
[2020-09-19 10:27] LABS: Platelet Count 159 K/mm3 (140-440)
--- NOTE | 2020-09-19 11:51 | Progress Note ---
Subjective Date of service: 09/19/20 Interval history: History of present illness: 70-year-old male sent from the dialysis center for possible infection of the left AV fistula and malfunction. Patient did not receive his dialysis today. Patient is not short of breath. Patient follows with Dr. Simmons. No fever or chills. Pain in the left affected. No exposure to coronavirus. No shortness of breath or orthopnea. No chest pain. 09/19 patient is awake and alert, poor historian, poor memory, no specific complaints, nephrology and vascular surgery notes reviewed. Lab results reviewed Assessment and plan: AV Fistula stenosis Vascular surgery note and operative findings reviewed End-stage renal disease Nephrology note reviewed Likely for hemodialysis today Dermatitis over the fistula site Observation Dementia-not on any medications Follow-up with PCP Hypertension Fair Continue amlodipine, hydralazine and beta-pam Anemia of chronic kidney disease No overt bleed Monitor H&H Hyperkalemia Mild Serum potassium increased to 5.2 this morning Nephrology following On examination Middle-aged -Maldivian male lying in bed in no acute distress HEENT: NCAT, bilateral corneal opacities with arcus senilis Neck: Supple, no venous distention CVS: S1S2 RRR with no murmur, rub or gallop Chest: Clear to auscultation Abdomen: Protuberant, soft, nontender Extremities: No edema, mild swelling of left upper extremity, left upper extremity AV fistula with overlying dry skin with lichenification and thickening of the skin with excoriations around previous puncture sites Neuro: Awake, alert no focal deficits Objective - Constitutional Vitals: Vital Signs - 12hr 09/19/20 04:10 Temperature 97.3 F L Pulse Rate 79 Respiratory 18 Rate Blood Pressure 156/98 O2 Sat by Pulse 95 Oximetry - Labs CBC & Chem 7: 09/19/20 07:00 09/19/20 07:00 Labs: Abnormal lab results 09/18/20 09/18/20 09/19/20 Range/Units 12:59 12:59 07:00 RBC 3.12 L 3.46 L (3.65-5.03) M/mm3 Hgb 11.4 L (11.8-15.2) gm/dl Hct 33.9 L (35.5-45.6) % MCV 109 H 110 H (84-94) fl MCH 36 H 37 H (28-32) pg RDW 22.6 H 22.7 H (13.2-15.2) % [place] % (Auto) 11.7 H 9.6 H (0.0-7.3) % Eos % (Auto) 7.0 H 9.7 H (0.0-4.3) % Eos # (Auto) 0.5 H (0.0-0.4) K/mm3 Potassium (3.6-5.0) mmol/L Chloride 97.5 L (98-107) mmol/L Carbon Dioxide 32 H (22-30) mmol/L BUN 35 H (9-20) mg/dL Creatinine 7.8 H (0.8-1.3) mg/dL Glucose (75-100) mg/dL AST (5-40) units/L Albumin (3.9-5) g/dL 09/19/20 Range/Units 07:00 RBC (3.65-5.03) M/mm3 Hgb (11.8-15.2) gm/dl Hct (35.5-45.6) % MCV (84-94) fl MCH (28-32) pg RDW (13.2-15.2) % [place] % (Auto) (0.0-7.3) % Eos % (Auto) (0.0-4.3) % Eos # (Auto) (0.0-0.4) K/mm3 Potassium 5.2 H D (3.6-5.0) mmol/L Chloride (98-107) mmol/L Carbon Dioxide (22-30) mmol/L BUN 40 H (9-20) mg/dL Creatinine 8.6 H (0.8-1.3) mg/dL Glucose 65 L (75-100) mg/dL AST 46 H (5-40) units/L Albumin 3.5 L (3.9-5) g/dL
[2020-09-19] MEDS: hydrALAZINE 25 MG TAB PO SCH ×3 (12:26→22:04)
[2020-09-19] MEDS: FAMOTIDINE 10 MG TAB PO SCH ×2 (12:29→22:05)
[2020-09-19] MEDS: METOPROLOL TARTRATE 50 MG TAB PO SCH ×2 (12:29→22:05)
[2020-09-19] MEDS: ASPIRIN 325 MG TAB PO SCH (12:29)
[2020-09-19] MEDS: amLODIPine 5 MG TAB PO SCH (16:05)
--- NOTE | 2020-09-20 08:28 | Progress Note ---
Assessment and Plan - Patient Problems (1) AV fistula stenosis Current Visit: Yes Status: Acute Qualifiers: Encounter type: initial encounter Qualified Code(s): T82.858A - Stenosis of other vascular prosthetic devices, implants and grafts, initial encounter Plan to address problem: Patient is status post fistulogram with angioplasty by interventional radiologist. Tolerated dialysis yesterday with no complications. Okay to discharge from renal standpoint (2) Wound of left upper extremity Current Visit: Yes Status: Acute Qualifiers: Encounter type: initial encounter Qualified Code(s): S41.102A - Unspecified open wound of left upper arm, initial encounter Plan to address problem: Dermatitis over the left upper extremity AV fistula with excoriations. I discussed with interventional radiology yesterday. We will stick below the current sites. I will discuss with the dialysis clinic to use an alternative cleaning agent over the AV fistula and also change the type of dressing being used as it appears there is a contact dermatitis. (3) ESRD on hemodialysis Current Visit: Yes Status: Chronic Plan to address problem: End-stage renal disease on hemodialysis on a Wednesday, Wednesday and Wednesday schedule. Patient was dialyzed yesterday with no complications. Will arrange dialysis tomorrow as an outpatient if patient is discharged today. (4) Anemia in chronic kidney disease (CKD) Current Visit: No Status: Acute Plan to address problem: Hemoglobin at goal. Continue erythropoiesis stimulating agent per protocol at the outpatient dialysis clinic (5) Hypertensive chronic kidney disease with stage 5 chronic kidney disease or end stage renal disease Current Visit: No Status: Chronic Plan to address problem: Follow-up blood pressure on current medications (6) Dementia Current Visit: Yes Status: Acute Plan to address problem: Continue treatment (7) Type 2 diabetes mellitus with diabetic nephropathy Current Visit: No Status: Chronic Plan to address problem: Follow-up blood sugar on no medications. Blood sugar management by primary attending Subjective Date of service: 09/20/20 Principal diagnosis: End-stage renal disease with AV fistula stenosis Interval history: Patient seen lying in bed. He has no complaints. He is confused Objective - Exam Narrative Exam: Middle-aged -Martiniquais male lying in bed in no acute distress HEENT: NCAT, bilateral corneal opacities with arcus senilis Neck: Supple, no venous distention CVS: S1S2 RRR with no murmur, rub or gallop Chest: Clear to auscultation Abdomen: Protuberant, soft, nontender, no organomegaly, bowel sounds are present Extremities: No edema, mild swelling of his left upper extremity, left upper extremity AV fistula with overlying dry skin with lichenification and thickening of the skin with excoriations around previous puncture sites Neuro: Awake, alert no focal deficits - Vital Signs Vital signs: Vital Signs - 12hr 09/19/20 09/20/20 21:50 03:47 Temperature 97.7 F 98.4 F Pulse Rate 106 H 87 Respiratory 18 18 Rate Blood Pressure 137/89 148/96 O2 Sat by Pulse 97 95 Oximetry - Lab 09/19/20 07:00 09/19/20 07:00 Most recent lab results Calcium 10.0 mg/dL (8.4-10.2) 09/19/20 07:00 Phosphorus 2.90 mg/dL (2.5-4.5) 09/18/20 12:59 Medications & Allergies - Medications Allergies/Adverse Reactions: Allergies No Known Allergies Allergy (Unverified 11/20/18 16:31) Home Medications: Home Medications Medication Instructions Recorded Confirmed Last Taken Type Epoetin Blayne 10,000 Unit [Procrit] 10,000 unit IV NINO PRN #1 vial 12/02/18 02/05/20 11/20/19 10:00 Rx HYDROcodone/APAP 5-325 [[place] 1 each PO Q6H PRN tablet 11/22/19 02/05/20 Unknown Rx 5-325 mg TAB] polyethylene glycoL 3350 [Miralax 17 gm PO QDAY PRN #30 powd.pack 11/22/19 02/05/20 Unknown Rx 3350] Acetaminophen [Acetaminophen TAB] 650 mg PO Q4H PRN tablet 02/08/20 Unknown Rx Aspirin 325 mg PO QDAY #30 tablet 02/08/20 Unknown Rx AtorvaSTATin [Lipitor] 40 mg PO QHS #30 tablet 02/08/20 Unknown Rx Ferric Citrate (Nf) [Auryxia] 420 mg PO TID #90 tab 02/08/20 Unknown Rx amLODIPine 5 mg PO QDAY #30 tablet 02/08/20 Unknown Rx hydrALAZINE [Apresoline TAB] 50 tab PO TID #180 tablet 02/08/20 Unknown Rx Metoprolol [Lopressor TAB] 50 mg PO BID tablet 07/18/20 Unknown Rx Active Medications: Generic Name Dose Route Start Last Admin Trade Name Freq PRN Reason Stop Dose Admin Acetaminophen 650 mg 09/18/20 20:41 Acetaminophen 325 Mg Tab PO Q4H PRN Pain MILD(1-3)/Fever >100.5/RUIZ Hydrocodone Bitart/Acetaminophen 1 each 09/18/20 20:41 Hydrocodone/Acetaminophen 5-325 Mg Tab PO Q6H PRN Pain , Severe (7-10) Amlodipine Besylate 5 mg 09/19/20 10:00 09/19/20 16:05 Amlodipine 5 Mg Tab PO 5 mg QDAY [facility] Administration Aspirin 325 mg 09/18/20 21:00 09/19/20 12:29 Aspirin 325 Mg Tab PO Not Given QDAY [facility] Atorvastatin Calcium 40 mg 09/18/20 22:00 09/19/20 22:04 Atorvastatin 40 Mg Tab PO 40 mg QHS [facility] Administration Famotidine 10 mg 09/18/20 22:00 09/19/20 22:05 Famotidine 10 Mg Tab PO 10 mg BID [facility] Administration Hydralazine HCl 50 mg 09/19/20 08:00 09/19/20 22:04 Hydralazine 25 Mg Tab PO 50 mg TID [facility] Administration Sodium Chloride 100 mls @ 999 mls/hr 09/19/20 08:48 Nacl 0.9% IV NINO PRN Hypotension Metoclopramide HCl 5 mg 09/18/20 20:41 Metoclopramide 10 Mg/2 Ml Inj IV Q6H PRN Nausea And Vomiting Metoprolol Tartrate 50 mg 09/18/20 22:00 09/19/20 22:05 Metoprolol Tartrate 50 Mg Tab PO 50 mg BID [facility] Administration Miscellaneous Medication 420 mg 09/19/20 08:00 Ferric Citrate (Nf) PO TID [facility] Morphine Sulfate 2 mg 09/18/20 20:41 Morphine 2 Mg/1 Ml Inj IV Q4H PRN Pain, Moderate (4-6) Ondansetron HCl 4 mg 09/18/20 20:41 Ondansetron 4 Mg/2 Ml Inj IV Q8H PRN Nausea And Vomiting Polyethylene Glycol 17 gm 09/18/20 20:41 Polyethylene Glycol 3350 17 Gm Powder PO QDAY PRN Constipation Sodium Chloride 10 ml 09/18/20 22:00 09/19/20 22:05 Sodium Chloride 0.9% 10 Ml Flush Syringe IV 10 ml BID [facility] Administration Sodium Chloride 10 ml 09/18/20 20:41 Sodium Chloride 0.9% 10 Ml Flush Syringe IV PRN PRN LINE FLUSH
[2020-09-20] MEDS: METOPROLOL TARTRATE 50 MG TAB PO SCH (09:11)
[2020-09-20] MEDS: FAMOTIDINE 10 MG TAB PO SCH (09:11)
[2020-09-20] MEDS: hydrALAZINE 25 MG TAB PO SCH ×2 (09:11→13:37)
[2020-09-20] MEDS: ASPIRIN 325 MG TAB PO SCH (09:11)
[2020-09-20] MEDS: amLODIPine 5 MG TAB PO SCH (09:11)
--- NOTE | 2020-09-20 10:55 | Discharge Summary ---
Providers - Providers Date of Admission: 09/18/20 15:09 Date of discharge: 09/20/20 Attending physician: GEREMIAS MCKINNON 09/18/20 14:13 Consult to Physician [CONS] Routine Comment: Consulting Provider: ZACH FORMAN Physician Instructions: Reason For Exam: ESRD needing dialysis 09/18/20 20:41 Consult to Physician [CONS] Routine Comment: Consulting Provider: REJI NEVES Physician Instructions: Reason For Exam: Malfunctioning AV fistula Primary care physician: [facility] Hospitalization Reason for admission: AV fistula stenosis Condition: Fair Pertinent studies: Fistulogram with angioplasty Hospital course: 70-year-old male sent from the dialysis center for possible infection of the left AV fistula and malfunction. Patient did not receive his dialysis today. Patient is not short of breath. Patient follows with Dr. Simmons. No fever or chills. Pain in the left affected. No exposure to coronavirus. No shortness of breath or orthopnea. No chest pain. 09/19 patient is awake and alert, poor historian, poor memory, no specific complaints, nephrology and vascular surgery notes reviewed. Lab results reviewed Assessment and plan: AV Fistula stenosis Vascular surgery note and operative findings reviewed DVT ruled out with venous Doppler End-stage renal disease Nephrology note reviewed Patient underwent hemodialysis yesterday and patient has been cleared by nephrology for discharge Follow-up with the outpatient hemodialysis center Dermatitis over the fistula site/left arm Dementia-not on any medications Follow-up with PCP/neurology Hypertension Fair Continue amlodipine, hydralazine and beta-pam Anemia of chronic kidney disease No overt bleed Hyperkalemia Mild Nephrology consulted On examination Middle-aged -Algerian male lying in bed in no acute distress/confused. HEENT: NCAT, bilateral corneal opacities with arcus senilis Neck: Supple, no venous distention CVS: S1S2 RRR with no murmur, rub or gallop Chest: Clear to auscultation Abdomen: soft, nontender Extremities: No edema, mild swelling of left upper extremity, left upper extremity AV fistula with overlying dry skin with lichenification and thickening of the skin with excoriations around previous puncture sites. Will prescribe triamcinolone cream for topical use Neuro: Awake, alert no focal deficits, poor memory Objective Disposition: [id number] ANOTHER TYPE [facility] Final Discharge Diagnosis (Prints w/discharge instructions): AV fistula stenosis Time spent for discharge: 34 min Core Measure Documentation - Palliative Care Palliative Care/ Comfort Measures: Not Applicable - Core Measures Any of the following diagnoses?: none Exam - Constitutional Vitals: Temp Pulse Resp BP Pulse Ox 98.4 F 87 18 148/96 95 09/20/20 03:47 09/20/20 03:47 09/20/20 03:47 09/20/20 03:47 09/20/20 03:47 Plan Activity: advance as tolerated, fall precautions Weight Bearing Status: Weight Bear as Tolerated Diet: regular, low fat, low cholesterol, low salt Special Instructions: restrict fluid intake to (1500 ml/day) Follow up with: PRIMARY MD SHEILA [Primary Care Provider] - 7 Days ZACH FORMAN MD [Staff Physician] - 7 Days Prescriptions: amLODIPine 5 mg PO QDAY #30 tablet hydrALAZINE [Apresoline TAB] 50 tab PO TID #180 tablet Aspirin 325 mg PO QDAY #30 tablet Ferric Citrate (Nf) [Auryxia] 420 mg PO TID #90 tab AtorvaSTATin [Lipitor] 40 mg PO QHS #30 tablet Metoprolol [Lopressor TAB] 50 mg PO BID #60 tablet Famotidine [Pepcid] 10 mg PO BID #60 tablet
[2020-09-20 13:08] VITALS: BP 134/75
[2020-09-20] MEDS ORDERED: AMPICILLIN/SULBACTA 3GM/100ML 3 GM/100 ML BAG IV SCH (18:00)
== END 2020-09-20 16:31 | disposition other institution (70) ==
LOC: ED 12:09 → 3A 15:09
PROVIDERS: ADMIT Internal Medicine; ATTEND Internal Medicine
DX: T82.858A Stenosis of other vascular prosthetic devices, implants and grafts, initial encounter (principal); S41.102A Unspecified open wound of left upper arm, initial encounter; I12.0 Hypertensive chronic kidney disease with stage 5 chronic kidney disease or end stage renal disease; N18.6 End stage renal disease; E78.2 Mixed hyperlipidemia; E87.5 Hyperkalemia; F03.90 Unspecified dementia, unspecified severity, without behavioral disturbance, psychotic disturbance, mood disturbance, and anxiety; Z99.2 Dependence on renal dialysis; Z79.82 Long term (current) use of aspirin
CPT/HCPCS: 36415; 36902; 80048; 80053; 80074; 83036; 84100; 85025; 93971; 99284; A9270; C1725; C1769; C1894; G0257; G0378; J1644; J2250; J3010; J7040; Q9967

== ENCOUNTER 2020-09-28 19:06 | Inpatient (IN) | payer MEDICARE ==
--- NOTE | 2020-09-28 19:22 | Emergency Department Report ---
ED Altered Mental Status HPI - General Stated Complaint: STROKE PUI?: No Time Seen by Provider: 09/28/20 19:10 Source: patient, EMS Mode of arrival: Stretcher Limitations: Altered Mental Status - History of Present Illness Initial Comments: Chief complaint: Altered mental status, shortness of breath HPI: This is a 70-year-old male with history of end-stage renal disease on hemodialysis Wednesday, CVA, encephalopathy, anemia chronic dise ase, diabetes mellitus, hypertension, aortic stenosis, diastolic heart failure, dyslipidemia, dementia, atrial fibrillation/flutter who presents with altered mental status, vomiting and shortness of breath. Patient was last known well 10 AM yesterday. Family member noticed that he was confused. He was unable to be transported to dialysis due to vomiting. Patient is altered. Only answers yes/no questions. MD Complaint: altered mental status, confusion, decreased responsiveness -: Gradual, days(s) (1 day on yesterday) Severity: severe Consistency of Symptoms: constant Context: diabetes, other (end stage renal disease, history of CVA) - Related Data Previous Rx's Medication Instructions Recorded Last Taken Type Epoetin Blayne 10,000 Unit [Procrit] 10,000 unit IV NINO PRN #1 vial 12/02/18 11/20/19 10:00 Rx HYDROcodone/APAP 5-325 [[place] 1 each PO Q6H PRN tablet 11/22/19 Unknown Rx 5-325 mg TAB] polyethylene glycoL 3350 [Miralax 17 gm PO QDAY PRN #30 powd.pack 11/22/19 Unknown Rx 3350] Acetaminophen [Acetaminophen TAB] 650 mg PO Q4H PRN tablet 02/08/20 Unknown Rx Aspirin 325 mg PO QDAY #30 tablet 09/20/20 Unknown Rx AtorvaSTATin [Lipitor] 40 mg PO QHS #30 tablet 09/20/20 Unknown Rx Famotidine [Pepcid] 10 mg PO BID #60 tablet 09/20/20 Unknown Rx Ferric Citrate (Nf) [Auryxia] 420 mg PO TID #90 tab 09/20/20 Unknown Rx Metoprolol [Lopressor TAB] 50 mg PO BID #60 tablet 09/20/20 Unknown Rx amLODIPine 5 mg PO QDAY #30 tablet 09/20/20 Unknown Rx hydrALAZINE [Apresoline TAB] 50 tab PO TID #180 tablet 09/20/20 Unknown Rx Allergies Allergy/AdvReac Type Severity Reaction Status Date / Time No Known Allergies Allergy Verified 09/28/20 20:06 ED Review of Systems ROS: Stated complaint: STROKE Other details as noted in HPI Comment: Unobtainable due to pts medical conditions (altered, shortness of breath, critically ill) ED Past Medical Hx - Past Medical History Previous Medical History?: Yes Hx Hypertension: Yes Hx Renal Disease: Yes (MWF) Hx Dementia: Yes - Surgical History Past Surgical History?: Yes Additional Surgical History: Left upper arm fistula. - Social History Smoking Status: Never Smoker Substance Use Type: Alcohol - Medications Home Medications: Home Medications Medication Instructions Recorded Confirmed Last Taken Type Epoetin Blayne 10,000 Unit [Procrit] 10,000 unit IV NINO PRN #1 vial 12/02/18 02/05/20 11/20/19 10:00 Rx HYDROcodone/APAP 5-325 [[place] 1 each PO Q6H PRN tablet 11/22/19 02/05/20 Unknown Rx 5-325 mg TAB] polyethylene glycoL 3350 [Miralax 17 gm PO QDAY PRN #30 powd.pack 11/22/19 02/05/20 Unknown Rx 3350] Acetaminophen [Acetaminophen TAB] 650 mg PO Q4H PRN tablet 02/08/20 Unknown Rx Aspirin 325 mg PO QDAY #30 tablet 09/20/20 Unknown Rx AtorvaSTATin [Lipitor] 40 mg PO QHS #30 tablet 09/20/20 Unknown Rx Famotidine [Pepcid] 10 mg PO BID #60 tablet 09/20/20 Unknown Rx Ferric Citrate (Nf) [Auryxia] 420 mg PO TID #90 tab 09/20/20 Unknown Rx Metoprolol [Lopressor TAB] 50 mg PO BID #60 tablet 09/20/20 Unknown Rx amLODIPine 5 mg PO QDAY #30 tablet 09/20/20 Unknown Rx hydrALAZINE [Apresoline TAB] 50 tab PO TID #180 tablet 09/20/20 Unknown Rx ED Physical Exam - General General appearance: lethargic, in distress, other - Head Head exam: Present: atraumatic, normocephalic - Eye Eye exam: Present: normal appearance - ENT ENT exam: Present: mucous membranes moist - Neck Neck exam: Present: normal inspection, full ROM - Respiratory Respiratory exam: Present: respiratory distress, accessory muscle use (Sternal abdominal retractions), decreased breath sounds. Absent: wheezes, rales, rhonchi, prolonged expiratory - Cardiovascular Cardiovascular Exam: Present: tachycardia, irregular rhythm. Absent: systolic murmur, diastolic murmur, rubs, gallop - GI/Abdominal GI/Abdominal exam: Present: soft, normal bowel sounds, other (Abdominal retractions). Absent: distended, tenderness, guarding, rebound - Rectal Rectal exam: Present: deferred - Extremities Exam Extremities exam: Present: pedal edema - Neurological Exam Neurological exam: Present: altered - Psychiatric Psychiatric exam: Present: flat affect - Skin Skin exam: Present: warm, dry, intact, normal color. Absent: rash ED Course Vital Signs 09/28/20 09/28/20 09/28/20 19:30 19:31 19:45 Temperature 98.2 F Pulse Rate 142 H 136 H 143 H Respiratory 36 H 40 H 37 H Rate Blood Pressure 158/106 158/101 Blood Pressure 158/106 [Left] O2 Sat by Pulse 83 L 96 95 Oximetry 09/28/20 09/28/20 09/28/20 19:59 20:01 20:15 Temperature Pulse Rate 140 H 77 92 H Respiratory 36 H 35 H Rate Blood Pressure 159/108 159/108 149/94 Blood Pressure [Left] O2 Sat by Pulse 98 96 Oximetry 09/28/20 09/28/20 09/28/20 20:31 21:01 21:15 Temperature Pulse Rate 87 112 H 118 H Respiratory 36 H 38 H 36 H Rate Blood Pressure 147/87 160/106 147/87 Blood Pressure [Left] O2 Sat by Pulse 99 96 96 Oximetry - Lab Data Result diagrams: 09/28/20 19:16 09/28/20 19:16 Lab Results 09/28/20 09/28/20 09/28/20 Range/Units 19:12 19:16 19:16 WBC 6.2 (4.5-11.0) K/mm3 RBC 3.26 L (3.65-5.03) M/mm3 Hgb 11.8 (11.8-15.2) gm/dl Hct 35.2 L (35.5-45.6) % MCV 108 H (84-94) fl MCH 36 H (28-32) pg MCHC 34 (32-34) % RDW 21.0 H (13.2-15.2) % Plt Count 117 L (140-440) K/mm3 Lymph % (Auto) 27.8 (13.4-35.0) % [place] % (Auto) 8.3 H (0.0-7.3) % Eos % (Auto) 0.4 (0.0-4.3) % Baso % (Auto) 0.6 (0.0-1.8) % Lymph # (Auto) 1.7 (1.2-5.4) K/mm3 [place] # (Auto) 0.5 (0.0-0.8) K/mm3 Eos # (Auto) 0.0 (0.0-0.4) K/mm3 Baso # (Auto) 0.0 (0.0-0.1) K/mm3 Seg Neutrophils % 62.9 (40.0-70.0) % Seg Neutrophils # 3.9 (1.8-7.7) K/mm3 Sodium 138 (137-145) mmol/L Potassium 4.8 (3.6-5.0) mmol/L Chloride 97.9 L (98-107) mmol/L Carbon Dioxide 24 (22-30) mmol/L Anion Gap 21 mmol/L BUN 69 H (9-20) mg/dL Creatinine 10.3 H (0.8-1.3) mg/dL Estimated GFR 6 ml/min BUN/Creatinine Ratio 7 % Glucose 153 H (75-100) mg/dL POC Glucose 148 H (70-105) mg/dL Lactic Acid (0.7-2.0) mmol/L Calcium 9.8 (8.4-10.2) mg/dL Total Bilirubin 0.60 (0.1-1.2) mg/dL AST 165 H (5-40) units/L ALT 153 H (7-56) units/L Alkaline Phosphatase 91 (35-129) units/L Ammonia (25-60) umol/L Total Protein 7.0 (6.3-8.2) g/dL Albumin 3.6 L (3.9-5) g/dL Albumin/Globulin Ratio 1.1 % TSH (0.270-4.200) mlU/mL 07/10/21 07/10/21 07/10/21 Range/Units 19:16 19:16 19:16 WBC (4.5-11.0) K/mm3 RBC (3.65-5.03) M/mm3 Hgb (11.8-15.2) gm/dl Hct (35.5-45.6) % MCV (84-94) fl MCH (28-32) pg MCHC (32-34) % RDW (13.2-15.2) % Plt Count (140-440) K/mm3 Lymph % (Auto) (13.4-35.0) % [place] % (Auto) (0.0-7.3) % Eos % (Auto) (0.0-4.3) % Baso % (Auto) (0.0-1.8) % Lymph # (Auto) (1.2-5.4) K/mm3 [place] # (Auto) (0.0-0.8) K/mm3 Eos # (Auto) (0.0-0.4) K/mm3 Baso # (Auto) (0.0-0.1) K/mm3 Seg Neutrophils % (40.0-70.0) % Seg Neutrophils # (1.8-7.7) K/mm3 Sodium (137-145) mmol/L Potassium (3.6-5.0) mmol/L Chloride (98-107) mmol/L Carbon Dioxide (22-30) mmol/L Anion Gap mmol/L BUN (9-20) mg/dL Creatinine (0.8-1.3) mg/dL Estimated GFR ml/min BUN/Creatinine Ratio % Glucose (75-100) mg/dL POC Glucose (70-105) mg/dL Lactic Acid 1.30 (0.7-2.0) mmol/L Calcium (8.4-10.2) mg/dL Total Bilirubin (0.1-1.2) mg/dL AST (5-40) units/L ALT (7-56) units/L Alkaline Phosphatase (35-129) units/L Ammonia 27.0 (25-60) umol/L Total Protein (6.3-8.2) g/dL Albumin (3.9-5) g/dL Albumin/Globulin Ratio % TSH 5.790 H (0.270-4.200) mlU/mL - EKG Data -: EKG Interpreted by Me 09/28/20 19:54 EKG obtained 1950 EKG interpreted by me Atrial fibrillation RVR 130 bpm nl axis nl QTC no ST elevation nonspecific t wave pattern - Radiology Data Radiology results: report reviewed [facility] [address] [place] [address] XRay Report Signed Patient: WILLY RUTH MR#: [id number] : 1950 Acct:[id number] Age/Sex: 70 / M ADM Date: 09/28/20 Loc: ED Attending Dr: Ordering Physician: Lou Fishman MD Date of Service: 09/28/20 Procedure(s): XR chest 1V ap Accession Number(s): [id number] cc: Lou Fishman MD Fluoro Time In Minutes: CHEST 1 VIEW INDICATION: Altered Mental Status. COMPARISON: 07/12/2020 FINDINGS: SUPPORT DEVICES: None. HEART: Stable mild cardiomegaly. LUNGS/PLEURA: Mild interstitial edema with moderate-sized layering effusion on the left. ADDITIONAL FINDINGS: None. IMPRESSION: 1. Pulmonary findings as above. Signer Name: Les Larkin MD Signed: 09/28/2020 7:40 PM Workstation Name: [id number] Transcribed By: JW Dictated By: Les Larkin MD Electronically Authenticated By: Les Larkin MD Signed Date/Time: 09/28/201939 DD/ 39 TD/TT: - Medical Decision Making 1. Acute respiratory failure hypoxia: Attributed to hypovolemia, pulmonary edema, uremic complications of end-stage renal disease. I consulted Dr. Simmons aquaculture and fisheries professor for emergent dialysis. Differential diagnosis also includes acute systolic diastolic heart failure, hospital associated pneumonia. Patient will receive emergent dialysis and will need further treatment evaluation to delineate possible other etiology. 2. Acute metabolic encephalopathy: Recurrent condition for patient. Patient also has dementia which appears to be exacerbated by hypoxic state and uremia. No evidence of acute CVA. 3. Elevated TSH, will need outpatient evaluation. 4. Atrial fibrillation RVR: Improved with boluses of IV diltiazem. Patient is admitted to the IM in fair condition. Work-up notable for normal WBC, bicarbonate 24 potassium 4.3 BUN 69 creatinine 10.3 AST ALT elevated TSH also elevated Critical Care Time: Yes Critical care time in (mins) excluding proc time.: 40 Critical care attestation.: If time is entered above; I have spent that time in minutes in the direct care of this critically ill patient, excluding procedure time. 40 minutes of critical care time excluding procedures were used in the care of the patient. I came immediately to the bedside upon patient's arrival. I obtained history from EMS at the bedside. I discussed treatment plan with the nursing team members. I reviewed electronic record. I was concerned for possib le CVA. Also was concerned for imminent airway compromise with significant hypoxia. Patient required multiple interventions and reassessments. ED Disposition Clinical Impression: Acute respiratory failure with hypoxia, Hypervolemia, End stage renal disease on dialysis, Metabolic encephalopathy, Atrial fibrillation with RVR Disposition: OP ADMIT IP TO THIS HOSP Is pt being admited?: Yes Does the pt Need Aspirin: No Condition: Fair
[2020-09-28 19:25] LABS: Basophils % (Auto) 0.6 % (0.0-1.8); Eosinophils % (Auto) 0.4 % (0.0-4.3); Hematocrit 35.2 % (35.5-45.6); Hemoglobin 11.8 gm/dl (11.8-15.2); Lymphocytes # (Auto) 1.7 K/mm3 (1.2-5.4); Lymphocytes % (Auto) 27.8 % (13.4-35.0); Mean Corpuscular HGB Conc 34 % (32-34); Mean Corpuscular Volume 108 fl (84-94); Monocytes # (Auto) 0.5 K/mm3 (0.0-0.8); Monocytes % (Auto) 8.3 % (0.0-7.3); Platelet Count 117 K/mm3 (140-440); Red Blood Count 3.26 M/mm3 (3.65-5.03)
--- NOTE | 2020-09-28 19:45 | XRay Report ---
CHEST 1 VIEW INDICATION: Altered Mental Status. COMPARISON: 07/12/2020 FINDINGS: SUPPORT DEVICES: None. HEART: Stable mild cardiomegaly. LUNGS/PLEURA: Mild interstitial edema with moderate-sized layering effusion on the left. ADDITIONAL FINDINGS: None. IMPRESSION: 1. Pulmonary findings as above. Signer Name: Les Larkin MD Signed: 09/28/2020 7:40 PM Workstation Name: [id number]
[2020-09-28 19:47] LABS: Albumin 3.6 g/dL (3.9-5); Calcium 9.8 mg/dL (8.4-10.2)
[2020-09-28] MEDS ORDERED: dilTIAZem 25 MG/5 ML INJ IV ONE ×2 (19:52→21:39)
--- NOTE | 2020-09-28 21:03 | Cat Scan Report ---
CT BRAIN: 09/28/2020 INDICATION / CLINICAL INFORMATION: Altered Mental Status. COMPARISON: 07/12/2020 FINDINGS: BRAIN/INTRACRANIAL STRUCTURES: Unenhanced CT images of the brain were obtained and compared to the pr ior exam 07/12/2020. Overall, there is been no change. Again seen is pronounced diffuse cerebral atrophy and extensive chronic white matter hypoattenuation. Chronic lacunar changes are noted in the left basal ganglia and thalamus, unchanged when compared to the prior exam. There is no CT evidence of acute large vessel territory ischemic injury, hemorrhage, or mass. There a re no abnormal extra-axial fluid collections. Atherosclerotic vascular calcifications are present in the distal internal carotid arteries and verte bral arteries. EXTRACRANIAL STRUCTURES: Unremarkable. IMPRESSION: No acute abnormality. Extensive chronic and age-related changes, stable when compared to 07/12/2020. All CT scans at this location are performed using dose reduction to ALARA by means of automated expos ure control. Signer Name: Siva Fuentes MD Signed: 09/28/2020 8:58 PM Workstation Name: [id number]
[2020-09-28] MEDS ORDERED: SODIUM CHLORIDE 0.9% 100 ML IV PRN (21:12)
[2020-09-28] MEDS ORDERED: ALBUMIN HUMAN 25% (25 GM/100 ML) INJ IV PRN (21:12)
[2020-09-28] MEDS ORDERED: METOPROLOL TARTRATE 50 MG TAB PO ONE (21:16)
--- NOTE | 2020-09-28 21:29 | Event Note ---
Date: 09/28/20 Contacted by ER physician and administrative assistant receptionist dialysis nurse. Patient has altered mental status and is unable to give consent at present time for hemodialysis. Given his current altered mental state and respiratory failure secondary pulmonary to edema, we will proceed with emergent dialysis tonight.
[2020-09-28] MEDS ORDERED: MAGNESIUM HYDROXIDE (MOM) ORAL LIQD UDC PO PRN (22:32)
[2020-09-28] MEDS ORDERED: ONDANSETRON 4 MG/2 ML INJ IV PRN (22:32)
[2020-09-28] MEDS ORDERED: ACETAMINOPHEN 325 MG TAB PO PRN (22:32)
--- NOTE | 2020-09-28 22:46 | History and Physical Report ---
History of Present Illness Date of examination: 09/28/20 Date of admission: 09/28/2020 Chief complaint: Shortness of Breath History of present illness: 70-year-old male with known history of end-stage renal disease on Mondays, Wednesdays and Fridays, CVA, chronic anemia, diabetes mellitus, hypertension, history of aortic stenosis, dementia, diastolic heart failure, atrial fibrillation who presents to the emergency room today with changes in mental status, nausea and vomiting and shortness of breath. Family had noticed that patient was confused earlier today and was therefore brought to the emergency room. There has been no history of fever or chills, no chest pain. Patient unable to give any good history and appears slightly confused. Patient admits to a session of his dialysis due to the nausea and vomiting. Upon arrival in the emergency room today patient. Toxic with O2 saturation in the 80s. Work-up in the emergency room today, chest x-ray reveals pulmonary edema EKG reveals A. fib with RVR. Patient was given IV diltiazem with significant improvement in his heart rate. [employer] Dem[employer] Dr. Simmons was consulted for immediate dialysis. Past History Past Medical History: dialysis (M,W,F), ESRD, hypertension, other (Dementia) Past Surgical History: Other (Left upper arm fistula.) Social history: no significant social history Family history: no significant family history Medications and Allergies Allergies Allergy/AdvReac Type Severity Reaction Status Date / Time No Known Allergies Allergy Verified 09/28/20 20:06 Home Medications Medication Instructions Recorded Confirmed Last Taken Type Epoetin Blayne 10,000 Unit [Procrit] 10,000 unit IV NINO PRN #1 vial 12/02/18 02/05/20 11/20/19 10:00 Rx HYDROcodone/APAP 5-325 [[place] 1 each PO Q6H PRN tablet 11/22/19 02/05/20 Unknown Rx 5-325 mg TAB] polyethylene glycoL 3350 [Miralax 17 gm PO QDAY PRN #30 powd.pack 11/22/19 02/05/20 Unknown Rx 3350] Acetaminophen [Acetaminophen TAB] 650 mg PO Q4H PRN tablet 02/08/20 Unknown Rx Aspirin 325 mg PO QDAY #30 tablet 09/20/20 Unknown Rx AtorvaSTATin [Lipitor] 40 mg PO QHS #30 tablet 09/20/20 Unknown Rx Famotidine [Pepcid] 10 mg PO BID #60 tablet 09/20/20 Unknown Rx Ferric Citrate (Nf) [Auryxia] 420 mg PO TID #90 tab 09/20/20 Unknown Rx Metoprolol [Lopressor TAB] 50 mg PO BID #60 tablet 09/20/20 Unknown Rx amLODIPine 5 mg PO QDAY #30 tablet 09/20/20 Unknown Rx hydrALAZINE [Apresoline TAB] 50 tab PO TID #180 tablet 09/20/20 Unknown Rx Active Meds: Active Medications Acetaminophen (Acetaminophen 325 Mg Tab) 650 mg PO Q6H PRN PRN Reason: Pain MILD(1-3)/Fever >100.5/RUIZ Albumin Human (Albumin Human 25% (25 Gm/100 Ml) Inj) 25 gm IV NINO PRN PRN Reason: Hypotension Heparin Sodium (Porcine) (Heparin 5,000 Unit/1 Ml Vial) 5,000 unit SUB-Q Q8HR BECKIE Sodium Chloride (Nacl 0.9%) 100 mls @ 999 mls/hr IV NINO PRN PRN Reason: Hypotension Magnesium Hydroxide (Magnesium Hydroxide (Mom) Oral Liqd Udc) 30 ml PO Q4H PRN PRN Reason: Constipation Morphine Sulfate (Morphine 2 Mg/1 Ml Inj) 2 mg IV Q4H PRN PRN Reason: Pain, Moderate (4-6) Morphine Sulfate (Morphine 4 Mg/1 Ml Inj) 4 mg IV Q4H PRN PRN Reason: Pain , Severe (7-10) Ondansetron HCl (Ondansetron 4 Mg/2 Ml Inj) 4 mg IV Q8H PRN PRN Reason: Nausea And Vomiting Sodium Chloride (Sodium Chloride 0.9% 10 Ml Flush Syringe) 10 ml IV BID BECKIE Sodium Chloride (Sodium Chloride 0.9% 10 Ml Flush Syringe) 10 ml IV PRN PRN PRN Reason: LINE FLUSH Review of Systems ROS unobtainable: due to mental status Exam - Constitutional Vitals: Temp Pulse Resp BP Pulse Ox 98.2 F 114 H 36 H 157/108 96 09/28/20 19:30 09/28/20 21:44 09/28/20 21:15 09/28/20 21:44 09/28/20 21:15 General appearance: Present: no acute distress, well-nourished - EENT Eyes: Present: PERRL, EOM intact. Absent: scleral icterus ENT: hearing intact, clear oral mucosa, dentition normal - Neck Neck: Present: supple, normal ROM Results - Labs CBC & Chem 7: 09/28/20 19:16 09/28/20 19:16 Labs: Abnormal lab results 09/28/20 09/28/20 09/28/20 Range/Units 19:12 19:16 19:16 RBC 3.26 L (3.65-5.03) M/mm3 Hct 35.2 L (35.5-45.6) % MCV 108 H (84-94) fl MCH 36 H (28-32) pg RDW 21.0 H (13.2-15.2) % Plt Count 117 L (140-440) K/mm3 [place] % (Auto) 8.3 H (0.0-7.3) % Chloride 97.9 L (98-107) mmol/L BUN 69 H (9-20) mg/dL Creatinine 10.3 H (0.8-1.3) mg/dL Glucose 153 H (75-100) mg/dL POC Glucose 148 H (70-105) mg/dL AST 165 H (5-40) units/L ALT 153 H (7-56) units/L Albumin 3.6 L (3.9-5) g/dL TSH (0.270-4.200) mlU/mL 09/28/20 Range/Units 19:16 RBC (3.65-5.03) M/mm3 Hct (35.5-45.6) % MCV (84-94) fl MCH (28-32) pg RDW (13.2-15.2) % Plt Count (140-440) K/mm3 [place] % (Auto) (0.0-7.3) % Chloride (98-107) mmol/L BUN (9-20) mg/dL Creatinine (0.8-1.3) mg/dL Glucose (75-100) mg/dL POC Glucose (70-105) mg/dL AST (5-40) units/L ALT (7-56) units/L Albumin (3.9-5) g/dL TSH 5.790 H (0.270-4.200) mlU/mL Assessment and Plan - Patient Problems (1) ESRD on dialysis Current Visit: Yes Status: Chronic Plan to address problem: Patient gets dialysis on Mondays, Wednesdays and Fridays. [employer] Dem[employer] Dr. Simmons has been consulted for dialysis. (2) Atrial fibrillation with RVR Current Visit: Yes Status: Acute Plan to address problem: Patient has known history of atrial fibrillation. He had some IV diltiazem in the ER with rate control. We will resume routine home medications and monitor EKG. (3) Altered mental state Current Visit: No Status: Acute Plan to address problem: Etiology unclear. Patient has known history of dementia. To mental status probably related to the uremia. (4) Hypertension Current Visit: No Status: Chronic Qualifiers: Hypertension type: essential hypertension Plan to address problem: We will resume routine home medications and monitor vital signs. (5) DVT prophylaxis Current Visit: No Status: Acute Plan to address problem: Patient placed on subcutaneous heparin. (6) Full code status Current Visit: No Status: Acute Plan to address problem: Patient is full code.
[2020-09-29] MEDS: MORPHINE 2 MG/1 ML INJ IV PRN (00:49)
[2020-09-29] MEDS ORDERED: POLYETHYLENE GLYCOL 3350 17 GM POWDER PO PRN (04:55)
[2020-09-29] MEDS ORDERED: HYDROcodone/ACETAMINOPHEN 5-325 MG TAB PO PRN (04:55)
[2020-09-29 06:07] LABS: Basophils % (Auto) 0.5 % (0.0-1.8); Eosinophils % (Auto) 0.2 % (0.0-4.3); Hematocrit 34.4 % (35.5-45.6); Hemoglobin 11.6 gm/dl (11.8-15.2); Lymphocytes # (Auto) 1.4 K/mm3 (1.2-5.4); Lymphocytes % (Auto) 30.4 % (13.4-35.0); Mean Corpuscular HGB Conc 34 % (32-34); Mean Corpuscular Volume 108 fl (84-94); Monocytes # (Auto) 0.4 K/mm3 (0.0-0.8); Monocytes % (Auto) 7.8 % (0.0-7.3); Red Blood Count 3.19 M/mm3 (3.65-5.03)
[2020-09-29 06:22] LABS: INR 1.15 (0.87-1.13)
[2020-09-29] MEDS: HEPARIN 5,000 UNIT/1 ML VIAL SUB-Q SCH ×3 (06:25→22:00)
[2020-09-29 06:32] LABS: Platelet Count 93 K/mm3 (140-440); Red Cell Distribution Width 20.8 % (13.2-15.2)
[2020-09-29] MEDS: METOPROLOL TARTRATE 50 MG TAB PO SCH ×3 (08:00→17:55)
[2020-09-29] MEDS: FAMOTIDINE 10 MG TAB PO SCH ×3 (09:50→22:00)
[2020-09-29] MEDS: amLODIPine 5 MG TAB PO SCH ×2 (09:51→10:21)
[2020-09-29] MEDS: ASPIRIN 325 MG TAB PO SCH ×2 (09:51→10:21)
[2020-09-29] MEDS: D5W/0.9% NACL 1,000 ML IV SCH (13:30)
[2020-09-29] MEDS ORDERED: D5W/0.45% NACL 1,000 ML IV SCH (14:00)
--- NOTE | 2020-09-29 15:49 | Progress Note ---
Assessment and Plan -- Acute metabolic encephalopathy Likely due to uremia and underlying history of dementia CT head without contrast no acute abnormality Neurochecks and supportive care Continue aspirin and statin Continue to provide supportive care Of note patient had prior admission with similar presentation and work-up were essentially normal --Dementia, history of Patient does have history of dementia and apparently is becoming progressive -- Atrial fibrillation with RVR He had some IV diltiazem in the ER with rate control. We will resume routine home medications and monitor EKG. --NSTEMI (non-ST elevated myocardial infarction) type II In the setting of end-stage renal disease Chronic elevation of troponins Echo; EF 40 to 45%, continue aspirin And statin --Chronic systolic CHF, EF 40 to 45% Continue aspirin and statin, volume control with hemodialysis -- ESRD on dialysis Hemodialysis per schedule --Hypertension Continue current antihypertensives --GERD; Protonix 40 mg p.o. daily. --Full CODE STATUS -- DVT prophylaxis: s/p Heparin 5000 units subcu every 8 hours. Daily clinical course: 09/29/20: Patient refused to eat, mental status remain unchanged, does not make any eye contact. Placed on low volume D5 normal saline, monitor clinically. Patient noted to be in normal sinus rhythm on telemetry. Subjective Date of service: 09/29/20 Interval history: Patient seen and examined. Medical records and medication list reviewed. No acute event overnight noted by the RN. Patient appears to be confused and lethargic, does not follow any command Discussed plan of care at bedside with patient's RN. Objective - Exam Narrative Exam: GENERAL: well-developed and well-nourished -Citizen Of [place] male lying on bed appeared to be in no discomfort, appears lethargic HEENT: Normocephalic. Atraumatic. No conjunctival congestion or icterus. Patient has moist mucous membranes. NECK: Supple. Trachea midline. CHEST/LUNGS: Clear to auscultated bilaterally, breathing nonlabored. No wheezes crackles or rhonchi. HEART/CARDIOVASCULAR: Regular in rate and rhythm. S1 and S2 positive. ABDOMEN: Abdomen is soft, nontender. Patient has normal bowel sounds. SKIN: There is no rash. Warm and dry. NEURO: Patient with a blind stare, nonverbal, does not follow any command, MUSCULOSKELETAL: No joint effusion or tenderness. EXTRIMITY: No edema, no cyanosis or clubbing. PSYCH: Unable to assess. - Constitutional Vitals: Vital Signs - 12hr 09/29/20 09/29/20 09/29/20 03:50 04:00 05:00 Temperature 97.8 F Pulse Rate 95 H 123 H 100 H Pulse Rate [ From Monitor] Respiratory 19 18 Rate Blood Pressure 128/86 115/94 O2 Sat by Pulse 100 100 Oximetry 09/29/20 09/29/20 09/29/20 06:01 06:29 07:01 Temperature Pulse Rate 101 H 108 H Pulse Rate [ 99 H From Monitor] Respiratory 18 20 20 Rate Blood Pressure 143/98 137/94 O2 Sat by Pulse 100 98 99 Oximetry 09/29/20 09/29/20 09/29/20 08:00 08:03 08:13 Temperature 98.0 F Pulse Rate 94 H 116 H Pulse Rate [ From Monitor] Respiratory 12 Rate Blood Pressure 130/82 O2 Sat by Pulse 100 Oximetry 09/29/20 09/29/20 09/29/20 09:00 10:00 10:21 Temperature Pulse Rate 98 H 91 H 94 H Pulse Rate [ 99 H From Monitor] Respiratory 17 20 Rate Blood Pressure 130/82 125/75 130/82 O2 Sat by Pulse 97 98 Oximetry 09/29/20 09/29/20 09/29/20 11:00 11:53 12:00 Temperature 97.7 F Pulse Rate 108 H 102 H Pulse Rate [ From Monitor] Respiratory 24 16 Rate Blood Pressure 124/84 130/82 O2 Sat by Pulse 100 100 Oximetry 09/29/20 09/29/20 12:03 13:00 Temperature Pulse Rate 96 H 126 H Pulse Rate [ From Monitor] Respiratory 25 H Rate Blood Pressure 130/82 O2 Sat by Pulse 100 Oximetry - Labs CBC & Chem 7: 10/01/20 19:20 10/02/20 04:58 Labs: Abnormal lab results 09/28/20 09/28/20 09/28/20 Range/Units 19:12 19:16 19:16 RBC 3.26 L (3.65-5.03) M/mm3 Hgb (11.8-15.2) gm/dl Hct 35.2 L (35.5-45.6) % MCV 108 H (84-94) fl MCH 36 H (28-32) pg RDW 21.0 H (13.2-15.2) % Plt Count 117 L (140-440) K/mm3 Mellette % (Auto) 8.3 H (0.0-7.3) % PT (12.2-14.9) Sec. INR (0.87-1.13) Chloride 97.9 L (98-107) mmol/L BUN 69 H (9-20) mg/dL Creatinine 10.3 H (0.8-1.3) mg/dL Glucose 153 H (75-100) mg/dL POC Glucose 148 H (70-105) mg/dL AST 165 H (5-40) units/L ALT 153 H (7-56) units/L Albumin 3.6 L (3.9-5) g/dL TSH (0.270-4.200) mlU/mL 09/28/20 09/29/20 09/29/20 Range/Units 19:16 04:41 04:41 RBC 3.19 L (3.65-5.03) M/mm3 Hgb 11.6 L (11.8-15.2) gm/dl Hct 34.4 L (35.5-45.6) % MCV 108 H (84-94) fl MCH 36 H (28-32) pg RDW 20.8 H (13.2-15.2) % Plt Count 93 L (140-440) K/mm3 Mellette % (Auto) 7.8 H (0.0-7.3) % PT 15.2 H (12.2-14.9) Sec. INR 1.15 H (0.87-1.13) Chloride (98-107) mmol/L BUN (9-20) mg/dL Creatinine (0.8-1.3) mg/dL Glucose (75-100) mg/dL POC Glucose (70-105) mg/dL AST (5-40) units/L ALT (7-56) units/L Albumin (3.9-5) g/dL TSH 5.790 H (0.270-4.200) mlU/mL 09/29/20 Range/Units 04:41 RBC (3.65-5.03) M/mm3 Hgb (11.8-15.2) gm/dl Hct (35.5-45.6) % MCV (84-94) fl MCH (28-32) pg RDW (13.2-15.2) % Plt Count (140-440) K/mm3 Mellette % (Auto) (0.0-7.3) % PT (12.2-14.9) Sec. INR (0.87-1.13) Chloride (98-107) mmol/L BUN 44 H (9-20) mg/dL Creatinine 7.5 H (0.8-1.3) mg/dL Glucose (75-100) mg/dL POC Glucose (70-105) mg/dL AST (5-40) units/L ALT (7-56) units/L Albumin (3.9-5) g/dL TSH (0.270-4.200) mlU/mL
--- NOTE | 2020-09-29 20:08 | Consultation ---
History of Present Illness - Reason for Consult end stage renal disease - History of Present Illness 70 y/o black male with h/o ESRD in setting of HTN, well known to our outpatient HD clinic at [facility], presented to the ED secondary to worsening weakness and altered mentation in the setting of missed HD treatments. Chest xray also concerning for volume overload and pulmonary edema, for which patient underwent emergent dialysis last night. Nephrology consulted for further management. Past History Past Medical History: dialysis (M,W,F), ESRD, hypertension, other (Dementia) Past Surgical History: Other (Left upper arm fistula.) Social history: no significant social history Family history: no significant family history Medications and Allergies Allergies Allergy/AdvReac Type Severity Reaction Status Date / Time No Known Allergies Allergy Verified 09/28/20 20:06 Home Medications Medication Instructions Recorded Confirmed Last Taken Type Epoetin Blayne 10,000 Unit [Procrit] 10,000 unit IV NINO PRN #1 vial 12/02/18 02/05/20 11/20/19 10:00 Rx HYDROcodone/APAP 5-325 [Ucon 1 each PO Q6H PRN tablet 11/22/19 02/05/20 Unknown Rx 5-325 mg TAB] polyethylene glycoL 3350 [Miralax 17 gm PO QDAY PRN #30 powd.pack 11/22/19 02/05/20 Unknown Rx 3350] Acetaminophen [Acetaminophen TAB] 650 mg PO Q4H PRN tablet 02/08/20 Unknown Rx Aspirin 325 mg PO QDAY #30 tablet 09/20/20 Unknown Rx AtorvaSTATin [Lipitor] 40 mg PO QHS #30 tablet 09/20/20 Unknown Rx Famotidine [Pepcid] 10 mg PO BID #60 tablet 09/20/20 Unknown Rx Ferric Citrate (Nf) [Auryxia] 420 mg PO TID #90 tab 09/20/20 Unknown Rx Metoprolol [Lopressor TAB] 50 mg PO BID #60 tablet 09/20/20 Unknown Rx amLODIPine 5 mg PO QDAY #30 tablet 09/20/20 Unknown Rx hydrALAZINE [Apresoline TAB] 50 tab PO TID #180 tablet 09/20/20 Unknown Rx Active Meds: Active Medications Acetaminophen (Acetaminophen 325 Mg Tab) 650 mg PO Q6H PRN PRN Reason: Pain MILD(1-3)/Fever >100.5/RUIZ Hydrocodone Bitart/Acetaminophen (Hydrocodone/Acetaminophen 5-325 Mg Tab) 1 each PO Q6H PRN PRN Reason: Pain , Severe (7-10) Albumin Human (Albumin Human 25% (25 Gm/100 Ml) Inj) 25 gm IV NINO PRN PRN Reason: Hypotension Amlodipine Besylate (Amlodipine 5 Mg Tab) 5 mg PO QDAY [facility] Last Admin: 09/29/20 10:21 Dose: Not Given Documented by: Aspirin (Aspirin 325 Mg Tab) 325 mg PO QDAY [facility] Last Admin: 09/29/20 10:21 Dose: Not Given Documented by: Atorvastatin Calcium (Atorvastatin 40 Mg Tab) 40 mg PO QHS [facility] Famotidine (Famotidine 10 Mg Tab) 10 mg PO BID [facility] Last Admin: 09/29/20 10:21 Dose: Not Given Documented by: Heparin Sodium (Porcine) (Heparin 5,000 Unit/1 Ml Vial) 5,000 unit SUB-Q Q8HR [facility] Last Admin: 09/29/20 14:23 Dose: 5,000 unit Documented by: Hydralazine HCl (Hydralazine 25 Mg Tab) 50 mg PO TID [facility] Sodium Chloride (Nacl 0.9%) 100 mls @ 999 mls/hr IV NINO PRN PRN Reason: Hypotension Dextrose/Sodium Chloride (D5ns) 1,000 mls @ 42 mls/hr IV DIRECT [facility] Last Admin: 09/29/20 13:30 Dose: 42 mls/hr Documented by: Magnesium Hydroxide (Magnesium Hydroxide (Mom) Oral Liqd Udc) 30 ml PO Q4H PRN PRN Reason: Constipation Metoprolol Tartrate (Metoprolol Tartrate 50 Mg Tab) 50 mg PO BID@0800,1700 [facility] Last Admin: 09/29/20 17:55 Dose: 50 mg Documented by: Morphine Sulfate (Morphine 2 Mg/1 Ml Inj) 2 mg IV Q4H PRN PRN Reason: Pain, Moderate (4-6) Last Admin: 09/29/20 00:49 Dose: 2 mg Documented by: Morphine Sulfate (Morphine 4 Mg/1 Ml Inj) 4 mg IV Q4H PRN PRN Reason: Pain , Severe (7-10) Ondansetron HCl (Ondansetron 4 Mg/2 Ml Inj) 4 mg IV Q8H PRN PRN Reason: Nausea And Vomiting Polyethylene Glycol (Polyethylene Glycol 3350 17 Gm Powder) 17 gm PO QDAY PRN PRN Reason: Constipation Sodium Chloride (Sodium Chloride 0.9% 10 Ml Flush Syringe) 10 ml IV BID BECKIE Last Admin: 09/29/20 09:52 Dose: 10 ml Documented by: Sodium Chloride (Sodium Chloride 0.9% 10 Ml Flush Syringe) 10 ml IV PRN PRN PRN Reason: LINE FLUSH Review of Systems All systems: negative Constitutional: fatigue, weakness Exam - Vital Signs Vital signs: Vital Signs Temp Pulse Resp BP Pulse Ox 98.2 F 142 H 43 H 158/106 83 L 09/28/20 19:30 09/28/20 19:30 09/28/20 19:30 09/28/20 19:30 09/28/20 19:30 - General Appearance General appearance: appears stated age, chronically ill, fatigue EENT: ATNC Neck: Present: neck supple Respiratory: Decreased Breath Sounds Heart: regular Gastrointestinal: Present: normal Integumentary: no rash Neurologic: confused Musculoskeletal: Present: deferred Results - Lab Results 09/29/20 04:41 09/29/20 04:41 Most recent lab results Calcium 10.0 mg/dL (8.4-10.2) 09/29/20 04:41 Assessment and Plan - Patient Problems (1) Metabolic encephalopathy Current Visit: Yes Status: Acute Plan to address problem: In the setting of missed HD treatments. Will dialyze and monitor mentation changes. Discussed with primary RN, who states that patient is better this am but is refusing to eat or interact. He may benefit for behavioral assessment and screen for depression. (2) Hypervolemia Current Visit: Yes Status: Chronic Plan to address problem: Will optimize with UF during HD treatments. No acute HD needs this am. Plan to place on MWF inpatient HD schedule, and will assess for additional needs of sequential UF treatment. 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 (4) Atrial fibrillation with RVR Current Visit: Yes Status: Acute Plan to address problem: Rate control per cardiology. (5) ESRD on dialysis Current Visit: Yes Status: Chronic Plan to address problem: Maintain on inpatient MWF HD schedule. Orders placed. (6) Anemia in chronic kidney disease (CKD) Current Visit: No Status: Chronic Qualifiers: Chronic kidney disease stage: on chronic dialysis Qualified Code(s): N18.6 - End stage renal disease; D63.1 - Anemia in chronic kidney disease; Z99.2 - D ependence on renal dialysis Plan to address problem: H/H levels are stable, and there is no acute needs for BRIDGET therapy. Will monitor closely.
[2020-09-30 05:23] LABS: Basophils % (Auto) 0.9 % (0.0-1.8); Eosinophils # (Auto) 0.2 K/mm3 (0.0-0.4); Eosinophils % (Auto) 5.4 % (0.0-4.3); Hematocrit 34.2 % (35.5-45.6); Hemoglobin 11.4 gm/dl (11.8-15.2); Lymphocytes # (Auto) 1.5 K/mm3 (1.2-5.4); Lymphocytes % (Auto) 40.4 % (13.4-35.0); Mean Corpuscular HGB Conc 33 % (32-34); Mean Corpuscular Volume 109 fl (84-94); Monocytes # (Auto) 0.4 K/mm3 (0.0-0.8); Monocytes % (Auto) 10.9 % (0.0-7.3); Red Blood Count 3.12 M/mm3 (3.65-5.03); Red Cell Distribution Width 19.9 % (13.2-15.2)
[2020-09-30 05:36] LABS: Calcium 9.2 mg/dL (8.4-10.2)
[2020-09-30 05:42] LABS: Platelet Count 96 K/mm3 (140-440)
[2020-09-30] MEDS: HEPARIN 5,000 UNIT/1 ML VIAL SUB-Q SCH ×3 (06:49→22:55)
[2020-09-30] MEDS ORDERED: SODIUM CHLORIDE 0.9% 100 ML IV PRN (07:30)
--- NOTE | 2020-09-30 08:17 | Progress Note ---
Assessment and Plan - Patient Problems (1) Metabolic encephalopathy Current Visit: Yes Status: Acute Plan to address problem: In the setting of missed HD treatments. Will dialyze and monitor mentation changes. Discussed with primary RN, who states that patient is better this am but is refusing to eat or interact. He may benefit for behavioral assessment and screen for depression. Overall mentation is showing slow improvement. HD today. (2) Hypervolemia Current Visit: Yes Status: Chronic Plan to address problem: Will optimize with UF during HD treatments. Plan to place on MWF inpatient HD schedule, and will assess for additional needs of sequential UF treatment. 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 (4) Atrial fibrillation with RVR Current Visit: Yes Status: Acute Plan to address problem: Rate control per cardiology. (5) ESRD on dialysis Current Visit: Yes Status: Chronic Plan to address problem: Maintain on inpatient MWF HD schedule. Orders placed. (6) Anemia in chronic kidney disease (CKD) Current Visit: No Status: Chronic Qualifiers: Chronic kidney disease stage: on chronic dialysis Qualified Code(s): N18.6 - End stage renal disease; D63.1 - Anemia in chronic kidney disease; Z99.2 - Dependence on renal dialysis Plan to address problem: H/H levels are stable, and there is no acute needs for BRIDGET therapy. Will monitor closely. Subjective Date of service: 09/30/20 Interval history: More awake this am and willing to interact. Plan for HD today. Per nursing notes he did eat more of his meals yesterday. Objective - Vital Signs Vital signs: Vital Signs - 12hr 09/29/20 09/29/20 09/29/20 21:00 22:00 22:12 Temperature Pulse Rate 85 80 Pulse Rate [ From Monitor] Respiratory 24 24 26 H Rate Respiratory 20 Rate [ Generalized] Blood Pressure 125/75 121/77 O2 Sat by Pulse 89 90 Oximetry 09/29/20 09/29/20 09/30/20 23:00 23:12 00:00 Temperature 97.5 F L Pulse Rate 75 75 Pulse Rate [ 80 From Monitor] Respiratory 20 16 20 Rate Respiratory Rate [ Generalized] Blood Pressure 131/80 125/74 O2 Sat by Pulse 98 91 Oximetry 09/30/20 09/30/2009/30/21 01:00 02:00 03:00 Temperature Pulse Rate 80 88 77 Pulse Rate [ From Monitor] Respiratory 16 20 16 Rate Respiratory Rate [ Generalized] Blood Pressure 123/76 129/78 130/80 O2 Sat by Pulse 98 97 99 Oximetry 09/30/20 09/30/20 09/30/20 04:00 04:14 05:00 Temperature 97.5 F L Pulse Rate 78 114 H Pulse Rate [ From Monitor] Respiratory 18 26 H Rate Respiratory Rate [ Generalized] Blood Pressure 130/80 130/80 O2 Sat by Pulse 92 94 Oximetry 09/30/20 09/30/20 06:00 07:30 Temperature 97.5 F L Pulse Rate 82 Pulse Rate [ 82 From Monitor] Respiratory 13 Rate Respiratory Rate [ Generalized] Blood Pressure 130/82 O2 Sat by Pulse 100 Oximetry - General Appearance General appearance: chronically ill, frail EENT: ATNC Neck: no JVD Respiratory: Present: Decreased Breath Sounds Cardiology: regular Gastrointestinal: normal Integumentary: no rash Neurologic: no focal deficit Psychiatric: cooperative - Lab 09/30/20 04:52 09/30/20 04:52 Most recent lab results Calcium 9.2 mg/dL (8.4-10.2) 09/30/20 04:52 - Allied health notes Allied health notes reviewed: nursing Medications & Allergies - Medications Allergies/Adverse Reactions: Allergies No Known Allergies Allergy (Verified 09/28/20 20:06) Home Medications: Home Medications Medication Instructions Recorded Confirmed Last Taken Type Epoetin Blayne 10,000 Unit [Procrit] 10,000 unit IV NINO PRN #1 vial 12/02/18 02/05/20 11/20/19 10:00 Rx HYDROcodone/APAP 5-325 [[place]opez 1 each PO Q6H PRN tablet 11/22/19 02/05/20 Unknown Rx 5-325 mg TAB] polyethylene glycoL 3350 [Miralax 17 gm PO QDAY PRN #30 powd.pack 11/22/19 02/05/20 Unknown Rx 3350] Acetaminophen [Acetaminophen TAB] 650 mg PO Q4H PRN tablet 02/08/20 Unknown Rx Aspirin 325 mg PO QDAY #30 tablet 09/20/20 Unknown Rx AtorvaSTATin [Lipitor] 40 mg PO QHS #30 tablet 09/20/20 Unknown Rx Famotidine [Pepcid] 10 mg PO BID #60 tablet 09/20/20 Unknown Rx Ferric Citrate (Nf) [Auryxia] 420 mg PO TID #90 tab 09/20/20 Unknown Rx Metoprolol [Lopressor TAB] 50 mg PO BID #60 tablet 09/20/20 Unknown Rx amLODIPine 5 mg PO QDAY #30 tablet 09/20/20 Unknown Rx hydrALAZINE [Apresoline TAB] 50 tab PO TID #180 tablet 09/20/20 Unknown Rx Active Medications: Generic Name Dose Route Start Last Admin Trade Name Freq PRN Reason Stop Dose Admin Acetaminophen 650 mg 09/28/20 22:32 Acetaminophen 325 Mg Tab PO Q6H PRN Pain MILD(1-3)/Fever >100.5/RUIZ Hydrocodone Bitart/Acetaminophen 1 each 09/29/20 04:55 09/29/20 22:12 Hydrocodone/Acetaminophen 5-325 Mg Tab PO 1 each Q6H PRN Administration Pain , Severe (7-10) Albumin Human 25 gm 09/28/20 21:12 Albumin Human 25% (25 Gm/100 Ml) Inj IV NINO PRN Hypotension Amlodipine Besylate 5 mg 09/29/20 10:00 09/29/20 10:21 Amlodipine 5 Mg Tab PO Not Given QDAY BECKIE Aspirin 325 mg 09/29/20 10:00 09/29/20 10:21 Aspirin 325 Mg Tab PO Not Given QDAY [facility] Atorvastatin Calcium 40 mg 09/29/20 22:00 Atorvastatin 40 Mg Tab PO QHS BECKIE Famotidine 10 mg 09/29/20 10:00 09/29/20 22:00 Famotidine 10 Mg Tab PO 10 mg BID BECKIE Administration Heparin Sodium (Porcine) 5,000 unit 09/29/20 06:00 09/30/20 06:49 Heparin 5,000 Unit/1 Ml Vial SUB-Q 5,000 unit Q8HR BECKIE Administration Hydralazine HCl 50 mg 09/29/20 08:00 Hydralazine 25 Mg Tab PO TID BECKEI Dextrose/Sodium Chloride 1,000 mls @ 42 mls/hr 09/29/20 14:00 09/29/20 13:30 D5ns IV 42 mls/hr DIRECT BECKIE Administration Sodium Chloride 100 mls @ 999 mls/hr 09/30/20 07:30 Nacl 0.9% IV NINO PRN Hypotension Magnesium Hydroxide 30 ml 09/28/20 22:32 Magnesium Hydroxide (Mom) Oral Liqd Udc PO Q4H PRN Constipation Metoprolol Tartrate 50 mg 09/29/20 08:00 09/29/20 17:55 Metoprolol Tartrate 50 Mg Tab PO 50 mg BID@0800,1700 BECKIE Administration Morphine Sulfate 2 mg 09/28/20 22:32 09/29/20 00:49 Morphine 2 Mg/1 Ml Inj IV 2 mg Q4H PRN Administration Pain, Moderate (4-6) Morphine Sulfate 4 mg 09/28/20 22:32 Morphine 4 Mg/1 Ml Inj IV Q4H PRN Pain , Severe (7-10) Ondansetron HCl 4 mg 09/28/20 22:32 Ondansetron 4 Mg/2 Ml Inj IV Q8H PRN Nausea And Vomiting Polyethylene Glycol 17 gm 09/29/20 04:55 Polyethylene Glycol 3350 17 Gm Powder PO QDAY PRN Constipation Sodium Chloride 10 ml 09/29/20 10:00 09/29/20 22:00 Sodium Chloride 0.9% 10 Ml Flush Syringe IV 10 ml BID BECKIE Administration Sodium Chloride 10 ml 09/28/20 22:26 Sodium Chloride 0.9% 10 Ml Flush Syringe IV PRN PRN LINE FLUSH
[2020-09-30 08:27] LABS: Alanine Aminotransferase 150 units/L (7-56); Albumin 3.2 g/dL (3.9-5)
[2020-09-30] MEDS: METOPROLOL TARTRATE 50 MG TAB PO SCH ×2 (08:33→22:56)
[2020-09-30 08:46] LABS: Bilirubin,Direct < 0.2 mg/dL (0-0.2)
[2020-09-30] MEDS: amLODIPine 5 MG TAB PO SCH (09:18)
[2020-09-30] MEDS: FAMOTIDINE 10 MG TAB PO SCH ×2 (09:18→22:54)
[2020-09-30] MEDS: ASPIRIN 325 MG TAB PO SCH (09:18)
[2020-09-30] MEDS: D5W/0.9% NACL 1,000 ML IV SCH (12:35)
--- NOTE | 2020-09-30 13:21 | Consultation ---
History of Present Illness - Reason for Consult Consult date: 09/30/20 Reason for consult: severe Depression - Chief Complaint Chief complaint: Shortness of Breath - History of Present Psychiatric Illness Per Note: 70-year-old male with known history of end-stage renal disease on Mondays, Wednesdays and Fridays, CVA, chronic anemia, diabetes mellitus, hypertension, history of aortic stenosis, dementia, diastolic heart failure, atrial fibrillation who presents to the emergency room today with changes in mental status, nausea and vomiting and shortness of breath. Family had noticed that patient was confused earlier today and was therefore brought to the emergency room. The patient was seen in bed eating lunch. The patient was guarded and was unable to answer questions. PAST PSYCHIATRIC HISTORY: Unable to assess PAST MEDICAL HISTORY: None reported or document Family Psychiatric History: None reported or documented SOCIAL HISTORY: Unable to assess REVIEW OF SYSTEMS: Unable to assess MENTAL STATUS EXAMINATION: Unable to assess Diagnosis: Treatment Plan PSYCHOTHERAPY: Supportive psychotherapy provided MEDICAL: Per primary team DELIRIUM PRECAUTIONS: Please re-orient patient frequently, keep lights on during the day, and minimize benzodiazepines and opiates as these medications could worsen patient's confusion. 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 Patient to follow up with outpatient psychiatric. Please contact with any questions and/or concerns. Case staffed with Dr. Jackson Medications and Allergies Allergies Allergy/AdvReac Type Severity Reaction Status Date / Time No Known Allergies Allergy Verified 09/28/20 20:06 Home Medications Medication Instructions Recorded Confirmed Last Taken Type Epoetin Blayne 10,000 Unit [Procrit] 10,000 unit IV NINO PRN #1 vial 12/02/1811/20/19 10:00 Rx HYDROcodone/APAP 5-325 [[place] 1 each PO Q6H PRN tablet 11/22/19 02/05/20 Unknown Rx 5-325 mg TAB] polyethylene glycoL 3350 [Miralax 17 gm PO QDAY PRN #30 powd.pack 11/22/19 02/05/20 Unknown Rx 3350] Acetaminophen [Acetaminophen TAB] 650 mg PO Q4H PRN tablet 02/08/20 Unknown Rx Aspirin 325 mg PO QDAY #30 tablet 09/20/20 Unknown Rx AtorvaSTATin [Lipitor] 40 mg PO QHS #30 tablet 09/20/20 Unknown Rx Famotidine [Pepcid] 10 mg PO BID #60 tablet 09/20/20 Unknown Rx Ferric Citrate (Nf) [Auryxia] 420 mg PO TID #90 tab 09/20/20 Unknown Rx Metoprolol [Lopressor TAB] 50 mg PO BID #60 tablet 09/20/20 Unknown Rx amLODIPine 5 mg PO QDAY #30 tablet 09/20/20 Unknown Rx hydrALAZINE [Apresoline TAB] 50 tab PO TID #180 tablet 09/20/20 Unknown Rx Active Meds: Active Medications Acetaminophen (Acetaminophen 325 Mg Tab) 650 mg PO Q6H PRN PRN Reason: Pain MILD(1-3)/Fever >100.5/RUIZ Hydrocodone Bitart/Acetaminophen (Hydrocodone/Acetaminophen 5-325 Mg Tab) 1 each PO Q6H PRN PRN Reason: Pain , Severe (7-10) Last Admin: 09/29/20 22:12 Dose: 1 each Documented by: Albumin Human (Albumin Human 25% (25 Gm/100 Ml) Inj) 25 gm IV NINO PRN PRN Reason: Hypotension Amlodipine Besylate (Amlodipine 5 Mg Tab) 5 mg PO QDAY [facility] Last Admin: 09/30/20 09:18 Dose: 5 mg Documented by: Aspirin (Aspirin 325 Mg Tab) 325 mg PO QDAY [facility] Last Admin: 09/30/20 09:18 Dose: 325 mg Documented by: Atorvastatin Calcium (Atorvastatin 40 Mg Tab) 40 mg PO QHS [facility] Famotidine (Famotidine 10 Mg Tab) 10 mg PO BID [facility] Last Admin: 09/30/20 09:18 Dose: 10 mg Documented by: Heparin Sodium (Porcine) (Heparin 5,000 Unit/1 Ml Vial) 5,000 unit SUB-Q Q8HR [facility] Last Admin: 09/30/20 06:49 Dose: 5,000 unit Documented by: Hydralazine HCl (Hydralazine 25 Mg Tab) 50 mg PO TID [facility] Dextrose/Sodium Chloride (D5ns) 1,000 mls @ 42 mls/hr IV DIRECT [facility] Last Admin: 09/30/20 12:35 Dose: 42 mls/hr Documented by: Sodium Chloride (Nacl 0.9%) 100 mls @ 999 mls/hr IV NINO PRN PRN Reason: Hypotension Magnesium Hydroxide (Magnesium Hydroxide (Mom) Oral Liqd Udc) 30 ml PO Q4H PRN PRN Reason: Constipation Metoprolol Tartrate (Metoprolol Tartrate 50 Mg Tab) 50 mg PO BID@0800,1700 [facility] Last Admin: 09/30/20 08:33 Dose: 50 mg Documented by: Morphine Sulfate (Morphine 2 Mg/1 Ml Inj) 2 mg IV Q4H PRN PRN Reason: Pain, Moderate (4-6) Last Admin: 09/29/20 00:49 Dose: 2 mg Documented by: Morphine Sulfate (Morphine 4 Mg/1 Ml Inj) 4 mg IV Q4H PRN PRN Reason: Pain , Severe (7-10) Ondansetron HCl (Ondansetron 4 Mg/2 Ml Inj) 4 mg IV Q8H PRN PRN Reason: Nausea And Vomiting Polyethylene Glycol (Polyethylene Glycol 3350 17 Gm Powder) 17 gm PO QDAY PRN PRN Reason: Constipation Sodium Chloride (Sodium Chloride 0.9% 10 Ml Flush Syringe) 10 ml IV BID [facility] Last Admin: 09/30/20 09:18 Dose: 10 ml Documented by: Sodium Chloride (Sodium Chloride 0.9% 10 Ml Flush Syringe) 10 ml IV PRN PRN PRN Reason: LINE FLUSH Mental Status Exam - Vital signs Last Vital Signs Temp 97.6 F 09/30/20 12:00 Pulse 82 09/30/20 13:00 Resp 18 09/30/20 12:00 BP 133/76 09/30/20 13:00 Pulse Ox 98 09/30/20 12:00 Results Result Diagrams: 09/30/20 04:52 09/30/20 04:52 Abnormal lab results 09/29/20 09/30/20 09/30/20 Range/Units 21:29 04:52 04:52 WBC 3.7 L (4.5-11.0) K/mm3 RBC 3.12 L (3.65-5.03) M/mm3 Hgb 11.4 L (11.8-15.2) gm/dl Hct 34.2 L (35.5-45.6) % MCV 109 H (84-94) fl MCH 36 H (28-32) pg RDW 19.9 H (13.2-15.2) % Plt Count 96 L (140-440) K/mm3 Lymph % (Auto) 40.4 H (13.4-35.0) % Tucker % (Auto) 10.9 H (0.0-7.3) % Eos % (Auto) 5.4 H (0.0-4.3) % Seg Neutrophils # 1.5 L (1.8-7.7) K/mm3 BUN 60 H (9-20) mg/dL Creatinine 9.6 H (0.8-1.3) mg/dL POC Glucose 141 H (70-105) mg/dL AST (5-40) units/L ALT (7-56) units/L Total Protein (6.3-8.2) g/dL Albumin (3.9-5) g/dL 09/30/20 Range/Units 04:58 WBC (4.5-11.0) K/mm3 RBC (3.65-5.03) M/mm3 Hgb (11.8-15.2) gm/dl Hct (35.5-45.6) % MCV (84-94) fl MCH (28-32) pg RDW (13.2-15.2) % Plt Count (140-440) K/mm3 Lymph % (Auto) (13.4-35.0) % Tucker % (Auto) (0.0-7.3) % Eos % (Auto) (0.0-4.3) % Seg Neutrophils # (1.8-7.7) K/mm3 BUN (9-20) mg/dL Creatinine (0.8-1.3) mg/dL POC Glucose (70-105) mg/dL AST 65 H (5-40) units/L ALT 150 H (7-56) units/L Total Protein 6.2 L (6.3-8.2) g/dL Albumin 3.2 L (3.9-5) g/dL All other labs normal.
[2020-09-30] MEDS: hydrALAZINE 25 MG TAB PO SCH ×2 (14:23→22:54)
--- NOTE | 2020-09-30 15:15 | Progress Note ---
Assessment and Plan -- Acute metabolic encephalopathy Likely due to uremia and underlying history of dementia CT head without contrast no acute abnormality Neurochecks and supportive care Continue aspirin and statin Continue to provide supportive care Of note patient had prior admission with similar presentation and work-up were essentially normal --Dementia, history of Patient does have history of dementia and apparently is becoming progressive -- Atrial fibrillation with RVR He had some IV diltiazem in the ER with rate control. We will resume routine home medications and monitor EKG. --NSTEMI (non-ST elevated myocardial infarction) type II In the setting of end-stage renal disease Chronic elevation of troponins Echo; EF 40 to 45%, continue aspirin And statin --Chronic systolic CHF, EF 40 to 45% Continue aspirin and statin, volume control with hemodialysis -- ESRD on dialysis Hemodialysis per schedule --Hypertension Continue current antihypertensives --GERD; Protonix 40 mg p.o. daily. --Full CODE STATUS -- DVT prophylaxis: s/p Heparin 5000 units subcu every 8 hours. Daily clinical course: 09/29/20: Patient refused to eat, mental status remain unchanged, does not make any eye contact. Placed on low volume D5 normal saline, monitor clinically. Patient noted to be in normal sinus rhythm on telemetry 09/30/20: Clinically remains unchanged, patient remains lethargic with eyes open and does not cooperate with the exam. Psych consulted, will follow recommendation. We will transfer to telemetry. Follow clinically Subjective Date of service: 09/30/20 Interval history: Patient seen and examined. Medical records and medication list reviewed. No acute event overnight noted by the RN. Patient remains confused and lethargic, does not follow any command Discussed plan of care at bedside with patient's RN. Objective - Exam Narrative Exam: GENERAL: well-developed and well-nourished -Iraqi male lying on bed appeared to be in no discomfort, appears lethargic HEENT: Normocephalic. Atraumatic. No conjunctival congestion or icterus. Patient has moist mucous membranes. NECK: Supple. Trachea midline. CHEST/LUNGS: Clear to auscultated bilaterally, breathing nonlabored. No wheezes crackles or rhonchi. HEART/CARDIOVASCULAR: Regular in rate and rhythm. S1 and S2 positive. ABDOMEN: Abdomen is soft, nontender. Patient has normal bowel sounds. SKIN: There is no rash. Warm and dry. NEURO: Patient with a blind stare, nonverbal, does not follow any command, MUSCULOSKELETAL: No joint effusion or tenderness. EXTRIMITY: No edema, no cyanosis or clubbing. PSYCH: Unable to assess. - Constitutional Vitals: Vital Signs - 12hr 09/30/20 09/30/20 09/30/20 04:00 04:14 05:00 Temperature 97.5 F L Pulse Rate 78 114 H Pulse Rate [ From Monitor] Respiratory 18 26 H Rate Respiratory Rate [ Generalized] Blood Pressure 130/80 130/80 O2 Sat by Pulse 92 94 Oximetry 09/30/20 09/30/20 09/30/20 06:00 07:00 07:30 Temperature 97.5 F L Pulse Rate 82 81 Pulse Rate [ 82 From Monitor] Respiratory 13 16 Rate Respiratory Rate [ Generalized] Blood Pressure 130/82 140/75 O2 Sat by Pulse 100 100 Oximetry 09/30/20 09/30/20 09/30/20 08:00 08:33 09:00 Temperature Pulse Rate 85 95 H 109 H Pulse Rate [ 107 H From Monitor] Respiratory 23 Rate Respiratory Rate [ Generalized] Blood Pressure 144/72 144/72 142/77 O2 Sat by Pulse 98 94 Oximetry 09/30/20 09/30/20 09/30/20 09:18 10:00 11:00 Temperature Pulse Rate 90 80 79 Pulse Rate [ From Monitor] Respiratory Rate Respiratory 20 Rate [ Generalized] Blood Pressure 142/77 142/74 142/74 O2 Sat by Pulse 100 90 Oximetry 09/30/20 09/30/20 09/30/20 12:00 13:00 14:00 Temperature 97.6 F Pulse Rate 82 82 77 Pulse Rate [ 88 From Monitor] Respiratory 18 Rate Respiratory Rate [ Generalized] Blood Pressure 132/81 133/76 122/74 O2 Sat by Pulse 98 Oximetry 09/30/20 14:23 Temperature Pulse Rate 79 Pulse Rate [ From Monitor] Respiratory Rate Respiratory Rate [ Generalized] Blood Pressure 122/74 O2 Sat by Pulse Oximetry - Labs CBC & Chem 7: 10/01/20 19:20 10/02/20 04:58 Labs: Abnormal lab results 09/29/20 09/30/20 09/30/20 Range/Units 21:29 04:52 04:52 WBC 3.7 L (4.5-11.0) K/mm3 RBC 3.12 L (3.65-5.03) M/mm3 Hgb 11.4 L (11.8-15.2) gm/dl Hct 34.2 L (35.5-45.6) % MCV 109 H (84-94) fl MCH 36 H (28-32) pg RDW 19.9 H (13.2-15.2) % Plt Count 96 L (140-440) K/mm3 Lymph % (Auto) 40.4 H (13.4-35.0) % [place] % (Auto) 10.9 H (0.0-7.3) % Eos % (Auto) 5.4 H (0.0-4.3) % Seg Neutrophils # 1.5 L (1.8-7.7) K/mm3 BUN 60 H (9-20) mg/dL Creatinine 9.6 H (0.8-1.3) mg/dL POC Glucose 141 H (70-105) mg/dL AST (5-40) units/L ALT (7-56) units/L Total Protein (6.3-8.2) g/dL Albumin (3.9-5) g/dL 09/30/20 Range/Units 04:58 WBC (4.5-11.0) K/mm3 RBC (3.65-5.03) M/mm3 Hgb (11.8-15.2) gm/dl Hct (35.5-45.6) % MCV (84-94) fl MCH (28-32) pg RDW (13.2-15.2) % Plt Count (140-440) K/mm3 Lymph % (Auto) (13.4-35.0) % [place] % (Auto) (0.0-7.3) % Eos % (Auto) (0.0-4.3) % Seg Neutrophils # (1.8-7.7) K/mm3 BUN (9-20) mg/dL Creatinine (0.8-1.3) mg/dL POC Glucose (70-105) mg/dL AST 65 H (5-40) units/L ALT 150 H (7-56) units/L Total Protein 6.2 L (6.3-8.2) g/dL Albumin 3.2 L (3.9-5) g/dL
--- NOTE | 2020-09-30 17:57 | Electrocardiograph Report ---
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
[2020-09-30] MEDS: MORPHINE 4 MG/1 ML INJ IV PRN (18:15)
[2020-09-30] MEDS: EPOETIN ALFA-EPBX 10,000 UNIT/1 ML VIAL IV PRN (20:40)
[2020-09-30] MEDS: MORPHINE 2 MG/1 ML INJ IV PRN (21:00)
[2020-10-01] MEDS: MORPHINE 2 MG/1 ML INJ IV PRN ×2 (03:18→06:20)
[2020-10-01] MEDS: HEPARIN 5,000 UNIT/1 ML VIAL SUB-Q SCH (05:59)
[2020-10-01] MEDS ORDERED: dilTIAZem 25 MG/5 ML INJ IV NR (06:31)
[2020-10-01] MEDS ORDERED: LORazepam 2 MG/ML VIAL IV NR (06:31)
[2020-10-01] MEDS: hydrALAZINE 25 MG TAB PO SCH (08:53)
[2020-10-01] MEDS: METOPROLOL TARTRATE 50 MG TAB PO SCH (10:54)
[2020-10-01] MEDS ORDERED: DEXTROSE 50% IN WATER (25GM) 50 ML VIAL IV PRN (11:33)
[2020-10-01] MEDS: METOPROLOL TARTRATE 5 MG/5 ML INJ IV SCH ×3 (12:10→18:18)
[2020-10-01] MEDS: DEXTROSE 50% IN WATER (25GM) 50 ML SYRINGE IV PRN ×2 (12:19→16:17)
--- NOTE | 2020-10-01 12:29 | Event Note ---
Date: 10/01/20 Patient was seen sleeping; unable to assess. Per nurse, patient received Ativan IM.
--- NOTE | 2020-10-01 12:58 | Consultation ---
<EDITA TEJEDA - Last Filed: 10/01/20 15:00> History of Present Illness Consult date: 10/01/20 Requesting physician: VINAYAK CHESTER Consult reason: atrial fibrillation History of present illness: The pt is a 70 y/o male with a past medical history of ESRD on HD, aortic stenosis, HTN, DM. Patient is currently has AMS and thus history is obtained from notes. He has been seen by our practice on prior hospitalization, noncompliant with OP follow up. He presented with changes in mental status, nausea, vomiting and shortness of breath. The patient's family noticed his confusion and brought him to the ED. As per previous notes the patient was missed his HD due to n/v and was noted to be in Afib with RVR in the 140s and was given IV diltiazem which improved patient heart rate. As per echo done 06/2020 showed EF 40-45%, severely calcified AV with moderate , mild AR, mild MR, severe TR, severely dilated LA, and RA mild to mod dilated. Lexiscan MPI stress test done 11/2018 was negative. . Past History Past Medical History: anemia, diabetes, dialysis (M,W,F), ESRD, hypertension, stroke, other (Dementia) Past Surgical History: Other (Left upper arm fistula.) Social history: other (Former smoker) Family history: no significant family history Medications and Allergies Allergies Allergy/AdvReac Type Severity Reaction Status Date / Time No Known Allergies Allergy Verified 09/28/20 20:06 Home Medications Medication Instructions Recorded Confirmed Last Taken Type Epoetin Blayne 10,000 Unit [Procrit] 10,000 unit IV NINO PRN #1 vial 12/02/18 02/05/20 11/20/19 10:00 Rx HYDROcodone/APAP 5-325 [[place] 1 each PO Q6H PRN tablet 11/22/19 02/05/20 Unknown Rx 5-325 mg TAB] polyethylene glycoL 3350 [Miralax 17 gm PO QDAY PRN #30 powd.pack 11/22/19 02/05/20 Unknown Rx 3350] Acetaminophen [Acetaminophen TAB] 650 mg PO Q4H PRN tablet 02/08/20 Unknown Rx Aspirin 325 mg PO QDAY #30 tablet 09/20/20 Unknown Rx AtorvaSTATin [Lipitor] 40 mg PO QHS #30 tablet 09/20/20 Unknown Rx Famotidine [Pepcid] 10 mg PO BID #60 tablet 09/20/20 Unknown Rx Ferric Citrate (Nf) [Auryxia] 420 mg PO TID #90 tab 09/20/20 Unknown Rx Metoprolol [Lopressor TAB] 50 mg PO BID #60 tablet 09/20/20 Unknown Rx amLODIPine 5 mg PO QDAY #30 tablet 09/20/20 Unknown Rx hydrALAZINE [Apresoline TAB] 50 tab PO TID #180 tablet 09/20/20 Unknown Rx Active Meds: Active Medications Acetaminophen (Acetaminophen 325 Mg Tab) 650 mg PO Q6H PRN PRN Reason: Pain MILD(1-3)/Fever >100.5/RUIZ Hydrocodone Bitart/Acetaminophen (Hydrocodone/Acetaminophen 5-325 Mg Tab) 1 each PO Q6H PRN PRN Reason: Pain , Severe (7-10) Last Admin: 09/29/20 22:12 Dose: 1 each Documented by: Albumin Human (Albumin Human 25% (25 Gm/100 Ml) Inj) 25 gm IV NINO PRN PRN Reason: Hypotension Amlodipine Besylate (Amlodipine 5 Mg Tab) 5 mg PO QDAY [facility] Last Admin: 09/30/20 09:18 Dose: 5 mg Documented by: Apixaban (Apixaban 5 Mg Tab) 5 mg PO Q12HR [facility]; Protocol Aspirin (Aspirin 325 Mg Tab) 325 mg PO QDAY [facility] Last Admin: 09/30/20 09:18 Dose: 325 mg Documented by: Atorvastatin Calcium (Atorvastatin 40 Mg Tab) 40 mg PO QHS [facility] Last Admin: 09/30/20 22:55 Dose: 40 mg Documented by: Dextrose (Dextrose 50% In Water (25gm) 50 Ml Syringe) 50 ml IV Q30MIN PRN; Protocol PRN Reason: HYPOGLYCEMIA Last Admin: 10/01/20 12:19 Dose: 15 ml Documented by: Famotidine (Famotidine 10 Mg Tab) 10 mg PO BID [facility] Last Admin: 09/30/20 22:54 Dose: 10 mg Documented by: Dextrose/Sodium Chloride (D5ns) 1,000 mls @ 42 mls/hr IV DIRECT [facility] Last Admin: 09/30/20 12:35 Dose: 42 mls/hr Documented by: Sodium Chloride (Nacl 0.9%) 100 mls @ 999 mls/hr IV NINO PRN PRN Reason: Hypotension Magnesium Hydroxide (Magnesium Hydroxide (Mom) Oral Liqd Udc) 30 ml PO Q4H PRN PRN Reason: Constipation Metoprolol Tartrate (Metoprolol Tartrate 5 Mg/5 Ml Inj) 5 mg IV Q6HR [facility] Last Admin: 10/01/20 12:10 Dose: 5 mg Documented by: Morphine Sulfate (Morphine 2 Mg/1 Ml Inj) 2 mg IV Q4H PRN PRN Reason: Pain, Moderate (4-6) Last Admin: 10/01/20 06:20 Dose: 2 mg Documented by: Morphine Sulfate (Morphine 4 Mg/1 Ml Inj) 4 mg IV Q4H PRN PRN Reason: Pain , Severe (7-10) Last Admin: 09/30/20 18:15 Dose: 4 mg Documented by: Ondansetron HCl (Ondansetron 4 Mg/2 Ml Inj) 4 mg IV Q8H PRN PRN Reason: Nausea And Vomiting Polyethylene Glycol (Polyethylene Glycol 3350 17 Gm Powder) 17 gm PO QDAY PRN PRN Reason: Constipation Sodium Chloride (Sodium Chloride 0.9% 10 Ml Flush Syringe) 10 ml IV BID [facility] Last Admin: 10/01/20 12:20 Dose: 10 ml Documented by: Sodium Chloride (Sodium Chloride 0.9% 10 Ml Flush Syringe) 10 ml IV PRN PRN PRN Reason: LINE FLUSH Last Admin: 10/01/20 06:20 Dose: 10 ml Documented by: Review of Systems ROS unobtainable: due to mental status Physical Examination Vital Signs Temp Pulse Resp BP Pulse Ox 98.2 F 142 H 43 H 158/106 83 L 09/28/20 19:30 09/28/20 19:30 09/28/20 19:30 09/28/20 19:30 09/28/20 19:30 General appearance: no acute distress Cardiac: Positive: irregularly irregular, Systolic Murmur Lungs: Positive: Normal Breath Sounds Neuro: Positive: Grossly Intact Abdomen: Positive: Unremarkable, Soft Skin: Negative: Rash, Wound Musculoskeletal: No Pain Extremities: Present: upper extr. pulses, lower extr. pulses, edema, +1 Edema Results 09/30/20 04:52 09/30/20 04:52 - Imaging and Cardiology EKG: report reviewed, image reviewed - EKG Interpretation EKG shows: atrial fibrillation EKG interpretations - Telemetry EKG Rhythm: Atrial Fibrillation - EKG Supraventricular dysrhythmia: atrial fibrillation Assessment and Plan AFIB with RVR * Patient started on Eliquis for anticoagulation * Patient scheduled for TTE * continue to monitor on telemetry * Repeat CBC in AM Aortic Stenosis * Aortic valve severely calcified * Echo on 06/2020 moderate with mild aortic regurgitation * Volume control will be managed by nephrology due to patient on HD HTN * Optimize antihypertensive regimen. Resume home medications metoprolol 50mg PO BID and amlodipine 5mg PO Qday DVT Prophylaxis * Patient is on Eliquis for oral anticoagulation Patient seen in conjuction with who agrees with this assessment and plan. Will continue to follow <TETE EDOUARD R - Last Filed: 10/02/20 09:23> Medications and Allergies Active Meds: Active Medications Acetaminophen (Acetaminophen 325 Mg Tab) 650 mg PO Q6H PRN PRN Reason: Pain MILD(1-3)/Fever >100.5/RUIZ Hydrocodone Bitart/Acetaminophen (Hydrocodone/Acetaminophen 5-325 Mg Tab) 1 each PO Q6H PRN PRN Reason: Pain , Severe (7-10) Last Admin: 09/29/20 22:12 Dose: 1 each Documented by: Albumin Human (Albumin Human 25% (25 Gm/100 Ml) Inj) 25 gm IV NION PRN PRN Reason: Hypotension Amlodipine Besylate (Amlodipine 5 Mg Tab) 5 mg PO QDAY [facility] Last Admin: 10/01/20 13:15 Dose: 5 mg Documented by: Apixaban (Apixaban 5 Mg Tab) 5 mg PO Q12HR [facility]; Protocol Last Admin: 10/01/20 22:22 Dose: 5 mg Documented by: Aspirin (Aspirin 325 Mg Tab) 325 mg PO QDAY [facility] Last Admin: 10/01/20 13:16 Dose: 325 mg Documented by: Atorvastatin Calcium (Atorvastatin 40 Mg Tab) 40 mg PO QHS [facility] Last Admin: 10/01/20 22:22 Dose: 40 mg Documented by: Dextrose (Dextrose 50% In Water (25gm) 50 Ml Syringe) 50 ml IV Q30MIN PRN; Protocol PRN Reason: HYPOGLYCEMIA Last Admin: 10/01/20 16:17 Dose: 20 ml Documented by: Famotidine (Famotidine 10 Mg Tab) 10 mg PO BID [facility] Last Admin: 10/01/20 22:21 Dose: 10 mg Documented by: Sodium Chloride (Nacl 0.9%) 100 mls @ 999 mls/hr IV NINO PRN PRN Reason: Hypotension Dextrose (D10w) 1,000 mls @ 42 mls/hr IV DIRECT [facility] Last Admin: 10/01/20 16:19 Dose: 42 mls/hr Documented by: Magnesium Hydroxide (Magnesium Hydroxide (Mom) Oral Liqd Udc) 30 ml PO Q4H PRN PRN Reason: Constipation Metoprolol Tartrate (Metoprolol Tartrate 5 Mg/5 Ml Inj) 5 mg IV Q6HR [facility] Last Admin: 10/02/20 06:28 Dose: 5 mg Documented by: Morphine Sulfate (Morphine 2 Mg/1 Ml Inj) 2 mg IV Q4H PRN PRN Reason: Pain, Moderate (4-6) Last Admin: 10/01/20 06:20 Dose: 2 mg Documented by: Morphine Sulfate (Morphine 4 Mg/1 Ml Inj) 4 mg IV Q4H PRN PRN Reason: Pain , Severe (7-10) Last Admin: 09/30/20 18:15 Dose: 4 mg Documented by: Ondansetron HCl (Ondansetron 4 Mg/2 Ml Inj) 4 mg IV Q8H PRN PRN Reason: Nausea And Vomiting Polyethylene Glycol (Polyethylene Glycol 3350 17 Gm Powder) 17 gm PO QDAY PRN PRN Reason: Constipation Sodium Chloride (Sodium Chloride 0.9% 10 Ml Flush Syringe) 10 ml IV BID [facility] Last Admin: 10/01/20 22:22 Dose: 10 ml Documented by: Sodium Chloride (Sodium Chloride 0.9% 10 Ml Flush Syringe) 10 ml IV PRN PRN PRN Reason: LINE FLUSH Last Admin: 10/02/20 06:37 Dose: 10 ml Documented by: Physical Examination Vital Signs Temp Pulse Resp BP Pulse Ox 98.2 F 142 H 43 H 158/106 83 L 09/28/20 19:30 09/28/20 19:30 09/28/20 19:30 09/28/20 19:30 09/28/20 19:30 Results 10/01/20 19:20 10/02/20 04:58 Coagulation 10/01/20 Range/Units 19:20 PT 14.7 (12.2-14.9) Sec. INR 1.10 (0.87-1.13) APTT 33.4 (24.2-36.6) Sec. CBC 10/01/20 Range/Units 19:20 WBC 4.2 L (4.5-11.0) K/mm3 RBC 3.45 L (3.65-5.03) M/mm3 Hgb 12.4 (11.8-15.2) gm/dl Hct 37.4 (35.5-45.6) % Plt Count 145 (140-440) K/mm3 Comprehensive Metabolic Panel 10/01/20 10/02/20 Range/Units 19:20 04:58 Sodium 142 (137-145) mmol/L Potassium 3.8 (3.6-5.0) mmol/L Chloride 103.4 (98-107) mmol/L Carbon Dioxide 24 (22-30) mmol/L BUN 39 H (9-20) mg/dL Creatinine 6.9 H 7.4 H (0.8-1.3) mg/dL Glucose 96 (75-100) mg/dL Calcium 9.4 (8.4-10.2) mg/dL Assessment and Plan - Patient Problems (1) ESRD on dialysis Current Visit: Yes Status: Chronic
[2020-10-01] MEDS: amLODIPine 5 MG TAB PO SCH (13:15)
[2020-10-01] MEDS: FAMOTIDINE 10 MG TAB PO SCH ×2 (13:16→22:21)
[2020-10-01] MEDS: ASPIRIN 325 MG TAB PO SCH (13:16)
[2020-10-01] MEDS: APIXABAN 5 MG TAB PO SCH ×2 (13:17→22:22)
--- NOTE | 2020-10-01 15:03 | Progress Note ---
Assessment and Plan -- Acute metabolic encephalopathy Likely due to uremia and underlying history of dementia CT head without contrast no acute abnormality Neurochecks and supportive care Continue aspirin and statin Continue to provide supportive care Of note patient had prior admission with similar presentation and work-up were essentially normal --Dementia, history of Patient does have history of dementia and apparently is becoming progressive -- Atrial fibrillation with RVR He had some IV diltiazem in the ER with rate control. We will resume routine home medications and monitor EKG. --NSTEMI (non-ST elevated myocardial infarction) type II In the setting of end-stage renal disease Chronic elevation of troponins Echo; EF 40 to 45%, continue aspirin And statin --Chronic systolic CHF, EF 40 to 45% Continue aspirin and statin, volume control with hemodialysis -- ESRD on dialysis Hemodialysis per schedule --Hypertension Continue current antihypertensives --GERD; Protonix 40 mg p.o. daily. --Full CODE STATUS -- DVT prophylaxis: s/p Heparin 5000 units subcu every 8 hours. Daily clinical course: 09/29/20: Patient refused to eat, mental status remain unchanged, does not make any eye contact. Placed on low volume D5 normal saline, monitor clinically. Patient noted to be in normal sinus rhythm on telemetry 09/30/20: Clinically remains unchanged, patient remains lethargic with eyes open and does not cooperate with the exam. Psych consulted, will follow recommendation. We will transfer to telemetry. Follow clinically 10/01/20; patient again flipped back to atrial fibrillation today, cardiology consulted, started on Eliquis twice daily. Patient remains confused and lethargic. Continue supportive care. Hypoglycemia protocol as patient with low oral intake. Continue D5 normal saline-if continues to be hypoglycemic may need to change to D10. Subjective Date of service: 10/01/20 Interval history: Patient seen and examined. Medical records and medication list reviewed. No acute event overnight noted by the RN. Patient remains lethargic but does make eye contact today but will not speak Discussed plan of care at bedside with patient's RN. Objective - Exam Narrative Exam: GENERAL: well-developed and well-nourished -[place] male lying on bed appeared to be in no discomfort, appears lethargic HEENT: Normocephalic. Atraumatic. No conjunctival congestion or icterus. Patient has moist mucous membranes. NECK: Supple. Trachea midline. CHEST/LUNGS: Clear to auscultated bilaterally, breathing nonlabored. No wheezes crackles or rhonchi. HEART/CARDIOVASCULAR: Regular in rate and rhythm. S1 and S2 positive. ABDOMEN: Abdomen is soft, nontender. Patient has normal bowel sounds. SKIN: There is no rash. Warm and dry. NEURO: Patient makes eye contact today but will not speak, does not follow any command, MUSCULOSKELETAL: No joint effusion or tenderness. EXTRIMITY: No edema, no cyanosis or clubbing. PSYCH: Unable to assess. - Constitutional Vitals: Vital Signs - 12hr 10/01/20 10/01/20 10/01/20 03:23 04:00 07:31 Temperature 96.8 F L 97.7 F Pulse Rate 100 H 102 H Pulse Rate [ From Monitor] Respiratory 16 16 Rate Blood Pressure 129/80 Blood Pressure 125/78 [Left] O2 Sat by Pulse 96 92 Oximetry 10/01/20 10/01/20 10/01/20 08:00 08:53 10:54 Temperature Pulse Rate 108 H 102 H 102 H Pulse Rate [ From Monitor] Respiratory Rate Blood Pressure 125/78 125/78 Blood Pressure [Left] O2 Sat by Pulse Oximetry 10/01/20 10/01/20 10/01/20 11:23 11:38 12:00 Temperature 97.0 F L Pulse Rate 95 H 102 H Pulse Rate [ 102 H From Monitor] Respiratory 18 17 Rate Blood Pressure 124/75 Blood Pressure [Left] O2 Sat by Pulse 96 97 Oximetry 10/01/20 10/01/20 12:10 13:15 Temperature Pulse Rate 108 H 108 H Pulse Rate [ From Monitor] Respiratory Rate Blood Pressure 120/68 120/68 Blood Pressure [Left] O2 Sat by Pulse Oximetry - Labs CBC & Chem 7: 10/01/20 19:20 10/02/20 04:58 Labs: Abnormal lab results 10/01/20 Range/Units 11:23 POC Glucose 64 L (70-105) mg/dL
[2020-10-01] MEDS: DEXTROSE 10% IN WATER 1,000 ML IV SCH (16:19)
[2020-10-01 19:52] LABS: INR 1.1 (0.87-1.13)
[2020-10-01 19:53] LABS: Partial Thromboplastin Time 33.4 Sec. (24.2-36.6)
[2020-10-01 20:14] LABS: Hematocrit 37.4 % (35.5-45.6); Hemoglobin 12.4 gm/dl (11.8-15.2); Mean Corpuscular HGB Conc 33 % (32-34); Mean Corpuscular Volume 108 fl (84-94); Platelet Count 145 K/mm3 (140-440); Red Blood Count 3.45 M/mm3 (3.65-5.03)
[2020-10-01 20:17] LABS: Red Cell Distribution Width 20.3 % (13.2-15.2)
[2020-10-02] MEDS: METOPROLOL TARTRATE 5 MG/5 ML INJ IV SCH ×3 (01:00→11:05)
[2020-10-02 06:01] LABS: Calcium 9.4 mg/dL (8.4-10.2)
--- NOTE | 2020-10-02 09:47 | Progress Note ---
Assessment and Plan - Patient Problems (1) Metabolic encephalopathy Current Visit: Yes Status: Acute Plan to address problem: In the setting of missed HD treatments. Will dialyze and monitor mentation changes. Discussed with primary RN, who states that patient is better this am but is refusing to eat or interact. He may benefit for behavioral assessment and screen for depression. Overall mentation stable. (2) Hypervolemia Current Visit: Yes Status: Chronic Plan to address problem: Will optimize with UF during HD treatments. Plan to place on MWF inpatient HD schedule, and will assess for additional needs of sequential UF treatment. 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 (4) Atrial fibrillation with RVR Current Visit: Yes Status: Acute Plan to address problem: Rate control per cardiology. (5) ESRD on dialysis Current Visit: Yes Status: Chronic Plan to address problem: Maintain on inpatient MWF HD schedule. Orders placed. (6) Anemia in chronic kidney disease (CKD) Current Visit: No Status: Chronic Qualifiers: Chronic kidney disease stage: on chronic dialysis Qualified Code(s): N18.6 - End stage renal disease; D63.1 - Anemia in chronic kidney disease; Z99.2 - Dependence on renal dialysis Plan to address problem: H/H levels are stable, and there is no acute needs for BRIDGET therapy. Will monitor closely. Subjective Date of service: 10/02/20 Interval history: No acute changes from renal standpoint. Appetite remains poor, overall mentation similar with poor engagement in examination and unwillingness to eat. Objective - Vital Signs Vital signs: Vital Signs - 12hr 10/01/20 10/02/20 10/02/20 23:09 01:00 03:32 Temperature 97.6 F 97.5 F L Pulse Rate 142 H 96 H Respiratory 18 20 Rate Blood Pressure 142/112 142/112 133/82 O2 Sat by Pulse 92 98 Oximetry 10/02/20 10/02/20 06:28 07:45 Temperature 96.6 F L Pulse Rate 84 77 Respiratory 20 Rate Blood Pressure 133/76 O2 Sat by Pulse 98 Oximetry - General Appearance General appearance: chronically ill EENT: ATNC Neck: no JVD Respiratory: Present: Clear to Ascultation Cardiology: irregularly irregular Gastrointestinal: normal Integumentary: no rash Neurologic: confused Musculoskeletal: deferred Psychiatric: depressed - Lab 10/01/20 19:20 10/02/20 04:58 Most recent lab results Calcium 9.4 mg/dL (8.4-10.2) 10/02/20 04:58 - Allied health notes Allied health notes reviewed: nursing Medications & Allergies - Medications Allergies/Adverse Reactions: Allergies No Known Allergies Allergy (Verified 09/28/20 20:06) Home Medications: Home Medications Medication Instructions Recorded Confirmed Last Taken Type Epoetin Blayne 10,000 Unit [Procrit] 10,000 unit IV NINO PRN #1 vial 12/02/18 02/05/20 11/20/19 10:00 Rx HYDROcodone/APAP 5-325 [Slaughter 1 each PO Q6H PRN tablet 11/22/19 02/05/20 Unknown Rx 5-325 mg TAB] polyethylene glycoL 3350 [Miralax 17 gm PO QDAY PRN #30 powd.pack 11/22/19 02/05/20 Unknown Rx 3350] Acetaminophen [Acetaminophen TAB] 650 mg PO Q4H PRN tablet 02/08/20 Unknown Rx Aspirin 325 mg PO QDAY #30 tablet 09/20/20 Unknown Rx AtorvaSTATin [Lipitor] 40 mg PO QHS #30 tablet 09/20/20 Unknown Rx Famotidine [Pepcid] 10 mg PO BID #60 tablet 09/20/20 Unknown Rx Ferric Citrate (Nf) [Auryxia] 420 mg PO TID #90 tab 09/20/20 Unknown Rx Metoprolol [Lopressor TAB] 50 mg PO BID #60 tablet 09/20/20 Unknown Rx amLODIPine 5 mg PO QDAY #30 tablet 09/20/20 Unknown Rx hydrALAZINE [Apresoline TAB] 50 tab PO TID #180 tablet 09/20/20 Unknown Rx Active Medications: Generic Name Dose Route Start Last Admin Trade Name Freq PRN Reason Stop Dose Admin Acetaminophen 650 mg 09/28/20 22:32 Acetaminophen 325 Mg Tab PO Q6H PRN Pain MILD(1-3)/Fever >100.5/RUIZ Hydrocodone Bitart/Acetaminophen 1 each 09/29/20 04:55 09/29/20 22:12 Hydrocodone/Acetaminophen 5-325 Mg Tab PO 1 each Q6H PRN Administration Pain , Severe (7-10) Albumin Human 25 gm 09/28/20 21:12 Albumin Human 25% (25 Gm/100 Ml) Inj IV NINO PRN Hypotension Amlodipine Besylate 5 mg 09/29/20 10:00 10/01/20 13:15 Amlodipine 5 Mg Tab PO 5 mg QDAY BECKIE Administration Apixaban 5 mg 10/01/20 13:00 10/01/20 22:22 Apixaban 5 Mg Tab PO 5 mg Q12HR BECKIE Administration Protocol Aspirin 325 mg 09/29/20 10:00 10/01/20 13:16 Aspirin 325 Mg Tab PO 325 mg QDAY BECKIE Administration Atorvastatin Calcium 40 mg 09/30/20 22:00 10/01/20 22:22 Atorvastatin 40 Mg Tab PO 40 mg QHS BECKIE Administration Dextrose 50 ml 10/01/20 11:57 10/01/20 16:17 Dextrose 50% In Water (25gm) 50 Ml Syringe IV 20 ml Q30MIN PRN Administration HYPOGLYCEMIA Protocol Famotidine 10 mg 09/29/20 10:00 10/01/20 22:21 Famotidine 10 Mg Tab PO 10 mg BID BECKIE Administration Sodium Chloride 100 mls @ 999 mls/hr 09/30/20 07:30 Nacl 0.9% IV NINO PRN Hypotension Dextrose 1,000 mls @ 42 mls/hr 10/01/20 16:00 10/01/20 16:19 D10w IV 42 mls/hr DIRECT BECKIE Administration Magnesium Hydroxide 30 ml 09/28/20 22:32 Magnesium Hydroxide (Mom) Oral Liqd Udc PO Q4H PRN Constipation Metoprolol Tartrate 5 mg 10/01/20 12:00 10/02/20 06:28 Metoprolol Tartrate 5 Mg/5 Ml Inj IV 5 mg Q6HR BECKIE Administration Morphine Sulfate 2 mg 09/28/20 22:32 10/01/20 06:20 Morphine 2 Mg/1 Ml Inj IV 2 mg Q4H PRN Administration Pain, Moderate (4-6) Morphine Sulfate 4 mg 09/28/20 22:32 09/30/20 18:15 Morphine 4 Mg/1 Ml Inj IV 4 mg Q4H PRN Administration Pain , Severe (7-10) Ondansetron HCl 4 mg 09/28/20 22:32 Ondansetron 4 Mg/2 Ml Inj IV Q8H PRN Nausea And Vomiting Polyethylene Glycol 17 gm 09/29/20 04:55 Polyethylene Glycol 3350 17 Gm Powder PO QDAY PRN Constipation Sodium Chloride 10 ml 09/29/20 10:00 10/01/20 22:22 Sodium Chloride 0.9% 10 Ml Flush Syringe IV 10 ml BID BECKIE Administration Sodium Chloride 10 ml 09/28/20 22:26 10/02/20 06:37 Sodium Chloride 0.9% 10 Ml Flush Syringe IV 10 ml PRN PRN Administration LINE FLUSH
[2020-10-02] MEDS: amLODIPine 5 MG TAB PO SCH (11:06)
[2020-10-02] MEDS: APIXABAN 5 MG TAB PO SCH ×2 (11:07→21:48)
[2020-10-02] MEDS: FAMOTIDINE 10 MG TAB PO SCH ×2 (11:07→21:48)
[2020-10-02] MEDS: ASPIRIN 325 MG TAB PO SCH (11:07)
--- NOTE | 2020-10-02 11:08 | Progress Note ---
Assessment and Plan AFIB with RVR * Heart Rate appears to be controlled on metoprolol 5mg IV Q6 * Continue Eliquis for anticoagulation * Continue to monitor on telemetry * Repeat CBC in AM Cardiomyopathy * Echo 07/13/2020 shows EF40-45%. LV is normal, LVSF mild to moderately decreased with LVH. LA severely dilated. RA modereately dilated. Moderate aortic Stenosi s,mild aortic regurgitation, moderate mitral regurgitation. Severe tricuspid regurgitation and mild pulmonic regurgitation. aortic mean gradient 26.9 mmHG Aortic Stenosis * Aortic valve severely calcified * Volume control will be managed by nephrology due to patient on HD HTN * Optimize antihypertensive regimen. Continue amlodipine 5mg PO Qday DVT Prophylaxis * Patient is on Eliquis for oral anticoagulation Patient seen in conjuction with who agrees with this assessment and plan. Will continue to follow Subjective Date of service: 10/02/20 Principal diagnosis: AFIB Interval history: Patient is sitting in bed with AMS. Afib in the 80s with PVCs on tele Objective Last Vital Signs Temp 96.6 F L 10/02/20 07:45 Pulse 106 H 10/02/20 11:06 Resp 20 10/02/20 07:45 BP 133/76 10/02/20 07:45 Pulse Ox 98 10/02/20 07:45 - Physical Examination General: No Apparent Distress Neck: Positive: neck supple Cardiac: Positive: irregularly irregular Lungs: Positive: Normal Breath Sounds Neuro: Positive: Grossly Intact Abdomen: Positive: Unremarkable, Soft Skin: Negative: Rash, Wound Musculoskeletal: No Pain Extremities: Present: upper extr. pulses, lower extr. pulses, edema, +1 Edema - Labs and Meds Coagulation 10/01/20 Range/Units 19:20 PT 14.7 (12.2-14.9) Sec. INR 1.10 (0.87-1.13) APTT 33.4 (24.2-36.6) Sec. CBC 10/01/20 Range/Units 19:20 WBC 4.2 L (4.5-11.0) K/mm3 RBC 3.45 L (3.65-5.03) M/mm3 Hgb 12.4 (11.8-15.2) gm/dl Hct 37.4 (35.5-45.6) % Plt Count 145 (140-440) K/mm3 Comprehensive Metabolic Panel 10/01/20 10/02/20 Range/Units 19:20 04:58 Sodium 142 (137-145) mmol/L Potassium 3.8 (3.6-5.0) mmol/L Chloride 103.4 (98-107) mmol/L Carbon Dioxide 24 (22-30) mmol/L BUN 39 H (9-20) mg/dL Creatinine 6.9 H 7.4 H (0.8-1.3) mg/dL Glucose 96 (75-100) mg/dL Calcium 9.4 (8.4-10.2) mg/dL - Imaging and Cardiology EKG: report reviewed, image reviewed Echo: report reviewed - Telemetry EKG Rhythm: Atrial Fibrillation (with PVCs) - EKG Supraventricular dysrhythmia: atrial fibrillation - Allied health notes Allied health notes reviewed: nursing
--- NOTE | 2020-10-02 15:02 | Progress Note ---
Assessment and Plan -- Acute metabolic encephalopathy Likely due to uremia and underlying history of dementia CT head without contrast no acute abnormality Neurochecks and supportive care Continue aspirin and statin Continue to provide supportive care Of note patient had prior admission with similar presentation and work-up were essentially normal --Dementia, history of Patient does have history of dementia and apparently is becoming progressive -- Atrial fibrillation with RVR He had some IV diltiazem in the ER with rate control. We will resume routine home medications and monitor EKG. --NSTEMI (non-ST elevated myocardial infarction) type II In the setting of end-stage renal disease Chronic elevation of troponins Echo; EF 40 to 45%, continue aspirin And statin --Chronic systolic CHF, EF 40 to 45% Continue aspirin and statin, volume control with hemodialysis --Recurrent hypoglycemia due to poor oral intake Patient placed on D10W -- ESRD on dialysis Hemodialysis per schedule --Hypertension Continue current antihypertensives --GERD; Protonix 40 mg p.o. daily. --Full CODE STATUS -- DVT prophylaxis: s/p Heparin 5000 units subcu every 8 hours. Daily clinical course: 09/29/20: Patient refused to eat, mental status remain unchanged, does not make any eye contact. Placed on low volume D5 normal saline, monitor clinically. Patient noted to be in normal sinus rhythm on telemetry 09/30/20: Clinically remains unchanged, patient remains lethargic with eyes open and does not cooperate with the exam. Psych consulted, will follow recommendation. We will transfer to telemetry. Follow clinically 10/01/20; patient again flipped back to atrial fibrillation today, cardiology consulted, started on Eliquis twice daily. Patient remains confused and lethargic. Continue supportive care. Hypoglycemia protocol as patient with low oral intake. Continue D5 normal saline-if continues to be hypoglycemic may need to change to D10. 10/02/20: Patient more alert and verbal today. But remains confused. Oriented to person only. Discussed plan of care with case management and patient's caregiver. Patient dementia seems to be worsening, and requires more supportive care. Caregiver requesting for detention placement. [employer] notified and working on placement. Speech therapy evaluated the patient, will start on pured diet. Follow CBC BMP. Subjective Date of service: 10/02/20 Principal diagnosis: AFIB Objective - Exam Narrative Exam: GENERAL: well-developed and well-nourished -[place]ish male lying on bed appeared to be in no discomfort, more alert and oriented today HEENT: Normocephalic. Atraumatic. No conjunctival congestion or icterus. Patient has moist mucous membranes. NECK: Supple. Trachea midline. CHEST/LUNGS: Clear to auscultated bilaterally, breathing nonlabored. No wheezes crackles or rhonchi. HEART/CARDIOVASCULAR: Regular in rate and rhythm. S1 and S2 positive. ABDOMEN: Abdomen is soft, nontender. Patient has normal bowel sounds. SKIN: There is no rash. Warm and dry. NEURO: Patient able to answer questions but disoriented, follow commands, no focal deficits MUSCULOSKELETAL: No joint effusion or tenderness. EXTRIMITY: No edema, no cyanosis or clubbing. PSYCH: Cooperative. - Constitutional Vitals: Vital Signs - 12hr 10/02/20 10/02/20 10/02/20 03:32 06:28 07:45 Temperature 97.5 F L 96.6 F L Pulse Rate 96 H 84 77 Respiratory 20 20 Rate Blood Pressure 133/82 133/76 O2 Sat by Pulse 98 98 Oximetry 10/02/20 10/02/20 11:05 11:06 Temperature Pulse Rate 106 H 106 H Respiratory Rate Blood Pressure O2 Sat by Pulse Oximetry - Labs CBC & Chem 7: 10/01/20 19:20 10/02/20 04:58 Labs: Abnormal lab results 10/01/20 10/01/20 10/01/20 Range/Units 16:15 19:20 19:20 WBC 4.2 L (4.5-11.0) K/mm3 RBC 3.45 L (3.65-5.03) M/mm3 MCV 108 H (84-94) fl MCH 36 H (28-32) pg RDW 20.3 H (13.2-15.2) % BUN (9-20) mg/dL Creatinine 6.9 H (0.8-1.3) mg/dL POC Glucose 54 L (70-105) mg/dL 10/02/20 10/02/20 Range/Units 04:58 11:28 WBC (4.5-11.0) K/mm3 RBC (3.65-5.03) M/mm3 MCV (84-94) fl MCH (28-32) pg RDW (13.2-15.2) % BUN 39 H (9-20) mg/dL Creatinine 7.4 H (0.8-1.3) mg/dL POC Glucose 67 L (70-105) mg/dL
[2020-10-02] MEDS: EPOETIN ALFA-EPBX 10,000 UNIT/1 ML VIAL IV PRN (18:33)
[2020-10-02] MEDS: DEXTROSE 10% IN WATER 1,000 ML IV SCH (21:48)
[2020-10-03] MEDS: METOPROLOL TARTRATE 5 MG/5 ML INJ IV SCH ×3 (00:36→07:37)
[2020-10-03 05:45] LABS: Hemoglobin 13.2 gm/dl (11.8-15.2); Mean Corpuscular HGB Conc 34 % (32-34); Mean Corpuscular Volume 108 fl (84-94); Platelet Count 139 K/mm3 (140-440); Red Cell Distribution Width 19.5 % (13.2-15.2)
[2020-10-03] MEDS: FAMOTIDINE 10 MG TAB PO SCH ×2 (09:45→21:44)
[2020-10-03] MEDS: ASPIRIN 325 MG TAB PO SCH (09:46)
[2020-10-03] MEDS: APIXABAN 5 MG TAB PO SCH ×2 (09:46→21:44)
[2020-10-03] MEDS: amLODIPine 5 MG TAB PO SCH (09:46)
--- NOTE | 2020-10-03 09:51 | Progress Note ---
Assessment and Plan AFIB with RVR * Continue Eliquis for anticoagulation * Continue to monitor on telemetry * Repeat CBC in AM Cardiomyopathy * Echo 07/13/2020 shows EF40-45%. LV is normal, LVSF mild to moderately decreased with LVH. LA severely dilated. RA modereately dilated. Moderate aortic Stenosis,mild aortic regurgitation, moderate mitral regurgitation. Severe tricuspid regurgitation and mild pulmonic regurgitation. aortic mean gradient 26.9 mmHG Aortic Stenosis * Aortic valve severely calcified * Volume control will be managed by nephrology due to patient on HD HTN * Optimize antihypertensive regimen. Continue amlodipine 5mg PO Qday * Initiate metoprolol 12.5mg BID PO and metoprolol 5mg IV PRN DVT Prophylaxis * Patient is on Eliquis for oral anticoagulation Patient stable from cardiac standpoint. Ok to discharge to SNF from cards standpoint Patient seen in conjuction with who agrees with this assessment and plan. Will continue to follow - Patient Problems (1) Atrial fibrillation with RVR Current Visit: Yes Status: Acute (2) Metabolic encephalopathy Current Visit: Yes Status: Acute (3) Altered mental state Current Visit: No Status: Acute (4) CVA (cerebral vascular accident) Current Visit: No Status: Acute (5) Dementia Current Visit: No Status: Acute Subjective Date of service: 10/03/20 Principal diagnosis: AFIB Interval history: Patient is sitting in bed with AMS. Afib in the 110s with PVCs on tele Objective Last Vital Signs Temp 98 F 10/03/20 04:20 Pulse 70 10/03/20 09:46 Resp 20 10/03/20 00:13 BP 133/82 10/03/20 09:46 Pulse Ox 99 10/02/20 15:00 - Physical Examination General: No Apparent Distress Neck: Positive: neck supple Cardiac: Positive: irregularly irregular Lungs: Positive: Normal Breath Sounds Neuro: Positive: Grossly Intact Abdomen: Positive: Unremarkable, Soft Skin: Negative: Rash, Wound Musculoskeletal: No Pain Extremities: Present: upper extr. pulses, lower extr. pulses, edema, +1 Edema - Labs and Meds CBC 10/03/20 Range/Units 04:44 WBC 5.4 (4.5-11.0) K/mm3 RBC 3.60 L (3.65-5.03) M/mm3 Hgb 13.2 (11.8-15.2) gm/dl Hct 39.0 (35.5-45.6) % Plt Count 139 L (140-440) K/mm3 - Imaging and Cardiology EKG: report reviewed, image reviewed Echo: report reviewed - Telemetry EKG Rhythm: Atrial Fibrillation - EKG Supraventricular dysrhythmia: atrial fibrillation - Allied health notes Allied health notes reviewed: nursing
[2020-10-03] MEDS ORDERED: METOPROLOL TARTRATE 5 MG/5 ML INJ IV PRN (11:54)
--- NOTE | 2020-10-03 16:16 | Progress Note ---
Assessment and Plan -- Acute metabolic encephalopathy Likely due to uremia and underlying history of dementia CT head without contrast no acute abnormality Neurochecks and supportive care Continue aspirin and statin Continue to provide supportive care Of note patient had prior admission with similar presentation and work-up were essentially normal --Dementia, history of Patient does have history of dementia and apparently is becoming progressive -- Atrial fibrillation with RVR He had some IV diltiazem in the ER with rate control. We will resume routine home medications and monitor EKG. --NSTEMI (non-ST elevated myocardial infarction) type II In the setting of end-stage renal disease Chronic elevation of troponins Echo; EF 40 to 45%, continue aspirin And statin --Chronic systolic CHF, EF 40 to 45% Continue aspirin and statin, volume control with hemodialysis --Recurrent hypoglycemia due to poor oral intake Patient placed on D10W -- ESRD on dialysis Hemodialysis per schedule --Hypertension Continue current antihypertensives --GERD; Protonix 40 mg p.o. daily. --Full CODE STATUS -- DVT prophylaxis: s/p Heparin 5000 units subcu every 8 hours. Daily clinical course: 09/29/20: Patient refused to eat, mental status remain unchanged, does not make any eye contact. Placed on low volume D5 normal saline, monitor clinically. Patient noted to be in normal sinus rhythm on telemetry 09/30/20: Clinically remains unchanged, patient remains lethargic with eyes open and does not cooperate with the exam. Psych consulted, will follow recommendation. We will transfer to telemetry. Follow clinically 10/01/20; patient again flipped back to atrial fibrillation today, cardiology consulted, started on Eliquis twice daily. Patient remains confused and lethargic. Continue supportive care. Hypoglycemia protocol as patient with low oral intake. Continue D5 normal saline-if continues to be hypoglycemic may need to change to D10. 10/02/20: Patient more alert and verbal today. But remains confused. Oriented to person only. Discussed plan of care with case management and patient's caregiver. Patient dementia seems to be worsening, and requires more supportive care. Caregiver requesting for [facility]. mri manager notified and working on placement. Speech therapy evaluated the patient, will start on pured diet. Follow CBC BMP. 10/03/20: need screening COVID19 test for placement. pt resting peacefully and remains confused. Continue supportive care, pending SNF placement. Subjective Date of service: 10/03/20 Principal diagnosis: AFIB Interval history: Patient seen and examined. Medical records and medication list reviewed. No acute event overnight noted by the RN. Patient tolerating diet, pending SNF placement, ordered for screening Covid test Discussed plan of care at bedside with patient's RN. Objective - Exam Narrative Exam: GENERAL: well-developed and well-nourished -[place] male lying on bed a ppeared to be in no discomfort, more alert and oriented today HEENT: Normocephalic. Atraumatic. No conjunctival congestion or icterus. Patient has moist mucous membranes. NECK: Supple. Trachea midline. CHEST/LUNGS: Clear to auscultated bilaterally, breathing nonlabored. No wheezes crackles or rhonchi. HEART/CARDIOVASCULAR: Regular in rate and rhythm. S1 and S2 positive. ABDOMEN: Abdomen is soft, nontender. Patient has normal bowel sounds. SKIN: There is no rash. Warm and dry. NEURO: Patient able to answer questions but disoriented, follow commands, no focal deficits MUSCULOSKELETAL: No joint effusion or tenderness. EXTRIMITY: No edema, no cyanosis or clubbing. PSYCH: Cooperative. - Constitutional Vitals: Vital Signs - 12hr 10/03/20 10/03/20 10/03/20 04:20 07:55 08:00 Temperature 98 F 97.9 F Pulse Rate 58 L 70 88 Respiratory 18 Rate Blood Pressure 133/82 Blood Pressure 131/68 [Left] O2 Sat by Pulse 100 Oximetry 10/03/20 10/03/20 09:46 11:32 Temperature 97.9 F Pulse Rate 70 Respiratory 18 Rate Blood Pressure 133/82 144/79 Blood Pressure [Left] O2 Sat by Pulse Oximetry - Labs CBC & Chem 7: 10/03/20 04:44 10/02/20 04:58 Labs: Abnormal lab results 10/03/20 10/03/20 Range/Units 04:44 15:50 RBC 3.60 L (3.65-5.03) M/mm3 MCV 108 H (84-94) fl MCH 37 H (28-32) pg RDW 19.5 H (13.2-15.2) % Plt Count 139 L (140-440) K/mm3 POC Glucose 137 H (70-105) mg/dL
[2020-10-03] MEDS: METOPROLOL TARTRATE 25 MG TAB PO SCH ×2 (18:07→21:47)
--- NOTE | 2020-10-03 22:40 | Progress Note ---
Assessment and Plan - Patient Problems (1) Metabolic encephalopathy Current Visit: Yes Status: Acute Plan to address problem: In the setting of missed HD treatments. Overall mentation stable. Remains what seems to be very depressed and uninterested in interacting, eating. (2) Hypervolemia Current Visit: Yes Status: Chronic Plan to address problem: Will optimize with UF during HD treatments. Plan to place on MWF inpatient HD schedule, and will assess for additional needs of sequential UF treatment. 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 (4) Atrial fibrillation with RVR Current Visit: Yes Status: Acute Plan to address problem: Rate control per cardiology. (5) ESRD on dialysis Current Visit: Yes Status: Chronic Plan to address problem: Maintain on inpatient MWF HD schedule. Orders placed. (6) Anemia in chronic kidney disease (CKD) Current Visit: No Status: Chronic Qualifiers: Chronic kidney disease stage: on chronic dialysis Qualified Code(s): N18.6 - End stage renal disease; D63.1 - Anemia in chronic kidney disease; Z99.2 - Dependence on renal dialysis Plan to address problem: H/H levels are stable, and there is no acute needs for BRIDGET therapy. Will monitor closely. Subjective Date of service: 10/03/20 Principal diagnosis: AFIB Interval history: No acute changes. Pending SNF placement. Had HD yesterday. Plan for next HD t reatment tomorrow. Objective - Vital Signs Vital signs: Vital Signs - 12hr 10/03/20 10/03/20 10/03/20 11:32 15:52 18:07 Temperature 97.9 F 98.2 F Pulse Rate 99 H 99 H Respiratory 18 18 Rate Blood Pressure 144/79 122/73 122/73 O2 Sat by Pulse 97 Oximetry 10/03/20 10/03/20 20:00 20:29 Temperature 97.8 F Pulse Rate 99 H 83 Respiratory 18 Rate Blood Pressure 121/75 O2 Sat by Pulse 97 Oximetry - General Appearance General appearance: appears stated age, fatigue, frail EENT: ATNC Neck: no JVD Respiratory: Present: Clear to Ascultation Cardiology: irregularly irregular Gastrointestinal: normal Integumentary: no rash Neurologic: no asterixis, confused Musculoskeletal: deferred Psychiatric: depressed - Lab 10/03/20 04:44 10/02/20 04:58 Most recent lab results Calcium 9.4 mg/dL (8.4-10.2) 10/02/20 04:58 - Allied health notes Allied health notes reviewed: nursing Medications & Allergies - Medications Allergies/Adverse Reactions: Allergies No Known Allergies Allergy (Verified 09/28/20 20:06) Home Medications: Home Medications Medication Instructions Recorded Confirmed Last Taken Type Epoetin Blayne 10,000 Unit [Procrit] 10,000 unit IV NINO PRN #1 vial 12/02/18 02/05/20 11/20/19 10:00 Rx HYDROcodone/APAP 5-325 [[place] 1 each PO Q6H PRN tablet 11/22/19 02/05/20 Unknown Rx 5-325 mg TAB] polyethylene glycoL 3350 [Miralax 17 gm PO QDAY PRN #30 powd.pack 11/22/19 02/05/20 Unknown Rx 3350] Acetaminophen [Acetaminophen TAB] 650 mg PO Q4H PRN tablet 02/08/20 Unknown Rx Aspirin 325 mg PO QDAY #30 tablet 09/20/20 Unknown Rx AtorvaSTATin [Lipitor] 40 mg PO QHS #30 tablet 09/20/20 Unknown Rx Famotidine [Pepcid] 10 mg PO BID #60 tablet 09/20/20 Unknown Rx Ferric Citrate (Nf) [Auryxia] 420 mg PO TID #90 tab 09/20/20 Unknown Rx Metoprolol [Lopressor TAB] 50 mg PO BID #60 tablet 09/20/20 Unknown Rx amLODIPine 5 mg PO QDAY #30 tablet 09/20/20 Unknown Rx hydrALAZINE [Apresoline TAB] 50 tab PO TID #180 tablet 09/20/20 Unknown Rx Active Medications: Generic Name Dose Route Start Last Admin Trade Name Freq PRN Reason Stop Dose Admin Acetaminophen 650 mg 09/28/20 22:32 Acetaminophen 325 Mg Tab PO Q6H PRN Pain MILD(1-3)/Fever >100.5/RUIZ Hydrocodone Bitart/Acetaminophen 1 each 09/29/20 04:55 09/29/20 22:12 Hydrocodone/Acetaminophen 5-325 Mg Tab PO 1 each Q6H PRN Administration Pain , Severe (7-10) Albumin Human 25 gm 09/28/20 21:12 Albumin Human 25% (25 Gm/100 Ml) Inj IV NINO PRN Hypotension Amlodipine Besylate 5 mg 09/29/20 10:00 10/03/20 09:46 Amlodipine 5 Mg Tab PO 5 mg QDAY BECKIE Administration Apixaban 5 mg 10/01/20 13:00 10/03/20 21:44 Apixaban 5 Mg Tab PO 5 mg Q12HR BECKIE Administration Protocol Aspirin 325 mg 09/29/20 10:00 10/03/20 09:46 Aspirin 325 Mg Tab PO 325 mg QDAY BECKIE Administration Atorvastatin Calcium 40 mg 09/30/20 22:00 10/03/20 21:44 Atorvastatin 40 Mg Tab PO 40 mg QHS BECKIE Administration Dextrose 50 ml 10/01/20 11:57 10/01/20 16:17 Dextrose 50% In Water (25gm) 50 Ml Syringe IV 20 ml Q30MIN PRN Administration HYPOGLYCEMIA Protocol Famotidine 10 mg 09/29/20 10:00 10/03/20 21:44 Famotidine 10 Mg Tab PO 10 mg BID BECKIE Administration Sodium Chloride 100 mls @ 999 mls/hr 09/30/20 07:30 Nacl 0.9% IV NINO PRN Hypotension Dextrose 1,000 mls @ 42 mls/hr 10/01/20 16:00 10/02/20 21:48 D10w IV 42 mls/hr DIRECT BECKIE Administration Magnesium Hydroxide 30 ml 09/28/20 22:32 Magnesium Hydroxide (Mom) Oral Liqd Udc PO Q4H PRN Constipation Metoprolol Tartrate 12.5 mg 10/03/20 12:00 10/03/20 21:47 Metoprolol Tartrate 25 Mg Tab PO 12.5 mg BID BECKIE Administration Metoprolol Tartrate 5 mg 10/03/20 11:54 Metoprolol Tartrate 5 Mg/5 Ml Inj IV Q6HR PRN Hypertension Morphine Sulfate 2 mg 09/28/20 22:32 10/01/20 06:20 Morphine 2 Mg/1 Ml Inj IV 2 mg Q4H PRN Administration Pain, Moderate (4-6) Morphine Sulfate 4 mg 09/28/20 22:32 09/30/20 18:15 Morphine 4 Mg/1 Ml Inj IV 4 mg Q4H PRN Administration Pain , Severe (7-10) Ondansetron HCl 4 mg 09/28/20 22:32 Ondansetron 4 Mg/2 Ml Inj IV Q8H PRN Nausea And Vomiting Polyethylene Glycol 17 gm 09/29/20 04:55 Polyethylene Glycol 3350 17 Gm Powder PO QDAY PRN Constipation Sodium Chloride 10 ml 09/29/20 10:00 10/03/20 21:45 Sodium Chloride 0.9% 10 Ml Flush Syringe IV 10 ml BID BECKIE Administration Sodium Chloride 10 ml 09/28/20 22:26 10/02/20 06:37 Sodium Chloride 0.9% 10 Ml Flush Syringe IV 10 ml PRN PRN Administration LINE FLUSH
--- NOTE | 2020-10-04 10:28 | Progress Note ---
Assessment and Plan AFIB with RVR * Continue Eliquis for anticoagulation * Continue to monitor on telemetry Cardiomyopathy * Echo 07/13/2020 shows EF40-45%. LV is normal, LVSF mild to moderately decreased with LVH. LA severely dilated. RA modereately dilated. Moderate aortic Stenosis,mild aortic regurgitation, moderate mitral regurgitation. Severe tricuspid regurgitation and mild pulmonic regurgitation. aortic mean gradient 26.9 mmHG * GDMT-No statin in setting of elevated liver enzymes Aortic Stenosis * Aortic valve severely calcified * Volume control will be managed by nephrology due to patient on HD HTN * Optimize antihypertensive regimen. Continue amlodipine 5mg PO Qday * Increased metoprolol 12.5mg to 50mg BID PO and metoprolol 5mg IV PRN DVT Prophylaxis * Patient is on Eliquis for oral anticoagulation Patient stable from cardiac standpoint. Ok to discharge to SNF from cards standpoint Patient seen in conjuction with who agrees with this assessment and plan. Will continue to follow - Patient Problems (1) Atrial fibrillation with RVR Current Visit: Yes Status: Acute (2) Metabolic encephalopathy Current Visit: Yes Status: Acute (3) Altered mental state Current Visit: No Status: Acute (4) CVA (cerebral vascular accident) Current Visit: No Status: Acute (5) Dementia Current Visit: No Status: Acute Subjective Date of service: 10/04/20 Principal diagnosis: AFIB Interval history: Patient resting in bed. Afib 80s with PVCs on monitor Objective Last Vital Signs Temp 98.1 F 10/04/20 08:58 Pulse 50 L 10/04/20 08:58 Resp 16 10/04/20 08:58 BP 139/81 10/04/20 08:58 Pulse Ox 95 10/04/20 08:58 - Physical Examination General: No Apparent Distress Neck: Positive: neck supple Cardiac: Positive: irregularly irregular Lungs: Positive: Normal Breath Sounds Neuro: Positive: Grossly Intact Abdomen: Positive: Unremarkable, Soft Skin: Negative: Rash, Wound Musculoskeletal: No Pain Extremities: Present: upper extr. pulses, lower extr. pulses, edema, +1 Edema - Imaging and Cardiology EKG: report reviewed, image reviewed Echo: report reviewed - Telemetry EKG Rhythm: Atrial Fibrillation - EKG Supraventricular dysrhythmia: atrial fibrillation - Allied health notes Allied health notes reviewed: nursing
[2020-10-04] MEDS: METOPROLOL TARTRATE 25 MG TAB PO SCH ×2 (10:35→21:46)
[2020-10-04] MEDS: amLODIPine 5 MG TAB PO SCH (10:35)
[2020-10-04] MEDS: APIXABAN 5 MG TAB PO SCH ×2 (10:36→21:45)
[2020-10-04] MEDS: ASPIRIN 325 MG TAB PO SCH (10:36)
[2020-10-04] MEDS: FAMOTIDINE 10 MG TAB PO SCH ×2 (10:36→21:46)
--- NOTE | 2020-10-04 11:36 | Progress Note ---
Assessment and Plan - Patient Problems (1) Metabolic encephalopathy Current Visit: Yes Status: Acute Plan to address problem: In the setting of missed HD treatments. Overall mentation stable. Remains what seems to be very depressed and uninterested in interacting, eating. (2) Hypervolemia Current Visit: Yes Status: Chronic Plan to address problem: Will optimize with UF during HD treatments. Plan to place on MWF inpatient HD schedule, and will assess for additional needs of sequential UF treatment. 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 (4) Atrial fibrillation with RVR Current Visit: Yes Status: Acute Plan to address problem: Rate control per cardiology. (5) ESRD on dialysis Current Visit: Yes Status: Chronic Plan to address problem: Maintain on inpatient MWF HD schedule. Orders placed. (6) Anemia in chronic kidney disease (CKD) Current Visit: No Status: Chronic Qualifiers: Chronic kidney disease stage: on chronic dialysis Qualified Code(s): N18.6 - End stage renal disease; D63.1 - Anemia in chronic kidney disease; Z99.2 - Dependence on renal dialysis Plan to address problem: H/H levels are stable, and there is no acute needs for BRIDGET therapy. Will monitor closely. Subjective Date of service: 10/04/20 Principal diagnosis: AFIB Interval history: no acute changes. Pending SNIF placement at this time. Undergoing COVID-19 testing prior to transfer. Objective - Vital Signs Vital signs: Vital Signs - 12hr 10/04/20 10/04/20 10/04/20 00:28 05:18 08:58 Temperature 97.4 F L 97.2 F L 98.1 F Pulse Rate 66 93 H 50 L Respiratory 20 18 16 Rate Blood Pressure 137/75 141/85 139/81 O2 Sat by Pulse 95 95 95 Oximetry 10/04/20 10/04/20 10:34 10:35 Temperature Pulse Rate 120 H 120 H Respiratory Rate Blood Pressure 139/81 O2 Sat by Pulse Oximetry - General Appearance General appearance: chronically ill, frail EENT: ATNC Neck: no JVD Respiratory: Present: Clear to Ascultation Cardiology: irregularly irregular Gastrointestinal: normal Integumentary: no rash Musculoskeletal: deferred - Lab 10/03/20 04:44 10/02/20 04:58 Most recent lab results Calcium 9.4 mg/dL (8.4-10.2) 10/02/20 04:58 - Allied health notes Allied health notes reviewed: nursing Medications & Allergies - Medications Allergies/Adverse Reactions: Allergies No Known Allergies Allergy (Verified 09/28/20 20:06) Home Medications: Home Medications Medication Instructions Recorded Confirmed Last Taken Type Epoetin Blayne 10,000 Unit [Procrit] 10,000 unit IV NINO PRN #1 vial 12/02/18 02/05/20 11/20/19 10:00 Rx HYDROcodone/APAP 5-325 [[place] 1 each PO Q6H PRN tablet 11/22/19 02/05/20 Unknown Rx 5-325 mg TAB] polyethylene glycoL 3350 [Miralax 17 gm PO QDAY PRN #30 powd.pack 11/22/19 02/05/20 Unknown Rx 3350] Acetaminophen [Acetaminophen TAB] 650 mg PO Q4H PRN tablet 02/08/20 Unknown Rx Aspirin 325 mg PO QDAY #30 tablet 09/20/20 Unknown Rx AtorvaSTATin [Lipitor] 40 mg PO QHS #30 tablet 09/20/20 Unknown Rx Famotidine [Pepcid] 10 mg PO BID #60 tablet 09/20/20 Unknown Rx Ferric Citrate (Nf) [Auryxia] 420 mg PO TID #90 tab 09/20/20 Unknown Rx Metoprolol [Lopressor TAB] 50 mg PO BID #60 tablet 09/20/20 Unknown Rx amLODIPine 5 mg PO QDAY #30 tablet 09/20/20 Unknown Rx hydrALAZINE [Apresoline TAB] 50 tab PO TID #180 tablet 09/20/20 Unknown Rx Active Medications: Generic Name Dose Route Start Last Admin Trade Name Freq PRN Reason Stop Dose Admin Acetaminophen 650 mg 09/28/20 22:32 Acetaminophen 325 Mg Tab PO Q6H PRN Pain MILD(1-3)/Fever >100.5/RUIZ Hydrocodone Bitart/Acetaminophen 1 each 09/29/20 04:55 09/29/20 22:12 Hydrocodone/Acetaminophen 5-325 Mg Tab PO 1 each Q6H PRN Administration Pain , Severe (7-10) Albumin Human 25 gm 09/28/20 21:12 Albumin Human 25% (25 Gm/100 Ml) Inj IV NINO PRN Hypotension Amlodipine Besylate 5 mg 09/29/20 10:00 10/04/20 10:35 Amlodipine 5 Mg Tab PO 5 mg QDAY BECKIE Administration Apixaban 5 mg 10/01/20 13:00 10/04/20 10:36 Apixaban 5 Mg Tab PO 5 mg Q12HR BECKIE Administration Protocol Aspirin 325 mg 09/29/20 10:00 10/04/20 10:36 Aspirin 325 Mg Tab PO 325 mg QDAY BECKIE Administration Dextrose 50 ml 10/01/20 11:57 10/01/20 16:17 Dextrose 50% In Water (25gm) 50 Ml Syringe IV 20 ml Q30MIN PRN Administration HYPOGLYCEMIA Protocol Famotidine 10 mg 09/29/20 10:00 10/04/20 10:36 Famotidine 10 Mg Tab PO 10 mg BID BECKEI Administration Sodium Chloride 100 mls @ 999 mls/hr 09/30/20 07:30 Nacl 0.9% IV NINO PRN Hypotension Dextrose 1,000 mls @ 42 mls/hr 10/01/20 16:00 10/02/20 21:48 D10w IV 42 mls/hr DIRECT BECKIE Administration Magnesium Hydroxide 30 ml 09/28/20 22:32 Magnesium Hydroxide (Mom) Oral Liqd Udc PO Q4H PRN Constipation Metoprolol Tartrate 5 mg 10/03/20 11:54 Metoprolol Tartrate 5 Mg/5 Ml Inj IV Q6HR PRN Hypertension Metoprolol Tartrate 25 mg 10/04/20 10:00 10/04/20 10:35 Metoprolol Tartrate 25 Mg Tab PO 25 mg BID BECKIE Administration Morphine Sulfate 2 mg 09/28/20 22:32 10/01/20 06:20 Morphine 2 Mg/1 Ml Inj IV 2 mg Q4H PRN Administration Pain, Moderate (4-6) Morphine Sulfate 4 mg 09/28/20 22:32 09/30/20 18:15 Morphine 4 Mg/1 Ml Inj IV 4 mg Q4H PRN Administration Pain , Severe (7-10) Ondansetron HCl 4 mg 09/28/20 22:32 Ondansetron 4 Mg/2 Ml Inj IV Q8H PRN Nausea And Vomiting Polyethylene Glycol 17 gm 09/29/20 04:55 Polyethylene Glycol 3350 17 Gm Powder PO QDAY PRN Constipation Sodium Chloride 10 ml 09/29/20 10:00 10/04/20 10:36 Sodium Chloride 0.9% 10 Ml Flush Syringe IV 10 ml BID BECKIE Administration Sodium Chloride 10 ml 09/28/20 22:26 10/02/20 06:37 Sodium Chloride 0.9% 10 Ml Flush Syringe IV 10 ml PRN PRN Administration LINE FLUSH
[2020-10-04 16:19] LABS: Hematocrit 38.2 % (35.5-45.6); Hemoglobin 12.8 gm/dl (11.8-15.2); Mean Corpuscular HGB Conc 34 % (32-34); Mean Corpuscular Volume 108 fl (84-94); Platelet Count 158 K/mm3 (140-440); Red Blood Count 3.52 M/mm3 (3.65-5.03); Red Cell Distribution Width 19.4 % (13.2-15.2)
--- NOTE | 2020-10-04 19:33 | Progress Note ---
Assessment and Plan Assessment and plan: -- Acute metabolic encephalopathy Likely due to uremia and underlying history of dementia CT head without contrast no acute abnormality Neurochecks and supportive care Continue aspirin and statin Continue to provide supportive care Of note patient had prior admission with similar presentation and work-up were essentially normal --Dementia, history of Patient does have history of dementia and apparently is becoming progressive -- Atrial fibrillation with RVR He had some IV diltiazem in the ER with rate control. We will resume routine home medications and monitor EKG. --NSTEMI (non-ST elevated myocardial infarction) type II In the setting of end-stage renal disease Chronic elevation of troponins Echo; EF 40 to 45%, continue aspirin And statin --Chronic systolic CHF, EF 40 to 45% Continue aspirin and statin, volume control with hemodialysis --Recurrent hypoglycemia due to poor oral intake Patient placed on D10W -- ESRD on dialysis Hemodialysis per schedule --Hypertension Continue current antihypertensives --GERD; Protonix 40 mg p.o. daily. --Full CODE STATUS -- DVT prophylaxis: s/p Heparin 5000 units subcu every 8 hours. Daily clinical course: 09/29/20: Patient refused to eat, mental status remain unchanged, does not make any eye contact. Placed on low volume D5 normal saline, monitor clinically. Patient noted to be in normal sinus rhythm on telemetry 09/30/20: Clinically remains unchanged, patient remains lethargic with eyes open and does not cooperate with the exam. Psych consulted, will follow recommendation. We will transfer to telemetry. Follow clinically 10/01/20; patient again flipped back to atrial fibrillation today, cardiology consulted, started on Eliquis twice daily. Patient remains confused and lethargic. Continue supportive care. Hypoglycemia protocol as patient with low oral intake. Continue D5 normal saline-if continues to be hypoglycemic may need to change to D10. 10/02/20: Patient more alert and verbal today. But remains confused. Oriented to person only. Discussed plan of care with case management and patient's caregiver. Patient dementia seems to be worsening, and requires more supportive care. Caregiver requesting for group home placement. shop manager notified and working on placement. Speech therapy evaluated the patient, will start on pured diet. Follow CBC BMP. 10/03/20: need screening COVID19 test for placement. pt resting peacefully and remains confused. Continue supportive care, pending SNF placement. 10/04/20: Pending SNF placement. History Interval history: Patient resting comfortably. No acute overnight events. Hospitalist Physical - Physical exam Narrative exam: General: No Apparent Distress Neck: Positive: neck supple Cardiac: Positive: irregularly irregular Lungs: Positive: Normal Breath Sounds Neuro: Positive: Grossly Intact Abdomen: Positive: Unremarkable, Soft Skin: Negative: Rash, Wound Musculoskeletal: No Pain Extremities: Present: upper extr. pulses, lower extr. pulses, edema, +1 Edema Psych: alert and oriented x1. person - Constitutional Vitals: Temp Pulse Resp BP Pulse Ox 97.5 F L 78 18 118/80 97 10/04/20 13:43 10/04/20 13:43 10/04/20 13:43 10/04/20 13:43 10/04/20 13:43 General appearance: Present: no acute distress Results - Labs CBC & Chem 7: 10/04/20 15:46 10/04/20 15:46 Labs: Laboratory Last Values WBC 6.1 K/mm3 (4.5-11.0) 10/04/20 15:46 RBC 3.52 M/mm3 (3.65-5.03) L 10/04/20 15:46 Hgb 12.8 gm/dl (11.8-15.2) 10/04/20 15:46 Hct 38.2 % (35.5-45.6) 10/04/20 15:46 MCV 108 fl (84-94) H 10/04/20 15:46 MCH 36 pg (28-32) H 10/04/20 15:46 MCHC 34 % (32-34) 10/04/20 15:46 RDW 19.4 % (13.2-15.2) H 10/04/20 15:46 Plt Count 158 K/mm3 (140-440) 10/04/20 15:46 Lymph % (Auto) 40.4 % (13.4-35.0) H 09/30/20 04:52 [place] % (Auto) 10.9 % (0.0-7.3) H 09/30/20 04:52 Eos % (Auto) 5.4 % (0.0-4.3) H 09/30/20 04:52 Baso % (Auto) 0.9 % (0.0-1.8) 09/30/20 04:52 Lymph # (Auto) 1.5 K/mm3 (1.2-5.4) 09/30/20 04:52 [place] # (Auto) 0.4 K/mm3 (0.0-0.8) 09/30/20 04:52 Eos # (Auto) 0.2 K/mm3 (0.0-0.4) 09/30/20 04:52 Baso # (Auto) 0.0 K/mm3 (0.0-0.1) 09/30/20 04:52 Seg Neutrophils % 42.4 % (40.0-70.0) 09/30/20 04:52 Seg Neutrophils # 1.5 K/mm3 (1.8-7.7) L 09/30/20 04:52 PT 14.7 Sec. (12.2-14.9) 10/01/20 19:20 INR 1.10 (0.87-1.13) 10/01/20 19:20 APTT 33.4 Sec. (24.2-36.6) 10/01/20 19:20 Sodium 132 mmol/L (137-145) L D 10/04/20 15:46 Potassium 5.8 mmol/L (3.6-5.0) H D 10/04/20 15:46 Chloride 95.6 mmol/L (98-107) L 10/04/20 15:46 Carbon Dioxide 27 mmol/L (22-30) 10/04/20 15:46 Anion Gap 15 mmol/L 10/04/20 15:46 BUN 31 mg/dL (9-20) H 10/04/20 15:46 Creatinine 7.3 mg/dL (0.8-1.3) H 10/04/20 15:46 Creatinine 7.5 mg/dL (0.8-1.3) H 10/04/20 15:46 Estimated GFR 9 ml/min 10/04/20 15:46 Estimated GFR 9 ml/min 10/04/20 15:46 BUN/Creatinine Ratio 4 % 10/04/20 15:46 Glucose 98 mg/dL (75-100) 10/04/20 15:46 POC Glucose 83 mg/dL (70-105) 10/04/20 09:15 Lactic Acid 1.30 mmol/L (0.7-2.0) 09/28/20 19:16 Calcium 9.0 mg/dL (8.4-10.2) 10/04/20 15:46 Total Bilirubin 0.50 mg/dL (0.1-1.2) 09/30/20 04:58 Direct Bilirubin < 0.2 mg/dL (0-0.2) 09/30/20 04:58 Indirect Bilirubin 0.3 mg/dL 09/30/20 04:58 AST 65 units/L (5-40) H 09/30/20 04:58 ALT 150 units/L (7-56) H 09/30/20 04:58 Alkaline Phosphatase 63 units/L (35-129) 09/30/20 04:58 Ammonia 27.0 umol/L (25-60) 09/28/20 19:16 Total Protein 6.2 g/dL (6.3-8.2) L 09/30/20 04:58 Albumin 3.2 g/dL (3.9-5) L 09/30/20 04:58 Albumin/Globulin Ratio 1.1 % 09/30/20 04:58 TSH 5.790 mlU/mL (0.270-4.200) H 09/28/20 19:16 Free T4 1.13 ng/dL (0.76-1.46) 09/29/20 18:01 Nasal Screen MRSA (PCR) Negative (Negative) 10/01/20 Unknown Coronavirus (PCR) Negative (Negative) 10/03/20 Unknown David/IV: Voiding Method Condom Catheter Active Medications - Current Medications Current Medications: Generic Name Dose Route Start Last Admin Trade Name Freq PRN Reason Stop Dose Admin Acetaminophen 650 mg 09/28/20 22:32 Acetaminophen 325 Mg Tab PO Q6H PRN Pain MILD(1-3)/Fever >100.5/RUIZ Hydrocodone Bitart/Acetaminophen 1 each 09/29/20 04:55 09/29/20 22:12 Hydrocodone/Acetaminophen 5-325 Mg Tab PO 1 each Q6H PRN Administration Pain , Severe (7-10) Albumin Human 25 gm 09/28/20 21:12 Albumin Human 25% (25 Gm/100 Ml) Inj IV NINO PRN Hypotension Amlodipine Besylate 5 mg 09/29/20 10:00 10/04/20 10:35 Amlodipine 5 Mg Tab PO 5 mg QDAY BECKIE Administration Apixaban 5 mg 10/01/20 13:00 10/04/20 10:36 Apixaban 5 Mg Tab PO 5 mg Q12HR BECKIE Administration Protocol Aspirin 325 mg 09/29/20 10:00 10/04/20 10:36 Aspirin 325 Mg Tab PO 325 mg QDAY BECKIE Administration Dextrose 50 ml 10/01/20 11:57 10/01/20 16:17 Dextrose 50% In Water (25gm) 50 Ml Syringe IV 20 ml Q30MIN PRN Administration HYPOGLYCEMIA Protocol Famotidine 10 mg 09/29/20 10:00 10/04/20 10:36 Famotidine 10 Mg Tab PO 10 mg BID BECKIE Administration Sodium Chloride 100 mls @ 999 mls/hr 09/30/20 07:30 Nacl 0.9% IV NINO PRN Hypotension Dextrose 1,000 mls @ 42 mls/hr 10/01/20 16:00 10/02/20 21:48 D10w IV 42 mls/hr DIRECT BECKIE Administration Magnesium Hydroxide 30 ml 09/28/20 22:32 Magnesium Hydroxide (Mom) Oral Liqd Udc PO Q4H PRN Constipation Metoprolol Tartrate 5 mg 10/03/20 11:54 Metoprolol Tartrate 5 Mg/5 Ml Inj IV Q6HR PRN Hypertension Metoprolol Tartrate 25 mg 10/04/20 10:00 10/04/20 10:35 Metoprolol Tartrate 25 Mg Tab PO 25 mg BID BECKIE Administration Morphine Sulfate 2 mg 09/28/20 22:32 10/01/20 06:20 Morphine 2 Mg/1 Ml Inj IV 2 mg Q4H PRN Administration Pain, Moderate (4-6) Morphine Sulfate 4 mg 09/28/20 22:32 09/30/20 18:15 Morphine 4 Mg/1 Ml Inj IV 4 mg Q4H PRN Administration Pain , Severe (7-10) Ondansetron HCl 4 mg 09/28/20 22:32 Ondansetron 4 Mg/2 Ml Inj IV Q8H PRN Nausea And Vomiting Polyethylene Glycol 17 gm 09/29/20 04:55 Polyethylene Glycol 3350 17 Gm Powder PO QDAY PRN Constipation Sodium Chloride 10 ml 09/29/20 10:00 10/04/20 10:36 Sodium Chloride 0.9% 10 Ml Flush Syringe IV 10 ml BID BECKIE Administration Sodium Chloride 10 ml 09/28/20 22:26 10/02/20 06:37 Sodium Chloride 0.9% 10 Ml Flush Syringe IV 10 ml PRN PRN Administration LINE FLUSH Nutrition/Malnutrition Assess - Dietary Evaluation Nutrition/Malnutrition Findings: Nutrition Notes Start: 09/30/20 11:42 Freq: Status: Active Protocol: Document 10/04/20 11:55 MK (Rec: 10/04/20 11:59 MK [email or web address]) Nutrition Notes Initial or Follow up Reassessment Current Diagnosis CKD (stage V CKD),Diabetes, Sepsis,Heart Failure,Stroke Other Pertinent Diagnosis on HD Current Diet Pureed Labs/Tests POC BG 81-137 Pertinent Medications Reviewed Height 5 ft Weight 71.5 kg [place] Body Weight (kg) 48.18 BMI 30.7 Weight Status Obese Subjective/Other Information FU for intakes. Per RN, pt eating 50% of meals and drinking 1 ONS. Percent of energy/protein needs met: 98%/80% Burn Absent Trauma Absent GI Symptoms None Current % PO Fair (50-74%) Minimum of two criteria No physical signs of malnutrition #1 Nutrition Diagnosis Inadequate energy intake Diagnosis Progress(for reassessment Improved documentation) Is patient on ventilator? No Is Patient Ambulatory and/or Out of Bed No REE-([facility]-confined to bed) 1598.772 Kcal/Kg value to use for calculation 19 Approximate Energy Requirements Using 1359 kcal/Kg Calculation Used for Recommendations Kcal/kg Additional Notes Protein: (>1.2g/kg AdjBW: 60kg ) greater than 72g Fluid: 1 ml/kcal or per MD Nutrition Intervention Change Diet Order: Continue Add Supplement/Snack (indicate name/kcal Nepro BID /protein ) Provides kCal: 850 Provides Protein (gm) 38 Goal #1 Meet at least 75% of protein and energy needs via PO and ONS intakes Anticipated Discharge Needs: Renal, consistent CHO, pureed Follow-Up By: 10/08/20 Additional Comments FU for intakes and ONS tolerance
[2020-10-05] MEDS: ASPIRIN 325 MG TAB PO SCH (09:09)
[2020-10-05] MEDS: METOPROLOL TARTRATE 25 MG TAB PO SCH ×2 (09:09→21:50)
[2020-10-05] MEDS: APIXABAN 5 MG TAB PO SCH ×2 (09:09→21:50)
[2020-10-05] MEDS: amLODIPine 5 MG TAB PO SCH (09:09)
[2020-10-05] MEDS: FAMOTIDINE 10 MG TAB PO SCH ×2 (09:09→21:50)
--- NOTE | 2020-10-05 13:42 | Progress Note ---
Assessment and Plan AFIB with RVR * Continue Eliquis for anticoagulation * Continue to monitor on telemetry Cardiomyopathy * Echo 07/13/2020 shows EF40-45%. LV is normal, LVSF mild to moderately decreased with LVH. LA severely dilated. RA modereately dilated. Moderate aortic Stenosis,mild aortic regurgitation, moderate mitral regurgitation. Severe tricuspid regurgitation and mild pulmonic regurgitation. aortic mean gradient 26.9 mmHG * GDMT-No statin in setting of elevated liver enzymes Aortic Stenosis * Aortic valve severely calcified * Volume control will be managed by nephrology due to patient on HD HTN * Optimize antihypertensive regimen. Continue amlodipine 5mg PO Qday * Increased metoprolol 12.5mg to 50mg BID PO and metoprolol 5mg IV PRN DVT Prophylaxis * Patient is on Eliquis for oral anticoagulation Signed By Alvin Berg NP Patient stable from cardiac standpoint. Ok to discharge to SNF from cards standpoint Patient seen in conjuction with who agrees with this assessment and plan. Will continue to follow - Patient Problems (1) Atrial fibrillation with RVR Current Visit: Yes Status: Acute (2) Metabolic encephalopathy Current Visit: Yes Status: Acute (3) Altered mental state Current Visit: No Status: Acute (4) CVA (cerebral vascular accident) Current Visit: No Status: Acute (5) Dementia Current Visit: No Status: Acute Subjective Date of service: 10/05/20 Principal diagnosis: AFIB Interval history: Patient resting in bed. Afib 90s with PVCs on monitor Objective Last Vital Signs Temp 97.5 F L 10/05/20 10:56 Pulse 70 10/05/20 10:56 Resp 18 10/05/20 10:56 BP 120/74 10/05/20 10:56 Pulse Ox 98 10/05/20 10:56 - Physical Examination General: No Apparent Distress Neck: Positive: neck supple Cardiac: Positive: Irregularly Regular Neuro: Positive: Grossly Intact Abdomen: Positive: Unremarkable, Soft Skin: Negative: Rash, Wound Musculoskeletal: No Pain Extremities: Present: upper extr. pulses, lower extr. pulses, edema, +1 Edema - Labs and Meds CBC 10/04/20 Range/Units 15:46 WBC 6.1 (4.5-11.0) K/mm3 RBC 3.52 L (3.65-5.03) M/mm3 Hgb 12.8 (11.8-15.2) gm/dl Hct 38.2 (35.5-45.6) % Plt Count 158 (140-440) K/mm3 Comprehensive Metabolic Panel 10/04/20 10/04/20 Range/Units 15:46 15:46 Sodium 132 L D (137-145) mmol/L Potassium 5.8 H D (3.6-5.0) mmol/L Chloride 95.6 L (98-107) mmol/L Carbon Dioxide 27 (22-30) mmol/L BUN 31 H (9-20) mg/dL Creatinine 7.5 H 7.3 H (0.8-1.3) mg/dL Glucose 98 (75-100) mg/dL Calcium 9.0 (8.4-10.2) mg/dL - Imaging and Cardiology EKG: report reviewed, image reviewed Echo: report reviewed - Telemetry EKG Rhythm: Atrial Fibrillation - EKG Supraventricular dysrhythmia: atrial fibrillation - Allied health notes Allied health notes reviewed: nursing
--- NOTE | 2020-10-05 15:04 | Progress Note ---
Assessment and Plan - Patient Problems (1) Metabolic encephalopathy Current Visit: Yes Status: Acute Plan to address problem: Encephalopathy improved with dialysis. Patient does have baseline dementia. 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 disease or end stage renal disease Current Visit: Yes Status: Chronic Plan to address problem: Follow-up blood pressure on current medications (3) Hypervolemia Current Visit: Yes Status: Chronic Plan to address problem: Improved with fluid removal on dialysis (4) Anemia in chronic kidney disease (CKD) Current Visit: No Status: Chronic Qualifiers: Chronic kidney disease stage: on chronic dialysis Qualified Code(s): N18.6 - End stage renal disease; D63.1 - Anemia in chronic kidney disease; Z99.2 - Dependence on renal dialysis Plan to address problem: Given erythropoietin on dialysis (5) ESRD (end stage renal disease) Current Visit: No Status: Chronic Plan to address problem: Hemodialysis on a Wednesday, Wednesday and Wednesday schedule. Subjective Date of service: 10/05/20 Principal diagnosis: AFIB Interval history: Patient seen lying about in bed. "I am okay" he states. No chest pain or shortness of breath. No nausea vomiting Objective - Exam Narrative Exam: Elderly male lying in bed in no acute distress HEENT: NCAT, pink oral mucous membrane Neck: Supple, no venous distention CVS: S1S2 RRR with no murmur, rub or gallop Chest: Clear to auscultation Abdomen: Protuberant, soft, nontender, no organomegaly, bowel sounds are present Extremities: No edema Neuro: Awake, alert no focal deficits - Vital Signs Vital signs: Vital Signs - 12hr 10/05/20 10/05/20 10/05/20 04:32 07:00 09:01 Temperature 97.4 F L 97.2 F L Pulse Rate 89 77 79 Respiratory 18 18 Rate Blood Pressure 126/74 129/87 Blood Pressure [Left] O2 Sat by Pulse 97 95 Oximetry 10/05/20 10/05/20 09:09 10:56 Temperature 97.5 F L Pulse Rate 79 70 Respiratory 18 Rate Blood Pressure 129/87 Blood Pressure 120/74 [Left] O2 Sat by Pulse 98 Oximetry - Lab 10/04/20 15:46 10/04/20 15:46 Most recent lab results Calcium 9.0 mg/dL (8.4-10.2) 10/04/20 15:46 Medications & Allergies - Medications Allergies/Adverse Reactions: Allergies No Known Allergies Allergy (Verified 09/28/20 20:06) Home Medications: Home Medications Medication Instructions Recorded Confirmed Last Taken Type Epoetin Blayne 10,000 Unit [Procrit] 10,000 unit IV NINO PRN #1 vial 12/02/18 02/05/20 11/20/19 10:00 Rx HYDROcodone/APAP 5-325 [[place] 1 each PO Q6H PRN tablet 11/22/19 02/05/20 Unknown Rx 5-325 mg TAB] polyethylene glycoL 3350 [Miralax 17 gm PO QDAY PRN #30 powd.pack 11/22/19 02/05/20 Unknown Rx 3350] Acetaminophen [Acetaminophen TAB] 650 mg PO Q4H PRN tablet 02/08/20 Unknown Rx Aspirin 325 mg PO QDAY #30 tablet 09/20/20 Unknown Rx AtorvaSTATin [Lipitor] 40 mg PO QHS #30 tablet 09/20/20 Unknown Rx Famotidine [Pepcid] 10 mg PO BID #60 tablet 09/20/20 Unknown Rx Ferric Citrate (Nf) [Auryxia] 420 mg PO TID #90 tab 09/20/20 Unknown Rx Metoprolol [Lopressor TAB] 50 mg PO BID #60 tablet 09/20/20 Unknown Rx amLODIPine 5 mg PO QDAY #30 tablet 09/20/20 Unknown Rx hydrALAZINE [Apresoline TAB] 50 tab PO TID #180 tablet 09/20/20 Unknown Rx Active Medications: Generic Name Dose Route Start Last Admin Trade Name Freq PRN Reason Stop Dose Admin Acetaminophen 650 mg 09/28/20 22:32 Acetaminophen 325 Mg Tab PO Q6H PRN Pain MILD(1-3)/Fever >100.5/RUIZ Hydrocodone Bitart/Acetaminophen 1 each 09/29/20 04:55 09/29/20 22:12 Hydrocodone/Acetaminophen 5-325 Mg Tab PO 1 each Q6H PRN Administration Pain , Severe (7-10) Albumin Human 25 gm 09/28/20 21:12 Albumin Human 25% (25 Gm/100 Ml) Inj IV NINO PRN Hypotension Amlodipine Besylate 5 mg 09/29/20 10:00 10/05/20 09:09 Amlodipine 5 Mg Tab PO 5 mg QDAY BECKIE Administration Apixaban 5 mg 10/01/20 13:00 10/05/20 09:09 Apixaban 5 Mg Tab PO 5 mg Q12HR BECKIE Administration Protocol Aspirin 325 mg 09/29/20 10:00 10/05/20 09:09 Aspirin 325 Mg Tab PO 325 mg QDAY BECKIE Administration Dextrose 50 ml 10/01/20 11:57 10/01/20 16:17 Dextrose 50% In Water (25gm) 50 Ml Syringe IV 20 ml Q30MIN PRN Administration HYPOGLYCEMIA Protocol Famotidine 10 mg 09/29/20 10:00 10/05/20 09:09 Famotidine 10 Mg Tab PO 10 mg BID BECKIE Administration Sodium Chloride 100 mls @ 999 mls/hr 09/30/20 07:30 Nacl 0.9% IV NINO PRN Hypotension Dextrose 1,000 mls @ 42 mls/hr 10/01/20 16:00 10/02/20 21:48 D10w IV 42 mls/hr DIRECT BECKIE Administration Magnesium Hydroxide 30 ml 09/28/20 22:32 Magnesium Hydroxide (Mom) Oral Liqd Udc PO Q4H PRN Constipation Metoprolol Tartrate 5 mg 10/03/20 11:54 Metoprolol Tartrate 5 Mg/5 Ml Inj IV Q6HR PRN Hypertension Metoprolol Tartrate 25 mg 10/04/20 10:00 10/05/20 09:09 Metoprolol Tartrate 25 Mg Tab PO 25 mg BID BECKIE Administration Morphine Sulfate 2 mg 09/28/20 22:32 10/01/20 06:20 Morphine 2 Mg/1 Ml Inj IV 2 mg Q4H PRN Administration Pain, Moderate (4-6) Morphine Sulfate 4 mg 09/28/20 22:32 09/30/20 18:15 Morphine 4 Mg/1 Ml Inj IV 4 mg Q4H PRN Administration Pain , Severe (7-10) Ondansetron HCl 4 mg 09/28/20 22:32 Ondansetron 4 Mg/2 Ml Inj IV Q8H PRN Nausea And Vomiting Polyethylene Glycol 17 gm 09/29/20 04:55 Polyethylene Glycol 3350 17 Gm Powder PO QDAY PRN Constipation Sodium Chloride 10 ml 09/29/20 10:00 10/05/20 09:09 Sodium Chloride 0.9% 10 Ml Flush Syringe IV 10 ml BID BECKIE Administration Sodium Chloride 10 ml 09/28/20 22:26 10/02/20 06:37 Sodium Chloride 0.9% 10 Ml Flush Syringe IV 10 ml PRN PRN Administration LINE FLUSH
[2020-10-05 16:12] LABS: Hematocrit 37.8 % (35.5-45.6); Hemoglobin 12.8 gm/dl (11.8-15.2); Mean Corpuscular HGB Conc 34 % (32-34); Mean Corpuscular Volume 108 fl (84-94); Platelet Count 181 K/mm3 (140-440); Red Blood Count 3.51 M/mm3 (3.65-5.03); Red Cell Distribution Width 19.2 % (13.2-15.2)
[2020-10-05] MEDS: DEXTROSE 10% IN WATER 1,000 ML IV SCH (17:12)
[2020-10-06] MEDS ORDERED: diphenhydrAMINE 25 MG CAP PO ONE (00:27)
--- NOTE | 2020-10-06 08:30 | Progress Note ---
Assessment and Plan Echo 06/2020 - EF 40-45%, severely calcified AV with moderate , mild AR, mild MR, severe TR, severely dilated LA, mild-mod dilated RA. Lexiscan stress MPI 11/2018 - negative for ischemia. Continue oral anticoagulation with Eliquis for AF. Rate is well-controlled with PO Lopressor 25mg BID. Awaiting SNF placement. Cardiac status remains stable. Will see on an as-needed basis. Signed by: Licha Rojo NP Pt seen in conjunction with Dr. Paz, who agrees with the assessment and plan of care. - Patient Problems (1) Altered mental status Current Visit: Yes Status: Acute (2) Atrial fibrillation with RVR Current Visit: Yes Status: Acute (3) Moderate aortic stenosis Current Visit: Yes Status: Chronic (4) Severe tricuspid regurgitation Current Visit: Yes Status: Chronic (5) ESRD on hemodialysis Current Visit: Yes Status: Chronic (6) Anemia Current Visit: Yes Status: Chronic (7) NSTEMI (non-ST elevated myocardial infarction) Current Visit: Yes Status: Acute Plan to address problem: Type 2/Chronically Elevated Tn (8) NICM (nonischemic cardiomyopathy) Current Visit: Yes Status: Chronic (9) Hypertension Current Visit: Yes Status: Chronic Qualifiers: Hypertension type: primary hypertension Qualified Code(s): I10 - Essential (primary) hypertension (10) Dementia Current Visit: Yes Status: Chronic Subjective Date of service: 10/06/20 Principal diagnosis: AF with RVR Interval history: No acute events overnight. Tele reviewed - AF 70-80s, no events. Objective Last Vital Signs Temp 97.7 F 10/06/20 15:07 Pulse 85 10/06/20 15:00 Resp 18 10/06/20 13:35 BP 119/77 10/06/20 15:00 Pulse Ox 97 10/06/20 15:00 - Physical Examination General: No Apparent Distress HEENT: Positive: EOMI, Normocephaly Neck: Positive: neck supple, trachea midline Cardiac: Positive: irregularly irregular, S1/S2 Lungs: Positive: Decreased Breath Sounds (bases) Neuro: Positive: Grossly Intact Abdomen: Positive: Soft Skin: Negative: Rash Musculoskeletal: No Pain Extremities: Present: upper extr. pulses, lower extr. pulses, edema - Labs and Meds CBC 10/05/20 Range/Units 15:34 WBC 7.1 (4.5-11.0) K/mm3 RBC 3.51 L (3.65-5.03) M/mm3 Hgb 12.8 (11.8-15.2) gm/dl Hct 37.8 (35.5-45.6) % Plt Count 181 (140-440) K/mm3 - Imaging and Cardiology EKG: report reviewed, image reviewed Pharmacologic stress test: report reviewed Echo: report reviewed - Telemetry EKG Rhythm: Atrial Fibrillation - EKG Supraventricular dysrhythmia: atrial fibrillation Repolarization changes or abnormalities: nonspecific abnormality, ST segment, and/or T wave - Allied health notes Allied health notes reviewed: nursing
[2020-10-06] MEDS ORDERED: DEXTROSE 50% IN WATER (25GM) 50 ML VIAL IV ONE (10:12)
[2020-10-06] MEDS: amLODIPine 5 MG TAB PO SCH (10:55)
[2020-10-06] MEDS: FAMOTIDINE 10 MG TAB PO SCH ×2 (10:55→22:01)
[2020-10-06] MEDS: APIXABAN 5 MG TAB PO SCH ×2 (10:55→22:01)
[2020-10-06] MEDS: ASPIRIN 325 MG TAB PO SCH (10:55)
[2020-10-06] MEDS: METOPROLOL TARTRATE 25 MG TAB PO SCH ×2 (10:56→22:02)
[2020-10-06] MEDS ORDERED: DEXTROSE 50% IN WATER (25GM) 50 ML SYRINGE IV ONE (11:00)
--- NOTE | 2020-10-06 14:25 | Progress Note ---
Assessment and Plan Assessment and plan: -- Acute metabolic encephalopathy Likely due to uremia and underlying history of dementia CT head without contrast no acute abnormality Neurochecks and supportive care Continue aspirin and statin Continue to provide supportive care Of note patient had prior admission with similar presentation and work-up were essentially normal --Dementia, history of Patient does have history of dementia and apparently is becoming progressive -- Atrial fibrillation with RVR He had some IV diltiazem in the ER with rate control. We will resume routine home medications and monitor EKG. --NSTEMI (non-ST elevated myocardial infarction) type II In the setting of end-stage renal disease Chronic elevation of troponins Echo; EF 40 to 45%, continue aspirin And statin --Chronic systolic CHF, EF 40 to 45% Continue aspirin and statin, volume control with hemodialysis --Recurrent hypoglycemia due to poor oral intake Patient placed on D10W -- ESRD on dialysis Hemodialysis per schedule --Hypertension Continue current antihypertensives --GERD; Protonix 40 mg p.o. daily. --Full CODE STATUS -- DVT prophylaxis: s/p Heparin 5000 units subcu every 8 hours. Dispo: Awaiting SNF placement. History Interval history: Daily clinical course: 09/29/20: Patient refused to eat, mental status remain unchanged, does not make any eye contact. Placed on low volume D5 normal saline, monitor clinically. Patient noted to be in normal sinus rhythm on telemetry 09/30/20: Clinically remains unchanged, patient remains lethargic with eyes open and does not cooperate with the exam. Psych consulted, will follow recommendation. We will transfer to telemetry. Follow clinically 10/01/20; patient again flipped back to atrial fibrillation today, cardiology consulted, started on Eliquis twice daily. Patient remains confused and lethargic. Continue supportive care. Hypoglycemia protocol as patient with low oral intake. Continue D5 normal saline-if continues to be hypoglycemic may need to change to D10. 10/02/20: Patient more alert and verbal today. But remains confused. Oriented to person only. Discussed plan of care with case management and patient's caregiver. Patient dementia seems to be worsening, and requires more supportive care. Caregiver requesting for prison placement. [employer] product manager notified and working on placement. Speech therapy evaluated the patient, will start on pured diet. Follow CBC BMP. 10/03/20: need screening COVID19 test for placement. pt resting peacefully and remains confused. Continue supportive care, pending SNF placement. 10/04/20: Pending SNF placement. 10/05/20: Pending SNF placement. 10/06/20: Resting comfortably. Ordered NANETTE sarmiento staff advised to continue feeding and supplementing patient diet, awaiting snf placement. Hospitalist Physical - Physical exam Narrative exam: General: No Apparent Distress Neck: Positive: neck supple Cardiac: Positive: irregularly irregular Lungs: Positive: Normal Breath Sounds Neuro: Positive: Grossly Intact Abdomen: Positive: Unremarkable, Soft Skin: Negative: Rash, Wound Musculoskeletal: No Pain Extremities: Present: upper extr. pulses, lower extr. pulses, edema, +1 Edema Psych: alert and oriented x1. person - Constitutional Vitals: Temp Pulse Resp BP Pulse Ox 97.4 F L 70 18 127/73 93 10/06/20 13:35 10/06/20 13:35 10/06/20 13:35 10/06/20 13:35 10/06/20 13:35 General appearance: Present: no acute distress Results - Labs CBC & Chem 7: 10/05/20 15:34 10/04/20 15:46 Labs: Laboratory Last Values WBC 7.1 K/mm3 (4.5-11.0) 10/05/20 15:34 RBC 3.51 M/mm3 (3.65-5.03) L 10/05/20 15:34 Hgb 12.8 gm/dl (11.8-15.2) 10/05/20 15:34 Hct 37.8 % (35.5-45.6) 10/05/20 15:34 MCV 108 fl (84-94) H 10/05/20 15:34 MCH 36 pg (28-32) H 10/05/20 15:34 MCHC 34 % (32-34) 10/05/20 15:34 RDW 19.2 % (13.2-15.2) H 10/05/20 15:34 Plt Count 181 K/mm3 (140-440) 10/05/20 15:34 Lymph % (Auto) 40.4 % (13.4-35.0) H 09/30/20 04:52 [place] % (Auto) 10.9 % (0.0-7.3) H 09/30/20 04:52 Eos % (Auto) 5.4 % (0.0-4.3) H 09/30/20 04:52 Baso % (Auto) 0.9 % (0.0-1.8) 09/30/20 04:52 Lymph # (Auto) 1.5 K/mm3 (1.2-5.4) 09/30/20 04:52 [place] # (Auto) 0.4 K/mm3 (0.0-0.8) 09/30/20 04:52 Eos # (Auto) 0.2 K/mm3 (0.0-0.4) 09/30/20 04:52 Baso # (Auto) 0.0 K/mm3 (0.0-0.1) 09/30/20 04:52 Seg Neutrophils % 42.4 % (40.0-70.0) 09/30/20 04:52 Seg Neutrophils # 1.5 K/mm3 (1.8-7.7) L 09/30/20 04:52 PT 14.7 Sec. (12.2-14.9) 10/01/20 19:20 INR 1.10 (0.87-1.13) 10/01/20 19:20 APTT 33.4 Sec. (24.2-36.6) 10/01/20 19:20 Sodium 132 mmol/L (137-145) L D 10/04/20 15:46 Potassium 5.8 mmol/L (3.6-5.0) H D 10/04/20 15:46 Chloride 95.6 mmol/L (98-107) L 10/04/20 15:46 Carbon Dioxide 27 mmol/L (22-30) 10/04/20 15:46 Anion Gap 15 mmol/L 10/04/20 15:46 BUN 31 mg/dL (9-20) H 10/04/20 15:46 Creatinine 7.3 mg/dL (0.8-1.3) H 10/04/20 15:46 Creatinine 7.5 mg/dL (0.8-1.3) H 10/04/20 15:46 Estimated GFR 9 ml/min 10/04/20 15:46 Estimated GFR 9 ml/min 10/04/20 15:46 BUN/Creatinine Ratio 4 % 10/04/20 15:46 Glucose 98 mg/dL (75-100) 10/04/20 15:46 POC Glucose 104 mg/dL (70-105) 10/06/20 11:33 Lactic Acid 1.30 mmol/L (0.7-2.0) 09/28/20 19:16 Calcium 9.0 mg/dL (8.4-10.2) 10/04/20 15:46 Total Bilirubin 0.50 mg/dL (0.1-1.2) 09/30/20 04:58 Direct Bilirubin < 0.2 mg/dL (0-0.2) 09/30/20 04:58 Indirect Bilirubin 0.3 mg/dL 09/30/20 04:58 AST 65 units/L (5-40) H 09/30/20 04:58 ALT 150 units/L (7-56) H 09/30/20 04:58 Alkaline Phosphatase 63 units/L (35-129) 09/30/20 04:58 Ammonia 27.0 umol/L (25-60) 09/28/20 19:16 Total Protein 6.2 g/dL (6.3-8.2) L 09/30/20 04:58 Albumin 3.2 g/dL (3.9-5) L 09/30/20 04:58 Albumin/Globulin Ratio 1.1 % 09/30/20 04:58 TSH 5.790 mlU/mL (0.270-4.200) H 09/28/20 19:16 Free T4 1.13 ng/dL (0.76-1.46) 09/29/20 18:01 Nasal Screen MRSA (PCR) Negative (Negative) 10/01/20 Unknown Coronavirus (PCR) Negative (Negative) 10/03/20 Unknown David/IV: Voiding Method Condom Catheter Active Medications - Current Medications Current Medications: Generic Name Dose Route Start Last Admin Trade Name Freq PRN Reason Stop Dose Admin Acetaminophen 650 mg 09/28/20 22:32 Acetaminophen 325 Mg Tab PO Q6H PRN Pain MILD(1-3)/Fever >100.5/RUIZ Hydrocodone Bitart/Acetaminophen 1 each 09/29/20 04:55 09/29/20 22:12 Hydrocodone/Acetaminophen 5-325 Mg Tab PO 1 each Q6H PRN Administration Pain , Severe (7-10) Albumin Human 25 gm 09/28/20 21:12 Albumin Human 25% (25 Gm/100 Ml) Inj IV NINO PRN Hypotension Amlodipine Besylate 5 mg 09/29/20 10:00 10/06/20 10:55 Amlodipine 5 Mg Tab PO 5 mg QDAY BECKIE Administration Apixaban 5 mg 10/01/20 13:00 10/06/20 10:55 Apixaban 5 Mg Tab PO 5 mg Q12HR BECKIE Administration Protocol Aspirin 325 mg 09/29/20 10:00 10/06/20 10:55 Aspirin 325 Mg Tab PO 325 mg QDAY BECKIE Administration Dextrose 50 ml 10/01/20 11:57 10/01/20 16:17 Dextrose 50% In Water (25gm) 50 Ml Syringe IV 20 ml Q30MIN PRN Administration HYPOGLYCEMIA Protocol Famotidine 10 mg 09/29/20 10:00 10/06/20 10:55 Famotidine 10 Mg Tab PO 10 mg BID BECKIE Administration Sodium Chloride 100 mls @ 999 mls/hr 09/30/20 07:30 Nacl 0.9% IV NINO PRN Hypotension Dextrose 1,000 mls @ 42 mls/hr 10/01/20 16:00 10/05/20 17:12 D10w IV 42 mls/hr DIRECT BECKIE Administration Magnesium Hydroxide 30 ml 09/28/20 22:32 Magnesium Hydroxide (Mom) Oral Liqd Udc PO Q4H PRN Constipation Megestrol Acetate 400 mg 10/06/20 12:00 Megestrol 400 Mg/10 Ml Oral Liqd PO QDAY BECKIE Metoprolol Tartrate 5 mg 10/03/20 11:54 Metoprolol Tartrate 5 Mg/5 Ml Inj IV Q6HR PRN Hypertension Metoprolol Tartrate 25 mg 10/04/20 10:00 10/06/20 10:56 Metoprolol Tartrate 25 Mg Tab PO 25 mg BID BECKIE Administration Morphine Sulfate 2 mg 09/28/20 22:32 10/01/20 06:20 Morphine 2 Mg/1 Ml Inj IV 2 mg Q4H PRN Administration Pain, Moderate (4-6) Morphine Sulfate 4 mg 09/28/20 22:32 09/30/20 18:15 Morphine 4 Mg/1 Ml Inj IV 4 mg Q4H PRN Administration Pain , Severe (7-10) Ondansetron HCl 4 mg 09/28/20 22:32 Ondansetron 4 Mg/2 Ml Inj IV Q8H PRN Nausea And Vomiting Polyethylene Glycol 17 gm 09/29/20 04:55 Polyethylene Glycol 3350 17 Gm Powder PO QDAY PRN Constipation Sodium Chloride 10 ml 09/29/20 10:00 10/06/20 10:56 Sodium Chloride 0.9% 10 Ml Flush Syringe IV 10 ml BID BECKIE Administration Sodium Chloride 10 ml 09/28/20 22:26 10/02/20 06:37 Sodium Chloride 0.9% 10 Ml Flush Syringe IV 10 ml PRN PRN Administration LINE FLUSH Nutrition/Malnutrition Assess - Dietary Evaluation Nutrition/Malnutrition Findings: Nutrition Notes Start: 09/30/20 11:42 Freq: Status: Active Protocol: Document 10/04/20 11:55 (Rec: 10/04/20 11:59 [email or web address]) Nutrition Notes Initial or Follow up Reassessment Current Diagnosis CKD (stage V CKD),Diabetes, Sepsis,Heart Failure,Stroke Other Pertinent Diagnosis on HD Current Diet Pureed Labs/Tests POC BG 81-137 Pertinent Medications Reviewed Height 5 ft Weight 71.5 kg [place] Body Weight (kg) 48.18 BMI 30.7 Weight Status Obese Subjective/Other Information FU for intakes. Per RN, pt eating 50% of meals and drinking 1 ONS. Percent of energy/protein needs met: 98%/80% Burn Absent Trauma Absent GI Symptoms None Current % PO Fair (50-74%) Minimum of two criteria No physical signs of malnutrition #1 Nutrition Diagnosis Inadequate energy intake Diagnosis Progress(for reassessment Improved documentation) Is patient on ventilator? No Is Patient Ambulatory and/or Out of Bed No REE-([facility]-confined to bed) 1598.772 Kcal/Kg value to use for calculation 19 Approximate Energy Requirements Using 1359 kcal/Kg Calculation Used for Recommendations Kcal/kg Additional Notes Protein: (>1.2g/kg AdjBW: 60kg ) greater than 72g Fluid: 1 ml/kcal or per MD Nutrition Intervention Change Diet Order: Continue Add Supplement/Snack (indicate name/kcal Nepro BID /protein ) Provides kCal: 850 Provides Protein (gm) 38 Goal #1 Meet at least 75% of protein and energy needs via PO and ONS intakes Anticipated Discharge Needs: Renal, consistent CHO, pureed Follow-Up By: 10/08/20 Additional Comments FU for intakes and ONS tolerance
--- NOTE | 2020-10-06 15:04 | Progress Note ---
Assessment and Plan - Patient Problems (1) Metabolic encephalopathy Current Visit: Yes Status: Acute Plan to address problem: Encephalopathy improved with dialysis. Patient does have baseline dementia which has been progressing. 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 disease or end stage renal disease Current Visit: Yes Status: Chronic Plan to address problem: Follow-up blood pressure on current medications (3) Hypervolemia Current Visit: Yes Status: Chronic Plan to address problem: Improved with fluid removal on dialysis (4) Anemia in chronic kidney disease (CKD) Current Visit: No Status: Chronic Qualifiers: Chronic kidney disease stage: on chronic dialysis Qualified Code(s): N18.6 - End stage renal disease; D63.1 - Anemia in chronic kidney disease; Z99.2 - Dependence on renal dialysis Plan to address problem: Given erythropoietin on dialysis (5) ESRD (end stage renal disease) Current Visit: No Status: Chronic Plan to address problem: Hemodialysis on a Wednesday, Wednesday and Wednesday schedule. Subjective Date of service: 10/06/20 Principal diagnosis: AFIB Interval history: Patient seen lying about in bed. Not really speaking today. Objective - Exam Narrative Exam: Elderly male lying in bed in no acute distress HEENT: NCAT, pink oral mucous membrane Neck: Supple, no venous distention CVS: S1S2 RRR with no murmur, rub or gallop Chest: Clear to auscultation Abdomen: Protuberant, soft, nontender, no organomegaly, bowel sounds are present Extremities: No edema Neuro: Awake, alert no focal deficits - Vital Signs Vital signs: Vital Signs - 12hr 10/06/20 10/06/20 10/06/20 05:27 08:57 09:02 Temperature 97.6 F 96.8 F L Pulse Rate 74 123 H Respiratory 18 Rate Blood Pressure 154/80 161/82 Blood Pressure [Left] O2 Sat by Pulse 96 92 Oximetry 10/06/20 10/06/20 10/06/20 10:55 10:56 13:35 Temperature 97.4 F L Pulse Rate 123 H 123 H 70 Respiratory 18 Rate Blood Pressure 161/82 161/82 Blood Pressure 127/73 [Left] O2 Sat by Pulse 93 Oximetry - Lab 10/05/20 15:34 10/04/20 15:46 Most recent lab results Calcium 9.0 mg/dL (8.4-10.2) 10/04/20 15:46 Medications & Allergies - Medications Allergies/Adverse Reactions: Allergies No Known Allergies Allergy (Verified 09/28/20 20:06) Home Medications: Home Medications Medication Instructions Recorded Confirmed Last Taken Type Epoetin Blayne 10,000 Unit [Procrit] 10,000 unit IV NINO PRN #1 vial 12/02/18 02/05/20 11/20/19 10:00 Rx HYDROcodone/APAP 5-325 [[place] 1 each PO Q6H PRN tablet 11/22/19 02/05/20 Unknown Rx 5-325 mg TAB] polyethylene glycoL 3350 [Miralax 17 gm PO QDAY PRN #30 powd.pack 11/22/19 02/05/20 Unknown Rx 3350] Acetaminophen [Acetaminophen TAB] 650 mg PO Q4H PRN tablet 02/08/20 Unknown Rx Aspirin 325 mg PO QDAY #30 tablet 09/20/20 Unknown Rx AtorvaSTATin [Lipitor] 40 mg PO QHS #30 tablet 09/20/20 Unknown Rx Famotidine [Pepcid] 10 mg PO BID #60 tablet 09/20/20 Unknown Rx Ferric Citrate (Nf) [Auryxia] 420 mg PO TID #90 tab 09/20/20 Unknown Rx Metoprolol [Lopressor TAB] 50 mg PO BID #60 tablet 09/20/20 Unknown Rx amLODIPine 5 mg PO QDAY #30 tablet 09/20/20 Unknown Rx hydrALAZINE [Apresoline TAB] 50 tab PO TID #180 tablet 09/20/20 Unknown Rx Active Medications: Generic Name Dose Route Start Last Admin Trade Name Freq PRN Reason Stop Dose Admin Acetaminophen 650 mg 09/28/20 22:32 Acetaminophen 325 Mg Tab PO Q6H PRN Pain MILD(1-3)/Fever >100.5/RUIZ Hydrocodone Bitart/Acetaminophen 1 each 09/29/20 04:55 09/29/20 22:12 Hydrocodone/Acetaminophen 5-325 Mg Tab PO 1 each Q6H PRN Administration Pain , Severe (7-10) Albumin Human 25 gm 09/28/20 21:12 Albumin Human 25% (25 Gm/100 Ml) Inj IV NINO PRN Hypotension Amlodipine Besylate 5 mg 09/29/20 10:00 10/06/20 10:55 Amlodipine 5 Mg Tab PO 5 mg QDAY BECKIE Administration Apixaban 5 mg 10/01/20 13:00 10/06/20 10:55 Apixaban 5 Mg Tab PO 5 mg Q12HR BECKIE Administration Protocol Aspirin 325 mg 09/29/20 10:00 10/06/20 10:55 Aspirin 325 Mg Tab PO 325 mg QDAY BECKIE Administration Dextrose 50 ml 10/01/20 11:57 10/01/20 16:17 Dextrose 50% In Water (25gm) 50 Ml Syringe IV 20 ml Q30MIN PRN Administration HYPOGLYCEMIA Protocol Famotidine 10 mg 09/29/20 10:00 10/06/20 10:55 Famotidine 10 Mg Tab PO 10 mg BID BECKIE Administration Sodium Chloride 100 mls @ 999 mls/hr 09/30/20 07:30 Nacl 0.9% IV NINO PRN Hypotension Dextrose 1,000 mls @ 42 mls/hr 10/01/20 16:00 10/05/20 17:12 D10w IV 42 mls/hr DIRECT BECKIE Administration Magnesium Hydroxide 30 ml 09/28/20 22:32 Magnesium Hydroxide (Mom) Oral Liqd Udc PO Q4H PRN Constipation Megestrol Acetate 400 mg 10/06/20 12:00 Megestrol 400 Mg/10 Ml Oral Liqd PO QDAY BECKIE Metoprolol Tartrate 5 mg 10/03/20 11:54 Metoprolol Tartrate 5 Mg/5 Ml Inj IV Q6HR PRN Hypertension Metoprolol Tartrate 25 mg 10/04/20 10:00 10/06/20 10:56 Metoprolol Tartrate 25 Mg Tab PO 25 mg BID BECKIE Administration Morphine Sulfate 2 mg 09/28/20 22:32 10/01/20 06:20 Morphine 2 Mg/1 Ml Inj IV 2 mg Q4H PRN Administration Pain, Moderate (4-6) Morphine Sulfate 4 mg 09/28/20 22:32 09/30/20 18:15 Morphine 4 Mg/1 Ml Inj IV 4 mg Q4H PRN Administration Pain , Severe (7-10) Ondansetron HCl 4 mg 09/28/20 22:32 Ondansetron 4 Mg/2 Ml Inj IV Q8H PRN Nausea And Vomiting Polyethylene Glycol 17 gm 09/29/20 04:55 Polyethylene Glycol 3350 17 Gm Powder PO QDAY PRN Constipation Sodium Chloride 10 ml 09/29/20 10:00 10/06/20 10:56 Sodium Chloride 0.9% 10 Ml Flush Syringe IV 10 ml BID BECKIE Administration Sodium Chloride 10 ml 09/28/20 22:26 10/02/20 06:37 Sodium Chloride 0.9% 10 Ml Flush Syringe IV 10 ml PRN PRN Administration LINE FLUSH
[2020-10-06] MEDS: DEXTROSE 10% IN WATER 1,000 ML IV SCH (15:25)
[2020-10-06] MEDS: MEGESTROL 400 MG/10 ML ORAL LIQD PO SCH (17:04)
[2020-10-07 05:53] LABS: Hematocrit 37.6 % (35.5-45.6); Hemoglobin 12.4 gm/dl (11.8-15.2); Mean Corpuscular HGB Conc 33 % (32-34); Mean Corpuscular Volume 108 fl (84-94); Platelet Count 231 K/mm3 (140-440); Red Blood Count 3.49 M/mm3 (3.65-5.03); Red Cell Distribution Width 19.2 % (13.2-15.2)
[2020-10-07] MEDS: APIXABAN 5 MG TAB PO SCH ×2 (09:38→21:47)
[2020-10-07] MEDS: amLODIPine 5 MG TAB PO SCH (09:38)
[2020-10-07] MEDS: METOPROLOL TARTRATE 25 MG TAB PO SCH ×2 (09:38→21:47)
[2020-10-07] MEDS: ASPIRIN 325 MG TAB PO SCH (09:38)
[2020-10-07] MEDS: MEGESTROL 400 MG/10 ML ORAL LIQD PO SCH (09:38)
[2020-10-07] MEDS: FAMOTIDINE 10 MG TAB PO SCH ×2 (09:38→21:47)
--- NOTE | 2020-10-07 10:06 | Progress Note ---
Assessment and Plan - Patient Problems (1) Metabolic encephalopathy Current Visit: Yes Status: Acute Plan to address problem: Encephalopathy improved with dialysis. Patient does have baseline dementia which has been progressing. Awaiting placement at SNF. 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 disease or end stage renal disease Current Visit: Yes Status: Chronic Plan to address problem: Follow-up blood pressure on current medications (3) Hypervolemia Current Visit: Yes Status: Chronic Plan to address problem: Improved with fluid removal on dialysis (4) Anemia in chronic kidney disease (CKD) Current Visit: No Status: Chronic Qualifiers: Chronic kidney disease stage: on chronic dialysis Qualified Code(s): N18.6 - End stage renal disease; D63.1 - Anemia in chronic kidney disease; Z99.2 - Dependence on renal dialysis Plan to address problem: Given erythropoietin on dialysis (5) ESRD (end stage renal disease) Current Visit: No Status: Chronic Plan to address problem: Hemodialysis on a Wednesday, Wednesday and Wednesday schedule. Subjective Date of service: 10/07/20 Principal diagnosis: AF with RVR Interval history: Patient seen lying about in bed. No complaints this morning. He is speaking more. He said "". Objective - Exam Narrative Exam: Elderly male lying in bed in no acute distress HEENT: NCAT, pink oral mucous membrane Neck: Supple, no venous distention CVS: S1S2 RRR with no murmur, rub or gallop Chest: Clear to auscultation Abdomen: Protuberant, soft, nontender, no organomegaly, bowel sounds are present Extremities: No edema Neuro: Awake, alert no focal deficits - Vital Signs Vital signs: Vital Signs - 12hr 10/07/20 10/07/20 10/07/20 00:16 04:13 07:30 Temperature 97.2 F L 97.5 F L 98.6 F Pulse Rate 84 79 85 Respiratory 20 18 18 Rate Blood Pressure 122/80 139/74 134/99 O2 Sat by Pulse 98 99 93 Oximetry 10/07/20 10/07/20 07:59 09:38 Temperature 97.6 F Pulse Rate 85 Respiratory 18 Rate Blood Pressure 144/85 144/85 O2 Sat by Pulse 98 Oximetry - Lab 10/07/20 05:00 10/07/20 05:00 Most recent lab results Calcium 9.0 mg/dL (8.4-10.2) 10/04/20 15:46 Medications & Allergies - Medications Allergies/Adverse Reactions: Allergies No Known Allergies Allergy (Verified 09/28/20 20:06) Home Medications: Home Medications Medication Instructions Recorded Confirmed Last Taken Type Epoetin Blayne 10,000 Unit [Procrit] 10,000 unit IV NINO PRN #1 vial 12/02/18 02/05/20 11/20/19 10:00 Rx HYDROcodone/APAP 5-325 [[place] 1 each PO Q6H PRN tablet 11/22/19 02/05/20 Unknown Rx 5-325 mg TAB] polyethylene glycoL 3350 [Miralax 17 gm PO QDAY PRN #30 powd.pack 11/22/19 02/05/20 Unknown Rx 3350] Acetaminophen [Acetaminophen TAB] 650 mg PO Q4H PRN tablet 02/08/20 Unknown Rx Aspirin 325 mg PO QDAY #30 tablet 09/20/20 Unknown Rx AtorvaSTATin [Lipitor] 40 mg PO QHS #30 tablet 09/20/20 Unknown Rx Famotidine [Pepcid] 10 mg PO BID #60 tablet 09/20/20 Unknown Rx Ferric Citrate (Nf) [Auryxia] 420 mg PO TID #90 tab 09/20/20 Unknown Rx Metoprolol [Lopressor TAB] 50 mg PO BID #60 tablet 09/20/20 Unknown Rx amLODIPine 5 mg PO QDAY #30 tablet 09/20/20 Unknown Rx hydrALAZINE [Apresoline TAB] 50 tab PO TID #180 tablet 09/20/20 Unknown Rx Active Medications: Generic Name Dose Route Start Last Admin Trade Name Jassonq PRN Reason Stop Dose Admin Acetaminophen 650 mg 09/28/20 22:32 Acetaminophen 325 Mg Tab PO Q6H PRN Pain MILD(1-3)/Fever >100.5/RUIZ Hydrocodone Bitart/Acetaminophen 1 each 09/29/20 04:55 09/29/20 22:12 Hydrocodone/Acetaminophen 5-325 Mg Tab PO 1 each Q6H PRN Administration Pain , Severe (7-10) Albumin Human 25 gm 09/28/20 21:12 Albumin Human 25% (25 Gm/100 Ml) Inj IV NINO PRN Hypotension Amlodipine Besylate 5 mg 09/29/20 10:00 10/07/20 09:38 Amlodipine 5 Mg Tab PO 5 mg QDAY BECKIE Administration Apixaban 5 mg 10/01/20 13:00 10/07/20 09:38 Apixaban 5 Mg Tab PO 5 mg Q12HR BECKIE Administration Protocol Aspirin 325 mg 09/29/20 10:00 10/07/20 09:38 Aspirin 325 Mg Tab PO 325 mg QDAY BECKIE Administration Dextrose 50 ml 10/01/20 11:57 10/01/20 16:17 Dextrose 50% In Water (25gm) 50 Ml Syringe IV 20 ml Q30MIN PRN Administration HYPOGLYCEMIA Protocol Famotidine 10 mg 09/29/20 10:00 10/07/20 09:38 Famotidine 10 Mg Tab PO 10 mg BID BECKIE Administration Sodium Chloride 100 mls @ 999 mls/hr 09/30/20 07:30 Nacl 0.9% IV NINO PRN Hypotension Dextrose 1,000 mls @ 42 mls/hr 10/01/20 16:00 10/06/20 15:25 D10w IV 42 mls/hr DIRECT BECKIE Administration Magnesium Hydroxide 30 ml 09/28/20 22:32 Magnesium Hydroxide (Mom) Oral Liqd Udc PO Q4H PRN Constipation Megestrol Acetate 400 mg 10/06/20 12:00 10/07/20 09:38 Megestrol 400 Mg/10 Ml Oral Liqd PO 400 mg QDAY BECKIE Administration Metoprolol Tartrate 5 mg 10/03/20 11:54 Metoprolol Tartrate 5 Mg/5 Ml Inj IV Q6HR PRN Hypertension Metoprolol Tartrate 25 mg 10/04/20 10:00 10/07/20 09:38 Metoprolol Tartrate 25 Mg Tab PO 25 mg BID BECKIE Administration Morphine Sulfate 2 mg 09/28/20 22:32 10/01/20 06:20 Morphine 2 Mg/1 Ml Inj IV 2 mg Q4H PRN Administration Pain, Moderate (4-6) Morphine Sulfate 4 mg 09/28/20 22:32 09/30/20 18:15 Morphine 4 Mg/1 Ml Inj IV 4 mg Q4H PRN Administration Pain , Severe (7-10) Ondansetron HCl 4 mg 09/28/20 22:32 Ondansetron 4 Mg/2 Ml Inj IV Q8H PRN Nausea And Vomiting Polyethylene Glycol 17 gm 09/29/20 04:55 Polyethylene Glycol 3350 17 Gm Powder PO QDAY PRN Constipation Sodium Chloride 10 ml 09/29/20 10:00 10/06/20 22:02 Sodium Chloride 0.9% 10 Ml Flush Syringe IV 10 ml BID BECKIE Administration Sodium Chloride 10 ml 09/28/20 22:26 10/02/20 06:37 Sodium Chloride 0.9% 10 Ml Flush Syringe IV 10 ml PRN PRN Administration LINE FLUSH
--- NOTE | 2020-10-07 11:10 | Discharge Summary ---
Providers - Providers Date of Admission: 09/30/20 09:43 Attending physician: JOSE ALEJANDRO SIMS MD 09/28/20 22:27 Consult to Dietitian/Nutrition [CONS] Routine Physician Instructions: Reason For Exam: Reason for Consult: Diet education Consult to Physician [CONS] Routine Comment: Consulting Provider: ALETHA VELAZQUEZ Physician Instructions: Reason For Exam: ESRD- ON DIALYSIS 10/01/20 10:41 Consult to Physician [CONS] Routine Comment: Consulting Provider: TETE EDOUARD Physician Instructions: Reason For Exam: atrial fib 10/01/20 11:43 Physical Therapy Evaluation and Treat [CONS] Routine Comment: abnormal gait Reason For Exam: PT to evaland treat 10/01/20 11:44 Occupational Therapy Evaluate and Treat [CONS] Routine Comment: generalized weakness,Altered mental staus Reason For Exam: OT to evaland treat Primary care physician: ALBERT RUDD Hospitalization Condition: Fair Disposition: DC-30 STILL A PATIENT Core Measure Documentation - Palliative Care Palliative Care/ Comfort Measures: Not Applicable - Core Measures Any of the following diagnoses?: none Exam - Constitutional Vitals: Temp Pulse Resp BP Pulse Ox 97.6 F 85 18 144/85 98 10/07/20 07:59 10/07/20 07:59 10/07/20 07:59 10/07/20 09:38 10/07/20 07:59 Plan Follow up with: ALBERT RUDD MD [Primary Care Provider] - 7 Days
[2020-10-07] MEDS: EPOETIN ALFA-EPBX 10,000 UNIT/1 ML VIAL IV PRN (14:28)
--- NOTE | 2020-10-07 15:23 | Progress Note ---
Assessment and Plan Assessment and plan: -- Acute metabolic encephalopathy Likely due to uremia and underlying history of dementia CT head without contrast no acute abnormality Neurochecks and supportive care Continue aspirin and statin Continue to provide supportive care Of note patient had prior admission with similar presentation and work-up were essentially normal --Dementia, history of Patient does have history of dementia and apparently is becoming progressive -- Atrial fibrillation with RVR He had some IV diltiazem in the ER with rate control. We will resume routine home medications and monitor EKG. --NSTEMI (non-ST elevated myocardial infarction) type II In the setting of end-stage renal disease Chronic elevation of troponins Echo; EF 40 to 45%, continue aspirin And statin --Chronic systolic CHF, EF 40 to 45% Continue aspirin and statin, volume control with hemodialysis --Recurrent hypoglycemia due to poor oral intake Patient placed on D10W -- ESRD on dialysis Hemodialysis per schedule --Hypertension Continue current antihypertensives --GERD; Protonix 40 mg p.o. daily. --Full CODE STATUS -- DVT prophylaxis: s/p Heparin 5000 units subcu every 8 hours. Diet: Will need continued assistance by nursing to ensure patient eats entire meals and gets enough calories throughout the day. Dispo: Awaiting SNF placement. History Interval history: Daily clinical course: 09/29/20: Patient refused to eat, mental status remain unchanged, does not make any eye contact. Placed on low volume D5 normal saline, monitor clinically. Patient noted to be in normal sinus rhythm on telemetry 09/30/20: Clinically remains unchanged, patient remains lethargic with eyes open and does not cooperate with the exam. Psych consulted, will follow recommendation. We will transfer to telemetry. Follow clinically 10/01/20; patient again flipped back to atrial fibrillation today, cardiology consulted, started on Eliquis twice daily. Patient remains confused and lethargic. Continue supportive care. Hypoglycemia protocol as patient with low oral intake. Continue D5 normal saline-if continues to be hypoglycemic may need to change to D10. 10/02/20: Patient more alert and verbal today. But remains confused. Oriented to person only. Discussed plan of care with case management and patient's caregiver. Patient dementia seems to be worsening, and requires more supportive care. Caregiver requesting for [facility] placement. integrated logistics support manager notified a nd working on placement. Speech therapy evaluated the patient, will start on pured diet. Follow CBC BMP. 10/03/20: need screening COVID19 test for placement. pt resting peacefully and remains confused. Continue supportive care, pending SNF placement. 10/04/20: Pending SNF placement. 10/05/20: Pending SNF placement. 10/06/20: Resting comfortably. Ordered NANETTE sarmiento staff advised to continue feeding and supplementing patient diet, awaiting snf placement. 10/07/20: Resting comfortably. Discussed with nursing staff the patient must be fed so that he eats food brought to him. Advised staff to continue monitoring especially for signs of diminished appetite or difficulty swallowing food. Discussed placement to SNF with with case management. Still awaiting authorization. Hospitalist Physical - Physical exam Narrative exam: General: No Apparent Distress Neck: Positive: neck supple Cardiac: Positive: irregularly irregular Lungs: Positive: Normal Breath Sounds Neuro: Positive: Grossly Intact Abdomen: Positive: Unremarkable, Soft Skin: Negative: Rash, Wound Musculoskeletal: No Pain Extremities: Present: upper extr. pulses, lower extr. pulses, edema, +1 Edema Psych: alert and oriented x1. person - Constitutional Vitals: Temp Pulse Resp BP Pulse Ox 97.6 F 68 16 103/65 99 10/07/20 13:50 10/07/20 14:15 10/07/20 13:50 10/07/20 14:15 10/07/20 13:50 General appearance: Present: no acute distress Results - Labs CBC & Chem 7: 10/07/20 05:00 10/07/20 05:00 Labs: Laboratory Last Values WBC 5.8 K/mm3 (4.5-11.0) 10/07/20 05:00 RBC 3.49 M/mm3 (3.65-5.03) L 10/07/20 05:00 Hgb 12.4 gm/dl (11.8-15.2) 10/07/20 05:00 Hct 37.6 % (35.5-45.6) 10/07/20 05:00 MCV 108 fl (84-94) H 10/07/20 05:00 MCH 36 pg (28-32) H 10/07/20 05:00 MCHC 33 % (32-34) 10/07/20 05:00 RDW 19.2 % (13.2-15.2) H 10/07/20 05:00 Plt Count 231 K/mm3 (140-440) 10/07/20 05:00 Lymph % (Auto) 40.4 % (13.4-35.0) H 09/30/20 04:52 [place] % (Auto) 10.9 % (0.0-7.3) H 09/30/20 04:52 Eos % (Auto) 5.4 % (0.0-4.3) H 09/30/20 04:52 Baso % (Auto) 0.9 % (0.0-1.8) 09/30/20 04:52 Lymph # (Auto) 1.5 K/mm3 (1.2-5.4) 09/30/20 04:52 [place] # (Auto) 0.4 K/mm3 (0.0-0.8) 09/30/20 04:52 Eos # (Auto) 0.2 K/mm3 (0.0-0.4) 09/30/20 04:52 Baso # (Auto) 0.0 K/mm3 (0.0-0.1) 09/30/20 04:52 Seg Neutrophils % 42.4 % (40.0-70.0) 09/30/20 04:52 Seg Neutrophils # 1.5 K/mm3 (1.8-7.7) L 09/30/20 04:52 PT 14.7 Sec. (12.2-14.9) 10/01/20 19:20 INR 1.10 (0.87-1.13) 10/01/20 19:20 APTT 33.4 Sec. (24.2-36.6) 10/01/20 19:20 Sodium 132 mmol/L (137-145) L D 10/04/20 15:46 Potassium 5.8 mmol/L (3.6-5.0) H D 10/04/20 15:46 Chloride 95.6 mmol/L (98-107) L 10/04/20 15:46 Carbon Dioxide 27 mmol/L (22-30) 10/04/20 15:46 Anion Gap 15 mmol/L 10/04/20 15:46 BUN 31 mg/dL (9-20) H 10/04/20 15:46 Creatinine 7.4 mg/dL (0.8-1.3) H 10/07/20 05:00 Estimated GFR 9 ml/min 10/07/20 05:00 BUN/Creatinine Ratio 4 % 10/04/20 15:46 Glucose 98 mg/dL (75-100) 10/04/20 15:46 POC Glucose 110 mg/dL (70-105) H 10/07/20 11:46 Lactic Acid 1.30 mmol/L (0.7-2.0) 09/28/20 19:16 Calcium 9.0 mg/dL (8.4-10.2) 10/04/20 15:46 Total Bilirubin 0.50 mg/dL (0.1-1.2) 09/30/20 04:58 Direct Bilirubin < 0.2 mg/dL (0-0.2) 09/30/20 04:58 Indirect Bilirubin 0.3 mg/dL 09/30/20 04:58 AST 65 units/L (5-40) H 09/30/20 04:58 ALT 150 units/L (7-56) H 09/30/20 04:58 Alkaline Phosphatase 63 units/L (35-129) 09/30/20 04:58 Ammonia 27.0 umol/L (25-60) 09/28/20 19:16 Total Protein 6.2 g/dL (6.3-8.2) L 09/30/20 04:58 Albumin 3.2 g/dL (3.9-5) L 09/30/20 04:58 Albumin/Globulin Ratio 1.1 % 09/30/20 04:58 TSH 5.790 mlU/mL (0.270-4.200) H 09/28/20 19:16 Free T4 1.13 ng/dL (0.76-1.46) 09/29/20 18:01 Nasal Screen MRSA (PCR) Negative (Negative) 10/01/20 Unknown Coronavirus (PCR) Negative (Negative) 10/03/20 Unknown David/IV: Voiding Method Incontinent Active Medications - Current Medications Current Medications: Generic Name Dose Route Start Last Admin Trade Name Freq PRN Reason Stop Dose Admin Acetaminophen 650 mg 09/28/20 22:32 Acetaminophen 325 Mg Tab PO Q6H PRN Pain MILD(1-3)/Fever >100.5/RUIZ Hydrocodone Bitart/Acetaminophen 1 each 09/29/20 04:55 09/29/20 22:12 Hydrocodone/Acetaminophen 5-325 Mg Tab PO 1 each Q6H PRN Administration Pain , Severe (7-10) Albumin Human 25 gm 09/28/20 21:12 Albumin Human 25% (25 Gm/100 Ml) Inj IV NINO PRN Hypotension Amlodipine Besylate 5 mg 09/29/20 10:00 10/07/20 09:38 Amlodipine 5 Mg Tab PO 5 mg QDAY BECKIE Administration Apixaban 5 mg 10/01/20 13:00 10/07/20 09:38 Apixaban 5 Mg Tab PO 5 mg Q12HR BECKIE Administration Protocol Aspirin 325 mg 09/29/20 10:00 10/07/20 09:38 Aspirin 325 Mg Tab PO 325 mg QDAY BECKIE Administration Dextrose 50 ml 10/01/20 11:57 10/01/20 16:17 Dextrose 50% In Water (25gm) 50 Ml Syringe IV 20 ml Q30MIN PRN Administration HYPOGLYCEMIA Protocol Famotidine 10 mg 09/29/20 10:00 10/07/20 09:38 Famotidine 10 Mg Tab PO 10 mg BID BECKIE Administration Sodium Chloride 100 mls @ 999 mls/hr 09/30/20 07:30 Nacl 0.9% IV NINO PRN Hypotension Dextrose 1,000 mls @ 42 mls/hr 10/01/20 16:00 10/06/20 15:25 D10w IV 42 mls/hr DIRECT BECKIE Administration Magnesium Hydroxide 30 ml 09/28/20 22:32 Magnesium Hydroxide (Mom) Oral Liqd Udc PO Q4H PRN Constipation Megestrol Acetate 400 mg 10/06/20 12:00 10/07/20 09:38 Megestrol 400 Mg/10 Ml Oral Liqd PO 400 mg QDAY BECKIE Administration Metoprolol Tartrate 5 mg 10/03/20 11:54 Metoprolol Tartrate 5 Mg/5 Ml Inj IV Q6HR PRN Hypertension Metoprolol Tartrate 25 mg 10/04/20 10:00 10/07/20 09:38 Metoprolol Tartrate 25 Mg Tab PO 25 mg BID BECKIE Administration Morphine Sulfate 2 mg 09/28/20 22:32 10/01/20 06:20 Morphine 2 Mg/1 Ml Inj IV 2 mg Q4H PRN Administration Pain, Moderate (4-6) Morphine Sulfate 4 mg 09/28/20 22:32 09/30/20 18:15 Morphine 4 Mg/1 Ml Inj IV 4 mg Q4H PRN Administration Pain , Severe (7-10) Ondansetron HCl 4 mg 09/28/20 22:32 Ondansetron 4 Mg/2 Ml Inj IV Q8H PRN Nausea And Vomiting Polyethylene Glycol 17 gm 09/29/20 04:55 Polyethylene Glycol 3350 17 Gm Powder PO QDAY PRN Constipation Sodium Chloride 10 ml 09/29/20 10:00 10/06/20 22:02 Sodium Chloride 0.9% 10 Ml Flush Syringe IV 10 ml BID BECKIE Administration Sodium Chloride 10 ml 09/28/20 22:26 10/02/20 06:37 Sodium Chloride 0.9% 10 Ml Flush Syringe IV 10 ml PRN PRN Administration LINE FLUSH Nutrition/Malnutrition Assess - Dietary Evaluation Nutrition/Malnutrition Findings: Nutrition Notes Start: 09/30/20 11:42 Freq: Status: Active Protocol: Document 10/04/20 11:55 (Rec: 10/04/20 11:59 [email or web address]) Nutrition Notes Initial or Follow up Reassessment Current Diagnosis CKD (stage V CKD),Diabetes, Sepsis,Heart Failure,Stroke Other Pertinent Diagnosis on HD Current Diet Pureed Labs/Tests POC BG 81-137 Pertinent Medications Reviewed Height 5 ft Weight 71.5 kg Reeves Body Weight (kg) 48.18 BMI 30.7 Weight Status Obese Subjective/Other Information FU for intakes. Per RN, pt eating 50% of meals and drinking 1 ONS. Percent of energy/protein needs met: 98%/80% Burn Absent Trauma Absent GI Symptoms None Current % PO Fair (50-74%) Minimum of two criteria No physical signs of malnutrition #1 Nutrition Diagnosis Inadequate energy intake Diagnosis Progress(for reassessment Improved documentation) Is patient on ventilator? No Is Patient Ambulatory and/or Out of Bed No REE-([facility]-confined to bed) 1598.772 Kcal/Kg value to use for calculation 19 Approximate Energy Requirements Using 1359 kcal/Kg Calculation Used for Recommendations Kcal/kg Additional Notes Protein: (>1.2g/kg AdjBW: 60kg ) greater than 72g Fluid: 1 ml/kcal or per MD Nutrition Intervention Change Diet Order: Continue Add Supplement/Snack (indicate name/kcal Nepro BID /protein ) Provides kCal: 850 Provides Protein (gm) 38 Goal #1 Meet at least 75% of protein and energy needs via PO and ONS intakes Anticipated Discharge Needs: Renal, consistent CHO, pureed Follow-Up By: 10/08/20 Additional Comments FU for intakes and ONS tolerance
[2020-10-07] MEDS: MORPHINE 4 MG/1 ML INJ IV PRN (16:50)
[2020-10-08] MEDS: DEXTROSE 10% IN WATER 1,000 ML IV SCH (03:07)
[2020-10-08] MEDS: MEGESTROL 400 MG/10 ML ORAL LIQD PO SCH (09:43)
[2020-10-08] MEDS: ASPIRIN 325 MG TAB PO SCH (09:43)
[2020-10-08] MEDS: amLODIPine 5 MG TAB PO SCH (09:43)
[2020-10-08] MEDS: FAMOTIDINE 10 MG TAB PO SCH (09:43)
[2020-10-08] MEDS: METOPROLOL TARTRATE 25 MG TAB PO SCH (09:44)
[2020-10-08] MEDS: APIXABAN 5 MG TAB PO SCH (09:45)
--- NOTE | 2020-10-08 11:21 | Progress Note ---
Assessment and Plan - Patient Problems (1) Metabolic encephalopathy Current Visit: Yes Status: Acute Plan to address problem: Encephalopathy improved with dialysis. Patient does have baseline dementia which has been progressing. Awaiting placement at SNF. 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 disease or end stage renal disease Current Visit: Yes Status: Chronic Plan to address problem: Follow-up blood pressure on current medications (3) Hypervolemia Current Visit: Yes Status: Chronic Plan to address problem: Improved with fluid removal on dialysis (4) Anemia in chronic kidney disease (CKD) Current Visit: No Status: Chronic Qualifiers: Chronic kidney disease stage: on chronic dialysis Qualified Code(s): N18.6 - End stage renal disease; D63.1 - Anemia in chronic kidney disease; Z99.2 - Dependence on renal dialysis Plan to address problem: Given erythropoietin on dialysis (5) ESRD (end stage renal disease) Current Visit: No Status: Chronic Plan to address problem: Hemodialysis on a Wednesday, Wednesday and Wednesday schedule. Subjective Date of service: 10/08/20 Principal diagnosis: AF with RVR Interval history: Patient seen lying about in bed. No complaints this morning. Less vocal this morning Objective - Exam Narrative Exam: Elderly male lying in bed in no acute distress HEENT: NCAT, pink oral mucous membrane Neck: Supple, no venous distention CVS: S1S2 RRR with no murmur, rub or gallop Chest: Clear to auscultation Abdomen: Protuberant, soft, nontender, no organomegaly, bowel sounds are present Extremities: No edema Neuro: Awake, alert no focal deficits - Vital Signs Vital signs: Vital Signs - 12hr 10/08/20 10/08/20 03:15 08:23 Temperature 97.8 F 98.2 F Pulse Rate 66 81 Respiratory 20 18 Rate Blood Pressure 135/78 136/89 O2 Sat by Pulse 97 96 Oximetry - Lab 10/07/20 05:00 10/07/20 05:00 Most recent lab results Calcium 9.0 mg/dL (8.4-10.2) 10/04/20 15:46 Medications & Allergies - Medications Allergies/Adverse Reactions: Allergies No Known Allergies Allergy (Verified 09/28/20 20:06) Home Medications: Home Medications Medication Instructions Recorded Confirmed Last Taken Type Epoetin Blayne 10,000 Unit [Procrit] 10,000 unit IV NINO PRN #1 vial 09/13/19 11/ 16/20 08/31/20 10:00 Rx HYDROcodone/APAP 5-325 [Orange 1 each PO Q6H PRN tablet 11/22/19 02/05/20 Unknown Rx 5-325 mg TAB] polyethylene glycoL 3350 [Miralax 17 gm PO QDAY PRN #30 powd.pack 11/22/19 02/05/20 Unknown Rx 3350] Acetaminophen [Acetaminophen TAB] 650 mg PO Q4H PRN tablet 02/08/20 Unknown Rx Aspirin 325 mg PO QDAY #30 tablet 09/20/20 Unknown Rx AtorvaSTATin [Lipitor] 40 mg PO QHS #30 tablet 09/20/20 Unknown Rx Famotidine [Pepcid] 10 mg PO BID #60 tablet 09/20/20 Unknown Rx Ferric Citrate (Nf) [Auryxia] 420 mg PO TID #90 tab 09/20/20 Unknown Rx Metoprolol [Lopressor TAB] 50 mg PO BID #60 tablet 09/20/20 Unknown Rx amLODIPine 5 mg PO QDAY #30 tablet 09/20/20 Unknown Rx hydrALAZINE [Apresoline TAB] 50 tab PO TID #180 tablet 09/20/20 Unknown Rx Active Medications: Generic Name Dose Route Start Last Admin Trade Name Freq PRN Reason Stop Dose Admin Acetaminophen 650 mg 09/28/20 22:32 Acetaminophen 325 Mg Tab PO Q6H PRN Pain MILD(1-3)/Fever >100.5/RUIZ Hydrocodone Bitart/Acetaminophen 1 each 09/29/20 04:55 09/29/20 22:12 Hydrocodone/Acetaminophen 5-325 Mg Tab PO 1 each Q6H PRN Administration Pain , Severe (7-10) Albumin Human 25 gm 09/28/20 21:12 Albumin Human 25% (25 Gm/100 Ml) Inj IV NINO PRN Hypotension Amlodipine Besylate 5 mg 09/29/20 10:00 10/07/20 09:38 Amlodipine 5 Mg Tab PO 5 mg QDAY BECKIE Administration Apixaban 5 mg 10/01/20 13:00 10/07/20 21:47 Apixaban 5 Mg Tab PO 5 mg Q12HR BECKIE Administration Protocol Aspirin 325 mg 09/29/20 10:00 10/07/20 09:38 Aspirin 325 Mg Tab PO 325 mg QDAY BECKIE Administration Dextrose 50 ml 10/01/20 11:57 10/01/20 16:17 Dextrose 50% In Water (25gm) 50 Ml Syringe IV 20 ml Q30MIN PRN Administration HYPOGLYCEMIA Protocol Famotidine 10 mg 09/29/20 10:00 10/07/20 21:47 Famotidine 10 Mg Tab PO 10 mg BID BECKIE Administration Sodium Chloride 100 mls @ 999 mls/hr 09/30/20 07:30 Nacl 0.9% IV NINO PRN Hypotension Dextrose 1,000 mls @ 42 mls/hr 10/01/20 16:00 10/08/20 03:07 D10w IV 42 mls/hr DIRECT BECKIE Administration Magnesium Hydroxide 30 ml 09/28/20 22:32 Magnesium Hydroxide (Mom) Oral Liqd Udc PO Q4H PRN Constipation Megestrol Acetate 400 mg 10/06/20 12:00 10/07/20 09:38 Megestrol 400 Mg/10 Ml Oral Liqd PO 400 mg QDAY BECKIE Administration Metoprolol Tartrate 5 mg 10/03/20 11:54 Metoprolol Tartrate 5 Mg/5 Ml Inj IV Q6HR PRN Hypertension Metoprolol Tartrate 25 mg 10/04/20 10:00 10/07/20 21:47 Metoprolol Tartrate 25 Mg Tab PO 25 mg BID BECKIE Administration Morphine Sulfate 2 mg 09/28/20 22:32 10/01/20 06:20 Morphine 2 Mg/1 Ml Inj IV 2 mg Q4H PRN Administration Pain, Moderate (4-6) Morphine Sulfate 4 mg 09/28/20 22:32 10/07/20 16:50 Morphine 4 Mg/1 Ml Inj IV 4 mg Q4H PRN Administration Pain , Severe (7-10) Ondansetron HCl 4 mg 09/28/20 22:32 Ondansetron 4 Mg/2 Ml Inj IV Q8H PRN Nausea And Vomiting Polyethylene Glycol 17 gm 09/29/20 04:55 Polyethylene Glycol 3350 17 Gm Powder PO QDAY PRN Constipation Sodium Chloride 10 ml 09/29/20 10:00 10/07/20 21:50 Sodium Chloride 0.9% 10 Ml Flush Syringe IV 10 ml BID BECKIE Administration Sodium Chloride 10 ml 09/28/20 22:26 10/08/20 03:07 Sodium Chloride 0.9% 10 Ml Flush Syringe IV 10 ml PRN PRN Administration LINE FLUSH
[2020-10-08 12:18] VITALS: BP 128/73
--- NOTE | 2020-10-08 14:56 | Progress Note ---
Assessment and Plan -- Acute metabolic encephalopathy Likely due to uremia and underlying history of dementia CT head without contrast no acute abnormality Neurochecks and supportive care Continue aspirin and statin Continue to provide supportive care Of note patient had prior admission with similar presentation and work-up were essentially normal --Dementia, history of Patient does have history of dementia and apparently is becoming progressive -- Atrial fibrillation with RVR He had some IV diltiazem in the ER with rate control. We will resume routine home medications and monitor EKG. --NSTEMI (non-ST elevated myocardial infarction) type II In the setting of end-stage renal disease Chronic elevation of troponins Echo; EF 40 to 45%, continue aspirin And statin --Chronic systolic CHF, EF 40 to 45% Continue aspirin and statin, volume control with hemodialysis --Recurrent hypoglycemia due to poor oral intake Patient placed on D10W -- ESRD on dialysis Hemodialysis per schedule --Hypertension Continue current antihypertensives --GERD; Protonix 40 mg p.o. daily. --Full CODE STATUS -- DVT prophylaxis: s/p Heparin 5000 units subcu every 8 hours. Daily clinical course: 09/29/20: Patient refused to eat, mental status remain unchanged, does not make any eye contact. Placed on low volume D5 normal saline, monitor clinically. Patient noted to be in normal sinus rhythm on telemetry 09/30/20: Clinically remains unchanged, patient remains lethargic with eyes open and does not cooperate with the exam. Psych consulted, will follow recommendation. We will transfer to telemetry. Follow clinically 10/01/20; patient again flipped back to atrial fibrillation today, cardiology consulted, started on Eliquis twice daily. Patient remains confused and lethargic. Continue supportive care. Hypoglycemia protocol as patient with low oral intake. Continue D5 normal saline-if continues to be hypoglycemic may need to change to D10. 10/02/20: Patient more alert and verbal today. But remains confused. Oriented to person only. Discussed plan of care with case management and patient's caregiver. Patient dementia seems to be worsening, and requires more supportive care. Caregiver requesting for residential placement. automotive center manager notified and working on placement. Speech therapy evaluated the patient, will start on pured diet. Follow CBC BMP. 10/03/20: need screening COVID19 test for placement. pt resting peacefully and remains confused. Continue supportive care, pending SNF placement. Subjective Date of service: 10/08/20 Principal diagnosis: AF with RVR Objective - Constitutional Vitals: Vital Signs - 12hr 10/08/20 10/08/20 10/08/20 03:15 08:23 09:43 Temperature 97.8 F 98.2 F Pulse Rate 66 81 81 Respiratory 20 18 Rate Blood Pressure 135/78 136/89 136/81 O2 Sat by Pulse 97 96 Oximetry 10/08/20 10/08/20 10/08/20 09:44 10:00 11:23 Temperature 97.2 F L Pulse Rate 81 79 107 H Respiratory 18 Rate Blood Pressure 136/81 128/73 O2 Sat by Pulse 92 Oximetry - Labs CBC & Chem 7: 10/07/20 05:00 10/07/20 05:00 Labs: Abnormal lab results 10/08/20 10/08/20 Range/Units 12:31 13:46 POC Glucose 55 L 62 L (70-105) mg/dL
--- NOTE | 2020-10-08 16:22 | Discharge Summary ---
Providers - Providers Date of Admission: 09/30/20 09:43 Date of discharge: 10/08/20 Attending physician: VINAYAK CHESTER 09/28/20 22:27 Consult to Dietitian/Nutrition [CONS] Routine Physician Instructions: Reason For Exam: Reason for Consult: Diet education Consult to Physician [CONS] Routine Comment: Consulting Provider: ALETHA SIMMONS Physician Instructions: Reason For Exam: ESRD- ON DIALYSIS 10/01/20 10:41 Consult to Physician [CONS] Routine Comment: Consulting Provider: TETE EDOUARD Physician Instructions: Reason For Exam: atrial fib 10/01/20 11:43 Physical Therapy Evaluation and Treat [CONS] Routine Comment: abnormal gait Reason For Exam: PT to evaland treat 10/01/20 11:44 Occupational Therapy Evaluate and Treat [CONS] Routine Comment: generalized weakness,Altered mental staus Reason For Exam: OT to evaland treat 10/08/20 14:56 Physical Therapy Evaluation and Treat [CONS] Routine Comment: Reason For Exam: Debility Primary care physician: ALBERT RUDD Hospitalization Condition: Fair Pertinent studies: Chest x-ray, head CT Hospital course: 70-year-old male with known history of end-stage renal disease HD on Mondays, Wednesdays and Fridays, ? CVA, chronic anemia, diabetes mellitus, hypertension, history of aortic stenosis, dementia, atrial fibrillation who presents to the emergency room with changes in mental status, nausea and vomiting and shortness of breath. Work-up in the emergency room : chest x-ray reveals pulmonary edema. EKG reveals A. fib with RVR. Patient was given IV diltiazem with significant improvement in his heart rate. [employer] Operator Dr. Simmons was consulted for immediate dialysis and patient was admitted for further evaluation and Mx. . Daily clinical course: 09/29/20: Patient refused to eat, mental status remain unchanged, does not make any eye contact. Placed on low volume D5 normal saline, monitor clinically. Patient noted to be in normal sinus rhythm on telemetry 09/30/20: Clinically remains unchanged, patient remains lethargic with eyes open and does not cooperate with the exam. Psych consulted, will follow recommendation. We will transfer to telemetry. Follow clinically 10/01/20; patient again flipped back to atrial fibrillation today, cardiology consulted, started on Eliquis twice daily. Patient remains confused and lethargic. Continue supportive care. Hypoglycemia protocol as patient with low oral intake. Continue D5 normal saline-if continues to be hypoglycemic may ne ed to change to D10. 10/02/20: Patient more alert and verbal today. But remains confused. Oriented to person only. Discussed plan of care with case management and patient's caregiver. Patient dementia seems to be worsening, and requires more supportive care. Caregiver requesting for skilled nursing placement. poultry barn manager notified and working on placement. Speech therapy evaluated the patient, will start on pured diet. Follow CBC BMP. 10/03/20: need screening COVID19 test for placement. pt resting peacefully and remains confused. Continue supportive care, pending SNF placement. 10/04/20: Pending SNF placement. 10/05/20: Pending SNF placement. 10/06/20: Resting comfortably. Ordered guillermina, medical staff assistant advised to continue feeding and supplementing patient diet, awaiting snf placement. 10/07/20: Resting comfortably. Discussed with nursing staff the patient must be fed so that he eats food brought to him. Advised staff to continue monitoring especially for signs of diminished appetite or difficulty swallowing food. Discussed placement to SNF with with case management. Still awaiting authorization. 10/08/20: patient accepted to [facility]. Patient to continue pured diet and current routine medications. Will discharge patient to SNF in stable condition, CM to address transportation. A/P -- Acute metabolic encephalopathy Likely due to uremia and underlying history of dementia CT head without contrast no acute abnormality Neurochecks and supportive care Pt on eliquis Continue to provide supportive care Of note patient had prior admission with similar presentation and work-up were essentially normal --Dementia, history of Patient does have history of dementia and apparently is becoming progressive Continue supportive care -- Atrial fibrillation with RVR He had some IV diltiazem in the ER with rate control. Continue routine home medications and anticoagulation --NSTEMI (non-ST elevated myocardial infarction) type II In the setting of end-stage renal disease Chronic elevation of troponins, Lexiscan stress MPI 11/2018 - negative for ischemia. Echo; EF 40 to 45%, conservative management per cardiology --Chronic systolic CHF, EF 40 to 45% Continue aspirin and statin, volume control with hemodialysis --Recurrent hypoglycemia due to poor oral intake s/p D10W -- ESRD on dialysis Hemodialysis per schedule --Hypertension Continue current antihypertensives --Transaminitis, continue to hold statin --GERD; Protonix 40 mg p.o. daily. --Full CODE STATUS -- DVT prophylaxis: s/p Heparin 5000 units subcu every 8 hours. Diet: Will need continued assistance by nursing to ensure patient eats entire meals and gets enough calories throughout the day. Dispo: SNF placement. Disposition: DC-30 STILL A PATIENT Final Discharge Diagnosis (Prints w/discharge instructions): --Acute metabolic encephalopathy. --Advanced dementia, likely vascular. --Atrial fibrillation with RVR. --NSTEMI type II. --Chronic systolic CHF, EF 40 to 45%. --Transaminitis, continue to hold statin. --Recurrent hypoglycemia, resolved. --End-stage renal disease on hemodialysis. --Hypertension, stable. --History of GERD Time spent for discharge: 34 minutes Core Measure Documentation - Palliative Care Palliative Care/ Comfort Measures: Not Applicable - Core Measures Any of the following diagnoses?: history only Exam - Physical Exam Narrative exam: GENERAL: well-developed and well-nourished -Turkish male lying on bed appeared to be in no discomfort, HEENT: Normocephalic. Atraumatic. No conjunctival congestion or icterus. Patient has moist mucous membranes. NECK: Supple. Trachea midline. CHEST/LUNGS: Clear to auscultated bilaterally, breathing nonlabored. No wheezes crackles or rhonchi. HEART/CARDIOVASCULAR: Regular in rate and rhythm. S1 and S2 positive. ABDOMEN: Abdomen is soft, nontender. Patient has normal bowel sounds. SKIN: There is no rash. Warm and dry. NEURO: Patient able to answer questions but disoriented, follow commands, no focal deficits MUSCULOSKELETAL: No joint effusion or tenderness. EXTRIMITY: No edema, no cyanosis or clubbing. PSYCH: Cooperative. - Constitutional Vitals: Temp Pulse Resp BP Pulse Ox 97.2 F L 107 H 18 128/73 92 10/08/20 11:23 10/08/20 11:23 10/08/20 11:23 10/08/20 11:23 10/08/20 11:23 Plan Activity: fall precautions Weight Bearing Status: Non-Weight Bearing Diet: other (Pured diet) Special Instructions: record daily weights, record daily BP diary Follow up with: OBIEKWE,ONWURA, MD [Primary Care Provider] - 7 Days
== END 2020-10-08 19:13 | DRG 70 ==
LOC: ED 19:06 → IMCU 21:23 → OBSVTOIN 09-30 09:43 → 4A 09-30 16:19
PROVIDERS: ADMIT Internal Medicine Geriatric Medicine; ATTEND Internal Medicine
PROC: 5A1D70Z Performance of Urinary Filtration, Intermittent, Less than 6 Hours Per Day (ICD-10-PCS; 2020-09-28)
PROC: 5A1D70Z Performance of Urinary Filtration, Intermittent, Less than 6 Hours Per Day (ICD-10-PCS; 2020-09-30)
PROC: 5A1D70Z Performance of Urinary Filtration, Intermittent, Less than 6 Hours Per Day (ICD-10-PCS; 2020-10-02)
PROC: 5A1D70Z Performance of Urinary Filtration, Intermittent, Less than 6 Hours Per Day (ICD-10-PCS; 2020-10-04)
PROC: 5A1D70Z Performance of Urinary Filtration, Intermittent, Less than 6 Hours Per Day (ICD-10-PCS; principal; 2020-10-07)
DX: G93.41 Metabolic encephalopathy (principal); J96.01 Acute respiratory failure with hypoxia; N18.6 End stage renal disease; I21.A1 Myocardial infarction type 2; I48.20 Chronic atrial fibrillation, unspecified; I42.9 Cardiomyopathy, unspecified; I50.22 Chronic systolic (congestive) heart failure; I13.2 Hypertensive heart and chronic kidney disease with heart failure and with stage 5 chronic kidney disease, or end stage renal disease; Z20.822 Contact with and (suspected) exposure to COVID-19; I48.91 Unspecified atrial fibrillation; I35.0 Nonrheumatic aortic (valve) stenosis; E16.2 Hypoglycemia, unspecified; K21.9 Gastro-esophageal reflux disease without esophagitis; D63.8 Anemia in other chronic diseases classified elsewhere; F03.90 Unspecified dementia, unspecified severity, without behavioral disturbance, psychotic disturbance, mood disturbance, and anxiety; E87.70 Fluid overload, unspecified; R40.4 Transient alteration of awareness; D63.1 Anemia in chronic kidney disease; E86.1 Hypovolemia; Z99.2 Dependence on renal dialysis; Z79.899 Other long term (current) drug therapy; Z79.891 Long term (current) use of opiate analgesic; Z79.01 Long term (current) use of anticoagulants
CPT/HCPCS: 36415; 70450; 71045; 80048; 80053; 80076; 82140; 82565; 82962; 84439; 84443; 85025; 85027; 85610; 85730; 87641; 93005; 96374; G0378; A9270-GY; J0885; J1644; J2060; J2270; J7042; P9047; U0003

== ENCOUNTER 2020-10-28 18:17 | Inpatient (IN) | payer MEDICARE ==
--- NOTE | 2020-10-28 20:22 | Emergency Department Report ---
HPI - General Chief Complaint: Medical Clearance Time Seen by Provider: 10/28/20 20:10 - HPI HPI: This is a 70-year-old male presents to the emergency department via EMS from dialysis with complaint of some hypotension, hypoxia, and lethargy after receivi ng dialysis. Patient has a past medical history of end-stage renal disease on hemodialysis on Wednesday/Wednesday/Wednesday, CVA, previous encephalopathy, anemia of chronic kidney disease, hypertension, diabetes, aortic stenosis, dementia, atrial fibrillation/flutter. The patient was seen here about 1 month ago for similar symptoms. Apparently EMS initially found the patient to have a room air pulse ox of about 60% on room air and supplemental oxygen was increased until he was on a nonrebreather which finally got him up into the 90s. At the time my examination the patient is awake, but is otherwise nonverbal. He is therefore a poor historian. ED Past Medical Hx - Past Medical History Hx Hypertension: Yes Hx Congestive Heart Failure: (systolic/diastolic HF) Hx Diabetes: Yes Hx Renal Disease: Yes Hx Dementia: Yes - Surgical History Additional Surgical History: Left upper arm fistula. - Social History Smoking Status: Unknown if ever smoked - Medications Home Medications: Home Medications Medication Instructions Recorded Confirmed Last Taken Type Epoetin Blayne 10,000 Unit [Procrit] 10,000 unit IV NINO PRN #1 vial 12/02/18 02/05/20 11/20/19 10:00 Rx polyethylene glycoL 3350 [Miralax 17 gm PO QDAY PRN #30 powd.pack 11/22/19 02/05/20 Unknown Rx 3350] Famotidine [Pepcid] 10 mg PO BID #60 tablet 09/20/20 Unknown Rx amLODIPine 5 mg PO QDAY #30 tablet 09/20/20 Unknown Rx Apixaban [Eliquis] 5 mg PO Q12HR tablet 10/08/20 Unknown Rx Metoprolol [Lopressor TAB] 25 mg PO BID tablet 10/08/20 Unknown Rx megestroL [Megestrol] 400 mg PO QDAY oral.liqd 10/08/20 Unknown Rx ED Review of Systems ROS: Stated complaint: HYPOTENSIVE/LOW 02 STATS Other details as noted in HPI Comment: Unobtainable due to pts medical conditions Physical Exam - Physical Exam Physical Exam: GENERAL: The patient is ill-appearing. HENT: Normocephalic. Atraumatic. Patient has moist mucous membranes. EYES: Extraocular motions are intact. Pupils equal reactive to light bilaterally. NECK: Supple. Trachea is midline. CHEST/LUNGS: Coarse breath sounds. No tachypnea or accessory muscle use. There is no respiratory distress noted. HEART/CARDIOVASCULAR: Regular. There is no tachycardia. There is no murmur. ABDOMEN: Abdomen is soft, nontender. Patient has normal bowel sounds. SKIN: Skin is warm and dry. NEURO: Awake but altered. Nonverbal. MUSCULOSKELETAL: There is no obvious deformity. ED Course - Consultations Consultation #1: 10/28/20 22:[address] Simmons, nephrology, who does confirm that this is one of his patients. He agrees that the patient does not appear to require emergency dialysis this evening and he will see the patient as a consult in the morning. - ABG Interpretation Ph: 7.565 PCO2: 33 PO2: 203 Bicarbonate: 29 Interpretation: respiratory alkalosis, metabolic alkalosis ED Medical Decision Making - Lab Data Result diagrams: 10/28/20 20:27 10/28/20 20:27 Lab Results 10/28/20 10/28/20 10/28/20 Range/Units 19:43 20:27 20:27 WBC 4.9 (4.5-11.0) K/mm3 RBC 3.67 (3.65-5.03) M/mm3 Hgb 13.1 (11.8-15.2) gm/dl Hct 39.6 (35.5-45.6) % MCV 108 H (84-94) fl MCH 36 H (28-32) pg MCHC 33 (32-34) % RDW 16.8 H (13.2-15.2) % Plt Count 133 L (140-440) K/mm3 Lymph % (Auto) 31.2 (13.4-35.0) % [place] % (Auto) 12.8 H (0.0-7.3) % Eos % (Auto) 6.0 H (0.0-4.3) % Baso % (Auto) 0.5 (0.0-1.8) % Lymph # (Auto) 1.5 (1.2-5.4) K/mm3 [place] # (Auto) 0.6 (0.0-0.8) K/mm3 Eos # (Auto) 0.3 (0.0-0.4) K/mm3 Baso # (Auto) 0.0 (0.0-0.1) K/mm3 Seg Neutrophils % 49.5 (40.0-70.0) % Seg Neutrophils # 2.4 (1.8-7.7) K/mm3 ABG pH (7.320-7.450) POC ABG pCO2 (32.0-48.0) mmHg POC ABG pO2 (83-108) mmHg POC ABG HCO3 ABG O2 Saturation (0-100) POC ABG Base Excess ABG Hemoglobin (12.0-17.5) ABG Oxyhemoglobin (94-98) ABG Methemoglobin (0.0-1.5) ABG Sodium (136.0-145.0) mmol/L ABG Potassium (3.40-4.50) mmol/L ABG Chloride (98-107) mmol/L ABG Glucose (65-95) mg/dL Carboxyhemoglobin (0.5-1.5) FiO2 % Sodium 138 (137-145) mmol/L Potassium 4.3 (3.6-5.0) mmol/L Chloride 94.9 L (98-107) mmol/L Carbon Dioxide 33 H (22-30) mmol/L Anion Gap 14 mmol/L BUN 22 H (9-20) mg/dL Creatinine 5.8 H (0.8-1.3) mg/dL Estimated GFR 12 ml/min BUN/Creatinine Ratio 4 % Glucose 107 H (75-100) mg/dL POC Glucose 125 H (70-105) mg/dL Lactic Acid (0.7-2.0) mmol/L Calcium 9.2 (8.4-10.2) mg/dL Total Bilirubin 0.40 (0.1-1.2) mg/dL AST 13 (5-40) units/L ALT 10 (7-56) units/L Alkaline Phosphatase 45 (35-129) units/L Ammonia (25-60) umol/L Total Protein 7.2 (6.3-8.2) g/dL Albumin 3.3 L (3.9-5) g/dL Albumin/Globulin Ratio 0.8 % TSH (0.270-4.200) mlU/mL Arterial Blood Glucose (65-95) mg/dL Arterial Blood Ionized Calcium (4.6-5.3) mg/dL Plasma/Serum Alcohol (0-0.07) % 10/28/20 10/28/20 10/28/20 Range/Units 20:27 20:27 20:27 WBC (4.5-11.0) K/mm3 RBC (3.65-5.03) M/mm3 Hgb (11.8-15.2) gm/dl Hct (35.5-45.6) % MCV (84-94) fl MCH (28-32) pg MCHC (32-34) % RDW (13.2-15.2) % Plt Count (140-440) K/mm3 Lymph % (Auto) (13.4-35.0) % [place] % (Auto) (0.0-7.3) % Eos % (Auto) (0.0-4.3) % Baso % (Auto) (0.0-1.8) % Lymph # (Auto) (1.2-5.4) K/mm3 [place] # (Auto) (0.0-0.8) K/mm3 Eos # (Auto) (0.0-0.4) K/mm3 Baso # (Auto) (0.0-0.1) K/mm3 Seg Neutrophils % (40.0-70.0) % Seg Neutrophils # (1.8-7.7) K/mm3 ABG pH (7.320-7.450) POC ABG pCO2 (32.0-48.0) mmHg POC ABG pO2 (83-108) mmHg POC ABG HCO3 ABG O2 Saturation (0-100) POC ABG Base Excess ABG Hemoglobin (12.0-17.5) ABG Oxyhemoglobin (94-98) ABG Methemoglobin (0.0-1.5) ABG Sodium (136.0-145.0) mmol/L ABG Potassium (3.40-4.50) mmol/L ABG Chloride (98-107) mmol/L ABG Glucose (65-95) mg/dL Carboxyhemoglobin (0.5-1.5) FiO2 % Sodium (137-145) mmol/L Potassium (3.6-5.0) mmol/L Chloride (98-107) mmol/L Carbon Dioxide (22-30) mmol/L Anion Gap mmol/L BUN (9-20) mg/dL Creatinine (0.8-1.3) mg/dL Estimated GFR ml/min BUN/Creatinine Ratio % Glucose (75-100) mg/dL POC Glucose (70-105) mg/dL Lactic Acid (0.7-2.0) mmol/L Calcium (8.4-10.2) mg/dL Total Bilirubin (0.1-1.2) mg/dL AST (5-40) units/L ALT (7-56) units/L Alkaline Phosphatase (35-129) units/L Ammonia 13.0 L (25-60) umol/L Total Protein (6.3-8.2) g/dL Albumin (3.9-5) g/dL Albumin/Globulin Ratio % TSH 2.420 (0.270-4.200) mlU/mL Arterial Blood Glucose (65-95) mg/dL Arterial Blood Ionized Calcium (4.6-5.3) mg/dL Plasma/Serum Alcohol < 0.01 (0-0.07) % 10/28/20 10/28/20 Range/Units 20:27 20:28 WBC (4.5-11.0) K/mm3 RBC (3.65-5.03) M/mm3 Hgb (11.8-15.2) gm/dl Hct (35.5-45.6) % MCV (84-94) fl MCH (28-32) pg MCHC (32-34) % RDW (13.2-15.2) % Plt Count (140-440) K/mm3 Lymph % (Auto) (13.4-35.0) % [place] % (Auto) (0.0-7.3) % Eos % (Auto) (0.0-4.3) % Baso % (Auto) (0.0-1.8) % Lymph # (Auto) (1.2-5.4) K/mm3 [place] # (Auto) (0.0-0.8) K/mm3 Eos # (Auto) (0.0-0.4) K/mm3 Baso # (Auto) (0.0-0.1) K/mm3 Seg Neutrophils % (40.0-70.0) % Seg Neutrophils # (1.8-7.7) K/mm3 ABG pH 7.565 H (7.320-7.450) POC ABG pCO2 33.1 (32.0-48.0) mmHg POC ABG pO2 203.1 H (83-108) mmHg POC ABG HCO3 29.3 ABG O2 Saturation 99.7 (0-100) POC ABG Base Excess 7.2 ABG Hemoglobin 13.1 (12.0-17.5) ABG Oxyhemoglobin 99.0 H (94-98) ABG Methemoglobin 0.3 (0.0-1.5) ABG Sodium 131.7 L (136.0-145.0) mmol/L ABG Potassium 3.5 (3.40-4.50) mmol/L ABG Chloride 95.0 L (98-107) mmol/L ABG Glucose 114 H (65-95) mg/dL Carboxyhemoglobin 0.4 L (0.5-1.5) FiO2 % 50 Sodium (137-145) mmol/L Potassium (3.6-5.0) mmol/L Chloride (98-107) mmol/L Carbon Dioxide (22-30) mmol/L Anion Gap mmol/L BUN (9-20) mg/dL Creatinine (0.8-1.3) mg/dL Estimated GFR ml/min BUN/Creatinine Ratio % Glucose (75-100) mg/dL POC Glucose (70-105) mg/dL Lactic Acid 3.10 H* (0.7-2.0) mmol/L Calcium (8.4-10.2) mg/dL Total Bilirubin (0.1-1.2) mg/dL AST (5-40) units/L ALT (7-56) units/L Alkaline Phosphatase (35-129) units/L Ammonia (25-60) umol/L Total Protein (6.3-8.2) g/dL Albumin (3.9-5) g/dL Albumin/Globulin Ratio % TSH (0.270-4.200) mlU/mL Arterial Blood Glucose 114 H (65-95) mg/dL Arterial Blood Ionized Calcium 4.4 L (4.6-5.3) mg/dL Plasma/Serum Alcohol (0-0.07) % - EKG Data -: EKG Interpreted by Mi EKG shows normal: sinus rhythm, axis (Left axis deviation), intervals (Prolonged [place] interval), QRS complexes (IVCD, LVH), ST-T waves (Nonspecific ST T waves) Rate: normal - EKG Data When compared to previous EKG there are: changes noted (Previous EKG showed atrial fibrillation) Interpretation: other (Sinus rhythm at 80 bpm, left axis deviation, prolonged [place] interval, IVCD, LVH) - Radiology Data Radiology results: report reviewed CT head/brain wo con INDICATION / CLINICAL INFORMATION: 70 years Male; Altered mental status. TECHNIQUE: Routine CT head without contrast. All CT scans at this location are performed using CT dose reduction for ALARA by means of automated exposure control. COMPARISON: The study is compared to the previous CT of 09/28/2020. FINDINGS: BRAIN / INTRACRANIAL CONTENTS: There is extensive cerebral white matter disease most consistent with advanced microvascular angiopathy. The findings include the ganglia capsular regions along with old the small infarcts involving the thalami, greater on the left. The white matter changes also mildly billy. The findings appear to correlate with the previous CT. There is continued mild cerebral atrophy with associated mild prominence of the ventricular system. There is notable atherosclerotic calcification involving intracranial vessels. There is no clear CT evidence of developing acute intracranial hemorrhage or significant mass effect. ORBITS: No significant abnormality of visualized orbits. SINUSES / MASTOIDS: No significant abnormality in the visualized paranasal sinuses or mastoid air cells. CRANIOCERVICAL JUNCTION: No significant abnormality. ADDITIONAL FINDINGS: None. IMPRESSION: 1. There is continued extensive microvascular angiopathy as detailed above without CT evidence of acute intracranial hemorrhage. CHEST 1 VIEW 10/28/2020 8:30 PM INDICATION / CLINICAL INFORMATION: Altered mental status. COMPARISON: 09/28/2020 FINDINGS: SUPPORT DEVICES: None. HEART / MEDIASTINUM: Stable cardiomegaly. LUNGS / PLEURA: Bilateral mild interstitial edema. Moderate left pleural effusion and small right. No pneumothorax. A DDITIONAL FINDINGS: No significant additional findings. IMPRESSION: 1. Cardiomegaly with mild interstitial edema. 2. Moderate left pleural effusion and small right pleural effusion. - Medical Decision Making This patient presented from dialysis after he had some transient hypotension, some hypoxia, and the report of altered mental status or lethargy. The patient is awake, but otherwise is nonverbal and does appear altered. We were able to titrate the patient down from a nonrebreather to a Venturi mask. Patient did have some hypoxia if not on supplemental oxygen, but ABG on the Venturi mask just shows respiratory and metabolic alkalosis. Chest x-ray shows some mild interstitial edema and pleural effusions. Patient's labs have been mostly unremarkable except for renal insufficiency consistent with his end-stage renal disease and the first lactic acid level was elevated but has trended downwards. Nephrology was contacted and consulted. The patient will be admitted to the hospital for further evaluation and treatment was accepted for admission by the hospitalist, Dr. Melendez. Critical Care Time: No Critical care attestation.: If time is entered above; I have spent that time in minutes in the direct care of this critically ill patient, excluding procedure time. ED Disposition Clinical Impression: Hypoxia, Transient hypotension, ESRD (end stage renal disease) on dialysis, Acute encephalopathy Volume overload Qualifiers: Hypervolemia type: unspecified Qualified Code(s): E87.70 - Fluid overload, unspecified Disposition: OP ADMIT IP TO THIS HOSP Is pt being admited?: Yes Condition: Serious Time of Disposition: 22:18
[2020-10-28 20:54] LABS: Basophils % (Auto) 0.5 % (0.0-1.8); Eosinophils # (Auto) 0.3 K/mm3 (0.0-0.4); Hematocrit 39.6 % (35.5-45.6); Hemoglobin 13.1 gm/dl (11.8-15.2); Lymphocytes # (Auto) 1.5 K/mm3 (1.2-5.4); Lymphocytes % (Auto) 31.2 % (13.4-35.0); Mean Corpuscular HGB Conc 33 % (32-34); Mean Corpuscular Volume 108 fl (84-94); Monocytes # (Auto) 0.6 K/mm3 (0.0-0.8); Monocytes % (Auto) 12.8 % (0.0-7.3); Platelet Count 133 K/mm3 (140-440); Red Blood Count 3.67 M/mm3 (3.65-5.03); Red Cell Distribution Width 16.8 % (13.2-15.2)
[2020-10-28 21:07] LABS: Albumin 3.3 g/dL (3.9-5); Calcium 9.2 mg/dL (8.4-10.2)
--- NOTE | 2020-10-28 21:32 | Cat Scan Report ---
CT head/brain wo con INDICATION / CLINICAL INFORMATION: 70 years Male; Altered mental status. TECHNIQUE: Routine CT head without contrast. All CT scans at this location are performed using CT dos e reduction for ALARA by means of automated exposure control. COMPARISON: The study is compared to the previous CT of 09/28/2020. FINDINGS: BRAIN / INTRACRANIAL CONTENTS: There is extensive cerebral white matter disease most consistent with advanced microvascular angiopathy. The findings include the ganglia capsular regions along with old t he small infarcts involving the thalami, greater on the left. The white matter changes also mildly po ns. The findings appear to correlate with the previous CT. There is continued mild cerebral atrophy with associated mild prominence of the ventricular system. T here is notable atherosclerotic calcification involving intracranial vessels. There is no clear CT ev idence of developing acute intracranial hemorrhage or significant mass effect. ORBITS: No significant abnormality of visualized orbits. SINUSES / MASTOIDS: No significant abnormality in the visualized paranasal sinuses or mastoid air mike ls. CRANIOCERVICAL JUNCTION: No significant abnormality. ADDITIONAL FINDINGS: None. IMPRESSION: 1. There is continued extensive microvascular angiopathy as detailed above without CT evidence of acu te intracranial hemorrhage. Signer Name: Nish Mason MD Signed: 10/28/2020 9:28 PM Workstation Name: [id number]
--- NOTE | 2020-10-28 21:48 | XRay Report ---
CHEST 1 VIEW 10/28/2020 8:30 PM INDICATION / CLINICAL INFORMATION: Altered mental status. COMPARISON: 09/28/2020 FINDINGS: SUPPORT DEVICES: None. HEART / MEDIASTINUM: Stable cardiomegaly. LUNGS / PLEURA: Bilateral mild interstitial edema. Moderate left pleural effusion and small right. No pneumothorax. ADDITIONAL FINDINGS: No significant additional findings. IMPRESSION: 1. Cardiomegaly with mild interstitial edema. 2. Moderate left pleural effusion and small right pleural effusion. Signer Name: Troy Cerrato MD Signed: 10/28/2020 9:44 PM Workstation Name: [id number]
[2020-10-28] MEDS ORDERED: ACETAMINOPHEN 325 MG TAB PO PRN (22:36)
[2020-10-28] MEDS ORDERED: ONDANSETRON 4 MG/2 ML INJ IV PRN (22:36)
[2020-10-28] MEDS ORDERED: ALBUTEROL 2.5 MG/3 ML NEBU IH PRN (22:36)
[2020-10-28] MEDS ORDERED: oxyCODONE /ACETAMINOPHEN 5-325MG TAB PO PRN (22:36)
[2020-10-28] MEDS ORDERED: EPOETIN ALFA IV PRN (22:40)
[2020-10-28] MEDS ORDERED: POLYETHYLENE GLYCOL 3350 17 GM POWDER PO PRN (22:40)
--- NOTE | 2020-10-28 22:45 | History and Physical Report ---
History of Present Illness Date of examination: 10/28/20 Date of admission: 10/28/20 Chief complaint: Lethargy Hypoxia History of present illness: 70-year-old male with past medical history of hypertension, CHF end-stage renal disease on dialysis diabetes, A. fib, aortic stenosis, CVA and dementia was brought to the emergency room because of some hypotension, hypoxia, and lethargy after receiving dialysis. The patient was seen here about 1 month ago for similar symptoms. Apparently EMS initially found the patient to have a room air pulse ox of about 60% on room air and supplemental oxygen was increased until he was on a nonrebreather which finally got him up into the 90s. Initial CT scan of the head shows extensive microvascular angiopathy without CT evidence of acute intracranial hemorrhage. In the emergency room patient is now more awake alert but nonverbal. Patient is a poor historian Past History Past Medical History: diabetes, ESRD, heart failure, hypertension, other (Dementia) Medications and Allergies Allergies Allergy/AdvReac Type Severity Reaction Status Date / Time No Known Allergies Allergy Verified 09/28/20 20:06 Home Medications Medication Instructions Recorded Confirmed Last Taken Type Epoetin Blayne 10,000 Unit [Procrit] 10,000 unit IV NINO PRN #1 vial 12/02/18 02/05/20 11/20/19 10:00 Rx polyethylene glycoL 3350 [Miralax 17 gm PO QDAY PRN #30 powd.pack 11/22/19 02/05/20 Unknown Rx 3350] Famotidine [Pepcid] 10 mg PO BID #60 tablet 09/20/20 Unknown Rx amLODIPine 5 mg PO QDAY #30 tablet 09/20/20 Unknown Rx Apixaban [Eliquis] 5 mg PO Q12HR tablet 10/08/20 Unknown Rx Metoprolol [Lopressor TAB] 25 mg PO BID tablet 10/08/20 Unknown Rx megestroL [Megestrol] 400 mg PO QDAY oral.liqd 10/08/20 Unknown Rx Active Meds: Active Medications Acetaminophen (Acetaminophen 325 Mg Tab) 650 mg PO Q4H PRN PRN Reason: Pain MILD(1-3)/Fever >100.5/RUIZ Albuterol (Albuterol 2.5 Mg/3 Ml Nebu) 2.5 mg IH Q4HRT PRN PRN Reason: Shortness Of Breath Albuterol/Ipratropium (Ipratropium/Albuterol Sulfate 3 Ml Ampul.Neb) 1 ampul IH Q6HRT BECKIE Dextrose (Dextrose 50% In Water (25gm) 50 Ml Syringe) 50 ml IV Q30MIN PRN; Protocol PRN Reason: Hypoglycemia Famotidine (Famotidine 20 Mg/2 Ml Inj) 20 mg IV BID BECKIE Heparin Sodium (Porcine) (Heparin 5,000 Unit/1 Ml Vial) 5,000 unit SUB-Q Q8HR BECKIE Insulin Human Lispro (Insulin Lispro 100 Unit/Ml) 0 unit SUB-Q ACHS BECKIE; Protocol Ondansetron HCl (Ondansetron 4 Mg/2 Ml Inj) 4 mg IV Q8H PRN PRN Reason: Nausea And Vomiting Oxycodone/Acetaminophen (Oxycodone /Acetaminophen 5-325mg Tab) 1 tab PO Q6H PRN PRN Reason: Pain, Moderate (4-6) Sodium Chloride (Sodium Chloride 0.9% 10 Ml Flush Syringe) 10 ml IV BID BECKIE Sodium Chloride (Sodium Chloride 0.9% 10 Ml Flush Syringe) 10 ml IV PRN PRN PRN Reason: LINE FLUSH Review of Systems Constitutional: lethargy Cardiovascular: other Respiratory: shortness of breath Neurological: change in mentation, confusion Exam - Constitutional Vitals: Temp Pulse Resp BP Pulse Ox 84 21 128/87 100 10/28/20 22:31 10/28/20 22:31 10/28/20 22:31 10/28/20 22:31 General appearance: Present: mild distress, well-nourished - EENT Eyes: Present: PERRL ENT: hearing intact, clear oral mucosa - Neck Neck: Present: supple, normal ROM - Respiratory Respiratory effort: normal Respiratory: bilateral: CTA - Cardiovascular Heart Sounds: Present: S1 & S2. Absent: rub, click - Extremities Extremities: pulses symmetrical, No edema Extremity abnormal: other (Chronic skin changes. Dark discoloration) Peripheral Pulses: within normal limits - Abdominal General gastrointestinal: Present: soft, non-tender, non-distended, normal bowel sounds Male genitourinary: Present: normal - Integumentary Integumentary: Present: clear, warm, dry - Musculoskeletal Musculoskeletal: gait normal, strength equal bilaterally - Psychiatric Psychiatric: other (Patient is lethargic) - Neurologic Neurologic: CNII-XII intact, moves all extremities, other (Patient is lethargic) Results - Labs CBC & Chem 7: 10/28/20 20:27 10/28/20 20:27 Labs: Laboratory Last Values WBC 4.9 K/mm3 (4.5-11.0) 10/28/20 20: RBC 3.67 M/mm3 (3.65-5.03) 10/28/20 20:27 Hgb 13.1 gm/dl (11.8-15.2) 10/28/20 20:27 Hct 39.6 % (35.5-45.6) 10/28/20 20: MCV 108 fl (84-94) H 10/28/20 20: MCH 36 pg (28-32) H 10/28/20 20: MCHC 33 % (32-34) 10/28/20 20: RDW 16.8 % (13.2-15.2) H 10/28/20 20: Plt Count 133 K/mm3 (140-440) L 10/28/20 20:27 Lymph % (Auto) 31.2 % (13.4-35.0) 10/28/20 20:27 [place] % (Auto) 12.8 % (0.0-7.3) H 10/28/20 20: Eos % (Auto) 6.0 % (0.0-4.3) H 10/28/20 20:27 Baso % (Auto) 0.5 % (0.0-1.8) 10/28/20 20:27 Lymph # (Auto) 1.5 K/mm3 (1.2-5.4) 10/28/20 20:27 [place] # (Auto) 0.6 K/mm3 (0.0-0.8) 10/28/20 20:27 Eos # (Auto) 0.3 K/mm3 (0.0-0.4) 10/28/20 20: Baso # (Auto) 0.0 K/mm3 (0.0-0.1) 10/28/20 20:27 Seg Neutrophils % 49.5 % (40.0-70.0) 10/28/20 20:27 Seg Neutrophils # 2.4 K/mm3 (1.8-7.7) 10/28/20 20: ABG pH 7.565 (7.320-7.450) H 10/28/20 20: POC ABG pCO2 33.1 mmHg (32.0-48.0) 10/28/20 20: POC ABG pO2 203.1 mmHg (83-108) H 10/28/20 20:28 POC ABG HCO3 29.3 10/28/20 20:28 ABG O2 Saturation 99.7 (0-100) 10/28/20 20: POC ABG Base Excess 7.2 10/28/20 20: ABG Hemoglobin 13.1 (12.0-17.5) 10/28/20 20: ABG Oxyhemoglobin 99.0 (94-98) H 10/28/20 20: ABG Methemoglobin 0.3 (0.0-1.5) 10/28/20 20:28 ABG Sodium 131.7 mmol/L (136.0-145.0) L 10/28/20 20:28 ABG Potassium 3.5 mmol/L (3.40-4.50) 10/28/20 20: ABG Chloride 95.0 mmol/L (98-107) L 10/28/20 20: ABG Glucose 114 mg/dL (65-95) H 10/28/20 20: Carboxyhemoglobin 0.4 (0.5-1.5) L 10/28/20 20:28 FiO2 % 50 10/28/20 20: Sodium 138 mmol/L (137-145) 10/28/20 20: Potassium 4.3 mmol/L (3.6-5.0) 10/28/20 20: Chloride 94.9 mmol/L (98-107) L 10/28/20 20: Carbon Dioxide 33 mmol/L (22-30) H 10/28/20 20:27 Anion Gap 14 mmol/L 10/28/20 20: BUN 22 mg/dL (9-20) H 10/28/20 20:27 Creatinine 5.8 mg/dL (0.8-1.3) H 10/28/20 20: Estimated GFR 12 ml/min 10/28/20 20: BUN/Creatinine Ratio 4 % 10/28/20 20:27 Glucose 107 mg/dL (75-100) H 10/28/20 20:27 POC Glucose 125 mg/dL (70-105) H 10/28/20 19:43 Lactic Acid 3.10 mmol/L (0.7-2.0) H* 10/28/20 20:27 Calcium 9.2 mg/dL (8.4-10.2) 10/28/20 20:27 Total Bilirubin 0.40 mg/dL (0.1-1.2) 10/28/20 20:27 AST 13 units/L (5-40) 10/28/20 20:27 ALT 10 units/L (7-56) 10/28/20 20:27 Alkaline Phosphatase 45 units/L (35-129) 10/28/20 20:27 Ammonia 13.0 umol/L (25-60) L 10/28/20 20:27 Total Protein 7.2 g/dL (6.3-8.2) 10/28/20 20:27 Albumin 3.3 g/dL (3.9-5) L 10/28/20 20:27 Albumin/Globulin Ratio 0.8 % 10/28/20 20:27 TSH 2.420 mlU/mL (0.270-4.200) 10/28/20 20:27 Arterial Blood Glucose 114 mg/dL (65-95) H 10/28/20 20:28 Arterial Blood Ionized Calcium 4.4 mg/dL (4.6-5.3) L 10/28/20 20:28 Plasma/Serum Alcohol < 0.01 % (0-0.07) 10/28/20 20:27 - Imaging and Cardiology Chest x-ray: report reviewed CT Scan - head: report reviewed Assessment and Plan VTE prophylaxis?: Chemical Plan of care discussed with patient/family: Yes - Patient Problems (1) Acute metabolic encephalopathy Current Visit: No Status: Acute Plan to address problem: Admit the patient to the IMCU overnight. Metabolic encephalopathy most likely secondary to chronic kidney disease and hypoxia. Put the patient oxygen by nonrebreather keep O2 sat greater than 91%. DuoNeb by nebulizer every 4 hours. Albuterol via nebulizer every 4 hours as needed. Will consult nephrology for dialysis in the morning. We will monitor the patient closely (2) Hypoxia Current Visit: Yes Status: Acute Plan to address problem: oxygen by nonrebreather keep O2 sat greater than 91%. DuoNeb by nebulizer every 4 hours. Albuterol via nebulizer every 4 hours as needed. Will consult nephrology for dialysis in the morning. We will monitor the patient closely (3) ESRD on dialysis Current Visit: Yes Status: Chronic Plan to address problem: Avoid nephrotoxic drug. Renally dose medication. Reconsult nephrology for dialysis in the morning. Monitor the patient closely (4) Acute diastolic (congestive) heart failure Current Visit: No Status: Acute Plan to address problem: Stable. We will continue the home medication. Outpatient follow-up with cardiology (5) CVA (cerebral vascular accident) Current Visit: No Status: Acute Plan to address problem: Stable. We will continue Eliquis 5 mg p.o. twice a day. Outpatient follow-up with neurology (6) Transient hypotension Current Visit: Yes Status: Acute Plan to address problem: Resolved. Blood pressure is now 128/87. We will monitor the blood pressure closely. We continue the home medication (7) DM2 (diabetes mellitus, type 2) Current Visit: No Status: Chronic Plan to address problem: We will put the patient on 1800 kcal ADA diet. Humalog sliding scale Accu-Chek before meals and at bedtime with moderate dose coverage. Diabetic education (8) Lactic acidosis Current Visit: Yes Status: Acute Plan to address problem: Most likely secondary to chronic kidney disease. We will consult nephrology for hemodialysis. Rocephin 1 g IV daily for prophylaxis. Recheck CBC/lactic acid in the morning (9) DVT prophylaxis Current Visit: No Status: Acute Plan to address problem: Eliquis 5 mg p.o. twice daily for DVT prophylaxis. Pepcid 20 mg IV twice daily for GI prophylaxis. Patient is a full code
[2020-10-29] MEDS: cefTRIAXone/NS 1 GM/50 ML 1 GM/50 ML BAG IV SCH ×2 (00:47→23:54)
[2020-10-29] MEDS: IPRATROPIUM/ALBUTEROL SULFATE 3 ML AMPUL.NEB IH SCH ×4 (02:20→20:43)
[2020-10-29 05:21] LABS: Basophils % (Auto) 0.9 % (0.0-1.8); Eosinophils # (Auto) 0.3 K/mm3 (0.0-0.4); Eosinophils % (Auto) 5.9 % (0.0-4.3); Hematocrit 36.4 % (35.5-45.6); Hemoglobin 12.1 gm/dl (11.8-15.2); Lymphocytes # (Auto) 1.9 K/mm3 (1.2-5.4); Mean Corpuscular HGB Conc 33 % (32-34); Mean Corpuscular Volume 106 fl (84-94); Monocytes # (Auto) 0.7 K/mm3 (0.0-0.8); Monocytes % (Auto) 14.1 % (0.0-7.3); Platelet Count 140 K/mm3 (140-440); Red Blood Count 3.43 M/mm3 (3.65-5.03); Red Cell Distribution Width 16.8 % (13.2-15.2)
[2020-10-29 05:32] LABS: Calcium 9.6 mg/dL (8.4-10.2)
[2020-10-29] MEDS ORDERED: HEPARIN 5,000 UNIT/1 ML VIAL SUB-Q SCH (06:00)
[2020-10-29] MEDS ORDERED: SODIUM CHLORIDE 0.9% 100 ML IV PRN (08:00)
[2020-10-29] MEDS ORDERED: FAMOTIDINE 20 MG/2 ML INJ IV SCH (10:00)
[2020-10-29] MEDS ORDERED: NON-FORMULARY EACH (Apixaban 5 MG Tablet) PO SCH (10:00)
--- NOTE | 2020-10-29 10:12 | Electrocardiograph Report ---
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 : 1950 Requested By: DRE MEJIA Order Number: [id number] Reading MD: Saul Watts Measurements Intervals [place] Rate: 80 P: 38 NC: 216 QRS: -40 QRSD: 116 T: 198 QT: 397 QTc: 459 Interpretive Statements Sinus rhythm Borderline prolonged NC interval Nonspecific IVCD with LAD LVH with secondary repolarization abnormality ST elevation secondary to LVH Compared to ECG 09/28/2020 19:50:16 Left ventricular hypertrophy now present Early repolarization now present Atrial fibrillation no longer present ST (T wave) deviation still present Electronically Signed On 10-29-2020 10:12:21 EDT by Saul Watts
[2020-10-29 10:20] LABS: Hepatitis C Virus Antibody Non-Reactive (NonReactive)
[2020-10-29] MEDS: INSULIN LISPRO 100 UNIT/ML SUB-Q SCH ×4 (10:22→23:38)
[2020-10-29] MEDS: MEGESTROL 400 MG/10 ML ORAL LIQD PO SCH (10:25)
[2020-10-29] MEDS: APIXABAN 5 MG TAB PO SCH ×2 (10:25→23:30)
[2020-10-29] MEDS: amLODIPine 5 MG TAB PO SCH (10:25)
[2020-10-29] MEDS: METOPROLOL TARTRATE 25 MG TAB PO SCH ×2 (10:26→23:29)
[2020-10-29] MEDS: FAMOTIDINE 20 MG/2 ML INJ IV SCH (10:26)
[2020-10-29] MEDS: DEXTROSE 50% IN WATER (25GM) 50 ML SYRINGE IV PRN (10:31)
--- NOTE | 2020-10-29 11:14 | Consultation ---
History of Present Illness - Reason for Consult Consult date: 10/29/20 end stage renal disease Requesting physician: SHA LUEVANO - History of Present Illness This is a 70yo AAM with h/o ESRD in setting of HTN, well known to our outpatient HD clinic at [facility], h/o CVA, dementia. who presents to ER after episode of hypotension, hypoxia and lethargy after his routine HD treatment on Wednesday. As per EMS ptatient's room air pulse ox was about 60%, pt was placed on a NRB mask, with which O2 sat improved to > 90%. in ER CT head was obtained, which showed extensive microvascular angiopathy without CT evidence of acute intracranial hemorrhage. In the emergency room patient is now more awake alert but nonverbal. CXR showed cardiomegaly with evidence of pulmonary edema, moderate L and small R pleural effusion. Renal consult is requested for management of ESRD/ volume management Past History Past Medical History: diabetes, ESRD, heart failure, hypertension, other (Dementia) Medications and Allergies Allergies Allergy/AdvReac Type Severity Reaction Status Date / Time No Known Allergies Allergy Verified 09/28/20 20:06 Home Medications Medication Instructions Recorded Confirmed Last Taken Type RX: Epoetin Blayne 10,000 Unit 10,000 unit IV NINO PRN #1 vial 12/02/18 02/05/20 11/20/19 10:00 Rx [Procrit] RX: polyethylene glycoL 3350 17 gm PO QDAY PRN #30 powd.pack 11/22/19 02/05/20 Unknown Rx [Miralax 3350] RX: Famotidine [Pepcid] 10 mg PO BID #60 tablet 09/20/20 Unknown Rx RX: amLODIPine 5 mg PO QDAY #30 tablet 09/20/20 Unknown Rx RX: Apixaban [Eliquis] 5 mg PO Q12HR tablet 10/08/20 Unknown Rx RX: Metoprolol [Lopressor TAB] 25 mg PO BID tablet 10/08/20 Unknown Rx RX: megestroL [Megestrol] 400 mg PO QDAY oral.liqd 10/08/20 Unknown Rx Active Meds: Active Medications Acetaminophen (Acetaminophen 325 Mg Tab) 650 mg PO Q4H PRN PRN Reason: Pain MILD(1-3)/Fever >100.5/RUIZ Albuterol (Albuterol 2.5 Mg/3 Ml Nebu) 2.5 mg IH Q4HRT PRN PRN Reason: Shortness Of Breath Albuterol/Ipratropium (Ipratropium/Albuterol Sulfate 3 Ml Ampul.Neb) 1 ampul IH Q6HRT [facility] Last Admin: 10/29/20 10:22 Dose: 1 ampul Documented by: Amlodipine Besylate (Amlodipine 5 Mg Tab) 5 mg PO QDAY [facility] Last Admin: 10/29/20 10:25 Dose: Not Given Documented by: Apixaban (Apixaban 5 Mg Tab) 5 mg PO Q12HR [facility] Last Admin: 10/29/20 10:25 Dose: Not Given Documented by: Dextrose (Dextrose 50% In Water (25gm) 50 Ml Syringe) 50 ml IV Q30MIN PRN; Protocol PRN Reason: Hypoglycemia Last Admin: 10/29/20 10:31 Dose: 50 ml Documented by: Famotidine (Famotidine 20 Mg/2 Ml Inj) 20 mg IV DAILY [facility] Last Admin: 10/29/20 10:26 Dose: Not Given Documented by: Ceftriaxone Sodium (Rocephin/Ns 1 Gm/50 Ml) 1 gm in 50 mls @ 100 mls/hr IV Q24H [facility]; Protocol Last Admin: 10/29/20 00:47 Dose: 100 mls/hr Documented by: Sodium Chloride (Nacl 0.9%) 100 mls @ 999 mls/hr IV NINO PRN PRN Reason: Hypotension Dextrose/Sodium Chloride (D5ns) 1,000 mls @ 75 mls/hr IV DIRECT [facility] Insulin Human Lispro (Insulin Lispro 100 Unit/Ml) 0 unit SUB-Q ACHS [facility]; Protocol Last Admin: 10/29/20 10:22 Dose: Not Given Documented by: Megestrol Acetate (Megestrol 400 Mg/10 Ml Oral Liqd) 400 mg PO QDAY [facility] Last Admin: 10/29/20 10:25 Dose: Not Given Documented by: Metoprolol Tartrate (Metoprolol Tartrate 25 Mg Tab) 25 mg PO BID [facility] Last Admin: 10/29/20 10:26 Dose: Not Given Documented by: Ondansetron HCl (Ondansetron 4 Mg/2 Ml Inj) 4 mg IV Q8H PRN PRN Reason: Nausea And Vomiting Polyethylene Glycol (Polyethylene Glycol 3350 17 Gm Powder) 17 gm PO QDAY PRN PRN Reason: Constipation Sodium Chloride (Sodium Chloride 0.9% 10 Ml Flush Syringe) 10 ml IV BID BECKIE Last Admin: 10/29/20 10:27 Dose: 10 ml Documented by: Sodium Chloride (Sodium Chloride 0.9% 10 Ml Flush Syringe) 10 ml IV PRN PRN PRN Reason: LINE FLUSH Review of Systems ROS unobtainable: due to mental status Exam - Vital Signs Vital signs: Vital Signs Pulse Ox 100 10/28/20 19:15 - General Appearance General appearance: well-developed, well-nourished, appears stated age EENT: ATNC, PERRL, mucous membranes moist Neck: Present: neck supple Respiratory: Decreased Breath Sounds Heart: regular, S1S2 Gastrointestinal: Present: normoactive bowel sounds Integumentary: no rash Neurologic: no focal deficit, confused, disoriented Results - Lab Results 10/29/20 04:36 10/29/20 04:36 Most recent lab results ABG pH 7.565 (7.320-7.450) H 10/28/20 20:28 ABG O2 Saturation 99.7 (0-100) 10/28/20 20:28 Calcium 9.6 mg/dL (8.4-10.2) 10/29/20 04:36 Assessment and Plan - Patient Problems (1) Acute encephalopathy Current Visit: Yes Status: Acute Plan to address problem: possibly secondary to prolonged hypoxemia, pulmonary edema. CT head showed no acute findings. Doubt uremic encephalopathy, since pt has been compliant with HD treatments, BUn in the 20s (2) ESRD on dialysis Current Visit: Yes Status: Chronic Plan to address problem: additional isolated UF arranged today for further volume control. Cont HD on MWF schedule (3) Hypertensive chronic kidney disease with stage 5 chronic kidney disease or end stage renal disease Current Visit: Yes Status: Acute Plan to address problem: monitor BP on current meds (4) Anemia in chronic kidney disease Current Visit: No Status: Chronic Plan to address problem: Hb at target, no further EPO require at this time
[2020-10-29 13:18] LABS: Hepatitis B Surface Antigen Nonreactive (Negative)
--- NOTE | 2020-10-29 15:59 | Progress Note ---
Assessment and Plan -- Acute metabolic encephalopathy most likely secondary to dementia, chronic kidney disease and hypoxia. CT head w/o any acute infract supportive care, monitor clinically --Acute Hypoxic Respiratory failure on ventimask. likely due to volume overload from ESRD ordered for COVID DuoNeb by nebulizer every 4 hours. Albuterol via nebulizer every 4 hours as needed. consulted nephrology for dialysis We will monitor the patient closely -- ESRD on dialysis Avoid nephrotoxic drug. Renally dose medication. consulted nephrology for dialysis -- Acute diastolic (congestive) heart failure Stable. We will continue the home medication. Outpatient follow-up with cardiology -- Vascular dementia supportive care. Outpatient follow-up with neurology -- Transient hypotension Resolved. Blood pressure is now 128/87. We will monitor the blood pressure closely. We continue the home medication -- DM2 (diabetes mellitus, type 2) We will put the patient on 1800 kcal ADA pureed diet. Humalog sliding scale Accu-Chek before meals and at bedtime with moderate dose coverage. Diabetic education --CVA, old cont eliquis, statin, follow up outpt with neurology -- DVT prophylaxis: Eliquis 5 mg p.o. twice daily for DVT prophylaxis. Pepcid 20 mg IV twice daily for GI prophylaxis. Patient is a full code Daily clinical course: 10/29: We will rule out for COVID-19, test ordered, pt on ventimask, nephro consulted for HD, follow clinically Subjective Date of service: 10/29/20 Interval history: Patient seen and examined pt on ventimask very confused but alert HD pending, covid test pending Objective - Constitutional Vitals: Vital Signs - 12hr 10/29/20 10/29/20 10/29/20 04:01 04:31 05:01 Pulse Rate 84 88 90 Respiratory 18 18 18 Rate Blood Pressure 128/87 128/87 128/87 O2 Sat by Pulse 95 Oximetry 10/29/20 10/29/20 10/29/20 05:31 06:01 06:31 Pulse Rate 80 81 85 Respiratory 17 17 17 Rate Blood Pressure 128/87 128/87 128/87 O2 Sat by Pulse 97 100 98 Oximetry 10/29/20 10/29/20 10/29/20 07:01 08:01 09:01 Pulse Rate 74 83 88 Respiratory 18 17 18 Rate Blood Pressure 128/87 O2 Sat by Pulse 100 99 Oximetry 10/29/20 10/29/20 10/29/20 09:18 10:00 10:26 Pulse Rate 80 77 Respiratory 24 16 Rate Blood Pressure 122/73 122/73 O2 Sat by Pulse 99 100 Oximetry General appearance: Present: mild distress, other (elderly AAM) - EENT Eyes: PERRL, EOM intact ENT: other (dry mucosa) Ears: bilateral: normal - Neck Neck: supple, normal ROM - Respiratory Respiratory effort: labored, other (on ventimask) Respiratory: bilateral: diminished, rhonchi - Cardiovascular Rhythm: regular Heart Sounds: Present: S1 & S2. Absent: gallop, rub Extremities: pulses intact, No edema, normal color - Gastrointestinal General gastrointestinal: Present: soft, non-tender, non-distended, normal bowel sounds - Integumentary Integumentary: clear, warm, dry - Musculoskeletal Musculoskeletal: generalized weakness - Neurologic Neurologic: moves all extremities - Labs CBC & Chem 7: 10/31/20 05:23 10/31/20 05:23 Labs: Abnormal lab results 10/28/20 10/28/20 10/28/20 Range/Units 19:43 20:27 20:27 RBC (3.65-5.03) M/mm3 MCV 108 H (84-94) fl MCH 36 H (28-32) pg RDW 16.8 H (13.2-15.2) % Plt Count 133 L (140-440) K/mm3 Lymph % (Auto) (13.4-35.0) % Floyd % (Auto) 12.8 H (0.0-7.3) % Eos % (Auto) 6.0 H (0.0-4.3) % ABG pH (7.320-7.450) POC ABG pO2 (83-108) mmHg ABG Oxyhemoglobin (94-98) ABG Sodium (136.0-145.0) mmol/L ABG Chloride (98-107) mmol/L ABG Glucose (65-95) mg/dL Carboxyhemoglobin (0.5-1.5) Chloride 94.9 L (98-107) mmol/L Carbon Dioxide 33 H (22-30) mmol/L BUN 22 H (9-20) mg/dL Creatinine 5.8 H (0.8-1.3) mg/dL Glucose 107 H (75-100) mg/dL POC Glucose 125 H (70-105) mg/dL Lactic Acid (0.7-2.0) mmol/L Ammonia (25-60) umol/L Albumin 3.3 L (3.9-5) g/dL Arterial Blood Glucose (65-95) mg/dL Arterial Blood Ionized Calcium (4.6-5.3) mg/dL 10/28/20 10/28/20 10/28/20 Range/Units 20:27 20:27 20:28 RBC (3.65-5.03) M/mm3 MCV (84-94) fl MCH (28-32) pg RDW (13.2-15.2) % Plt Count (140-440) K/mm3 Lymph % (Auto) (13.4-35.0) % Floyd % (Auto) (0.0-7.3) % Eos % (Auto) (0.0-4.3) % ABG pH 7.565 H (7.320-7.450) POC ABG pO2 203.1 H (83-108) mmHg ABG Oxyhemoglobin 99.0 H (94-98) ABG Sodium 131.7 L (136.0-145.0) mmol/L ABG Chloride 95.0 L (98-107) mmol/L ABG Glucose 114 H (65-95) mg/dL Carboxyhemoglobin 0.4 L (0.5-1.5) Chloride (98-107) mmol/L Carbon Dioxide (22-30) mmol/L BUN (9-20) mg/dL Creatinine (0.8-1.3) mg/dL Glucose (75-100) mg/dL POC Glucose (70-105) mg/dL Lactic Acid 3.10 H* (0.7-2.0) mmol/L Ammonia 13.0 L (25-60) umol/L Albumin (3.9-5) g/dL Arterial Blood Glucose 114 H (65-95) mg/dL Arterial Blood Ionized Calcium 4.4 L (4.6-5.3) mg/dL 10/29/20 10/29/20 10/29/20 Range/Units 04:36 04:36 09:45 RBC 3.43 L (3.65-5.03) M/mm3 MCV 106 H (84-94) fl MCH 35 H (28-32) pg RDW 16.8 H (13.2-15.2) % Plt Count (140-440) K/mm3 Lymph % (Auto) 37.0 H (13.4-35.0) % Floyd % (Auto) 14.1 H (0.0-7.3) % Eos % (Auto) 5.9 H (0.0-4.3) % ABG pH (7.320-7.450) POC ABG pO2 (83-108) mmHg ABG Oxyhemoglobin (94-98) ABG Sodium (136.0-145.0) mmol/L ABG Chloride (98-107) mmol/L ABG Glucose (65-95) mg/dL Carboxyhemoglobin (0.5-1.5) Chloride 94.4 L (98-107) mmol/L Carbon Dioxide 35 H (22-30) mmol/L BUN 24 H (9-20) mg/dL Creatinine 6.0 H (0.8-1.3) mg/dL Glucose (75-100) mg/dL POC Glucose 64 L (70-105) mg/dL Lactic Acid (0.7-2.0) mmol/L Ammonia (25-60) umol/L Albumin (3.9-5) g/dL Arterial Blood Glucose (65-95) mg/dL Arterial Blood Ionized Calcium (4.6-5.3) mg/dL
[2020-10-29] MEDS: D5W/0.9% NACL 1,000 ML IV SCH (23:53)
[2020-10-30] MEDS: IPRATROPIUM/ALBUTEROL SULFATE 3 ML AMPUL.NEB IH SCH ×4 (02:46→21:08)
[2020-10-30 05:20] LABS: Calcium 10.5 mg/dL (8.4-10.2)
[2020-10-30] MEDS: INSULIN LISPRO 100 UNIT/ML SUB-Q SCH ×3 (08:49→21:55)
--- NOTE | 2020-10-30 10:28 | Progress Note ---
Assessment and Plan - Patient Problems (1) ESRD on dialysis Current Visit: Yes Status: Chronic Plan to address problem: Cont HD on MWF schedule (2) Acute encephalopathy Current Visit: Yes Status: Acute Plan to address problem: possibly secondary to prolonged hypoxemia, pulmonary edema. CT head showed no acute findings. Doubt uremic encephalopathy, since pt has been compliant with HD treatments, BUN in the 20s (3) Hypertensive chronic kidney disease with stage 5 chronic kidney disease or end stage renal disease Current Visit: Yes Status: Acute Plan to address problem: monitor BP on current meds (4) Anemia in chronic kidney disease Current Visit: No Status: Chronic Plan to address problem: Hb at target, no further EPO require at this time Subjective Date of service: 10/30/20 Principal diagnosis: ESRD Interval history: Pt more awake, alert, in no acute distress Objective - Vital Signs Vital signs: Vital Signs - 12hr 10/29/20 10/30/20 10/30/20 23:34 00:50 02:51 Temperature 99.5 F Pulse Rate 122 H Pulse Rate [ 70 Anterior] Respiratory 19 27 H Rate Respiratory 18 Rate [Anterior] Blood Pressure 129/58 135/109 O2 Sat by Pulse 87 Oximetry 10/30/20 10/30/20 10/30/20 03:36 03:51 03:52 Temperature 98.3 F Pulse Rate 90 Pulse Rate [ Anterior] Respiratory 17 Rate Respiratory Rate [Anterior] Blood Pressure 118/66 O2 Sat by Pulse 95 94 Oximetry 10/30/20 10/30/20 08:00 09:05 Temperature Pulse Rate Pulse Rate [ 90 Anterior] Respiratory Rate Respiratory 18 Rate [Anterior] Blood Pressure O2 Sat by Pulse 94 Oximetry - General Appearance General appearance: well-developed, well-nourished, appears stated age EENT: ATNC, PERRL, mucous membranes moist Neck: no JVD Respiratory: Present: Clear to Ascultation Cardiology: regular, S1S2 Gastrointestinal: normoactive bowel sounds Integumentary: no rash, other (no edema ) Neurologic: no focal deficit, alert and oriented x3, strength 5/5, CN 3-12 intact Psychiatric: mood/affect appropriate, cooperative - Lab 10/29/20 04:36 10/30/20 04:41 Most recent lab results ABG pH 7.565 (7.320-7.450) H 10/28/20 20:28 ABG O2 Saturation 99.7 (0-100) 10/28/20 20:28 Calcium 10.5 mg/dL (8.4-10.2) H 10/30/20 04:41 Medications & Allergies - Medications Allergies/Adverse Reactions: Allergies No Known Allergies Allergy (Verified 09/28/20 20:06) Home Medications: Home Medications Medication Instructions Recorded Confirmed Last Taken Type Epoetin Blayne 10,000 Unit [Procrit] 10,000 unit IV NINO PRN #1 vial 12/02/18 02/05/20 11/20/19 10:00 Rx polyethylene glycoL 3350 [Miralax 17 gm PO QDAY PRN #30 powd.pack 11/22/19 02/05/20 Unknown Rx 3350] Famotidine [Pepcid] 10 mg PO BID #60 tablet 09/20/20 Unknown Rx amLODIPine 5 mg PO QDAY #30 tablet 09/20/20 Unknown Rx Apixaban [Eliquis] 5 mg PO Q12HR tablet 10/08/20 Unknown Rx Metoprolol [Lopressor TAB] 25 mg PO BID tablet 10/08/20 Unknown Rx megestroL [Megestrol] 400 mg PO QDAY oral.liqd 10/08/20 Unknown Rx Active Medications: Generic Name Dose Route Start Last Admin Trade Name Freq PRN Reason Stop Dose Admin Acetaminophen 650 mg 10/28/20 22:36 Acetaminophen 325 Mg Tab PO Q4H PRN Pain MILD(1-3)/Fever >100.5/RUIZ Albuterol 2.5 mg 10/28/20 22:36 Albuterol 2.5 Mg/3 Ml Nebu IH Q4HRT PRN Shortness Of Breath Albuterol/Ipratropium 1 ampul 10/29/20 02:00 10/30/20 08:04 Ipratropium/Albuterol Sulfate 3 Ml Ampul.Neb IH 1 ampul Q6HRT BECKIE Administration Amlodipine Besylate 5 mg 10/29/20 10:00 10/29/20 10:25 Amlodipine 5 Mg Tab PO Not Given QDAY [facility]EC[facility] Apixaban 5 mg 10/29/20 10:00 10/29/20 23:30 Apixaban 5 Mg Tab PO Not Given Q12HR BECKIE Dextrose 50 ml 10/28/20 22:36 10/29/20 10:31 Dextrose 50% In Water (25gm) 50 Ml Syringe IV 50 ml Q30MIN PRN Administration Hypoglycemia Protocol Famotidine 20 mg 10/29/20 10:00 10/29/20 10:26 Famotidine 20 Mg/2 Ml Inj IV Not Given DAILY [facility] Ceftriaxone Sodium 1 gm in 50 mls @ 100 mls/hr 10/28/20 23:00 10/29/20 23:54 Rocephin/Ns 1 Gm/50 Ml IV 11/01/20 23:29 100 mls/hr Q24H BECKIE Administration Protocol Sodium Chloride 100 mls @ 999 mls/hr 10/29/20 08:00 Nacl 0.9% IV NNIO PRN Hypotension Dextrose/Sodium Chloride 1,000 mls @ 75 mls/hr 10/29/20 10:00 10/29/20 23:53 D5ns IV 75 mls/hr DIRECT [facility]EC[facility] Administration Insulin Human Lispro 0 unit 10/29/20 07:30 10/30/20 08:49 Insulin Lispro 100 Unit/Ml SUB-Q Not Given ACHS [facility] Protocol Megestrol Acetate 400 mg 10/29/20 10:00 10/29/20 10:25 Megestrol 400 Mg/10 Ml Oral Liqd PO Not Given QDAY [facility] Metoprolol Tartrate 25 mg 10/29/20 10:00 10/29/20 23:29 Metoprolol Tartrate 25 Mg Tab PO Not Given BID [facility] Ondansetron HCl 4 mg 10/28/20 22:36 Ondansetron 4 Mg/2 Ml Inj IV Q8H PRN Nausea And Vomiting Polyethylene Glycol 17 gm 10/28/20 22:40 Polyethylene Glycol 3350 17 Gm Powder PO QDAY PRN Constipation Sodium Chloride 10 ml 10/29/20 10:00 10/29/20 23:54 Sodium Chloride 0.9% 10 Ml Flush Syringe IV 10 ml BID BECKIE Administration Sodium Chloride 10 ml 10/28/20 22:36 Sodium Chloride 0.9% 10 Ml Flush Syringe IV PRN PRN LINE FLUSH
[2020-10-30] MEDS ORDERED: SODIUM CHLORIDE 0.9% 100 ML IV PRN ×2 (11:00)
[2020-10-30] MEDS: EPOETIN ALFA-EPBX 10,000 UNIT/1 ML VIAL IV PRN (16:01)
--- NOTE | 2020-10-30 16:17 | Progress Note ---
Assessment and Plan -- Acute metabolic encephalopathy most likely secondary to dementia, chronic kidney disease and hypoxia. CT head w/o any acute infract supportive care, monitor clinically --Acute Hypoxic Respiratory failure s/p bipap. likely due to volume overload from ESRD negative for COVID DuoNeb by nebulizer every 4 hours. Albuterol via nebulizer every 4 hours as needed. consulted nephrology for dialysis We will monitor the patient closely -- ESRD on dialysis Avoid nephrotoxic drug. Renally dose medication. consulted nephrology for dialysis -- Acute diastolic (congestive) heart failure Stable. We will continue the home medication. Outpatient follow-up with cardiology -- Vascular dementia supportive care. Outpatient follow-up with neurology -- Transient hypotension Resolved. Blood pressure is now 128/87. We will monitor the blood pressure closely. We continue the home medication -- DM2 (diabetes mellitus, type 2) We will put the patient on 1800 kcal ADA pureed diet. Humalog sliding scale Accu-Chek before meals and at bedtime with moderate dose coverage. Diabetic education --CVA, old cont eliquis, statin, follow up outpt with neurology -- DVT prophylaxis: Eliquis 5 mg p.o. twice daily for DVT prophylaxis. Pepcid 20 mg IV twice daily for GI prophylaxis. Patient is a full code Daily clinical course: 10/29: We will rule out for COVID-19, test ordered, pt on bipap, nephro consulted for HD, follow clinically 10/30: s/p HD today, pt on RA, very confused, ordered PT/ST Subjective Date of service: 10/30/20 Principal diagnosis: ESRD Interval history: Patient seen and examined s/p HD today patient sitting on bed nonverbal food tray in front but not eating very confused but alert pt on RA Objective - Constitutional Vitals: Vital Signs - 12hr 10/30/20 10/30/20 08:00 09:05 Pulse Rate [ 90 Anterior] Respiratory 18 Rate [Anterior] O2 Sat by Pulse 94 Oximetry General appearance: Present: no acute distress, well-nourished, other (elderly AAM appears very confused) - EENT Eyes: PERRL, EOM intact ENT: hearing intact, clear oral mucosa Ears: bilateral: normal - Neck Neck: supple, normal ROM - Respiratory Respiratory effort: normal Respiratory: bilateral: CTA - Breasts Breasts: normal - Cardiovascular Rhythm: regular Heart Sounds: Present: S1 & S2. Absent: gallop, rub Extremities: pulses intact, No edema, normal color, Full ROM - Gastrointestinal General gastrointestinal: Present: soft, non-tender, non-distended, normal bowel sounds - Integumentary Integumentary: clear, warm, dry - Musculoskeletal Musculoskeletal: generalized weakness - Neurologic Neurologic: moves all extremities, no gait normal - Psychiatric Psychiatric: no appropriate mood/affect, no intact judgment & insight, no memory intact - Labs CBC & Chem 7: 10/31/20 05:23 10/31/20 05:23 Labs: Abnormal lab results 10/30/20 10/30/20 Range/Units 04:41 08:13 Chloride 94.2 L (98-107) mmol/L BUN 36 H (9-20) mg/dL Creatinine 7.4 H (0.8-1.3) mg/dL Glucose 146 H (75-100) mg/dL POC Glucose 120 H (70-105) mg/dL Calcium 10.5 H (8.4-10.2) mg/dL
[2020-10-30] MEDS: METOPROLOL TARTRATE 25 MG TAB PO SCH ×2 (19:02→22:01)
[2020-10-30] MEDS: APIXABAN 5 MG TAB PO SCH ×2 (19:02→22:02)
[2020-10-30] MEDS: FAMOTIDINE 20 MG/2 ML INJ IV SCH (19:02)
[2020-10-30] MEDS: MEGESTROL 400 MG/10 ML ORAL LIQD PO SCH (19:02)
[2020-10-30] MEDS: amLODIPine 5 MG TAB PO SCH (19:02)
[2020-10-30] MEDS: cefTRIAXone/NS 1 GM/50 ML 1 GM/50 ML BAG IV SCH (22:01)
[2020-10-30] MEDS ORDERED: dilTIAZem 25 MG/5 ML INJ IV ONE (22:46)
[2020-10-31] MEDS: IPRATROPIUM/ALBUTEROL SULFATE 3 ML AMPUL.NEB IH SCH ×3 (04:10→22:22)
[2020-10-31 06:54] LABS: Basophils % (Auto) 0.1 % (0.0-1.8); Eosinophils % (Auto) 0.5 % (0.0-4.3); Hematocrit 33.2 % (35.5-45.6); Hemoglobin 11.3 gm/dl (11.8-15.2); Lymphocytes # (Auto) 1.1 K/mm3 (1.2-5.4); Lymphocytes % (Auto) 12.6 % (13.4-35.0); Mean Corpuscular HGB Conc 34 % (32-34); Mean Corpuscular Volume 106 fl (84-94); Monocytes % (Auto) 12.1 % (0.0-7.3); Platelet Count 122 K/mm3 (140-440); Red Blood Count 3.14 M/mm3 (3.65-5.03); Red Cell Distribution Width 16.4 % (13.2-15.2)
[2020-10-31 07:06] LABS: Calcium 9.8 mg/dL (8.4-10.2)
[2020-10-31] MEDS: INSULIN LISPRO 100 UNIT/ML SUB-Q SCH ×4 (07:30→22:08)
--- NOTE | 2020-10-31 09:28 | Progress Note ---
Assessment and Plan Assessment and plan: -- Acute metabolic encephalopathy most likely secondary to dementia, chronic kidney disease and hypoxia. CT head w/o any acute infract supportive care, monitor clinically --Acute Hypoxic Respiratory failure s/p bipap. likely due to volume overload from ESRD negative for COVID DuoNeb by nebulizer every 4 hours. Albuterol via nebulizer every 4 hours as needed. consulted nephrology for dialysis We will monitor the patient closely -- ESRD on dialysis Avoid nephrotoxic drug. Renally dose medication. consulted nephrology for dialysis -- Acute diastolic (congestive) heart failure Stable. We will continue the home medication. Outpatient follow-up with cardiology -- Vascular dementia supportive care. Outpatient follow-up with neurology -- Transient hypotension Resolved. Blood pressure is now 128/87. We will monitor the blood pressure closely. We continue the home medication -- DM2 (diabetes mellitus, type 2) We will put the patient on 1800 kcal ADA pureed diet. Humalog sliding scale Accu-Chek before meals and at bedtime with moderate dose coverage. Diabetic education --CVA, old cont eliquis, statin, follow up outpt with neurology -- DVT prophylaxis: Eliquis 5 mg p.o. twice daily for DVT prophylaxis. Pepcid 20 mg IV twice daily for GI prophylaxis. Patient is a full code Daily clinical course: 10/29: We will rule out for COVID-19, test ordered, pt on bipap, nephro consulted for HD, follow clinically 10/30: s/p HD today, pt on RA, very confused, ordered PT/ST 10/31 Patient with acute metabolic encephalopathy, acute resp failure, ESRD on dialysis. He is still confused. Ammonia level not elevated. History Interval history: Altered mental status Hospitalist Physical - Physical exam Narrative exam: Gen:Not in acute distress, lying in bed HEENT:Normocephalic, atraumatic Neck:supple, no JVD Lungs:clear to auscultation, bilaterally, no wheeze Heart:S1 and S2 reg, no murmurs, rubs or gallop Abd:Soft, non tender, non distended, normal bowel sounds Ext:No edema. no clubbing, no cyanosis Neuro:Awake,alert, confused - Constitutional Vitals: Temp Pulse Resp BP Pulse Ox 97.9 F 86 16 98/69 92 10/31/20 08:26 10/31/20 08:26 10/31/20 08:26 10/31/20 08:26 10/31/20 08:26 General appearance: Present: other Results - Labs CBC & Chem 7: 10/31/20 05:23 10/31/20 05:23 Labs: Laboratory Last Values WBC 8.5 K/mm3 (4.5-11.0) 10/31/20 05:23 RBC 3.14 M/mm3 (3.65-5.03) L 10/31/20 05:23 Hgb 11.3 gm/dl (11.8-15.2) L 10/31/20 05:23 Hct 33.2 % (35.5-45.6) L 10/31/20 05:23 MCV 106 fl (84-94) H 10/31/20 05:23 MCH 36 pg (28-32) H 10/31/20 05:23 MCHC 34 % (32-34) 10/31/20 05:23 RDW 16.4 % (13.2-15.2) H 10/31/20 05:23 Plt Count 122 K/mm3 (140-440) L 10/31/20 05:23 Lymph % (Auto) 12.6 % (13.4-35.0) L 10/31/20 05:23 [facility] [place] [facility] % (Auto) 12.1 % (0.0-7.3) H 10/31/20 05:23 Eos % (Auto) 0.5 % (0.0-4.3) 10/31/20 05:23 Baso % (Auto) 0.1 % (0.0-1.8) 10/31/20 05:23 Lymph # (Auto) 1.1 K/mm3 (1.2-5.4) L 10/31/20 05:23 [facility] # (Auto) 1.0 K/mm3 (0.0-0.8) H 10/31/20 05:23 Eos # (Auto) 0.0 K/mm3 (0.0-0.4) 10/31/20 05:23 Baso # (Auto) 0.0 K/mm3 (0.0-0.1) 10/31/20 05:23 Seg Neutrophils % 74.7 % (40.0-70.0) H 10/31/20 05:23 Seg Neutrophils # 6.4 K/mm3 (1.8-7.7) 10/31/20 05:23 ABG pH 7.565 (7.320-7.450) H 10/28/20 20:28 POC ABG pCO2 33.1 mmHg (32.0-48.0) 10/28/20 20:28 POC ABG pO2 203.1 mmHg (83-108) H 10/28/20 20:28 POC ABG HCO3 29.3 10/28/20 20:28 ABG O2 Saturation 99.7 (0-100) 10/28/20 20:28 POC ABG Base Excess 7.2 10/28/20 20:28 ABG Hemoglobin 13.1 (12.0-17.5) 10/28/20 20:28 ABG Oxyhemoglobin 99.0 (94-98) H 10/28/20 20:28 ABG Methemoglobin 0.3 (0.0-1.5) 10/28/20 20:28 ABG Sodium 131.7 mmol/L (136.0-145.0) L 10/28/20 20:28 ABG Potassium 3.5 mmol/L (3.40-4.50) 10/28/20 20:28 ABG Chloride 95.0 mmol/L (98-107) L 10/28/20 20:28 ABG Glucose 114 mg/dL (65-95) H 10/28/20 20:28 Carboxyhemoglobin 0.4 (0.5-1.5) L 10/28/20 20:28 FiO2 % 50 10/28/20 20:28 Sodium 137 mmol/L (137-145) 10/31/20 05:23 Potassium 3.8 mmol/L (3.6-5.0) 10/31/20 05:23 Chloride 101.2 mmol/L (98-107) 10/31/20 05:23 Carbon Dioxide 27 mmol/L (22-30) 10/31/20 05:23 Anion Gap 13 mmol/L 10/31/20 05:23 BUN 24 mg/dL (9-20) H 10/31/20 05:23 Creatinine 6.1 mg/dL (0.8-1.3) H 10/31/20 05:23 Estimated GFR 11 ml/min 10/31/20 05:23 BUN/Creatinine Ratio 4 % 10/31/20 05:23 Glucose 115 mg/dL (75-100) H 10/31/20 05:23 POC Glucose 72 mg/dL (70-105) 10/30/20 21:09 Lactic Acid 1.70 mmol/L (0.7-2.0) 10/28/20 23:35 Calcium 9.8 mg/dL (8.4-10.2) 10/31/20 05:23 Total Bilirubin 0.40 mg/dL (0.1-1.2) 10/28/20 20:27 AST 13 units/L (5-40) 10/28/20 20:27 ALT 10 units/L (7-56) 10/28/20 20:27 Alkaline Phosphatase 45 units/L (35-129) 10/28/20 20:27 Ammonia 13.0 umol/L (25-60) L 10/28/20 20:27 Total Protein 7.2 g/dL (6.3-8.2) 10/28/20 20:27 Albumin 3.3 g/dL (3.9-5) L 10/28/20 20:27 Albumin/Globulin Ratio 0.8 % 10/28/20 20:27 TSH 2.420 mlU/mL (0.270-4.200) 10/28/20 20:27 Arterial Blood Glucose 114 mg/dL (65-95) H 10/28/20 20:28 Arterial Blood Ionized Calcium 4.4 mg/dL (4.6-5.3) L 10/28/20 20:28 Plasma/Serum Alcohol < 0.01 % (0-0.07) 10/28/20 20:27 Coronavirus (PCR) Negative (Negative) 10/29/20 09:45 Hepatitis A IgM Ab Non-reactive (NonReactive) 10/29/20 08:48 Hep Bs Antigen Nonreactive (Negative) 10/29/20 08:48 Hep B Core IgM Ab Non-reactive (NonReactive) 10/29/20 08:48 Hepatitis C Antibody Non-reactive (NonReactive) 10/29/20 08:48 David/IV: Voiding Method Bedpan Active Medications - Current Medications Current Medications: Generic Name Dose Route Start Last Admin Trade Name Freq PRN Reason Stop Dose Admin Acetaminophen 650 mg 10/28/20 22:36 Acetaminophen 325 Mg Tab PO Q4H PRN Pain MILD(1-3)/Fever >100.5/RUIZ Albuterol 2.5 mg 10/28/20 22:36 Albuterol 2.5 Mg/3 Ml Nebu IH Q4HRT PRN Shortness Of Breath Albuterol/Ipratropium 1 ampul 10/29/20 02:00 10/31/20 04:10 Ipratropium/Albuterol Sulfate 3 Ml Ampul.Neb IH Not Given Q6HRT BECKIE Amlodipine Besylate 5 mg 10/29/20 10:00 10/30/20 19:02 Amlodipine 5 Mg Tab PO Not Given QDAY [facility] Apixaban 5 mg 10/29/20 10:00 10/30/20 22:02 Apixaban 5 Mg Tab PO 5 mg Q12HR BECKIE Administration Dextrose 50 ml 10/28/20 22:36 10/29/20 10:31 Dextrose 50% In Water (25gm) 50 Ml Syringe IV 50 ml Q30MIN PRN Administration Hypoglycemia Protocol Famotidine 20 mg 10/29/20 10:00 10/30/20 19:02 Famotidine 20 Mg/2 Ml Inj IV Not Given DAILY [facility] Ceftriaxone Sodium 1 gm in 50 mls @ 100 mls/hr 10/28/20 23:00 10/30/20 22:01 Rocephin/Ns 1 Gm/50 Ml IV 11/01/20 23:29 100 mls/hr Q24H BECKIE Administration Protocol Dextrose/Sodium Chloride 1,000 mls @ 50 mls/hr 10/29/20 10:00 10/29/20 23:53 D5ns IV 75 mls/hr DIRECT BECKIE Administration Sodium Chloride 100 mls @ 999 mls/hr 10/30/20 11:00 Nacl 0.9% IV NINO PRN Hypotension Insulin Human Lispro 0 unit 10/29/20 07:30 10/30/20 21:55 Insulin Lispro 100 Unit/Ml SUB-Q Not Given ACHS [facility] Protocol Megestrol Acetate 400 mg 10/29/20 10:00 10/30/20 19:02 Megestrol 400 Mg/10 Ml Oral Liqd PO Not Given QDAY [facility] Metoprolol Tartrate 25 mg 10/29/20 10:00 10/30/20 22:01 Metoprolol Tartrate 25 Mg Tab PO 25 mg BID BECKIE Administration Ondansetron HCl 4 mg 10/28/20 22:36 Ondansetron 4 Mg/2 Ml Inj IV Q8H PRN Nausea And Vomiting Polyethylene Glycol 17 gm 10/28/20 22:40 Polyethylene Glycol 3350 17 Gm Powder PO QDAY PRN Constipation Sodium Chloride 10 ml 10/29/20 10:00 10/30/20 22:02 Sodium Chloride 0.9% 10 Ml Flush Syringe IV 10 ml BID BECKIE Administration Sodium Chloride 10 ml 10/28/20 22:36 Sodium Chloride 0.9% 10 Ml Flush Syringe IV PRN PRN LINE FLUSH Nutrition/Malnutrition Assess - Dietary Evaluation Nutrition/Malnutrition Findings: Nutrition Notes Start: 10/29/20 07:49 Freq: Status: Active Protocol: Document 10/30/20 14:10 (Rec: 10/30/20 14:10 FREDY [id number]) Nutrition Notes Need for Assessment 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 Pt at HD. Nutrition Intervention Follow-Up By: 10/31/20 Additional Comments F/u: assessment and diet education needs
[2020-10-31] MEDS: APIXABAN 5 MG TAB PO SCH ×2 (11:46→22:07)
[2020-10-31] MEDS: FAMOTIDINE 20 MG/2 ML INJ IV SCH (11:46)
[2020-10-31] MEDS: amLODIPine 5 MG TAB PO SCH (11:47)
[2020-10-31] MEDS: METOPROLOL TARTRATE 25 MG TAB PO SCH ×2 (11:47→22:07)
[2020-10-31] MEDS: D5W/0.9% NACL 1,000 ML IV SCH ×2 (11:49→22:06)
[2020-10-31] MEDS: DEXTROSE 50% IN WATER (25GM) 50 ML SYRINGE IV PRN ×2 (13:02→22:07)
--- NOTE | 2020-10-31 16:49 | Progress Note ---
Assessment and Plan - Patient Problems (1) ESRD on dialysis Current Visit: Yes Status: Chronic Plan to address problem: Cont HD on MWF schedule (2) Acute encephalopathy Current Visit: Yes Status: Acute Plan to address problem: possibly secondary to prolonged hypoxemia, pulmonary edema. CT head showed no acute findings. Doubt uremic encephalopathy, since pt has been compliant with HD treatments, BUN in the 20s (3) Hypertensive chronic kidney disease with stage 5 chronic kidney disease or end stage renal disease Current Visit: Yes Status: Acute Plan to address problem: monitor BP on current meds (4) Anemia in chronic kidney disease Current Visit: No Status: Chronic Plan to address problem: Hb at target, no further EPO require at this time Subjective Date of service: 10/31/20 Principal diagnosis: ESRD Interval history: Pt more awake, alert, in no acute distress Objective - Vital Signs Vital signs: Vital Signs - 12hr 10/31/20 10/31/20 10/31/20 08:26 09:50 10:00 Temperature 97.9 F Pulse Rate 86 Pulse Rate [ 84 Anterior] Respiratory 16 Rate Respiratory 18 Rate [Anterior] Blood Pressure Blood Pressure 98/69 [Left] O2 Sat by Pulse 92 92 Oximetry 10/31/20 10/31/20 10/31/20 10:04 11:47 11:57 Temperature 98.4 F Pulse Rate 86 73 Pulse Rate [ Anterior] Respiratory 18 Rate Respiratory Rate [Anterior] Blood Pressure 98/69 Blood Pressure 114/68 [Left] O2 Sat by Pulse 92 95 Oximetry 10/31/20 10/31/20 14:00 16:39 Temperature 98.6 F Pulse Rate 106 H 72 Pulse Rate [ Anterior] Respiratory 18 Rate Respiratory Rate [Anterior] Blood Pressure Blood Pressure 100/68 [Left] O2 Sat by Pulse 95 Oximetry - General Appearance General appearance: well-developed, well-nourished, appears stated age EENT: ATNC, PERRL, mucous membranes moist Neck: no JVD Respiratory: Present: Clear to Ascultation Cardiology: regular, S1S2 Gastrointestinal: normoactive bowel sounds Integumentary: no rash Neurologic: no focal deficit, alert and oriented x3, strength 5/5, CN 3-12 intact - Lab 10/31/20 05:23 10/31/20 05:23 Most recent lab results ABG pH 7.565 (7.320-7.450) H 10/28/20 20:28 ABG O2 Saturation 99.7 (0-100) 10/28/20 20:28 Calcium 9.8 mg/dL (8.4-10.2) 10/31/20 05:23 Medications & Allergies - Medications Allergies/Adverse Reactions: Allergies No Known Allergies Allergy (Verified 09/28/20 20:06) Home Medications: Home Medications Medication Instructions Recorded Confirmed Last Taken Type Epoetin Blayne 10,000 Unit [Procrit] 10,000 unit IV NINO PRN #1 vial 12/02/18 02/05/20 11/20/19 10:00 Rx polyethylene glycoL 3350 [Miralax 17 gm PO QDAY PRN #30 powd.pack 11/22/19 02/05/20 Unknown Rx 3350] Famotidine [Pepcid] 10 mg PO BID #60 tablet 09/20/20 Unknown Rx amLODIPine 5 mg PO QDAY #30 tablet 09/20/20 Unknown Rx Apixaban [Eliquis] 5 mg PO Q12HR tablet 10/08/20 Unknown Rx Metoprolol [Lopressor TAB] 25 mg PO BID tablet 10/08/20 Unknown Rx megestroL [Megestrol] 400 mg PO QDAY oral.liqd 10/08/20 Unknown Rx Active Medications: Generic Name Dose Route Start Last Admin Trade Name Freq PRN Reason Stop Dose Admin Acetaminophen 650 mg 10/28/20 22:36 Acetaminophen 325 Mg Tab PO Q4H PRN Pain MILD(1-3)/Fever >100.5/RUIZ Albuterol 2.5 mg 10/28/20 22:36 Albuterol 2.5 Mg/3 Ml Nebu IH Q4HRT PRN Shortness Of Breath Albuterol/Ipratropium 1 ampul 10/31/20 20:00 Ipratropium/Albuterol Sulfate 3 Ml Ampul.Neb IH BIDRT BECKIE Amlodipine Besylate 5 mg 10/29/20 10:00 10/31/20 11:47 Amlodipine 5 Mg Tab PO Not Given QDAY [facility] Apixaban 5 mg 10/29/20 10:00 10/31/20 11:46 Apixaban 5 Mg Tab PO 5 mg Q12HR BECKIE Administration Dextrose 50 ml 10/28/20 22:36 10/31/20 13:02 Dextrose 50% In Water (25gm) 50 Ml Syringe IV 20 ml Q30MIN PRN Administration Hypoglycemia Protocol Famotidine 20 mg 11/01/20 10:00 Famotidine 20 Mg Tab PO DAILY [facility] Ceftriaxone Sodium 1 gm in 50 mls @ 100 mls/hr 10/28/20 23:00 10/30/20 22:01 Rocephin/Ns 1 Gm/50 Ml IV 11/01/20 23:29 100 mls/hr Q24H BECKIE Administration Protocol Dextrose/Sodium Chloride 1,000 mls @ 50 mls/hr 10/29/20 10:00 10/31/20 11:49 D5ns IV 75 mls/hr DIRECT BECKIE Administration Sodium Chloride 100 mls @ 999 mls/hr 10/30/20 11:00 Nacl 0.9% IV NINO PRN Hypotension Insulin Human Lispro 0 unit 10/29/20 07:30 10/31/20 12:43 Insulin Lispro 100 Unit/Ml SUB-Q Not Given ACHS [facility] Protocol Megestrol Acetate 400 mg 10/29/20 10:00 10/30/20 19:02 Megestrol 400 Mg/10 Ml Oral Liqd PO Not Given QDAY [facility] Metoprolol Tartrate 25 mg 10/29/20 10:00 10/31/20 11:47 Metoprolol Tartrate 25 Mg Tab PO Not Given BID [facility] Ondansetron HCl 4 mg 10/28/20 22:36 Ondansetron 4 Mg/2 Ml Inj IV Q8H PRN Nausea And Vomiting Polyethylene Glycol 17 gm 10/28/20 22:40 Polyethylene Glycol 3350 17 Gm Powder PO QDAY PRN Constipation Sodium Chloride 10 ml 10/29/20 10:00 10/31/20 11:48 Sodium Chloride 0.9% 10 Ml Flush Syringe IV 10 ml BID BECKIE Administration Sodium Chloride 10 ml 10/28/20 22:36 Sodium Chloride 0.9% 10 Ml Flush Syringe IV PRN PRN LINE FLUSH
[2020-10-31] MEDS: cefTRIAXone/NS 1 GM/50 ML 1 GM/50 ML BAG IV SCH (22:07)
[2020-11-01 06:05] LABS: Hematocrit 34.5 % (35.5-45.6); Hemoglobin 11.4 gm/dl (11.8-15.2); Mean Corpuscular HGB Conc 33 % (32-34); Mean Corpuscular Volume 108 fl (84-94); Platelet Count 133 K/mm3 (140-440); Red Blood Count 3.19 M/mm3 (3.65-5.03); Red Cell Distribution Width 16.3 % (13.2-15.2)
[2020-11-01] MEDS: INSULIN LISPRO 100 UNIT/ML SUB-Q SCH ×2 (08:03→22:10)
[2020-11-01] MEDS: FAMOTIDINE 20 MG TAB PO SCH (10:04)
[2020-11-01] MEDS: APIXABAN 5 MG TAB PO SCH ×3 (10:04→22:09)
[2020-11-01] MEDS: MEGESTROL 400 MG/10 ML ORAL LIQD PO SCH ×2 (10:04→15:28)
[2020-11-01] MEDS: METOPROLOL TARTRATE 25 MG TAB PO SCH ×3 (10:04→22:08)
[2020-11-01] MEDS: amLODIPine 5 MG TAB PO SCH ×2 (10:04→15:29)
--- NOTE | 2020-11-01 11:05 | Progress Note ---
Assessment and Plan - Patient Problems (1) ESRD on dialysis Current Visit: Yes Status: Chronic Plan to address problem: Cont HD on MWF schedule (2) Acute encephalopathy Current Visit: Yes Status: Acute Plan to address problem: possibly secondary to prolonged hypoxemia, pulmonary edema. CT head showed no acute findings. Doubt uremic encephalopathy, since pt has been compliant with HD treatments, BUN in the 20s (3) Hypertensive chronic kidney disease with stage 5 chronic kidney disease or end stage renal disease Current Visit: Yes Status: Acute Plan to address problem: monitor BP on current meds (4) Anemia in chronic kidney disease Current Visit: No Status: Chronic Plan to address problem: Hb at target, no further EPO require at this time Subjective Date of service: 11/01/20 Principal diagnosis: ESRD Interval history: Pt seen and examined during HD, awake, alert, in no acute distress Objective - Vital Signs Vital signs: Vital Signs - 12hr 10/31/20 11/01/20 11/01/20 23:47 04:23 06:00 Temperature 98.2 F 98.4 F Pulse Rate 76 88 100 H Respiratory 20 20 Rate Blood Pressure Blood Pressure 138/80 140/82 [Left] O2 Sat by Pulse 96 97 Oximetry O2 Sat by Pulse Oximetry [ Anterior] O2 Sat by Pulse Oximetry [ Bilateral Throughout] 11/01/20 11/01/20 09:45 10:00 Temperature 98.4 F Pulse Rate 93 H 98 H Respiratory 18 Rate Blood Pressure 137/90 129/70 Blood Pressure [Left] O2 Sat by Pulse Oximetry O2 Sat by Pulse 100 Oximetry [ Anterior] O2 Sat by Pulse 100 Oximetry [ Bilateral Throughout] - General Appearance General appearance: well-developed, well-nourished, appears stated age EENT: ATNC, PERRL, mucous membranes moist Neck: no JVD Respiratory: Present: Clear to Ascultation Cardiology: regular, S1S2 Gastrointestinal: normoactive bowel sounds Integumentary: no rash, other (no edema ) Neurologic: no focal deficit, alert and oriented x3, strength 5/5, CN 3-12 intact Psychiatric: mood/affect appropriate, cooperative - Lab 11/01/20 04:39 10/31/20 05:23 Most recent lab results ABG pH 7.565 (7.320-7.450) H 10/28/20 20:28 ABG O2 Saturation 99.7 (0-100) 10/28/20 20:28 Calcium 9.8 mg/dL (8.4-10.2) 10/31/20 05:23 Medications & Allergies - Medications Allergies/Adverse Reactions: Allergies No Known Allergies Allergy (Verified 09/28/20 20:06) Home Medications: Home Medications Medication Instructions Recorded Confirmed Last Taken Type Epoetin Blayne 10,000 Unit [Procrit] 10,000 unit IV NINO PRN #1 vial 12/02/18 02/05/20 11/20/19 10:00 Rx polyethylene glycoL 3350 [Miralax 17 gm PO QDAY PRN #30 powd.pack 11/22/19 02/05/20 Unknown Rx 3350] Famotidine [Pepcid] 10 mg PO BID #60 tablet 09/20/20 Unknown Rx amLODIPine 5 mg PO QDAY #30 tablet 09/20/20 Unknown Rx Apixaban [Eliquis] 5 mg PO Q12HR tablet 10/08/20 Unknown Rx Metoprolol [Lopressor TAB] 25 mg PO BID tablet 10/08/20 Unknown Rx megestroL [Megestrol] 400 mg PO QDAY oral.liqd 10/08/20 Unknown Rx Active Medications: Generic Name Dose Route Start Last Admin Trade Name Freq PRN Reason Stop Dose Admin Acetaminophen 650 mg 10/28/20 22:36 Acetaminophen 325 Mg Tab PO Q4H PRN Pain MILD(1-3)/Fever >100.5/RUIZ Albuterol 2.5 mg 10/28/20 22:36 Albuterol 2.5 Mg/3 Ml Nebu IH Q4HRT PRN Shortness Of Breath Albuterol/Ipratropium 1 ampul 10/31/20 20:00 10/31/20 22:22 Ipratropium/Albuterol Sulfate 3 Ml Ampul.Neb IH 1 ampul BIDRT BECKIE Administration Amlodipine Besylate 5 mg 10/29/20 10:00 11/01/20 10:04 Amlodipine 5 Mg Tab PO Not Given QDAY [facility]EC[facility] Apixaban 5 mg 10/29/20 10:00 11/01/20 10:04 Apixaban 5 Mg Tab PO Not Given Q12HR BECKIE Dextrose 50 ml 10/28/20 22:36 10/31/20 22:07 Dextrose 50% In Water (25gm) 50 Ml Syringe IV 50 ml Q30MIN PRN Administration Hypoglycemia Protocol Famotidine 20 mg 11/01/20 10:00 11/01/20 10:04 Famotidine 20 Mg Tab PO Not Given DAILY [facility] Ceftriaxone Sodium 1 gm in 50 mls @ 100 mls/hr 10/28/20 23:00 10/31/20 22:07 Rocephin/Ns 1 Gm/50 Ml IV 11/01/20 23:29 100 mls/hr Q24H BECKIE Administration Protocol Dextrose/Sodium Chloride 1,000 mls @ 50 mls/hr 10/29/20 10:00 10/31/20 22:06 D5ns IV 75 mls/hr DIRECT BECKIE Administration Sodium Chloride 100 mls @ 999 mls/hr 10/30/20 11:00 Nacl 0.9% IV NINO PRN Hypotension Insulin Human Lispro 0 unit 10/29/20 07:30 11/01/20 08:03 Insulin Lispro 100 Unit/Ml SUB-Q Not Given ACHS [facility] Protocol Megestrol Acetate 400 mg 10/29/20 10:00 11/01/20 10:04 Megestrol 400 Mg/10 Ml Oral Liqd PO Not Given QDAY [facility] Metoprolol Tartrate 25 mg 10/29/20 10:00 11/01/20 10:04 Metoprolol Tartrate 25 Mg Tab PO Not Given BID [facility] [place] Ondansetron HCl 4 mg 10/28/20 22:36 Ondansetron 4 Mg/2 Ml Inj IV Q8H PRN Nausea And Vomiting Polyethylene Glycol 17 gm 10/28/20 22:40 Polyethylene Glycol 3350 17 Gm Powder PO QDAY PRN Constipation Sodium Chloride 10 ml 10/29/20 10:00 10/31/20 22:08 Sodium Chloride 0.9% 10 Ml Flush Syringe IV 10 ml BID BECKIE Administration Sodium Chloride 10 ml 10/28/20 22:36 Sodium Chloride 0.9% 10 Ml Flush Syringe IV PRN PRN LINE FLUSH
--- NOTE | 2020-11-01 11:19 | Discharge Summary ---
Providers - Providers Date of Admission: 10/28/20 22:37 Date of discharge: 11/01/20 Attending physician: EDITA CROWDER 10/28/20 22:14 Consult to Physician [CONS] Routine Comment: Consulting Provider: ALETHA VELAZQUEZ Physician Instructions: Reason For Exam: ESRD on HD, Volume overload 10/28/20 22:37 Consult to Dietitian/Nutrition [CONS] Routine Physician Instructions: Reason For Exam: Reason for Consult: Diet education 10/30/20 10:27 Speech Therapy Evaluation and Treat [CONS] Routine Reason For Exam: aspiration 10/30/20 12:18 Occupational Therapy Evaluate and Treat [CONS] Urgent Comment: Reason For Exam: OT to eval and treat Physical Therapy Evaluation and Treat [CONS] Urgent Comment: Reason For Exam: PT to eval and treat Primary care physician: CHASE SOSA MD Hospitalization Condition: Stable Disposition: 03 [facility] Core Measure Documentation - Palliative Care Palliative Care/ Comfort Measures: Not Applicable - Core Measures Any of the following diagnoses?: none Exam - Constitutional Vitals: Temp Pulse Resp BP Pulse Ox 98.4 F 98 H 18 129/70 100 11/01/20 09:45 11/01/20 10:00 11/01/20 09:45 11/01/20 10:00 11/01/20 09:45 Plan Activity: advance as tolerated Diet: renal, other (Pureed diet) Plan of Treatment: 1.Follow up with Physician at [facility] in 2-3 days Follow up with: PRIMARY MD SHEILA [Primary Care Provider] - 3-5 Days
[2020-11-01] MEDS: IPRATROPIUM/ALBUTEROL SULFATE 3 ML AMPUL.NEB IH SCH ×2 (11:27→21:05)
[2020-11-01] MEDS: EPOETIN ALFA-EPBX 10,000 UNIT/1 ML VIAL IV PRN (13:00)
[2020-11-01] MEDS: D5W/0.9% NACL 1,000 ML IV SCH ×2 (15:28→19:51)
[2020-11-01] MEDS: cefTRIAXone/NS 1 GM/50 ML 1 GM/50 ML BAG IV SCH (22:09)
--- NOTE | 2020-11-01 22:39 | Progress Note ---
Assessment and Plan Assessment and plan: -- Acute metabolic encephalopathy most likely secondary to dementia, chronic kidney disease and hypoxia. CT head w/o any acute infract supportive care, monitor clinically --Acute Hypoxic Respiratory failure s/p bipap. likely due to volume overload from ESRD negative for COVID DuoNeb by nebulizer every 4 hours. Albuterol via nebulizer every 4 hours as needed. consulted nephrology for dialysis We will monitor the patient closely -- ESRD on dialysis Avoid nephrotoxic drug. Renally dose medication. consulted nephrology for dialysis -- Acute diastolic (congestive) heart failure Stable. We will continue the home medication. Outpatient follow-up with cardiology -- Vascular dementia supportive care. Outpatient follow-up with neurology -- Transient hypotension Resolved. Blood pressure is now 128/87. We will monitor the blood pressure closely. We continue the home medication -- DM2 (diabetes mellitus, type 2) We will put the patient on 1800 kcal ADA pureed diet. Humalog sliding scale Accu-Chek before meals and at bedtime with moderate dose coverage. Diabetic education --CVA, old cont eliquis, statin, follow up outpt with neurology -- DVT prophylaxis: Eliquis 5 mg p.o. twice daily for DVT prophylaxis. Pepcid 20 mg IV twice daily for GI prophylaxis. Patient is a full code Daily clinical course: 10/29: We will rule out for COVID-19, test ordered, pt on bipap, nephro consulted for HD, follow clinically 10/30: s/p HD today, pt on RA, very confused, ordered PT/ST 10/31 Patient with acute metabolic encephalopathy, acute resp failure, ESRD on dialysis. He is still confused. Ammonia level not elevated. 11/01 Patient with dementia, acute metabolic encephalopathy. he is improved, close to baseline. He is stable to discharge back to SNF. Discharge orders put in but waiting on authorization for SNF to take him back. History Interval history: Altered mental status improved Discharge orders put in but waiting on authorization for SNF to take him back Hospitalist Physical - Physical exam Narrative exam: Gen:Not in acute distress, lying in bed HEENT:Normocephalic, atraumatic Neck:supple, no JVD Lungs:clear to auscultation, bilaterally, no wheeze Heart:S1 and S2 reg, no murmurs, rubs or gallop Abd:Soft, non tender, non distended, normal bowel sounds Ext:No edema. no clubbing, no cyanosis Neuro:Awake,alert, confused - Constitutional Vitals: Temp Pulse Resp BP Pulse Ox 98.0 F 96 H 18 126/63 99 11/01/20 13:40 11/01/20 22:08 11/01/20 21:06 11/01/20 22:08 11/01/20 21:07 General appearance: Present: other Results - Labs CBC & Chem 7: 11/01/20 04:39 10/31/20 05:23 Labs: Laboratory Last Values WBC 7.6 K/mm3 (4.5-11.0) 11/01/20 04:39 RBC 3.19 M/mm3 (3.65-5.03) L 11/01/20 04:39 Hgb 11.4 gm/dl (11.8-15.2) L 11/01/20 04:39 Hct 34.5 % (35.5-45.6) L 11/01/20 04:39 MCV 108 fl (84-94) H 11/01/20 04:39 MCH 36 pg (28-32) H 11/01/20 04:39 MCHC 33 % (32-34) 11/01/20 04:39 RDW 16.3 % (13.2-15.2) H 11/01/20 04:39 Plt Count 133 K/mm3 (140-440) L 11/01/20 04:39 Lymph % (Auto) 12.6 % (13.4-35.0) L 10/31/20 05:23 [place] % (Auto) 12.1 % (0.0-7.3) H 10/31/20 05:23 Eos % (Auto) 0.5 % (0.0-4.3) 10/31/20 05:23 Baso % (Auto) 0.1 % (0.0-1.8) 10/31/20 05:23 Lymph # (Auto) 1.1 K/mm3 (1.2-5.4) L 10/31/20 05:23 [place] # (Auto) 1.0 K/mm3 (0.0-0.8) H 10/31/20 05:23 Eos # (Auto) 0.0 K/mm3 (0.0-0.4) 10/31/20 05:23 Baso # (Auto) 0.0 K/mm3 (0.0-0.1) 10/31/20 05:23 Seg Neutrophils % 74.7 % (40.0-70.0) H 10/31/20 05:23 Seg Neutrophils # 6.4 K/mm3 (1.8-7.7) 10/31/20 05:23 ABG pH 7.565 (7.320-7.450) H 10/28/20 20:28 POC ABG pCO2 33.1 mmHg (32.0-48.0) 10/28/20 20:28 POC ABG pO2 203.1 mmHg (83-108) H 10/28/20 20:28 POC ABG HCO3 29.3 10/28/20 20:28 ABG O2 Saturation 99.7 (0-100) 10/28/20 20:28 POC ABG Base Excess 7.2 10/28/20 20:28 ABG Hemoglobin 13.1 (12.0-17.5) 10/28/20 20:28 ABG Oxyhemoglobin 99.0 (94-98) H 10/28/20 20:28 ABG Methemoglobin 0.3 (0.0-1.5) 10/28/20 20:28 ABG Sodium 131.7 mmol/L (136.0-145.0) L 10/28/20 20:28 ABG Potassium 3.5 mmol/L (3.40-4.50) 10/28/20 20:28 ABG Chloride 95.0 mmol/L (98-107) L 10/28/20 20:28 ABG Glucose 114 mg/dL (65-95) H 10/28/20 20:28 Carboxyhemoglobin 0.4 (0.5-1.5) L 10/28/20 20:28 FiO2 % 50 10/28/20 20:28 Sodium 137 mmol/L (137-145) 10/31/20 05:23 Potassium 3.8 mmol/L (3.6-5.0) 10/31/20 05:23 Chloride 101.2 mmol/L (98-107) 10/31/20 05:23 Carbon Dioxide 27 mmol/L (22-30) 10/31/20 05:23 Anion Gap 13 mmol/L 10/31/20 05:23 BUN 24 mg/dL (9-20) H 10/31/20 05:23 Creatinine 6.1 mg/dL (0.8-1.3) H 10/31/20 05:23 Estimated GFR 11 ml/min 10/31/20 05:23 BUN/Creatinine Ratio 4 % 10/31/20 05:23 Glucose 115 mg/dL (75-100) H 10/31/20 05:23 POC Glucose 103 mg/dL (70-105) 11/01/20 21:58 Lactic Acid 1.70 mmol/L (0.7-2.0) 10/28/20 23:35 Calcium 9.8 mg/dL (8.4-10.2) 10/31/20 05:23 Total Bilirubin 0.40 mg/dL (0.1-1.2) 10/28/20 20:27 AST 13 units/L (5-40) 10/28/20 20:27 ALT 10 units/L (7-56) 10/28/20 20:27 Alkaline Phosphatase 45 units/L (35-129) 10/28/20 20:27 Ammonia 13.0 umol/L (25-60) L 10/28/20 20:27 Total Protein 7.2 g/dL (6.3-8.2) 10/28/20 20:27 Albumin 3.3 g/dL (3.9-5) L 10/28/20 20:27 Albumin/Globulin Ratio 0.8 % 10/28/20 20:27 TSH 2.420 mlU/mL (0.270-4.200) 10/28/20 20:27 Arterial Blood Glucose 114 mg/dL (65-95) H 10/28/20 20:28 Arterial Blood Ionized Calcium 4.4 mg/dL (4.6-5.3) L 10/28/20 20:28 Plasma/Serum Alcohol < 0.01 % (0-0.07) 10/28/20 20:27 Coronavirus (PCR) Negative (Negative) 10/31/20 14:42 Hepatitis A IgM Ab Non-reactive (NonReactive) 10/29/20 08:48 Hep Bs Antigen Nonreactive (Negative) 10/29/20 08:48 Hep B Core IgM Ab Non-reactive (NonReactive) 10/29/20 08:48 Hepatitis C Antibody Non-reactive (NonReactive) 10/29/20 08:48 David/IV: Voiding Method Condom Catheter Active Medications - Current Medications Current Medications: Generic Name Dose Route Start Last Admin Trade Name Freq PRN Reason Stop Dose Admin Acetaminophen 650 mg 10/28/20 22:36 Acetaminophen 325 Mg Tab PO Q4H PRN Pain MILD(1-3)/Fever >100.5/RUIZ Albuterol 2.5 mg 10/28/20 22:36 Albuterol 2.5 Mg/3 Ml Nebu IH Q4HRT PRN Shortness Of Breath Albuterol/Ipratropium 1 ampul 10/31/20 20:00 11/01/20 21:05 Ipratropium/Albuterol Sulfate 3 Ml Ampul.Neb IH 1 ampul BIDRT BECKIE Administration Amlodipine Besylate 5 mg 10/29/20 10:00 11/01/20 15:29 Amlodipine 5 Mg Tab PO 5 mg QDAY BECKIE Administration Apixaban 5 mg 10/29/20 10:00 11/01/20 22:09 Apixaban 5 Mg Tab PO 5 mg Q12HR BECKIE Administration Dextrose 50 ml 10/28/20 22:36 10/31/20 22:07 Dextrose 50% In Water (25gm) 50 Ml Syringe IV 50 ml Q30MIN PRN Administration Hypoglycemia Protocol Famotidine 20 mg 11/01/20 10:00 11/01/20 10:04 Famotidine 20 Mg Tab PO Not Given DAILY BECKIE Ceftriaxone Sodium 1 gm in 50 mls @ 100 mls/hr 10/28/20 23:00 11/01/20 22:09 Rocephin/Ns 1 Gm/50 Ml IV 11/01/20 23:29 100 mls/hr Q24H BECKIE Administration Protocol Dextrose/Sodium Chloride 1,000 mls @ 50 mls/hr 10/29/20 10:00 11/01/20 19:51 D5ns IV 75 mls/hr DIRECT BECKIE Administration Sodium Chloride 100 mls @ 999 mls/hr 10/30/20 11:00 Nacl 0.9% IV NINO PRN Hypotension Insulin Human Lispro 0 unit 10/29/20 07:30 11/01/20 22:10 Insulin Lispro 100 Unit/Ml SUB-Q Not Given ACHS BECKIE Protocol Megestrol Acetate 400 mg 10/29/20 10:00 11/01/20 15:28 Megestrol 400 Mg/10 Ml Oral Liqd PO 400 mg QDAY BECKIE Administration Metoprolol Tartrate 25 mg 10/29/20 10:00 11/01/20 22:08 Metoprolol Tartrate 25 Mg Tab PO 25 mg BID BECKIE Administration Ondansetron HCl 4 mg 10/28/20 22:36 Ondansetron 4 Mg/2 Ml Inj IV Q8H PRN Nausea And Vomiting Polyethylene Glycol 17 gm 10/28/20 22:40 Polyethylene Glycol 3350 17 Gm Powder PO QDAY PRN Constipation Sodium Chloride 10 ml 10/29/20 10:00 11/01/20 22:09 Sodium Chloride 0.9% 10 Ml Flush Syringe IV 10 ml BID BECKIE Administration Sodium Chloride 10 ml 10/28/20 22:36 Sodium Chloride 0.9% 10 Ml Flush Syringe IV PRN PRN LINE FLUSH Nutrition/Malnutrition Assess - Dietary Evaluation Nutrition/Malnutrition Findings: Nutrition Notes Start: 10/29/20 07:49 Freq: Status: Active Protocol: Document 10/31/20 14:13 (Rec: 10/31/20 14:18 [id number]) Nutrition Notes Initial or Follow up Assessment Current Diagnosis CKD (stage V CKD),Diabetes, Heart Failure,Stroke Other Pertinent Diagnosis dementia Current Diet Pureed Labs/Tests BUN 24 Cr 6.1 POC BG 55-115 Pertinent Medications Reviewed Height 6 ft Weight 72 kg [place] Body Weight (kg) 80.90 BMI 21.5 Weight Status Underweight Subjective/Other Information F/u for MST and diet education . Pt not appropriate for diet education due to dementia. Pt did not wake at time of visit. Pt ate 0% of breakfast. Burn Absent Trauma Absent Current % PO Negligible Minimum of two criteria No physical signs of malnutrition #1 Nutrition Diagnosis Inadequate oral intake Etiology dementia As Evidenced by Signs and Symptoms pt not eating Is patient on ventilator? No Is Patient Ambulatory and/or Out of Bed No REE-([facility]-confined to bed) 6280.076 Additional Notes Protein: (>1.2g/kg) >86g Fluid: 1 ml/kcal or per MD Nutrition Intervention Change Diet Order: continue Add Supplement/Snack (indicate name/kcal Nepro BID /protein ) Provides kCal: 850 Provides Protein (gm) 38 Goal #1 Meet at least 75% of energy and protein needs via PO and ONS Anticipated Discharge Needs: puremilan, renal Follow-Up By: 11/04/20 Additional Comments FU for intakes and ONS tolerance
[2020-11-02] MEDS: INSULIN LISPRO 100 UNIT/ML SUB-Q SCH ×5 (08:15→22:06)
[2020-11-02] MEDS: METOPROLOL TARTRATE 25 MG TAB PO SCH ×2 (09:29→22:06)
[2020-11-02] MEDS: MEGESTROL 400 MG/10 ML ORAL LIQD PO SCH (09:29)
[2020-11-02] MEDS: amLODIPine 5 MG TAB PO SCH (09:29)
[2020-11-02] MEDS: APIXABAN 5 MG TAB PO SCH ×2 (09:29→22:06)
[2020-11-02] MEDS: FAMOTIDINE 20 MG TAB PO SCH (09:29)
[2020-11-02] MEDS: IPRATROPIUM/ALBUTEROL SULFATE 3 ML AMPUL.NEB IH SCH ×2 (09:37→22:00)
--- NOTE | 2020-11-02 11:30 | Progress Note ---
Assessment and Plan Assessment and plan: -- Acute metabolic encephalopathy most likely secondary to dementia, chronic kidney disease and hypoxia. CT head w/o any acute infract supportive care, monitor clinically --Acute Hypoxic Respiratory failure s/p bipap. likely due to volume overload from ESRD negative for COVID DuoNeb by nebulizer every 4 hours. Albuterol via nebulizer every 4 hours as needed. consulted nephrology for dialysis We will monitor the patient closely -- ESRD on dialysis Avoid nephrotoxic drug. Renally dose medication. consulted nephrology for dialysis -- Acute diastolic (congestive) heart failure Stable. We will continue the home medication. Outpatient follow-up with cardiology -- Vascular dementia supportive care. Outpatient follow-up with neurology -- Transient hypotension Resolved. Blood pressure is now 128/87. We will monitor the blood pressure closely. We continue the home medication -- DM2 (diabetes mellitus, type 2) We will put the patient on 1800 kcal ADA pureed diet. Humalog sliding scale Accu-Chek before meals and at bedtime with moderate dose coverage. Diabetic education --CVA, old cont eliquis, statin, follow up outpt with neurology -- DVT prophylaxis: Eliquis 5 mg p.o. twice daily for DVT prophylaxis. Pepcid 20 mg IV twice daily for GI prophylaxis. Patient is a full code Daily clinical course: 10/29: We will rule out for COVID-19, test ordered, pt on bipap, nephro consulted for HD, follow clinically 10/30: s/p HD today, pt on RA, very confused, ordered PT/ST 10/31 Patient with acute metabolic encephalopathy, acute resp failure, ESRD on dialysis. He is still confused. Ammonia level not elevated. 11/01/20 Patient with dementia, acute metabolic encephalopathy. he is improved, close to baseline. He is stable to discharge back to SNF. Discharge orders put in but waiting on authorization for SNF to take him back. 11/02/20 Patient with dementia, acute metabolic encephalopathy. he is improved, close to baseline. He is stable to discharge back to SNF. Discharge orders put in yesterday but he did not go. Waiting on authorization for SNF to take him back. History Interval history: Altered mental status improved Discharge orders put in yesterday 11/01 but waiting on authorization for SNF to take him back Hospitalist Physical - Physical exam Narrative exam: Gen:Not in acute distress, lying in bed HEENT:Normocephalic, atraumatic Neck:supple, no JVD Lungs:clear to auscultation, bilaterally, no wheeze Heart:S1 and S2 reg, no murmurs, rubs or gallop Abd:Soft, non tender, non distended, normal bowel sounds Ext:No edema. no clubbing, no cyanosis Neuro:Awake,alert, confused - Constitutional Vitals: Temp Pulse Resp BP Pulse Ox 98.7 F 109 H 18 149/81 98 11/02/20 08:51 11/02/20 10:00 11/02/20 10:00 11/02/20 08:51 11/02/20 10:00 General appearance: Present: other Results - Labs CBC & Chem 7: 11/01/20 04:39 10/31/20 05:23 Labs: Laboratory Last Values WBC 7.6 K/mm3 (4.5-11.0) 11/01/20 04:39 RBC 3.19 M/mm3 (3.65-5.03) L 11/01/20 04:39 Hgb 11.4 gm/dl (11.8-15.2) L 11/01/20 04:39 Hct 34.5 % (35.5-45.6) L 11/01/20 04:39 MCV 108 fl (84-94) H 11/01/20 04:39 MCH 36 pg (28-32) H 11/01/20 04:39 MCHC 33 % (32-34) 11/01/20 04:39 RDW 16.3 % (13.2-15.2) H 11/01/20 04:39 Plt Count 133 K/mm3 (140-440) L 11/01/20 04:39 Lymph % (Auto) 12.6 % (13.4-35.0) L 10/31/20 05:23 [place] % (Auto) 12.1 % (0.0-7.3) H 10/31/20 05:23 Eos % (Auto) 0.5 % (0.0-4.3) 10/31/20 05:23 Baso % (Auto) 0.1 % (0.0-1.8) 10/31/20 05:23 Lymph # (Auto) 1.1 K/mm3 (1.2-5.4) L 10/31/20 05:23 [place] # (Auto) 1.0 K/mm3 (0.0-0.8) H 10/31/20 05:23 Eos # (Auto) 0.0 K/mm3 (0.0-0.4) 10/31/20 05:23 Baso # (Auto) 0.0 K/mm3 (0.0-0.1) 10/31/20 05:23 Seg Neutrophils % 74.7 % (40.0-70.0) H 10/31/20 05:23 Seg Neutrophils # 6.4 K/mm3 (1.8-7.7) 10/31/20 05:23 ABG pH 7.565 (7.320-7.450) H 10/28/20 20:28 POC ABG pCO2 33.1 mmHg (32.0-48.0) 10/28/20 20:28 POC ABG pO2 203.1 mmHg (83-108) H 10/28/20 20:28 POC ABG HCO3 29.3 10/28/20 20:28 ABG O2 Saturation 99.7 (0-100) 10/28/20 20:28 POC ABG Base Excess 7.2 10/28/20 20:28 ABG Hemoglobin 13.1 (12.0-17.5) 10/28/20 20:28 ABG Oxyhemoglobin 99.0 (94-98) H 10/28/20 20:28 ABG Methemoglobin 0.3 (0.0-1.5) 10/28/20 20:28 ABG Sodium 131.7 mmol/L (136.0-145.0) L 10/28/20 20:28 ABG Potassium 3.5 mmol/L (3.40-4.50) 10/28/20 20:28 ABG Chloride 95.0 mmol/L (98-107) L 10/28/20 20:28 ABG Glucose 114 mg/dL (65-95) H 10/28/20 20:28 Carboxyhemoglobin 0.4 (0.5-1.5) L 10/28/20 20:28 FiO2 % 50 10/28/20 20:28 Sodium 137 mmol/L (137-145) 10/31/20 05:23 Potassium 3.8 mmol/L (3.6-5.0) 10/31/20 05:23 Chloride 101.2 mmol/L (98-107) 10/31/20 05:23 Carbon Dioxide 27 mmol/L (22-30) 10/31/20 05:23 Anion Gap 13 mmol/L 10/31/20 05:23 BUN 24 mg/dL (9-20) H 10/31/20 05:23 Creatinine 6.1 mg/dL (0.8-1.3) H 10/31/20 05:23 Estimated GFR 11 ml/min 10/31/20 05:23 BUN/Creatinine Ratio 4 % 10/31/20 05:23 Glucose 115 mg/dL (75-100) H 10/31/20 05:23 POC Glucose 49 mg/dL (70-105) L 11/02/20 08:52 Lactic Acid 1.70 mmol/L (0.7-2.0) 10/28/20 23:35 Calcium 9.8 mg/dL (8.4-10.2) 10/31/20 05:23 Total Bilirubin 0.40 mg/dL (0.1-1.2) 10/28/20 20:27 AST 13 units/L (5-40) 10/28/20 20:27 ALT 10 units/L (7-56) 10/28/20 20:27 Alkaline Phosphatase 45 units/L (35-129) 10/28/20 20:27 Ammonia 13.0 umol/L (25-60) L 10/28/20 20:27 Total Protein 7.2 g/dL (6.3-8.2) 10/28/20 20:27 Albumin 3.3 g/dL (3.9-5) L 10/28/20 20:27 Albumin/Globulin Ratio 0.8 % 10/28/20 20:27 TSH 2.420 mlU/mL (0.270-4.200) 10/28/20 20:27 Arterial Blood Glucose 114 mg/dL (65-95) H 10/28/20 20:28 Arterial Blood Ionized Calcium 4.4 mg/dL (4.6-5.3) L 10/28/20 20:28 Plasma/Serum Alcohol < 0.01 % (0-0.07) 10/28/20 20:27 Coronavirus (PCR) Negative (Negative) 10/31/20 14:42 Hepatitis A IgM Ab Non-reactive (NonReactive) 10/29/20 08:48 Hep Bs Antigen Nonreactive (Negative) 10/29/20 08:48 Hep B Core IgM Ab Non-reactive (NonReactive) 10/29/20 08:48 Hepatitis C Antibody Non-reactive (NonReactive) 10/29/20 08:48 David/IV: Voiding Method Condom Catheter Active Medications - Current Medications Current Medications: Generic Name Dose Route Start Last Admin Trade Name Freq PRN Reason Stop Dose Admin Acetaminophen 650 mg 10/28/20 22:36 Acetaminophen 325 Mg Tab PO Q4H PRN Pain MILD(1-3)/Fever >100.5/RUIZ Albuterol 2.5 mg 10/28/20 22:36 Albuterol 2.5 Mg/3 Ml Nebu IH Q4HRT PRN Shortness Of Breath Albuterol/Ipratropium 1 ampul 10/31/20 20:00 11/02/20 09:37 Ipratropium/Albuterol Sulfate 3 Ml Ampul.Neb IH 1 ampul BIDRT BECKIE Administration Amlodipine Besylate 5 mg 10/29/20 10:00 11/02/20 09:29 Amlodipine 5 Mg Tab PO 5 mg QDAY BECKIE Administration Apixaban 5 mg 10/29/20 10:00 11/02/20 09:29 Apixaban 5 Mg Tab PO 5 mg Q12HR BECKIE Administration Dextrose 50 ml 10/28/20 22:36 10/31/20 22:07 Dextrose 50% In Water (25gm) 50 Ml Syringe IV 50 ml Q30MIN PRN Administration Hypoglycemia Protocol Famotidine 20 mg 11/01/20 10:00 11/02/20 09:29 Famotidine 20 Mg Tab PO 20 mg DAILY BECKIE Administration Dextrose/Sodium Chloride 1,000 mls @ 50 mls/hr 10/29/20 10:00 11/01/20 19:51 D5ns IV 75 mls/hr DIRECT BECKIE Administration Sodium Chloride 100 mls @ 999 mls/hr 10/30/20 11:00 Nacl 0.9% IV NINO PRN Hypotension Insulin Human Lispro 0 unit 10/29/20 07:30 11/02/20 09:30 Insulin Lispro 100 Unit/Ml SUB-Q Not Given ACHS BECKIE Protocol Megestrol Acetate 400 mg 10/29/20 10:00 11/02/20 09:29 Megestrol 400 Mg/10 Ml Oral Liqd PO 400 mg QDAY BECKIE Administration Metoprolol Tartrate 25 mg 10/29/20 10:00 11/02/20 09:29 Metoprolol Tartrate 25 Mg Tab PO 25 mg BID BECKIE Administration Ondansetron HCl 4 mg 10/28/20 22:36 Ondansetron 4 Mg/2 Ml Inj IV Q8H PRN Nausea And Vomiting Polyethylene Glycol 17 gm 10/28/20 22:40 Polyethylene Glycol 3350 17 Gm Powder PO QDAY PRN Constipation Sodium Chloride 10 ml 10/29/20 10:00 11/02/20 09:30 Sodium Chloride 0.9% 10 Ml Flush Syringe IV 10 ml BID BECKIE Administration Sodium Chloride 10 ml 10/28/20 22:36 Sodium Chloride 0.9% 10 Ml Flush Syringe IV PRN PRN LINE FLUSH Nutrition/Malnutrition Assess - Dietary Evaluation Nutrition/Malnutrition Findings: Nutrition Notes Start: 10/29/20 07:49 Freq: Status: Active Protocol: Document 10/31/20 14:13 (Rec: 10/31/20 14:18 [id number]) Nutrition Notes Initial or Follow up Assessment Current Diagnosis CKD (stage V CKD),Diabetes, Heart Failure,Stroke Other Pertinent Diagnosis dementia Current Diet Pureed Labs/Tests BUN 24 Cr 6.1 POC BG 55-115 Pertinent Medications Reviewed Height 6 ft Weight 72 kg [place] Body Weight (kg) 80.90 BMI 21.5 Weight Status Underweight Subjective/Other Information F/u for MST and diet education . Pt not appropriate for diet education due to dementia. Pt did not wake at time of visit. Pt ate 0% of breakfast. Burn Absent Trauma Absent Current % PO Negligible Minimum of two criteria No physical signs of malnutrition #1 Nutrition Diagnosis Inadequate oral intake Etiology dementia As Evidenced by Signs and Symptoms pt not eating Is patient on ventilator? No Is Patient Ambulatory and/or Out of Bed No REE-([facility]-confined to bed) [phone] Additional Notes Protein: (>1.2g/kg) >86g Fluid: 1 ml/kcal or per MD Nutrition Intervention Change Diet Order: continue Add Supplement/Snack (indicate name/kcal Nepro BID /protein ) Provides kCal: 850 Provides Protein (gm) 38 Goal #1 Meet at least 75% of energy and protein needs via PO and ONS Anticipated Discharge Needs: pureed, renal Follow-Up By: 11/04/20 Additional Comments FU for intakes and ONS tolerance
--- NOTE | 2020-11-02 12:18 | Progress Note ---
Assessment and Plan - Patient Problems (1) ESRD on dialysis Current Visit: Yes Status: Chronic Plan to address problem: Maintain on inpatient MWF HD schedule. From renal standpoint he is stable for DC to SNF. 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 disease or end stage renal disease Current Visit: Yes Status: Chronic Plan to address problem: Monitor blood pressures under current regimen. (3) Anemia in chronic illness Current Visit: No Status: Chronic Plan to address problem: Based on most recent H/H levels, no acute indications for BRIDGET therapy. Will monitor. (4) Acute encephalopathy Current Visit: Yes Status: Acute Plan to address problem: Likely as a consequence of worsening dementia. Seems to be at new baseline at this point. (5) Pulmonary edema Current Visit: No Status: Acute Plan to address problem: Improved with HD. Subjective Date of service: 11/02/20 Principal diagnosis: ESRD Interval history: No acute changes, pending D/C to SNF today. Objective - Vital Signs Vital signs: Vital Signs - 12hr 11/02/20 11/02/20 11/02/20 06:00 06:09 08:51 Temperature 98.2 F 98.7 F Pulse Rate 114 H 94 H 88 Pulse Rate [ Anterior] Pulse Rate [ Bilateral Throughout] Pulse Rate [ From Monitor] Respiratory 18 18 Rate Respiratory Rate [Anterior] Respiratory Rate [Bilateral Throughout] Blood Pressure 149/81 Blood Pressure 148/80 [Right] O2 Sat by Pulse 96 Oximetry 11/02/20 11/02/20 09:38 10:00 Temperature Pulse Rate Pulse Rate [ 116 H Anterior] Pulse Rate [ 121 H Bilateral Throughout] Pulse Rate [ 109 H From Monitor] Respiratory 18 Rate Respiratory 16 Rate [Anterior] Respiratory 16 Rate [Bilateral Throughout] Blood Pressure Blood Pressure [Right] O2 Sat by Pulse 98 Oximetry - General Appearance General appearance: appears stated age, chronically ill EENT: ATNC Neck: no JVD Respiratory: Present: Clear to Ascultation Cardiology: regular Gastrointestinal: normal Integumentary: warm and dry Musculoskeletal: deferred Psychiatric: cooperative - Lab 11/01/20 04:39 10/31/20 05:23 Most recent lab results ABG pH 7.565 (7.320-7.450) H 10/28/20 20:28 ABG O2 Saturation 99.7 (0-100) 10/28/20 20:28 Calcium 9.8 mg/dL (8.4-10.2) 10/31/20 05:23 - Allied health notes Allied health notes reviewed: nursing Medications & Allergies - Medications Allergies/Adverse Reactions: Allergies No Known Allergies Allergy (Verified 09/28/20 20:06) Home Medications: Home Medications Medication Instructions Recorded Confirmed Last Taken Type Epoetin Blayne 10,000 Unit [Procrit] 10,000 unit IV NINO PRN #1 vial 12/02/18 02/05/20 11/20/19 10:00 Rx polyethylene glycoL 3350 [Miralax 17 gm PO QDAY PRN #30 powd.pack 11/22/19 02/05/20 Unknown Rx 3350] Famotidine [Pepcid] 10 mg PO BID #60 tablet 09/20/20 Unknown Rx amLODIPine 5 mg PO QDAY #30 tablet 09/20/20 Unknown Rx Apixaban [Eliquis] 5 mg PO Q12HR tablet 10/08/20 Unknown Rx Metoprolol [Lopressor TAB] 25 mg PO BID tablet 10/08/20 Unknown Rx megestroL [Megestrol] 400 mg PO QDAY oral.liqd 10/08/20 Unknown Rx Active Medications: Generic Name Dose Route Start Last Admin Trade Name Freq PRN Reason Stop Dose Admin Acetaminophen 650 mg 10/28/20 22:36 Acetaminophen 325 Mg Tab PO Q4H PRN Pain MILD(1-3)/Fever >100.5/RUIZ Albuterol 2.5 mg 10/28/20 22:36 Albuterol 2.5 Mg/3 Ml Nebu IH Q4HRT PRN Shortness Of Breath Albuterol/Ipratropium 1 ampul 10/31/20 20:00 11/02/20 09:37 Ipratropium/Albuterol Sulfate 3 Ml Ampul.Neb IH 1 ampul BIDRT BECKIE Administration Amlodipine Besylate 5 mg 10/29/20 10:00 11/02/20 09:29 Amlodipine 5 Mg Tab PO 5 mg QDAY BECKIE Administration Apixaban 5 mg 10/29/20 10:00 11/02/20 09:29 Apixaban 5 Mg Tab PO 5 mg Q12HR BECKIE Administration Dextrose 50 ml 10/28/20 22:36 10/31/20 22:07 Dextrose 50% In Water (25gm) 50 Ml Syringe IV 50 ml Q30MIN PRN Administration Hypoglycemia Protocol Famotidine 20 mg 11/01/20 10:00 11/02/20 09:29 Famotidine 20 Mg Tab PO 20 mg DAILY BECKIE Administration Dextrose/Sodium Chloride 1,000 mls @ 50 mls/hr 10/29/20 10:00 11/01/20 19:51 D5ns IV 75 mls/hr DIRECT BECKIE Administration Sodium Chloride 100 mls @ 999 mls/hr 10/30/20 11:00 Nacl 0.9% IV NINO PRN Hypotension Insulin Human Lispro 0 unit 10/29/20 07:30 11/02/20 09:30 Insulin Lispro 100 Unit/Ml SUB-Q Not Given ACHS BECKIE Protocol Megestrol Acetate 400 mg 10/29/20 10:00 11/02/20 09:29 Megestrol 400 Mg/10 Ml Oral Liqd PO 400 mg QDAY BECKIE Administration Metoprolol Tartrate 25 mg 10/29/20 10:00 11/02/20 09:29 Metoprolol Tartrate 25 Mg Tab PO 25 mg BID BECKIE Administration Ondansetron HCl 4 mg 10/28/20 22:36 Ondansetron 4 Mg/2 Ml Inj IV Q8H PRN Nausea And Vomiting Polyethylene Glycol 17 gm 10/28/20 22:40 Polyethylene Glycol 3350 17 Gm Powder PO QDAY PRN Constipation Sodium Chloride 10 ml 10/29/20 10:00 11/02/20 09:30 Sodium Chloride 0.9% 10 Ml Flush Syringe IV 10 ml BID BECKIE Administration Sodium Chloride 10 ml 10/28/20 22:36 Sodium Chloride 0.9% 10 Ml Flush Syringe IV PRN PRN LINE FLUSH
[2020-11-02] MEDS: D5W/0.9% NACL 1,000 ML IV SCH (17:43)
[2020-11-03] MEDS: IPRATROPIUM/ALBUTEROL SULFATE 3 ML AMPUL.NEB IH SCH (08:29)
--- NOTE | 2020-11-03 09:19 | Progress Note ---
Assessment and Plan Assessment and plan: -- Acute metabolic encephalopathy most likely secondary to dementia, chronic kidney disease and hypoxia. CT head w/o any acute infract supportive care, monitor clinically --Acute Hypoxic Respiratory failure s/p bipap. likely due to volume overload from ESRD negative for COVID DuoNeb by nebulizer every 4 hours. Albuterol via nebulizer every 4 hours as needed. consulted nephrology for dialysis We will monitor the patient closely -- ESRD on dialysis Avoid nephrotoxic drug. Renally dose medication. consulted nephrology for dialysis -- Acute diastolic (congestive) heart failure Stable. We will continue the home medication. Outpatient follow-up with cardiology -- Vascular dementia supportive care. Outpatient follow-up with neurology -- Transient hypotension Resolved. Blood pressure is now 128/87. We will monitor the blood pressure closely. We continue the home medication -- DM2 (diabetes mellitus, type 2) We will put the patient on 1800 kcal ADA pureed diet. Humalog sliding scale Accu-Chek before meals and at bedtime with moderate dose coverage. Diabetic education --CVA, old cont eliquis, statin, follow up outpt with neurology -- DVT prophylaxis: Eliquis 5 mg p.o. twice daily for DVT prophylaxis. Pepcid 20 mg IV twice daily for GI prophylaxis. Patient is a full code Daily clinical course: 10/29: We will rule out for COVID-19, test ordered, pt on bipap, nephro consulted for HD, follow clinically 10/30: s/p HD today, pt on RA, very confused, ordered PT/ST 10/31 Patient with acute metabolic encephalopathy, acute resp failure, ESRD on dialysis. He is still confused. Ammonia level not elevated. 11/01/20 Patient with dementia, acute metabolic encephalopathy. he is improved, close to baseline. He is stable to discharge back to SNF. Discharge orders put in but waiting on authorization for SNF to take him back. 11/02/20 Patient with dementia, acute metabolic encephalopathy. he is improved, close to baseline. He is stable to discharge back to SNF. Discharge orders put in yesterday but he did not go. Waiting on authorization for SNF to take him back. 11/03/20 Patient with dementia, acute metabolic encephalopathy. He has improved and is now close to baseline. He is stable to discharge back to SNF. Discharge orders put in 11/01/20 but he did not go. Waiting on authorization for SNF to take him back. History Interval history: Altered mental status improved, close to baseline Discharge orders put in 11/01 but waiting on authorization for SNF to take him back Hospitalist Physical - Physical exam Narrative exam: Gen:Not in acute distress, lying in bed HEENT:Normocephalic, atraumatic Neck:supple, no JVD Lungs:clear to auscultation, bilaterally, no wheeze Heart:S1 and S2 reg, no murmurs, rubs or gallop Abd:Soft, non tender, non distended, normal bowel sounds Ext:No edema. no clubbing, no cyanosis Neuro:Awake,alert, confused - Constitutional Vitals: Temp Pulse Resp BP Pulse Ox 98.3 F 89 20 113/64 99 11/03/20 08:18 11/03/20 08:18 11/03/20 08:18 11/03/20 08:18 11/03/20 08:18 General appearance: Present: other Results - Labs CBC & Chem 7: 11/01/20 04:39 10/31/20 05:23 Labs: Laboratory Last Values WBC 7.6 K/mm3 (4.5-11.0) 11/01/20 04:39 RBC 3.19 M/mm3 (3.65-5.03) L 11/01/20 04:39 Hgb 11.4 gm/dl (11.8-15.2) L 11/01/20 04:39 Hct 34.5 % (35.5-45.6) L 11/01/20 04:39 MCV 108 fl (84-94) H 11/01/20 04:39 MCH 36 pg (28-32) H 11/01/20 04:39 MCHC 33 % (32-34) 11/01/20 04:39 RDW 16.3 % (13.2-15.2) H 11/01/20 04:39 Plt Count 133 K/mm3 (140-440) L 11/01/20 04:39 Lymph % (Auto) 12.6 % (13.4-35.0) L 10/31/20 05:23 [place] % (Auto) 12.1 % (0.0-7.3) H 10/31/20 05:23 Eos % (Auto) 0.5 % (0.0-4.3) 10/31/20 05:23 Baso % (Auto) 0.1 % (0.0-1.8) 10/31/20 05:23 Lymph # (Auto) 1.1 K/mm3 (1.2-5.4) L 10/31/20 05:23 [place] # (Auto) 1.0 K/mm3 (0.0-0.8) H 10/31/20 05:23 Eos # (Auto) 0.0 K/mm3 (0.0-0.4) 10/31/20 05:23 Baso # (Auto) 0.0 K/mm3 (0.0-0.1) 10/31/20 05:23 Seg Neutrophils % 74.7 % (40.0-70.0) H 10/31/20 05:23 Seg Neutrophils # 6.4 K/mm3 (1.8-7.7) 10/31/20 05:23 ABG pH 7.565 (7.320-7.450) H 10/28/20 20:28 POC ABG pCO2 33.1 mmHg (32.0-48.0) 10/28/20 20:28 POC ABG pO2 203.1 mmHg (83-108) H 10/28/20 20:28 POC ABG HCO3 29.3 10/28/20 20:28 ABG O2 Saturation 99.7 (0-100) 10/28/20 20:28 POC ABG Base Excess 7.2 10/28/20 20:28 ABG Hemoglobin 13.1 (12.0-17.5) 10/28/20 20:28 ABG Oxyhemoglobin 99.0 (94-98) H 10/28/20 20:28 ABG Methemoglobin 0.3 (0.0-1.5) 10/28/20 20:28 ABG Sodium 131.7 mmol/L (136.0-145.0) L 10/28/20 20:28 ABG Potassium 3.5 mmol/L (3.40-4.50) 10/28/20 20:28 ABG Chloride 95.0 mmol/L (98-107) L 10/28/20 20:28 ABG Glucose 114 mg/dL (65-95) H 10/28/20 20:28 Carboxyhemoglobin 0.4 (0.5-1.5) L 10/28/20 20:28 FiO2 % 50 10/28/20 20:28 Sodium 137 mmol/L (137-145) 10/31/20 05:23 Potassium 3.8 mmol/L (3.6-5.0) 10/31/20 05:23 Chloride 101.2 mmol/L (98-107) 10/31/20 05:23 Carbon Dioxide 27 mmol/L (22-30) 10/31/20 05:23 Anion Gap 13 mmol/L 10/31/20 05:23 BUN 24 mg/dL (9-20) H 10/31/20 05:23 Creatinine 6.1 mg/dL (0.8-1.3) H 10/31/20 05:23 Estimated GFR 11 ml/min 10/31/20 05:23 BUN/Creatinine Ratio 4 % 10/31/20 05:23 Glucose 115 mg/dL (75-100) H 10/31/20 05:23 POC Glucose 143 mg/dL (70-105) H 11/03/20 08:19 Lactic Acid 1.70 mmol/L (0.7-2.0) 10/28/20 23:35 Calcium 9.8 mg/dL (8.4-10.2) 10/31/20 05:23 Total Bilirubin 0.40 mg/dL (0.1-1.2) 10/28/20 20:27 AST 13 units/L (5-40) 10/28/20 20:27 ALT 10 units/L (7-56) 10/28/20 20:27 Alkaline Phosphatase 45 units/L (35-129) 10/28/20 20:27 Ammonia 13.0 umol/L (25-60) L 10/28/20 20:27 Total Protein 7.2 g/dL (6.3-8.2) 10/28/20 20:27 Albumin 3.3 g/dL (3.9-5) L 10/28/20 20:27 Albumin/Globulin Ratio 0.8 % 10/28/20 20:27 TSH 2.420 mlU/mL (0.270-4.200) 10/28/20 20:27 Arterial Blood Glucose 114 mg/dL (65-95) H 10/28/20 20:28 Arterial Blood Ionized Calcium 4.4 mg/dL (4.6-5.3) L 10/28/20 20:28 Plasma/Serum Alcohol < 0.01 % (0-0.07) 10/28/20 20:27 Coronavirus (PCR) Negative (Negative) 10/31/20 14:42 Hepatitis A IgM Ab Non-reactive (NonReactive) 10/29/20 08:48 Hep Bs Antigen Nonreactive (Negative) 10/29/20 08:48 Hep B Core IgM Ab Non-reactive (NonReactive) 10/29/20 08:48 Hepatitis C Antibody Non-reactive (NonReactive) 10/29/20 08:48 David/IV: Voiding Method Condom Catheter Active Medications - Current Medications Current Medications: Generic Name Dose Route Start Last Admin Trade Name Freq PRN Reason Stop Dose Admin Acetaminophen 650 mg 10/28/20 22:36 Acetaminophen 325 Mg Tab PO Q4H PRN Pain MILD(1-3)/Fever >100.5/RUIZ Albuterol 2.5 mg 10/28/20 22:36 Albuterol 2.5 Mg/3 Ml Nebu IH Q4HRT PRN Shortness Of Breath Amlodipine Besylate 5 mg 10/29/20 10:00 11/02/20 09:29 Amlodipine 5 Mg Tab PO 5 mg QDAY BECKIE Administration Apixaban 5 mg 10/29/20 10:00 11/02/20 22:06 Apixaban 5 Mg Tab PO 5 mg Q12HR BECKIE Administration Dextrose 50 ml 10/28/20 22:36 10/31/20 22:07 Dextrose 50% In Water (25gm) 50 Ml Syringe IV 50 ml Q30MIN PRN Administration Hypoglycemia Protocol Famotidine 20 mg 11/01/20 10:00 11/02/20 09:29 Famotidine 20 Mg Tab PO 20 mg DAILY BECKIE Administration Dextrose/Sodium Chloride 1,000 mls @ 50 mls/hr 10/29/20 10:00 11/02/20 17:43 D5ns IV 75 mls/hr DIRECT BECKIE Administration Sodium Chloride 100 mls @ 999 mls/hr 10/30/20 11:00 Nacl 0.9% IV NINO PRN Hypotension Insulin Human Lispro 0 unit 10/29/20 07:30 11/02/20 22:06 Insulin Lispro 100 Unit/Ml SUB-Q Not Given ACHS [facility] Protocol Megestrol Acetate 400 mg 10/29/20 10:00 11/02/20 09:29 Megestrol 400 Mg/10 Ml Oral Liqd PO 400 mg QDAY BECKIE Administration Metoprolol Tartrate 25 mg 10/29/20 10:00 11/02/20 22:06 Metoprolol Tartrate 25 Mg Tab PO 25 mg BID BECKIE Administration Ondansetron HCl 4 mg 10/28/20 22:36 Ondansetron 4 Mg/2 Ml Inj IV Q8H PRN Nausea And Vomiting Polyethylene Glycol 17 gm 10/28/20 22:40 Polyethylene Glycol 3350 17 Gm Powder PO QDAY PRN Constipation Sodium Chloride 10 ml 10/29/20 10:00 11/02/20 22:06 Sodium Chloride 0.9% 10 Ml Flush Syringe IV 10 ml BID BECKIE Administration Sodium Chloride 10 ml 10/28/20 22:36 Sodium Chloride 0.9% 10 Ml Flush Syringe IV PRN PRN LINE FLUSH Nutrition/Malnutrition Assess - Dietary Evaluation Nutrition/Malnutrition Findings: Nutrition Notes Start: 10/29/20 07:49 Freq: Status: Active Protocol: Document 10/31/20 14:13 (Rec: 10/31/20 14:18 [id number]) Nutrition Notes Initial or Follow up Assessment Current Diagnosis CKD (stage V CKD),Diabetes, Heart Failure,Stroke Other Pertinent Diagnosis dementia Current Diet Pureed Labs/Tests BUN 24 Cr 6.1 POC BG 55-115 Pertinent Medications Reviewed Height 6 ft Weight 72 kg [place] Body Weight (kg) 80.90 BMI 21.5 Weight Status Underweight Subjective/Other Information F/u for MST and diet education . Pt not appropriate for diet education due to dementia. Pt did not wake at time of visit. Pt ate 0% of breakfast. Burn Absent Trauma Absent Current % PO Negligible Minimum of two criteria No physical signs of malnutrition #1 Nutrition Diagnosis Inadequate oral intake Etiology dementia As Evidenced by Signs and Symptoms pt not eating Is patient on ventilator? No Is Patient Ambulatory and/or Out of Bed No REE-([facility]-confined to bed) 7869.288 Additional Notes Protein: (>1.2g/kg) >86g Fluid: 1 ml/kcal or per MD Nutrition Intervention Change Diet Order: continue Add Supplement/Snack (indicate name/kcal Nepro BID /protein ) Provides kCal: 850 Provides Protein (gm) 38 Goal #1 Meet at least 75% of energy and protein needs via PO and ONS Anticipated Discharge Needs: ashu, renal Follow-Up By: 11/04/20 Additional Comments FU for intakes and ONS tolerance
[2020-11-03] MEDS: INSULIN LISPRO 100 UNIT/ML SUB-Q SCH ×4 (10:09→21:09)
[2020-11-03] MEDS: amLODIPine 5 MG TAB PO SCH (10:10)
[2020-11-03] MEDS: FAMOTIDINE 20 MG TAB PO SCH (10:11)
[2020-11-03] MEDS: METOPROLOL TARTRATE 25 MG TAB PO SCH ×2 (10:11→21:08)
[2020-11-03] MEDS: APIXABAN 5 MG TAB PO SCH ×2 (10:11→21:09)
[2020-11-03] MEDS: MEGESTROL 400 MG/10 ML ORAL LIQD PO SCH (10:12)
--- NOTE | 2020-11-03 11:42 | Progress Note ---
Assessment and Plan - Patient Problems (1) ESRD on dialysis Current Visit: Yes Status: Chronic Plan to address problem: Maintain on inpatient MWF HD schedule. From renal standpoint he is stable for DC to SNF. 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 disease or end stage renal disease Current Visit: Yes Status: Chronic Plan to address problem: Monitor blood pressures under current regimen. (3) Anemia in chronic illness Current Visit: No Status: Chronic Plan to address problem: Based on most recent H/H levels, no acute indications for BRIDGET therapy. Will monitor. (4) Acute encephalopathy Current Visit: Yes Status: Acute Plan to address problem: Likely as a consequence of worsening dementia. Seems to be at new baseline at this point. (5) Pulmonary edema Current Visit: No Status: Acute Plan to address problem: Improved with HD. Subjective Date of service: 11/03/20 Principal diagnosis: ESRD Interval history: No acute changes overnight. Pending DC to SNF. Objective - Vital Signs Vital signs: Vital Signs - 12hr 11/03/20 11/03/20 11/03/20 00:14 05:03 06:00 Temperature 97.3 F L 97.5 F L Pulse Rate 98 H 85 90 Respiratory 18 20 Rate Blood Pressure 157/79 132/79 O2 Sat by Pulse 94 99 Oximetry 11/03/20 11/03/20 11/03/20 07:58 08:18 10:10 Temperature 98.3 F Pulse Rate 89 Respiratory 20 Rate Blood Pressure 113/64 113/64 O2 Sat by Pulse 98 99 Oximetry - General Appearance General appearance: appears stated age, chronically ill, frail EENT: ATNC Neck: no JVD Respiratory: Present: Clear to Ascultation Cardiology: regular Gastrointestinal: normal Integumentary: warm and dry Musculoskeletal: deferred Psychiatric: cooperative - Lab 11/01/20 04:39 10/31/20 05:23 Most recent lab results ABG pH 7.565 (7.320-7.450) H 10/28/20 20:28 ABG O2 Saturation 99.7 (0-100) 10/28/20 20:28 Calcium 9.8 mg/dL (8.4-10.2) 10/31/20 05:23 - Allied health notes Allied health notes reviewed: nursing Medications & Allergies - Medications Allergies/Adverse Reactions: Allergies No Known Allergies Allergy (Verified 09/28/20 20:06) Home Medications: Home Medications Medication Instructions Recorded Confirmed Last Taken Type Epoetin Blayne 10,000 Unit [Procrit] 10,000 unit IV NINO PRN #1 vial 12/02/18 02/05/20 11/20/19 10:00 Rx polyethylene glycoL 3350 [Miralax 17 gm PO QDAY PRN #30 powd.pack 11/22/19 02/05/20 Unknown Rx 3350] Famotidine [Pepcid] 10 mg PO BID #60 tablet 09/20/20 Unknown Rx amLODIPine 5 mg PO QDAY #30 tablet 09/20/20 Unknown Rx Apixaban [Eliquis] 5 mg PO Q12HR tablet 10/08/20 Unknown Rx Metoprolol [Lopressor TAB] 25 mg PO BID tablet 10/08/20 Unknown Rx megestroL [Megestrol] 400 mg PO QDAY oral.liqd 10/08/20 Unknown Rx Active Medications: Generic Name Dose Route Start Last Admin Trade Name Freq PRN Reason Stop Dose Admin Acetaminophen 650 mg 10/28/20 22:36 Acetaminophen 325 Mg Tab PO Q4H PRN Pain MILD(1-3)/Fever >100.5/RUIZ Albuterol 2.5 mg 10/28/20 22:36 Albuterol 2.5 Mg/3 Ml Nebu IH Q4HRT PRN Shortness Of Breath Amlodipine Besylate 5 mg 10/29/20 10:00 11/03/20 10:10 Amlodipine 5 Mg Tab PO Not Given QDAY BECKIE Apixaban 5 mg 10/29/20 10:00 11/03/20 10:11 Apixaban 5 Mg Tab PO 5 mg Q12HR BECKIE Administration Dextrose 50 ml 10/28/20 22:36 10/31/20 22:07 Dextrose 50% In Water (25gm) 50 Ml Syringe IV 50 ml Q30MIN PRN Administration Hypoglycemia Protocol Famotidine 20 mg 11/01/20 10:00 11/03/20 10:11 Famotidine 20 Mg Tab PO 20 mg DAILY BECKIE Administration Dextrose/Sodium Chloride 1,000 mls @ 50 mls/hr 10/29/20 10:00 11/02/20 17:43 D5ns IV 75 mls/hr DIRECT BECKIE Administration Sodium Chloride 100 mls @ 999 mls/hr 10/30/20 11:00 Nacl 0.9% IV NINO PRN Hypotension Insulin Human Lispro 0 unit 10/29/20 07:30 11/03/20 10:09 Insulin Lispro 100 Unit/Ml SUB-Q Not Given ACHS [facility] Protocol Megestrol Acetate 400 mg 10/29/20 10:00 11/03/20 10:12 Megestrol 400 Mg/10 Ml Oral Liqd PO 400 mg QDAY BECKIE Administration Metoprolol Tartrate 25 mg 10/29/20 10:00 11/03/20 10:11 Metoprolol Tartrate 25 Mg Tab PO 25 mg BID BECKIE Administration Ondansetron HCl 4 mg 10/28/20 22:36 Ondansetron 4 Mg/2 Ml Inj IV Q8H PRN Nausea And Vomiting Polyethylene Glycol 17 gm 10/28/20 22:40 Polyethylene Glycol 3350 17 Gm Powder PO QDAY PRN Constipation Sodium Chloride 10 ml 10/29/20 10:00 11/03/20 10:12 Sodium Chloride 0.9% 10 Ml Flush Syringe IV 10 ml BID BECKIE Administration Sodium Chloride 10 ml 10/28/20 22:36 Sodium Chloride 0.9% 10 Ml Flush Syringe IV PRN PRN LINE FLUSH
--- NOTE | 2020-11-03 12:04 | Event Note ---
Date: 11/03/20 Called by Nurse that patient has runs of vtac, camryny. He is asymptomatic. Will get BMP, Mg, Phos. EKG, consult Cardiology.
[2020-11-03] MEDS: AMIODARONE 200 MG TAB PO SCH ×2 (13:14→21:08)
[2020-11-03 13:58] LABS: Calcium 9.9 mg/dL (8.4-10.2)
--- NOTE | 2020-11-03 17:31 | Consultation ---
History of Present Illness Consult date: 11/03/20 Requesting physician: EDITA CROWDER Consult reason: arrhythmia History of present illness: The patient was initially admitted on October 28, 2020. He was brought to the hospital from the dialysis center with lethargy, hypoxia, and hypotension after dialysis. CXR suggested HF. According to his nurse, the patient is int ermittently confused. Cardiology consult was requested today due to frequent runs of nonsustained ventricular tachycardia. His admission ECG showed normal sinus rhythm. However, he is currently in atrial fibrillation with mildly rapid ventricular response. In addition, for most of the day, he has been demonstrating frequent brief runs of nonsustained ventricular tachycardia. The patient is currently confused and is unable to give an adequate history. However, he denies chest pain, dizziness, palpitations or dizziness. His responses are of questionable reliability. Potassium and magnesium levels drawn today are normal. Notably, he has a history of dementia and PAF. Echocardiogram performed in June 2020 revealed an ejection fraction of 40 45% with severe LVH, moderate aortic stenosis, severe tricuspid regurgitation and mild aortic regurgitation. Past History Past Medical History: atrial fib, diabetes, ESRD, heart failure, hypertension, stroke, other (Dementia, , CMP.) Past Surgical History: Other (AV fistula) Social history: other (former smoker) Family history: no significant family history Medications and Allergies Allergies Allergy/AdvReac Type Severity Reaction Status Date / Time No Known Allergies Allergy Verified 09/28/20 20:06 Home Medications Medication Instructions Recorded Confirmed Last Taken Type Epoetin Blayne 10,000 Unit [Procrit] 10,000 unit IV NINO PRN #1 vial 12/02/18 02/05/20 11/20/19 10:00 Rx polyethylene glycoL 3350 [Miralax 17 gm PO QDAY PRN #30 powd.pack 11/22/19 02/05/20 Unknown Rx 3350] Famotidine [Pepcid] 10 mg PO BID #60 tablet 09/20/20 Unknown Rx amLODIPine 5 mg PO QDAY #30 tablet 09/20/20 Unknown Rx Apixaban [Eliquis] 5 mg PO Q12HR tablet 10/08/20 Unknown Rx Metoprolol [Lopressor TAB] 25 mg PO BID tablet 10/08/20 Unknown Rx megestroL [Megestrol] 400 mg PO QDAY oral.liqd 10/08/20 Unknown Rx Active Meds: Active Medications Acetaminophen (Acetaminophen 325 Mg Tab) 650 mg PO Q4H PRN PRN Reason: Pain MILD(1-3)/Fever >100.5/RUIZ Albuterol (Albuterol 2.5 Mg/3 Ml Nebu) 2.5 mg IH Q4HRT PRN PRN Reason: Shortness Of Breath Amiodarone HCl (Amiodarone 200 Mg Tab) 400 mg PO TID [facility] Last Admin: 11/03/20 13:14 Dose: 400 mg Documented by: Amlodipine Besylate (Amlodipine 5 Mg Tab) 5 mg PO QDAY [facility] Last Admin: 11/03/20 10:10 Dose: Not Given Documented by: Apixaban (Apixaban 5 Mg Tab) 5 mg PO Q12HR [facility] Last Admin: 11/03/20 10:11 Dose: 5 mg Documented by: Dextrose (Dextrose 50% In Water (25gm) 50 Ml Syringe) 50 ml IV Q30MIN PRN; Protocol PRN Reason: Hypoglycemia Last Admin: 10/31/20 22:07 Dose: 50 ml Documented by: Famotidine (Famotidine 20 Mg Tab) 20 mg PO DAILY [facility] Last Admin: 11/03/20 10:11 Dose: 20 mg Documented by: Dextrose/Sodium Chloride (D5ns) 1,000 mls @ 50 mls/hr IV DIRECT [facility] Last Infusion: 11/03/20 12:01 Dose: Infused Documented by: Sodium Chloride (Nacl 0.9%) 100 mls @ 999 mls/hr IV NINO PRN PRN Reason: Hypotension Insulin Human Lispro (Insulin Lispro 100 Unit/Ml) 0 unit SUB-Q ACHS [facility]; Protocol Last Admin: 11/03/20 16:58 Dose: Not Given Documented by: Megestrol Acetate (Megestrol 400 Mg/10 Ml Oral Liqd) 400 mg PO QDAY [facility] Last Admin: 11/03/20 10:12 Dose: 400 mg Documented by: Metoprolol Tartrate (Metoprolol Tartrate 25 Mg Tab) 25 mg PO BID [facility] Last Admin: 11/03/20 10:11 Dose: 25 mg Documented by: Ondansetron HCl (Ondansetron 4 Mg/2 Ml Inj) 4 mg IV Q8H PRN PRN Reason: Nausea And Vomiting Polyethylene Glycol (Polyethylene Glycol 3350 17 Gm Powder) 17 gm PO QDAY PRN PRN Reason: Constipation Sodium Chloride (Sodium Chloride 0.9% 10 Ml Flush Syringe) 10 ml IV BID BECKIE Last Admin: 11/03/20 10:12 Dose: 10 ml Documented by: Sodium Chloride (Sodium Chloride 0.9% 10 Ml Flush Syringe) 10 ml IV PRN PRN PRN Reason: LINE FLUSH Review of Systems ROS unobtainable: due to mental status Physical Examination Vital Signs Last Vital Signs Temp 98.9 F 11/03/20 15:18 Pulse 116 H 11/03/20 15:18 Resp 20 11/03/20 15:18 BP 105/52 11/03/20 15:18 Pulse Ox 100 11/03/20 15:18 General appearance: no acute distress HEENT: Positive: EOMI, Normocephaly, Mucus Membranes Moist Neck: Positive: neck supple, trachea midline Cardiac: Positive: irregularly irregular, S1/S2, Systolic Murmur (grade 2/6) Lungs: Positive: clear to auscultation Neuro: Positive: Other (confused.) Abdomen: Positive: Soft, Active Bowel Sounds. Negative: Tender Skin: Positive: Clear. Negative: Rash Musculoskeletal: Normal Range of Motion Extremities: Present: normal. Absent: edema Results 11/01/20 04:39 11/03/20 13:28 Comprehensive Metabolic Panel 11/03/20 Range/Units 13:28 Sodium 134 L (137-145) mmol/L Potassium 3.7 (3.6-5.0) mmol/L Chloride 97.2 L (98-107) mmol/L Carbon Dioxide 26 (22-30) mmol/L BUN 44 H (9-20) mg/dL Creatinine 5.9 H (0.8-1.3) mg/dL Glucose 160 H (75-100) mg/dL Calcium 9.9 (8.4-10.2) mg/dL - Imaging and Cardiology EKG: image reviewed EKG interpretations - Telemetry EKG Rhythm: Atrial Fibrillation (with brief runs of NSVT) - EKG Sinus rhythms and dysrhythmias: sinus rhythm Repolarization changes or abnormalities: repolarization abn secondary to ventricular hypertrophy Myocardial infarction: septal RI (old age or ind Assessment and Plan Discontinue amlodipine and increase metoprolol dose. Initiate amiodarone 400 mg TID. After adequate control of arrhythmias, the dose may be reduced ultimately to 200 mg BID or daily, depending on HR. The patient will also benefit from ischemia evaluation. However, the aggressiveness of evaluation and treatment will depend on his mental status amongst other considerations. - Patient Problems (1) NSVT (nonsustained ventricular tachycardia) Current Visit: Yes Status: Acute (2) Paroxysmal atrial fibrillation with RVR Current Visit: Yes Status: Acute (3) Acute HFrEF (heart failure with reduced ejection fraction) Current Visit: Yes Status: Acute (4) Moderate aortic stenosis Current Visit: Yes Status: Chronic (5) Hypertensive heart disease Current Visit: Yes Status: Chronic Qualifiers: Heart failure presence: with heart failure (6) Cardiomyopathy Current Visit: Yes Status: Chronic (7) Confusion Current Visit: Yes Status: Acute (8) ESRD (end stage renal disease) Current Visit: Yes Status: Chronic (9) DM2 (diabetes mellitus, type 2) Current Visit: Yes Status: Chronic (10) Severe tricuspid regurgitation Current Visit: Yes Status: Chronic (11) Hypertension Current Visit: No Status: Chronic Qualifiers: Hypertension type: primary hypertension Qualified Code(s): I10 - Essential (primary) hypertension
[2020-11-04] MEDS: METOPROLOL TARTRATE 25 MG TAB PO SCH ×4 (01:00→20:48)
[2020-11-04] MEDS: D5W/0.9% NACL 1,000 ML IV SCH (06:09)
--- NOTE | 2020-11-04 08:25 | Progress Note ---
Assessment and Plan Assessment and plan: -- Acute metabolic encephalopathy most likely secondary to dementia, chronic kidney disease and hypoxia. CT head w/o any acute infract supportive care, monitor clinically --Acute Hypoxic Respiratory failure s/p bipap. likely due to volume overload from ESRD negative for COVID DuoNeb by nebulizer every 4 hours. Albuterol via nebulizer every 4 hours as needed. consulted nephrology for dialysis We will monitor the patient closely -- ESRD on dialysis Avoid nephrotoxic drug. Renally dose medication. consulted nephrology for dialysis -- Acute diastolic (congestive) heart failure Stable. We will continue the home medication. Outpatient follow-up with cardiology -- Vascular dementia supportive care. Outpatient follow-up with neurology -- Transient hypotension Resolved. Blood pressure is now 128/87. We will monitor the blood pressure closely. We continue the home medication -- DM2 (diabetes mellitus, type 2) We will put the patient on 1800 kcal ADA pureed diet. Humalog sliding scale Accu-Chek before meals and at bedtime with moderate dose coverage. Diabetic education --CVA, old cont eliquis, statin, follow up outpt with neurology -- DVT prophylaxis: Eliquis 5 mg p.o. twice daily for DVT prophylaxis. Pepcid 20 mg IV twice daily for GI prophylaxis. Patient is a full code Daily clinical course: 10/29: We will rule out for COVID-19, test ordered, pt on bipap, nephro consulted for HD, follow clinically 10/30: s/p HD today, pt on RA, very confused, ordered PT/ST 10/31 Patient with acute metabolic encephalopathy, acute resp failure, ESRD on dialysis. He is still confused. Ammonia level not elevated. 11/01/20 Patient with dementia, acute metabolic encephalopathy. he is improved, close to baseline. He is stable to discharge back to SNF. Discharge orders put in but waiting on authorization for SNF to take him back. 11/02/20 Patient with dementia, acute metabolic encephalopathy. he is improved, close to baseline. He is stable to discharge back to SNF. Discharge orders put in yesterday but he did not go. Waiting on authorization for SNF to take him back. 11/03/20 Patient with dementia, acute metabolic encephalopathy. He has improved and is now close to baseline. He is stable to discharge back to SNF. Discharge orders put in 11/01/20 but he did not go. Waiting on authorization for SNF to take him back. 11/04/20 Patient with dementia, acute metabolic encephalopathy. He has improved and is now close to baseline. He wass stable to discharge back to SNF. Discharge orders put in 11/01/20 but he did not go, was waiting on authorization for SNF to take him back. However yesterday had multiple episodes of bigeminy, ventricular tachycardia runs. Phos an Mg were done, were normal. Cardiology was consulted. He was evaluated by Dr. Caceres and started him on Amiodarone and mentions possible ischemic workup. Therefore not stable for discharge until after cleared by Cardiology. History Interval history: Altered mental status improved, close to baseline Discharge orders put in 11/01 but waiting on authorization for SNF to take him back Had multiple episodes of bigeminy and Vtac yesterday Hospitalist Physical - Physical exam Narrative exam: Gen:Not in acute distress, lying in bed HEENT:Normocephalic, atraumatic Neck:supple, no JVD Lungs:clear to auscultation, bilaterally, no wheeze Heart:S1 and S2 reg, no murmurs, rubs or gallop Abd:Soft, non tender, non distended, normal bowel sounds Ext:No edema. no clubbing, no cyanosis Neuro:Awake,alert, confused - Constitutional Vitals: Temp Pulse Resp BP Pulse Ox 97.5 F L 92 H 20 117/74 99 11/03/20 23:12 11/03/20 23:12 11/03/20 23:12 11/03/20 23:12 11/04/20 01:19 General appearance: Present: no acute distress Results - Labs CBC & Chem 7: 11/01/20 04:39 11/03/20 13:28 Labs: Laboratory Last Values WBC 7.6 K/mm3 (4.5-11.0) 11/01/20 04:39 RBC 3.19 M/mm3 (3.65-5.03) L 11/01/20 04:39 Hgb 11.4 gm/dl (11.8-15.2) L 11/01/20 04:39 Hct 34.5 % (35.5-45.6) L 11/01/20 04:39 MCV 108 fl (84-94) H 11/01/20 04:39 MCH 36 pg (28-32) H 11/01/20 04:39 MCHC 33 % (32-34) 11/01/20 04:39 RDW 16.3 % (13.2-15.2) H 11/01/20 04:39 Plt Count 133 K/mm3 (140-440) L 11/01/20 04:39 Lymph % (Auto) 12.6 % (13.4-35.0) L 10/31/20 05:23 [place] % (Auto) 12.1 % (0.0-7.3) H 10/31/20 05:23 Eos % (Auto) 0.5 % (0.0-4.3) 10/31/20 05:23 Baso % (Auto) 0.1 % (0.0-1.8) 10/31/20 05:23 Lymph # (Auto) 1.1 K/mm3 (1.2-5.4) L 10/31/20 05:23 [place] # (Auto) 1.0 K/mm3 (0.0-0.8) H 10/31/20 05:23 Eos # (Auto) 0.0 K/mm3 (0.0-0.4) 10/31/20 05:23 Baso # (Auto) 0.0 K/mm3 (0.0-0.1) 10/31/20 05:23 Seg Neutrophils % 74.7 % (40.0-70.0) H 10/31/20 05:23 Seg Neutrophils # 6.4 K/mm3 (1.8-7.7) 10/31/20 05:23 ABG pH 7.565 (7.320-7.450) H 10/28/20 20:28 POC ABG pCO2 33.1 mmHg (32.0-48.0) 10/28/20 20:28 POC ABG pO2 203.1 mmHg (83-108) H 10/28/20 20:28 POC ABG HCO3 29.3 10/28/20 20:28 ABG O2 Saturation 99.7 (0-100) 10/28/20 20:28 POC ABG Base Excess 7.2 10/28/20 20:28 ABG Hemoglobin 13.1 (12.0-17.5) 10/28/20 20:28 ABG Oxyhemoglobin 99.0 (94-98) H 10/28/20 20:28 ABG Methemoglobin 0.3 (0.0-1.5) 10/28/20 20:28 ABG Sodium 131.7 mmol/L (136.0-145.0) L 10/28/20 20:28 ABG Potassium 3.5 mmol/L (3.40-4.50) 10/28/20 20:28 ABG Chloride 95.0 mmol/L (98-107) L 10/28/20 20:28 ABG Glucose 114 mg/dL (65-95) H 10/28/20 20:28 Carboxyhemoglobin 0.4 (0.5-1.5) L 10/28/20 20:28 FiO2 % 50 10/28/20 20:28 Sodium 134 mmol/L (137-145) L 11/03/20 13:28 Potassium 3.7 mmol/L (3.6-5.0) 11/03/20 13:28 Chloride 97.2 mmol/L (98-107) L 11/03/20 13:28 Carbon Dioxide 26 mmol/L (22-30) 11/03/20 13:28 Anion Gap 15 mmol/L 11/03/20 13:28 BUN 44 mg/dL (9-20) H 11/03/20 13:28 Creatinine 5.9 mg/dL (0.8-1.3) H 11/03/20 13:28 Estimated GFR 12 ml/min 11/03/20 13:28 BUN/Creatinine Ratio 7 % 11/03/20 13:28 Glucose 160 mg/dL (75-100) H 11/03/20 13:28 POC Glucose 79 mg/dL (70-105) 11/04/20 07:56 Lactic Acid 1.70 mmol/L (0.7-2.0) 10/28/20 23:35 Calcium 9.9 mg/dL (8.4-10.2) 11/03/20 13:28 Phosphorus 2.80 mg/dL (2.5-4.5) 11/03/20 13:28 Magnesium 1.90 mg/dL (1.7-2.3) 11/03/20 13:28 Total Bilirubin 0.40 mg/dL (0.1-1.2) 10/28/20 20:27 AST 13 units/L (5-40) 10/28/20 20:27 ALT 10 units/L (7-56) 10/28/20 20:27 Alkaline Phosphatase 45 units/L (35-129) 10/28/20 20:27 Ammonia 13.0 umol/L (25-60) L 10/28/20 20:27 Total Protein 7.2 g/dL (6.3-8.2) 10/28/20 20:27 Albumin 3.3 g/dL (3.9-5) L 10/28/20 20:27 Albumin/Globulin Ratio 0.8 % 10/28/20 20:27 TSH 2.420 mlU/mL (0.270-4.200) 10/28/20 20:27 Arterial Blood Glucose 114 mg/dL (65-95) H 10/28/20 20:28 Arterial Blood Ionized Calcium 4.4 mg/dL (4.6-5.3) L 10/28/20 20:28 Plasma/Serum Alcohol < 0.01 % (0-0.07) 10/28/20 20:27 Coronavirus (PCR) Negative (Negative) 10/31/20 14:42 Hepatitis A IgM Ab Non-reactive (NonReactive) 10/29/20 08:48 Hep Bs Antigen Nonreactive (Negative) 10/29/20 08:48 Hep B Core IgM Ab Non-reactive (NonReactive) 10/29/20 08:48 Hepatitis C Antibody Non-reactive (NonReactive) 10/29/20 08:48 David/IV: Voiding Method Condom Catheter Active Medications - Current Medications Current Medications: Generic Name Dose Route Start Last Admin Trade Name Freq PRN Reason Stop Dose Admin Acetaminophen 650 mg 10/28/20 22:36 Acetaminophen 325 Mg Tab PO Q4H PRN Pain MILD(1-3)/Fever >100.5/RUIZ Albuterol 2.5 mg 10/28/20 22:36 Albuterol 2.5 Mg/3 Ml Nebu IH Q4HRT PRN Shortness Of Breath Amiodarone HCl 400 mg 11/03/20 13:30 11/03/20 21:08 Amiodarone 200 Mg Tab PO 400 mg TID BECKIE Administration Apixaban 5 mg 10/29/20 10:00 11/03/20 21:09 Apixaban 5 Mg Tab PO 5 mg Q12HR BECKIE Administration Dextrose 50 ml 10/28/20 22:36 10/31/20 22:07 Dextrose 50% In Water (25gm) 50 Ml Syringe IV 50 ml Q30MIN PRN Administration Hypoglycemia Protocol Famotidine 20 mg 11/01/20 10:00 11/03/20 10:11 Famotidine 20 Mg Tab PO 20 mg DAILY BECKIE Administration Dextrose/Sodium Chloride 1,000 mls @ 50 mls/hr 10/29/20 10:00 11/04/20 06:09 D5ns IV 50 mls/hr DIRECT BECKIE Administration Sodium Chloride 100 mls @ 999 mls/hr 10/30/20 11:00 Nacl 0.9% IV NINO PRN Hypotension Insulin Human Lispro 0 unit 10/29/20 07:30 11/03/20 21:09 Insulin Lispro 100 Unit/Ml SUB-Q Not Given ACHS BECKIE Protocol Megestrol Acetate 400 mg 10/29/20 10:00 11/03/20 10:12 Megestrol 400 Mg/10 Ml Oral Liqd PO 400 mg QDAY BECIKE Administration Metoprolol Tartrate 25 mg 11/03/20 19:00 11/04/20 01:00 Metoprolol Tartrate 25 Mg Tab PO Not Given Q6H BECKIE Ondansetron HCl 4 mg 10/28/20 22:36 Ondansetron 4 Mg/2 Ml Inj IV Q8H PRN Nausea And Vomiting Polyethylene Glycol 17 gm 10/28/20 22:40 Polyethylene Glycol 3350 17 Gm Powder PO QDAY PRN Constipation Sodium Chloride 10 ml 10/29/20 10:00 11/03/20 21:09 Sodium Chloride 0.9% 10 Ml Flush Syringe IV 10 ml BID BECKIE Administration Sodium Chloride 10 ml 10/28/20 22:36 Sodium Chloride 0.9% 10 Ml Flush Syringe IV PRN PRN LINE FLUSH Nutrition/Malnutrition Assess - Dietary Evaluation Nutrition/Malnutrition Findings: Nutrition Notes Start: 10/29/20 07:49 Freq: Status: Active Protocol: Document 10/31/20 14:13 (Rec: 10/31/20 14:18 [email or web address]) Nutrition Notes Initial or Follow up Assessment Current Diagnosis CKD (stage V CKD),Diabetes, Heart Failure,Stroke Other Pertinent Diagnosis dementia Current Diet Pureed Labs/Tests BUN 24 Cr 6.1 POC BG 55-115 Pertinent Medications Reviewed Height 6 ft Weight 72 kg [place] Body Weight (kg) 80.90 BMI 21.5 Weight Status Underweight Subjective/Other Information F/u for MST and diet education . Pt not appropriate for diet education due to dementia. Pt did not wake at time of visit. Pt ate 0% of breakfast. Burn Absent Trauma Absent Current % PO Negligible Minimum of two criteria No physical signs of malnutrition #1 Nutrition Diagnosis Inadequate oral intake Etiology dementia As Evidenced by Signs and Symptoms pt not eating Is patient on ventilator? No Is Patient Ambulatory and/or Out of Bed No REE-([facility]-confined to bed) 9837.923 Additional Notes Protein: (>1.2g/kg) >86g Fluid: 1 ml/kcal or per MD Nutrition Intervention Change Diet Order: continue Add Supplement/Snack (indicate name/kcal [place] BID /protein ) Provides kCal: 850 Provides Protein (gm) 38 Goal #1 Meet at least 75% of energy and protein needs via PO and ONS Anticipated Discharge Needs: pureed, renal Follow-Up By: 11/04/20 Additional Comments FU for intakes and ONS tolerance
--- NOTE | 2020-11-04 11:07 | Electrocardiograph Report ---
[facility] Test Date: 2020-11-03 Test Time: 12:42:17 Pat Name: WILLY RUTH Department: Room: A490 1 Gender: M Manager Medical Affairs: david : [id number] Requested By: EDITA CROWDER Order Number: [id number] Reading MD: Bryan Salazar Measurements Intervals [place] Rate: 86 P: ND: QRS: 7 QRSD: 121 T: 234 QT: 340 QTc: 418 Interpretive Statements Atrial fibrillation Ventricular premature complex LVH with IVCD and secondary repol abnrm Anterior ST elevation, probably due to LVH Compared to ECG 10/28/2020 22:47:10 Ventricular premature complex(es) now present Sinus rhythm no longer present ST (T wave) deviation still present Electronically Signed On 11-04-2020 11:06:45 EDT by Bryan Salazar
[2020-11-04] MEDS: INSULIN LISPRO 100 UNIT/ML SUB-Q SCH ×4 (11:30→21:50)
--- NOTE | 2020-11-04 13:04 | Progress Note ---
Assessment and Plan Nonsustained VT AFIB with RVR * Continue amiodarone 400 mg TID. After adequate control of arrhythmias, the dose may be reduced ultimately to 200 mg BID or daily, depending on HR * Continue Eliquis for anticoagulation * Continue to monitor on telemetry Cardiomyopathy HTN * Echo 07/13/2020 shows EF40-45%. LV is normal, LVSF mild to moderately decreased with LVH. LA severely dilated. RA modereately dilated. Moderate aortic Stenosis,mild aortic regurgitation, moderate mitral regurgitation. Severe tricuspid regurgitation and mild pulmonic regurgitation. aortic mean gradient 26.9 mmHG * Continue metoprolol 25mg PO Q6hrs ESRD * Volume control will be managed by nephrology due to patient on HD DVT Prophylaxis * Patient is on Eliquis for oral anticoagulation Patient may need ischemic eval. Patient seen in conjunction with Dr. Salazar who agrees with this plan of care. Will continue to follow - Patient Problems (1) Acute HFrEF (heart failure with reduced ejection fraction) Current Visit: Yes Status: Acute (2) Confusion Current Visit: Yes Status: Acute (3) NSVT (nonsustained ventricular tachycardia) Current Visit: Yes Status: Acute (4) Paroxysmal atrial fibrillation with RVR Current Visit: Yes Status: Acute (5) Cardiomyopathy Current Visit: Yes Status: Chronic (6) DM2 (diabetes mellitus, type 2) Current Visit: Yes Status: Chronic (7) ESRD on dialysis Current Visit: Yes Status: Chronic (8) Hypertensive heart disease Current Visit: Yes Status: Chronic Qualifiers: Heart failure presence: with heart failure (9) Severe tricuspid regurgitation Current Visit: Yes Status: Chronic Subjective Date of service: 11/04/20 Principal diagnosis: ESRD Interval history: Patient at HD this AM Afib 70s with frequent PVCs on monitor Objective Last Vital Signs Temp 98 F 11/04/20 12:46 Pulse 81 11/04/20 12:46 Resp 16 11/04/20 12:46 BP 113/77 11/04/20 12:46 Pulse Ox 95 11/04/20 12:46 - Physical Examination General: No Apparent Distress HEENT: Positive: EOMI, Normocephaly, Mucus Membranes Moist Neck: Positive: neck supple, trachea midline Cardiac: Positive: irregularly irregular Lungs: Positive: Decreased Breath Sounds Neuro: Positive: Grossly Intact, Other (confused.) Abdomen: Positive: Soft, Active Bowel Sounds. Negative: Tender Skin: Positive: Clear. Negative: Rash Musculoskeletal: Normal Range of Motion Extremities: Present: normal. Absent: edema - Labs and Meds Comprehensive Metabolic Panel 11/03/20 Range/Units 13:28 Sodium 134 L (137-145) mmol/L Potassium 3.7 (3.6-5.0) mmol/L Chloride 97.2 L (98-107) mmol/L Carbon Dioxide 26 (22-30) mmol/L BUN 44 H (9-20) mg/dL Creatinine 5.9 H (0.8-1.3) mg/dL Glucose 160 H (75-100) mg/dL Calcium 9.9 (8.4-10.2) mg/dL - Imaging and Cardiology EKG: image reviewed Echo: report reviewed - Telemetry EKG Rhythm: Atrial Fibrillation - EKG Supraventricular dysrhythmia: atrial fibrillation Ventricular dysrhythmias: non-sustained ventricular Repolarization changes or abnormalities: repolarization abn secondary to ventricular hypertrophy Myocardial infarction: septal [place] (old age or ind - Allied health notes Allied health notes reviewed: nursing
[2020-11-04] MEDS: MEGESTROL 400 MG/10 ML ORAL LIQD PO SCH ×2 (15:58→16:02)
[2020-11-04] MEDS: AMIODARONE 200 MG TAB PO SCH ×3 (16:00→20:44)
[2020-11-04] MEDS: FAMOTIDINE 20 MG TAB PO SCH (16:02)
[2020-11-04] MEDS: APIXABAN 5 MG TAB PO SCH ×2 (16:02→21:49)
--- NOTE | 2020-11-04 20:56 | Progress Note ---
Assessment and Plan - Patient Problems (1) ESRD (end stage renal disease) Current Visit: Yes Status: Chronic Plan to address problem: Hemodialysis on a Wednesday, Wednesday and Wednesday schedule. (2) DM2 (diabetes mellitus, type 2) Current Visit: Yes Status: Chronic Plan to address problem: Blood sugar management by primary attending (3) Hypertensive chronic kidney disease with stage 5 chronic kidney disease or end stage renal disease Current Visit: Yes Status: Chronic Plan to address problem: Follow-up blood pressure on current medications (4) Dementia Current Visit: No Status: Chronic Plan to address problem: Will need placement at SNF Subjective Date of service: 11/04/20 Principal diagnosis: ESRD Interval history: Patient seen lying in bed. He has no complaints. Still pleasantly confused Objective - Exam Narrative Exam: Elderly -[place] male lying in bed in no acute distress HEENT: NCAT, Neck: Supple, no venous distention CVS: S1S2 RRR with no murmur, rub or gallop Chest: Clear to auscultation Abdomen: Protuberant, soft, nontender, no organomegaly, bowel sounds are present Extremities: No edema Neuro: Awake, confused conversation - Vital Signs Vital signs: Vital Signs - 12hr 11/04/20 11/04/20 11/04/20 09:10 09:15 09:30 Temperature 97.6 F Pulse Rate 98 H 98 H 89 Respiratory 16 Rate Blood Pressure 125/66 109/75 149/79 Blood Pressure [Right] O2 Sat by Pulse Oximetry O2 Sat by Pulse 98 Oximetry [ Anterior] O2 Sat by Pulse 98 Oximetry [ Bilateral Throughout] 11/04/20 11/04/20 11/04/20 09:45 10:00 10:15 Temperature Pulse Rate 87 86 86 Respiratory Rate Blood Pressure 107/74 112/70 106/57 Blood Pressure [Right] O2 Sat by Pulse Oximetry O2 Sat by Pulse Oximetry [ Anterior] O2 Sat by Pulse Oximetry [ Bilateral Throughout] 11/04/20 11/04/20 11/04/20 10:30 10:45 11:00 Temperature Pulse Rate 79 78 80 Respiratory Rate Blood Pressure 109/57 123/57 94/67 Blood Pressure [Right] O2 Sat by Pulse Oximetry O2 Sat by Pulse Oximetry [ Anterior] O2 Sat by Pulse Oximetry [ Bilateral Throughout] 11/04/20 11/04/20 11/04/20 11:30 11:45 12:00 Temperature Pulse Rate 83 81 81 Respiratory Rate Blood Pressure 100/65 124/54 100/52 Blood Pressure [Right] O2 Sat by Pulse Oximetry O2 Sat by Pulse Oximetry [ Anterior] O2 Sat by Pulse Oximetry [ Bilateral Throughout] 11/04/20 11/04/20 11/04/20 12:15 12:46 14:00 Temperature 98 F Pulse Rate 86 81 90 Respiratory 16 Rate Blood Pressure 110/56 113/77 Blood Pressure [Right] O2 Sat by Pulse 99 Oximetry O2 Sat by Pulse 99 Oximetry [ Anterior] O2 Sat by Pulse 95 Oximetry [ Bilateral Throughout] 11/04/20 11/04/20 17:00 20:53 Temperature 98.9 F Pulse Rate 87 87 Respiratory 18 Rate Blood Pressure Blood Pressure 120/64 [Right] O2 Sat by Pulse Oximetry O2 Sat by Pulse Oximetry [ Anterior] O2 Sat by Pulse Oximetry [ Bilateral Throughout] - Lab 11/01/20 04:39 11/03/20 13:28 Most recent lab results ABG pH 7.565 (7.320-7.450) H 10/28/20 20:28 ABG O2 Saturation 99.7 (0-100) 10/28/20 20:28 Calcium 9.9 mg/dL (8.4-10.2) 11/03/20 13:28 Phosphorus 2.80 mg/dL (2.5-4.5) 11/03/20 13:28 Magnesium 1.90 mg/dL (1.7-2.3) 11/03/20 13:28 Medications & Allergies - Medications Allergies/Adverse Reactions: Allergies No Known Allergies Allergy (Verified 09/28/20 20:06) Home Medications: Home Medications Medication Instructions Recorded Confirmed Last Taken Type Epoetin Blayne 10,000 Unit [Procrit] 10,000 unit IV NINO PRN #1 vial 12/02/18 02/05/20 11/20/19 10:00 Rx polyethylene glycoL 3350 [Miralax 17 gm PO QDAY PRN #30 powd.pack 11/22/19 02/05/20 Unknown Rx 3350] Famotidine [Pepcid] 10 mg PO BID #60 tablet 09/20/20 Unknown Rx amLODIPine 5 mg PO QDAY #30 tablet 09/20/20 Unknown Rx Apixaban [Eliquis] 5 mg PO Q12HR tablet 10/08/20 Unknown Rx Metoprolol [Lopressor TAB] 25 mg PO BID tablet 10/08/20 Unknown Rx megestroL [Megestrol] 400 mg PO QDAY oral.liqd 10/08/20 Unknown Rx Active Medications: Generic Name Dose Route Start Last Admin Trade Name Freq PRN Reason Stop Dose Admin Acetaminophen 650 mg 10/28/20 22:36 Acetaminophen 325 Mg Tab PO Q4H PRN Pain MILD(1-3)/Fever >100.5/RUIZ Albuterol 2.5 mg 10/28/20 22:36 Albuterol 2.5 Mg/3 Ml Nebu IH Q4HRT PRN Shortness Of Breath Amiodarone HCl 400 mg 11/03/20 13:30 11/04/20 20:44 Amiodarone 200 Mg Tab PO 400 mg TID BECKIE Administration Apixaban 5 mg 10/29/20 10:00 11/04/20 16:02 Apixaban 5 Mg Tab PO 5 mg Q12HR BECKIE Administration Dextrose 50 ml 10/28/20 22:36 10/31/20 22:07 Dextrose 50% In Water (25gm) 50 Ml Syringe IV 50 ml Q30MIN PRN Administration Hypoglycemia Protocol Famotidine 20 mg 11/01/20 10:00 11/04/20 16:02 Famotidine 20 Mg Tab PO 20 mg DAILY BECKIE Administration Dextrose/Sodium Chloride 1,000 mls @ 50 mls/hr 10/29/20 10:00 11/04/20 06:09 D5ns IV 50 mls/hr DIRECT BECKIE Administration Sodium Chloride 100 mls @ 999 mls/hr 10/30/20 11:00 Nacl 0.9% IV NINO PRN Hypotension Insulin Human Lispro 0 unit 10/29/20 07:30 11/04/20 15:59 Insulin Lispro 100 Unit/Ml SUB-Q Not Given ACHS BECKIE Protocol Megestrol Acetate 400 mg 10/29/20 10:00 11/04/20 16:02 Megestrol 400 Mg/10 Ml Oral Liqd PO 400 mg QDAY BECKIE Administration Metoprolol Tartrate 25 mg 11/03/20 19:00 11/04/20 20:48 Metoprolol Tartrate 25 Mg Tab PO 25 mg Q6H BECKIE Administration Ondansetron HCl 4 mg 10/28/20 22:36 Ondansetron 4 Mg/2 Ml Inj IV Q8H PRN Nausea And Vomiting Polyethylene Glycol 17 gm 10/28/20 22:40 Polyethylene Glycol 3350 17 Gm Powder PO QDAY PRN Constipation Sodium Chloride 10 ml 10/29/20 10:00 11/03/20 21:09 Sodium Chloride 0.9% 10 Ml Flush Syringe IV 10 ml BID BECKIE Administration Sodium Chloride 10 ml 10/28/20 22:36 Sodium Chloride 0.9% 10 Ml Flush Syringe IV PRN PRN LINE FLUSH
[2020-11-05] MEDS: METOPROLOL TARTRATE 25 MG TAB PO SCH ×4 (02:20→22:04)
[2020-11-05 06:50] LABS: Hematocrit 30.1 % (35.5-45.6); Hemoglobin 10.1 gm/dl (11.8-15.2); Mean Corpuscular HGB Conc 34 % (32-34); Mean Corpuscular Volume 105 fl (84-94); Platelet Count 163 K/mm3 (140-440); Red Blood Count 2.88 M/mm3 (3.65-5.03); Red Cell Distribution Width 16.3 % (13.2-15.2)
[2020-11-05 07:21] LABS: Calcium 10.1 mg/dL (8.4-10.2)
--- NOTE | 2020-11-05 08:40 | Progress Note ---
Assessment and Plan - Patient Problems (1) ESRD (end stage renal disease) Current Visit: Yes Status: Chronic Plan to address problem: Hemodialysis on a Wednesday, Wednesday and Wednesday schedule. (2) DM2 (diabetes mellitus, type 2) Current Visit: Yes Status: Chronic Plan to address problem: Blood sugar management by primary attending (3) Hypertensive chronic kidney disease with stage 5 chronic kidney disease or end stage renal disease Current Visit: Yes Status: Chronic Plan to address problem: Follow-up blood pressure on current medications (4) Dementia Current Visit: No Status: Chronic Plan to address problem: Will need placement at SNF Subjective Date of service: 11/06/20 Principal diagnosis: ESRD Interval history: Patient seen lying in bed. He has no complaints. Still pleasantly confused Objective - Exam Narrative Exam: Elderly -[place] male lying in bed in no acute distress HEENT: NCAT, Neck: Supple, no venous distention CVS: S1S2 RRR with no murmur, rub or gallop Chest: Clear to auscultation Abdomen: Protuberant, soft, nontender, no organomegaly, bowel sounds are present Extremities: No edema Neuro: Awake, confused conversation - Vital Signs Vital signs: Vital Signs - 12hr 11/04/20 11/04/20 11/05/20 20:53 22:43 03:20 Temperature 98.0 F Pulse Rate 87 74 Respiratory 18 Rate Blood Pressure 135/73 O2 Sat by Pulse 93 99 Oximetry 11/05/20 11/05/20 05:06 07:42 Temperature 97.4 F L 97.2 F L Pulse Rate 94 H 85 Respiratory 18 20 Rate Blood Pressure 130/78 161/90 O2 Sat by Pulse 99 93 Oximetry - Lab 11/05/20 05:31 11/05/20 05:31 Most recent lab results ABG pH 7.565 (7.320-7.450) H 10/28/20 20:28 ABG O2 Saturation 99.7 (0-100) 10/28/20 20:28 Calcium 10.1 mg/dL (8.4-10.2) 11/05/20 05:31 Phosphorus 2.80 mg/dL (2.5-4.5) 11/03/20 13:28 Magnesium 1.90 mg/dL (1.7-2.3) 11/03/20 13:28 Medications & Allergies - Medications Allergies/Adverse Reactions: Allergies No Known Allergies Allergy (Verified 09/28/20 20:06) Home Medications: Home Medications Medication Instructions Recorded Confirmed Last Taken Type Epoetin Blayne 10,000 Unit [Procrit] 10,000 unit IV NINO PRN #1 vial 12/02/18 02/05/20 11/20/19 10:00 Rx polyethylene glycoL 3350 [Miralax 17 gm PO QDAY PRN #30 powd.pack 11/22/19 02/05/20 Unknown Rx 3350] Apixaban [Eliquis] 5 mg PO Q12HR tablet 10/08/20 Unknown Rx Metoprolol [Lopressor TAB] 25 mg PO BID tablet 10/08/20 Unknown Rx megestroL [Megestrol] 400 mg PO QDAY oral.liqd 10/08/20 Unknown Rx ALBUTEROL NEB's [Proventil 0.083% 2.5 mg IH Q4HRT PRN nebu 11/05/20 Unknown Rx NEBS] Amiodarone [Cordarone 200 MG TAB] 200 mg PO BID tablet 11/05/20 Unknown Rx Famotidine [Pepcid] 20 mg PO DAILY tablet 11/05/20 Unknown Rx Lispro Insulin [HumaLOG] 0 unit SUB-Q ACHS units 11/05/20 Unknown Rx Active Medications: Generic Name Dose Route Start Last Admin Trade Name Freq PRN Reason Stop Dose Admin Acetaminophen 650 mg 10/28/20 22:36 Acetaminophen 325 Mg Tab PO Q4H PRN Pain MILD(1-3)/Fever >100.5/RUIZ Albuterol 2.5 mg 10/28/20 22:36 Albuterol 2.5 Mg/3 Ml Nebu IH Q4HRT PRN Shortness Of Breath Amiodarone HCl 400 mg 11/03/20 13:30 11/04/20 20:44 Amiodarone 200 Mg Tab PO 400 mg TID BECKIE Administration Apixaban 5 mg 10/29/20 10:00 11/04/20 21:49 Apixaban 5 Mg Tab PO 5 mg Q12HR BECKIE Administration Dextrose 50 ml 10/28/20 22:36 10/31/20 22:07 Dextrose 50% In Water (25gm) 50 Ml Syringe IV 50 ml Q30MIN PRN Administration Hypoglycemia Protocol Famotidine 20 mg 11/01/20 10:00 11/04/20 16:02 Famotidine 20 Mg Tab PO 20 mg DAILY BECKIE Administration Dextrose/Sodium Chloride 1,000 mls @ 50 mls/hr 10/29/20 10:00 11/04/20 06:09 D5ns IV 50 mls/hr DIRECT BECKIE Administration Sodium Chloride 100 mls @ 999 mls/hr 10/30/20 11:00 Nacl 0.9% IV NINO PRN Hypotension Insulin Human Lispro 0 unit 10/29/20 07:30 11/04/20 21:50 Insulin Lispro 100 Unit/Ml SUB-Q Not Given ACHS BECKIE Protocol Megestrol Acetate 400 mg 10/29/20 10:00 11/04/20 16:02 Megestrol 400 Mg/10 Ml Oral Liqd PO 400 mg QDAY BECKIE Administration Metoprolol Tartrate 25 mg 11/03/20 19:00 11/05/20 02:20 Metoprolol Tartrate 25 Mg Tab PO 25 mg Q6H BECKIE Administration Ondansetron HCl 4 mg 10/28/20 22:36 Ondansetron 4 Mg/2 Ml Inj IV Q8H PRN Nausea And Vomiting Polyethylene Glycol 17 gm 10/28/20 22:40 Polyethylene Glycol 3350 17 Gm Powder PO QDAY PRN Constipation Sodium Chloride 10 ml 10/29/20 10:00 11/04/20 21:53 Sodium Chloride 0.9% 10 Ml Flush Syringe IV 10 ml BID BECKIE Administration Sodium Chloride 10 ml 10/28/20 22:36 Sodium Chloride 0.9% 10 Ml Flush Syringe IV PRN PRN LINE FLUSH
[2020-11-05] MEDS: INSULIN LISPRO 100 UNIT/ML SUB-Q SCH ×3 (09:28→22:06)
[2020-11-05] MEDS: FAMOTIDINE 20 MG TAB PO SCH (09:36)
[2020-11-05] MEDS: AMIODARONE 200 MG TAB PO SCH ×2 (09:36→22:04)
[2020-11-05] MEDS: APIXABAN 5 MG TAB PO SCH ×2 (09:36→22:04)
[2020-11-05] MEDS: MEGESTROL 400 MG/10 ML ORAL LIQD PO SCH (09:37)
--- NOTE | 2020-11-05 12:21 | Progress Note ---
Assessment and Plan Nonsustained VT AFIB with RVR * Patient converted to normal sinus rhythm this AM. Decreased amiodarone 200 mg BID. * Continue Eliquis for anticoagulation * Continue to monitor on telemetry Cardiomyopathy HTN * Echo 07/13/2020 shows EF40-45%. LV is normal, LVSF mild to moderately decreased with LVH. LA severely dilated. RA modereately dilated. Moderate aortic Stenosis,mild aortic regurgitation, moderate mitral regurgitation. Severe tricuspid regurgitation and mild pulmonic regurgitation. aortic mean gradient 26.9 mmHG * Continue metoprolol 25mg PO Q6hrs ESRD * Volume control will be managed by nephrology due to patient on HD DVT Prophylaxis * Patient is on Eliquis for oral anticoagulation Plan for outpatient ischemic eval. Patient is stable and may be discharged from a cardiac perspective. Patient may follow up with Dr. Salazar, [facility], on 11/22/2020 at 2:30pm at our [place] location. Patient seen in conjunction with Dr. Salazar who agrees with this plan of care. Will see as needed - Patient Problems (1) Acute HFrEF (heart failure with reduced ejection fraction) Current Visit: Yes Status: Acute (2) Confusion Current Visit: Yes Status: Acute (3) NSVT (nonsustained ventricular tachycardia) Current Visit: Yes Status: Acute (4) Paroxysmal atrial fibrillation with RVR Current Visit: Yes Status: Acute (5) Cardiomyopathy Current Visit: Yes Status: Chronic (6) DM2 (diabetes mellitus, type 2) Current Visit: Yes Status: Chronic (7) ESRD on dialysis Current Visit: Yes Status: Chronic (8) Hypertensive heart disease Current Visit: Yes Status: Chronic Qualifiers: Heart failure presence: with heart failure (9) Severe tricuspid regurgitation Current Visit: Yes Status: Chronic Subjective Date of service: 11/05/20 Principal diagnosis: ESRD Interval history: Patient resting in bed. Reports feeling tired but has no cardiac complaints Patient was afib overnight but converted to sinus rhythm 90s at 5:20am. Patient had 7 beat run vtach on monitor Objective Last Vital Signs Temp 98.2 F 11/05/20 12:00 Pulse 75 11/05/20 12:00 Resp 20 11/05/20 12:00 BP 119/77 11/05/20 12:00 Pulse Ox 97 11/05/20 12:00 - Physical Examination General: No Apparent Distress HEENT: Positive: EOMI, Normocephaly, Mucus Membranes Moist Neck: Positive: neck supple, trachea midline Cardiac: Positive: Reg Rate and Rhythm Lungs: Positive: Decreased Breath Sounds Neuro: Positive: Grossly Intact, Other (confused.) Abdomen: Positive: Soft, Active Bowel Sounds. Negative: Tender Skin: Positive: Clear. Negative: Rash Musculoskeletal: Normal Range of Motion Extremities: Present: normal, edema (upper left extrmity edema) - Labs and Meds CBC 11/05/20 Range/Units 05:31 WBC 5.7 (4.5-11.0) K/mm3 RBC 2.88 L (3.65-5.03) M/mm3 Hgb 10.1 L (11.8-15.2) gm/dl Hct 30.1 L (35.5-45.6) % Plt Count 163 (140-440) K/mm3 Comprehensive Metabolic Panel 11/05/20 Range/Units 05:31 Sodium 139 (137-145) mmol/L Potassium 4.1 (3.6-5.0) mmol/L Chloride 99.3 (98-107) mmol/L Carbon Dioxide 30 (22-30) mmol/L BUN 43 H (9-20) mg/dL Creatinine 5.6 H (0.8-1.3) mg/dL Glucose 82 (75-100) mg/dL Calcium 10.1 (8.4-10.2) mg/dL - Imaging and Cardiology EKG: image reviewed Echo: report reviewed - Telemetry EKG Rhythm: Sinus Rhythm - EKG Sinus rhythms and dysrhythmias: sinus rhythm Ventricular dysrhythmias: non-sustained ventricular Repolarization changes or abnormalities: repolarization abn secondary to ventricular hypertrophy Myocardial infarction: septal MA (old age or ind - Allied health notes Allied health notes reviewed: nursing
--- NOTE | 2020-11-05 12:58 | Discharge Summary ---
Providers - Providers Date of Admission: 10/28/20 22:37 Date of discharge: 11/06/20 Attending physician: VINAYAK CHESTER 10/28/20 22:14 Consult to Physician [CONS] Routine Comment: Consulting Provider: ALETHA VELAZQUEZ Physician Instructions: Reason For Exam: ESRD on HD, Volume overload 10/28/20 22:37 Consult to Dietitian/Nutrition [CONS] Routine Physician Instructions: Reason For Exam: Reason for Consult: Diet education 10/30/20 10:27 Speech Therapy Evaluation and Treat [CONS] Routine Reason For Exam: aspiration 10/30/20 12:18 Occupational Therapy Evaluate and Treat [CONS] Urgent Comment: Reason For Exam: OT to eval and treat Physical Therapy Evaluation and Treat [CONS] Urgent Comment: Reason For Exam: PT to eval and treat 11/03/20 12:02 Consult to Physician [CONS] Routine Comment: Consulting Provider: TYRELL ABBOTT Physician Instructions: [facility] physician: BODY TRIMMER Hospitalization Condition: Stable Hospital course: 70-year-old male with past medical history of hypertension, CHF, end-stage renal disease on dialysis, diabetes, A. fib, aortic stenosis, CVA and dementia was brought to the emergency room because of some hypotension, hypoxia, and lethargy after receiving dialysis. The patient was seen here about 1 month ago for similar symptoms. Apparently EMS initially found the patient to have a room air pulse ox of about 60% on room air and supplemental oxygen was increased until he was on a nonrebreather which finally got him up into the 90s. Initial CT scan of the head shows extensive microvascular angiopathy without CT evidence of acute intracranial hemorrhage. He was placed on ventimask and admitted for further Mx. Daily clinical course: 10/29: We will rule out for COVID-19, test ordered, pt on ventimask, nephro consulted for HD, follow clinically 10/30: s/p HD today, pt on RA, very confused, ordered PT/ST 10/31 Patient with acute metabolic encephalopathy, acute resp failure, ESRD on dialysis. He is still confused. Ammonia level not elevated. 11/01/20 Patient with dementia, acute metabolic encephalopathy. he is improved, close to baseline. He is stable to discharge back to SNF. Discharge orders put in but waiting on authorization for SNF to take him back. 11/02/20 Patient with dementia, acute metabolic encephalopathy. he is improved, close to baseline. He is stable to discharge back to SNF. Discharge orders put in yesterday but he did not go. Waiting on authorization for SNF to take him back. 11/03/20 Patient with dementia, acute metabolic encephalopathy. He has improved and is now close to baseline. He is stable to discharge back to SNF. Discharge orders put in 11/01/20 but he did not go. Waiting on authorization for SNF to take him back. 11/04/20 yesterday had multiple episodes of bigeminy, ventricular tachycardia runs. Phos an Mg were done, were normal. Cardiology was consulted. He was evaluated by Dr. Abbott and started him on Amiodarone and mentions possible ischemic workup. Therefore not stable for discharge until after cleared by Cardiology. 11/05/20: Patient converted to normal sinus rhythm this AM. Decreased amiodarone 200 mg BID. cardiology recommended stress test as outpt. Planned for d/c today to SNF with outpt f/u with cardiology but assisted requesting repeat Covid test. Repeat Covid test ordered, will continue to follow. 11/06/20: Negative Covid test is normal, status post hemodialysis today. Patient was noted hypoglycemic following hemoglobin, given D50 and nephro booster to drink. Blood sugar stabilized. Patient remains asymptomatic. Patient will be discharged back to assisted in stable condition with outpatient follow-up. A/P -- Acute metabolic encephalopathy most likely secondary to dementia, chronic kidney disease and hypoxia. CT head w/o any acute infract supportive care, monitor clinically --Acute Hypoxic Respiratory failure, resolved likely due to volume overload from ESRD and underlying CHF negative for COVID DuoNeb by nebulizer every 4 hours. Albuterol via nebulizer every 4 hours as needed. consulted nephrology for dialysis -- ESRD on dialysis Avoid nephrotoxic drug. Renally dose medication. consulted nephrology for dialysis -- Acute on chronic diastolic and systolic (congestive) heart failure Stable. We will continue the home medication. Outpatient follow-up with cardiology for stress test --Nonsustained VT/AFIB with RVR Patient converted to normal sinus rhythm . Decreased amiodarone 200 mg BID. Continue Eliquis for anticoagulation, stress test as outpt --Cardiomyopathy/HTN Echo 07/13/2020 shows EF40-45%. LA severely dilated. RA modereately dilated. Moderate aortic Stenosis,mild aortic regurgitation, moderate mitral regurgitation. Severe tricuspid regurgitation and mild pulmonic regurgitation. aortic mean gradient 26.9 mmHG Continue metoprolol 25mg PO Q6hrs -- Vascular dementia supportive care. Outpatient follow-up with neurology -- Transient hypotension Resolved. Blood pressure is now 128/87. We will monitor the blood pressure closely. We continue the home medication -- DM2 (diabetes mellitus, type 2) We will put the patient on 1800 kcal ADA pureed diet. Humalog sliding scale Accu-Chek before meals and at bedtime with moderate dose coverage. Diabetic education --CVA, old cont eliquis, statin, follow up outpt with neurology --Intermittent hypoglycemia, due to poor oral intake, placed on Megace as appetite stimulant Encouraged to increase oral intake -- DVT prophylaxis: Eliquis 5 mg p.o. twice daily for DVT prophylaxis. Pepcid 20 mg daily for GI prophylaxis. Patient is a full code Disposition: [facility]AY FACILITY Final Discharge Diagnosis (Prints w/discharge instructions): -- Acute metabolic encephalopathy. --Acute Hypoxic Respiratory failure, resolved. -- ESRD on dialysis. -- Acute on chronic diastolic and systolic (congestive) heart failure. --Nonsustained VT/AFIB with RVR. --Cardiomyopathy/HTN. -- Vascular dementia. -- Transient hypotension. -- DM2 (diabetes mellitus, type 2). --CVA, old. --Anemia of CD. --Intermittent hypoglycemia due to poor appetite Time spent for discharge: 34 minutes Core Measure Documentation - Palliative Care Palliative Care/ Comfort Measures: Not Applicable - Core Measures Any of the following diagnoses?: heart failure, history only - Heart Failure Discharge Requirements MAGDA/ARB for LVSD if EF <40%: Not Applicable Reason for no MAGDA/ARB: Renal impairment Beta pam at discharge: Yes Exam - Physical Exam Narrative exam: General appearance: Present: no acute distress, well-nourished, other (elderly AAM appears calm and quiet and nonverbal) - EENT Eyes: PERRL, EOM intact ENT: hearing intact, clear oral mucosa Ears: bilateral: normal - Neck Neck: supple, normal ROM - Respiratory Respiratory effort: normal Respiratory: bilateral: CTA - Breasts Breasts: normal - Cardiovascular Rhythm: regular Heart Sounds: Present: S1 & S2. Absent: gallop, rub Extremities: pulses intact, No edema, normal color, Full ROM - Gastrointestinal General gastrointestinal: Present: soft, non-tender, non-distended, normal bowel sounds - Integumentary Integumentary: clear, warm, dry - Musculoskeletal Musculoskeletal: generalized weakness - Neurologic Neurologic: moves all extremities, no gait normal - Psychiatric Psychiatric: no appropriate mood/affect, no intact judgment & insight, no memory intact - Constitutional Vitals: Temp Pulse Resp BP Pulse Ox 98.2 F 75 20 119/77 97 11/05/20 12:00 11/05/20 12:00 11/05/20 12:00 11/05/20 12:00 11/05/20 12:00 Plan Activity: up only with assistance, fall precautions Weight Bearing Status: Non-Weight Bearing Diet: renal Additional Instructions: Follow-up with cardiology in 1 week for outpatient stress test. Patient may follow up with Dr. Salazar, [facility], 1-2 weeks after discharge. Plan of Treatment: 1.Follow up with Physician at SNF in 2-3 days Follow up with: PRIMARY CAREMD [Primary Care Provider] - 3-5 Days
[2020-11-05] MEDS: D5W/0.9% NACL 1,000 ML IV SCH (18:51)
[2020-11-06] MEDS ORDERED: diphenhydrAMINE 50 MG/ML VIAL IV PRN (01:17)
[2020-11-06] MEDS: METOPROLOL TARTRATE 25 MG TAB PO SCH ×3 (01:43→15:45)
[2020-11-06] MEDS: DEXTROSE 50% IN WATER (25GM) 50 ML SYRINGE IV PRN ×2 (09:24→16:12)
[2020-11-06] MEDS: FAMOTIDINE 20 MG TAB PO SCH (09:29)
[2020-11-06] MEDS: AMIODARONE 200 MG TAB PO SCH (09:29)
[2020-11-06] MEDS: APIXABAN 5 MG TAB PO SCH (09:29)
[2020-11-06] MEDS: INSULIN LISPRO 100 UNIT/ML SUB-Q SCH ×3 (09:30→16:12)
[2020-11-06] MEDS: MEGESTROL 400 MG/10 ML ORAL LIQD PO SCH (09:32)
[2020-11-06 15:43] VITALS: BP 132/69
--- NOTE | 2020-11-06 16:09 | Progress Note ---
Assessment and Plan -- Acute metabolic encephalopathy most likely secondary to dementia, chronic kidney disease and hypoxia. CT head w/o any acute infract supportive care, monitor clinically --Acute Hypoxic Respiratory failure on room air. likely due to volume overload from ESRD and underlying CHF ordered for COVID DuoNeb by nebulizer every 4 hours. Albuterol via nebulizer every 4 hours as needed. consulted nephrology for dialysis We will monitor the patient closely --Acute on chronic systolic CHF, EF 40 to 45% Cardiology following, continue medical management Volume status control with hemodialysis -- ESRD on dialysis Avoid nephrotoxic drug. Renally dose medication. consulted nephrology for dialysis -- Acute diastolic (congestive) heart failure Stable. We will continue the home medication. Outpatient follow-up with cardiology -- Vascular dementia supportive care. Outpatient follow-up with neurology -- Transient hypotension Resolved. Blood pressure is now 128/87. We will monitor the blood pressure closely. We continue the home medication -- DM2 (diabetes mellitus, type 2) We will put the patient on 1800 kcal ADA pureed diet. Humalog sliding scale Accu-Chek before meals and at bedtime with moderate dose coverage. Diabetic education --CVA, old cont eliquis, statin, follow up outpt with neurology -- DVT prophylaxis: Eliquis 5 mg p.o. twice daily for DVT prophylaxis. Pepcid 20 mg IV twice daily for GI prophylaxis. Patient is a full code Daily clinical course: 10/29: We will rule out for COVID-19, test ordered, pt on ventimask, nephro consulted for HD, follow clinically 10/30: s/p HD today, pt on RA, very confused, ordered PT/ST 10/31 Patient with acute metabolic encephalopathy, acute resp failure, ESRD on dialysis. He is still confused. Ammonia level not elevated. 11/01/20 Patient with dementia, acute metabolic encephalopathy. he is improved, close to baseline. He is stable to discharge back to SNF. Discharge orders put in but waiting on authorization for SNF to take him back. 11/02/20 Patient with dementia, acute metabolic encephalopathy. he is improved, close to baseline. He is stable to discharge back to SNF. Discharge orders put in yesterday but he did not go. Waiting on authorization for SNF to take him back. 11/03/20 Patient with dementia, acute metabolic encephalopathy. He has improved and is now close to baseline. He is stable to discharge back to SNF. Discharge orders put in 11/01/20 but he did not go. Waiting on authorization for SNF to take him back. 11/04/20 yesterday had multiple episodes of bigeminy, ventricular tachycardia runs. Phos an Mg were done, were normal. Cardiology was consulted. He was evaluated by Dr. Caceres and started him on Amiodarone and mentions possible ischemic workup. Therefore not stable for discharge until after cleared by Cardiology. 11/05/20: Patient converted to normal sinus rhythm this AM. Decreased amiodarone 200 mg BID. cardiology recommended stress test as outpt. Planned for d/c today to SNF with outpt f/u with cardiology but snf requesting repeat Covid test. Repeat Covid test ordered, will continue to follow. Subjective Date of service: 11/05/20 Principal diagnosis: ESRD Interval history: Patient seen and examined pt on room air very confused but alert Ordered for repeat Covid test Objective - Exam Narrative Exam: General appearance: Present: no acute distress, well-nourished, other (elderly AAM appears calm and quiet and nonverbal) - EENT Eyes: PERRL, EOM intact ENT: hearing intact, clear oral mucosa Ears: bilateral: normal - Neck Neck: supple, normal ROM - Respiratory Respiratory effort: normal Respiratory: bilateral: CTA - Breasts Breasts: normal - Cardiovascular Rhythm: regular Heart Sounds: Present: S1 & S2. Absent: gallop, rub Extremities: pulses intact, No edema, normal color, Full ROM - Gastrointestinal General gastrointestinal: Present: soft, non-tender, non-distended, normal bowel sounds - Integumentary Integumentary: clear, warm, dry - Musculoskeletal Musculoskeletal: generalized weakness - Neurologic Neurologic: moves all extremities, no gait normal - Psychiatric Psychiatric: no appropriate mood/affect, no intact judgment & insight, no memory intact - Constitutional Vitals: Vital Signs - 12hr 11/06/20 11/06/20 11/06/20 04:56 08:17 10:00 Temperature 98.7 F 98.3 F Pulse Rate 77 74 Respiratory 18 18 18 Rate Blood Pressure 143/80 144/76 Blood Pressure [Right] O2 Sat by Pulse 98 99 99 Oximetry O2 Sat by Pulse Oximetry [ Anterior] O2 Sat by Pulse Oximetry [ Bilateral Throughout] 11/06/20 11/06/20 11/06/20 10:30 10:40 10:45 Temperature 98.7 F Pulse Rate 72 74 72 Respiratory 20 Rate Blood Pressure 136/72 139/79 132/72 Blood Pressure [Right] O2 Sat by Pulse Oximetry O2 Sat by Pulse 96 Oximetry [ Anterior] O2 Sat by Pulse 96 Oximetry [ Bilateral Throughout] 11/06/20 11/06/20 11/06/20 11:00 11:15 11:30 Temperature Pulse Rate 74 75 73 Respiratory Rate Blood Pressure 128/72 128/72 125/65 Blood Pressure [Right] O2 Sat by Pulse Oximetry O2 Sat by Pulse Oximetry [ Anterior] O2 Sat by Pulse Oximetry [ Bilateral Throughout] 11/06/20 11/06/20 11/06/20 11:45 12:00 12:15 Temperature Pulse Rate 72 76 73 Respiratory Rate Blood Pressure 109/59 112/50 111/63 Blood Pressure [Right] O2 Sat by Pulse Oximetry O2 Sat by Pulse Oximetry [ Anterior] O2 Sat by Pulse Oximetry [ Bilateral Throughout] 11/06/20 11/06/20 11/06/20 12:30 12:45 13:00 Temperature Pulse Rate 76 76 75 Respiratory Rate Blood Pressure 113/61 113/61 110/65 Blood Pressure [Right] O2 Sat by Pulse Oximetry O2 Sat by Pulse Oximetry [ Anterior] O2 Sat by Pulse Oximetry [ Bilateral Throughout] 11/06/20 11/06/20 11/06/20 13:15 13:30 13:45 Temperature Pulse Rate 76 73 73 Respiratory Rate Blood Pressure 107/64 113/59 111/60 Blood Pressure [Right] O2 Sat by Pulse Oximetry O2 Sat by Pulse Oximetry [ Anterior] O2 Sat by Pulse Oximetry [ Bilateral Throughout] 11/06/20 11/06/20 11/06/20 14:00 14:30 15:41 Temperature 97.2 F L Pulse Rate 53 L 75 75 Respiratory 18 18 Rate Blood Pressure 112/52 106/62 132/69 Blood Pressure [Right] O2 Sat by Pulse 95 Oximetry O2 Sat by Pulse 96 Oximetry [ Anterior] O2 Sat by Pulse 96 Oximetry [ Bilateral Throughout] 11/06/20 11/06/20 15:43 15:45 Temperature 97.9 F Pulse Rate 67 67 Respiratory 18 Rate Blood Pressure 132/69 Blood Pressure 132/69 [Right] O2 Sat by Pulse 97 Oximetry O2 Sat by Pulse Oximetry [ Anterior] O2 Sat by Pulse Oximetry [ Bilateral Throughout] - Labs CBC & Chem 7: 11/05/20 05:31 11/05/20 05:31 Labs: Abnormal lab results 11/05/20 11/05/20 Range/Units 16:08 21:50 POC Glucose 110 H 107 H (70-105) mg/dL
--- NOTE | 2020-11-06 19:07 | Progress Note ---
Assessment and Plan - Patient Problems (1) ESRD (end stage renal disease) Current Visit: Yes Status: Chronic Plan to address problem: Hemodialysis on a Wednesday, Wednesday and Wednesday schedule. (2) DM2 (diabetes mellitus, type 2) Current Visit: Yes Status: Chronic Plan to address problem: Blood sugar management by primary attending (3) Hypertensive chronic kidney disease with stage 5 chronic kidney disease or end stage renal disease Current Visit: Yes Status: Chronic Plan to address problem: Follow-up blood pressure on current medications (4) Dementia Current Visit: No Status: Chronic Plan to address problem: Will need placement at SNF Subjective Date of service: 11/06/20 Principal diagnosis: ESRD Interval history: Patient seen lying in bed. He has no complaints. he is just back from dialysis. About to eat Objective - Exam Narrative Exam: Elderly -Filipino male lying in bed in no acute distress HEENT: NCAT, Neck: Supple, no venous distention CVS: S1S2 RRR with no murmur, rub or gallop Chest: Clear to auscultation Abdomen: Protuberant, soft, nontender, no organomegaly, bowel sounds are present Extremities: No edema Neuro: Awake, confused conversation - Vital Signs Vital signs: Vital Signs - 12hr 11/06/20 11/06/20 11/06/20 08:17 10:00 10:30 Temperature 98.3 F 98.7 F Pulse Rate 74 72 Respiratory 18 18 20 Rate Blood Pressure 144/76 136/72 Blood Pressure [Right] O2 Sat by Pulse 99 99 Oximetry O2 Sat by Pulse 96 Oximetry [ Anterior] O2 Sat by Pulse 96 Oximetry [ Bilateral Throughout] 11/06/20 11/06/20 11/06/20 10:40 10:45 11:00 Temperature Pulse Rate 74 72 74 Respiratory Rate Blood Pressure 139/79 132/72 128/72 Blood Pressure [Right] O2 Sat by Pulse Oximetry O2 Sat by Pulse Oximetry [ Anterior] O2 Sat by Pulse Oximetry [ Bilateral Throughout] 11/06/20 11/06/20 11/06/20 11:15 11:30 11:45 Temperature Pulse Rate 75 73 72 Respiratory Rate Blood Pressure 128/72 125/65 109/59 Blood Pressure [Right] O2 Sat by Pulse Oximetry O2 Sat by Pulse Oximetry [ Anterior] O2 Sat by Pulse Oximetry [ Bilateral Throughout] 11/06/20 11/06/20 11/06/20 12:00 12:15 12:30 Temperature Pulse Rate 76 73 76 Respiratory Rate Blood Pressure 112/50 111/63 113/61 Blood Pressure [Right] O2 Sat by Pulse Oximetry O2 Sat by Pulse Oximetry [ Anterior] O2 Sat by Pulse Oximetry [ Bilateral Throughout] 11/06/20 11/06/20 11/06/20 12:45 13:00 13:15 Temperature Pulse Rate 76 75 76 Respiratory Rate Blood Pressure 113/61 110/65 107/64 Blood Pressure [Right] O2 Sat by Pulse Oximetry O2 Sat by Pulse Oximetry [ Anterior] O2 Sat by Pulse Oximetry [ Bilateral Throughout] 11/06/20 11/06/20 11/06/20 13:30 13:45 14:00 Temperature Pulse Rate 73 73 53 L Respiratory Rate Blood Pressure 113/59 111/60 112/52 Blood Pressure [Right] O2 Sat by Pulse Oximetry O2 Sat by Pulse Oximetry [ Anterior] O2 Sat by Pulse Oximetry [ Bilateral Throughout] 11/06/20 11/06/20 11/06/20 14:30 15:41 15:43 Temperature 97.2 F L 97.9 F Pulse Rate 75 75 67 Respiratory 18 18 18 Rate Blood Pressure 106/62 132/69 Blood Pressure 132/69 [Right] O2 Sat by Pulse 95 97 Oximetry O2 Sat by Pulse 96 Oximetry [ Anterior] O2 Sat by Pulse 96 Oximetry [ Bilateral Throughout] 11/06/20 15:45 Temperature Pulse Rate 67 Respiratory Rate Blood Pressure 132/69 Blood Pressure [Right] O2 Sat by Pulse Oximetry O2 Sat by Pulse Oximetry [ Anterior] O2 Sat by Pulse Oximetry [ Bilateral Throughout] - Lab 11/05/20 05:31 11/05/20 05:31 Most recent lab results ABG pH 7.565 (7.320-7.450) H 10/28/20 20:28 ABG O2 Saturation 99.7 (0-100) 10/28/20 20:28 Calcium 10.1 mg/dL (8.4-10.2) 11/05/20 05:31 Phosphorus 2.80 mg/dL (2.5-4.5) 11/03/20 13:28 Magnesium 1.90 mg/dL (1.7-2.3) 11/03/20 13:28 Medications & Allergies - Medications Allergies/Adverse Reactions: Allergies No Known Allergies Allergy (Verified 09/28/20 20:06) Home Medications: Home Medications Medication Instructions Recorded Confirmed Last Taken Type Epoetin Blayne 10,000 Unit [Procrit] 10,000 unit IV NINO PRN #1 vial 12/02/18 02/05/20 11/20/19 10:00 Rx polyethylene glycoL 3350 [Miralax 17 gm PO QDAY PRN #30 powd.pack 11/22/19 02/05/20 Unknown Rx 3350] Apixaban [Eliquis] 5 mg PO Q12HR tablet 10/08/20 Unknown Rx Metoprolol [Lopressor TAB] 25 mg PO BID tablet 10/08/20 Unknown Rx megestroL [Megestrol] 400 mg PO QDAY oral.liqd 10/08/20 Unknown Rx ALBUTEROL NEB's [Proventil 0.083% 2.5 mg IH Q4HRT PRN nebu 11/05/20 Unknown Rx NEBS] Amiodarone [Cordarone 200 MG TAB] 200 mg PO BID tablet 11/05/20 Unknown Rx Famotidine [Pepcid] 20 mg PO DAILY tablet 11/05/20 Unknown Rx Lispro Insulin [HumaLOG] 0 unit SUB-Q ACHS units 11/05/20 Unknown Rx Active Medications: Generic Name Dose Route Start Last Admin Trade Name Freq PRN Reason Stop Dose Admin Acetaminophen 650 mg 10/28/20 22:36 11/05/20 09:36 Acetaminophen 325 Mg Tab PO 650 mg Q4H PRN Administration Pain MILD(1-3)/Fever >100.5/RUIZ Albuterol 2.5 mg 10/28/20 22:36 Albuterol 2.5 Mg/3 Ml Nebu IH Q4HRT PRN Shortness Of Breath Amiodarone HCl 200 mg 11/05/20 22:00 11/06/20 09:29 Amiodarone 200 Mg Tab PO 200 mg BID BECKIE Administration Apixaban 5 mg 10/29/20 10:00 11/06/20 09:29 Apixaban 5 Mg Tab PO 5 mg Q12HR BECKIE Administration Dextrose 50 ml 10/28/20 22:36 11/06/20 16:12 Dextrose 50% In Water (25gm) 50 Ml Syringe IV 50 ml Q30MIN PRN Administration Hypoglycemia Protocol Diphenhydramine HCl 25 mg 11/06/20 01:17 11/06/20 01:43 Diphenhydramine 50 Mg/Ml Vial IV 25 mg Q6H PRN Administration Itching Famotidine 20 mg 11/01/20 10:00 11/06/20 09:29 Famotidine 20 Mg Tab PO 20 mg DAILY BECKIE Administration Dextrose/Sodium Chloride 1,000 mls @ 50 mls/hr 10/29/20 10:00 11/05/20 18:51 D5ns IV 50 mls/hr DIRECT BECKIE Administration Sodium Chloride 100 mls @ 999 mls/hr 10/30/20 11:00 Nacl 0.9% IV NINO PRN Hypotension Insulin Human Lispro 0 unit 10/29/20 07:30 11/06/20 16:12 Insulin Lispro 100 Unit/Ml SUB-Q Not Given ACHS [facility] Protocol Megestrol Acetate 400 mg 10/29/20 10:00 11/06/20 09:32 Megestrol 400 Mg/10 Ml Oral Liqd PO 400 mg QDAY BECKIE Administration Metoprolol Tartrate 25 mg 11/03/20 19:00 11/06/20 15:45 Metoprolol Tartrate 25 Mg Tab PO 25 mg Q6H BECKIE Administration Ondansetron HCl 4 mg 10/28/20 22:36 Ondansetron 4 Mg/2 Ml Inj IV Q8H PRN Nausea And Vomiting Polyethylene Glycol 17 gm 10/28/20 22:40 Polyethylene Glycol 3350 17 Gm Powder PO QDAY PRN Constipation Sodium Chloride 10 ml 10/29/20 10:00 11/06/20 09:30 Sodium Chloride 0.9% 10 Ml Flush Syringe IV 10 ml BID BECKIE Administration Sodium Chloride 10 ml 10/28/20 22:36 Sodium Chloride 0.9% 10 Ml Flush Syringe IV PRN PRN LINE FLUSH
== END 2020-11-06 09:00 | DRG 70 ==
LOC: ED 18:17 → 4A 22:37
PROVIDERS: ADMIT Hospitalist; ATTEND Internal Medicine
PROC: 4A033R1 Measurement of Arterial Saturation, Peripheral, Percutaneous Approach (ICD-10-PCS; 2020-10-28)
PROC: 5A1D70Z Performance of Urinary Filtration, Intermittent, Less than 6 Hours Per Day (ICD-10-PCS; principal; 2020-11-01)
PROC: 5A1D70Z Performance of Urinary Filtration, Intermittent, Less than 6 Hours Per Day (ICD-10-PCS; 2020-11-04)
PROC: 5A1D70Z Performance of Urinary Filtration, Intermittent, Less than 6 Hours Per Day (ICD-10-PCS; 2020-11-06)
DX: G93.41 Metabolic encephalopathy (principal); N18.6 End stage renal disease; J96.01 Acute respiratory failure with hypoxia; I50.33 Acute on chronic diastolic (congestive) heart failure; I13.2 Hypertensive heart and chronic kidney disease with heart failure and with stage 5 chronic kidney disease, or end stage renal disease; E87.2 Acidosis; I47.2 Ventricular tachycardia; I42.9 Cardiomyopathy, unspecified; D63.1 Anemia in chronic kidney disease; I95.9 Hypotension, unspecified; E11.22 Type 2 diabetes mellitus with diabetic chronic kidney disease; E87.70 Fluid overload, unspecified; F01.50 Vascular dementia, unspecified severity, without behavioral disturbance, psychotic disturbance, mood disturbance, and anxiety; I48.0 Paroxysmal atrial fibrillation; I35.0 Nonrheumatic aortic (valve) stenosis; I07.1 Rheumatic tricuspid insufficiency; Z20.822 Contact with and (suspected) exposure to COVID-19; E11.649 Type 2 diabetes mellitus with hypoglycemia without coma; Z99.2 Dependence on renal dialysis; Z86.73 Personal history of transient ischemic attack (TIA), and cerebral infarction without residual deficits; Z87.891 Personal history of nicotine dependence
CPT/HCPCS: 36415; 70450; 71045; 80048; 80053; 80074; 80320; 82140; 82805; 82962; 83735; 84100; 84443; 85025; 85027; 93005; 94640; 94644; 94760; G0378; G0480; J0696; J0885; J1200; J7042; U0003